=== PATIENT | female | born 1950 ===

== ENCOUNTER 2016-05-01 18:48 | Inpatient (IN) | payer MEDICARE, OTHER ==
[2016-05-01] MEDS ORDERED: SODIUM CHLORIDE 0.9% 1,000 ML IV STA ×4 (20:20→23:08)
[2016-05-01 20:42] LABS: Basophils % (A) 0 %; CH 30.1; Eosinophils # (A) 0.2 k/uL (0-0.7); Eosinophils % (A) 2 %; HCT 30.8 % (34.0-46.0); HDW 2.53; HGB 9.9 gm/dL (11.4-16.0); Luc # (Auto) 0.11; Luc % (Auto) 1; Lymphocytes # (A) 1.4 k/uL (1.0-4.8); Lymphocytes % (A) 12 %; MCH 30.4 pg (25.0-35.0); MCHC 32.1 g/dL (31.0-37.0); MCV 94.7 fL (80.0-100.0); Mean Platelet Volume 7.1; Monocytes # (A) 0.8 k/uL (0-1.0); Monocytes % (A) 7 %; Neutrophils # (A) 9.1 k/uL (1.3-7.7); Neutrophils % (A) 79 %; RBC 3.26 m/uL (3.80-5.40); RDW 12.7 % (11.5-15.5); WBC 11.6 k/uL (3.8-10.6); WBC (Perox) 12.01
[2016-05-01 20:50] LABS: Calcium 9.9 mg/dL (8.4-10.2); Magnesium 1.7 mg/dL (1.6-2.3); Phosphorous 5.6 mg/dL (2.5-4.5); Total Bilirubin 0.7 mg/dL (0.2-1.3); Total Protein 7.4 g/dL (6.3-8.2)
[2016-05-01 20:53] LABS: Potassium 7.8 mmol/L (3.5-5.1)
[2016-05-01 21:02] LABS: INR 1.1 (<1.1); Partial Thromboplastin Time 25.1 sec (22.0-30.0); Prothrombin Time 10.6 sec (9.0-12.0)
[2016-05-01 21:09] LABS: Creatine Kinase 178 U/L (30-135)
--- NOTE | 2016-05-01 21:13 | ED ---
General Adult HPI - General Chief complaint: Neuro Symptoms/Deficit Stated complaint: SENT BY DOC FOR POSS MINI STROKES Time Seen by Provider: 05/01/16 19:51 Source: family, RN notes reviewed, old records reviewed Mode of arrival: wheelchair Limitations: no limitations - History of Present Illness Initial comments: This is a 65-year-old female ER for evaluation. This patient presents for evaluation of not acting appropriate alter mental status, weakness, dizziness. Patient states she has dizziness in her head, pain in her back. She is here voluntarily without difficulty she feels nauseous with no vomiting. Patient states she's had a decreased activity level results of heart surgery 2 years ago. No fevers or cough congestion. Known diarrhea or vomiting - Related Data Home Medications Medication Instructions Recorded Confirmed Citalopram Hydrobromide [CeleXA] 20 mg PO HS 03/31/15 05/01/16 Multivitamins, Thera [Multivitamin] 1 tab PO DAILY 07/02/15 05/01/16 Atorvastatin [Lipitor] 80 mg PO HS 08/01/15 05/01/16 Carvedilol [Coreg*] 37.5 mg PO BID-W/MEALS 08/01/15 05/01/16 Esomeprazole Magnesium [NexIUM] 20 mg PO DAILY 08/01/15 05/01/16 Isosorbide Mononitrate ER [Imdur] 30 mg PO QAM 08/01/15 05/01/16 metFORMIN HCL 1,000 mg PO AC-BID 08/28/15 05/01/16 Furosemide [Lasix] 40 mg PO DAILY 05/01/16 05/01/16 Insulin Detemir [Levemir] 30 units SQ HS 05/01/16 05/01/16 Levothyroxine Sodium [Synthroid] 75 mcg PO DAILY 05/01/16 05/01/16 Spironolact/Hydrochlorothiazid 1 tab PO DAILY 05/01/16 05/01/16 [Aldactazide 25-25 MG] Spironolactone [Aldactone] 25 mg PO DAILY 05/01/16 05/01/16 Previous Rx's Medication Instructions Recorded Nitroglycerin Sl Tabs [Nitrostat] 0.4 mg SUBLINGUAL Q5M PRN #25 tab 04/03/15 Aspirin 81 mg PO DAILY #1 chewable 06/05/15 INSULIN LISPRO (humaLOG) [humaLOG 10 unit SQ AC-TID #1 vial 08/29/15 (formulary)] Losartan Potassium [Cozaar] 100 mg PO DAILY #30 tab 08/29/15 amLODIPine [Norvasc] 10 mg PO HS #30 tablet 08/29/15 Allergies Allergy/AdvReac Type Severity Reaction Status Date / Time No Known Allergies Allergy Verified 05/01/16 19:20 Review of Systems ROS Statement: Those systems with pertinent positive or pertinent negative responses have been documented in the HPI. ROS Other: All systems not noted in ROS Statement are negative. Past Medical History Past Medical History: Chest Pain / Angina, Diabetes Mellitus, Hypertension, Myocardial Infarction ([place]) Additional Past Medical History / Comment(s): OTHER PAST MEDICAL HX INCLUDES:rt cataract, coronary artery disease with Stent to Proximal LAD 03/31/2015, diabetes mellitus, hypertension, hyperlipidemia, hypoglycemic events Last Myocardial Infarction Date:: 03/31/2015 History of Any Multi-Drug Resistant Organisms: None Reported Past Surgical History: Breast Surgery, Heart Catheterization With Stent Additional Past Surgical History / Comment(s): left breast bx-neg, buttocks sx- pt stated:" they told me I had gangrene and had sx to remove", lt cataract Past Anesthesia/Blood Transfusion Reactions: No Reported Reaction Date of Last Stent Placement:: unknown Past Psychological History: Depression Smoking Status: Never smoker Past Alcohol Use History: None Reported Past Drug Use History: None Reported - Past Family History Father Family Medical History: Unable to Obtain Mother Family Medical History: Diabetes Mellitus, Hypertension General Exam Limitations: no limitations, altered mental status General appearance: alert, in no apparent distress, lethargic, obese Head exam: Present: atraumatic, normocephalic, normal inspection Eye exam: Present: normal appearance, PERRL, EOMI. Absent: scleral icterus, conjunctival injection, periorbital swelling ENT exam: Present: normal exam, mucous membranes moist Neck exam: Present: normal inspection. Absent: tenderness, meningismus, lymphadenopathy Respiratory exam: Present: normal lung sounds bilaterally. Absent: respiratory distress, wheezes, rales, rhonchi, stridor Cardiovascular Exam: Present: regular rate, normal rhythm, normal heart sounds. Absent: systolic murmur, diastolic murmur, rubs, gallop, clicks GI/Abdominal exam: Present: soft, normal bowel sounds. Absent: distended, tenderness, guarding, rebound, rigid Extremities exam: Present: normal inspection, full ROM, normal capillary refill. Absent: tenderness, pedal edema, joint swelling, calf tenderness Back exam: Present: normal inspection Neurological exam: Present: alert, oriented X3, CN II-XII intact Psychiatric exam: Present: normal affect, normal mood Skin exam: Present: warm, dry, intact, normal color. Absent: rash Course Vital Signs 05/01/16 05/01/16 19:00 22:31 Temperature 97.8 F 98.3 F Pulse Rate 84 84 Respiratory 20 18 Rate Blood Pressure 107/68 136/58 O2 Sat by Pulse 98 96 Oximetry - Reevaluation(s) Reevaluation #1: 05/01/16 21:12 Patient surgeries with mildly altered mental status, weakness Reevaluation #2: 05/01/16 23:12 Patient continues to sew improved mental status Reevaluation #3: 05/01/16 23:12 No EKG changes for hyperkalemia EKG Findings - EKG Comments: EKG Findings:: EKG shows Medical Decision Making - Medical Decision Making This 59 med ER for evaluation of weakness, patient had 2 medications, Aldactone and spironolactone, subsequently was elevated potassium, patient also noted to have severe dehydration and urinary tract infection and also mental status on exam. Patient given adequately resuscitation and feeling better, patient treated for elevated potassium, given rehydration, antibiotics for UTI, - Lab Data Result diagrams: 05/01/16 20:29 05/01/16 20:29 Lab Results 05/01/16 05/01/16 05/01/16 Range/Units 20:29 20:29 20:29 WBC 11.6 H (3.8-10.6) k/uL RBC 3.26 L (3.80-5.40) m/uL Hgb 9.9 L (11.4-16.0) gm/dL Hct 30.8 L (34.0-46.0) % MCV 94.7 (80.0-100.0) fL MCH 30.4 (25.0-35.0) pg MCHC 32.1 (31.0-37.0) g/dL RDW 12.7 (11.5-15.5) % Plt Count 254 (150-450) k/uL Neutrophils % 79 % Lymphocytes % 12 % Monocytes % 7 % Eosinophils % 2 % Basophils % 0 % Neutrophils # 9.1 H (1.3-7.7) k/uL Lymphocytes # 1.4 (1.0-4.8) k/uL Monocytes # 0.8 (0-1.0) k/uL Eosinophils # 0.2 (0-0.7) k/uL Basophils # 0.0 (0-0.2) k/uL PT (9.0-12.0) sec INR (<1.1) APTT (22.0-30.0) sec Sodium 139 (137-145) mmol/L Potassium 7.8 H* (3.5-5.1) mmol/L Chloride 114 H (98-107) mmol/L Carbon Dioxide 11 L (22-30) mmol/L Anion Gap 14 mmol/L BUN 59 H (7-17) mg/dL Creatinine 2.84 H (0.52-1.04) mg/dL Est GFR (MDRD) Af Amer 20 (>60 ml/min/1.73 sqM) Est GFR (MDRD) Non-Af 17 (>60 ml/min/1.73 sqM) Glucose 136 H (74-99) mg/dL POC Glucose (mg/dL) (75-99) mg/dL POC Glu Oil Well Perforator Operator ID Calcium 9.9 (8.4-10.2) mg/dL Phosphorus 5.6 H (2.5-4.5) mg/dL Magnesium 1.7 (1.6-2.3) mg/dL Total Bilirubin 0.7 (0.2-1.3) mg/dL AST 17 (14-36) U/L ALT 34 (9-52) U/L Alkaline Phosphatase 87 (38-126) U/L Total Creatine Kinase 178 H (30-135) U/L CK-MB (CK-2) 1.3 (0.0-2.4) ng/mL CK-MB (CK-2) Rel Index 0.7 Troponin I <0.012 (0.000-0.034) ng/mL Total Protein 7.4 (6.3-8.2) g/dL Albumin 3.8 (3.5-5.0) g/dL TSH 0.639 (0.465-4.680) mIU/L Urine Color Urine Appearance (Clear) Urine pH (5.0-8.0) Ur Specific [place] (1.001-1.035) Urine Protein (Negative) Urine Glucose (UA) (Negative) Urine Ketones (Negative) Urine Blood (Negative) Urine Nitrate (Negative) Urine Bilirubin (Negative) Urine Urobilinogen (<2.0) mg/dL Ur Leukocyte Esterase (Negative) Urine RBC (0-5) /hpf Urine WBC (0-5) /hpf Urine WBC Clumps (None) /hpf Ur Squamous Epith Cells (0-4) /hpf Urine Bacteria (None) /hpf Hyaline Casts (0-2) /lpf 05/01/16 05/01/16 05/01/16 Range/Units 20:29 21:45 23:06 WBC (3.8-10.6) k/uL RBC (3.80-5.40) m/uL Hgb (11.4-16.0) gm/dL Hct (34.0-46.0) % MCV (80.0-100.0) fL MCH (25.0-35.0) pg MCHC (31.0-37.0) g/dL RDW (11.5-15.5) % Plt Count (150-450) k/uL Neutrophils % % Lymphocytes % % Monocytes % % Eosinophils % % Basophils % % Neutrophils # (1.3-7.7) k/uL Lymphocytes # (1.0-4.8) k/uL Monocytes # (0-1.0) k/uL Eosinophils # (0-0.7) k/uL Basophils # (0-0.2) k/uL PT 10.6 (9.0-12.0) sec INR 1.1 (<1.1) APTT 25.1 (22.0-30.0) sec Sodium (137-145) mmol/L Potassium (3.5-5.1) mmol/L Chloride (98-107) mmol/L Carbon Dioxide (22-30) mmol/L Anion Gap mmol/L BUN (7-17) mg/dL Creatinine (0.52-1.04) mg/dL Est GFR (MDRD) Af Amer (>60 ml/min/1.73 sqM) Est GFR (MDRD) Non-Af (>60 ml/min/1.73 sqM) Glucose (74-99) mg/dL POC Glucose (mg/dL) 158 H (75-99) mg/dL POC Glu Oil Well Per[employer]ator Operator ID Kathi Arroyo Calcium (8.4-10.2) mg/dL Phosphorus (2.5-4.5) mg/dL Magnesium (1.6-2.3) mg/dL Total Bilirubin (0.2-1.3) mg/dL AST (14-36) U/L ALT (9-52) U/L Alkaline Phosphatase (38-126) U/L Total Creatine Kinase (30-135) U/L CK-MB (CK-2) (0.0-2.4) ng/mL CK-MB (CK-2) Rel Index Troponin I (0.000-0.034) ng/mL Total Protein (6.3-8.2) g/dL Albumin (3.5-5.0) g/dL TSH (0.465-4.680) mIU/L Urine Color Yellow Urine Appearance Cloudy H (Clear) Urine pH 5.0 (5.0-8.0) Ur Specific [place] 1.009 (1.001-1.035) Urine Protein Trace H (Negative) Urine Glucose (UA) Negative (Negative) Urine Ketones Negative (Negative) Urine Blood Negative (Negative) Urine Nitrate Negative (Negative) Urine Bilirubin Negative (Negative) Urine Urobilinogen <2.0 (<2.0) mg/dL Ur Leukocyte Esterase Large H (Negative) Urine RBC 2 (0-5) /hpf Urine WBC 103 H (0-5) /hpf Urine WBC Clumps Few H (None) /hpf Ur Squamous Epith Cells 1 (0-4) /hpf Urine Bacteria Many H (None) /hpf Hyaline Casts 49 H (0-2) /lpf - Radiology Data Radiology results: report reviewed (CT brain negative for acute disease, x-ray abdomen and pelvis the chest is negative for acute disease), image reviewed Critical Care Time Critical Care Time: Yes Total Critical Care Time: 31 Disposition Clinical Impression: ARF (acute renal failure), Hyperkalemia, Dehydration, Weakness, UTI (urinary tract infection) Disposition: ADMITTED IP TO THIS [facility] Condition: Serious Referrals: Eduin Moore MD [Primary Care Provider] - 1-2 days
[2016-05-01 21:22] LABS: Creatine Kinase MB 1.3 ng/mL (0.0-2.4); Troponin I <0.012 ng/mL (0.000-0.034)
--- NOTE | 2016-05-01 21:39 | XR ---
EXAMINATION TYPE: XR abdomen acute w cx DATE OF EXAM: 05/01/2016 9:10 PM COMPARISON: NONE HISTORY: Abdominal pain and cough TECHNIQUE: Single view of the chest and 2 views of the abdomen are submitted. FINDINGS: Single view of the chest fails demonstrate evidence for acute pulmonary disease. There is no evidence for pneumoperitoneum. The bowel gas pattern is unremarkable as there is air throughout nondilated small and large bowel. No sizeable air fluid levels. No mass effects are seen. No unusual calcifications. IMPRESSION: UNREMARKABLE STUDY.
[2016-05-01] MEDS ORDERED: SODIUM POLYSTYRENE SULFONATE 15 GM/60 ML BOTTLE PO STA (21:50)
[2016-05-01] MEDS ORDERED: DEXTROSE 50%-WATER 50 ML SYRINGE IVP STA (21:50)
[2016-05-01] MEDS ORDERED: SODIUM CHLORIDE 0.9% 500 ML IV STA (21:50)
[2016-05-01] MEDS ORDERED: INSULIN REGULAR 100 UNIT/ML VIAL IV ONE (21:50)
[2016-05-01 22:13] LABS: Appearance,Urine Cloudy (Clear); Bacteria,Urine Many /hpf; Bilirubin,Urine Negative (Negative); Glucose,Urine (UA) Negative (Negative); Ketones,Urine Negative (Negative); Leukocyte Esterase,Urine Large (Negative); Nitrite,Urine Negative (Negative); Particle Count 24055; Protein,Urine Trace (Negative); RBC,Urine 2 /hpf (0-5); Specific Gravity,Urine 1.009 (1.001-1.035); Squamous Epithelial Cell,Urine 1 /hpf (0-4); UA Billing (MACRO vs. MICRO) MICRO; Urobilinogen,Urine <2.0 mg/dL (<2.0); WBC,Urine 103 /hpf (0-5)
--- NOTE | 2016-05-01 22:22 | CT ---
EXAMINATION TYPE: CT brain wo con DATE OF EXAM: 05/01/2016 10:15 PM COMPARISON: 08/28/2015 HISTORY: weakness CT DLP: 1072.3 mGycm Automated exposure control for dose reduction was used. FINDINGS: Ventricles have normal size. There is no mass effect or midline shift. There is no sign of intracrani al hemorrhage. The calvarium is intact. There is mucosal thickening in the sphenoid and ethmoid front al and maxillary sinuses. IMPRESSION: There is pansinusitis that is significantly worse than last exam. No acute intracranial abnormality. There is a large fluid-filled sella turcica consistent with empty sella that is unchanged and usually is of no clinical significance.
[2016-05-01 23:07] LABS: Glucose,Whole Blood 158 mg/dL (75-99)
[2016-05-02 00:15] LABS: Calcium 9.1 mg/dL (8.4-10.2)
[2016-05-02 00:20] LABS: Potassium 6.2 mmol/L (3.5-5.1)
[2016-05-02 01:54] VITALS: BMI 38.0
[2016-05-02 06:51] LABS: Glucose,Whole Blood 154 mg/dL (75-99)
[2016-05-02 06:55] LABS: Basophils % (A) 0 %; CHCM 31.9; Eosinophils # (A) 0.1 k/uL (0-0.7); Eosinophils % (A) 1 %; HCT 31.6 % (34.0-46.0); HDW 2.61; HGB 9.9 gm/dL (11.4-16.0); Luc # (Auto) 0.09; Luc % (Auto) 1; Lymphocytes # (A) 1.2 k/uL (1.0-4.8); Lymphocytes % (A) 13 %; MCH 29.5 pg (25.0-35.0); MCHC 31.2 g/dL (31.0-37.0); MCV 94.6 fL (80.0-100.0); Mean Platelet Volume 7.5; Monocytes # (A) 0.7 k/uL (0-1.0); Monocytes % (A) 8 %; Neutrophils # (A) 7.1 k/uL (1.3-7.7); Neutrophils % (A) 77 %; RBC 3.34 m/uL (3.80-5.40); RDW 12.8 % (11.5-15.5); WBC 9.2 k/uL (3.8-10.6); WBC (Perox) 9.85
[2016-05-02 07:07] LABS: Calcium 9.1 mg/dL (8.4-10.2)
[2016-05-02 07:15] LABS: Potassium 6.6 mmol/L (3.5-5.1)
[2016-05-02] MEDS: INSULIN LISPRO (humaLOG) 300 UNIT/3 ML VIAL SQ SCH ×3 (07:42→19:29)
[2016-05-02] MEDS: LEVOTHYROXINE 75 MCG TAB PO SCH (07:42)
[2016-05-02] MEDS ORDERED: SODIUM CHLORIDE 0.9% 1,000 ML IV SCH (07:45)
[2016-05-02 08:05] LABS: Hemoglobin A1C 6.8 % (4.2-6.1)
[2016-05-02] MEDS ORDERED: ENOXAPARIN 40 MG/0.4 ML SYRINGE SQ SCH (09:00)
[2016-05-02] MEDS ORDERED: NITROGLYCERIN SL TABS 0.4 MG TAB SUBLINGUAL PRN (09:53)
[2016-05-02] MEDS ORDERED: SPIRONOLACTONE-HCTZ 25-25MG 1 EACH TAB PO SCH (10:00)
[2016-05-02] MEDS ORDERED: NON-FORMULARY DRUG (Losartan Potassium [Cozaar] 100 MG) PO SCH (10:00)
[2016-05-02] MEDS ORDERED: SODIUM CHLORIDE 0.45% 1,000 ML IV SCH (10:00)
[2016-05-02] MEDS ORDERED: NON-FORMULARY DRUG (Metformin Hcl [Metformin Hcl] 1,000 MG) PO SCH (10:00)
[2016-05-02] MEDS ORDERED: FUROSEMIDE 40 MG TAB PO SCH (10:00)
[2016-05-02] MEDS ORDERED: SPIRONOLACTONE 25 MG TAB PO SCH (10:00)
[2016-05-02 11:42] LABS: Glucose,Whole Blood 118 mg/dL (75-99)
[2016-05-02] MEDS: ASPIRIN 81 MG CHEW PO SCH (12:34)
[2016-05-02] MEDS: CARVEDILOL 12.5 MG TAB PO SCH ×2 (12:34→19:40)
[2016-05-02] MEDS: ISOSORBIDE MONONITRATE ER 30 MG TAB.ER.24H PO SCH (12:35)
[2016-05-02] MEDS: PANTOPRAZOLE 40 MG TABLET PO SCH (12:35)
[2016-05-02] MEDS: SODIUM POLYSTYRENE SULFONATE 15 GM/60 ML BOTTLE PO SCH ×2 (12:38→19:40)
[2016-05-02] MEDS: SODIUM CHLORIDE 0.45% 1,000 ML with SODIUM BICARB (1 MEQ/ML) 100 ML IV SCH ×4 (14:04→23:11)
--- NOTE | 2016-05-02 14:26 | HP ---
DATE OF ADMISSION: 05/01/2016 PRESENTING COMPLAINT: Weak and tired. HISTORY OF PRESENTING COMPLAINT: This is a 65-year-old patient of Dr. Moore with rather extensive medical history. Patient's chronic stable medical conditions include congestive heart failure ejection fraction ( )%, hypertensive heart disease, moderate secondary pulmonary hypertension, coronary artery disease with stent to the LAD, hyperlipidemia, diabetes mellitus type 2, morbid obesity, depression, hypertension. Patient's family is here. Patient recently had flu, decreased oral intake. Has been feeling weak, tired and rundown. When presented to the ER was found to be in acute renal failure with a BUN 59, creatinine 2.84 and potassium 7.8. Patient had been on ( ) renal offensive drugs. Admitted for the same, just tired and rundown. REVIEW OF SYSTEMS: CONSTITUTIONAL: Tired. HEENT: None. RESPIRATORY: None. CARDIOVASCULAR: None. GASTROINTESTINAL: None. GENITOURINARY: None. MUSCULOSKELETAL: Pain in the joints. DERMATOLOGICAL: None. HEMATOLOGICAL: None. LYMPHATICS: None. PSYCHIATRY: Slightly confused. NEUROLOGICAL: None. Past medical history of hypertension, depression, diabetes mellitus type 2, hyperlipidemia, coronary artery disease with stent to the LAD, moderate mitral regurgitation, moderate secondary pulmonary hypertension, hypertensive heart disease, congestive heart failure; ejection fraction 35% to 40%. PAST SURGICAL HISTORY: Cardiac cath with stent, left breast biopsy, left buttock gangrene surgically repaired. SOCIAL HISTORY: No smoking. No alcohol. . FAMILY HISTORY: Noncontributory to presentation. ALLERGIES: None. HOME MEDICATIONS: 1. Metformin 1000 mg p.o. b.i.d. 2. Norvasc 10 mg p.o. q.h.s. 3. Aldactone 25 mg p.o. daily. 4. Aldactazide 25/25 one tablet p.o. daily. 5. Nitrostat 0.4 sublingual q.5 p.r.n. 6. Multivitamin 1 tablet p.o. daily. 7. Cozaar 100 mg p.o. daily. 8. Synthroid 75 mcg p.o. daily. 9. Imdur ER 30 mg p.o. daily. 10. Levemir 30 units subcu q.h.s. 11. Humalog 10 units t.i.d. 12. Lasix 40 mg p.o. daily. 13. Nexium 20 mg p.o. daily. 14. Celexa 20 mg p.o. q.h.s. 15. Coreg 37.5 p.o. b.i.d. 16. Lipitor 80 mg p.o. q.h.s. 17. Aspirin 81 mg p.o. daily. ALLERGIES: None. ON EXAMINATION: VITAL SIGNS ON PRESENTATION: Temperature 97.8, pulse 84, respirations 20, blood pressure 107/68, pulse ox 98% on room air. GENERAL APPEARANCE: Well built, BMI 38.1, lying in bed, tired appearing. EYES: Pupils equal. Conjunctivae normal. HEENT: External appearance of nose and ears normal. Oral cavity normal. NECK: JVD not raised. Mass not palpable. RESPIRATORY: Effort normal. LUNGS: Diminished breath sounds. CARDIOVASCULAR: First and second sounds normal. No edema. ABDOMEN: Soft, nontender. Liver and spleen not palpable. PSYCHIATRY: Tired appearing, able to answer simple questions. NEUROLOGICAL: Pupils equal. Cranial nerves grossly intact. Power and sensation grossly intact. INVESTIGATIONS: White count11.6, hemoglobin 9.9. Potassium 7.8, initially repeat 6.2. BUN 59, creatinine 2.84. Patient's BUN and creatinine was normal on 08/29/15. Glucose 133. UA positive for leukocyte esterase, bacteria. ASSESSMENT: 1. Acute severe renal failure; could be ( ) acute tubular necrosis and also combination of prerenal in a patient with decreased oral intake. Patient is also on Aldactone, Aldactazide, Cozaar, Lasix. 2. Severe hyperkalemia from renal failure and medication induced. 3. Chronic congestive heart failure from diastolic dysfunction, ejection fraction 55% from underlying coronary artery disease. 4. Hypertensive heart disease, concentric left ventricular hypertrophy. 5. Moderate secondary pulmonary hypertension. 6. Moderate mitral regurgitation, nonrheumatic. 7. Coronary artery disease with stent to the left anterior descending artery in March 2015. 8. Hyperlipidemia. 9. Diabetes mellitus type 2, chronically on insulin. 10. Morbid obesity; body mass index more than 35. 11. Depression, not otherwise specified, controlled. PLAN: At this point patient's renal offensive drugs including metformin, Cozaar, Aldactazide, Aldactone all are discontinued. Patient will be put on half saline and given bicarb will be added. Accu-Cheks will be closely followed. Keep it in mind patient has got underlying congestive heart failure. Care was discussed with the family at the bedside. Lovenox for DVT prophylaxis. Accu-Cheks will be closely followed. Patient also given Kayexalate. Will also add some ( ) for hyperkalemia and put the patient on low potassium diet.
[2016-05-02 16:54] LABS: Glucose,Whole Blood 129 mg/dL (75-99)
[2016-05-02 20:39] LABS: Glucose,Whole Blood 202 mg/dL (75-99)
[2016-05-02] MEDS: amLODIPine 10 MG TAB PO SCH (20:46)
[2016-05-02] MEDS: ATORVASTATIN 80 MG TAB PO SCH (20:46)
[2016-05-02] MEDS: CITALOPRAM HYDROBROMIDE 20 MG TAB PO SCH (20:47)
[2016-05-02] MEDS: INSULIN DETEMIR 100 UNIT/ML 10 ML VIAL SQ SCH (21:03)
[2016-05-03 06:14] LABS: Glucose,Whole Blood 126 mg/dL (75-99)
[2016-05-03] MEDS: CARVEDILOL 12.5 MG TAB PO SCH ×2 (06:54→17:10)
[2016-05-03] MEDS: LEVOTHYROXINE 75 MCG TAB PO SCH (06:54)
[2016-05-03] MEDS: INSULIN LISPRO (humaLOG) 300 UNIT/3 ML VIAL SQ SCH ×3 (07:25→17:26)
[2016-05-03] MEDS: PANTOPRAZOLE 40 MG TABLET PO SCH (08:44)
[2016-05-03] MEDS: ASPIRIN 81 MG CHEW PO SCH (08:44)
[2016-05-03] MEDS: ISOSORBIDE MONONITRATE ER 30 MG TAB.ER.24H PO SCH (08:44)
[2016-05-03] MEDS ORDERED: ENOXAPARIN 30 MG/0.3 ML SYRINGE SQ SCH (09:00)
[2016-05-03 11:29] LABS: Glucose,Whole Blood 74 mg/dL (75-99)
[2016-05-03 12:00] LABS: Anion Gap 9 mmol/L; Blood Urea Nitrogen 26 mg/dL (7-17); Carbon Dioxide 21 mmol/L (22-30); Chloride 119 mmol/L (98-107); Glucose 70 mg/dL (74-99); Non-African American GFR(MDRD) 50 (>60 ml/min/1.73 sqM); Sodium 149 mmol/L (137-145)
[2016-05-03 12:13] LABS: Basophils % (A) 0 %; CH 30.2; CHCM 32.2; Eosinophils # (A) 0.3 k/uL (0-0.7); Eosinophils % (A) 4 %; HCT 28.8 % (34.0-46.0); HDW 2.53; HGB 9.1 gm/dL (11.4-16.0); Luc # (Auto) 0.17; Luc % (Auto) 2; Lymphocytes # (A) 1.9 k/uL (1.0-4.8); Lymphocytes % (A) 23 %; MCH 29.7 pg (25.0-35.0); MCHC 31.5 g/dL (31.0-37.0); MCV 94.3 fL (80.0-100.0); Monocytes # (A) 0.7 k/uL (0-1.0); Monocytes % (A) 9 %; Neutrophils # (A) 5.2 k/uL (1.3-7.7); Neutrophils % (A) 63 %; RBC 3.06 m/uL (3.80-5.40); RDW 12.7 % (11.5-15.5); WBC 8.2 k/uL (3.8-10.6)
[2016-05-03] MEDS: SODIUM CHLORIDE 0.45% 1,000 ML with SODIUM BICARB (1 MEQ/ML) 100 ML IV SCH ×4 (15:37→22:49)
[2016-05-03 16:20] LABS: Glucose,Whole Blood 108 mg/dL (75-99)
--- NOTE | 2016-05-03 20:36 | PN ---
DATE OF SERVICE: 05/03/2016 PRESENTING COMPLAINT: ( ) INTERVAL HISTORY: This is a patient with multiple medical problems with acute sever renal failure from decreased oral intake and strong diuretics. Patient to doing much better, up to the bathroom. Kidney functions improving. Potassium has come down. Patient is far more perky. Review of systems done for constitutional, cardiovascular, GI, pulmonary; relevant findings as above. Current medications are reviewed. On examination, temperature 97.6, pulse 83, respirations 17, blood pressure 115/69, pulse ox 98% on room air. GENERAL APPEARANCE: Lying in bed, comfortable. EYES: Pupils equal. Conjunctivae normal. NECK: JVD not raised. Mass not palpable. RESPIRATORY: Effort normal. LUNGS: Diminished breath sounds. CARDIOVASCULAR: First and second sounds normal. No edema. ABDOMEN: Soft, nontender. Liver and spleen not palpable. PSYCHIATRY: Alert and oriented x3. Mood and affect normal. INVESTIGATIONS: White count 8.2. Sodium 149. Potassium 5, BUN 26, creatinine 1.10. Urine culture gram-negative bacilli. ASSESSMENT: 1. Acute severe renal failure, probably acute tubular necrosis, and could be prerenal from decreased oral intake and dry kidneys from diuretics. 2. Severe hyperkalemia from chronic renal failure and medication induced, improving. 3. Chronic congestive heart failure from diastolic dysfunction, ejection fraction 55%, from underlying coronary artery disease. 4. Hypertensive heart disease with concentric left ventricular hypertrophy. 5. Acute urinary tract infection with gram-negative bacilli. 6. Moderate secondary pulmonary hypertension from underlying congestive heart failure. 7. Moderate mitral regurgitation, nonrheumatic. 8. Coronary artery disease with stent to the left anterior descending in March 2015. 9. Hyperlipidemia. 10. Diabetes mellitus type 2, chronically on insulin. 11. Morbid obesity, body mass index of more than 35. 12. Depression, not otherwise specified. PLAN: Patient overall is doing much better. Will keep the current drip rates running. Check labs in the morning. Follow.
[2016-05-03 20:37] LABS: Glucose,Whole Blood 153 mg/dL (75-99)
[2016-05-03] MEDS: CITALOPRAM HYDROBROMIDE 20 MG TAB PO SCH (21:00)
[2016-05-03] MEDS: amLODIPine 10 MG TAB PO SCH (21:00)
[2016-05-03] MEDS: ATORVASTATIN 80 MG TAB PO SCH (21:00)
[2016-05-03] MEDS: INSULIN DETEMIR 100 UNIT/ML 10 ML VIAL SQ SCH (21:11)
[2016-05-04 05:41] LABS: Glucose,Whole Blood 92 mg/dL (75-99)
[2016-05-04] MEDS: CARVEDILOL 12.5 MG TAB PO SCH ×2 (06:35→17:09)
[2016-05-04] MEDS: LEVOTHYROXINE 75 MCG TAB PO SCH (06:35)
[2016-05-04 07:24] LABS: Anion Gap 9 mmol/L; Blood Urea Nitrogen 19 mg/dL (7-17); Calcium 9.2 mg/dL (8.4-10.2); Carbon Dioxide 26 mmol/L (22-30); Chloride 115 mmol/L (98-107); Glucose 86 mg/dL (74-99); Non-African American GFR(MDRD) 55 (>60 ml/min/1.73 sqM); Potassium 4.8 mmol/L (3.5-5.1); Sodium 150 mmol/L (137-145)
[2016-05-04] MEDS: INSULIN LISPRO (humaLOG) 300 UNIT/3 ML VIAL SQ SCH ×3 (07:25→17:02)
[2016-05-04] MEDS: PANTOPRAZOLE 40 MG TABLET PO SCH (08:50)
[2016-05-04] MEDS: ASPIRIN 81 MG CHEW PO SCH (08:50)
[2016-05-04] MEDS: ENOXAPARIN 40 MG/0.4 ML SYRINGE SQ SCH (08:50)
[2016-05-04] MEDS: ISOSORBIDE MONONITRATE ER 30 MG TAB.ER.24H PO SCH (08:50)
[2016-05-04 11:48] LABS: Glucose,Whole Blood 62 mg/dL (75-99)
[2016-05-04] MEDS ORDERED: ACETAMINOPHEN TAB 325 MG TAB PO PRN (11:52)
[2016-05-04 11:58] LABS: Glucose,Whole Blood 62 mg/dL (75-99)
[2016-05-04 12:11] LABS: Glucose,Whole Blood 70 mg/dL (75-99)
[2016-05-04 16:40] LABS: Glucose,Whole Blood 158 mg/dL (75-99)
[2016-05-04 21:02] LABS: Glucose,Whole Blood 137 mg/dL (75-99)
[2016-05-04] MEDS: amLODIPine 10 MG TAB PO SCH (21:35)
[2016-05-04] MEDS: CITALOPRAM HYDROBROMIDE 20 MG TAB PO SCH (21:35)
[2016-05-04] MEDS: INSULIN DETEMIR 100 UNIT/ML 10 ML VIAL SQ SCH (21:35)
[2016-05-04] MEDS: FUROSEMIDE 40 MG TAB PO SCH (21:35)
[2016-05-04] MEDS: ATORVASTATIN 80 MG TAB PO SCH (21:35)
[2016-05-04] MEDS: SODIUM CHLORIDE 0.45% 1,000 ML IV SCH (21:36)
[2016-05-05 06:01] LABS: Glucose,Whole Blood 127 mg/dL (75-99)
[2016-05-05] MEDS: CARVEDILOL 12.5 MG TAB PO SCH (06:50)
[2016-05-05] MEDS: LEVOTHYROXINE 75 MCG TAB PO SCH (06:50)
[2016-05-05] MEDS: INSULIN LISPRO (humaLOG) 300 UNIT/3 ML VIAL SQ SCH ×2 (07:16→12:23)
[2016-05-05 07:27] LABS: Anion Gap 9 mmol/L; Blood Urea Nitrogen 19 mg/dL (7-17); Carbon Dioxide 26 mmol/L (22-30); Chloride 110 mmol/L (98-107); Glucose 112 mg/dL (74-99); Non-African American GFR(MDRD) 50 (>60 ml/min/1.73 sqM); Potassium 4.5 mmol/L (3.5-5.1); Sodium 145 mmol/L (137-145)
[2016-05-05] MEDS: PANTOPRAZOLE 40 MG TABLET PO SCH (09:14)
[2016-05-05] MEDS: ASPIRIN 81 MG CHEW PO SCH (09:14)
[2016-05-05] MEDS: FUROSEMIDE 40 MG TAB PO SCH (09:14)
[2016-05-05] MEDS: ISOSORBIDE MONONITRATE ER 30 MG TAB.ER.24H PO SCH (09:14)
[2016-05-05] MEDS: ENOXAPARIN 40 MG/0.4 ML SYRINGE SQ SCH (09:14)
[2016-05-05] MEDS: SODIUM CHLORIDE 0.45% 1,000 ML IV SCH (09:20)
[2016-05-05 10:21] VITALS: RESP 18
--- NOTE | 2016-05-05 11:25 | PN ---
DATE OF SERVICE: 05/04/2016 PRESENTING COMPLAINT: Renal failure. INTERVAL HISTORY: This patient presented with acute severe renal failure from diuretics and other medications, doing better. Up to the bathroom. at the bedside. Review of systems done for constitutional, cardiovascular, GI, pulmonary; relevant findings as above. Current medications are reviewed. On examination, temperature 97, pulse 80, respirations 14, blood pressure 145/68, pulse ox 95% on room air. GENERAL APPEARANCE: Lying in bed, more awake, comfortable. EYES: Pupils equal. Conjunctivae normal. NECK: JVD not raised. Mass not palpable. RESPIRATORY: Effort normal. LUNGS: Diminished breath sounds. CARDIOVASCULAR: First and second sounds normal. No edema. ABDOMEN: Soft, nontender. Liver and spleen not palpable. PSYCHIATRY: Alert and oriented x3. Mood and affect normal. INVESTIGATIONS: Potassium 4.8, chloride 115, BUN 19, creatinine is one. Urine is growing Klebsiella pneumoniae. ASSESSMENT: 1. Acute severe renal failure, probably acute tubular necrosis, could be prerenal from decreased oral intake from ( ) kidneys from diuretics with biochemical improvement. 2. Severe hypokalemia from underlying renal failure medication induced, improved. 3. Chronic congestive heart failure from diastolic dysfunction, ejection fraction 55%, underlying coronary artery disease. 4. Hypertensive heart disease with concentric left ventricular hypertrophy. 5. Acute urinary tract infection from Klebsiella pneumoniae. 6. Moderate secondary pulmonary hypertension, underlying congestive heart failure. 7. Moderate mitral regurgitation, nonrheumatic. 8. Coronary artery disease with stent to the left anterior descending March 2015. 9. Hyperlipidemia. 10. Type 2 diabetes mellitus, chronically on insulin. 11. Moderate obesity body mass index more than 35. 12. Depressive not otherwise specified. PLAN: Since Sodium is running a bit high, we will give half saline. The patient will be started back on Aldactone and Lasix shortly.
[2016-05-05 12:05] LABS: Glucose,Whole Blood 79 mg/dL (75-99)
[2016-05-05] MEDS ORDERED: LOSARTAN 50 MG TAB PO STA (13:28)
[2016-05-05 15:36] VITALS: BP 165/77; PULSE 71; TEMP 98.8
--- NOTE | 2016-05-06 10:14 | DS ---
DATE OF ADMISSION: 05/01/2016 DATE OF DISCHARGE: 05/05/2016 FINAL DIAGNOSIS(ES): 1. Acute severe renal failure, probably from acute tubular necrosis element of prerenal as possible from taking medications in the setting of being dehydration. 2. Severe hypokalemia from underlying renal failure, medication induced, improved. 3. Chronic congestive heart failure from diastolic dysfunction, ejection fraction 55%, underlying coronary artery disease. 4. Hypertensive heart disease with concentric left ventricular hypertrophy. 5. Acute urinary tract infection from Klebsiella pneumoniae. 6. Moderate secondary pulmonary hypertension underlying chronic congestive heart failure. 7. Moderate mitral regurgitation nonrheumatic. 8. Coronary artery disease with stent of the left anterior descending coronary artery in December 2014. 9. Hyperlipidemia. 10. Diabetes mellitus type 2, chronically on insulin. 11. Moderate obesity; body mass index of more than 35. 12. Depression not otherwise specified. 13. Acute urinary tract infection from Klebsiella pneumoniae, probably urethritis. HOSPITAL COURSE: This patient presented with acute renal failure. Creatinine was 2.84. Did come down finally to 1.1 at the time of discharge. The patient doing much better. Tolerating a diet. Walking up and about. Sodium also came down. Care was discussed with the patient at the bedside. On exam, lungs are clear. CARDIOVASCULAR: First and second sounds normal. DISCHARGE MEDICATIONS: 1. Celexa 20 mg p.o. q.h.s. 2. Nitrostat 0.4 sublingual q.5 p.r.n. 3. Aspirin 81 mg p.o. daily. 4. Multivitamin 1 tablet p.o. daily. 5. Lipitor 80 mg q.h.s. 6. Coreg 37.5 p.o. b.i.d. 7. Nexium 20 mg p.o. daily. 8. Imdur ER 30 mg p.o. daily. 9. Metformin 1000 mg p.o. b.i.d. 10. Humalog 10 units a.c. t.i.d. 11. Cozaar 100 milligrams p.o. daily. 12. Norvasc 10 mg p.o. q.h.s. 13. Lasix 40 mg p.o. daily. 14. Levemir 13 units subcu q.h.s. 15. Synthroid 75 mcg p.o. daily. 16. Keflex 250 mg p.o. q8 ( ) capsules. 17. Aldactone 12.5 p.o. daily. Follow up with Dr. Rizvi on 05/12/2016, BMP in 3 to 5 days. LUNGS: Are clear. CARDIOVASCULAR: First and second sounds normal.
== END 2016-05-05 16:05 | disposition home health service (06) | DRG 683 ==
LOC: EC 18:48 → 6SEL 23:09
PROVIDERS: ADMIT Hospitalist; ATTEND Hospitalist
DX: N17.0 Acute kidney failure with tubular necrosis (principal); I50.32 Chronic diastolic (congestive) heart failure; I27.2 Other secondary pulmonary hypertension; E87.5 Hyperkalemia; E66.01 Morbid (severe) obesity due to excess calories; I11.0 Hypertensive heart disease with heart failure; B96.1 Klebsiella pneumoniae [K. pneumoniae] as the cause of diseases classified elsewhere; E78.5 Hyperlipidemia, unspecified; E86.0 Dehydration; F32.9 Major depressive disorder, single episode, unspecified; I25.10 Atherosclerotic heart disease of native coronary artery without angina pectoris; I25.2 Old myocardial infarction; I34.0 Nonrheumatic mitral (valve) insufficiency; E11.9 Type 2 diabetes mellitus without complications; N34.2 Other urethritis; Z79.4 Long term (current) use of insulin; Z79.82 Long term (current) use of aspirin; Z79.899 Other long term (current) drug therapy; Z95.5 Presence of coronary angioplasty implant and graft; Z68.38 Body mass index [BMI] 38.0-38.9, adult; Z82.49 Family history of ischemic heart disease and other diseases of the circulatory system
CPT/HCPCS: 36415; 70450; 74022; 80048; 80053; 81001; 82550; 82553; 83036; 83735; 84100; 84443; 84484; 85025; 85610; 85730; 87077; 87086; 87186; 96361; 96374; 99291

== ENCOUNTER 2016-05-23 18:41 | Emergency (ER) | payer MEDICARE ==
[2016-05-23 19:44] LABS: Glucose,Whole Blood 69 mg/dL (75-99)
--- NOTE | 2016-05-23 19:54 | ED ---
General Adult HPI - General Chief complaint: Syncope Stated complaint: Low blood sugar Time Seen by Provider: 05/23/16 19:21 Source: patient, family, RN notes reviewed Mode of arrival: ambulatory Limitations: no limitations - History of Present Illness Initial comments: Patient is a pleasant 65-year-old female presenting to the emergency Department with hypoglycemia. Patient took her insulin and then did not eat dinner. Patient did have similar problems a couple of weeks ago and other times as well. Patient reportedly lose her appetite after taking the insulin. Patient had blood sugar reported at 29. EMS provided medication and patient feels normal at this time. Patient is currently eating in the emergency department. No injury. No weakness or confusion. - Related Data Home Medications Medication Instructions Recorded Confirmed Citalopram Hydrobromide [CeleXA] 20 mg PO HS 03/31/15 05/23/16 Multivitamins, Thera [Multivitamin] 1 tab PO DAILY 07/02/15 05/23/16 Atorvastatin [Lipitor] 80 mg PO HS 08/01/15 05/23/16 Carvedilol [Coreg*] 37.5 mg PO BID-W/MEALS 08/01/15 05/23/16 Esomeprazole Magnesium [NexIUM] 20 mg PO DAILY 08/01/15 05/23/16 Isosorbide Mononitrate ER [Imdur] 30 mg PO QAM 08/01/15 05/23/16 Insulin Detemir [Levemir] 25 units SQ BID 05/01/16 05/23/16 Levothyroxine Sodium [Synthroid] 75 mcg PO DAILY 05/01/16 05/23/16 Meclizine [Antivert] 12.5 mg PO BID 05/23/16 05/23/16 Spironolactone [Aldactone] 25 mg PO DAILY 05/23/16 05/23/16 amLODIPine [Norvasc] 10 mg PO HS 05/23/16 05/23/16 glyBURIDE [Diabeta] 5 mg PO AC-BRKFST 05/23/16 05/23/16 Previous Rx's Medication Instructions Recorded Nitroglycerin Sl Tabs [Nitrostat] 0.4 mg SUBLINGUAL Q5M PRN #25 tab 04/03/15 Aspirin 81 mg PO DAILY #1 chewable 06/05/15 INSULIN LISPRO (humaLOG) [humaLOG 10 unit SQ AC-TID #1 vial 08/29/15 (formulary)] Losartan Potassium [Cozaar] 100 mg PO DAILY #30 tab 08/29/15 Allergies Allergy/AdvReac Type Severity Reaction Status Date / Time No Known Allergies Allergy Verified 05/23/16 19:30 Review of Systems ROS Statement: Those systems with pertinent positive or pertinent negative responses have been documented in the HPI. ROS Other: All systems not noted in ROS Statement are negative. Constitutional: Denies: fever Eyes: Denies: eye pain ENT: Denies: ear pain Respiratory: Denies: cough Cardiovascular: Denies: chest pain Endocrine: Denies: fatigue Gastrointestinal: Denies: abdominal pain Genitourinary: Denies: urgency Musculoskeletal: Denies: back pain Skin: Denies: rash Neurological: Denies: headache Past Medical History Past Medical History: Chest Pain / Angina, Diabetes Mellitus, Hypertension, Myocardial Infarction ([place]) Additional Past Medical History / Comment(s): OTHER PAST MEDICAL HX INCLUDES:rt cataract, coronary artery disease with Stent to Proximal LAD 03/31/2015, diabetes mellitus, hypertension, hyperlipidemia, hypoglycemic events Last Myocardial Infarction Date:: 03/31/2015 History of Any Multi-Drug Resistant Organisms: None Reported Past Surgical History: Breast Surgery, Heart Catheterization With Stent Additional Past Surgical History / Comment(s): left breast bx-neg, buttocks sx- pt stated:" they told me I had gangrene and had sx to remove", lt cataract Past Anesthesia/Blood Transfusion Reactions: No Reported Reaction Date of Last Stent Placement:: unknown Past Psychological History: No Psychological Hx Reported, Depression Smoking Status: Never smoker Past Alcohol Use History: None Reported Past Drug Use History: None Reported - Past Family History Father Family Medical History: Unable to Obtain Mother Family Medical History: Diabetes Mellitus, Hypertension General Exam Limitations: no limitations General appearance: alert, in no apparent distress Head exam: Present: atraumatic, normocephalic Eye exam: Present: normal appearance, PERRL, EOMI. Absent: nystagmus ENT exam: Present: normal oropharynx Neck exam: Present: normal inspection Respiratory exam: Present: normal lung sounds bilaterally Cardiovascular Exam: Present: regular rate, normal rhythm GI/Abdominal exam: Present: soft. Absent: tenderness Extremities exam: Present: normal inspection Neurological exam: Present: alert, oriented X3, CN II-XII intact. Absent: motor sensory deficit Expanded Patient oriented to: Present: person, place, time Speech: Present: fluid speech Cranial nerves: EOM's Intact: Normal Motor strength exam: RUE: 5, LUE: 5, RLE: 5, LLE: 5 Eye Response: (4) open spontaneously Motor Response: (6) obeys commands Verbal Response: (5) oriented Psychiatric exam: Present: normal affect, normal mood Skin exam: Absent: rash Course Vital Signs 05/23/16 05/23/16 05/23/16 18:43 19:25 20:10 Temperature 96.8 F L 97.0 F L Pulse Rate 93 57 L 56 L Respiratory 14 16 18 Rate Blood Pressure 136/65 137/69 130/61 O2 Sat by Pulse 94 L 96 99 Oximetry 05/23/16 20:40 Temperature 97.6 F Pulse Rate 62 Respiratory 18 Rate Blood Pressure 130/60 O2 Sat by Pulse 98 Oximetry - Reevaluation(s) Reevaluation #1: 05/23/16 19:52 Patient and family are advised of the warnings of taking insulin and not eating. There advised at this time to take insulin at the end of the meal to avoid these problems. If symptoms persist a will need to decrease insulin dose. 05/23/16 20:33 Patient reexamined and resting comfortably in bed. Patient is symptom-free. Patient is still oriented. Patient later states she does have some neck discomfort. Family states this has been chronic for over 6 months. Patient has seen her doctor for this. Patient has mild tenderness left lateral cervical spine in the C2-C3 region. Patient is agreeable to have x-rays done. EKG Findings - EKG Comments: EKG Findings:: Sinus bradycardia at 59. PA 142. QRS 80. QT 460. QTC 455. Normal axis. Low QRS voltage. No acute ST change. Medical Decision Making - Lab Data Lab Results 05/23/16 05/23/16 05/23/16 Range/Units 19:41 20:06 20:37 POC Glucose (mg/dL) 69 L 90 132 H (75-99) mg/dL POC Glu Aquatics Specialist [place] Ma Nicole Smith, Nicole - Radiology Data Radiology results: image reviewed (X-ray of the cervical spine shows no acute process) Disposition Clinical Impression: Hypoglycemia Disposition: HOME SELF-CARE Condition: Stable Instructions: Hypoglycemia in a Person with Diabetes (ED) Additional Instructions: Do not take insulin without eating. Please follow-up with primary care physician Thursday for recheck and further discussion regarding insulin. Return for low blood sugar, weakness, worsening symptoms or other concerns. Referrals: Eduin Moore MD [Primary Care Provider] - 1-2 days Tosha Lauren DO [Doctor of Osteopathic Medicine] - 1-2 days
[2016-05-23 20:07] LABS: Glucose,Whole Blood 90 mg/dL (75-99)
[2016-05-23 20:39] LABS: Glucose,Whole Blood 132 mg/dL (75-99)
--- NOTE | 2016-05-23 21:07 | XR ---
EXAMINATION TYPE: XR cervical spine comp DATE OF EXAM: 05/23/2016 8:53 PM COMPARISON: NONE HISTORY: Neck pain TECHNIQUE: 5 views FINDINGS: The cervical vertebra normal spacing and alignment. Posterior elements are intact. Neural f oramina are widely patent. Atlantoaxial facet joint is normal. There are no cervical ribs. IMPRESSION: Negative cervical spine exam.
[2016-05-23 21:22] VITALS: PULSE 60
[2016-05-23 21:23] LABS: Glucose,Whole Blood 153 mg/dL (75-99)
[2016-05-23 21:30] VITALS: BP 147/70; RESP 18; TEMP 97
[2016-05-24 03:56] LABS: Glucose,Whole Blood 81 mg/dL (75-99)
== END 2016-05-23 21:30 | disposition home or self-care (01) ==
LOC: EC 18:41
DX: E11.649 Type 2 diabetes mellitus with hypoglycemia without coma (principal); I25.2 Old myocardial infarction; I25.10 Atherosclerotic heart disease of native coronary artery without angina pectoris; Z95.5 Presence of coronary angioplasty implant and graft; E78.5 Hyperlipidemia, unspecified; I10 Essential (primary) hypertension; Z79.82 Long term (current) use of aspirin; Z79.4 Long term (current) use of insulin; Z79.899 Other long term (current) drug therapy
CPT/HCPCS: 36415; 72050; 93005; 99284

== ENCOUNTER 2016-05-28 14:25 | Emergency (ER) | payer MEDICARE ==
--- NOTE | 2016-05-28 14:50 | ED ---
General Adult HPI - General Chief complaint: Recheck/Abnormal Lab/Rx Stated complaint: HYPOGLYCEMIA Time Seen by Provider: 05/28/16 14:38 Source: patient Mode of arrival: EMS Limitations: no limitations - History of Present Illness Initial comments: This is a 65-year-old female who presents to the department for hypoglycemia. The patient is currently on a regimen of glyburide 5 mg daily, Levemir 20 units twice a day, and Humalog 10 units 3 times a day with meals. The patient woke up this morning and had low blood sugar around 50. She ate breakfast and they increased however just before lunch she started mumbling and became more confused. The blood sugar was checked at that time was 39. EMS was called that noted that her blood sugar was low. She was given glucose and had improvement in her mental status. The patient currently has no complaints. Of note she was recently changed on May 13 from metformin to glyburide. She's had multiple ED visits for hypoglycemia as well. Patient states that she has not missed any meals except for lunch today. No other complaints. - Related Data Home Medications Medication Instructions Recorded Confirmed Citalopram Hydrobromide [CeleXA] 20 mg PO HS 03/31/15 05/28/16 Multivitamins, Thera [Multivitamin] 1 tab PO DAILY 07/02/15 05/28/16 Atorvastatin [Lipitor] 80 mg PO HS 08/01/15 05/28/16 Carvedilol [Coreg*] 37.5 mg PO BID-W/MEALS 08/01/15 05/28/16 Esomeprazole Magnesium [NexIUM] 20 mg PO DAILY 08/01/15 05/28/16 Isosorbide Mononitrate ER [Imdur] 30 mg PO QAM 08/01/15 05/28/16 Insulin Detemir [Levemir] 20 units SQ BID 05/01/16 05/28/16 Levothyroxine Sodium [Synthroid] 75 mcg PO DAILY 05/01/16 05/28/16 Meclizine [Antivert] 12.5 mg PO BID 05/23/16 05/28/16 Spironolactone [Aldactone] 25 mg PO DAILY 05/23/16 05/28/16 amLODIPine [Norvasc] 10 mg PO HS 05/23/16 05/28/16 glyBURIDE [Diabeta] 5 mg PO AC-BRKFST 05/23/16 05/28/16 Previous Rx's Medication Instructions Recorded Nitroglycerin Sl Tabs [Nitrostat] 0.4 mg SUBLINGUAL Q5M PRN #25 tab 04/03/15 Aspirin 81 mg PO DAILY #1 chewable 06/05/15 INSULIN LISPRO (humaLOG) [humaLOG 10 unit SQ AC-TID #1 vial 08/29/15 (formulary)] Losartan Potassium [Cozaar] 100 mg PO DAILY #30 tab 08/29/15 Allergies Allergy/AdvReac Type Severity Reaction Status Date / Time No Known Allergies Allergy Verified 05/28/16 15:04 Review of Systems ROS Statement: Those systems with pertinent positive or pertinent negative responses have been documented in the HPI. ROS Other: All systems not noted in ROS Statement are negative. Past Medical History Past Medical History: Chest Pain / Angina, Diabetes Mellitus, Hypertension, Myocardial Infarction ([place]) Additional Past Medical History / Comment(s): OTHER PAST MEDICAL HX INCLUDES:rt cataract, coronary artery disease with Stent to Proximal LAD 03/31/2015, diabetes mellitus, hypertension, hyperlipidemia, hypoglycemic events Last Myocardial Infarction Date:: 03/31/2015 History of Any Multi-Drug Resistant Organisms: None Reported Past Surgical History: Breast Surgery, Heart Catheterization With Stent Additional Past Surgical History / Comment(s): left breast bx-neg, buttocks sx- pt stated:" they told me I had gangrene and had sx to remove", lt cataract Past Anesthesia/Blood Transfusion Reactions: No Reported Reaction Date of Last Stent Placement:: unknown Past Psychological History: No Psychological Hx Reported, Depression Smoking Status: Never smoker Past Alcohol Use History: None Reported Past Drug Use History: None Reported - Past Family History Father Family Medical History: Unable to Obtain Mother Family Medical History: Diabetes Mellitus, Hypertension General Exam - General Exam Comments Initial Comments: Constitutional: Awake alert Appears comfortable Head: Normocephalic atraumatic Eyes: no conjunctival injection No scleral icterus EOMI Neck: No JVD Supple Heart: Regular rate rhythm normal S1-S2 no murmurs Lungs: Clear to auscultation bilaterally No wheezing No rales Abdomen: Soft nondistended nontender Extremities: Non edematous DP pulses intact Radial pulses intact Neuro: A&Ox3 No focal neurologic deficits Psych: Appropriate mood and affect Limitations: no limitations Course Vital Signs 05/28/16 14:40 Temperature 97.2 F L Pulse Rate 64 Respiratory 17 Rate Blood Pressure 118/56 O2 Sat by Pulse 96 Oximetry EKG Findings - EKG Comments: EKG Findings:: EKG showing normal sinus rhythm with a rate of 64. No ST segment changes or T-wave inversions. QTC is 441. Other intervals normal. No ectopy. Medical Decision Making - Medical Decision Making This is a 65-year-old female presents emergency department for low blood sugar. The patient was monitored for a couple of hours and had blood work checked. She does have mild achy eye and was given some fluids for this. Patient ate a sandwich and her blood sugar was monitored. Initially it was in the 60s. After a couple of hours and was in the 110s. The patient was awake and alert throughout her entire ED stay. I spoke with the cold at her primary doctor's office and we agreed that she should stop her glyburide and just beyond the insulin for now. She can keep track of her sugars. She can follow-up with the cold the next couple of days for reevaluation. All questions were answered. - Lab Data Result diagrams: 05/28/16 14:50 05/28/16 14:50 Lab Results 05/28/16 05/28/16 05/28/16 Range/Units 14:44 14:50 14:50 WBC 9.0 (3.8-10.6) k/uL RBC 2.91 L (3.80-5.40) m/uL Hgb 8.8 L (11.4-16.0) gm/dL Hct 27.2 L (34.0-46.0) % MCV 93.5 (80.0-100.0) fL MCH 30.1 (25.0-35.0) pg MCHC 32.2 (31.0-37.0) g/dL RDW 13.0 (11.5-15.5) % Plt Count 268 (150-450) k/uL Neutrophils % 80 % Lymphocytes % 10 % Monocytes % 6 % Eosinophils % 3 % Basophils % 0 % Neutrophils # 7.2 (1.3-7.7) k/uL Lymphocytes # 0.9 L (1.0-4.8) k/uL Monocytes # 0.6 (0-1.0) k/uL Eosinophils # 0.2 (0-0.7) k/uL Basophils # 0.0 (0-0.2) k/uL Sodium 140 (137-145) mmol/L Potassium 5.2 H (3.5-5.1) mmol/L Chloride 111 H (98-107) mmol/L Carbon Dioxide 19 L (22-30) mmol/L Anion Gap 10 mmol/L BUN 24 H (7-17) mg/dL Creatinine 1.49 H (0.52-1.04) mg/dL Est GFR (MDRD) Af Amer 42 (>60 ml/min/1.73 sqM) Est GFR (MDRD) Non-Af 35 (>60 ml/min/1.73 sqM) Glucose 68 L (74-99) mg/dL POC Glucose (mg/dL) 89 (75-99) mg/dL POC Glu Employment Director ID [place], Smiley Calcium 8.6 (8.4-10.2) mg/dL 05/28/16 Range/Units 15:45 WBC (3.8-10.6) k/uL RBC (3.80-5.40) m/uL Hgb (11.4-16.0) gm/dL Hct (34.0-46.0) % MCV (80.0-100.0) fL MCH (25.0-35.0) pg MCHC (31.0-37.0) g/dL RDW (11.5-15.5) % Plt Count (150-450) k/uL Neutrophils % % Lymphocytes % % Monocytes % % Eosinophils % % Basophils % % Neutrophils # (1.3-7.7) k/uL Lymphocytes # (1.0-4.8) k/uL Monocytes # (0-1.0) k/uL Eosinophils # (0-0.7) k/uL Basophils # (0-0.2) k/uL Sodium (137-145) mmol/L Potassium (3.5-5.1) mmol/L Chloride (98-107) mmol/L Carbon Dioxide (22-30) mmol/L Anion Gap mmol/L BUN (7-17) mg/dL Creatinine (0.52-1.04) mg/dL Est GFR (MDRD) Af Amer (>60 ml/min/1.73 sqM) Est GFR (MDRD) Non-Af (>60 ml/min/1.73 sqM) Glucose (74-99) mg/dL POC Glucose (mg/dL) 65 L (75-99) mg/dL POC Glu Employment Director ID Smiley [place]on Calcium (8.4-10.2) mg/dL Disposition Clinical Impression: Hypoglycemia, PEARL (acute kidney injury) Disposition: HOME SELF-CARE Condition: Stable Instructions: Hypoglycemia in a Person with Diabetes (ED) Additional Instructions: Please stop taking your Glyburide. Follow up with [place] in 2 days for re- evaluation. Referrals: Eduin Moore MD [Primary Care Provider] - 1-2 days
[2016-05-28 15:05] LABS: Glucose,Whole Blood 89 mg/dL (75-99)
[2016-05-28 15:06] LABS: Basophils % (A) 0 %; CH 29.9; CHCM 32.1; Eosinophils # (A) 0.2 k/uL (0-0.7); Eosinophils % (A) 3 %; HCT 27.2 % (34.0-46.0); HDW 2.77; HGB 8.8 gm/dL (11.4-16.0); Luc # (Auto) 0.12; Luc % (Auto) 1; Lymphocytes # (A) 0.9 k/uL (1.0-4.8); Lymphocytes % (A) 10 %; MCH 30.1 pg (25.0-35.0); MCHC 32.2 g/dL (31.0-37.0); MCV 93.5 fL (80.0-100.0); Monocytes # (A) 0.6 k/uL (0-1.0); Monocytes % (A) 6 %; Neutrophils # (A) 7.2 k/uL (1.3-7.7); Neutrophils % (A) 80 %; RBC 2.91 m/uL (3.80-5.40); WBC (Perox) 9.63
[2016-05-28 15:20] LABS: Calcium 8.6 mg/dL (8.4-10.2); Potassium 5.2 mmol/L (3.5-5.1)
[2016-05-28] MEDS ORDERED: SODIUM CHLORIDE 0.9% 500 ML IV ONE (15:28)
[2016-05-28 15:50] LABS: Glucose,Whole Blood 65 mg/dL (75-99)
[2016-05-28 17:08] LABS: Glucose,Whole Blood 111 mg/dL (75-99)
[2016-05-28 17:34] VITALS: PULSE 73; TEMP 97.3
[2016-05-28 17:35] VITALS: BP 153/67; RESP 20
[2016-05-28 17:35] LABS: Glucose,Whole Blood 115 mg/dL (75-99)
== END 2016-05-28 17:33 | disposition home or self-care (01) ==
LOC: EC 14:25
DX: E11.649 Type 2 diabetes mellitus with hypoglycemia without coma (principal); N17.9 Acute kidney failure, unspecified; I10 Essential (primary) hypertension; E78.5 Hyperlipidemia, unspecified; I25.10 Atherosclerotic heart disease of native coronary artery without angina pectoris; I25.2 Old myocardial infarction; Z95.5 Presence of coronary angioplasty implant and graft; Z79.899 Other long term (current) drug therapy; Z79.82 Long term (current) use of aspirin; Z79.84 Long term (current) use of oral hypoglycemic drugs; Z79.4 Long term (current) use of insulin
CPT/HCPCS: 36415; 80048; 85025; 93005; 96360; 96361; 99285

== ENCOUNTER → 2016-07-30 | Outpatient (CLI) | payer MEDICARE ==
[2016-07-30 16:26] LABS: Basophils % (A) 1 %; Eosinophils # (A) 0.2 k/uL (0-0.7); Eosinophils % (A) 2 %; HCT 29.1 % (34.0-46.0); HDW 2.93; HGB 8.9 gm/dL (11.4-16.0); Hypochromasia Marked; Luc # (Auto) 0.07; Luc % (Auto) 1; Lymphocytes # (A) 1.3 k/uL (1.0-4.8); Lymphocytes % (A) 20 %; MCH 29.6 pg (25.0-35.0); MCHC 30.5 g/dL (31.0-37.0); MCV 97.2 fL (80.0-100.0); Mean Platelet Volume 6.9; Monocytes # (A) 0.4 k/uL (0-1.0); Monocytes % (A) 6 %; Neutrophils # (A) 4.8 k/uL (1.3-7.7); Neutrophils % (A) 71 %; WBC 6.8 k/uL (3.8-10.6); WBC (Perox) 7.16
[2016-07-30 16:35] LABS: Potassium 4.4 mmol/L (3.5-5.1)
== END | disposition home or self-care (01) ==
LOC: LABPAT 16:08
PROVIDERS: ATTEND Internal Medicine Cardiovascular Disease
DX: R07.9 Chest pain, unspecified (principal)
CPT/HCPCS: 80051; 82565; 84520; 85025

== ENCOUNTER 2016-08-11 15:06 | Inpatient (IN) | payer MEDICARE ==
[2016-08-11] MEDS ORDERED: ASPIRIN 81 MG CHEW PO STA (16:26)
[2016-08-11 16:50] LABS: Basophils % (A) 0 %; CH 28.9; CHCM 30.9; Eosinophils # (A) 0.1 k/uL (0-0.7); Eosinophils % (A) 2 %; HCT 28.4 % (34.0-46.0); HDW 3.11; HGB 8.8 gm/dL (11.4-16.0); Hypochromasia Moderate; Luc # (Auto) 0.05; Luc % (Auto) 1; Lymphocytes % (A) 15 %; MCHC 30.9 g/dL (31.0-37.0); Mean Platelet Volume 7.3; Monocytes # (A) 0.4 k/uL (0-1.0); Monocytes % (A) 5 %; Neutrophils # (A) 5.3 k/uL (1.3-7.7); Neutrophils % (A) 77 %; RBC 3.02 m/uL (3.80-5.40); RDW 14.3 % (11.5-15.5); WBC 6.9 k/uL (3.8-10.6); WBC (Perox) 6.64
[2016-08-11 16:59] LABS: Calcium 9.3 mg/dL (8.4-10.2); Potassium 4.2 mmol/L (3.5-5.1); Total Bilirubin 0.7 mg/dL (0.2-1.3); Total Protein 7.2 g/dL (6.3-8.2)
--- NOTE | 2016-08-11 17:07 | XR ---
EXAMINATION TYPE: XR chest 2V DATE OF EXAM: 08/11/2016 4:58 PM COMPARISON: 08/28/2015 HISTORY: Short of breath TECHNIQUE: Frontal and lateral views of the chest are obtained. FINDINGS: There is some pulmonary interstitial edema. There is slight blunting of costophrenic angle s. There are no hilar masses. Heart is top normal in size. Bony thorax is intact. IMPRESSION: There is new pulmonary interstitial edema and pleural effusions compared to last exam an d could relate to acute heart failure.
[2016-08-11] MEDS ORDERED: ONDANSETRON 4 MG/2 ML VIAL IVP STA (17:26)
[2016-08-11] MEDS ORDERED: MORPHINE SULFATE 4 MG/ML SYRINGE IVP STA (17:26)
--- NOTE | 2016-08-11 17:39 | ED ---
General Adult HPI - General Chief complaint: Abdominal Pain Stated complaint: Abd Pain Time Seen by Provider: 08/11/16 16:08 Source: patient, family, RN notes reviewed, old records reviewed Mode of arrival: wheelchair Limitations: no limitations - History of Present Illness Initial comments: 65-year-old female presenting for abdominal pain. Patient also notes that she has had bilateral lower extremity edema which is worsening over the past week. She states she has had issues with cardiac problems in the past. She was told that she had kidney problems as well. She states that she was told she needs a cardiac catheterization but has been unable to get this recently due to her renal function. She denies any chest pain. She does state that she has had worsening exertional dyspnea over the past week. She denies any nausea vomiting or diarrhea. She denies any fevers or chills. MD Complaint: Abdominal pain Onset/Timin -: week(s) Radiation: non-radiation Consistency: constant Improves with: none Worsens with: none Treatments Prior to Arrival: none - Related Data Home Medications Medication Instructions Recorded Confirmed Citalopram Hydrobromide [CeleXA] 20 mg PO DAILY 03/31/15 08/11/16 Multivitamins, Thera [Multivitamin 1 tab PO DAILY 07/02/15 08/11/16 (formulary)] Atorvastatin [Lipitor] 80 mg PO HS 08/01/15 08/11/16 Carvedilol [Coreg*] 37.5 mg PO BID-W/MEALS 08/01/15 08/11/16 Isosorbide Mononitrate ER [Imdur] 30 mg PO QA 08/01/15 08/11/16 Levothyroxine Sodium [Synthroid] 75 mcg PO DAILY 05/01/16 08/11/16 Meclizine [Antivert] 12.5 mg PO BID 05/23/16 08/11/16 Spironolactone [Aldactone] 12.5 mg PO DAILY 05/23/16 08/11/16 amLODIPine [Norvasc] 10 mg PO HS 05/23/16 08/11/16 Furosemide [Lasix] 40 mg PO DAILY 08/11/16 08/11/16 INSULIN LISPRO (humaLOG) [humaLOG See Protocol SQ AC-TID 08/11/16 08/11/16 (formulary)] Insulin Glargine [Lantus] 20 unit SQ BID 08/11/16 08/11/16 Loratadine [Claritin] 10 mg PO DAILY 08/11/16 08/11/16 Pantoprazole [Protonix] 40 mg PO DAILY 08/11/16 08/11/16 Previous Rx's Medication Instructions Recorded Nitroglycerin Sl Tabs [Nitrostat] 0.4 mg SUBLINGUAL Q5M PRN #25 tab 04/03/15 Aspirin 81 mg PO DAILY #1 chewable 06/05/15 Losartan Potassium [Cozaar] 100 mg PO DAILY #30 tab 08/29/15 Allergies Allergy/AdvReac Type Severity Reaction Status Date / Time No Known Allergies Allergy Verified 08/11/16 16:35 Review of Systems ROS Statement: Those systems with pertinent positive or pertinent negative responses have been documented in the HPI. ROS Other: All systems not noted in ROS Statement are negative. Past Medical History Past Medical History: Chest Pain / Angina, Diabetes Mellitus, Hypertension, Myocardial Infarction ([place]) Additional Past Medical History / Comment(s): OTHER PAST MEDICAL HX INCLUDES:rt cataract, coronary artery disease with Stent to Proximal LAD 03/31/2015, diabetes mellitus, hypertension, hyperlipidemia, hypoglycemic events Last Myocardial Infarction Date:: 03/31/2015 History of Any Multi-Drug Resistant Organisms: None Reported Past Surgical History: Breast Surgery, Heart Catheterization With Stent Additional Past Surgical History / Comment(s): left breast bx-neg, buttocks sx- pt stated:" they told me I had gangrene and had sx to remove", lt cataract Past Anesthesia/Blood Transfusion Reactions: No Reported Reaction Date of Last Stent Placement:: unknown Past Psychological History: Depression Smoking Status: Never smoker Past Alcohol Use History: None Reported Past Drug Use History: None Reported - Past Family History Father Family Medical History: Unable to Obtain Mother Family Medical History: Diabetes Mellitus, Hypertension General Exam - General Exam Comments Initial Comments: General: Awake and Alert. No acute distress. Does not appear acutely ill. Obese. Eyes: ONEAL, EOM intact. No nystagmus. No scleral icterus. HENT: Atraumatic, normocephalic. Mucous membranes moist. Trachea midline. Neck: The neck is supple, there is no tenderness or JVD. Cardiovascular: Regular rate and rhythm. No murmur, rub, or gallop is appreciated. Distal pulses intact. Bilateral 3+ pitting edema. Respiratory: Lungs are clear to auscultation bilaterally. No wheezes, rales, rhonchi. No respiratory distress. Gastrointestinal: Soft, mild diffuse tenderness. No rebound or guarding. Mild distention. No masses or organomegaly noted. No CVA tenderness. Musculoskeletal: No tenderness. Normal ROM. No gross deformity. No strength deficits. Neurological: A&Ox3. CN II-XII grossly intact, There are no obvious motor or sensory deficits. Coordination appears grossly intact. Speech is normal. Skin: Skin is warm and dry and no rashes or lesions are noted. Psychiatric: Cooperative, appropriate mood & affect, normal judgment. Limitations: no limitations Course Vital Signs 08/11/16 08/11/16 15:29 18:21 Temperature 97.6 F 97.2 F L Pulse Rate 56 L 57 L Respiratory 18 18 Rate Blood Pressure 123/59 137/64 O2 Sat by Pulse 97 93 L Oximetry EKG Findings - EKG Comments: EKG Findings:: EKG 17:42. Normal sinus rhythm. Rate 61. Left bundle-branch block. No STEMI. Abnormal EKG. This is a new LBBB and changed from prior EKG from 05/28/2016. Medical Decision Making - Medical Decision Making 65-year-old female presenting for abdominal pain. Initial examination and further discussion with worsening lower extremity edema and exertional dyspnea. Discussed concern for CHF exacerbation. Patient respiratory distress. Chest x-ray with evidence of worsening congestive process. Lab workup with table anemia. BMP with worsening hypernatremia. Evidence of CKD which appears stable. LFTs grossly unremarkable. Lipase negative. BNP is significantly elevated. Initial troponin negative. She given a dose of Lasix for evidence fluid overload. Plan for admission for further management CHF exacerbation as well as further cardiac workup and rule out. Discussed with Dr. Capone who is agreeable to admission. - Lab Data Result diagrams: 08/11/16 16:39 08/11/16 16:39 Lab Results 08/11/16 08/11/16 08/11/16 Range/Units 16:39 16:39 16:39 WBC 6.9 (3.8-10.6) k/uL RBC 3.02 L (3.80-5.40) m/uL Hgb 8.8 L (11.4-16.0) gm/dL Hct 28.4 L (34.0-46.0) % MCV 94.0 (80.0-100.0) fL MCH 29.0 (25.0-35.0) pg MCHC 30.9 L (31.0-37.0) g/dL RDW 14.3 (11.5-15.5) % Plt Count 248 (150-450) k/uL Neutrophils % 77 % Lymphocytes % 15 % Monocytes % 5 % Eosinophils % 2 % Basophils % 0 % Neutrophils # 5.3 (1.3-7.7) k/uL Lymphocytes # 1.0 (1.0-4.8) k/uL Monocytes # 0.4 (0-1.0) k/uL Eosinophils # 0.1 (0-0.7) k/uL Basophils # 0.0 (0-0.2) k/uL Hypochromasia Moderate Sodium 149 H (137-145) mmol/L Potassium 4.2 (3.5-5.1) mmol/L Chloride 114 H (98-107) mmol/L Carbon Dioxide 24 (22-30) mmol/L Anion Gap 11 mmol/L BUN 37 H (7-17) mg/dL Creatinine 1.50 H (0.52-1.04) mg/dL Est GFR (MDRD) Af Amer 42 (>60 ml/min/1.73 sqM) Est GFR (MDRD) Non-Af 35 (>60 ml/min/1.73 sqM) Glucose 68 L (74-99) mg/dL Calcium 9.3 (8.4-10.2) mg/dL Total Bilirubin 0.7 (0.2-1.3) mg/dL AST 17 (14-36) U/L ALT 34 (9-52) U/L Alkaline Phosphatase 72 (38-126) U/L Troponin I (0.000-0.034) ng/mL NT-Pro-B Natriuret Pep 1860 pg/mL Total Protein 7.2 (6.3-8.2) g/dL Albumin 3.8 (3.5-5.0) g/dL Lipase 49 (23-300) U/L 08/11/16 Range/Units 16:39 WBC (3.8-10.6) k/uL RBC (3.80-5.40) m/uL Hgb (11.4-16.0) gm/dL Hct (34.0-46.0) % MCV (80.0-100.0) fL MCH (25.0-35.0) pg MCHC (31.0-37.0) g/dL RDW (11.5-15.5) % Plt Count (150-450) k/uL Neutrophils % % Lymphocytes % % Monocytes % % Eosinophils % % Basophils % % Neutrophils # (1.3-7.7) k/uL Lymphocytes # (1.0-4.8) k/uL Monocytes # (0-1.0) k/uL Eosinophils # (0-0.7) k/uL Basophils # (0-0.2) k/uL Hypochromasia Sodium (137-145) mmol/L Potassium (3.5-5.1) mmol/L Chloride (98-107) mmol/L Carbon Dioxide (22-30) mmol/L Anion Gap mmol/L BUN (7-17) mg/dL Creatinine (0.52-1.04) mg/dL Est GFR (MDRD) Af Amer (>60 ml/min/1.73 sqM) Est GFR (MDRD) Non-Af (>60 ml/min/1.73 sqM) Glucose (74-99) mg/dL Calcium (8.4-10.2) mg/dL Total Bilirubin (0.2-1.3) mg/dL AST (14-36) U/L ALT (9-52) U/L Alkaline Phosphatase (38-126) U/L Troponin I <0.012 (0.000-0.034) ng/mL NT-Pro-B Natriuret Pep pg/mL Total Protein (6.3-8.2) g/dL Albumin (3.5-5.0) g/dL Lipase (23-300) U/L - EKG Data -: EKG Interpreted by Me EKG shows normal: sinus rhythm Rate: normal When compared to previous EKG there are: changes noted (new LBBB) - Radiology Data Radiology results: report reviewed, image reviewed Disposition Clinical Impression: Abdominal pain, CHF exacerbation, Lower extremity edema, Anemia, CKD (chronic kidney disease), New onset left bundle branch block (LBBB), Hypernatremia Disposition: ADMITTED IP TO THIS HOSP Condition: Stable Decision to Admit Reason: Admit from [facility]
[2016-08-11] MEDS ORDERED: FUROSEMIDE 10 MG/ML 4 ML VIAL IV STA (17:54)
[2016-08-11] MEDS ORDERED: NITROGLYCERIN SL TABS 0.4 MG TAB SUBLINGUAL PRN (21:51)
[2016-08-11] MEDS: CARVEDILOL 12.5 MG TAB PO SCH (23:07)
[2016-08-11] MEDS: amLODIPine 10 MG TAB PO SCH (23:07)
[2016-08-11] MEDS: ATORVASTATIN 80 MG TAB PO SCH (23:07)
[2016-08-11] MEDS: PANTOPRAZOLE 40 MG TABLET PO SCH (23:08)
[2016-08-11 23:12] LABS: Glucose,Whole Blood 58 mg/dL (75-99)
[2016-08-11] MEDS: INSULIN GLARGINE 100 UNIT/ML 10 ML VIAL SQ SCH (23:13)
[2016-08-11 23:29] LABS: Glucose,Whole Blood 79 mg/dL (75-99)
[2016-08-12] MEDS: HEPARIN SODIUM,PORCINE 5,000 UNIT/ML 1 ML VIAL SQ SCH ×4 (03:00→23:43)
[2016-08-12 03:06] LABS: Glucose,Whole Blood 129 mg/dL (75-99)
[2016-08-12 06:00] LABS: Glucose,Whole Blood 120 mg/dL (75-99)
[2016-08-12] MEDS: CARVEDILOL 12.5 MG TAB PO SCH ×2 (06:08→17:50)
[2016-08-12] MEDS: LEVOTHYROXINE 75 MCG TAB PO SCH (06:08)
[2016-08-12] MEDS: FUROSEMIDE 10 MG/ML 10 ML VIAL IV SCH ×3 (06:08→21:32)
[2016-08-12] MEDS: PANTOPRAZOLE 40 MG TABLET PO SCH (06:08)
--- NOTE | 2016-08-12 07:12 | HP ---
DATE OF ADMISSION: 08/11/2016 PRESENTING COMPLAINT: Chest pain, shortness of breath. HISTORY OF PRESENTING COMPLAINT: This is a 65-year-old patient with rather extensive medical history. Patient was here in April of this year. Patient's chronic stable medical conditions include hypertensive heart disease, moderate secondary pulmonary hypertension, moderate mitral regurgitation, coronary artery disease with stent in December 2014, hyperlipidemia, diabetes mellitus type 2, obesity and depression. Patient presented with one day history of chest pressure, going across the chest on and off lasting for a good 12 hours, associated with shortness of breath, some dizziness, tired. Patient has got some edema. Denies any obvious orthopnea. Patient does get short of breath especially with exertion, admitted for the same. Patient has been having significant edema. Patient's and son at the bedside. REVIEW OF SYSTEMS: CONSTITUTIONAL: Tired. HEENT: None. RESPIRATORY: As above. CARDIOVASCULAR: As above. GASTROINTESTINAL: None. GENITOURINARY: None. MUSCULOSKELETAL: None. DERMATOLOGICAL: None. HEMATOLOGICAL: None. LYMPHATIC: None. PSYCHIATRY: None. NEUROLOGICAL: None. Past medical history of congestive heart failure from diastolic dysfunction, EF 55%, hypertensive heart disease with concentric left ventricular hypertrophy, moderate secondary pulmonary hypertension, moderate mitral regurgitation, coronary artery disease with stent to the LAD in December 2014, hyperlipidemia, diabetes mellitus type 2, morbid obesity, depression. PAST SURGICAL HISTORY: Breast surgery. cardiac cath with stent, left breast biopsy negative, buttocks surgery for gangrene. SOCIAL HISTORY: . No smoking. No alcohol. FAMILY HISTORY: Reviewed with the patient, noncontributory on presentation. HOME MEDICATIONS: 1. Norvasc 10 mg p.o. q.h.s. 2. Aldactone 12.5 p.o. daily. 3. Protonix 40 mg p.o. daily. 4. Nitrostat 0.4 sublingual q.5 p.r.n. 5. Multivitamin 1 tablet p.o. daily. 6. Antivert 12.5 p.o. b.i.d. 7. Cozaar 100 mg p.o. daily. 8. Claritin 10 mg p.o. daily. 9. Synthroid 75 mcg p.o. daily. 10. Imdur ER 30 mg p.o. daily. 11. Lantus 20 units subcu b.i.d. 12. Humalog per protocol. 13. Lasix 40 mg p.o. daily. 14. Celexa 20 mg p.o. daily. 15. Coreg 37.5 mg p.o. b.i.d. 16. Lipitor 80 mg q.h.s. 17. Aspirin 81 mg a day. ALLERGIES: None. On examination, temperature 98.8, pulse 71, respiration 18, blood pressure ( ), pulse ox 96% on room air GENERAL APPEARANCE: Well built, BMI of 43.1, lying in bed, tired appearing. EYES: Pupils equal. Conjunctivae normal. HEENT: Oral cavity normal. NECK: JVD unable to assess. Mass not palpable. RESPIRATORY: Effort increased. LUNGS: Diminished breath sounds. CARDIOVASCULAR: First and second sounds normal. Edema present. ABDOMEN: Large, soft. Liver and spleen not palpable. LYMPHATIC: No lymph nodes palpable in neck or axillae. PSYCHIATRY: Alert and oriented x3. Mood and affect normal. NEUROLOGICAL: Pupils equal. Cranial nerves grossly intact. Power and sensation grossly intact. INVESTIGATIONS: White count 6.9, hemoglobin 8.8, platelets 248. Potassium 4.2. BUN 37, creatinine 1.50. Patient's BUN and creatinine on 07/30/2016 was 47/1.69 and patient's creatinine on 05/05/16 was 1.10. Troponin negative. EKG shows left bundle brunch block. Chest x-ray results show pulmonary interstitial edema. ASSESSMENT: 1. Acute on chronic congestive heart failure exacerbation from diastolic dysfunction; ejection fraction 55% from underlying coronary artery disease. 2. Hypertensive heart disease with concentric left ventricular hypertrophy. 3. Moderate secondary pulmonary hypertension from underlying congestive heart failure. 4. Moderate mitral regurgitation, nonrheumatic. 5. Coronary artery disease with stent to the LAD in December 2014. 6. Hyperlipidemia. 7. Diabetes mellitus type 2, chronically on insulin. 8. Morbid obesity, body mass index more than 35. 9. Depression, not otherwise specified. 10. Chronic kidney disease, stage III, probably from diabetic nephropathy and hypertensive nephrosclerosis. PLAN: Patient's home medications will be resumed. Patient is put on IV Lasix. Cardiology is consulted. Care was discussed with the patient and patient's at the bedside. Follow electrolytes closely.
[2016-08-12 07:31] LABS: Appearance,Urine Cloudy (Clear); Bacteria,Urine Moderate /hpf; Bilirubin,Urine Negative (Negative); Glucose,Urine (UA) Negative (Negative); Ketones,Urine Negative (Negative); Leukocyte Esterase,Urine Large (Negative); Mucus,Urine Rare /hpf; Nitrite,Urine Negative (Negative); Particle Count 17722; Protein,Urine Negative (Negative); RBC,Urine 1 /hpf (0-5); Specific Gravity,Urine 1.007 (1.001-1.035); Squamous Epithelial Cell,Urine 4 /hpf (0-4); UA Billing (MACRO vs. MICRO) MICRO; Urobilinogen,Urine <2.0 mg/dL (<2.0); WBC,Urine 35 /hpf (0-5)
[2016-08-12] MEDS: ISOSORBIDE MONONITRATE ER 30 MG TAB.ER.24H PO SCH (08:33)
[2016-08-12] MEDS: ASPIRIN 81 MG CHEW PO SCH (08:33)
[2016-08-12] MEDS: CITALOPRAM HYDROBROMIDE 20 MG TAB PO SCH (08:33)
[2016-08-12] MEDS: INSULIN GLARGINE 100 UNIT/ML 10 ML VIAL SQ SCH ×2 (08:37→21:33)
[2016-08-12] MEDS ORDERED: ASPIRIN 325 MG TAB PO SCH (09:00)
[2016-08-12] MEDS ORDERED: LORATADINE 10 MG TAB PO SCH (09:00)
[2016-08-12 09:01] LABS: CHCM 30.8; HCT 26.5 % (34.0-46.0); HDW 3.21; HGB 8.3 gm/dL (11.4-16.0); Hypochromasia Marked; MCH 29.8 pg (25.0-35.0); MCHC 31.4 g/dL (31.0-37.0); MCV 94.8 fL (80.0-100.0); Mean Platelet Volume 6.9; RBC 2.79 m/uL (3.80-5.40); WBC 6.1 k/uL (3.8-10.6)
--- NOTE | 2016-08-12 09:15 | US ---
EXAMINATION TYPE: US kidneys/renal and bladder DATE OF EXAM: 08/12/2016 7:51 AM COMPARISON: CT abdomen pelvis 28 Aug 2015 CLINICAL HISTORY: renal failure. EXAM MEASUREMENTS: Right Kidney: 13.1 x 5.3 x 4.7 cm Left Kidney: 12.6 x 6.2 x 5.3 cm Right Kidney: Cortical medullary differentiation is maintained Left Kidney: Cortical medullary differentiation is maintained, lobulated contour. Bladder: appears wnl Bilateral Jets seen: yes There is no evidence for hydronephrosis at this point in time. No nephrolithiasis is seen. No juanito s are identified. The urinary bladder is anechoic. Bilateral ureteral jets are seen. IMPRESSION: Renal sizes maintained, morphology within normal limits.
[2016-08-12 09:55] LABS: Calcium 9.1 mg/dL (8.4-10.2); Potassium 4.5 mmol/L (3.5-5.1)
--- NOTE | 2016-08-12 10:42 | P.CRDCN ---
History of Present Illness Consult date: 08/12/16 Requesting physician: Johnny Capone Consult reason: shortness of breath Chief complaint: Abdominal pain, shortness of breath, leg swelling History of present illness: This is a 65-year-old female with known history of diabetes, hypertension, hyperlipidemia, prior stenting of the LAD in 2014, follows with Dr. Wayne in the office. She states that she recently seen Dr. Nagy in the office approximately one week ago, with symptoms of exertional shortness of breath significant bilateral leg swelling and chest discomfort suggestive of unstable angina. Patient was apparently told by Dr. Nagy that she require cardiac catheterization, he had outpatient labs drawn which revealed elevated creatinine. The patient was told that the cath would be deferred because of the abnormal creatinine. She presents to the hospital on this occasion with symptoms of shortness of breath, both exertional and at rest, PND and orthopnea , as well as left sided abdominal pain. Chest x-ray on admission revealed new a pulmonary interstitial edema and pleural effusions as compared with prior exam. EKG on admission revealed a sinus bradycardia with a left bundle-branch block pattern. Ultrasound of the kidneys and bladder were performed which did not reveal any significant abnormality. Blood Pressure on arrival 122/56, heart rate in the 50s, 97% on room air. Hemoglobin on admission 8.8, 8.3 this morning, platelet count 216, potassium 4.5, BUN 39, creatinine 1.7 this morning. Troponin of 0.012. BNP level 1860. Positive UTI. The patient was initiated on IV Lasix in the emergency room, time of my examination this morning , patient is quite sleepy, continues to complain of some left-sided abdominal discomfort as well as shortness of breath. Denies any chest pain at present. Past Medical History Past Medical History: Chest Pain / Angina, Diabetes Mellitus, Hypertension, Myocardial Infarction ([place]) Additional Past Medical History / Comment(s): OTHER PAST MEDICAL HX INCLUDES:rt cataract, coronary artery disease with Stent to Proximal LAD 03/31/2015, diabetes mellitus, hypertension, hyperlipidemia, hypoglycemic events Last Myocardial Infarction Date:: 03/31/2015 History of Any Multi-Drug Resistant Organisms: None Reported Past Surgical History: Breast Surgery, Heart Catheterization With Stent Additional Past Surgical History / Comment(s): left breast bx-neg, buttocks sx- pt stated:" they told me I had gangrene and had sx to remove", lt cataract Past Anesthesia/Blood Transfusion Reactions: No Reported Reaction Date of Last Stent Placement:: unknown Past Psychological History: Depression Smoking Status: Never smoker Past Alcohol Use History: None Reported Past Drug Use History: None Reported - Past Family History Father Family Medical History: Unable to Obtain Mother Family Medical History: Diabetes Mellitus, Hypertension Medications and Allergies Home Medications Medication Instructions Recorded Confirmed Type Citalopram Hydrobromide [CeleXA] 20 mg PO DAILY 03/31/15 08/11/16 History Multivitamins, Thera [Multivitamin 1 tab PO DAILY 07/02/15 08/11/16 History (formulary)] Atorvastatin [Lipitor] 80 mg PO HS 08/01/15 08/11/16 History Carvedilol [Coreg*] 37.5 mg PO BID-W/MEALS 08/01/15 08/11/16 History Isosorbide Mononitrate ER [Imdur] 30 mg PO QAM 08/01/15 08/11/16 History Levothyroxine Sodium [Synthroid] 75 mcg PO DAILY 05/01/16 08/11/16 History Meclizine [Antivert] 12.5 mg PO BID 05/23/16 08/11/16 History Spironolactone [Aldactone] 12.5 mg PO DAILY 05/23/16 08/11/16 History amLODIPine [Norvasc] 10 mg PO HS 05/23/16 08/11/16 History Furosemide [Lasix] 40 mg PO DAILY 08/11/16 08/11/16 History INSULIN LISPRO (humaLOG) [humaLOG See Protocol SQ AC-TID 08/11/16 08/11/16 History (formulary)] Insulin Glargine [Lantus] 20 unit SQ BID 08/11/16 08/11/16 History Loratadine [Claritin] 10 mg PO DAILY 08/11/16 08/11/16 History Pantoprazole [Protonix] 40 mg PO DAILY 08/11/16 08/11/16 History Allergies Allergy/AdvReac Type Severity Reaction Status Date / Time No Known Allergies Allergy Verified 08/11/16 16:35 Physical Exam Vitals: Vital Signs Temp Pulse Pulse Resp BP BP Pulse Ox 08/12/16 08:00 97.2 F L 54 L 120/68 99 05/09/17 04:00 97.4 F L 54 L 16 128/60 98 08/12/16 00:00 97.5 F L 67 17 125/61 99 08/11/16 18:21 97.2 F L 57 L 18 137/64 93 L Intake and Output 08/11/16 08/12/16 08/12/16 22:59 06:59 14:59 Intake Total 480 480 120 Output Total 300 Balance 180 480 120 Intake: Oral 480 480 120 Output: Urine 300 Other: Voiding Method Toilet # Voids 1 0 Weight 103.419 kg 103.5 kg PHYSICAL EXAMINATION: HEENT: Head is atraumatic, normocephalic. Pupils equal, round. Neck is supple. There is elevated jugular venous pressure. HEART EXAMINATION: Heart S1 and S2 systolic murmur is heard CHEST EXAMINATION: Lungs reveal diminished air entry to bilateral bases. ABDOMEN: Soft,obese, left upper quadrant tenderness noted. Bowel sounds are heard. No organomegaly noted. EXTREMITIES: 2+ peripheral pulses with trace evidence of peripheral edema and no calf tenderness noted. NEUROLOGIC patient is awake, alert and oriented -3. . Results 08/12/16 08:30 08/12/16 08:30 CBC 08/12/16 Range/Units 08:30 WBC 6.1 (3.8-10.6) k/uL RBC 2.79 L (3.80-5.40) m/uL Hgb 8.3 L (11.4-16.0) gm/dL Hct 26.5 L (34.0-46.0) % Plt Count 216 (150-450) k/uL Comprehensive Metabolic Panel 08/12/16 Range/Units 08:30 Sodium 145 (137-145) mmol/L Potassium 4.5 (3.5-5.1) mmol/L Chloride 112 H (98-107) mmol/L Carbon Dioxide 23 (22-30) mmol/L BUN 39 H (7-17) mg/dL Creatinine 1.75 H (0.52-1.04) mg/dL Glucose 109 H (74-99) mg/dL Calcium 9.1 (8.4-10.2) mg/dL Current Medications Generic Name Dose Route Start Last Admin Trade Name Freq PRN Reason Stop Dose Admin Amlodipine Besylate 10 mg 08/11/16 22:00 08/11/16 23:07 Norvasc PO 10 mg HS EVELIA Administration Aspirin 81 mg 08/12/16 09:00 08/12/16 08:33 Aspirin PO 81 mg DAILY EVELIA Administration Atorvastatin Calcium 80 mg 08/11/16 22:00 08/11/16 23:07 Lipitor PO 80 mg HS EVELIA Administration Carvedilol 37.5 mg 08/11/16 22:00 08/12/16 06:08 Coreg PO 37.5 mg BID-W/MEALS EVELIA Administration Citalopram Hydrobromide 20 mg 08/12/16 09:00 08/12/16 08:33 Celexa PO 20 mg DAILY EVELIA Administration Furosemide 60 mg 08/12/16 06:00 08/12/16 06:08 Lasix IV 60 mg Q8H [facility] Administration Heparin Sodium (Porcine) 5,000 unit 08/12/16 00:00 08/12/16 08:33 Heparin SQ 5,000 unit Q8HR EVELIA Administration Insulin Glargine 20 unit 08/11/16 22:00 08/12/16 08:37 Lantus SQ 20 unit BID EVELIA Administration Isosorbide Mononitrate 30 mg 08/12/16 09:00 08/12/16 08:33 Imdur PO 30 mg QAM [facility] Administration Levothyroxine Sodium 75 mcg 08/12/16 06:30 08/12/16 06:08 Synthroid PO 75 mcg DAILY@0630 [facility] Administration Nitroglycerin 0.4 mg 08/11/16 21:51 Nitrostat SUBLINGUAL Q5M PRN Chest Pain Pantoprazole Sodium 40 mg 08/11/16 22:00 08/12/16 06:08 Protonix PO 40 mg AC-BRKFST EVELIA Administration Intake and Output 08/11/16 08/12/16 08/12/16 22:59 06:59 14:59 Intake Total 480 480 120 Output Total 300 Balance 180 480 120 Intake: Oral 480 480 120 Output: Urine 300 Other: Voiding Method Toilet # Voids 1 0 Weight 103.419 kg 103.5 kg 08/12/16 08:30 08/12/16 08:30 EKG Interpretations (text) Assessment and plan #1 congestive heart failure, likely diastolic in nature. #2 left upper quadrant abdominal discomfort #3 acute on chronic renal failure #4 chronic anemia #5 known history of coronary artery disease with prior stenting of the LAD in 2015. Patient has had symptoms recently suggestive of unstable angina, was recommended by Dr. Nagy to undergo cardiac catheterization which was deferred because of abnormal renal function. #6 hypertension #7 hyperlipidemia #8 diabetes Plan We will obtain a repeat echocardiogram with Doppler study. Recommend to continue current dose of IV Lasix, monitor intake and output along with daily weights closely. Daily lytes BUN and creatinine. We will also request a consultation with nephrology regarding the patient's abnormal renal function. On review of prior records, patient has been noted to have abnormal renal function in the past, however her baseline appears to be 0.8. Further recommendations to follow. DNP note has been reviewed, I agree with a documented findings and plan of care. Patient was seen and examined.
[2016-08-12 12:03] LABS: Glucose,Whole Blood 156 mg/dL (75-99)
--- NOTE | 2016-08-12 13:03 | ECHOF ---
Referral Reason:chf MEASUREMENTS -------- HEIGHT: 154.9 cm WEIGHT: 103.4 kg BP: 120/68 RVIDd: 3.7 cm (< 3.3) IVSd: 1.2 cm (0.6 - 1.1) LVIDd: 5.3 cm (3.9 - 5.3) LVPWd: 1.3 cm (0.6 - 1.1) IVSs: 1.6 cm LVIDs: 3.9 cm LVPWs: 1.8 cm LAESV Index (A-L): 28.79 ml/m MV E Ashwin: 1.14 m/s MV DecT: 231 ms MV A Ashwin: 0.79 m/s MV E/A Ratio: 1.44 RAP: 15.00 mmHg RVSP: 52.93 mmHg FINDINGS -------- Atrial fibrillation. This was a technically adequate study. There is mild concentric left ventricular hypertrophy. Overall left ventricular systolic function is normal with, an EF between 55 - 60 %. The right ventricle is normal in size and function. Normal LA size by volume 22+/-6 ml/m2. The right atrium is normal in size. Aortic valve is trileaflet and is mildly thickened. Trace to mild aortic regurgitation. There is no evidence of aortic stenosis. The mitral valve leaflets are mildly thickened. [id number] mitral regurgitation is present. Mild tricuspid regurgitation present. There is mild to moderate pulmonary hypertension. The right ventricular systolic pressure, as measured by Doppler, is Overestimated. The pulmonic valve was not well visualized. The aortic root size is normal. The inferior vena cava is dilated with no significant inspiratory collapse which is consistent estimated right atrial pressure of >20 mmHg. There is no pericardial effusion. CONCLUSIONS -------- 1. Atrial fibrillation. 2. The aortic root size is normal. 3. The inferior vena cava is dilated with no significant inspiratory collapse which is consistent estimated right atrial pressure of >20 mmHg. 4. There is no pericardial effusion. 5. There is mild concentric left ventricular hypertrophy. 6. Aortic valve is trileaflet and is mildly thickened. 7. Trace to mild aortic regurgitation. 8. The mitral valve leaflets are mildly thickened. 9. [id number] mitral regurgitation is present. 10. Mild tricuspid regurgitation present. 11. There is mild to moderate pulmonary hypertension. 12. The right ventricular systolic pressure, as measured by Doppler, is 52.93mmHg. PULL THROUGH HOOKER: Dutch Bhardwaj RDCS
--- NOTE | 2016-08-12 13:10 | CONS ---
DATE OF CONSULTATION: 08/12/16 REASON FOR CONSULTATION: Renal failure. HISTORY OF PRESENT ILLNESS: Patient is a 65-year-old female who was admitted to the hospital with complaints of weakness, not doing well. She also had chest pain radiating to her left arm according to the family. The patient is also complaining of abdominal pain. No fever, chills. No cough. No diarrhea, nausea or vomiting. There is no prior history of kidney diseases. Her serum creatinine was at 1.5 mg/dL on initial admission and today it is at 1.75. Review of her previous labs show serum creatinine ranging at about 1.1 on 05/05/2016. She did have acute kidney injury at that time in April as well. Blood pressure has not been significantly low staying mainly around 120s for systolic. There is no history of use of NSAIDs prior to admission. Currently patient is not on any IV fluids. She is maintained on Lasix. Patient had been complaining of increased edema in her lower extremities which has been going on for about 2 to 3 weeks prior to admission. There was no significant shortness of breath noted. PAST MEDICAL HISTORY: Significant for hypertension, obesity, type 2 diabetes, hyperlipidemia, coronary artery disease, moderate pulmonary hypertension, diastolic dysfunction EF 55%. PAST SURGICAL HISTORY: Breast surgery, cardiac cath with stent, left breast biopsy, surgery for gangrene of the buttocks. SOCIAL HISTORY: Negative for smoking, drug abuse or alcohol abuse. Medications at home prior to admission included Norvasc, Aldactone, Protonix, Nitrostat, Antivert, DuoNeb, Antivert, Cozaar, Claritin, Synthroid, Imdur, insulin, Lasix, Celexa, Coreg, Lipitor, aspirin. ALLERGIES: None. REVIEW OF SYSTEMS: As per HPI. Other systems negative. On examination, the patient is comfortable, awake. She is not in any acute distress. Blood pressure is 128/60, heart rate 54 per minute. She is afebrile. EXAMINATION OF THE HEART: S1 and S2. EXAMINATION OF THE LUNGS: Bilateral breath sounds are heard. Decreased breath sounds at the bases. ABDOMEN: Soft, morbidly obese. Examination of the lower extremities shows edema 1+ bilaterally. PEDIATRIC LPN exam is grossly intact. Patient is moving all 4 extremities. LABS: We have an ultrasound shows right kidney. 13.1, left kidney 12.6. No ( ) or stones are noted at this time. UA showed large leukocyte esterase, WBCs of 35, RBC 1, hyaline casts 49, no blood or protein noted. Sodium 145, potassium 4.5, BUN 39, serum creatinine 1.75. Hemoglobin 8.3 g/dL. ASSESSMENT: 1. Acute kidney injury, most likely acute tubular necrosis, currently nonoliguric. Continue to hold off on angiotensin receptor blockers for now. Blood pressure is not significantly elevated. She is volume overloaded and we need to diurese her. There is history of moderate pulmonary hypertension noted on previous echocardiogram, which will definitely cause some chronic lower extremity edema. There is no evidence of obstructive uropathy noted on the ultrasound. Currently there are no nephrotoxic agents on board. 2. Pyuria, rule out urinary tract infection. 3. Increased lower extremity edema, currently maintained on Lasix 60 IV q.8, which we can continue for now. 4. Dyslipidemia. 5. Hypertension, currently fairly well controlled. PLAN: Repeat labs in the a.m. Continue current dose of Lasix. Decrease Lasix tomorrow depending on her volume status and hold off on the angiotensin receptor blockers for now. Thank you for this consultation. Will continue to follow the patient with you during her hospitalization. ZACHERY
--- NOTE | 2016-08-12 14:36 | PN ---
DATE OF SERVICE: 08/12/2016 PRESENTING COMPLAINT: Chest pain, shortness of breath. INTERVAL HISTORY: This is a 65-year-old female with an extensive medical history. Patient presented with a one-day history of chest pressure going across his chest and lasting a good 12 hours associated with shortness of breath. Some dizziness and feelings of tiredness. Patient complains of shortness of breath, especially with exertion. Today, patient's remains at the bedside. Patient is awake and able to answer questions, no distress noted. Patient states that she feels some better than she when she was admitted yesterday. Review of systems done for constitutional, cardiovascular, gastrointestinal, pulmonary, with relevant findings as above. CURRENT MEDICATIONS: Norvasc, aspirin, Lipitor, Coreg, Celexa, Lasix, heparin, Protonix, Imdur, Synthroid. PHYSICAL EXAM: VITAL SIGNS: Temperature is 97.2, pulse 54, respiratory rate 16, blood pressure 120/68, oxygen saturation 99% on 2 L nasal cannula. EYES: Pupils equal. Conjunctivae normal. NECK: JVD not raised. Mass not palpable. Lungs diminished bilaterally. Some expiratory wheezing noted. Respiratory effort normal, unlabored. Cardiovascular, S1 and S2 normal, +2 edema to bilateral lower extremities. ABDOMEN: Soft, tender to left upper quadrant. Liver and spleen not palpable. PSYCHIATRIC: Alert and oriented x3. Mood and affect are normal. INVESTIGATIONS: Hemoglobin 8.3, BUN 39, creatinine 1.75. UA positive for squamous epithelial cells, positive for leukocyte esterase, positive for bacteria. Abdominal ultrasound, no evidence of hydronephrosis at this point. No nephrolithiasis seen. No mass is identified. Urinary bladder is anechoic, bilateral ureteral jets are seen. Overall impression, renal size maintained, morphology within normal limits ASSESSMENT: 1. Acute on chronic congestive heart failure exacerbation from diastolic dysfunction. Ejection fraction 55% from underlying coronary artery disease. 2. Hypertensive heart disease with concentric left ventricular hypertrophy. 3. Moderate secondary pulmonary hypertension from underlying congestive heart failure. 4. Moderate mitral regurgitation, nonrheumatic. 5. Coronary artery disease with stent to the left anterior descending artery in December of 2014. 6. Hyperlipidemia. 7. Diabetes mellitus type 2, chronically on insulin. 8. Morbid obesity; body mass index of more than 35. 9. Depression, not otherwise specified. 10. Chronic kidney disease stage III, probably from diabetic nephropathy and hypertensive nephrosclerosis. Awaiting Cardiology consultation and their recommendations. Patient continues to have abdominal pain for which we will provide medication as warranted. Will follow electrolytes closely. Plan of care was discussed with the patient and the patient's at the bedside. Patient was seen and examined by nurse practitioner, Linda Pride and all elements of the case discussed with attending, Dr. Capone.
[2016-08-12 14:41] VITALS: BMI 43.1
[2016-08-12 17:21] LABS: Glucose,Whole Blood 224 mg/dL (75-99)
[2016-08-12] MEDS: INSULIN LISPRO (humaLOG) 300 UNIT/3 ML VIAL SQ SCH ×2 (17:56→21:33)
[2016-08-12 21:10] LABS: Glucose,Whole Blood 119 mg/dL (75-99)
[2016-08-12] MEDS: amLODIPine 10 MG TAB PO SCH (21:32)
[2016-08-12] MEDS: ATORVASTATIN 80 MG TAB PO SCH (21:32)
[2016-08-12] MEDS: CEFUROXIME 250 MG TAB PO SCH (23:43)
[2016-08-13 01:57] LABS: Glucose,Whole Blood 115 mg/dL (75-99)
[2016-08-13 06:34] LABS: Glucose,Whole Blood 120 mg/dL (75-99)
[2016-08-13] MEDS ORDERED: ACETAMINOPHEN TAB 500 MG TAB PO PRN (06:42)
[2016-08-13] MEDS: INSULIN LISPRO (humaLOG) 300 UNIT/3 ML VIAL SQ SCH ×4 (06:49→22:09)
[2016-08-13] MEDS: LEVOTHYROXINE 75 MCG TAB PO SCH (06:50)
[2016-08-13] MEDS: CARVEDILOL 12.5 MG TAB PO SCH ×2 (06:50→18:05)
[2016-08-13] MEDS: PANTOPRAZOLE 40 MG TABLET PO SCH (06:50)
[2016-08-13] MEDS: FUROSEMIDE 10 MG/ML 10 ML VIAL IV SCH (06:50)
--- NOTE | 2016-08-13 08:03 | PN ---
DATE OF SERVICE: 08/12/2016 ATTENDING NOTE: This patient was seen and examined by me earlier today. I reviewed the notes of my nurse practitioner. Shannen. I agreed with the same except as below. This is a patient who presented with chest pain, CHF exacerbation. A 2-D echo shows preserved LV function, getting IV Lasix, feels a bit better, tired. is at the bedside. Edema is still present. ON EXAMINATION: LUNGS: Decreased breath sounds. CARDIOVASCULAR: First and second sounds normal. NECK: JVD is raised. INVESTIGATIONS: Hemoglobin 8.3. BUN 39, creatinine 1.75. UA noted to have leukocyte esterase and WBC. ASSESSMENT: 1. Acute on chronic congestive heart failure exacerbation from diastolic dysfunction, ejection fraction 55% from underlying coronary artery disease. 2. Hypertensive heart disease, concentric left ventricular hypertrophy. 3. Moderate secondary pulmonary hypertension from underlying congestive heart failure. 4. Moderate mitral regurgitation, nonrheumatic. 5. Coronary artery disease with stent to the left anterior descending artery in December 2014. 6. Hyperlipidemia. 7. Diabetes mellitus type 2, chronically on insulin. 8. Morbid obesity, body mass index more than 35. 9. Depression, not otherwise specified. 10. Acute renal failure, probably acute tubular necrosis as per nephrology. I am not sure now if there is a chronic kidney disease element. 11. Possible urinary tract infection. PLAN: At this point, continue with diuresis. Keep a close eye on patient's electrolytes. Will add Ceftin for the UTI. Care was discussed with the patient and at the bedside. Will follow.
[2016-08-13] MEDS: CEFUROXIME 250 MG TAB PO SCH ×2 (09:20→22:09)
[2016-08-13] MEDS: CITALOPRAM HYDROBROMIDE 20 MG TAB PO SCH (09:21)
[2016-08-13] MEDS: HEPARIN SODIUM,PORCINE 5,000 UNIT/ML 1 ML VIAL SQ SCH ×3 (09:21→23:38)
[2016-08-13] MEDS: ISOSORBIDE MONONITRATE ER 30 MG TAB.ER.24H PO SCH (09:21)
[2016-08-13] MEDS: ASPIRIN 81 MG CHEW PO SCH (09:21)
[2016-08-13] MEDS: INSULIN GLARGINE 100 UNIT/ML 10 ML VIAL SQ SCH ×2 (09:25→22:08)
[2016-08-13 11:49] LABS: Glucose,Whole Blood 134 mg/dL (75-99)
--- NOTE | 2016-08-13 13:18 | PN ---
Patient is seen for followup for acute kidney injury. Her creatinine has gone up again it was 1.5 on initial admission and 1.7 yesterday. Today it is at 1.96. Patient is maintained on Lasix with significant lower extremity edema and fluid overload. She has been voiding; however, I will have postvoid scan done to rule out any underlying urine retention. Blood pressure has been slightly on the lower side. Patient is maintained on large dose of Coreg. We can also decrease the Norvasc, given her significant lower extremity edema and low blood pressure readings. On examination today, patient is comfortable, not in any acute distress. Blood pressure is 111/53, heart rate 59 per minute. She is afebrile. EXAMINATION OF THE HEART: S1 and S2. EXAMINATION OF LUNGS: Bilateral breath sounds are heard. Decreased breath sounds at the bases. ABDOMEN: Soft, obese, nontender. Examination of the lower extremities shows chronic edema 2+ bilaterally. RELIABILITY MANAGER exam is grossly intact. Labs show sodium 140, potassium 5.0. Serum creatinine 1.96. ASSESSMENT: 1. Acute kidney injury, most likely acute tubular necrosis, rule out urine retention. Will check postvoid bladder scan and blood pressure is also on the lower side, I will DC the Norvasc particularly as patient already has lower extremity edema and slightly ( ). The ultrasound did not reveal any underlying hydronephrosis. Patient is not on any nephrotoxic medications at this time. Prior creatinine was 1.1 on 05/05/2016. 2. Moderate pulmonary hypertension. 3. Diastolic dysfunction with ejection fraction 55%. 4. Dyslipidemia. 5. Hypertension. Blood pressure on the lower side. DC the amlodipine. PLAN: DC amlodipine. Check postvoid residual scan to rule out underlying urine retention. Repeat labs in a.m. Decrease Lasix.
--- NOTE | 2016-08-13 15:56 | P.PN ---
Subjective Principal diagnosis: CHf This is a 65-year-old female with known history of diabetes, hypertension, hyperlipidemia, prior stenting of the LAD in 2015, follows with Dr. Wayne in the office. She states that she recently seen Dr. Nagy in the office approximately one week ago, with symptoms of exertional shortness of breath significant bilateral leg swelling and chest discomfort suggestive of unstable angina. Patient was apparently told by Dr. Nagy that she require cardiac catheterization, he had outpatient labs drawn which revealed elevated creatinine. The patient was told that the cath would be deferred because of the abnormal creatinine. She presents to the hospital on this occasion with symptoms of shortness of breath, both exertional and at rest, PND and orthopnea , as well as left sided abdominal pain. Chest x-ray on admission revealed new a pulmonary interstitial edema and pleural effusions as compared with prior exam. EKG on admission revealed a sinus bradycardia with a left bundle-branch block pattern. Diuresing on IV Lasix. Overall the patient states she feels mildly better today. Abdominal pain is mildly better. Continues to have peripheral edema. Creatinine today 0.9, potassium 5.0. Objective - Vital Signs Vital signs: Vital Signs Temp 98.3 F 08/13/16 12:00 Pulse 59 L 08/13/16 12:00 Resp 18 08/13/16 12:00 BP 115/73 08/13/16 12:00 Pulse Ox 97 08/13/16 12:00 Intake & Output 08/12/16 08/13/16 08/13/16 18:59 06:59 18:59 Intake Total 240 960 222 Output Total 325 Balance 240 635 222 Weight 103.5 kg 104.4 kg Intake: Oral 240 960 222 Output: Urine 325 Other: Voiding Method Toilet Toilet # Voids 1 1 2 - Exam PHYSICAL EXAMINATION: HEENT: Head is atraumatic, normocephalic. Pupils equal, round. Neck is supple. There is elevated jugular venous pressure. HEART EXAMINATION: Heart S1 and S2 systolic murmur is heard CHEST EXAMINATION: Lungs reveal diminished air entry to bilateral bases. ABDOMEN: Soft,obese, left upper quadrant tenderness noted. Bowel sounds are heard. No organomegaly noted. EXTREMITIES: 2+ peripheral pulses with trace evidence of peripheral edema and no calf tenderness noted. NEUROLOGIC patient is awake, alert and oriented -3. . - Labs CBC & Chem 7: 08/12/16 08:30 08/13/16 10:33 Labs: Abnormal Lab Results - Last 24 Hours (Table) 08/12/16 08/12/16 08/13/16 Range/Units 17:13 20:56 01:53 Chloride (98-107) mmol/L BUN (7-17) mg/dL Creatinine (0.52-1.04) mg/dL Glucose (74-99) mg/dL POC Glucose (mg/dL) 224 H 119 H 115 H (75-99) mg/dL 08/13/16 08/13/16 08/13/16 Range/Units 06:33 10:33 11:44 Chloride 110 H (98-107) mmol/L BUN 50 H (7-17) mg/dL Creatinine 1.96 H (0.52-1.04) mg/dL Glucose 129 H (74-99) mg/dL POC Glucose (mg/dL) 120 H 134 H (75-99) mg/dL Assessment and Plan Plan: Assessment and plan #1 congestive heart failure, diastolic acute on chronic #2 left upper quadrant abdominal discomfort #3 acute on chronic renal failure #4 chronic anemia #5 known history of coronary artery disease with prior stenting of the LAD in 2014. Patient has had symptoms recently suggestive of unstable angina, was recommended by Dr. Nagy to undergo cardiac catheterization which was deferred because of abnormal renal function. #6 hypertension #7 hyperlipidemia #8 diabetes Plan Recommend to continue current dose of IV Lasix, monitor intake and output along with daily weights closely. Daily lytes BUN and creatinine. DNP note has been reviewed, I agree with a documented findings and plan of care. Patient was seen and examined.
[2016-08-13 16:58] LABS: Glucose,Whole Blood 130 mg/dL (75-99)
--- NOTE | 2016-08-13 19:15 | PN ---
DATE OF SERVICE: 08/13/2016 PRESENTING COMPLAINT: Chest pain, shortness of breath. INTERVAL HISTORY: This is a 65-year-old female with extensive medical history. Patient presented with a one-day history of chest pain, pressure going across her chest and lasting at least 12 hours, associated with shortness of breath. Today patient's , daughter and son-in-law are at the bedside. Patient is awake and able to answer questions. No distress noted. Patient states her breathing is easier and she feels better in that regard; however, she continues to have left upper quadrant abdominal pain and tenderness on palpation; complains about pain when she sits up and also complains of pain that wraps around to her left flank. Review of systems done for constitutional, cardiovascular, gastrointestinal, pulmonary, with relevant findings as above. CURRENT MEDICATIONS: 1. Norvasc. 2. Aspirin. 3. Lipitor. 4. Coreg. 5. Celexa. 6. Lasix. 7. Heparin. 8. Protonix. 9. Imdur. 10. Synthroid. PHYSICAL EXAMINATION: VITAL SIGNS: Temperature 97.8, pulse 57, respiratory rate 18, blood pressure 108/64, oxygen saturation 93% on 2 L nasal cannula EYES: Pupils equal. Conjunctivae normal. NECK: JVD not raised. Mass not palpable. LUNGS: Diminished bilaterally. Some expiratory wheezing noted. RESPIRATORY: Effort normal. Unlabored. CARDIOVASCULAR: S1, S2 normal. Plus two edema to bilateral lower extremities. ABDOMEN: Soft, tender to left upper quadrant. Liver and spleen not palpable. PSYCHIATRIC: Alert and oriented x3. Mood and affect are normal. INVESTIGATIONS: Sodium 144, potassium 5.0. BUN 50, creatinine 1.96. Cardiology remains on consult. Plan to continue current dose of IV Lasix. Monitor daily labs. ASSESSMENT: 1. Acute on chronic congestive heart failure exacerbation from diastolic dysfunction; ejection fraction 55%, from underlying coronary artery disease. 2. Hypertensive heart disease, concentric left ventricular hypertrophy. 3. Moderate secondary pulmonary hypertension from underlying congestive heart failure. 4. Moderate mitral regurgitation, non-rheumatic. 5. Coronary artery disease with stent to the left anterior descending artery in March of 2015. 6. Hyperlipidemia. 7. Diabetes mellitus, type 2, chronically on insulin. 8. Morbid obesity; body mass index more than 35. 9. Depression not otherwise specified. 10. Acute renal failure, probably acute tubular necrosis as per Nephrology. I am not sure now if there is a chronic kidney disease element. 11. Possible urinary tract infection. PLAN: Will continue with diuresis per cardiology note. Continue to monitor patient's electrolytes; specifically BUN and creatinine. Will add Ceftin for the UTI and continue that for a few more days. Plan of care was discussed with the patient, her and family at bedside. Patient was seen and examined by nurse practitioner Linda Pride and elements the case were discussed with attending, Dr. Capone.
[2016-08-13 20:53] LABS: Glucose,Whole Blood 163 mg/dL (75-99)
--- NOTE | 2016-08-13 21:15 | US ---
EXAMINATION TYPE: US kidneys/renal and bladder DATE OF EXAM: 08/13/2016 8:52 PM COMPARISON: Prior US in PACS 08/12/2016, CT-2016 CLINICAL HISTORY: INCREASING BUN CR.. EXAM MEASUREMENTS: Right Kidney: 12.4 x 5.5 x 5.5 cm Left Kidney: 13.1 x 5.8 x 5.5 cm Right Kidney: No hydronephrosis or masses seen Left Kidney: No hydronephrosis or masses seen, lobulated contour Bladder: wnl Bilateral Jets seen: Yes There is no evidence for hydronephrosis at this point in time. No nephrolithiasis is seen. No juanito s are identified. The urinary bladder is anechoic. Bilateral ureteral jets are seen. IMPRESSION: No evidence of renal stone or obstruction. No adverse change compared to yesterday.
[2016-08-13] MEDS: amLODIPine 10 MG TAB PO SCH (22:09)
[2016-08-13] MEDS: ATORVASTATIN 80 MG TAB PO SCH (22:09)
[2016-08-13] MEDS: FUROSEMIDE 10 MG/ML 4 ML VIAL IV SCH (22:11)
--- NOTE | 2016-08-13 22:55 | PN ---
DATE OF SERVICE: 08/13/2016 ATTENDING NOTE: This patient was seen and examined by me earlier today. I read the note of my nurse practitioner Ms. Pride and agree with the same except for the changes below. This is a patient who presented with chest pain; not felt to be a candidate for cardiac catheterization because of renal function. Also has congestive heart failure. Breathing is better. Swelling has gone down. Patient has been up to the bathroom. Her is at the bedside. Did tolerate a diet. Overall feeling better. On examination, lungs have decreased breath sounds. CARDIOVASCULAR: First and second sounds normal. ABDOMEN: Soft. INVESTIGATIONS: BUN 50, creatinine 1.96. ASSESSMENT: 1. Acute on chronic congestive heart failure from diastolic dysfunction; ejection fraction 55%, from underlying coronary artery disease. 2. Hypertensive heart disease, concentric left ventricular hypertrophy. 3. Moderate secondary pulmonary hypertension. 4. Acute renal failure, probably acute tubular necrosis as per Nephrology. Cannot rule out a chronic cause. 5. Urinary tract infection from Gram-negative bacilli. PLAN: Patient encouraged to walk in the hallway. Overall feeling better. Patient should be able to be switched over to oral Lasix in the morning. Will repeat a chest x-ray, too.
[2016-08-14 02:19] LABS: Glucose,Whole Blood 83 mg/dL (75-99)
[2016-08-14 06:19] LABS: CH 28.8; HCT 26.5 % (34.0-46.0); HDW 2.94; HGB 8.3 gm/dL (11.4-16.0); Hypochromasia Moderate; MCH 29.3 pg (25.0-35.0); MCHC 31.5 g/dL (31.0-37.0); MCV 93.1 fL (80.0-100.0); RBC 2.85 m/uL (3.80-5.40); RDW 14.1 % (11.5-15.5); WBC 5.7 k/uL (3.8-10.6)
[2016-08-14 06:26] LABS: Calcium 9.3 mg/dL (8.4-10.2); Potassium 4.4 mmol/L (3.5-5.1)
[2016-08-14 06:34] LABS: Glucose,Whole Blood 94 mg/dL (75-99)
[2016-08-14] MEDS: INSULIN LISPRO (humaLOG) 300 UNIT/3 ML VIAL SQ SCH ×4 (06:35→21:16)
[2016-08-14] MEDS: CARVEDILOL 12.5 MG TAB PO SCH ×2 (06:56→16:40)
[2016-08-14] MEDS: PANTOPRAZOLE 40 MG TABLET PO SCH (06:57)
[2016-08-14] MEDS: LEVOTHYROXINE 75 MCG TAB PO SCH (06:57)
--- NOTE | 2016-08-14 08:06 | XR ---
EXAMINATION TYPE: XR chest 2V DATE OF EXAM: 08/14/2016 6:17 AM COMPARISON: 08/11/2016 TECHNIQUE: PA and lateral views submitted. HISTORY: Shortness of breath FINDINGS: There is persistent right upper lobe and left lower lobe subsegmental consolidation with small effusi on. Tiny right effusion also suspected with hypertrophic change of the spine. Heart size stable. Inte rstitium mildly prominent. IMPRESSION: 1. Small bilateral effusions with left basilar infiltrate and patchy right upper lobe infiltrate stab le. Differential include pneumonia. Venous congestion not excluded.
[2016-08-14] MEDS: ASPIRIN 81 MG CHEW PO SCH (08:18)
[2016-08-14] MEDS: CEFUROXIME 250 MG TAB PO SCH (08:18)
[2016-08-14] MEDS: FUROSEMIDE 10 MG/ML 4 ML VIAL IV SCH ×2 (08:18→21:16)
[2016-08-14] MEDS: CITALOPRAM HYDROBROMIDE 20 MG TAB PO SCH (08:18)
[2016-08-14] MEDS: ISOSORBIDE MONONITRATE ER 60 MG TAB.ER.24H PO SCH (08:18)
[2016-08-14] MEDS: HEPARIN SODIUM,PORCINE 5,000 UNIT/ML 1 ML VIAL SQ SCH ×2 (08:19→16:40)
[2016-08-14] MEDS: INSULIN GLARGINE 100 UNIT/ML 10 ML VIAL SQ SCH ×2 (08:21→21:15)
--- NOTE | 2016-08-14 09:42 | P.PN ---
Subjective Patient is seen in follow-up for acute kidney injury and volume overload. Patient has diastolic CHF with moderate pulmonary hypertension. Currently resting in bed. Denies chest pain. Dyspnea is improved and so is her lower extremity edema. Renal function is also mildly improved with creatinine at 1.84 today. Currently maintained on Lasix 40 mg IV twice daily. Vital signs are stable. General: The patient appeared well nourished and normally developed. HEENT: Head exam is unremarkable. Neck is without jugular venous distension. LUNGS: Lungs are clear to auscultation and percussion. Breath sounds decreased. HEART: Rate and Rhythm are regular. First and second heart sounds normal. No murmurs, rubs or gallops. ABDOMEN: Abdominal exam reveals normal bowel sounds. Non-tender and non- distended. No evidence of peritonitis. EXTREMITITES: 1+ edema. Objective - Vital Signs Vital signs: Vital Signs Temp 98 F 08/14/16 04:00 Pulse 62 08/14/16 04:00 Resp 16 08/14/16 04:00 BP 148/68 08/14/16 04:00 Pulse Ox 96 08/14/16 04:00 Intake & Output 08/13/16 08/14/16 08/14/16 18:59 06:59 18:59 Intake Total 222 120 Output Total 1025 Balance 222 -1025 120 Weight 102.7 kg Intake: Oral 222 120 Output: Urine 1025 Other: Voiding Method Toilet Toilet # Voids 1 1 - Labs CBC & Chem 7: 08/14/16 05:40 08/14/16 05:40 Labs: Abnormal Lab Results - Last 24 Hours (Table) 08/13/16 08/13/16 08/13/16 Range/Units 10:33 11:44 16:58 RBC (3.80-5.40) m/uL Hgb (11.4-16.0) gm/dL Hct (34.0-46.0) % Chloride 110 H (98-107) mmol/L BUN 50 H (7-17) mg/dL Creatinine 1.96 H (0.52-1.04) mg/dL Glucose 129 H (74-99) mg/dL POC Glucose (mg/dL) 134 H 130 H (75-99) mg/dL 08/13/16 08/14/16 08/14/16 Range/Units 20:50 05:40 05:40 RBC 2.85 L (3.80-5.40) m/uL Hgb 8.3 L (11.4-16.0) gm/dL Hct 26.5 L (34.0-46.0) % Chloride 109 H (98-107) mmol/L BUN 55 H (7-17) mg/dL Creatinine 1.84 H (0.52-1.04) mg/dL Glucose (74-99) mg/dL POC Glucose (mg/dL) 163 H (75-99) mg/dL Microbiology - Last 24 Hours (Table) 08/12/16 06:13 Urine Culture - Preliminary Urine,Voided Gram Neg Bacilli Assessment and Plan Plan: Assessment: #1. Nonoliguric acute kidney injury secondary to cardiorenal syndrome. Creatinine slightly improved to 1.84 this morning. #2. Diastolic CHF with moderate pulmonary hypertension. #3. Volume overload. Improving. #4. Urinary tract infection with urine culture positive for gram-negative bacilli. #5. Hypertension. Controlled. #6. Anemia. Rule out iron deficiency. Plan: Continue Lasix 40 mg IV twice daily. Check iron studies. Postvoid residual not done as the patient is not letting the nurse know once she voids. I will add Rocephin 1 g every 24 hours for UTI. Follow-up urine culture. Avoid nephrotoxic agents and hypotensive episodes. Repeat electrolytes in the morning.
[2016-08-14 11:37] LABS: % Iron Saturation 9.3 % (20-50)
[2016-08-14 11:57] LABS: Glucose,Whole Blood 155 mg/dL (75-99)
--- NOTE | 2016-08-14 15:40 | P.PN ---
Subjective Principal diagnosis: CHf This is a 65-year-old female with known history of diabetes, hypertension, hyperlipidemia, prior stenting of the LAD in 2015, follows with Dr. Wayne in the office. She states that she recently seen Dr. Nagy in the office approximately one week ago, with symptoms of exertional shortness of breath significant bilateral leg swelling and chest discomfort suggestive of unstable angina. Patient was apparently told by Dr. Nagy that she require cardiac catheterization, he had outpatient labs drawn which revealed elevated creatinine. The patient was told that the cath would be deferred because of the abnormal creatinine. She presents to the hospital on this occasion with symptoms of shortness of breath, both exertional and at rest, PND and orthopnea , as well as left sided abdominal pain. Chest x-ray on admission revealed new a pulmonary interstitial edema and pleural effusions as compared with prior exam. EKG on admission revealed a sinus bradycardia with a left bundle-branch block pattern. Diuresing on IV Lasix. Overall the patient states she feels mildly better today. Abdominal pain is mildly better. Peripheral edema is also improving. Weight is down 2 kg today. Creatinine 1.8 today. Objective - Vital Signs Vital signs: Vital Signs Temp 98.3 F 08/14/16 12:00 Pulse 59 L 08/14/16 12:00 Resp 18 08/14/16 12:00 BP 112/61 08/14/16 12:00 Pulse Ox 93 L 08/14/16 12:00 Intake & Output 08/13/16 08/14/16 08/14/16 18:59 06:59 18:59 Intake Total 222 600 Output Total 1025 Balance 222 -1025 600 Weight 102.7 kg Intake: Oral 222 600 Output: Urine 1025 Other: Voiding Method Toilet Toilet Toilet # Voids 1 1 3 - Exam PHYSICAL EXAMINATION: HEENT: Head is atraumatic, normocephalic. Pupils equal, round. Neck is supple. There is elevated jugular venous pressure. HEART EXAMINATION: Heart S1 and S2 systolic murmur is heard CHEST EXAMINATION: Lungs reveal diminished air entry to bilateral bases. ABDOMEN: Soft,obese, left upper quadrant tenderness noted. Bowel sounds are heard. No organomegaly noted. EXTREMITIES: 2+ peripheral pulses with no evidence of peripheral edema and no calf tenderness noted. NEUROLOGIC patient is awake, alert and oriented -3. . - Labs CBC & Chem 7: 08/14/16 05:40 08/14/16 05:40 Labs: Abnormal Lab Results - Last 24 Hours (Table) 08/13/16 08/13/16 08/14/16 Range/Units 16:58 20:50 05:40 RBC 2.85 L (3.80-5.40) m/uL Hgb 8.3 L (11.4-16.0) gm/dL Hct 26.5 L (34.0-46.0) % Chloride (98-107) mmol/L BUN (7-17) mg/dL Creatinine (0.52-1.04) mg/dL POC Glucose (mg/dL) 130 H 163 H (75-99) mg/dL Iron (37-170) ug/dL % Saturation (20-50) % 08/14/16 08/14/16 08/14/16 Range/Units 05:40 05:40 11:41 RBC (3.80-5.40) m/uL Hgb (11.4-16.0) gm/dL Hct (34.0-46.0) % Chloride 109 H (98-107) mmol/L BUN 55 H (7-17) mg/dL Creatinine 1.84 H (0.52-1.04) mg/dL POC Glucose (mg/dL) 155 H (75-99) mg/dL Iron 26 L (37-170) ug/dL % Saturation 9.3 L (20-50) % Microbiology - Last 24 Hours (Table) 08/12/16 06:13 Urine Culture - Final Urine,Voided Klebsiella pneumoniae Assessment and Plan Plan: Assessment and plan #1 congestive heart failure, diastolic acute on chronic #2 left upper quadrant abdominal discomfort #3 acute on chronic renal failure #4 chronic anemia #5 known history of coronary artery disease with prior stenting of the LAD in 2015. Patient has had symptoms recently suggestive of unstable angina, was recommended by Dr. Nagy to undergo cardiac catheterization which was deferred because of abnormal renal function. #6 hypertension #7 hyperlipidemia #8 diabetes Plan Recommend to continue current dose of IV Lasix, monitor intake and output along with daily weights closely. Daily lytes BUN and creatinine. DNP note has been reviewed, I agree with a documented findings and plan of care. Patient was seen and examined.
[2016-08-14 16:47] LABS: Glucose,Whole Blood 123 mg/dL (75-99)
--- NOTE | 2016-08-14 19:11 | PN ---
DATE OF SERVICE: 08/14/2016 PRESENTING COMPLAINT: Shortness of breath. INTERVAL HISTORY: This is a patient admitted with acute congestive heart failure exacerbation. Breathing is getting better, though the patient's chest x-ray from this morning is looking wet. Patient has been up to the bathroom. Patient also has acute renal failure, felt to be cardiorenal syndrome per Nephrology. Tolerating a diet. Overall feels a bit better. Review of systems done for constitutional, cardiovascular, GI, pulmonary; relevant findings as above. Current medications are reviewed that include IV ceftriaxone, IV Lasix. On examination, temperature 98.5, pulse 60, respiration 16, blood pressure 110/52, pulse ox 93% on room air. GENERAL APPEARANCE: Lying in bed, not in distress. EYES: Pupils equal. Conjunctivae normal. NECK: JVD unable to assess. Mass not palpable. RESPIRATORY: Effort increased. LUNGS: Decreased breath sounds. CARDIOVASCULAR: First and second sounds normal. Decreased edema. ABDOMEN: Soft, nontender. Liver and spleen not palpable. PSYCHIATRY: Alert and oriented x3. Mood and affect normal. INVESTIGATIONS: White count 5.7, hemoglobin 8.3. Potassium 4.4. BUN 55, creatinine 1.84. Urine showing Klebsiella pneumoniae. Chest x-ray showing pulmonary edema, fluid in the horizontal fissure. ASSESSMENT: 1. Acute on chronic congestive heart failure exacerbation from diastolic dysfunction, ejection fraction 55%, from underlying coronary artery disease, slow to respond. 2. Hypertensive heart disease with concentric left ventricular hypertrophy. 3. Moderate secondary pulmonary hypertension from underlying congestive heart failure. 4. Moderate mitral regurgitation, non-rheumatic. 5. Coronary artery disease with stent to the left anterior descending coronary artery in March of 2015. 6. Hyperlipidemia. 7. Diabetes mellitus, type 2, chronically on insulin. 8. Morbid obesity; body mass index of more than 35. 9. Depression not otherwise specified. 10. Acute renal failure, possibly acute tubular necrosis from cardiorenal syndrome per Nephrology. 11. Acute urinary tract infection from Klebsiella pneumoniae. PLAN: Continue the patient on IV Lasix. Patient will be switched over to p.o. Keflex for the UTI. Care was discussed with the patient. Will follow.
[2016-08-14 21:14] LABS: Glucose,Whole Blood 154 mg/dL (75-99)
[2016-08-14] MEDS: amLODIPine 10 MG TAB PO SCH (21:17)
[2016-08-14] MEDS: ATORVASTATIN 80 MG TAB PO SCH (21:17)
[2016-08-15] MEDS: HEPARIN SODIUM,PORCINE 5,000 UNIT/ML 1 ML VIAL SQ SCH ×4 (01:20→23:10)
[2016-08-15 06:10] LABS: Glucose,Whole Blood 84 mg/dL (75-99)
[2016-08-15] MEDS: INSULIN LISPRO (humaLOG) 300 UNIT/3 ML VIAL SQ SCH ×4 (06:30→21:47)
[2016-08-15] MEDS: PANTOPRAZOLE 40 MG TABLET PO SCH (06:35)
[2016-08-15] MEDS: CARVEDILOL 12.5 MG TAB PO SCH ×2 (06:35→17:25)
[2016-08-15] MEDS: LEVOTHYROXINE 75 MCG TAB PO SCH (06:36)
[2016-08-15 06:43] LABS: Calcium 9.4 mg/dL (8.4-10.2); Potassium 4.1 mmol/L (3.5-5.1)
[2016-08-15] MEDS: CITALOPRAM HYDROBROMIDE 20 MG TAB PO SCH (09:41)
[2016-08-15] MEDS: CEPHALEXIN 250 MG CAP PO SCH ×3 (09:41→22:05)
[2016-08-15] MEDS: FUROSEMIDE 10 MG/ML 4 ML VIAL IV SCH ×2 (09:41→20:41)
[2016-08-15] MEDS: ASPIRIN 81 MG CHEW PO SCH (09:41)
[2016-08-15] MEDS: ISOSORBIDE MONONITRATE ER 60 MG TAB.ER.24H PO SCH (09:42)
[2016-08-15] MEDS: INSULIN GLARGINE 100 UNIT/ML 10 ML VIAL SQ SCH ×2 (09:47→20:41)
[2016-08-15 11:53] LABS: Glucose,Whole Blood 169 mg/dL (75-99)
--- NOTE | 2016-08-15 12:13 | PN ---
DATE OF SERVICE: 08/15/2016 PRESENTING COMPLAINT: Shortness of breath. INTERVAL HISTORY: This is a 65-year-old patient with acute congestive heart failure exacerbation. Breathing improved each day. However, previous chest x-ray appeared wet. Patient ambulatory to the bathroom. Patient also has acute renal failure believed to be cardiorenal syndrome per nephrology. Tolerating diet. Overall feels better. No complaints of left upper quadrant pain today. Review of systems done for constitutional, cardiovascular, GI, pulmonary with relevant findings as above. CURRENT MEDICATIONS: IV ceftriaxone, IV Lasix. PHYSICAL EXAM: VITAL SIGNS: Temperature 98.5, pulse 60, respiratory rate 20, blood pressure 127/64, oxygen saturation 96% on room air. GENERAL APPEARANCE: Patient is lying in bed, at the bedside. No acute distress. EYES: Pupils equal. Conjunctivae normal. NECK: JVD not raised. Mass not palpable. RESPIRATORY: Effort increased. LUNGS: Decreased breath sounds bilaterally. CARDIOVASCULAR: S1, S2 normal. Decreased edema. ABDOMEN: Soft, nontender. Liver and spleen not palpable. PSYCHIATRY: Alert and oriented x3. Mood and affect are normal. INVESTIGATIONS: Sodium 146, potassium 4.1, chloride 110, BUN 56, creatinine 1.74. ASSESSMENT: 1. Acute on chronic congestive heart failure exacerbation from diastolic dysfunction, ejection fraction 55%, from underlying coronary artery disease, slow to respond. 2. Hypertensive heart disease with concentric left ventricular hypertrophy. 3. Moderate secondary pulmonary hypertension from underlying congestive heart failure. 4. Moderate mitral regurgitation, nonrheumatic. 5. Coronary artery disease with stent to the left anterior descending coronary artery in March 2015. 6. Hyperlipidemia. 7. Diabetes mellitus type 2, chronically on insulin. 8. Morbid obesity; body mass index of more than 35. 9. Depression, not otherwise specified. 10. Acute renal failure, possibly acute tubular necrosis from cardiorenal syndrome per Nephrology. 11. Acute urinary tract infection from Klebsiella pneumoniae. PLAN: Continue IV Lasix. Patient will remain on Keflex p.o. for the UTI. Plan of care was discussed with the patient. Will continue to monitor. Patient was seen and examined by nurse practitioner, Linda Pride, and all elements of the case were discussed with attending, Dr. Capone.
--- NOTE | 2016-08-15 14:56 | P.PN ---
Subjective Principal diagnosis: CHf This is a 65-year-old female with known history of diabetes, hypertension, hyperlipidemia, prior stenting of the LAD in 2015, follows with Dr. Wayne in the office. She states that she recently seen Dr. Nagy in the office approximately one week ago, with symptoms of exertional shortness of breath significant bilateral leg swelling and chest discomfort suggestive of unstable angina. Patient was apparently told by Dr. Nagy that she require cardiac catheterization, he had outpatient labs drawn which revealed elevated creatinine. The patient was told that the cath would be deferred because of the abnormal creatinine. She presents to the hospital on this occasion with symptoms of shortness of breath, both exertional and at rest, PND and orthopnea , as well as left sided abdominal pain. Chest x-ray on admission revealed new a pulmonary interstitial edema and pleural effusions as compared with prior exam. EKG on admission revealed a sinus bradycardia with a left bundle-branch block pattern. Diuresing on IV Lasix. Overall the patient states she feels mildly better today. Peripheral edema is also improving. Weight is down 2 kg today. Creatinine 1.7 today. Objective - Vital Signs Vital signs: Vital Signs Temp 98.5 F 08/15/16 12:00 Pulse 61 08/15/16 12:00 Resp 16 08/15/16 12:00 BP 125/67 08/15/16 12:00 Pulse Ox 94 L 08/15/16 12:00 Intake & Output 08/14/16 08/15/16 08/15/16 18:59 06:59 18:59 Intake Total 840 0 Output Total 200 600 Balance 640 -600 0 Weight 100.5 kg Intake: IV 0 cefTRIAXone 1,000 mg In 0 Sodium Chloride 0.9% 50 ml @ 100 mls/hr IVPB Q24HR [facility] Rx#:[id number] Oral 840 Output: Urine 200 600 Other: Voiding Method Toilet Toilet Toilet # Voids 1 1 3 - Exam PHYSICAL EXAMINATION: HEENT: Head is atraumatic, normocephalic. Pupils equal, round. Neck is supple. There is elevated jugular venous pressure. HEART EXAMINATION: Heart S1 and S2 systolic murmur is heard CHEST EXAMINATION: Lungs reveal diminished air entry to bilateral bases. ABDOMEN: Soft,obese, left upper quadrant tenderness noted. Bowel sounds are heard. No organomegaly noted. EXTREMITIES: 2+ peripheral pulses with no evidence of peripheral edema and no calf tenderness noted. NEUROLOGIC patient is awake, alert and oriented -3. . - Labs CBC & Chem 7: 08/14/16 05:40 08/15/16 05:44 Labs: Abnormal Lab Results - Last 24 Hours (Table) 08/14/16 08/14/16 08/15/16 Range/Units 16:42 21:13 05:44 Sodium 146 H (137-145) mmol/L Chloride 110 H (98-107) mmol/L BUN 56 H (7-17) mg/dL Creatinine 1.74 H (0.52-1.04) mg/dL POC Glucose (mg/dL) 123 H 154 H (75-99) mg/dL 08/15/16 Range/Units 11:51 Sodium (137-145) mmol/L Chloride (98-107) mmol/L BUN (7-17) mg/dL Creatinine (0.52-1.04) mg/dL POC Glucose (mg/dL) 169 H (75-99) mg/dL Assessment and Plan Plan: Assessment and plan #1 congestive heart failure, diastolic acute on chronic #2 left upper quadrant abdominal discomfort #3 acute on chronic renal failure #4 chronic anemia #5 known history of coronary artery disease with prior stenting of the LAD in 2015. Patient has had symptoms recently suggestive of unstable angina, was recommended by Dr. Nagy to undergo cardiac catheterization which was deferred because of abnormal renal function. #6 hypertension #7 hyperlipidemia #8 diabetes Plan Recommend to continue current dose of IV Lasix, monitor intake and output along with daily weights closely. Daily lytes BUN and creatinine. DNP note has been reviewed, I agree with a documented findings and plan of care. Patient was seen and examined.
[2016-08-15 17:02] LABS: Glucose,Whole Blood 154 mg/dL (75-99)
--- NOTE | 2016-08-15 18:42 | PN ---
Patient is seen for followup for acute kidney injury. Her renal function has improved to some degree with creatinine decreasing to 1.7 from 1.9 mg/dL at peak on 08/13/2016. She has significant lower extremity edema and severe pulmonary hypertension and was being diuresed. Lasix was decreased and is currently 40 mg IV q.12 hours. Patient states she is feeling better. Her lower extremity edema has improved. On examination, blood pressure is 131/62, heart rate 62 per minute. She is afebrile. EXAMINATION OF THE HEART: S1 and S2. EXAMINATION OF THE LUNGS: Bilateral breath sounds are heard. ABDOMEN: Soft, obese. Examination of lower extremities shows edema 1+ bilaterally, currently decreased. [employer] EXAMINATION: Grossly intact. Labs show sodium 146, potassium 4.1, BUN 56, serum creatinine 1.74. Calcium 9.4. ASSESSMENT: 1. Acute kidney injury, possibly acute tubular necrosis, currently improving. Lasix was decreased. Renal function has improved. Will likely switch to oral Lasix tomorrow. 2. Severe pulmonary hypertension with chronic lower extremity edema. 3. Chronic kidney disease with previous creatinine about 1.1 mg/dL on 05/05/2016. Etiology is likely nephrosclerosis. 4. Pyuria with evidence of urinary tract infection. Urine culture grew Klebsiella pneumoniae. Patient is maintained on Rocephin. PLAN: Switch Lasix to p.o. tomorrow. Possible discharge in the next day or so.
[2016-08-15] MEDS: amLODIPine 10 MG TAB PO SCH (20:41)
[2016-08-15] MEDS: ATORVASTATIN 80 MG TAB PO SCH (20:41)
[2016-08-15 21:10] LABS: Glucose,Whole Blood 117 mg/dL (75-99)
[2016-08-16 05:45] LABS: Glucose,Whole Blood 78 mg/dL (75-99)
[2016-08-16] MEDS: INSULIN LISPRO (humaLOG) 300 UNIT/3 ML VIAL SQ SCH ×2 (06:29→16:02)
[2016-08-16] MEDS: LEVOTHYROXINE 75 MCG TAB PO SCH (06:31)
[2016-08-16] MEDS: CARVEDILOL 12.5 MG TAB PO SCH (06:31)
[2016-08-16] MEDS: PANTOPRAZOLE 40 MG TABLET PO SCH (06:32)
[2016-08-16] MEDS: INSULIN GLARGINE 100 UNIT/ML 10 ML VIAL SQ SCH (08:14)
[2016-08-16] MEDS: ASPIRIN 81 MG CHEW PO SCH (08:15)
[2016-08-16] MEDS: ISOSORBIDE MONONITRATE ER 60 MG TAB.ER.24H PO SCH (08:15)
[2016-08-16] MEDS: FUROSEMIDE 10 MG/ML 4 ML VIAL IV SCH (08:15)
[2016-08-16] MEDS: HEPARIN SODIUM,PORCINE 5,000 UNIT/ML 1 ML VIAL SQ SCH (08:15)
[2016-08-16] MEDS: CITALOPRAM HYDROBROMIDE 20 MG TAB PO SCH (08:15)
[2016-08-16] MEDS: CEPHALEXIN 250 MG CAP PO SCH (08:15)
[2016-08-16] MEDS ORDERED: FUROSEMIDE 40 MG TAB PO SCH (09:00)
[2016-08-16 12:00] LABS: Glucose,Whole Blood 105 mg/dL (75-99)
[2016-08-16 14:36] VITALS: RESP 18
[2016-08-16 15:53] VITALS: BP 115/64; PULSE 69; TEMP 98.1
--- NOTE | 2016-08-16 16:31 | PN ---
DATE OF SERVICE: 08/15/2016 ATTENDING NOTE: This patient was seen and examined by me on 08/15/2016. I reviewed the note of my nurse practitioner Ms. Pride and discussed and agreed with the same. Patient is here with acute congestive heart failure. Slowly getting better on IV Lasix. Been up in the hallway. at the bedside. ( ) acute renal failure. On examination, lungs improved air entry. CARDIOVASCULAR: First and second sounds normal. Decreased edema. INVESTIGATIONS: Potassium 4.1. BUN 56, creatinine 1.74. ASSESSMENT: 1. Acute on chronic congestive heart failure from diastolic dysfunction; ejection fraction 55%, improving. 2. Acute urinary tract infection from klebsiella pneumonia. PLAN: Continue current medication and treatment plan. The patient continues to improve. Looking better. discussed with the patient and .
[2016-08-16 16:53] LABS: Glucose,Whole Blood 133 mg/dL (75-99)
--- NOTE | 2016-08-16 18:43 | PN ---
DATE OF SERVICE: 08/16/2016 PRESENTING COMPLAINT: Shortness of breath. INTERVAL HISTORY: This is a 65-year-old patient with acute congestive heart failure exacerbation. Breathing is improved each day, however, previous chest x-ray appeared wet. Additional doses of Lasix have been prescribed. Today patient is ambulatory to the bathroom, tolerating diet, and states that overall she feels better. However, overnight patient did complain of left arm pain and mild chest pain. Review of systems for constitutional, cardiovascular, GI, pulmonary, with relevant findings as above. CURRENT MEDICATIONS: IV ceftriaxone, IV Lasix. PHYSICAL EXAMINATION: VITAL SIGNS: Temperature 97.0, pulse 66, respiratory rate 16, blood pressure 129/59, oxygen saturation 96% on room air. GENERAL APPEARANCE: Patient lying in bed. at the bedside. No acute distress noted or voiced. EYES: Pupils equal. Conjunctivae normal. NECK: JVD not raised. Mass not palpable. LUNGS: Diminished bases. Mild crackles noted to the left lung field. Respiratory effort normal, unlabored. CARDIOVASCULAR: First and second sounds noted. There is +1 edema to bilateral lower extremities. ABDOMEN: Soft, nontender. Liver and spleen not palpable. PSYCHIATRY: Alert and oriented x3. Mood and affect are normal. INVESTIGATIONS: Blood sugar 78. ASSESSMENT: 1. Acute on chronic congestive heart failure exacerbation from diastolic dysfunction, ejection fraction 55%, from underlying coronary artery disease, slow to respond. 2. Hypertensive heart disease with concentric left ventricular hypertrophy. 3. Moderate secondary pulmonary hypertension from underlying congestive heart failure. 4. Moderate mitral regurgitation, nonrheumatic. 5. Coronary artery disease with stent to the left anterior descending coronary artery in March 25, 2015. 6. Hyperlipidemia. 7. Diabetes mellitus type 2, chronically on insulin. 8. Morbid obesity; body mass index of 135. 9. Depression, not otherwise specified. 10. Acute renal failure, possibly acute tubular necrosis from cardiorenal syndrome per nephrology. 11. Acute urinary tract infection from Klebsiella pneumoniae. Nephrology recommended switching IV Lasix to p.o. Lasix today. Cardiology has deferred patient's cardiac catheterization due to acute kidney injury. Patient to remain on Keflex p.o. for the UTI. Plan of care was discussed with the patient and at the bedside. Will monitor. Patient was seen and examined by nurse practitioner, Linda Pride, and all elements of the case were discussed with attending, Dr. Capone.
--- NOTE | 2016-08-17 10:48 | PN ---
DATE OF SERVICE: 08/16/2016 This patient is admitted to the hospital with complaints of increasing shortness of breath and evidence of CHF. Patient also had evidence of acute kidney failure and severe pulmonary hypertension. Patient was treated with IV diuretics. She is feeling much better. The Lasix was changed to p.o. Lasix. Her blood pressure is about 130/60, pulse 87, respirations are 18. Afebrile. Neck is supple. No JVD. Lungs show some diminished breath sounds at bases. Abdomen is soft. Extremities, no significant edema. Lab values showed potassium 4.1, creatinine is 1.74. FINAL IMPRESSION: 1. Congestive heart failure. 2. Anemia. 3. Renal failure. 4. Known coronary artery disease and diabetes. PLAN: Continue current management. Patient to be discharged home on oral diuretics. Follow-up in the office in 1 to 2 weeks.
--- NOTE | 2016-08-28 11:04 | DS ---
DATE OF ADMISSION: 08/11/2016 DATE OF DISCHARGE: 08/16/2016 FINAL DIAGNOSES: 1. Acute on chronic congestive heart failure exacerbation from diastolic dysfunction; ejection fraction 55%, from underlying coronary artery disease. 2. Hypertensive heart disease with concentric left ventricular hypertrophy. 3. Moderate secondary pulmonary hypertension from underlying congestive heart failure. 4. Moderate mitral regurgitation, nonrheumatic. 5. Coronary artery disease with stent to the LAD in December 2014. 6. Hyperlipidemia. 7. Diabetes mellitus type 2, chronically on insulin. 8. Morbid obesity, body mass index of 35. 9. Depression, not otherwise specified. 10. Chronic kidney disease stage III, probably from diabetic nephropathy and hypertensive nephrosclerosis. 11. Acute kidney disease, likely from acute tubular necrosis. 12. Acute urinary tract infection from Klebsiella pneumoniae. CONSULTATIONS: 1. Dr. Maher from Cardiology. 2. Dr. Thornton from Nephrology. HOSPITAL COURSE: This patient presented with CHF exacerbation; responded well to Lasix, doing better at the time of discharge. Patient's BUN and creatinine at the time of discharge was 56/1.74. Patient has a chronic kidney disease element. Patient also had a UTI from above organism, did complete a course of antibiotics. Doing better at the time of discharge. On examination, first and second sounds are normal. Edema decreased. LUNGS: Decreased breath sounds. Care was discussed in detail with the patient and at the bedside. Questions were answered. Discharge planning more than 35 minutes. DISCHARGE MEDICATIONS: 1. Nitrostat 0.4 sublingual q.5 p.r.n. 2. Aspirin 81 mg a day. 3. Multivitamin 1 tablet p.o. daily. 4. Lipitor 80 mg q.h.s. 5. Coreg 37.5 mg p.o. b.i.d. 6. Imdur ER 30 mg p.o. daily. 7. Synthroid 75 mcg p.o. daily. 8. Norvasc 10 mg p.o. q.h.s. 9. Protonix 40 mg p.o. daily. 10. Celexa 20 mg p.o. daily. 11. Keflex 250 mg p.o. t.i.d., 9 capsules. 12. Lasix 40 mg p.o. daily. 13. Humalog 4 units a.c. t.i.d. 14. Lantus 60 units subQ q.h.s. Refer to Dr. Thornton in 10 days; Dr. Moore in 1 week, Dr. Kristina Nagy in 1 week. LABS: BMP in 3 days. DC planning more than 35 minutes.
== END 2016-08-16 18:45 | disposition home health service (06) | DRG 291 ==
LOC: EC 15:06 → 6SEL 17:52
PROVIDERS: ADMIT Hospitalist; ATTEND Hospitalist
DX: I13.0 Hypertensive heart and chronic kidney disease with heart failure and stage 1 through stage 4 chronic kidney disease, or unspecified chronic kidney disease (principal); I50.33 Acute on chronic diastolic (congestive) heart failure; N17.0 Acute kidney failure with tubular necrosis; E87.0 Hyperosmolality and hypernatremia; Z68.41 Body mass index [BMI] 40.0-44.9, adult; E11.21 Type 2 diabetes mellitus with diabetic nephropathy; I27.2 Other secondary pulmonary hypertension; N39.0 Urinary tract infection, site not specified; E66.01 Morbid (severe) obesity due to excess calories; B96.1 Klebsiella pneumoniae [K. pneumoniae] as the cause of diseases classified elsewhere; D64.9 Anemia, unspecified; E11.22 Type 2 diabetes mellitus with diabetic chronic kidney disease; E78.5 Hyperlipidemia, unspecified; F32.9 Major depressive disorder, single episode, unspecified; I25.10 Atherosclerotic heart disease of native coronary artery without angina pectoris; I25.2 Old myocardial infarction; I34.0 Nonrheumatic mitral (valve) insufficiency; I44.7 Left bundle-branch block, unspecified; N18.3 Chronic kidney disease, stage 3 (moderate); Z79.4 Long term (current) use of insulin; Z79.82 Long term (current) use of aspirin; Z79.899 Other long term (current) drug therapy; Z82.49 Family history of ischemic heart disease and other diseases of the circulatory system; Z95.5 Presence of coronary angioplasty implant and graft
CPT/HCPCS: 36415; 71020; 76770; 80048; 80053; 81001; 82728; 83036; 83540; 83550; 83690; 83880; 84484; 85025; 85027; 87077; 87086; 87186; 93005; 93306; 96374; 96375; 99285

== ENCOUNTER 2016-09-17 15:20 | Inpatient (IN) | payer MEDICARE ==
[2016-09-17] MEDS ORDERED: FUROSEMIDE 10 MG/ML 4 ML VIAL IV STA (16:29)
--- NOTE | 2016-09-17 16:32 | ED ---
General Adult HPI - General Chief complaint: Shortness of Breath Stated complaint: Feet swollen Time Seen by Provider: 09/17/16 15:50 Source: patient, family, RN notes reviewed Mode of arrival: wheelchair Limitations: no limitations - History of Present Illness Initial comments: This is a 65-year-old female with past medical history significant for congestive heart failure and kidney failure. Patient comes in today because her swelling in her legs is gotten worse and she had an episode of chest pain which radiated down her left arm today. Patient also states she is more short of breath over the last couple of days. Patient states the swelling in her legs started about a week ago. Patient states she had an adjustment made to her diuretics approximately week and a half ago. Patient denies any recent fever chills or cough. Patient denies any palpitations. Patient denies any lightheadedness dizziness or near syncopal episode. Patient denies any numbness or weakness. Patient denies abdominal pain patient denies any nausea or vomiting. - Related Data Home Medications Medication Instructions Recorded Confirmed Multivitamins, Thera [Multivitamin 1 tab PO DAILY 07/02/15 09/17/16 (formulary)] Atorvastatin [Lipitor] 80 mg PO HS 08/01/15 09/17/16 Carvedilol [Coreg*] 37.5 mg PO BID-W/MEALS 08/01/15 09/17/16 Isosorbide Mononitrate ER [Imdur] 30 mg PO QAM 08/01/15 09/17/16 Levothyroxine Sodium [Synthroid] 75 mcg PO DAILY 05/01/16 09/17/16 amLODIPine [Norvasc] 10 mg PO HS 05/23/16 09/17/16 Pantoprazole [Protonix] 40 mg PO DAILY 08/11/16 09/17/16 Insulin Glargine [Lantus] 20 unit SQ BID 09/17/16 09/17/16 Loratadine [Claritin] 10 mg PO DAILY 09/17/16 09/17/16 Losartan Potassium [Cozaar] 100 mg PO DAILY 09/17/16 09/17/16 Meclizine HCl 12.5 mg PO BID PRN 09/17/16 09/17/16 Spironolactone [Aldactone] 12.5 mg PO DAILY 09/17/16 09/17/16 Torsemide [Demadex] 20 mg PO BID 09/17/16 09/17/16 Previous Rx's Medication Instructions Recorded Nitroglycerin Sl Tabs [Nitrostat] 0.4 mg SUBLINGUAL Q5M PRN #25 tab 04/03/15 Aspirin 81 mg PO DAILY #1 chewable 06/05/15 Citalopram Hydrobromide [CeleXA] 20 mg PO DAILY tab 08/14/16 INSULIN LISPRO (HumaLOG) [HumaLOG] 4 units SQ AC-TID #1 vial 08/16/16 Allergies Allergy/AdvReac Type Severity Reaction Status Date / Time No Known Allergies Allergy Verified 09/17/16 16:45 Review of Systems ROS Statement: Those systems with pertinent positive or pertinent negative responses have been documented in the HPI. ROS Other: All systems not noted in ROS Statement are negative. Past Medical History Past Medical History: Chest Pain / Angina, Diabetes Mellitus, Hypertension, Myocardial Infarction ([place]) Additional Past Medical History / Comment(s): OTHER PAST MEDICAL HX INCLUDES:rt cataract, coronary artery disease with Stent to Proximal LAD 03/31/2015, diabetes mellitus, hypertension, hyperlipidemia, hypoglycemic events Last Myocardial Infarction Date:: 03/31/2015 History of Any Multi-Drug Resistant Organisms: None Reported Past Surgical History: Breast Surgery, Heart Catheterization With Stent Additional Past Surgical History / Comment(s): left breast bx-neg, buttocks sx- pt stated:" they told me I had gangrene and had sx to remove", lt cataract Past Anesthesia/Blood Transfusion Reactions: No Reported Reaction Date of Last Stent Placement:: unknown Past Psychological History: Depression Smoking Status: Never smoker Past Alcohol Use History: None Reported Past Drug Use History: None Reported - Past Family History Father Family Medical History: Unable to Obtain Mother Family Medical History: Diabetes Mellitus, Hypertension General Exam - General Exam Comments Initial Comments: GENERAL: Patient is well-developed and well-nourished. Patient is nontoxic and well- hydrated and is in mild distress. ENT: Neck is soft and supple. No significant lymphadenopathy is noted. Oropharynx is clear. Moist mucous membranes. Neck has full range of motion without eliciting any pain. EYES: The sclera were anicteric and conjunctiva were pink and moist. Extraocular movements were intact and pupils were equal round and reactive to light. Eyelids were unremarkable. PULMONARY: Unlabored respirations. Good breath sounds bilaterally. Diminished breath sounds in the right base CARDIOVASCULAR: There is a regular rate and rhythm without any murmurs gallops or rubs. ABDOMEN: Soft and nontender with normal bowel sounds. No palpable organomegaly was noted. There is no palpable pulsatile mass. SKIN: Skin is clear with no lesions or rashes and otherwise unremarkable. NEUROLOGIC: Patient is alert and oriented x3. Cranial nerves II through XII are grossly intact. Motor and sensory are also intact. Normal speech, volume and content. Symmetrical smile. MUSCULOSKELETAL: Normal extremities with adequate strength and full range of motion. 2+ edema bilaterally LYMPHATICS: No significant lymphadenopathy is noted PSYCHIATRIC: Normal psychiatric evaluation. Normal interpersonal interactions appears functionally intact in deals appropriately with others. No signs of depression. No signs of anxiety. Limitations: no limitations Course Vital Signs 09/17/16 09/17/16 09/17/16 15:37 15:59 16:59 Temperature 98.3 F Pulse Rate 58 L 63 Respiratory 17 18 16 Rate Blood Pressure 148/65 125/60 O2 Sat by Pulse 95 98 Oximetry 09/17/16 18:13 Temperature Pulse Rate 62 Respiratory Rate Blood Pressure 155/66 O2 Sat by Pulse Oximetry Medical Decision Making - Medical Decision Making EKG shows normal sinus rhythm at 60 bpm UT interval is 158 QRS is 164 QT interval is 508 QTC is 508. Patient has a left bundle branch block when compared to an old EKG there are no acute changes noted Patient's chest x-ray shows congestive heart failure. I gave the patient 40 Lasix in the emergency department. I spoke with the depression agreed to admit the patient admitted the patient consult cardiology. I continued Lasix on the floor as well as Nitropaste. - Lab Data Result diagrams: 09/17/16 17:30 09/17/16 17:30 Lab Results 09/17/16 09/17/16 09/17/16 Range/Units 17:30 17:30 17:30 WBC 7.8 (3.8-10.6) k/uL RBC 3.46 L (3.80-5.40) m/uL Hgb 9.8 L D (11.4-16.0) gm/dL Hct 31.2 L (34.0-46.0) % MCV 90.0 (80.0-100.0) fL MCH 28.3 (25.0-35.0) pg MCHC 31.4 (31.0-37.0) g/dL RDW 14.7 (11.5-15.5) % Plt Count 252 (150-450) k/uL Neutrophils % 75 % Lymphocytes % 16 % Monocytes % 6 % Eosinophils % 3 % Basophils % 0 % Neutrophils # 5.8 (1.3-7.7) k/uL Lymphocytes # 1.2 (1.0-4.8) k/uL Monocytes # 0.4 (0-1.0) k/uL Eosinophils # 0.2 (0-0.7) k/uL Basophils # 0.0 (0-0.2) k/uL Hypochromasia Moderate PT (9.0-12.0) sec INR (<1.1) APTT (22.0-30.0) sec Sodium 146 H (137-145) mmol/L Potassium 3.5 (3.5-5.1) mmol/L Chloride 111 H (98-107) mmol/L Carbon Dioxide 25 (22-30) mmol/L Anion Gap 10 mmol/L BUN 43 H (7-17) mg/dL Creatinine 1.50 H (0.52-1.04) mg/dL Est GFR (MDRD) Af Amer 42 (>60 ml/min/1.73 sqM) Est GFR (MDRD) Non-Af 35 (>60 ml/min/1.73 sqM) Glucose 106 H (74-99) mg/dL Calcium 9.1 (8.4-10.2) mg/dL Total Bilirubin 0.7 (0.2-1.3) mg/dL AST 21 (14-36) U/L ALT 26 (9-52) U/L Alkaline Phosphatase 84 (38-126) U/L Total Creatine Kinase 222 H (30-135) U/L CK-MB (CK-2) 0.6 (0.0-2.4) ng/mL CK-MB (CK-2) Rel Index 0.3 Troponin I <0.012 (0.000-0.034) ng/mL NT-Pro-B Natriuret Pep pg/mL Total Protein 7.0 (6.3-8.2) g/dL Albumin 3.9 (3.5-5.0) g/dL 09/17/16 09/17/16 Range/Units 17:30 17:30 WBC (3.8-10.6) k/uL RBC (3.80-5.40) m/uL Hgb (11.4-16.0) gm/dL Hct (34.0-46.0) % MCV (80.0-100.0) fL MCH (25.0-35.0) pg MCHC (31.0-37.0) g/dL RDW (11.5-15.5) % Plt Count (150-450) k/uL Neutrophils % % Lymphocytes % % Monocytes % % Eosinophils % % Basophils % % Neutrophils # (1.3-7.7) k/uL Lymphocytes # (1.0-4.8) k/uL Monocytes # (0-1.0) k/uL Eosinophils # (0-0.7) k/uL Basophils # (0-0.2) k/uL Hypochromasia PT 12.0 (9.0-12.0) sec INR 1.2 (<1.1) APTT 24.8 (22.0-30.0) sec Sodium (137-145) mmol/L Potassium (3.5-5.1) mmol/L Chloride (98-107) mmol/L Carbon Dioxide (22-30) mmol/L Anion Gap mmol/L BUN (7-17) mg/dL Creatinine (0.52-1.04) mg/dL Est GFR (MDRD) Af Amer (>60 ml/min/1.73 sqM) Est GFR (MDRD) Non-Af (>60 ml/min/1.73 sqM) Glucose (74-99) mg/dL Calcium (8.4-10.2) mg/dL Total Bilirubin (0.2-1.3) mg/dL AST (14-36) U/L ALT (9-52) U/L Alkaline Phosphatase (38-126) U/L Total Creatine Kinase (30-135) U/L CK-MB (CK-2) (0.0-2.4) ng/mL CK-MB (CK-2) Rel Index Troponin I (0.000-0.034) ng/mL NT-Pro-B Natriuret Pep 1820 pg/mL Total Protein (6.3-8.2) g/dL Albumin (3.5-5.0) g/dL Disposition Clinical Impression: Acute pulmonary edema Disposition: ADMITTED IP TO THIS HOSP Referrals: Eduin Moore MD [Primary Care Provider] - 1-2 days Time of Disposition: 19:07
[2016-09-17 17:52] LABS: Basophils % (A) 0 %; CH 27.8; Eosinophils # (A) 0.2 k/uL (0-0.7); Eosinophils % (A) 3 %; HCT 31.2 % (34.0-46.0); Hypochromasia Moderate; Luc # (Auto) 0.06; Luc % (Auto) 1; Lymphocytes # (A) 1.2 k/uL (1.0-4.8); Lymphocytes % (A) 16 %; MCH 28.3 pg (25.0-35.0); MCHC 31.4 g/dL (31.0-37.0); Mean Platelet Volume 6.9; Monocytes # (A) 0.4 k/uL (0-1.0); Monocytes % (A) 6 %; Neutrophils # (A) 5.8 k/uL (1.3-7.7); Neutrophils % (A) 75 %; RBC 3.46 m/uL (3.80-5.40); RDW 14.7 % (11.5-15.5); WBC 7.8 k/uL (3.8-10.6); WBC (Perox) 8.14
[2016-09-17 17:56] LABS: INR 1.2 (<1.1); Partial Thromboplastin Time 24.8 sec (22.0-30.0)
[2016-09-17 17:59] LABS: HGB 9.8 gm/dL (11.4-16.0)
[2016-09-17 18:04] LABS: Calcium 9.1 mg/dL (8.4-10.2); Potassium 3.5 mmol/L (3.5-5.1); Total Bilirubin 0.7 mg/dL (0.2-1.3)
[2016-09-17 18:11] LABS: Creatine Kinase 222 U/L (30-135)
[2016-09-17 18:22] LABS: Creatine Kinase MB 0.6 ng/mL (0.0-2.4); Troponin I <0.012 ng/mL (0.000-0.034)
--- NOTE | 2016-09-17 18:53 | XR ---
EXAMINATION TYPE: XR chest 2V DATE OF EXAM: 09/17/2016 COMPARISON: 08/14/2016 HISTORY: Hypertension. Difficulty breathing. TECHNIQUE: Frontal and lateral views of the chest are obtained. FINDINGS: Heart is enlarged. There is blunting of costophrenic angles. There is mild pulmonary conge stion. There is no pulmonary consolidation. There are chest leads. Bony thorax is intact. IMPRESSION: Mild heart failure and small pleural effusions. No significant change compared to old ex am.
[2016-09-17] MEDS: NITROGLYCERIN OINT 1 INCH/GM PACKET TOPICAL SCH (22:23)
[2016-09-18] MEDS: FUROSEMIDE 10 MG/ML 4 ML VIAL IV SCH ×3 (01:13→15:47)
[2016-09-18 05:52] LABS: Glucose,Whole Blood 94 mg/dL (75-99)
[2016-09-18] MEDS ORDERED: MECLIZINE 12.5 MG TAB PO PRN (07:59)
[2016-09-18] MEDS ORDERED: ISOSORBIDE MONONITRATE ER 30 MG TAB.ER.24H PO SCH (09:00)
[2016-09-18] MEDS ORDERED: LORATADINE 10 MG TAB PO SCH (09:00)
[2016-09-18] MEDS: PANTOPRAZOLE 40 MG TABLET PO SCH (10:07)
[2016-09-18] MEDS: LEVOTHYROXINE 75 MCG TAB PO SCH (10:07)
[2016-09-18] MEDS: ASPIRIN 81 MG CHEW PO SCH (10:08)
[2016-09-18] MEDS: CITALOPRAM HYDROBROMIDE 20 MG TAB PO SCH (10:08)
[2016-09-18] MEDS: NITROGLYCERIN OINT 1 INCH/GM PACKET TOPICAL SCH ×2 (10:14→19:37)
[2016-09-18] MEDS: LOSARTAN 50 MG TAB PO SCH (10:21)
[2016-09-18] MEDS: INSULIN GLARGINE 100 UNIT/ML 10 ML VIAL SQ SCH ×2 (10:21→22:03)
[2016-09-18] MEDS: SPIRONOLACTONE 25 MG TAB PO SCH (10:21)
[2016-09-18 11:51] LABS: Glucose,Whole Blood 126 mg/dL (75-99)
[2016-09-18 11:52] VITALS: BMI 46.2
[2016-09-18] MEDS: INSULIN LISPRO (humaLOG) 300 UNIT/3 ML VIAL SQ SCH ×2 (12:22→18:17)
--- NOTE | 2016-09-18 12:52 | P.CRDCN ---
History of Present Illness Consult date: 09/18/16 Requesting physician: Johnny Capone Reason for Consult (text): Chest pain and shortness of breath Chief complaint: Chest pain and shortness of breath History of present illness: This is a pleasant 65-year-old female with history of hypertension, hyperlipidemia, diabetes, prior LAD stent, chronic renal insufficiency, who follows regularly with Dr. Wayne in the office. According to the patient she was advised to undergo cardiac catheterization by Dr. Nagy, this was deferred because of her kidneys. She presents to the hospital on this occasion with symptoms of intermittent chest discomfort with radiation down both arms with associated shortness of breath. She also states that she is put on significant amount of swelling over the past few weeks. Most recent echocardiogram with Doppler study was performed in August of this year which revealed an ejection fraction of 55-60% with mild to moderate MR and mild to moderate pulmonary hypertension. The pressure on arrival 148/65 with heart rate in the 50s. Temperature 98.3. Hemoglobin 9.8, potassium 3.5, BUN 43, creatinine 1.5. Troponin 0.012. BNP level 1820. EKG on arrival showed a normal sinus rhythm with a left bundle-branch block pattern. Chest x-ray revealed mild congestive heart failure and small pleural effusions. Patient was initiated on IV Lasix in the emergency room, weight is down 2 kg. Patient continues to complain of some mild shortness of breath this morning, positive PND and orthopnea. Past Medical History Past Medical History: Chest Pain / Angina, Diabetes Mellitus, Hypertension, Myocardial Infarction ([place]) Additional Past Medical History / Comment(s): right cataract, coronary artery disease with Stent to Proximal LAD 03/31/2015, diabetes mellitus, hypertension, hyperlipidemia, hypoglycemic events Last Myocardial Infarction Date:: 03/31/2015 History of Any Multi-Drug Resistant Organisms: None Reported Past Surgical History: Breast Surgery, Heart Catheterization With Stent Additional Past Surgical History / Comment(s): left breast bx-neg, buttocks sx- pt stated:" they told me I had gangrene and had sx to remove", lt cataract Past Anesthesia/Blood Transfusion Reactions: No Reported Reaction Date of Last Stent Placement:: unknown Past Psychological History: Depression Smoking Status: Never smoker Past Alcohol Use History: None Reported Past Drug Use History: None Reported - Past Family History Father Family Medical History: Unable to Obtain Mother Family Medical History: Diabetes Mellitus, Hypertension Medications and Allergies Home Medications Medication Instructions Recorded Confirmed Type Multivitamins, Thera [Multivitamin 1 tab PO DAILY 07/02/15 09/17/16 History (formulary)] Atorvastatin [Lipitor] 80 mg PO HS 08/01/15 09/17/16 History Carvedilol [Coreg*] 37.5 mg PO BID-W/MEALS 08/01/15 09/17/16 History Isosorbide Mononitrate ER [Imdur] 30 mg PO QAM 08/01/15 09/17/16 History Levothyroxine Sodium [Synthroid] 75 mcg PO DAILY 05/01/16 09/17/16 History amLODIPine [Norvasc] 10 mg PO HS 05/23/16 09/17/16 History Pantoprazole [Protonix] 40 mg PO DAILY 08/11/16 09/17/16 History Insulin Glargine [Lantus] 20 unit SQ BID 09/17/16 09/17/16 History Loratadine [Claritin] 10 mg PO DAILY 09/17/16 09/17/16 History Losartan Potassium [Cozaar] 100 mg PO DAILY 09/17/16 09/17/16 History Meclizine HCl 12.5 mg PO BID PRN 09/17/16 09/17/16 History Spironolactone [Aldactone] 12.5 mg PO DAILY 09/17/16 09/17/16 History Torsemide [Demadex] 20 mg PO BID 09/17/16 09/17/16 History Allergies Allergy/AdvReac Type Severity Reaction Status Date / Time No Known Allergies Allergy Verified 09/18/16 00:58 Physical Exam Vitals: Vital Signs Temp Pulse Pulse Resp BP BP Pulse Ox 09/18/16 04:00 97.8 F 59 L 17 141/64 95 09/18/16 00:00 98.3 F 61 18 141/64 95 09/17/16 22:14 97.9 F 62 16 150/68 97 09/17/16 21:08 98.6 F 61 16 177/76 93 L 09/17/16 19:21 97.6 F 62 18 165/70 95 09/17/16 18:13 62 155/66 09/17/16 16:59 63 16 125/60 98 09/17/16 15:59 18 09/17/16 15:37 98.3 F 58 L 17 148/65 95 Intake and Output 09/17/16 09/18/16 09/18/16 22:59 06:59 14:59 Intake Total 100 220 Output Total 450 Balance -350 220 Intake: Oral 100 220 Output: Urine 450 Other: Voiding Method Toilet # Voids 1 1 Weight 113.852 kg 111 kg 111 kg Patient Weight 09/19/16 06:59 Weight 111 kg PHYSICAL EXAMINATION: HEENT: Head is atraumatic, normocephalic. Pupils equal, round. Neck is supple. There is elevated jugular venous pressure. HEART EXAMINATION: Heart S1 and S2 systolic murmur is heard. CHEST EXAMINATION: Lungs reveal diminished air entry to bilateral bases ABDOMEN: Soft,obese, nontender. Bowel sounds are heard. No organomegaly noted. EXTREMITIES: 2+ peripheral pulses with 1+ evidence of peripheral edema and no calf tenderness noted. NEUROLOGIC patient is awake, alert and oriented -3. . Results 09/17/16 17:30 09/17/16 17:30 Cardiac Enzymes 09/17/16 09/17/16 Range/Units 17:30 17:30 AST 21 (14-36) U/L CK-MB (CK-2) 0.6 (0.0-2.4) ng/mL Troponin I <0.012 (0.000-0.034) ng/mL Coagulation 09/17/16 Range/Units 17:30 PT 12.0 (9.0-12.0) sec APTT 24.8 (22.0-30.0) sec CBC 09/17/16 Range/Units 17:30 WBC 7.8 (3.8-10.6) k/uL RBC 3.46 L (3.80-5.40) m/uL Hgb 9.8 L D (11.4-16.0) gm/dL Hct 31.2 L (34.0-46.0) % Plt Count 252 (150-450) k/uL Comprehensive Metabolic Panel 09/17/16 Range/Units 17:30 Sodium 146 H (137-145) mmol/L Potassium 3.5 (3.5-5.1) mmol/L Chloride 111 H (98-107) mmol/L Carbon Dioxide 25 (22-30) mmol/L BUN 43 H (7-17) mg/dL Creatinine 1.50 H (0.52-1.04) mg/dL Glucose 106 H (74-99) mg/dL Calcium 9.1 (8.4-10.2) mg/dL AST 21 (14-36) U/L ALT 26 (9-52) U/L Alkaline Phosphatase 84 (38-126) U/L Total Protein 7.0 (6.3-8.2) g/dL Albumin 3.9 (3.5-5.0) g/dL Current Medications Generic Name Dose Route Start Last Admin Trade Name Freq PRN Reason Stop Dose Admin Amlodipine Besylate 10 mg 09/18/16 21:00 Norvasc PO HS [facility] Aspirin 81 mg 09/18/16 09:00 09/18/16 10:08 Aspirin PO 81 mg DAILY [facility] Administration Atorvastatin Calcium 80 mg 09/18/16 21:00 Lipitor PO HS [facility] Carvedilol 37.5 mg 09/18/16 17:30 Coreg PO BID-W/MEALS [facility] Citalopram Hydrobromide 20 mg 09/18/16 09:00 09/18/16 10:08 Celexa PO 20 mg DAILY [facility] Administration Furosemide 40 mg 09/18/16 00:00 09/18/16 10:05 Lasix IV 40 mg Q8HR [facility] Administration Insulin Glargine 20 unit 09/18/16 09:00 09/18/16 10:21 Lantus SQ 20 unit BID [facility] Administration Insulin Human Lispro 4 unit 09/18/16 12:30 09/18/16 12:22 Humalog SQ 4 unit AC-TID [facility] Administration Isosorbide Mononitrate 30 mg 09/18/16 09:00 09/18/16 10:08 Imdur PO 30 mg QAM [facility] Administration Levothyroxine Sodium 75 mcg 09/18/16 09:00 09/18/16 10:07 Synthroid PO 75 mcg DAILY@0630 [facility] Administration Loratadine 10 mg 09/18/16 09:00 09/18/16 10:08 Claritin PO 10 mg DAILY [facility] Administration Losartan Potassium 100 mg 09/18/16 09:00 09/18/16 10:21 Cozaar PO 100 mg DAILY [facility] Administration Meclizine HCl 12.5 mg 09/18/16 07:59 Antivert PO BID PRN DIZZINESS Nitroglycerin 1 inch 09/17/16 22:00 09/18/16 10:14 Nitro-Bid Oint TOPICAL Not Given QID [facility] Pantoprazole Sodium 40 mg 09/18/16 09:00 09/18/16 10:07 Protonix PO 40 mg AC-BRKFST [facility] Administration Spironolactone 12.5 mg 09/18/16 09:00 09/18/16 10:21 Aldactone PO 12.5 mg DAILY [facility] Administration Intake and Output 09/17/16 09/18/16 09/18/16 22:59 06:59 14:59 Intake Total 100 220 Output Total 450 Balance -350 220 Intake: Oral 100 220 Output: Urine 450 Other: Voiding Method Toilet # Voids 1 1 Weight 113.852 kg 111 kg 111 kg Patient Weight 09/19/16 06:59 Weight 111 kg 09/17/16 17:30 09/17/16 17:30 EKG Interpretations (text) EKG shows a normal sinus rhythm with a left bundle-branch block pattern Assessment and Plan Plan: Assessment and plan #1 diastolic congestive heart failure acute on chronic #2 symptoms suggestive of unstable angina, troponin 0.012. #3 known history of coronary artery disease with prior LAD stenting in 2014 #4 chronic anemia #5 acute on chronic renal failure, creatinine 1.5 #6 hyperlipidemia #7 hypertension #8 diabetes #9 hypokalemia Plan Patient had a recent echocardiogram with Doppler study performed in August which revealed an ejection fraction of 55-60% with mild to moderate MR and mild to moderate pulmonary hypertension, we will not repeat an echo this admission. We will continue current dose of IV Lasix. Replace potassium. Further recommendations to follow. DNP note has been reviewed, I agree with a documented findings and plan of care. Patient was seen and examined.
[2016-09-18] MEDS ORDERED: POTASSIUM CHLORIDE ER 20 MEQ TAB.ER PO SCH (14:00)
--- NOTE | 2016-09-18 14:05 | P.PN ---
Progress Note - Text This is an addendum to the dictated cardiology consultation. The patient has a known history of CAD, status post stenting of the LAD by Dr. EDWARD Hubbard and has been followed by Dr. Nagy. She has symptoms of chest discomfort but she presents with significant worsening dyspnea and peripheral edema. The discomfort at home is on and off and at times radiates to both arms. She is in sinus mechanism but has an underlying left bundle branch block which is chronic. The patient is started on intravenous diuretics, we will continue the risk for medical regimen and follow her renal functions closely. If her failure resolves and her renal functions are stable then I would recommend to proceed with coronary angiography to assess her status and guide her treatment. Thank you for this consult we will follow with you.
[2016-09-18] MEDS: ISOSORBIDE MONONITRATE ER 30 MG TAB.ER.24H PO SCH (15:12)
[2016-09-18] MEDS: POTASSIUM CHLORIDE ER 20 MEQ TAB.ER PO SCH ×3 (15:47→20:09)
[2016-09-18 17:04] LABS: Glucose,Whole Blood 123 mg/dL (75-99)
[2016-09-18] MEDS: CARVEDILOL 12.5 MG TAB PO SCH (18:16)
[2016-09-18] MEDS: ATORVASTATIN 80 MG TAB PO SCH (20:08)
[2016-09-18] MEDS: FUROSEMIDE 250 MG in SODIUM CHLORIDE 0.9% 225 ML IVP SCH (20:08)
[2016-09-18] MEDS: amLODIPine 10 MG TAB PO SCH (20:08)
[2016-09-18 21:20] LABS: Glucose,Whole Blood 131 mg/dL (75-99)
--- NOTE | 2016-09-18 22:23 | HP ---
DATE OF ADMISSION: 09/17/2016 PRESENTING COMPLAINT: Short of breath. HISTORY OF PRESENTING COMPLAINT: This is a pleasant 65-year-old patient well known to me from prior admissions whose chronic stable medical conditions include hypertensive heart disease, moderate secondary pulmonary hypertension, moderate mitral regurgitation, coronary artery disease with stent in 2014, hyperlipidemia, diabetes mellitus type 2, obesity and depression. Patient has had some chest pressure off and on, worsening short of breath, abdominal distention, lower extremity edema. Patient does use 3 pillows at night. Patient gets very easily short-winded in taking a couple of steps. Multiple family is at the bedside. Started on IV Lasix in the ER. REVIEW OF SYSTEMS: CONSTITUTIONAL: Tired. HEENT: None. RESPIRATORY: As above. CARDIOVASCULAR: As above. GASTROINTESTINAL: None. GENITOURINARY: None. MUSCULOSKELETAL: None. DERMATOLOGIC: None. HEMATOLOGIC: None. LYMPHATIC: None. PSYCHIATRY: None. NEUROLOGICAL: None. PAST MEDICAL HISTORY: Congestive heart failure from diastolic dysfunction, EF 55%; hypertensive heart disease, moderate secondary pulmonary hypertension, moderate mitral regurgitation, coronary artery disease with stent to the LAD, hyperlipidemia, diabetes mellitus type 2, morbid obesity and depression. PAST SURGICAL HISTORY: Breast surgery, cardiac cath with stent, left breast biopsy negative, buttock surgery for gangrene. SOCIAL HISTORY: . No smoking. No alcohol. FAMILY HISTORY: Reviewed, noncontributory to presentation. HOME MEDICATIONS: 1. Demadex 20 mg b.i.d. 2. Norvasc 10 mg q.h.s. 3. Aldactone 12.5 p.o. daily. 4. Meclizine 12.5 p.o. b.i.d. p.r.n. 5. Cozaar 100 mg p.o. daily. 6. Lantus 5 units subcu b.i.d. 7. Humalog 4 units subcu before meals t.i.d. 8. Claritin 10 mg p.o. daily. 9. Nitrostat 0.4 sublingual q.5 p.r.n. 10. Protonix 40 mg p.o. daily. 11. Multivitamin 1 tablet p.o. daily. 12. Synthroid 75 mcg p.o. daily. 13. Imdur ER 30 mg p.o. daily. 14. Celexa 20 mg p.o. daily. 15. Coreg 37.5 p.o. b.i.d. with meals. 16. Lipitor 80 mg q.h.s. 17. Aspirin 81 mg p.o. daily. ALLERGIES: None. On examination, vital signs on presentation: Temperature 97.6, pulse 82, respirations are 22, blood pressure 165/70, pulse ox 95% on room air. GENERAL APPEARANCE: Well built, BMI of 46. Lying in bed, short of breath. EYES: Pupils equal. Conjunctivae normal. HEENT: Oral cavity normal. NECK: JVD raised. Mass not palpable. RESPIRATORY: Effort increased. LUNGS: Diminished breath sounds with some crackles at the bases. CARDIOVASCULAR: First and second sounds normal. Gross edema present. ABDOMEN: Distended, soft. Liver and spleen not palpable. LYMPHATIC: No lymph node palpable in the neck and axilla. PSYCHIATRY: Alert and oriented x3. Mood and affect normal. NEUROLOGICAL: Pupils equal. Cranial nerves grossly intact. Power and sensation grossly intact. INVESTIGATIONS: White count 7.8, hemoglobin 9.8. Potassium 3.5, BUN 43 creatinine 1.5. Chest x-ray shows pulmonary edema with fluid in the fissures. Accu-Cheks are noted. ASSESSMENT: 1. Acute on chronic congestive heart failure exacerbation from diastolic dysfunction, ejection fraction 55%, underlying coronary artery disease. 2. Hypertensive heart disease. 3. Moderate secondary pulmonary hypertension from underlying congestive heart failure. 4. Moderate mitral regurgitation, nonrheumatic. 5. Coronary artery disease with stent to the left anterior descending artery in December 2014. 6. Hyperlipidemia. 7. Diabetes mellitus type 2, chronically on insulin. 8. Morbid obesity, body mass index more than 35. 9. Depression, not otherwise specified. 10. Chronic kidney disease stage 3 from diabetic nephropathy and hypertensive nephrosclerosis. 11. Unstable angina in a patient with known coronary artery disease. PLAN: Patient's home medications are resumed. Cardiology was consulted. Given his renal function, will put the patient on a Lasix drip, monitor I's and O's strictly, keep a close eye on her electrolytes. Care was discussed with the patient and at the bedside.
[2016-09-19 06:12] LABS: Glucose,Whole Blood 100 mg/dL (75-99)
[2016-09-19 07:06] LABS: Calcium 9.2 mg/dL (8.4-10.2); Potassium 3.8 mmol/L (3.5-5.1)
[2016-09-19] MEDS: INSULIN LISPRO (humaLOG) 300 UNIT/3 ML VIAL SQ SCH ×3 (07:29→17:34)
[2016-09-19] MEDS: CARVEDILOL 12.5 MG TAB PO SCH ×2 (07:29→16:33)
[2016-09-19] MEDS: PANTOPRAZOLE 40 MG TABLET PO SCH (07:29)
[2016-09-19] MEDS: LEVOTHYROXINE 75 MCG TAB PO SCH (07:29)
[2016-09-19] MEDS: ISOSORBIDE MONONITRATE ER 30 MG TAB.ER.24H PO SCH (09:23)
[2016-09-19] MEDS: LOSARTAN 50 MG TAB PO SCH (09:24)
[2016-09-19] MEDS: SPIRONOLACTONE 25 MG TAB PO SCH (09:24)
[2016-09-19] MEDS: ASPIRIN 81 MG CHEW PO SCH (09:24)
[2016-09-19] MEDS: CITALOPRAM HYDROBROMIDE 20 MG TAB PO SCH (09:25)
[2016-09-19] MEDS: INSULIN GLARGINE 100 UNIT/ML 10 ML VIAL SQ SCH ×2 (09:32→21:36)
[2016-09-19 11:47] LABS: Glucose,Whole Blood 140 mg/dL (75-99)
--- NOTE | 2016-09-19 12:23 | P.PN ---
Subjective Principal diagnosis: Acute Pulmonary Edema This is a pleasant 65-year-old female with a history of hypertension, hyperlipidemia, diabetes, prior LAD stent, chronic renal insufficiency, who follows really with Dr. Hunt in the office. He did previously been advised to undergo cardiac catheterization by Dr. Wayne however this was deferred because of poor renal function. Due to the hospital on this occasion with symptoms of intermittent chest discomfort with radiation down both arms as well as shortness of breath. She also has noticed significant amount of swelling over the past few weeks in her lower extremities. Laboratory values today show BUN of 35 creatinine 1.45. Patient had been started on a Lasix drip at 10 mg an hour. Upon examination, she is breathing somewhat better, short of breath with activity but denies orthopnea or PND. She continues to have significant edema. Her weight today is down 1 kg from yesterday. Objective - Vital Signs Vital signs: Vital Signs Temp 97.2 F L 09/19/16 08:00 Pulse 59 L 09/19/16 08:00 Resp 20 09/19/16 08:00 BP 148/77 09/19/16 08:00 Pulse Ox 92 L 09/19/16 08:00 Intake & Output 09/18/16 09/19/16 09/19/16 18:59 06:59 18:59 Intake Total 920 60 180 Output Total 450 450 Balance 920 -390 -270 Weight 111 kg 110.2 kg Intake: IV 60 Furosemide 250 mg In 60 Sodium Chloride 0.9% 225 ml @ 10 MG/HR 10 mls/hr IVP .Q24H [facility] Rx#: [id number] Oral 920 180 Output: Urine 450 450 Other: Voiding Method Toilet # Voids 1 1 - Exam PHYSICAL EXAMINATION: HEENT: Head is atraumatic, normocephalic. Pupils equal, round. Neck is supple. There is no elevated jugular venous pressure. HEART EXAMINATION: Heart sounds regular, S1 and S2 with a systolic murmur. CHEST EXAMINATION: Lungs reveal diminished air entry bilaterally. No chest wall tenderness is noted on palpation or with deep breathing. ABDOMEN: Soft, obese, nontender. Bowel sounds are heard. No organomegaly noted. EXTREMITIES: 2+ peripheral pulses with evidence of 1-2+ peripheral edema and no calf tenderness noted. NEUROLOGIC patient is awake, alert and oriented x3. . - Labs CBC & Chem 7: 09/17/16 17:30 09/19/16 06:16 Labs: Abnormal Lab Results - Last 24 Hours (Table) 09/18/16 09/18/16 09/19/16 Range/Units 16:54 21:07 06:10 Sodium (137-145) mmol/L Chloride (98-107) mmol/L BUN (7-17) mg/dL Creatinine (0.52-1.04) mg/dL POC Glucose (mg/dL) 123 H 131 H 100 H (75-99) mg/dL 09/19/16 09/19/16 Range/Units 06:16 11:45 Sodium 147 H (137-145) mmol/L Chloride 110 H (98-107) mmol/L BUN 35 H (7-17) mg/dL Creatinine 1.45 H (0.52-1.04) mg/dL POC Glucose (mg/dL) 140 H (75-99) mg/dL Assessment and Plan Plan: Assessment and plan #1 diastolic congestive heart failure, acute on chronic #2 symptoms suggestive of unstable angina, troponin less than 0.012 #3 known history of coronary artery disease with prior LAD stenting in 2014, recommended cardiac catheterization which has been deferred due to elevated BUN and creatinine #4 chronic anemia #5 acute on chronic renal failure, creatinine today 1.45 #6 hyperlipidemia #7 hypertension #8 diabetes #9 hypokalemia From business consult perspective, continue IV Lasix drip for now. We will follow her renal functions closely. Once her failure resolves and if her renal function are stable likely recommend proceeding with coronary angiography. Further recommendations to follow. STAFFING ADMINISTRATOR note has been reviewed, I agree with a documented findings and plan of care. Patient was seen and examined.
[2016-09-19 16:43] LABS: Glucose,Whole Blood 140 mg/dL (75-99)
[2016-09-19] MEDS: ATORVASTATIN 80 MG TAB PO SCH (19:55)
[2016-09-19] MEDS: FUROSEMIDE 250 MG in SODIUM CHLORIDE 0.9% 225 ML IVP SCH (19:55)
[2016-09-19] MEDS: amLODIPine 10 MG TAB PO SCH (19:55)
--- NOTE | 2016-09-19 20:01 | P.PN ---
Progress Note - Text DATE OF SERVICE: 09/19/2016 PRESENTING COMPLAINT: Short of breath INTERVAL HISTORY: This is 65-year-old female who presented with congestive heart failure exacerbation. Lasix drip continues, breathing is better. Patient is able to ambulate with assistance to and from the bathroom, tolerating her diet, has not yet had a bowel movement. REVIEW OF SYSTEMS: Done for constitutional ,cardiovascular, GI, pulmonary with relevant findings as above. CURRENT MEDICATIONS Norvasc, Lipitor, Coreg, Imdur, Synthroid, Cozaar, Aldactone. PHYSICAL EXAM: VITAL SIGNS: Temperature 97.2, pulse 59 respiratory rate 20 pressure 148/77, oxygen saturation 92% on room air GENERAL APPEARANCE. Lying in bed, appears comfortable. EYES: Pupils equal. Conjunctiva normal. NECK: JVD raised. Mass not palpable. RESPIRATORY: Respiratory effort increased. Lungs diminished with some crackles noted to the bases. CARDIOVASCULAR: First and second sounds normal. Gross edema present.. ABDOMEN: Soft. Liver and spleen not palpable. No tenderness. No mass palpable. PSYCHIATRY: Alert and oriented x3. Mood and affect normal. INVESTIGATIONS: Sodium 147, potassium 3.8, BUN 35, creatinine 1.45, Accu-Cheks noted. ASSESSMENT: Acute on chronic congestive heart failure exacerbation from diastolic dysfunction, ejection fraction 55%, underlying coronary artery disease. Hypertensive heart disease. Moderate secondary pulmonary hypertension from underlying congestive heart failure. Moderate mitral regurgitation, nonrheumatic. Coronary artery disease with stent to the left anterior descending artery in December 2014. Hyperlipidemia. Diabetes mellitus type 2, chronically on insulin. Morbid obesity, body mass index of more than 35. Depression, not otherwise specified. Chronic kidney disease stage III from diabetic nephropathy and hypertensive nephrosclerosis. Unstable angina in a patient with known coronary artery disease. PLAN: Continue patient on Lasix drip, monitor daily labs closely, encourage mobility. We'll monitor closely. GAS STATION ATTENDANT statement: Patient was seen and examined by nurse practitioner Linda Pride in all elements of the case discussed with attending is Dr. Capone
[2016-09-19 20:56] LABS: Glucose,Whole Blood 136 mg/dL (75-99)
[2016-09-20 06:03] LABS: Glucose,Whole Blood 76 mg/dL (75-99)
[2016-09-20 06:18] LABS: Basophils % (A) 0 %; CH 27.6; CHCM 31.7; Eosinophils # (A) 0.1 k/uL (0-0.7); Eosinophils % (A) 2 %; HCT 30.2 % (34.0-46.0); HDW 3.13; HGB 9.5 gm/dL (11.4-16.0); Hypochromasia Slight; Luc # (Auto) 0.07; Luc % (Auto) 1; Lymphocytes # (A) 1.3 k/uL (1.0-4.8); Lymphocytes % (A) 19 %; MCH 27.7 pg (25.0-35.0); MCHC 31.6 g/dL (31.0-37.0); MCV 87.6 fL (80.0-100.0); Mean Platelet Volume 6.5; Monocytes # (A) 0.4 k/uL (0-1.0); Monocytes % (A) 6 %; Neutrophils # (A) 4.7 k/uL (1.3-7.7); Neutrophils % (A) 72 %; RBC 3.45 m/uL (3.80-5.40); RDW 14.6 % (11.5-15.5); WBC 6.6 k/uL (3.8-10.6); WBC (Perox) 7.12
[2016-09-20 06:52] LABS: Calcium 9.4 mg/dL (8.4-10.2); Potassium 3.6 mmol/L (3.5-5.1)
[2016-09-20] MEDS: LEVOTHYROXINE 75 MCG TAB PO SCH (07:27)
[2016-09-20] MEDS: PANTOPRAZOLE 40 MG TABLET PO SCH (07:27)
[2016-09-20] MEDS: INSULIN LISPRO (humaLOG) 300 UNIT/3 ML VIAL SQ SCH ×3 (07:27→17:15)
[2016-09-20] MEDS: CARVEDILOL 12.5 MG TAB PO SCH ×2 (07:27→17:19)
--- NOTE | 2016-09-20 07:51 | PN ---
DATE OF SERVICE: 09/19/2016 ATTENDING NOTE: The patient was seen and examined by me earlier today. Reviewed the note of my nurse practitioner, Ms. Pride. Reviewed, discussed and additional findings below. This patient presented with CHF exacerbation. Started on Lasix drip. Patient seems to be drinking quite a bit of fluid. at the bedside. Still short of breath. On examination, blood pressure 108/77, pulse ox 92% on room air. LUNGS: Diminished breath sounds. Increased JVD. Edema is present. INVESTIGATIONS: BUN 35, creatinine 1.45. ASSESSMENT: Chronic congestive heart failure from diastolic dysfunction; ejection fraction 55%, from underlying coronary artery disease, slow to respond. PLAN: Continue the patient on Lasix drip. Follow electrolytes closely. Care was discussed the patient and at the bedside. Will follow.
[2016-09-20] MEDS: CITALOPRAM HYDROBROMIDE 20 MG TAB PO SCH (08:41)
[2016-09-20] MEDS: INSULIN GLARGINE 100 UNIT/ML 10 ML VIAL SQ SCH (08:41)
[2016-09-20] MEDS: ASPIRIN 81 MG CHEW PO SCH (08:41)
[2016-09-20] MEDS: ISOSORBIDE MONONITRATE ER 30 MG TAB.ER.24H PO SCH (08:41)
[2016-09-20] MEDS: LOSARTAN 50 MG TAB PO SCH (08:42)
[2016-09-20] MEDS: SPIRONOLACTONE 25 MG TAB PO SCH (08:42)
[2016-09-20 11:22] LABS: Glucose,Whole Blood 85 mg/dL (75-99)
[2016-09-20] MEDS ORDERED: Potassium Replacement Protocol 1 EACH MISC MISCELLANE PRN ×2 (11:28→11:37)
[2016-09-20] MEDS ORDERED: POTASSIUM CHLORIDE ER 20 MEQ TAB.ER PO SCH (12:00)
[2016-09-20] MEDS ORDERED: POTASSIUM CHLORIDE ER 20 MEQ TAB.ER PO ONE (12:00)
[2016-09-20] MEDS: FUROSEMIDE 250 MG in SODIUM CHLORIDE 0.9% 225 ML IVP SCH (14:17)
--- NOTE | 2016-09-20 14:44 | P.PN ---
Progress Note - Text DATE OF SERVICE: 09/20/2016 PRESENTING COMPLAINT: Short of breath INTERVAL HISTORY: This is 65-year-old female who presented with congestive heart failure exacerbation. Lasix drip continues, breathing is better. Patient is able to ambulate with assistance to and from the bathroom, tolerating her diet, has not yet had a bowel movement. Discussion had and Questions answered with patient and at the bedside. REVIEW OF SYSTEMS: Done for constitutional ,cardiovascular, GI, pulmonary with relevant findings as above. CURRENT MEDICATIONS Norvasc, Lipitor, Coreg, Imdur, Synthroid, Cozaar, Aldactone. PHYSICAL EXAM: VITAL SIGNS: Temperature 96.8, pulse 54, respiratory rate 18, blood pressure 145/70, oxygen saturation 94% on room air. GENERAL APPEARANCE. Lying in bed, appears comfortable. EYES: Pupils equal. Conjunctiva normal. NECK: JVD raised. Mass not palpable. RESPIRATORY: Respiratory effort increased. Lungs diminished with some crackles noted to the bases. CARDIOVASCULAR: First and second sounds normal. Gross edema present.. ABDOMEN: Soft. Liver and spleen not palpable. No tenderness. No mass palpable. PSYCHIATRY: Alert and oriented x3. Mood and affect normal. INVESTIGATIONS: Hemoglobin 9.5, platelet count 2:30, sodium 148, potassium 3.6, BUN 34, creatinine 1.30, Accu-Cheks noted. ASSESSMENT: Acute on chronic congestive heart failure exacerbation from diastolic dysfunction, ejection fraction 55%, underlying coronary artery disease, slow to respond Hypertensive heart disease. Moderate secondary pulmonary hypertension from underlying congestive heart failure. Moderate mitral regurgitation, nonrheumatic. Coronary artery disease with stent to the left anterior descending artery in December 2014. Hyperlipidemia. Diabetes mellitus type 2, chronically on insulin. Morbid obesity, body mass index of more than 35. Depression, not otherwise specified. Chronic kidney disease stage III from diabetic nephropathy and hypertensive nephrosclerosis. Unstable angina in a patient with known coronary artery disease. PLAN: Continue patient on Lasix drip, monitor daily labs closely, encourage mobility. Discussed plan of care with family and patient they are agreeable. We'll monitor closely. SKEIN DRIER statement: Patient was seen and examined by nurse practitioner Linda Pride in all elements of the case discussed with attending is Dr. Capone
--- NOTE | 2016-09-20 15:07 | P.PN ---
Progress Note - Text DATE OF SERVICE: 09/20/2016 PRESENTING COMPLAINT: Shortness of breath, cardiac arrest INTERVAL HISTORY: This patient presented after developing an acute exacerbation of CHF and subsequent cardiac arrest. Sedation lifted for about 24 hours, only opens eyes to name no other responsiveness. ICU sieve maker returned patient to propofol for sedation due to asynchrony with the vent. Responding well to nitroprusside IV, is also on many medications in addition to that for blood pressure control detailed below. CT of the brain did not show any acute process however belief is that hypertension is central in nature. Breathing comfortably on the vent FiO2 50%, PEEP of 5, rate of 24. Ventilator settings: Assist control/volume control, rate 24, FiO2 50%, PEEP 5. MEDICATIONS: Propofol, insulin drip, Protonix, tube feeding at 34 ml/hr. Catapres 0.2 mg, nitroprusside drip, Norvasc, Coreg, Lasix, labetalol, Imdur, Solu-Medrol. Heart rhythm: sinus bradycardia rate 40's-50's REVIEW OF SYSTEMS: Patient intubated. CURRENT MEDICATIONS As detailed above PHYSICAL EXAM: VITAL SIGNS: 98.4, pulse 89, respiratory rate 24, blood pressure 143/47, oxygen saturation 93% on 50% FiO2 mechanical ventilation. GENERAL APPEARANCE:Lying in bed, breathing comfortably on the vent. EYES: Pupils equal. Conjunctiva normal. NECK: JVD unable to assess. Mass not palpable. RESPIRATORY: Respiratory effort increased, on mechanical ventilation Lungs decreased breath sounds secretions noted , CARDIOVASCULAR: First and second sounds noted. Moderate edema. ABDOMEN: Soft. Distended, Liver and spleen not palpable. No tenderness. No mass palpable. PSYCHIATRY: Unable to assess NEUROLOGICAL: Pupils sluggish secondary to sedation, opens eyes to noxious stimuli. INVESTIGATIONS: Hemoglobin 10.6, platelet count 154, sodium 144, potassium 4.6, BUN 116, creatinine 2.80. Chest x-ray evidence of bilateral pleural effusions and atelectasis infiltrates at the bases. Computed tomography scan: No evidence of sulcal effacement tiny remote lacunar infarct right basal ganglia. ASSESSMENT: 1. Acute on chronic congestive heart failure exacerbation from diastolic dysfunction, secondary to coronary artery disease, ejection fraction 55% with a recent cardiac catheterization,stabilized 2. Cardiac arrest in a patient with underlying coronary artery disease. 3. Chronic obstructive pulmonary disease and an ex-smoker. 4. Chronic kidney disease stage III from diabetic nephropathy and hypertensive nephrosclerosis. 5. Chronic menorrhagia pending outpatient surgery. 6. Chronic diverticulosis. 7. 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 8. Malignant hypertension, on IV nipride. 9. Right arm weakness from old stroke. 10. Diabetes mellitus type 2 chronically on insulin. 11. Obesity, body mass index greater than 40, morbid type. 12. Coronary artery disease with stent to the left anterior descending artery and right coronary artery. 13. Hyperlipidemia. 14. Fibromyalgia. 15. Primary osteoarthritis of multiple joints bilateral 16. Urinary stress incontinence 17. Depression not otherwise specified 18. Acute hypoxic respiratory failure secondary to acute pulmonary edema from underlying coronary artery disease and congestive heart failure, on ventilator support, slow to wean. 19. Recurrent chronic blood loss anemia secondary to menorrhagia. 20. Acute cardiogenic shock from underlying coronary artery disease, slowly improving. 21. Urinary tract infection, secondary to outflow obstruction, organism Klebsiella pneumoniae, present on admission. 22. Acute blood loss anemia, 10.4 hemoglobin , secondary to chronic menorrhagia 1 unit packed red cells given improving 23. Acute renal failure likely secondary to ATN/prerenal, sepsis and shock, slowly improving. 24. Multiple medical problems. 25. Acute respiratory failure secondary to congestive heart failure, coronary artery disease, with ventilator support. 26. Metabolic acidosis, likely due to renal failure, acute tubular necrosis, sodium bicarbonate given by nephrology. PLAN: Continue current medications, and monitor closely renal status, neurologic status, possibility of trach placement or terminal wean based on ongoing discussion with family. We will continue to follow closely. LIFTER DRIVER statement: Patient was seen and examined by nurse practitioner Linda Pride and all elements of the case discussed with attending is Dr. Capone
[2016-09-20 16:34] LABS: Glucose,Whole Blood 74 mg/dL (75-99)
--- NOTE | 2016-09-20 18:06 | PN ---
Mrs. Mcmillan is a 65-year-old female with a history of coronary artery disease, who presented with symptoms of progressive dyspnea. She is feeling better today. She continues to be dyspneic going to the bathroom. She has no further symptoms of chest pain. She has no dizziness. No palpitation. She has no nausea. She is diuresing well and continues to be on the IV Lasix drip, aspirin once a day, amlodipine 10 mg daily, Lipitor 80 mg daily, Coreg 37.5 mg twice a day, insulin, isosorbide mononitrate 30 mg daily and spironolactone 12.5 mg daily. PHYSICAL EXAMINATION: Blood pressure 124/60 with the heart rate in 60s. LUNGS: With mild decrease breath sounds at the bases. HEART: Regular rate and rhythm. S1, S2, no S3, no rub. ABDOMEN: Soft, obese, nontender. EXTREMITIES: With 1 to 2+ edema. Lab data revealed BUN and creatinine 34 and 1.3. Potassium 3.6. IMPRESSION: 1. Congestive heart failure with significant fluid overload improving. 2. Symptoms of chest discomfort, stabilizing. 3. History of coronary artery disease. 4. History of chronic kidney disease, stable. 5. Hypertension. 6. Hyperlipidemia. 7. Diabetes mellitus. RECOMMENDATION: We will continue present medical therapy. Follow her renal function. I will continue on the IV Lasix for another 24 hours. If she is stable, will switch her to oral diuretics and when she stabilized then she may require repeat coronary angiography that can be done as outpatient.
[2016-09-20] MEDS: ATORVASTATIN 80 MG TAB PO SCH (20:12)
[2016-09-20] MEDS: amLODIPine 10 MG TAB PO SCH (20:12)
[2016-09-20 21:05] LABS: Glucose,Whole Blood 102 mg/dL (75-99)
[2016-09-21 06:05] LABS: Glucose,Whole Blood 84 mg/dL (75-99)
[2016-09-21] MEDS: CARVEDILOL 12.5 MG TAB PO SCH ×2 (06:34→17:21)
[2016-09-21] MEDS: PANTOPRAZOLE 40 MG TABLET PO SCH (06:34)
[2016-09-21] MEDS: LEVOTHYROXINE 75 MCG TAB PO SCH (06:34)
[2016-09-21 07:15] LABS: Calcium 9.7 mg/dL (8.4-10.2); Potassium 3.9 mmol/L (3.5-5.1)
[2016-09-21] MEDS: INSULIN LISPRO (humaLOG) 300 UNIT/3 ML VIAL SQ SCH ×3 (07:26→17:11)
[2016-09-21] MEDS: ASPIRIN 81 MG CHEW PO SCH (08:59)
[2016-09-21] MEDS: CITALOPRAM HYDROBROMIDE 20 MG TAB PO SCH (08:59)
[2016-09-21] MEDS: SPIRONOLACTONE 25 MG TAB PO SCH (09:00)
[2016-09-21] MEDS ORDERED: INSULIN GLARGINE 100 UNIT/ML 10 ML VIAL SQ SCH (09:00)
[2016-09-21] MEDS: LOSARTAN 50 MG TAB PO SCH (09:00)
[2016-09-21] MEDS: ISOSORBIDE MONONITRATE ER 30 MG TAB.ER.24H PO SCH (09:00)
[2016-09-21] MEDS: FUROSEMIDE 250 MG in SODIUM CHLORIDE 0.9% 225 ML IVP SCH (11:00)
--- NOTE | 2016-09-21 11:46 | PN ---
DATE OF SERVICE: 09/20/2016 ATTENDING NOTE: This patient was seen and examined by me earlier today. I reviewed the notes of my nurse practitioner, Ms. Pride. Discussed and reviewed. Additional findings below. This admitted with congestive heart failure exacerbation. Remains on Lasix drip. Continues to diurese well. Breathing is some improved. Tolerating a diet well. at the bedside. On examination, blood pressure 140/70, pulse ox 94% on room air. LUNGS: Decreased breath sounds. CARDIOVASCULAR: First and second sounds normal. No edema is present. PSYCH: Alert and oriented x3. MEDICATIONS: BUN 34, creatinine 1.30. Accu-Cheks 68, 76, 85. ASSESSMENT: 1. Acute on chronic congestive heart failure exacerbation from diastolic dysfunction; ejection fraction 55% from underling coronary artery disease, slow to respond. Currently on IV Lasix drip. 2. Hypoglycemia. PLAN: Continue the patient's Lasix drip. Will cut back on patient's Lantus to 30 units in the morning. Care was discussed with the patient and at bedside. Follow closely.
[2016-09-21 11:48] LABS: Glucose,Whole Blood 139 mg/dL (75-99)
[2016-09-21] MEDS: FUROSEMIDE 10 MG/ML 4 ML VIAL IV SCH (16:21)
--- NOTE | 2016-09-21 17:03 | P.PN ---
Progress Note - Text DATE OF SERVICE: 09/21/2016 PRESENTING COMPLAINT: Short of breath INTERVAL HISTORY: This is 65-year-old female who presented with congestive heart failure exacerbation. Lasix drip continues, breathing is better. Patient is able to ambulate with assistance to and from the bathroom, tolerating her diet, has not yet had a bowel movement. Patient states her appetite has not been that good today, encouraged family to bring things from home for her to eat as long as it is not too salty or to fatty. Discussion had and Questions answered with patient and at the bedside. REVIEW OF SYSTEMS: Done for constitutional ,cardiovascular, GI, pulmonary with relevant findings as above. CURRENT MEDICATIONS Norvasc, Lipitor, Coreg, Imdur, Synthroid, Cozaar, Aldactone, Lasix drip PHYSICAL EXAM: VITAL SIGNS: Temperature 97.7, pulse 59, respirations 18. Blood pressure 145/66, oxygen saturation 98% on 2 L GENERAL APPEARANCE. Lying in bed, appears comfortable. EYES: Pupils equal. Conjunctiva normal. NECK: JVD raised. Mass not palpable. RESPIRATORY: Respiratory effort increased. Lungs diminished with some crackles noted to the bases. CARDIOVASCULAR: First and second sounds normal. Moderate edema present.. ABDOMEN: Soft. Liver and spleen not palpable. No tenderness. No mass palpable. PSYCHIATRY: Alert and oriented x3. Mood and affect normal. INVESTIGATIONS: Sodium 147, potassium 3.9, BUN 34, creatinine 1.20. Accu-Cheks noted. ASSESSMENT: Acute on chronic congestive heart failure exacerbation from diastolic dysfunction, ejection fraction 55%, underlying coronary artery disease, slow to respond currently on IV Lasix drip Hypoglycemia secondary to Lantus dosing, adjustments made Hypertensive heart disease. Moderate secondary pulmonary hypertension from underlying congestive heart failure. Moderate mitral regurgitation, nonrheumatic. Coronary artery disease with stent to the left anterior descending artery in December 2014. Hyperlipidemia. Diabetes mellitus type 2, chronically on insulin. Morbid obesity, body mass index of more than 35. Depression, not otherwise specified. Chronic kidney disease stage III from diabetic nephropathy and hypertensive nephrosclerosis. Unstable angina in a patient with known coronary artery disease. PLAN: Continue patient on Lasix drip, monitor daily labs closely, encourage mobility. Patient's Lantus was adjusted to 30 units in the morning. Discussed plan of care with family and patient they are agreeable. We'll monitor closely. HOSPICE MASSAGE THERAPIST statement: Patient was seen and examined by nurse practitioner Linda Pride in all elements of the case discussed with attending is Dr. Capone
[2016-09-21 17:10] LABS: Glucose,Whole Blood 73 mg/dL (75-99)
--- NOTE | 2016-09-21 17:37 | PN ---
Ms. Mcmillan is a 65-year-old female who presented with symptoms of worsening dyspnea with symptoms of chest pain and peripheral edema. She is feeling better. Her breathing is getting better. She has lost weight. She denies any symptoms of chest pain. She denies any dizziness, palpitation. She denies any nausea. She is able to lay supine. She continues to be on amlodipine 10 mg daily, aspirin 81 mg daily, Lipitor 80 mg daily, Coreg 37.5 mg twice a day, Lasix IV drip at 10 mg an hour, isosorbide mononitrate 30 mg daily, losartan 100 mg daily. Potassium, spironolactone 12.5 mg daily. PHYSICAL EXAMINATION: Blood pressure 145/60 with a heart rate in 60s. Lungs clear. HEART: Regular rate and rhythm. S1, S2, no S3, with systolic murmur. ABDOMEN: Soft, nontender. EXTREMITIES: 2+ edema. Lab data revealed BUN and creatinine 34 and 1.2. Potassium 3.9. IMPRESSION: 1. Fluid overload with congestive heart failure and diastolic dysfunction. 2. Coronary artery disease. 3. Hypertension. 4. Obesity. 5. Hyperlipidemia. RECOMMENDATIONS: I will switch her to IV pulse Lasix. Continue the rest of medical regimen. Increase her level of activity. We will follow her renal function closely and depending on her progress, further recommendations will be made.
[2016-09-21 20:55] LABS: Glucose,Whole Blood 180 mg/dL (75-99)
[2016-09-21] MEDS: ATORVASTATIN 80 MG TAB PO SCH (21:42)
[2016-09-21] MEDS: amLODIPine 10 MG TAB PO SCH (21:42)
[2016-09-22] MEDS: FUROSEMIDE 10 MG/ML 4 ML VIAL IV SCH ×4 (00:29→23:06)
[2016-09-22 06:04] LABS: Glucose,Whole Blood 110 mg/dL (75-99)
[2016-09-22] MEDS: LEVOTHYROXINE 75 MCG TAB PO SCH (06:38)
[2016-09-22] MEDS: PANTOPRAZOLE 40 MG TABLET PO SCH (06:38)
[2016-09-22] MEDS: CARVEDILOL 12.5 MG TAB PO SCH ×2 (06:38→17:44)
[2016-09-22 07:02] LABS: Calcium 9.4 mg/dL (8.4-10.2); Potassium 3.5 mmol/L (3.5-5.1)
[2016-09-22] MEDS: INSULIN LISPRO (humaLOG) 300 UNIT/3 ML VIAL SQ SCH ×3 (07:02→17:44)
--- NOTE | 2016-09-22 07:24 | PN ---
DATE OF SERVICE: 09/21/2016 ATTENDING NOTE: This patient was seen and examined by me earlier today. I reviewed the note of my nurse practitioner MsShannen, discussed additional findings below. This is a patient with CHF exacerbation, has been on Lasix drip. Continues to make urine. Breathing is somewhat better. Been up to the bathroom. On examination, blood pressure 140/66, pulse ox 98% on 2 liters. LUNGS: Decreased breath sounds but now clearing up. NECK: JVD not raised. INVESTIGATIONS: BUN 34, creatinine 1.20. ASSESSMENT: Acute on chronic congestive heart exacerbation from diastolic dysfunction. Ejection fraction 55%, from underlying coronary artery disease, slow to respond, continue on IV Lasix drip. PLAN: Continue with IV Lasix drip. The patient's sugars are doing somewhat better. Will drop down the Lantus to 22 units in the morning, since he is still dipping sugars in the morning.
[2016-09-22] MEDS: CITALOPRAM HYDROBROMIDE 20 MG TAB PO SCH (08:13)
[2016-09-22] MEDS: SPIRONOLACTONE 25 MG TAB PO SCH (08:14)
[2016-09-22] MEDS: ISOSORBIDE MONONITRATE ER 30 MG TAB.ER.24H PO SCH (08:14)
[2016-09-22] MEDS: LOSARTAN 50 MG TAB PO SCH (08:14)
[2016-09-22] MEDS: ASPIRIN 81 MG CHEW PO SCH (08:14)
[2016-09-22] MEDS: INSULIN GLARGINE 100 UNIT/ML 10 ML VIAL SQ SCH (08:19)
[2016-09-22 11:55] LABS: Glucose,Whole Blood 150 mg/dL (75-99)
--- NOTE | 2016-09-22 12:55 | PN ---
Ms. Mcmillan is a 65-year-old female who presented with symptoms of progressive dyspnea. She is feeling much better today. Her breathing is better. She is not ambulating yet. She denies any chest pain. No dizziness. No palpitation. She denies any nausea. No cough. She continues to be on IV Lasix 40 mg q.8 hours, aspirin, Lipitor 80 mg daily, Coreg 37.5 mg twice a day, isosorbide mononitrate 30 mg daily, losartan 100 mg daily, spironolactone 12.5 mg daily. PHYSICAL EXAMINATION: Blood pressure 132/60 with the heart rate in the 60s. LUNGS: Clear. HEART: Regular rate and rhythm. S1, S2, no S3 with systolic murmur. ABDOMEN: Soft, obese, nontender. EXTREMITIES: +1 edema. Lab data revealed BUN and creatinine 33 and 1.15. Potassium 3.5. IMPRESSION: 1. Symptoms of congestive heart failure with diastolic dysfunction, improving. 2. History of coronary artery disease, stable. 3. Renal failure, improving. RECOMMENDATION: I will continue present therapy. I will switch her to oral diuretics tomorrow. If she is stable, she should be able to be discharged home and follow up with Dr. Nagy as an outpatient.
[2016-09-22 12:58] LABS: Hemoglobin A1C 6.7 % (4.2-6.1)
[2016-09-22 17:05] LABS: Glucose,Whole Blood 132 mg/dL (75-99)
--- NOTE | 2016-09-22 20:41 | P.PN ---
Progress Note - Text DATE OF SERVICE: 09/22/2016 PRESENTING COMPLAINT: Short of breath INTERVAL HISTORY: This is 65-year-old female who presented with congestive heart failure exacerbation. Lasix drip discontinued today, breathing is better. Patient is able to ambulate with assistive device to and from the bathroom, and for about 2 lengths of the hallway tolerating her diet, has had a bowel movement today. REVIEW OF SYSTEMS: Done for constitutional ,cardiovascular, GI, pulmonary with relevant findings as above. CURRENT MEDICATIONS Norvasc, Lipitor, Coreg, Imdur, Synthroid, Cozaar, Aldactone, Lasix 40 mg IV push daily. PHYSICAL EXAM: VITAL SIGNS: Temperature 98.4, pulse 64, respiratory rate 16, blood pressure 140/77, oxygen saturation 98% on 2 L. GENERAL APPEARANCE. Sitting up on the edge of the bed appears comfortable. EYES: Pupils equal. Conjunctiva normal. NECK: JVD not raised. Mass not palpable. RESPIRATORY: Respiratory effort normal. Lungs diminished bilaterally. CARDIOVASCULAR: First and second sounds normal. Mild edema present.. ABDOMEN: Soft. Liver and spleen not palpable. No tenderness. No mass palpable. PSYCHIATRY: Alert and oriented x3. Mood and affect normal. INVESTIGATIONS: Sodium 147, potassium 3.5, BUN 33, creatinine 1.15, hemoglobin A1c 6.7. ASSESSMENT: Acute on chronic congestive heart failure exacerbation from diastolic dysfunction, ejection fraction 55%, underlying coronary artery disease, on IV Lasix, improving Hypoglycemia secondary to Lantus dosing, adjustments made, improving Hypertensive heart disease. Moderate secondary pulmonary hypertension from underlying congestive heart failure. Moderate mitral regurgitation, nonrheumatic. Coronary artery disease with stent to the left anterior descending artery in December 2014. Hyperlipidemia. Diabetes mellitus type 2, chronically on insulin. Morbid obesity, body mass index of more than 35. Depression, not otherwise specified. Chronic kidney disease stage III from diabetic nephropathy and hypertensive nephrosclerosis. Unstable angina in a patient with known coronary artery disease. Acute renal failure ,component of nephrosclerosis, creatinine 1.45 on admission down to 1.15, improving PLAN: Lasix drip DC'd today. Remains on IV Lasix. Blood glucose improved. Patient encouraged to ambulate in the hallways. Discharge home in the next 1-2 days. DATA SCIENTIST statement: Patient was seen and examined by nurse practitioner Linda Pride in all elements of the case discussed with attending is Dr. Capone
[2016-09-22 20:42] LABS: Glucose,Whole Blood 133 mg/dL (75-99)
[2016-09-22] MEDS: amLODIPine 10 MG TAB PO SCH (20:47)
[2016-09-22] MEDS: ATORVASTATIN 80 MG TAB PO SCH (20:47)
[2016-09-23 05:59] LABS: Glucose,Whole Blood 99 mg/dL (75-99)
[2016-09-23 06:30] LABS: Calcium 9.3 mg/dL (8.4-10.2); Potassium 3.6 mmol/L (3.5-5.1)
[2016-09-23] MEDS: CARVEDILOL 12.5 MG TAB PO SCH (07:00)
[2016-09-23] MEDS: PANTOPRAZOLE 40 MG TABLET PO SCH (07:00)
[2016-09-23] MEDS: LEVOTHYROXINE 75 MCG TAB PO SCH (07:00)
[2016-09-23] MEDS: INSULIN LISPRO (humaLOG) 300 UNIT/3 ML VIAL SQ SCH ×2 (07:00→12:23)
[2016-09-23] MEDS ORDERED: SPIRONOLACTONE 25 MG TAB PO SCH (09:00)
[2016-09-23] MEDS ORDERED: POTASSIUM CHLORIDE ER 20 MEQ TAB.ER PO SCH (09:00)
[2016-09-23] MEDS: FUROSEMIDE 10 MG/ML 4 ML VIAL IV SCH (09:08)
[2016-09-23] MEDS: INSULIN GLARGINE 100 UNIT/ML 10 ML VIAL SQ SCH (09:27)
[2016-09-23] MEDS: ISOSORBIDE MONONITRATE ER 30 MG TAB.ER.24H PO SCH (09:29)
[2016-09-23] MEDS: ASPIRIN 81 MG CHEW PO SCH (09:31)
[2016-09-23] MEDS: CITALOPRAM HYDROBROMIDE 20 MG TAB PO SCH (09:31)
[2016-09-23] MEDS: LOSARTAN 50 MG TAB PO SCH (09:32)
--- NOTE | 2016-09-23 10:31 | PN ---
DATE OF SERVICE: 09/22/2016 ATTENDING NOTE: This patient was seen and examined by me on 09/22/2016. I reviewed the note of my nurse practitioner, Ms. Pride. Reviewed, discussed additional findings below. Patient admitted with CHF exacerbation. At bedtime been on Lasix, diuresing rather well. Breathing is getting better. The patient actually got up to the bathroom and did walk in the hallway. ( ). She looks much more perky, cheerful as with . On examination, lungs are clear. Edema is present. Blood pressure 140/77. ASSESSMENT: 1. Acute on chronic congestive heart failure exacerbation from diastolic dysfunction; ejection fraction 55% with clinical improvement. 2. Hypoglycemia, improved. 3. Acute renal failure component with creatinine of 1.5 on admission down to 1.15. PLAN: Lasix drip will be discontinued. Patient doing much better. Care was discussed with the patient and at the bedside. Jorge wraps are to be used. Will follow.
[2016-09-23 11:04] VITALS: RESP 16
[2016-09-23 11:43] LABS: Glucose,Whole Blood 163 mg/dL (75-99)
[2016-09-23 13:47] VITALS: BP 130/60; PULSE 60; TEMP 98.1
[2016-09-23] MEDS ORDERED: FUROSEMIDE 40 MG TAB PO SCH (14:00)
--- NOTE | 2016-09-23 16:19 | P.DS ---
Providers Date of admission: 09/17/16 19:07 Expected date of discharge: 09/23/16 Attending physician: Johnny Capone Consults: 09/17/16 19:07 Consult Physician Routine Consulting Provider: [facility] Consult Reason/Comments: Acute pulmonary edema Do you want consulting provider notified?: Yes Primary care physician: Eduin Aultman Hospital Course: FINAL DIAGNOSES: Acute on chronic congestive heart failure exacerbation from diastolic dysfunction, ejection fraction 55% underlying coronary artery disease, with clinical improvement. Hypoglycemia secondary to Lantus dosing, adjustments made improved. Hypertensive heart disease. Moderate secondary pulmonary hypertension from underlying congestive heart failure. Moderate mitral regurgitation, nonrheumatic. Coronary artery disease with stent to the left anterior descending artery in December 2014. Hyperlipidemia. Diabetes mellitus type 2 chronically on insulin. Morbid obesity body mass index of more than 35. Depression not otherwise specified. Chronic kidney disease stage III from diabetic nephropathy and hypertensive nephrosclerosis. Unstable angina patient with known coronary artery disease. Acute renal failure, component of nephrosclerosis, creatinine 1.45 on admission down to 1.40 Hypoglycemia improved. HOSPTIAL COURSE: This is a 65-year-old female who was admitted with an acute on chronic congestive heart failure exacerbation, Received Lasix drip on admission, cardiology consulted strict I and O, labs monitored closely. Breathing improved , patient was able to tolerate more activity, was sleeping better, with less pillows. Noted to have low blood glucose in the clinical engineering director, insulin adjusted. Patient was walking in the hallway, oxygen saturation measured it was in the low 80"s, performed walking pulse ox exam patient's oxygen saturation was 83% on room air, therefore qualifying her for home oxygen therapy. Patient is patient service technician pst today, laughing and smiling, at the bedside , states she is ready to go home. Breathing easier, tolerating her diet, moved her bowels and is ambulating in the hallway with oxygen and a walker. All consulted services agree that patient is ready for discharge. Discharge care discussed at length with the patient, weighing herself daily or every other day , monitoring oral intake particularly water, monitoring salt intake, increasing activity as she can tolerate. PHYSICAL EXAM: CARDIOVASCULAR: first and second sound noted, mild edema to lower extremities. RESPIRATORY: effort normal, diminished breath sounds bilaterally PSYCHIATRY: Alert and oriented 3 mood and affect are normal. BRIDGE CONSTRUCTION INSPECTOR statement: Patient was seen and examined by nurse practitioner Linda Pride in all elements of the case discussed with attending Dr. Capone DISOPSITION: home to the care of her family Patient Condition at Discharge: Stable Plan - Discharge Summary New Discharge Prescriptions: New Spironolactone [Aldactone] 25 mg PO DAILY #30 tab Continue Nitroglycerin Sl Tabs [Nitrostat] 0.4 mg SUBLINGUAL Q5M PRN #25 tab PRN Reason: Chest Pain Aspirin 81 mg PO DAILY #1 chewable Multivitamins, Thera [Multivitamin (formulary)] 1 tab PO DAILY Atorvastatin [Lipitor] 80 mg PO HS Carvedilol [Coreg*] 37.5 mg PO BID-W/MEALS Isosorbide Mononitrate ER [Imdur] 30 mg PO QAM Levothyroxine Sodium [Synthroid] 75 mcg PO DAILY amLODIPine [Norvasc] 10 mg PO HS Pantoprazole [Protonix] 40 mg PO DAILY Citalopram Hydrobromide [CeleXA] 20 mg PO DAILY tab INSULIN LISPRO (HumaLOG) [humaLOG] 4 units SQ AC-TID #1 vial Losartan Potassium [Cozaar] 100 mg PO DAILY Torsemide [Demadex] 20 mg PO BID Changed Spironolactone [Aldactone] 25 mg PO DAILY #0 Insulin Glargine [Lantus] 20 unit SQ DAILY #0 Discontinued Meclizine HCl 12.5 mg PO BID PRN PRN Reason: DIZZINESS Loratadine [Claritin] 10 mg PO DAILY Discharge Medication List Nitroglycerin Sl Tabs [Nitrostat] 0.4 mg SUBLINGUAL Q5M PRN #25 tab 04/03/15 [Rx ] Aspirin 81 mg PO DAILY #1 chewable 06/05/15 [Rx] Multivitamins, Thera [Multivitamin (formulary)] 1 tab PO DAILY 07/02/15 [History ] Atorvastatin [Lipitor] 80 mg PO HS 08/01/15 [History] Carvedilol [Coreg*] 37.5 mg PO BID-W/MEALS 08/01/15 [History] Isosorbide Mononitrate ER [Imdur] 30 mg PO QAM 08/01/15 [History] Levothyroxine Sodium [Synthroid] 75 mcg PO DAILY 05/01/16 [History] amLODIPine [Norvasc] 10 mg PO HS 05/23/16 [History] Pantoprazole [Protonix] 40 mg PO DAILY 08/11/16 [History] Citalopram Hydrobromide [CeleXA] 20 mg PO DAILY tab 08/14/16 [Rx] INSULIN LISPRO (HumaLOG) [humaLOG] 4 units SQ AC-TID #1 vial 08/16/16 [Rx] Losartan Potassium [Cozaar] 100 mg PO DAILY 09/17/16 [History] Torsemide [Demadex] 20 mg PO BID 09/17/16 [History] Insulin Glargine [Lantus] 20 unit SQ DAILY #0 09/23/16 [Rx] Spironolactone [Aldactone] 25 mg PO DAILY #0 09/23/16 [Rx] Spironolactone [Aldactone] 25 mg PO DAILY #30 tab 09/23/16 [Rx] Follow up Appointment(s)/Referral(s): [facility], [NON-STAFF] - Eduin Moore MD [Primary Care Provider] - 3 Days Fausto Nagy MD [STAFF PHYSICIAN] - 1 Week Ambulatory/Diagnostic Orders: Basic Metabolic Panel [LAB.AMB] Time Frame: 1 Week, Location: Determined By Patient Patient Instructions/Handouts: Heart Failure (DC), Using Oxygen at Home (DC) Activity/Diet/Wound Care/Special Instructions: fluid trestrict 2000 cc/day daily weights Discharge Disposition: HOME SELF-CARE
--- NOTE | 2016-09-26 11:41 | DS ---
DATE OF ADMISSION: 09/17/2016 DATE OF DISCHARGE: 09/23/2016 ATTENDING NOTE: This patient was seen and examined by me on 09/23/2016. Refer to the discharge summary of my EQUIPMENT VALIDATION ENGINEER, Ms. Pride. Discussed with her and the findings below. This patient admitted with CHF exacerbation, doing much better at the time of discharge, has been treated with IV Lasix. On exam, lungs are clear. Decreased breath sounds. Mild edema. Care was discussed at length with the patient and the , including daily weights, water intake. Sugars are running low. Insulin dose was adjusted accordingly. Patient's BUN and creatinine are 31 1.40 at the time of discharge. Discharge planning more than 35 minutes. More details as in notes.
== END 2016-09-23 15:37 | disposition home health service (06) | DRG 291 ==
LOC: EC 15:20 → 6SEL 19:07
PROVIDERS: ADMIT Hospitalist; ATTEND Hospitalist
DX: I13.0 Hypertensive heart and chronic kidney disease with heart failure and stage 1 through stage 4 chronic kidney disease, or unspecified chronic kidney disease (principal); I50.33 Acute on chronic diastolic (congestive) heart failure; N17.9 Acute kidney failure, unspecified; E11.21 Type 2 diabetes mellitus with diabetic nephropathy; E11.649 Type 2 diabetes mellitus with hypoglycemia without coma; I27.2 Other secondary pulmonary hypertension; Z68.42 Body mass index [BMI] 45.0-49.9, adult; E66.01 Morbid (severe) obesity due to excess calories; I25.110 Atherosclerotic heart disease of native coronary artery with unstable angina pectoris; E11.22 Type 2 diabetes mellitus with diabetic chronic kidney disease; I34.0 Nonrheumatic mitral (valve) insufficiency; T38.3X5A Adverse effect of insulin and oral hypoglycemic [antidiabetic] drugs, initial encounter; E87.6 Hypokalemia; E78.5 Hyperlipidemia, unspecified; N18.3 Chronic kidney disease, stage 3 (moderate); I25.2 Old myocardial infarction; I44.7 Left bundle-branch block, unspecified; R63.4 Abnormal weight loss; D64.9 Anemia, unspecified; F32.9 Major depressive disorder, single episode, unspecified; H26.9 Unspecified cataract; R14.0 Abdominal distension (gaseous); Z79.82 Long term (current) use of aspirin; Z79.4 Long term (current) use of insulin; Z79.899 Other long term (current) drug therapy; Z83.3 Family history of diabetes mellitus; Z82.49 Family history of ischemic heart disease and other diseases of the circulatory system; Z95.5 Presence of coronary angioplasty implant and graft; Z98.41 Cataract extraction status, right eye; Z86.19 Personal history of other infectious and parasitic diseases; Z71.3 Dietary counseling and surveillance
CPT/HCPCS: 36415; 71020; 80048; 80053; 82550; 82553; 83036; 83880; 84132; 84484; 85025; 85610; 85730; 93005; 96374; 99285

== ENCOUNTER 2016-11-18 06:34 | Day surgery (SDC) | payer MEDICARE ==
[2016-11-14 08:40] VITALS: BMI 37.4
[~2016-11-18 06:34] MED LIST: ALPRAZolam 0.25 MG TAB PO PRN; ALPRAZolam 0.5 MG TAB PO PRN; ASPIRIN 325 MG TAB PO STA; ATORVASTATIN 80 MG TAB PO STA; NITROGLYCERIN SL TABS 0.4 MG TAB SUBLINGUAL PRN; SODIUM CHLORIDE 0.9% 1,000 ML in EMPTY BAG 1 BAG IV ONE
[2016-11-18] MEDS ORDERED: INSULIN LISPRO (humaLOG) 300 UNIT/3 ML VIAL SQ ONE (07:10)
[2016-11-18 07:12] LABS: Glucose,Whole Blood 275 mg/dL (75-99)
[2016-11-18 07:15] VITALS: TEMP 98.1
[2016-11-18 07:29] LABS: Calcium 9.3 mg/dL (8.4-10.2); Potassium 4.4 mmol/L (3.5-5.1); Total Bilirubin 0.7 mg/dL (0.2-1.3); Total Protein 7.5 g/dL (6.3-8.2)
[2016-11-18 07:35] LABS: Basophils % (A) 0 %; CH 27.2; CHCM 32.6; Eosinophils # (A) 0.4 k/uL (0-0.7); Eosinophils % (A) 4 %; HCT 38.3 % (34.0-46.0); HDW 2.87; Luc # (Auto) 0.17; Luc % (Auto) 2; Lymphocytes # (A) 2.8 k/uL (1.0-4.8); Lymphocytes % (A) 25 %; MCH 27.9 pg (25.0-35.0); MCHC 33.4 g/dL (31.0-37.0); MCV 83.7 fL (80.0-100.0); Mean Platelet Volume 6.9; Monocytes # (A) 0.6 k/uL (0-1.0); Monocytes % (A) 6 %; Neutrophils % (A) 64 %; RBC 4.58 m/uL (3.80-5.40); RDW 15.3 % (11.5-15.5); WBC (Perox) 11.46
[2016-11-18 07:36] LABS: HGB 12.8 gm/dL (11.4-16.0)
[2016-11-18] MEDS ORDERED: fentaNYL (PF) 50 MCG/ML 2 ML AMP IV ONE (07:39)
[2016-11-18] MEDS ORDERED: LIDOCAINE 2% INJ 20 MG/ML SQ ONE (07:41)
[2016-11-18] MEDS ORDERED: MIDAZOLAM 2 MG/2 ML VIAL IV ONE (07:41)
[2016-11-18] MEDS ORDERED: NITROGLYCERIN OINT 1 INCH/GM PACKET TOPICAL ONE (07:51)
[2016-11-18] MEDS ORDERED: RX INFO: IV CONTRAST WAS GIVEN 1 EACH MISC MISCELLANE PRN (08:02)
[2016-11-18] MEDS ORDERED: SODIUM CHLORIDE 0.9% 1,000 ML IV SCH ×2 (08:15→08:20)
[2016-11-18] MEDS ORDERED: IODIXANOL 320 MG/ML 100 ML INTRAARTER ONE (08:17)
[2016-11-18 12:12] LABS: Glucose,Whole Blood 227 mg/dL (75-99)
[2016-11-18 12:51] VITALS: BP 123/59; PULSE 71; RESP 16
[2016-11-18] MEDS: INSULIN LISPRO (humaLOG) 300 UNIT/3 ML VIAL SQ SCH ×2 (12:56→17:00)
--- NOTE | 2016-11-18 13:19 | CC ---
CARDIAC CATHETERIZATION NOTE INDICATION: Unstable angina. INDICATION: Unstable angina in a patient with known CAD, status post ( ) angioplasty of LAD. PROCEDURE: After obtaining informed consent, left heart catheterization and coronary angiogram were performed via the right femoral artery using standard Fany catheters. The patient tolerated the procedure well without any obvious immediate complications. Femoral angiogram was performed and Angio- Seal will be deployed for hemostasis. The patient has chronic renal insufficiency and has been seen by weight loss sales consultant who felt that patient can safely proceed with heart catheterization at this time. I am going to hydrate her perioperatively. The patient and the family had been explained of risks, benefits including the risk of contrast-induced nephropathy, end-stage renal disease and the need to be on hemodialysis. FINDINGS: 1. HEMODYNAMICS: Left ventricular end-diastolic pressure is 18 to 24. There is no significant gradient across the aortic valve. 2. LEFT VENTRICULOGRAM: Left ventriculogram is not performed. 3. ANGIOGRAPHIC DATA: LEFT MAIN CORONARY ARTERY: Left main coronary artery is a normal size vessel and is free of stenosis. It divides into left anterior descending coronary artery and circumflex coronary artery. Circumflex coronary artery is a nondominant vessel and is free of significant stenosis. LAD was previously stented in the mid and distal part proximal to the proximal stent. In the proximal LAD, there is a 50% to 60% narrowing. Right coronary artery is a large dominant vessel and is free of significant stenosis. CONCLUSIONS: 1. Elevated left ventricular end-diastolic pressures. 2. A 50% to 60% stenosis involving the proximal left anterior descending artery just proximal to the proximal left anterior descending artery stent. Patient received moderate conscious sedation. Total sedation time is 25 minutes. Total contrast used is 60 mL. Her threshold is 80 mL. PLAN: I am going to review the angiographic data with Dr. Josie Hubbard. I will hydrate her, control her blood pressures optimally. If the patient is to have angioplasty, we will bring her back at a later day and attempt angioplasty of the LAD. [facility]ACHERY
[2016-11-18] MEDS ORDERED: hydrALAZINE HCL 50 MG TAB PO SCH (16:00)
[2016-11-18] MEDS ORDERED: CLOPIDOGREL 75 MG TAB PO SCH (16:00)
== END 2016-11-18 17:40 | disposition home or self-care (01) ==
LOC: CATHCVL 06:34
PROVIDERS: ATTEND Internal Medicine Cardiovascular Disease
DX: I25.110 Atherosclerotic heart disease of native coronary artery with unstable angina pectoris (principal); I12.0 Hypertensive chronic kidney disease with stage 5 chronic kidney disease or end stage renal disease; N18.6 End stage renal disease; Z99.2 Dependence on renal dialysis; E78.2 Mixed hyperlipidemia; E11.9 Type 2 diabetes mellitus without complications; Z79.4 Long term (current) use of insulin; Z79.84 Long term (current) use of oral hypoglycemic drugs; Z79.02 Long term (current) use of antithrombotics/antiplatelets; Z79.82 Long term (current) use of aspirin; Z79.899 Other long term (current) drug therapy
CPT/HCPCS: 99152; 99153; 93458; 80053; 85025; C1760; C1894; C1769; J2001; J2250; Q9967; J3010

== ENCOUNTER 2016-11-25 07:55 | Day surgery (SDC) | payer MEDICARE ==
[2016-11-25 08:24] LABS: Glucose,Whole Blood 200 mg/dL (75-99)
[2016-11-25 08:36] LABS: Anisocytosis Slight; Basophils % (A) 0 %; CH 28.3; CHCM 32.4; Eosinophils # (A) 0.4 k/uL (0-0.7); Eosinophils % (A) 5 %; HDW 2.74; HGB 11.4 gm/dL (11.4-16.0); Luc # (Auto) 0.09; Luc % (Auto) 1; Lymphocytes % (A) 23 %; MCH 27.6 pg (25.0-35.0); MCHC 31.6 g/dL (31.0-37.0); MCV 87.3 fL (80.0-100.0); Mean Platelet Volume 7.4; Monocytes # (A) 0.5 k/uL (0-1.0); Monocytes % (A) 6 %; Neutrophils # (A) 5.6 k/uL (1.3-7.7); Neutrophils % (A) 66 %; RBC 4.13 m/uL (3.80-5.40); RDW 16.7 % (11.5-15.5); WBC 8.6 k/uL (3.8-10.6)
[2016-11-25 08:45] LABS: Calcium 9.5 mg/dL (8.4-10.2)
[2016-11-25 08:52] LABS: Potassium 5.1 mmol/L (3.5-5.1)
[2016-11-25] MEDS ORDERED: MIDAZOLAM 2 MG/2 ML VIAL ONE (14:01)
[2016-11-25] MEDS ORDERED: diphenhydrAMINE 50 MG/ML 1 ML VIAL ONE (14:01)
[2016-11-25] MEDS ORDERED: LIDOCAINE 2% INJ 20 MG/ML (20 ML MDV) ONE (14:01)
[2016-11-25] MEDS ORDERED: diphenhydrAMINE 50 MG/ML 1 ML VIAL IVP ONE (14:04)
[2016-11-25] MEDS ORDERED: MIDAZOLAM 2 MG/2 ML VIAL IVP ONE (14:04)
[2016-11-25] MEDS ORDERED: LIDOCAINE 2% INJ 20 MG/ML SQ ONE (14:06)
[2016-11-25] MEDS ORDERED: BIVALIRUDIN BOLUS 250 MG/50 ML IV ONE (14:11)
[2016-11-25] MEDS ORDERED: BIVALIRUDIN 250 MG in SODIUM CHLORIDE 0.9% 40 ML IV ONE (14:13)
[2016-11-25] MEDS ORDERED: NITROGLYCERIN 1000MCG/10ML SYRINGE INTRACORON ONE (14:26)
[2016-11-25] MEDS ORDERED: CLOPIDOGREL 75 MG TAB ONE (14:29)
[2016-11-25] MEDS ORDERED: CLOPIDOGREL 75 MG TAB PO ONE (14:30)
[2016-11-25] MEDS ORDERED: IODIXANOL 320 MG/ML 100 ML INTRAARTER ONE (14:38)
[2016-11-25] MEDS ORDERED: RX INFO: IV CONTRAST WAS GIVEN 1 EACH MISC MISCELLANE PRN (14:40)
[2016-11-25] MEDS ORDERED: MAG HYDROX/AL HYDROX/SIMETH 30 ML CUP PO PRN (14:40)
[2016-11-25] MEDS ORDERED: ZOLPIDEM 5 MG TAB PO PRN (14:40)
[2016-11-25] MEDS ORDERED: ATROPINE SULFATE 0.1 MG/ML 10ML SYRINGE IV PRN (14:40)
[2016-11-25] MEDS ORDERED: NITROGLYCERIN SL TABS 0.4 MG TAB SUBLINGUAL PRN (14:46)
[2016-11-25] MEDS ORDERED: MECLIZINE 12.5 MG TAB PO PRN (14:46)
[2016-11-25] MEDS ORDERED: HYDROmorphone 1 MG/ML 1 ML SYRINGE IVP STA (18:41)
[2016-11-25] MEDS: SODIUM CHLORIDE 0.9% 1,000 ML IV SCH (18:43)
[2016-11-25] MEDS: INSULIN LISPRO (humaLOG) 300 UNIT/3 ML VIAL SQ SCH (18:43)
[2016-11-25] MEDS: CARVEDILOL 12.5 MG TAB PO SCH (18:43)
[2016-11-25 19:12] VITALS: BMI 41.0
[2016-11-25] MEDS: TORSEMIDE 20 MG TAB PO SCH (20:45)
[2016-11-25 20:46] LABS: Glucose,Whole Blood 98 mg/dL (75-99)
[2016-11-26 06:09] LABS: Glucose,Whole Blood 102 mg/dL (75-99)
[2016-11-26 06:14] LABS: Basophils % (A) 0 %; CH 27.3; CHCM 32.2; Eosinophils # (A) 0.3 k/uL (0-0.7); Eosinophils % (A) 4 %; HCT 34.1 % (34.0-46.0); HDW 2.79; Luc % (Auto) 1; Lymphocytes # (A) 1.3 k/uL (1.0-4.8); Lymphocytes % (A) 17 %; MCH 27.5 pg (25.0-35.0); MCHC 32.4 g/dL (31.0-37.0); MCV 84.7 fL (80.0-100.0); Mean Platelet Volume 6.9; Monocytes # (A) 0.5 k/uL (0-1.0); Monocytes % (A) 6 %; Neutrophils # (A) 5.4 k/uL (1.3-7.7); Neutrophils % (A) 71 %; RBC 4.02 m/uL (3.80-5.40); RDW 15.8 % (11.5-15.5); WBC 7.6 k/uL (3.8-10.6); WBC (Perox) 8.08
[2016-11-26] MEDS: SODIUM CHLORIDE 0.9% 1,000 ML IV SCH (06:29)
[2016-11-26] MEDS ORDERED: PANTOPRAZOLE 40 MG TABLET PO SCH (06:30)
[2016-11-26 07:17] LABS: Calcium 9.4 mg/dL (8.4-10.2); Potassium 4.6 mmol/L (3.5-5.1)
[2016-11-26] MEDS ORDERED: LEVOTHYROXINE 75 MCG TAB PO SCH (07:30)
[2016-11-26] MEDS: INSULIN LISPRO (humaLOG) 300 UNIT/3 ML VIAL SQ SCH (07:36)
[2016-11-26] MEDS: CARVEDILOL 12.5 MG TAB PO SCH (07:37)
[2016-11-26] MEDS: TORSEMIDE 20 MG TAB PO SCH (07:59)
[2016-11-26 08:51] VITALS: BP 122/58; PULSE 70; RESP 18; TEMP 98.1
[2016-11-26] MEDS ORDERED: SPIRONOLACTONE 25 MG TAB PO SCH (09:00)
[2016-11-26] MEDS ORDERED: ISOSORBIDE MONONITRATE ER 30 MG TAB.ER.24H PO SCH (09:00)
[2016-11-26] MEDS ORDERED: INSULIN GLARGINE 100 UNIT/ML 10 ML VIAL SQ SCH (09:00)
[2016-11-26] MEDS ORDERED: LOSARTAN 50 MG TAB PO SCH (09:00)
[2016-11-26] MEDS ORDERED: ASPIRIN 81 MG CHEW PO SCH (09:00)
[2016-11-26] MEDS ORDERED: amLODIPine 10 MG TAB PO SCH (09:00)
[2016-11-26] MEDS ORDERED: CITALOPRAM HYDROBROMIDE 20 MG TAB PO SCH (09:00)
[2016-11-26] MEDS ORDERED: ATORVASTATIN 80 MG TAB PO SCH (09:00)
--- NOTE | 2016-11-26 11:11 | P.DS ---
Providers Date of admission: November 25 2016 Discharge Note: Diagnosis: Unstable angina Procedure performed: PTCA and stenting of proximal/mid LAD with a drug-eluting stent This is a lady with history of type 2 diabetes, hypertension hypercholesterolemia and CAD with previous stenting of mid LAD performed by me in 2014 She was evaluated by will see sudden the office and had a cardiac cath about a week ago which revealed that there was a restenotic lesion in the LAD stent as well as a lesion proximal to it she was advised intervention and brought in for the procedure electively. PTCA and stenting of this restenotic lesion in the LAD was performed uneventfully yesterday. Postprocedure course was unremarkable. This morning she is doing well. Ambulating without symptoms. Her EKG and labs are unremarkable. She has an underlying left bundle branch block pattern. Renal function has actually improved. Vital signs are stable physical exam reveals a JVD of 1 cm regimen. S1-S2 with a short systolic murmur lungs are clear abdomen and lower extremity exam is unremarkable. The right groin is clean and dry with a good pulse. Discharge instructions regarding activity diet medications were given. Patient will be discharged today and will see Dr. Nagy in the office in one week. PRESCRIPTIONS were reviewed and I given a new prescription for Plavix and she has all other medications already. Expected date of discharge: 11/26/16 Attending physician: Ramone Hubbard Consults: 11/25/16 14:40 Consult Physician Routine Consulting Provider: [facility] Consult Reason/Comments: Post Interventional patient Do you want consulting provider notified?: Already Contacted Primary care physician: Eduin Moore Plan - Discharge Summary New Discharge Prescriptions: New Clopidogrel [Plavix] 75 mg PO DAILY #90 tab Continue Nitroglycerin Sl Tabs [Nitrostat] 0.4 mg SUBLINGUAL Q5M PRN #25 tab PRN Reason: Chest Pain Aspirin 81 mg PO DAILY #1 chewable Multivitamins, Thera [Multivitamin (formulary)] 1 tab PO DAILY Atorvastatin [Lipitor] 80 mg PO DAILY Isosorbide Mononitrate ER [Imdur] 30 mg PO QAM Levothyroxine Sodium [Synthroid] 75 mcg PO DAILY amLODIPine [Norvasc] 10 mg PO DAILY Pantoprazole [Protonix] 40 mg PO DAILY Citalopram Hydrobromide [CeleXA] 20 mg PO DAILY tab INSULIN LISPRO (HumaLOG) [humaLOG] 4 units SQ AC-TID #1 vial Losartan Potassium [Cozaar] 100 mg PO DAILY Torsemide [Demadex] 20 mg PO BID Insulin Glargine [Lantus] 20 unit SQ DAILY #0 Spironolactone [Aldactone] 25 mg PO DAILY #30 tab Meclizine [Antivert] 12.5 mg PO BID PRN PRN Reason: Vertigo Changed Carvedilol [Coreg*] 25 mg PO BID-W/MEALS #0 Discharge Medication List Nitroglycerin Sl Tabs [Nitrostat] 0.4 mg SUBLINGUAL Q5M PRN #25 tab 04/03/15 [Rx ] Aspirin 81 mg PO DAILY #1 chewable 06/05/15 [Rx] Multivitamins, Thera [Multivitamin (formulary)] 1 tab PO DAILY 07/02/15 [History ] Atorvastatin [Lipitor] 80 mg PO DAILY 08/01/15 [History] Isosorbide Mononitrate ER [Imdur] 30 mg PO QAM 08/01/15 [History] Levothyroxine Sodium [Synthroid] 75 mcg PO DAILY 05/01/16 [History] amLODIPine [Norvasc] 10 mg PO DAILY 05/23/16 [History] Pantoprazole [Protonix] 40 mg PO DAILY 08/11/16 [History] Citalopram Hydrobromide [CeleXA] 20 mg PO DAILY tab 08/14/16 [Rx] INSULIN LISPRO (HumaLOG) [humaLOG] 4 units SQ AC-TID #1 vial 08/16/16 [Rx] Losartan Potassium [Cozaar] 100 mg PO DAILY 09/17/16 [History] Torsemide [Demadex] 20 mg PO BID 09/17/16 [History] Insulin Glargine [Lantus] 20 unit SQ DAILY #0 09/23/16 [Rx] Spironolactone [Aldactone] 25 mg PO DAILY #30 tab 09/23/16 [Rx] Meclizine [Antivert] 12.5 mg PO BID PRN 11/18/16 [History] Carvedilol [Coreg*] 25 mg PO BID-W/MEALS #0 11/26/16 [Rx] Clopidogrel [Plavix] 75 mg PO DAILY #90 tab 11/26/16 [Rx] Follow up Appointment(s)/Referral(s): Fausto Nagy MD [STAFF PHYSICIAN] - 1 Week
[2016-11-26 11:47] LABS: Glucose,Whole Blood 179 mg/dL (75-99)
[2016-11-26] MEDS ORDERED: MULTIVITAMINS, THERA 1 EACH TAB PO SCH (12:00)
[2016-11-26] MEDS ORDERED: CLOPIDOGREL 75 MG TAB PO SCH (14:00)
--- NOTE | 2016-11-26 21:43 | PTCA ---
DATE OF PROCEDURE: 11/25/16 PROCEDURE: PTCA and stenting of proximal left anterior descending coronary artery with in stent restenosis and also proximal to the stent. PERFORMED BY: Dr. Josie Hubbard. CLINICAL INFORMATION: Cony Mcmillan is a 65 -year-old lady with Type 2 diabetes, chronic kidney disease, hypertension, hyperlipidemia, previous LAD stenting in 2014. Dr. Nagy performed a cardiac catheterization about a week ago and noted that the LAD was widely patent within the distal two thirds of the stent but the proximal one third of the stent and also proximal to the stent there was 70 to 80% eccentric lesion. She was advised intervention, brought into the procedure electively, after adequate hydration. PROCEDURE NOTE: Under local anesthesia and strict aseptic precautions, a 6 Bhutanese introducer was placed in the right femoral artery. I used a JL3.5 guide catheter to cannulate the left coronary artery. A BMW wire was used to cross the lesion. Predilatation was performed using a 2.25 caliber 12 mm long NC Trek balloon at 12 atmospheres. I then deployed a 3.0 caliber Promus stent at 12 atmospheres. The patient had no significant chest pain or EKG changes. Excellent angiographic result without complication was achieved. The sheath was sutured in and will be taken out in two hours and this will be a manual pull. The patient received 600 mg of Plavix. She also received Angiomax bolus and infusion as per protocol. Excellent angiographic result without complication was achieved. The patient will be hydrated very closely and BUN and creatinine will be checked tomorrow. The results were discussed with the patient and family members. Moderate conscious sedation was provided for a total duration of 30 minutes. The patient received a combination of Versed and Benadryl. [facility]
== END 2016-11-26 13:35 | disposition home or self-care (01) ==
LOC: CATHCVL 07:55 → 6SEL 14:30 → CATHCVL 11-26 13:35
PROVIDERS: ATTEND Internal Medicine Interventional Cardiology
DX: T82.855A Stenosis of coronary artery stent, initial encounter (principal); I25.110 Atherosclerotic heart disease of native coronary artery with unstable angina pectoris; I12.9 Hypertensive chronic kidney disease with stage 1 through stage 4 chronic kidney disease, or unspecified chronic kidney disease; N18.3 Chronic kidney disease, stage 3 (moderate); E78.2 Mixed hyperlipidemia; E11.9 Type 2 diabetes mellitus without complications; Z79.84 Long term (current) use of oral hypoglycemic drugs; Z79.4 Long term (current) use of insulin; Z79.02 Long term (current) use of antithrombotics/antiplatelets; Z79.82 Long term (current) use of aspirin; Z79.899 Other long term (current) drug therapy
CPT/HCPCS: 80048; 85025

== ENCOUNTER 2017-07-25 00:43 | Inpatient (IN) | payer MEDICARE ==
[2017-07-25 02:06] LABS: Calcium 9.4 mg/dL (8.4-10.2); Magnesium 1.9 mg/dL (1.6-2.3); Potassium 4.6 mmol/L (3.5-5.1); Total Bilirubin 0.4 mg/dL (0.2-1.3); Total Protein 6.7 g/dL (6.3-8.2)
[2017-07-25 02:08] LABS: Basophils % (A) 0 %; Eosinophils # (A) 0.3 k/uL (0-0.7); Eosinophils % (A) 2 %; HCT 32.4 % (34.0-46.0); HGB 10.6 gm/dL (11.4-16.0); Lymphocytes # (A) 1.4 k/uL (1.0-4.8); Lymphocytes % (A) 11 %; MCH 30.3 pg (25.0-35.0); MCHC 32.9 g/dL (31.0-37.0); MCV 91.9 fL (80.0-100.0); Mean Platelet Volume 6.9; Monocytes # (A) 0.9 k/uL (0-1.0); Monocytes % (A) 6 %; Neutrophils # (A) 10.9 k/uL (1.3-7.7); Neutrophils % (A) 80 %; Platelet Count 256 k/uL (150-450); RBC 3.52 m/uL (3.80-5.40); WBC 13.6 k/uL (3.8-10.6)
[2017-07-25 02:11] LABS: Partial Thromboplastin Time 23.1 sec (22.0-30.0); Prothrombin Time 9.8 sec (9.0-12.0)
[2017-07-25 02:14] LABS: Creatine Kinase 74 U/L (30-135)
--- NOTE | 2017-07-25 02:22 | XR ---
EXAMINATION TYPE: XR chest 2V DATE OF EXAM: 07/25/2017 COMPARISON: 09/17/2016 HISTORY: Chest pain TECHNIQUE: Frontal and lateral views of the chest are obtained. FINDINGS: There is no heart failure nor confluent pneumonic infiltrate. There is some coarsening of interstitial markings. Heart is probably enlarged. There is slight blunting of the posterior costophr enic angles. Bony thorax is intact. IMPRESSION: Minute pleural effusions which are decreased compared to last exam. Cardiomegaly. No carson ss heart failure.
[2017-07-25 02:27] LABS: Creatine Kinase MB 1.1 ng/mL (0.0-2.4); Troponin I <0.012 ng/mL (0.000-0.034)
[2017-07-25 02:50] LABS: Amorphous Sediment,Urine Rare /hpf; Appearance,Urine Cloudy (Clear); Bacteria,Urine Many /hpf; Bilirubin,Urine Negative (Negative); Blood,Urine Small (Negative); Color,Urine Light Yellow; Glucose,Urine (UA) Negative (Negative); Hyaline Casts,Urine 3 /lpf (0-2); Ketones,Urine Negative (Negative); Leukocyte Esterase,Urine Large (Negative); Mucus,Urine Rare /hpf; Nitrite,Urine Negative (Negative); Protein,Urine 1+ (Negative); RBC,Urine 2 /hpf (0-5); Specific Gravity,Urine 1.011 (1.001-1.035); Squamous Epithelial Cell,Urine 3 /hpf (0-4); Urobilinogen,Urine <2.0 mg/dL (<2.0); WBC,Urine 49 /hpf (0-5)
--- NOTE | 2017-07-25 03:33 | CT ---
EXAMINATION TYPE: CT abdomen pelvis wo con DATE OF EXAM: 07/25/2017 COMPARISON: 08/28/2015 HISTORY: fever, pain CT DLP: 1161.70 mGycm Automated exposure control for dose reduction was used. TECHNIQUE: Helical acquisition of images was performed from the lung bases through the pelvis. FINDINGS: There are small pleural effusions. There is no pericardial effusion. There is interstitial infiltrate and atelectasis at the lung bases. Liver shows no focal defect. Bile ducts are not dilated. There are clips from cholecystectomy. The sp molly appears normal. There is no evidence of a pancreatic mass. There is no adrenal mass. Kidneys have normal size and contour. There are multiple calcifications in both kidneys that measure up to 4 mm. There is no hydronephrosis. Ureters are not dilated. Some renal calcification is vascular. There is no retroperitoneal adenopathy. There is no ascites. Bladder distends smoothly. There is air in the urinary bladder. Uterus is anteverted. There is uterine calcification consistent with small fi broids. There is atherosclerotic vascular calcification. I see no intestinal wall thickening. There are no dilated loops. There is degenerative disc space geronimo rowing at L5-S1. I see no bony destructive process. There is no compression fracture. IMPRESSION: RENAL CALCIFICATION IS APPEARS MOSTLY VASCULAR. NO HYDRONEPHROSIS. NORMAL APPENDIX. AIR IN THE URINARY BLADDER APPARENTLY FROM CATHETERIZATION. THERE IS SIGNIFICANT DECREASED PLEURAL EFFUSIONS COMPARED TO OLD EXAM. THERE IS SOME INTERSTITIAL INFILTRATE AND ATELECTASIS AT THE LUNG BASES WHICH CAN BE A CAUSE FOR FEVE R.
[2017-07-25] MEDS ORDERED: LEVOFLOXACIN 750MG-D5W PMX 750 MG in DEXTROSE/WATER 1 150ML.BAG IVPB STA (03:45)
[2017-07-25] MEDS ORDERED: PNEUMONIA PROTOCOL UTILIZED 1 EACH MISC PO PRN (03:50)
[2017-07-25] MEDS ORDERED: MECLIZINE 12.5 MG TAB PO PRN (03:52)
[2017-07-25] MEDS ORDERED: NITROGLYCERIN SL TABS 0.4 MG TAB SUBLINGUAL PRN (03:52)
--- NOTE | 2017-07-25 03:54 | ED ---
General Adult HPI - General Chief complaint: Chest Pain Stated complaint: Chest Pain Time Seen by Provider: 07/25/17 00:57 Source: patient Mode of arrival: EMS Limitations: no limitations - History of Present Illness Initial comments: This patient is a 66-year-old woman who presents to be evaluated for pain to the torso along the costal margin. The patient indicates the area basically from the epigastrium along the left costal margin and to the midaxillary line. The patient states it is somewhat achy. It is been going on for about 3 hours. Moderate intensity. She has not noted relieving factors, and has noted that the pain is worsened if she presses on that area. -: hour(s) Location: chest Radiation: non-radiation Quality: dull Consistency: constant Improves with: none Worsens with: none Associated Symptoms: fever/chills Treatments Prior to Arrival: none - Related Data Home Medications Medication Instructions Recorded Confirmed Multivitamins, Thera [Multivitamin 1 tab PO DAILY 07/02/15 07/25/17 (formulary)] Atorvastatin [Lipitor] 80 mg PO DAILY 08/01/15 07/25/17 Isosorbide Mononitrate ER [Imdur] 30 mg PO QAM 08/01/15 07/25/17 Levothyroxine Sodium [Synthroid] 75 mcg PO DAILY 05/01/16 07/25/17 Meclizine [Antivert] 12.5 mg PO BID PRN 11/18/16 07/25/17 Carvedilol [Coreg] 37.5 mg PO BID 07/25/17 07/25/17 INSULIN LISPRO (humaLOG) [humaLOG] See Protocol SQ AC-TID 07/25/17 07/25/17 Insulin Glargine,Hum.rec.anlog 25 unit SQ BID 07/25/17 07/25/17 [Lantus Solostar] Pantoprazole [Protonix] 40 mg PO DAILY 07/25/17 07/25/17 Previous Rx's Medication Instructions Recorded Nitroglycerin Sl Tabs [Nitrostat] 0.4 mg SUBLINGUAL Q5M PRN #25 tab 04/03/15 Aspirin 81 mg PO DAILY #1 chewable 06/05/15 Citalopram Hydrobromide [CeleXA] 20 mg PO DAILY tab 08/14/16 Spironolactone [Aldactone] 25 mg PO DAILY #30 tab 09/23/16 Clopidogrel [Plavix] 75 mg PO DAILY #90 tab 11/26/16 Allergies Allergy/AdvReac Type Severity Reaction Status Date / Time No Known Allergies Allergy Verified 11/21/16 11:16 Review of Systems ROS Statement: Those systems with pertinent positive or pertinent negative responses have been documented in the HPI. ROS Other: All systems not noted in ROS Statement are negative. Constitutional: Reports: fever. Denies: chills Respiratory: Denies: cough, dyspnea, hemoptysis Cardiovascular: Denies: chest pain, palpitations Gastrointestinal: Denies: abdominal pain, vomiting, diarrhea Genitourinary: Denies: dysuria, hematuria Musculoskeletal: Denies: back pain Skin: Denies: rash Neurological: Denies: headache, weakness, numbness Past Medical History Past Medical History: Chest Pain / Angina, Diabetes Mellitus, Hyperlipidemia, Hypertension, Myocardial Infarction (CA), Renal Disease, Sleep Apnea/CPAP/BIPAP Additional Past Medical History / Comment(s): right cataract, coronary artery disease with Stent to Proximal LAD 03/31/2015, Last Myocardial Infarction Date:: 03/31/2015 History of Any Multi-Drug Resistant Organisms: None Reported Past Surgical History: Breast Surgery, Heart Catheterization, Heart Catheterization With Stent Additional Past Surgical History / Comment(s): left breast bx-neg, buttocks sx- pt stated:" they told me I had gangrene and had sx to remove", lt cataract, HEART CATH 11/18/16 Past Anesthesia/Blood Transfusion Reactions: No Reported Reaction Date of Last Stent Placement:: 2014 Past Psychological History: Depression Smoking Status: Never smoker Past Alcohol Use History: None Reported Past Drug Use History: None Reported - Past Family History Father Family Medical History: Unable to Obtain Mother Family Medical History: Diabetes Mellitus, Hypertension General Exam Limitations: no limitations General appearance: alert, in no apparent distress, obese Head exam: Present: atraumatic, normocephalic Eye exam: Present: normal appearance. Absent: scleral icterus, conjunctival injection ENT exam: Present: normal exam, normal oropharynx. Absent: mucous membranes dry , mucous membranes moist Neck exam: Present: normal inspection Respiratory exam: Present: normal lung sounds bilaterally. Absent: respiratory distress, wheezes, rales, rhonchi, stridor Cardiovascular Exam: Present: regular rate, normal rhythm, normal heart sounds. Absent: systolic murmur, diastolic murmur, rubs, gallop GI/Abdominal exam: Present: soft, tenderness. Absent: distended, guarding, rebound Extremities exam: Present: normal inspection, normal capillary refill. Absent: pedal edema, calf tenderness Back exam: Present: normal inspection. Absent: CVA tenderness (R), CVA tenderness (L) Neurological exam: Present: alert Skin exam: Present: warm, dry, intact, normal color. Absent: rash Course Vital Signs 07/25/17 07/25/17 07/25/17 00:44 01:45 03:27 Temperature 101.2 F H Pulse Rate 85 88 86 Pulse Rate [ Supine Pulse Oximetery] Respiratory 32 H 24 24 Rate Blood Pressure 168/74 169/71 154/67 Blood Pressure [Right Arm Supine] O2 Sat by Pulse 97 96 96 Oximetry 07/25/17 07/25/17 03:30 04:01 Temperature 99.7 F H 100.6 F H Pulse Rate Pulse Rate [ 88 Supine Pulse Oximetery] Respiratory 18 Rate Blood Pressure Blood Pressure 150/67 [Right Arm Supine] O2 Sat by Pulse 98 Oximetry Medical Decision Making - Lab Data Result diagrams: 07/25/17 00:55 07/25/17 00:55 Lab Results 07/25/17 07/25/17 07/25/17 Range/Units 00:55 00:55 00:55 WBC 13.6 H (3.8-10.6) k/uL RBC 3.52 L (3.80-5.40) m/uL Hgb 10.6 L (11.4-16.0) gm/dL Hct 32.4 L (34.0-46.0) % MCV 91.9 (80.0-100.0) fL MCH 30.3 (25.0-35.0) pg MCHC 32.9 (31.0-37.0) g/dL RDW 13.0 (11.5-15.5) % Plt Count 256 (150-450) k/uL Neutrophils % 80 % Lymphocytes % 11 % Monocytes % 6 % Eosinophils % 2 % Basophils % 0 % Neutrophils # 10.9 H (1.3-7.7) k/uL Lymphocytes # 1.4 (1.0-4.8) k/uL Monocytes # 0.9 (0-1.0) k/uL Eosinophils # 0.3 (0-0.7) k/uL Basophils # 0.0 (0-0.2) k/uL PT (9.0-12.0) sec INR (<1.2) APTT (22.0-30.0) sec Sodium 145 (137-145) mmol/L Potassium 4.6 (3.5-5.1) mmol/L Chloride 110 H (98-107) mmol/L Carbon Dioxide 22 (22-30) mmol/L Anion Gap 13 mmol/L BUN 23 H (7-17) mg/dL Creatinine 1.20 H (0.52-1.04) mg/dL Est GFR (CKD-EPI)AfAm 54 (>60 ml/min/1.73 sqM) Est GFR (CKD-EPI)NonAf 47 (>60 ml/min/1.73 sqM) Glucose 134 H (74-99) mg/dL Plasma Lactic Acid Tye (0.7-2.0) mmol/L Calcium 9.4 (8.4-10.2) mg/dL Magnesium 1.9 (1.6-2.3) mg/dL Total Bilirubin 0.4 (0.2-1.3) mg/dL AST 15 (14-36) U/L ALT 17 (9-52) U/L Alkaline Phosphatase 78 (38-126) U/L Total Creatine Kinase 74 (30-135) U/L CK-MB (CK-2) 1.1 (0.0-2.4) ng/mL CK-MB (CK-2) Rel Index 1.5 Troponin I <0.012 (0.000-0.034) ng/mL Total Protein 6.7 (6.3-8.2) g/dL Albumin 4.0 (3.5-5.0) g/dL Urine Color Urine Appearance (Clear) Urine pH (5.0-8.0) Ur Specific Cammal (1.001-1.035) Urine Protein (Negative) Urine Glucose (UA) (Negative) Urine Ketones (Negative) Urine Blood (Negative) Urine Nitrite (Negative) Urine Bilirubin (Negative) Urine Urobilinogen (<2.0) mg/dL Ur Leukocyte Esterase (Negative) Urine RBC (0-5) /hpf Urine WBC (0-5) /hpf Ur Squamous Epith Cells (0-4) /hpf Amorphous Sediment (None) /hpf Urine Bacteria (None) /hpf Hyaline Casts (0-2) /lpf Urine Mucus (None) /hpf Influenza Type A RNA (Not Detectd) Influenza Type B (PCR) (Not Detectd) 07/25/17 07/25/17 07/25/17 Range/Units 00:55 00:55 02:04 WBC (3.8-10.6) k/uL RBC (3.80-5.40) m/uL Hgb (11.4-16.0) gm/dL Hct (34.0-46.0) % MCV (80.0-100.0) fL MCH (25.0-35.0) pg MCHC (31.0-37.0) g/dL RDW (11.5-15.5) % Plt Count (150-450) k/uL Neutrophils % % Lymphocytes % % Monocytes % % Eosinophils % % Basophils % % Neutrophils # (1.3-7.7) k/uL Lymphocytes # (1.0-4.8) k/uL Monocytes # (0-1.0) k/uL Eosinophils # (0-0.7) k/uL Basophils # (0-0.2) k/uL PT 9.8 (9.0-12.0) sec INR 1.0 (<1.2) APTT 23.1 (22.0-30.0) sec Sodium (137-145) mmol/L Potassium (3.5-5.1) mmol/L Chloride (98-107) mmol/L Carbon Dioxide (22-30) mmol/L Anion Gap mmol/L BUN (7-17) mg/dL Creatinine (0.52-1.04) mg/dL Est GFR (CKD-EPI)AfAm (>60 ml/min/1.73 sqM) Est GFR (CKD-EPI)NonAf (>60 ml/min/1.73 sqM) Glucose (74-99) mg/dL Plasma Lactic Acid Tye 0.8 (0.7-2.0) mmol/L Calcium (8.4-10.2) mg/dL Magnesium (1.6-2.3) mg/dL Total Bilirubin (0.2-1.3) mg/dL AST (14-36) U/L ALT (9-52) U/L Alkaline Phosphatase (38-126) U/L Total Creatine Kinase (30-135) U/L CK-MB (CK-2) (0.0-2.4) ng/mL CK-MB (CK-2) Rel Index Troponin I (0.000-0.034) ng/mL Total Protein (6.3-8.2) g/dL Albumin (3.5-5.0) g/dL Urine Color Urine Appearance (Clear) Urine pH (5.0-8.0) Ur Specific Cammal (1.001-1.035) Urine Protein (Negative) Urine Glucose (UA) (Negative) Urine Ketones (Negative) Urine Blood (Negative) Urine Nitrite (Negative) Urine Bilirubin (Negative) Urine Urobilinogen (<2.0) mg/dL Ur Leukocyte Esterase (Negative) Urine RBC (0-5) /hpf Urine WBC (0-5) /hpf Ur Squamous Epith Cells (0-4) /hpf Amorphous Sediment (None) /hpf Urine Bacteria (None) /hpf Hyaline Casts (0-2) /lpf Urine Mucus (None) /hpf Influenza Type A RNA Not Detected (Not Detectd) Influenza Type B (PCR) Not Detected (Not Detectd) 07/25/17 Range/Units 02:32 WBC (3.8-10.6) k/uL RBC (3.80-5.40) m/uL Hgb (11.4-16.0) gm/dL Hct (34.0-46.0) % MCV (80.0-100.0) fL MCH (25.0-35.0) pg MCHC (31.0-37.0) g/dL RDW (11.5-15.5) % Plt Count (150-450) k/uL Neutrophils % % Lymphocytes % % Monocytes % % Eosinophils % % Basophils % % Neutrophils # (1.3-7.7) k/uL Lymphocytes # (1.0-4.8) k/uL Monocytes # (0-1.0) k/uL Eosinophils # (0-0.7) k/uL Basophils # (0-0.2) k/uL PT (9.0-12.0) sec INR (<1.2) APTT (22.0-30.0) sec Sodium (137-145) mmol/L Potassium (3.5-5.1) mmol/L Chloride (98-107) mmol/L Carbon Dioxide (22-30) mmol/L Anion Gap mmol/L BUN (7-17) mg/dL Creatinine (0.52-1.04) mg/dL Est GFR (CKD-EPI)AfAm (>60 ml/min/1.73 sqM) Est GFR (CKD-EPI)NonAf (>60 ml/min/1.73 sqM) Glucose (74-99) mg/dL Plasma Lactic Acid Tye (0.7-2.0) mmol/L Calcium (8.4-10.2) mg/dL Magnesium (1.6-2.3) mg/dL Total Bilirubin (0.2-1.3) mg/dL AST (14-36) U/L ALT (9-52) U/L Alkaline Phosphatase (38-126) U/L Total Creatine Kinase (30-135) U/L CK-MB (CK-2) (0.0-2.4) ng/mL CK-MB (CK-2) Rel Index Troponin I (0.000-0.034) ng/mL Total Protein (6.3-8.2) g/dL Albumin (3.5-5.0) g/dL Urine Color Light Yellow Urine Appearance Cloudy H (Clear) Urine pH 5.0 (5.0-8.0) Ur Specific Cammal 1.011 (1.001-1.035) Urine Protein 1+ H (Negative) Urine Glucose (UA) Negative (Negative) Urine Ketones Negative (Negative) Urine Blood Small H (Negative) Urine Nitrite Negative (Negative) Urine Bilirubin Negative (Negative) Urine Urobilinogen <2.0 (<2.0) mg/dL Ur Leukocyte Esterase Large H (Negative) Urine RBC 2 (0-5) /hpf Urine WBC 49 H (0-5) /hpf Ur Squamous Epith Cells 3 (0-4) /hpf Amorphous Sediment Rare H (None) /hpf Urine Bacteria Many H (None) /hpf Hyaline Casts 3 H (0-2) /lpf Urine Mucus Rare H (None) /hpf Influenza Type A RNA (Not Detectd) Influenza Type B (PCR) (Not Detectd) Disposition Clinical Impression: Urinary tract infection, Pneumonia Disposition: ADMITTED IP TO THIS HOSP Condition: Fair Is patient prescribed a controlled substance at d/c from ED?: No
[2017-07-25] MEDS: SODIUM CHLORIDE 0.9% 1,000 ML IV SCH (05:29)
[2017-07-25] MEDS: LEVOTHYROXINE 75 MCG TAB PO SCH (06:36)
[2017-07-25] MEDS ORDERED: CARVEDILOL 12.5 MG TAB PO SCH (07:30)
[2017-07-25 08:07] LABS: Glucose,Whole Blood 178 mg/dL (75-99)
[2017-07-25] MEDS ORDERED: INSULIN DETEMIR 100 UNIT/ML 10 ML VIAL SQ SCH (09:00)
[2017-07-25] MEDS: INSULIN ASPART 100 UNIT/ML 1 ML 10 ML VIAL SQ SCH ×3 (09:08→17:18)
[2017-07-25] MEDS: LEVOFLOXACIN 750MG-D5W PMX 750 MG in DEXTROSE/WATER 1 150ML.BAG IVPB SCH (09:09)
[2017-07-25] MEDS: CITALOPRAM HYDROBROMIDE 20 MG TAB PO SCH (09:09)
[2017-07-25] MEDS: ASPIRIN 81 MG PO SCH (09:09)
[2017-07-25] MEDS: ATORVASTATIN 80 MG TAB PO SCH (09:09)
[2017-07-25] MEDS: CLOPIDOGREL 75 MG TAB PO SCH (09:09)
[2017-07-25] MEDS: ISOSORBIDE MONONITRATE ER 30 MG TAB.ER.24H PO SCH (09:10)
[2017-07-25] MEDS: SPIRONOLACTONE 25 MG TAB PO SCH (09:10)
[2017-07-25 12:31] LABS: Glucose,Whole Blood 99 mg/dL (75-99)
[2017-07-25] MEDS ORDERED: MAGNESIUM HYDROXIDE 2,400 MG/10 ML CUP PO PRN (16:42)
[2017-07-25] MEDS ORDERED: ACETAMINOPHEN TAB 325 MG TAB PO PRN (16:42)
[2017-07-25] MEDS ORDERED: CALCIUM CARBONATE 500 MG CHEWABLE PO PRN (16:42)
[2017-07-25] MEDS ORDERED: LACTULOSE 20 GM/30 ML CUP PO PRN (16:42)
[2017-07-25] MEDS ORDERED: ONDANSETRON 4 MG/2 ML VIAL IVP PRN (16:42)
[2017-07-25] MEDS ORDERED: ALPRAZolam 0.25 MG TAB PO PRN (16:42)
[2017-07-25] MEDS ORDERED: NALOXONE 0.4 MG/ML 1 ML VIAL IV PRN (16:42)
[2017-07-25] MEDS ORDERED: MELATONIN 3 MG TABLET PO PRN (16:42)
[2017-07-25 17:17] LABS: Glucose,Whole Blood 77 mg/dL (75-99)
[2017-07-25] MEDS: CARVEDILOL 12.5 MG TAB PO SCH (17:17)
[2017-07-25] MEDS: PANTOPRAZOLE 40 MG TABLET PO SCH (17:17)
--- NOTE | 2017-07-25 18:09 | HP ---
HISTORY AND PHYSICAL DATE OF SERVICE: 07/25/2017 PRESENTING COMPLAINT: Fever, chills. HISTORY OF PRESENTING COMPLAINT: This is a very pleasant 66-year-old patient of Dr. Moore. Chronic stable medical conditions include congestive heart failure, hypertensive heart disease, secondary pulmonary hypertension, moderate mitral regurgitation, coronary artery disease with stent in December of 2014, hyperlipidemia, diabetes, depression, chronic kidney disease, stage III. Yesterday patient was at home; always wears a blanket and goes around and decided to go outside when she came back, she started feeling hot and having chills. The patient had some pain in the throat area and some in the epigastric area; very slight cough. Denied any major shortness of breath. Some discomfort in the left arm. The patient here was noted to have a fever of 101 and patient was started on antibiotic for pneumonia. There was not much shortness of breath. No perspiration. No nausea. REVIEW OF SYSTEMS: CONSTITUTIONAL: Fever, chills. Tired. HEENT: None. RESPIRATORY: As above. CARDIOVASCULAR: As above. GASTROINTESTINAL: None. GENITOURINARY: None. MUSCULOSKELETAL: None. DERMATOLOGICAL: None. HEMATOLOGICAL: None. LYMPHATICS: None. PSYCHIATRY: None. NEUROLOGICAL: None. PAST MEDICAL HISTORY: 1. CHF. 2. Hypertensive heart disease. 3. Secondary pulmonary hypertension. 4. Moderate mitral regurgitation. 5. Coronary artery disease with stent in December of 2014. 6. Hyperlipidemia. 7. Diabetes. 8. Depression. 9. Chronic kidney disease, stage III. PAST SURGICAL HISTORY: 1. Breast surgery. 2. Cardiac cath with stent. 3. Left breast biopsy (negative). 4. Buttock surgery for gangrene removal. SOCIAL HISTORY: . Does not smoke or drink alcohol. FAMILY HISTORY: Reviewed; noncontributory to presentation. HOME MEDICATIONS: 1. Aldactone 25 mg a day. 2. Protonix 40 mg a day. 3. Nitrostat 0.4 sublingually q.5 p.r.n. 4. Multivitamin 1 tablet p.o. daily. 5. Antivert 12.5 p.o. b.i.d. p.r.n. 6. Synthroid 75 mcg a day. 7. Imdur ER 30 mg a day. 8. Insulin Lantus 25 units subcutaneously b.i.d. 9. Humalog before meals t.i.d. 10.Plavix 75 mg p.o. daily. 11.Celexa 20 mg p.o. daily. 12.Coreg 37.5 p.o. b.i.d. 13.Lipitor 80 mg p.o. daily. 14.Aspirin 81 mg p.o. daily. ALLERGIES: NONE. PHYSICAL EXAMINATION: VITAL SIGNS ON PRESENTATION: Temperature 101.2, pulse 85, respiration 32, blood pressure 160/74, pulse ox 97% on 2 L. GENERAL APPEARANCE: Well built; BMI 39.2. Lying in bed, tired-appearing. EYES: Pupils equal. Conjunctivae normal. HEENT: External appearance of nose and ears normal. Oral cavity normal. NECK: JVD not raised. Mass not palpable. RESPIRATORY: Effort normal. LUNGS: Slightly decreased breath sounds. CARDIOVASCULAR: First and second sounds normal. No edema. ABDOMEN: Soft, nontender. Liver and spleen not palpable. LYMPHATIC: No lymph node palpable in neck or axillae. PSYCHIATRY: Alert and oriented x3. Mood and affect normal. NEUROLOGICAL: Pupils equal. Cranial nerves grossly intact. Power and sensation grossly intact. INVESTIGATIONS: White count 13.6, hemoglobin 10.6, potassium 4.6, BUN 23, creatinine 1.20. UA positive for leukocyte esterase, WBC. Influenza A and B negative. Chest x-ray nonspecific. CT scan of the abdomen nonspecific. Some left lung infiltrate. ASSESSMENT: 1. Fever, likely from urinary tract infection, though patient's symptoms are present more in the chest and neck. Either way, patient will be covered with antibiotics. 2. Secondary pulmonary hypertension. 3. Moderate mitral regurgitation, non-rheumatic. 4. Coronary artery disease with prior history of stent in December 2014. 5. Hyperlipidemia. 6. Depression not otherwise specified. 7. Chronic kidney disease, stage III. 8. Diabetes mellitus, type 2, chronically on insulin. 9. Obesity; body mass index 39.2. PLAN: Patient is on IV insulin. Will do a couple more troponins just to make sure because patient had some neck and arm pain, and given history of coronary artery disease. Care was discussed with the patient and her at the bedside. Questions were answered. MMODL / IJN: [id number] /
[2017-07-25 21:57] LABS: Glucose,Whole Blood 90 mg/dL (75-99)
[2017-07-25] MEDS: INSULIN DETEMIR 100 UNIT/ML 10 ML VIAL SQ SCH (23:31)
[2017-07-26] MEDS: SODIUM CHLORIDE 0.9% 1,000 ML IV SCH (05:40)
[2017-07-26] MEDS: LEVOTHYROXINE 75 MCG TAB PO SCH (06:30)
[2017-07-26 07:48] LABS: Glucose,Whole Blood 78 mg/dL (75-99)
[2017-07-26] MEDS: INSULIN ASPART 100 UNIT/ML 1 ML 10 ML VIAL SQ SCH ×2 (10:32→13:58)
[2017-07-26] MEDS: ISOSORBIDE MONONITRATE ER 30 MG TAB.ER.24H PO SCH (10:43)
[2017-07-26] MEDS: CITALOPRAM HYDROBROMIDE 20 MG TAB PO SCH (10:44)
[2017-07-26] MEDS: ATORVASTATIN 80 MG TAB PO SCH (10:45)
[2017-07-26] MEDS: SPIRONOLACTONE 25 MG TAB PO SCH (10:45)
[2017-07-26] MEDS: CARVEDILOL 12.5 MG TAB PO SCH (10:45)
[2017-07-26] MEDS: LEVOFLOXACIN 750MG-D5W PMX 750 MG in DEXTROSE/WATER 1 150ML.BAG IVPB SCH (10:45)
[2017-07-26] MEDS: CLOPIDOGREL 75 MG TAB PO SCH (10:45)
[2017-07-26] MEDS: PANTOPRAZOLE 40 MG TABLET PO SCH (10:45)
[2017-07-26] MEDS: ASPIRIN 81 MG PO SCH (10:45)
[2017-07-26] MEDS: INSULIN DETEMIR 100 UNIT/ML 10 ML VIAL SQ SCH (10:46)
[2017-07-26 12:29] LABS: Glucose,Whole Blood 90 mg/dL (75-99)
[2017-07-26 13:15] LABS: HCT 29.9 % (34.0-46.0); HGB 9.4 gm/dL (11.4-16.0); Hypochromasia Slight; MCH 29.7 pg (25.0-35.0); MCHC 31.4 g/dL (31.0-37.0); MCV 94.5 fL (80.0-100.0); Mean Platelet Volume 7.6; Platelet Count 202 k/uL (150-450); RBC 3.16 m/uL (3.80-5.40); RDW 13.1 % (11.5-15.5); WBC 8.9 k/uL (3.8-10.6)
[2017-07-26 13:32] LABS: Calcium 8.9 mg/dL (8.4-10.2); Potassium 4.9 mmol/L (3.5-5.1)
[2017-07-26 15:51] VITALS: BP 119/62; PULSE 60; RESP 20; TEMP 99.1
--- NOTE | 2017-07-26 22:25 | DS ---
DISCHARGE SUMMARY DATE OF ADMISSION: 07/25/2017. DATE OF DISCHARGE: 07/26/2017. FINAL DIAGNOSES: 1. Acute urinary tract infection. 2. Secondary pulmonary hypertension. 3. Moderate mitral regurgitation, nonrheumatic. 4. Coronary artery with stent in December 2014. 5. Hyperlipidemia. 6. Depression, not otherwise specified. 7. Chronic kidney disease stage 3, probably nephrosclerosis. 8. Diabetes mellitus type 2, chronically on insulin. 9. Obesity; BMI 39.2. HOSPITAL COURSE: This patient presented, found to have fever. Given antibiotics, oral Levaquin. Doing really well. Became afebrile, found to have UTI. Today, tolerating a diet, doing much better, very keen to go. EXAM: Lungs are clear. Cardiovascular, 1st and 2nd sounds normal. Normal white count. The patient's creatinine at baseline is 26/1.40 DC. DISCHARGE MEDICATIONS: 1. Nitrostat 0.4 sublingual every 5h p.r.n. 2. Aspirin 81 mg p.o. daily. 3. Multivitamin 1 tab p.o. daily. 4. Lipitor 80 mg p.o. daily. 5. Imdur ER 30 mg p.o. daily. 6. Synthroid 75 mcg p.o. daily. 7. Celexa 20 mg p.o. daily. 8. Aldactone 25 mg p.o. daily. 9. Antivert 12.5 p.o. b.i.d. p.r.n. 10.Plavix 75 mg p.o. daily. 11.Coreg 37.5 p.o. b.i.d. 12.Humalog per protocol with meals t.i.d. 13.Lantus Solostar 25 units subcu b.i.d. 14.Protonix 40 mg p.o. daily. 15.Levaquin 500 mg p.o. daily for 3 days. FOLLOWUP: Follow up with Dr. Moore in the next 2 days. Home oxygen to continue. MMODL / IJN: [id number] /
== END 2017-07-26 17:22 | disposition home or self-care (01) | DRG 690 ==
LOC: EC 00:43 → 4MS4W 03:54
PROVIDERS: ADMIT Hospitalist; ATTEND Hospitalist
DX: N39.0 Urinary tract infection, site not specified (principal); I13.0 Hypertensive heart and chronic kidney disease with heart failure and stage 1 through stage 4 chronic kidney disease, or unspecified chronic kidney disease; E11.22 Type 2 diabetes mellitus with diabetic chronic kidney disease; E66.9 Obesity, unspecified; E78.5 Hyperlipidemia, unspecified; F32.9 Major depressive disorder, single episode, unspecified; G47.30 Sleep apnea, unspecified; I25.10 Atherosclerotic heart disease of native coronary artery without angina pectoris; I25.2 Old myocardial infarction; I27.29 Other secondary pulmonary hypertension; I34.0 Nonrheumatic mitral (valve) insufficiency; I50.9 Heart failure, unspecified; N18.3 Chronic kidney disease, stage 3 (moderate); Z68.39 Body mass index [BMI] 39.0-39.9, adult; Z79.02 Long term (current) use of antithrombotics/antiplatelets; Z79.4 Long term (current) use of insulin; Z79.82 Long term (current) use of aspirin; Z79.899 Other long term (current) drug therapy; Z82.49 Family history of ischemic heart disease and other diseases of the circulatory system; Z83.3 Family history of diabetes mellitus; Z95.5 Presence of coronary angioplasty implant and graft; Z98.42 Cataract extraction status, left eye; Z79.890 Hormone replacement therapy
CPT/HCPCS: 36415; 71046; 74176; 80048; 80053; 81001; 82550; 82553; 83605; 83735; 84484; 85025; 85027; 85610; 85730; 87040; 87502; 93005; 94760; 96365; 99285

== ENCOUNTER → 2017-10-19 | Outpatient (CLI) | payer MEDICARE ==
[2017-10-19 16:06] LABS: Calcium 9.9 mg/dL (8.4-10.2); Magnesium 1.7 mg/dL (1.6-2.3); Potassium 4.8 mmol/L (3.5-5.1); Uric Acid 10.9 mg/dL (3.7-7.4)
[2017-10-19 16:20] LABS: Basophils % (A) 0 %; Eosinophils # (A) 0.2 k/uL (0-0.7); Eosinophils % (A) 2 %; HCT 36.3 % (34.0-46.0); HGB 11.6 gm/dL (11.4-16.0); Lymphocytes # (A) 1.9 k/uL (1.0-4.8); Lymphocytes % (A) 19 %; MCH 29.3 pg (25.0-35.0); MCHC 32.1 g/dL (31.0-37.0); MCV 91.4 fL (80.0-100.0); Mean Platelet Volume 7.2; Monocytes # (A) 0.4 k/uL (0-1.0); Monocytes % (A) 4 %; Neutrophils # (A) 7.4 k/uL (1.3-7.7); Neutrophils % (A) 74 %; Platelet Count 280 k/uL (150-450); RBC 3.97 m/uL (3.80-5.40); RDW 13.2 % (11.5-15.5)
[2017-10-19 16:55] LABS: Appearance,Urine Turbid (Clear); Bacteria,Urine Many /hpf; Bilirubin,Urine Negative (Negative); Blood,Urine Small (Negative); Budding Yeast,Urine Few /hpf; Color,Urine Light Yellow; Glucose,Urine (UA) Negative (Negative); Ketones,Urine Negative (Negative); Leukocyte Esterase,Urine Large (Negative); Nitrite,Urine Negative (Negative); PH, Urine 5.5 (5.0-8.0); Protein,Urine Trace (Negative); RBC,Urine 16 /hpf (0-5); Squamous Epithelial Cell,Urine 86 /hpf (0-4); Urobilinogen,Urine <2.0 mg/dL (<2.0); WBC,Urine 19 /hpf (0-5)
[2017-10-20 01:38] LABS: Parathyroid Hormone Intact 71.5 pg/mL (14.0-72.0)
[2017-10-20 03:36] LABS: Iron Saturation 23.71 (12.00-45.00)
[2017-10-20 03:43] LABS: Vitamin D 25 Hydroxy 26.8 ng/mL (30.0-100.0)
== END | disposition home or self-care (01) ==
LOC: LABWHC1 15:24
PROVIDERS: ATTEND Nurse Practitioner Family
DX: N18.3 Chronic kidney disease, stage 3 (moderate) (principal); D63.1 Anemia in chronic kidney disease; E55.9 Vitamin D deficiency, unspecified; E21.3 Hyperparathyroidism, unspecified; M10.9 Gout, unspecified; R80.9 Proteinuria, unspecified
CPT/HCPCS: 36415; 80048; 81001; 82306; 82728; 83540; 83550; 83735; 83970; 84100; 84550; 85025

== ENCOUNTER → 2018-02-16 | Outpatient (CLI) | payer MEDICARE ==
--- NOTE | 2018-02-17 15:54 | BD ---
EXAMINATION TYPE: Axial Bone Density DATE OF EXAM: 02/16/2018 COMPARISON: 07/30/2015 CLINICAL HISTORY: Height: 60 IN Weight: 216 LBS FRAX RISK QUESTIONS: Family History (Parent hip fracture): YES MOTHER History of Fracture in Adulthood: Secondary Osteoporosis: RISK FACTORS HISTORY OF: Active: MODERATE Diet low in dairy products/other sources of calcium: YES Postmenopausal woman: AGE 49 MEDICATIONS: Thyroid Medications: YES Which medication: Levothyroxine How Lon YEARS Additional Medications: LOW DOSE ASPIRIN, CARVEDILOL,ALLOPURINOL, DEMADEX, PROTONIX, SYNTHROID, CLOPI DOGREL, CELEXA, MECLIZINE, CALCITROL, MULTI VIT, HUMALOG, LANTIS INJ EXAM MEASUREMENTS: Bone mineral densitometry was performed using the [employer] System. Bone mineral density as measured about the Lumbar spine is: ----- L1-L4(G/cm2): 1.148 T Score Values are as follows: ----- L2: -1.1 ----- L3: 0.5 ----- L4: -0.6 ----- L1-L4: -0.3 Bone mineral density has: Decreased -5.6% since study of: 07/30/2015 Bone mineral density about the R hip (g/cm2): 0.809 Bone mineral density about the L hip (g/cm2): 0.725 T Score values are as follows: -----R Neck: -1.6 -----L Neck: -2.2 -----R Total: -0.7 -----L Total: -1.0 Bone mineral density has: Decreased -10.9% since study of: 07/30/2015 IMPRESSION: Osteopenia (T Score between -2.5 and -1). There is slightly increased risk of fracture and the patient may be considered for treatment. Re-Screen 2-5 years. NOTE: T-SCORE=SD OF THE YOUNG ADULT MEAN.
--- NOTE | 2018-02-18 10:11 | MM ---
Reason for exam: screening (asymptomatic). Last mammogram was performed 2 years and 7 months ago. History: Patient is postmenopausal. Benign left mammotome panel of the left breast, February 16, 2006. MG Screening Mammo w CAD Bilateral CC and MLO view(s) were taken. Prior study comparison: July 30, 2015, bilateral MG 3d screening mammo w/cad. May 30, 2008, mammogram, performed at [facility]. The breast tissue is heterogeneously dense. This may lower the sensitivity of mammography. New found 5cm asymetry in the right breast. ASSESSMENT: Incomplete: need additional imaging evaluation, BI-RAD 0 RECOMMENDATION: Special view mammogram of the right breast.
== END | disposition home or self-care (01) ==
LOC: RADMAMWWP 15:21
PROVIDERS: ATTEND Pediatrics
DX: Z12.31 Encounter for screening mammogram for malignant neoplasm of breast (principal); M85.80 Other specified disorders of bone density and structure, unspecified site
CPT/HCPCS: 77067; 77080

== ENCOUNTER → 2018-03-10 | Outpatient (CLI) | payer MEDICARE ==
--- NOTE | 2018-03-11 12:09 | MM ---
Reason for exam: additional evaluation requested from abnormal screening. Last mammogram was performed 1 month ago. History: Patient is postmenopausal. Benign left mammotome panel of the left breast, February 16, 2006. Physical Findings: Nurse did not find any significant physical abnormalities on exam. MG 3D Work Up W/Cad RT Spot compression CC, spot compression MLO, and LM view(s) were taken of the right breast. Prior study comparison: February 16, 2018, bilateral MG screening mammo w CAD. July 30, 2015, bilateral MG 3d screening mammo w/cad. Nodular density persists. Ultrasound is recommended. These results were verbally communicated with the patient and result sheet given to the patient on 03/10/18. ASSESSMENT: Incomplete: need additional imaging evaluation, BI-RAD 0 RECOMMENDATION: Ultrasound of the right breast.
--- NOTE | 2018-03-11 12:12 | USB ---
Reason for exam: additional evaluation requested from abnormal screening. History: Patient is postmenopausal. Benign left mammotome panel of the left breast, February 16, 2006. US Breast Workup Limited RT Right limited breast ultrasound including focal area of concern, retroareolar and axilla demonstrates a 0.6 x 0.6 x 0.4cm cystic cluster at 10 o'clock, a 0.7 x 0.6 x 0.3cm solid lymph node at 10 o'clock, a 1.1 x 0.8 x 0.3cm cystic cluster at 12 o'clock and a 0.4 x 0.5 x 0.2cm cystic lesion at the poseterior nipple. These results were verbally communicated with the patient and result sheet given to the patient on 03/10/18. ASSESSMENT: Probably benign, BI-RAD 3 RECOMMENDATION: Follow-up diagnostic mammogram and ultrasound of the right breast in 6 months.
== END | disposition home or self-care (01) ==
LOC: RADMAMWWP 14:35
PROVIDERS: ATTEND Pediatrics
DX: R92.8 Other abnormal and inconclusive findings on diagnostic imaging of breast (principal)
CPT/HCPCS: 77065; 76642; G0279; 77061

== ENCOUNTER → 2018-06-11 | Outpatient (CLI) | payer MEDICARE ==
[2018-06-11 13:59] LABS: Anisocytosis Slight; Basophils % (A) 0 %; Eosinophils # (A) 0.3 k/uL (0-0.7); Eosinophils % (A) 5 %; HCT 34.6 % (34.0-46.0); HGB 10.6 gm/dL (11.4-16.0); Hypochromasia Marked; Lymphocytes # (A) 1.2 k/uL (1.0-4.8); Lymphocytes % (A) 19 %; MCH 27.4 pg (25.0-35.0); MCHC 30.5 g/dL (31.0-37.0); MCV 89.7 fL (80.0-100.0); Mean Platelet Volume 6.4; Monocytes # (A) 0.4 k/uL (0-1.0); Monocytes % (A) 6 %; Neutrophils # (A) 4.5 k/uL (1.3-7.7); Neutrophils % (A) 70 %; Platelet Count 291 k/uL (150-450); RBC 3.86 m/uL (3.80-5.40); RDW 16.2 % (11.5-15.5); WBC 6.5 k/uL (3.8-10.6)
[2018-06-11 14:02] LABS: ALT 19 U/L (9-52); AST 14 U/L (14-36); Albumin 3.6 g/dL (3.5-5.0); Albumin/Globulin Ratio 1.2; Alkaline Phosphatase 77 U/L (38-126); Anion Gap 7 mmol/L; Blood Urea Nitrogen 19 mg/dL (7-17); Calcium 9.6 mg/dL (8.4-10.2); Carbon Dioxide 32 mmol/L (22-30); Chloride 102 mmol/L (98-107); Globulin 3.1 g/dL; Glucose 202 mg/dL (74-99); Magnesium 1.5 mg/dL (1.6-2.3); Potassium 3.3 mmol/L (3.5-5.1); Sodium 141 mmol/L (137-145); Total Bilirubin 0.9 mg/dL (0.2-1.3); Total Protein 6.7 g/dL (6.3-8.2)
== END | disposition home or self-care (01) ==
LOC: LABWHC1 13:03
PROVIDERS: ATTEND Pediatrics
DX: R60.9 Edema, unspecified (principal)
CPT/HCPCS: 36415; 80053; 83735; 83880; 85025

== ENCOUNTER 2018-11-26 15:48 | Inpatient (IN) | payer MEDICARE ==
--- NOTE | 2018-11-26 16:22 | ED ---
Chest Pain HPI - General Chief Complaint: Chest Pain Stated Complaint: chest pain Time Seen by Provider: 11/26/18 16:15 Source: patient, EMS Mode of arrival: EMS Limitations: no limitations - History of Present Illness Initial Comments: Patient presents with chest pain. Pain is in the middle of the chest. The pain radiates to the left arm. She did not take any medicine for this, however she was given aspirin and nitro, which largely relieved her pain. She had no diaphoresis, nausea or vomiting. She has no back or belly pain. She has no lightheadedness or dizziness. She denies palpitations. She has no shortness of breath. She has no history of blood clots. She was not doing anything when the pain began. She states it woke her from sleep. - Related Data Home Medications Medication Instructions Recorded Confirmed Multivitamins, Thera [Multivitamin 1 tab PO DAILY 07/02/15 11/26/18 (formulary)] Atorvastatin [Lipitor] 80 mg PO DAILY 08/01/15 11/26/18 Isosorbide Mononitrate ER [Imdur] 30 mg PO DAILY 08/01/15 11/26/18 Levothyroxine Sodium [Synthroid] 75 mcg PO DAILY 05/01/16 11/26/18 Meclizine [Antivert] 12.5 mg PO BID PRN 11/18/16 11/26/18 Pantoprazole [Protonix] 40 mg PO DAILY 07/25/17 11/26/18 Albuterol Inhaler [Ventolin Hfa 2 puff INHALATION RT-Q6H PRN 11/26/18 11/26/18 Inhaler] Allopurinol [Zyloprim] 300 mg PO DAILY 11/26/18 11/26/18 Carvedilol [Coreg] 6.25 mg PO BID 11/26/18 11/26/18 INSULIN ASPART (NovoLOG) [NovoLOG See Protocol SQ AC-TID 11/26/18 11/26/18 (formulary)] Insulin Detemir (Levemir) [Levemir] 30 unit SQ BID 11/26/18 11/26/18 Losartan Potassium 100 mg PO DAILY 11/26/18 11/26/18 Magnesium Oxide [Razo] 500 mg PO DAILY 11/26/18 11/26/18 Nitroglycerin Sl Tabs [Nitrostat] 0.4 mg SUBLINGUAL Q5M PRN 11/26/18 11/26/18 Potassium Chloride ER [K-Dur 20] 20 meq PO DAILY 11/26/18 11/26/18 Torsemide [Demadex] 20 mg PO BID 11/26/18 11/26/18 amLODIPine [Norvasc] 10 mg PO DAILY 11/26/18 11/26/18 Previous Rx's Medication Instructions Recorded Aspirin 81 mg PO DAILY #1 chewable 06/05/15 Citalopram Hydrobromide [CeleXA] 20 mg PO DAILY tab 08/14/16 Spironolactone [Aldactone] 25 mg PO DAILY #30 tab 09/23/16 Allergies Allergy/AdvReac Type Severity Reaction Status Date / Time No Known Allergies Allergy Verified 11/26/18 16:02 Review of Systems ROS Statement: Those systems with pertinent positive or pertinent negative responses have been documented in the HPI. ROS Other: All systems not noted in ROS Statement are negative. EKG Findings - EKG Comments: EKG Findings:: Twelve-lead EKG shows ventricular rate 74 bpm, normal [place] interval, the QRS, axis are wide, there is no ST elevation or depression, interpreted by me as sinus rhythm with a left bundle-branch block. This does not meet Scarbossa's criteria for ST elevation [place]. Past Medical History Past Medical History: Chest Pain / Angina, Diabetes Mellitus, Hyperlipidemia, Hypertension, Myocardial Infarction ([place]), Renal Disease, Sleep Apnea/CPAP/BIPAP Additional Past Medical History / Comment(s): right cataract, coronary artery disease with Stent to Proximal LAD 03/31/2015, Last Myocardial Infarction Date:: 03/31/2015 History of Any Multi-Drug Resistant Organisms: None Reported Past Surgical History: Breast Surgery, Heart Catheterization, Heart Catheterization With Stent Additional Past Surgical History / Comment(s): left breast bx-neg, buttocks sx- pt stated:" they told me I had gangrene and had sx to remove", lt cataract, HEART CATH 11/18/16 Past Anesthesia/Blood Transfusion Reactions: No Reported Reaction Date of Last Stent Placement:: 2014 Past Psychological History: Depression Smoking Status: Never smoker Past Alcohol Use History: None Reported Past Drug Use History: None Reported - Past Family History Father Family Medical History: Unable to Obtain Mother Family Medical History: Diabetes Mellitus, Hypertension General Exam Limitations: no limitations General appearance: alert, in no apparent distress Head exam: Present: atraumatic, normocephalic, normal inspection Eye exam: Present: normal appearance, PERRL, EOMI. Absent: scleral icterus, conjunctival injection, periorbital swelling ENT exam: Present: normal exam, mucous membranes moist Neck exam: Present: normal inspection. Absent: tenderness, meningismus, lymphadenopathy Respiratory exam: Present: normal lung sounds bilaterally. Absent: respiratory distress, wheezes, rales, rhonchi, stridor Cardiovascular Exam: Present: regular rate, normal rhythm, normal heart sounds. Absent: systolic murmur, diastolic murmur, rubs, gallop, clicks GI/Abdominal exam: Present: soft, normal bowel sounds. Absent: distended, tenderness, guarding, rebound, rigid Extremities exam: Present: normal inspection, full ROM, normal capillary refill. Absent: tenderness, pedal edema, joint swelling, calf tenderness Back exam: Present: normal inspection Neurological exam: Present: alert, oriented X3, CN II-XII intact Psychiatric exam: Present: normal affect, normal mood Skin exam: Present: warm, dry, intact, normal color. Absent: rash Course Vital Signs 11/26/18 11/26/18 11/26/18 15:59 16:05 17:32 Temperature 97.8 F Pulse Rate 74 73 Pulse Rate [ 73 [employer] ] Respiratory 18 18 Rate Blood Pressure 168/81 167/87 O2 Sat by Pulse 98 97 Oximetry Chest Pain [facility]DM - [facility] Patient presents with chest pain. I'm concerned for acute coronary syndrome. The patient will be admitted to the hospital. Disposition Clinical Impression: Chest pain Disposition: ADMITTED IP TO THIS HOSP Condition: Fair Referrals: Eduin Moore MD [Primary Care Provider] - 1-2 days
[2018-11-26 16:31] LABS: Basophils % (A) 1 %; Eosinophils # (A) 0.7 k/uL (0-0.7); Eosinophils % (A) 9 %; HCT 33.5 % (34.0-46.0); HGB 10.7 gm/dL (11.4-16.0); Lymphocytes # (A) 1.5 k/uL (1.0-4.8); Lymphocytes % (A) 19 %; MCH 29.3 pg (25.0-35.0); MCHC 31.8 g/dL (31.0-37.0); MCV 92.1 fL (80.0-100.0); Mean Platelet Volume 7.1; Monocytes # (A) 0.4 k/uL (0-1.0); Monocytes % (A) 5 %; Neutrophils # (A) 5.4 k/uL (1.3-7.7); Neutrophils % (A) 66 %; Platelet Count 226 k/uL (150-450); RBC 3.63 m/uL (3.80-5.40); RDW 14.1 % (11.5-15.5); WBC 8.2 k/uL (3.8-10.6)
[2018-11-26 16:40] LABS: Albumin 3.5 g/dL (3.5-5.0); Calcium 9.1 mg/dL (8.4-10.2); INR 0.9 (<1.2); Magnesium 1.7 mg/dL (1.6-2.3); Partial Thromboplastin Time 25.8 sec (22.0-30.0); Potassium 4.5 mmol/L (3.5-5.1); Prothrombin Time 9.9 sec (9.0-12.0); Total Bilirubin 0.5 mg/dL (0.2-1.3); Total Protein 6.6 g/dL (6.3-8.2)
--- NOTE | 2018-11-26 17:03 | XR ---
EXAMINATION TYPE: XR chest 2V DATE OF EXAM: 11/26/2018 COMPARISON: 07/25/2017 HISTORY: Chest pain TECHNIQUE: Frontal and lateral views of the chest are obtained. FINDINGS: Heart is normal. Lungs are clear of infiltrate. There are chest leads. Costophrenic angles are clear. IMPRESSION: No active cardiopulmonary disease. No change.
[2018-11-26] MEDS ORDERED: NALOXONE 0.4 MG/ML 1 ML VIAL IV PRN (18:43)
[2018-11-26] MEDS ORDERED: NITROGLYCERIN SL TABS 0.4 MG TAB SUBLINGUAL PRN (18:45)
[2018-11-26] MEDS ORDERED: ALBUTEROL NEBULIZED 2.5 MG/3 ML INHALATION PRN (18:45)
[2018-11-26 20:24] LABS: Glucose,Whole Blood 127 mg/dL (75-99)
[2018-11-26] MEDS: TORSEMIDE 20 MG TAB PO SCH (21:10)
[2018-11-26] MEDS: CARVEDILOL 6.25 MG TAB PO SCH (21:10)
[2018-11-26] MEDS: INSULIN DETEMIR (LEVEMIR) 100 UNIT/ML SYR SQ SCH (21:11)
[2018-11-27] MEDS: LEVOTHYROXINE 75 MCG TAB PO SCH (06:12)
[2018-11-27 06:39] LABS: Glucose,Whole Blood 196 mg/dL (75-99)
[2018-11-27] MEDS ORDERED: ACETAMINOPHEN TAB 325 MG TAB PO PRN (07:47)
[2018-11-27] MEDS: POTASSIUM CHLORIDE ER 20 MEQ TAB.ER PO SCH (09:04)
[2018-11-27] MEDS: ATORVASTATIN 80 MG TAB PO SCH (09:04)
[2018-11-27] MEDS: CITALOPRAM HYDROBROMIDE 20 MG TAB PO SCH (09:04)
[2018-11-27] MEDS: ASPIRIN 81 MG PO SCH (09:04)
[2018-11-27] MEDS: amLODIPine 10 MG TAB PO SCH (09:04)
[2018-11-27] MEDS: MAGNESIUM OXIDE 400 MG TAB PO SCH (09:05)
[2018-11-27] MEDS: CARVEDILOL 6.25 MG TAB PO SCH ×2 (09:05→17:28)
[2018-11-27] MEDS: TORSEMIDE 20 MG TAB PO SCH (09:05)
[2018-11-27] MEDS: SPIRONOLACTONE 25 MG TAB PO SCH (09:05)
[2018-11-27] MEDS: PANTOPRAZOLE 40 MG TABLET PO SCH (09:05)
[2018-11-27] MEDS: LOSARTAN 50 MG TAB PO SCH (09:05)
[2018-11-27] MEDS: INSULIN ASPART (NovoLOG) 100 UNIT/ML VIAL SQ SCH ×3 (10:47→17:29)
[2018-11-27] MEDS: ALLOPURINOL 300 MG TAB PO SCH (11:02)
[2018-11-27] MEDS: INSULIN DETEMIR (LEVEMIR) 100 UNIT/ML SYR SQ SCH ×2 (11:02→21:36)
--- NOTE | 2018-11-27 11:39 | P.CRDCN ---
History of Present Illness History of present illness: This is a pleasant 67-year-old female past medical history significant for coronary artery disease status post stent placement, diabetes mellitus, hypertension, dyslipidemia and chronic kidney disease. She follows in the office with Dr. Nagy. We've been asked to see her in consultation secondary to chest discomfort. She woke up at 1:00 in the morning on evening with a sharp pressure-like pain in the left precordial region that radiated into the left axilla, down the left arm into the base of the left neck. This was not associated with shortness of breath, nausea, vomiting, diaphoresis or palpitations. The pain was rather constant through the rest of the evening and into the morning. Around 4 in the afternoon the pain became unbearable and she came to the hospital for further evaluation. When EMS arrived they gave her 3 sublingual nitroglycerin which did relieve her discomfort. She has had no further symptoms of chest discomfort since arriving at the hospital. He Examined resting comfortably in bed in no acute distress. EKG reveals sinus mechanism heart rate of 74 with left bundle branch block. Consistent with previous EKGs. Chest x-ray is negative for acute cardiopulmonary process. Laboratory data reviewed, WBC 8.2, hemoglobin 10.7, platelets 226, sodium 139, potassium 4.5, creatinine 1.78 with a GFR of 29, magnesium 1.7, cardiac enzymes negative 3, proBNP 1620. Current cardiac medications include amlodipine 10 mg daily, Demadex 20 mg twice a day, Aldactone 25 mg daily, losartan 100 mg daily, Imdur 30 mg daily, carvedilol 6.25 mg twice a day, atorvastatin 80 mg daily and aspirin 81 mg daily. Most recent stress test performed in April 2017 with a Lexiscan stress test was negative for reversible ischemia with a fixed mid anterior wall defect secondary to soft tissue attenuation. Most recent cardiac catheterization 2017 reveals left main coronary artery free of stenosis, circumflex free of stenosis, LAD previously stented in the mid and distal portion. In the proximal LAD 50-60% narrowing, RCA free of significant disease. She underwent successful stent placement to the proximal LAD. Most recent echocardiogram obtained 2017 reveals preserved LV systolic function with ejection fraction 55-60%, trace to mild aortic regurgitation, mild to moderate mitral regurgitation, mild tricuspid regurgitation and moderate pulmonary hypertension. At the time of my exam: CONSTITUTIONAL: Denies fever. Denies chills. EYES: Denies blurred vision. Denies vision changes. Denies eye pain. EARS, NOSE, MOUTH & THROAT: Denies headache. Denies sore throat. Denies ear pain. CARDIOVASCULAR: Denies chest pain. Denies shortness of breath. Denies orthopnea. Denies PND. Denies palpitations. RESPIRATORY: Denies cough. GASTROINTESTINAL: Denies abdominal pain. Denies diarrhea. Denies constipation. Denies nausea. Denies vomiting. MUSCULOSKELETAL: Denies myalgias. INTEGUMENTARY: Denies pruitis. Denies rash. NEUROLOGIC: Denies numbness. Denies tingling. Denies weakness. PSYCHIATRIC: Denies anxiety. Denies depression. ENDOCRINE: Denies fatigue. Denies weight change. Denies polydipsia. Denies polyurina. GENITOURINARY: Denies burning, hematuria or urgency with micturation. HEMATOLOGIC: Denies history of anemia. Denies bleeding. GENERAL: This is a 67-year-old female in no apparent distress at the time of my examination. HEENT: Head is atraumatic, normocephalic. Pupils are equal, round. Sclerae anicteric. Conjunctivae are clear. Mucous membranes of the mouth are moist. Neck is supple. There is no jugular venous distention. No carotid bruit is heard. LUNGS: Clear to auscultation no wheezes, rales or rhonchi. No chest wall tenderness is noted on palpation or with deep breathing. HEART: Regular rate and rhythm with systolic ejection murmur at the left sternal border, no rubs or gallops. S1 and S2 heard. ABDOMEN: Soft, nontender. Bowel sounds are heard. No organomegaly noted. EXTREMITIES: No evidence of peripheral edema and no calf tenderness noted. VASCULAR: Radial and dorsalis pedis pulses palpated, no evidence of clubbing. NEUROLOGIC: Patient is awake, alert and oriented x3. ASSESSMENT Precordial chest pain suggestive of angina. History of coronary artery disease status post stent placement to the LAD in the setting of an acute myocardial infarction initially. Dyslipidemia Hypertension Diabetes mellitus Chronic kidney disease, GFR 29 Pulmonary hypertension Valvular heart disease PLAN An acute coronary event has been ruled out. Obtain 2-D echocardiogram and Doppler study to assess cardiac structure and function. Hold Demadex. Repeat BMP in the morning. Increase activity and ambulation and assess for exertional chest discomfort. Further recommendations will be made regarding proceeding with stress testing versus coronary angiography. Thank you kindly for this consultation. Nurse Practitioner note has been reviewed, I agree with a documented findings and plan of care. Patient was seen and examined. Past Medical History Past Medical History: Chest Pain / Angina, Diabetes Mellitus, Hyperlipidemia, Hypertension, Myocardial Infarction ([place]), Renal Disease Additional Past Medical History / Comment(s): right cataract, coronary artery d isease with Stent to Proximal LAD 03/31/2015, Last Myocardial Infarction Date:: 03/31/2015 History of Any Multi-Drug Resistant Organisms: None Reported Past Surgical History: Breast Surgery, Heart Catheterization, Heart Silvia terization With Stent Additional Past Surgical History / Comment(s): left breast bx-neg, buttocks sx- pt stated:" they told me I had gangrene and had sx to remove", lt cataract, HEART CATH 11/18/16 Past Anesthesia/Blood Transfusion Reactions: No Reported Reaction Date of Last Stent Placement:: 2014 Past Psychological History: Depression Smoking Status: Never smoker Past Alcohol Use History: None Reported Past Drug Use History: None Reported - Past Family History Father Family Medical History: Unable to Obtain Mother Family Medical History: Diabetes Mellitus, Hypertension Medications and Allergies Home Medications Medication Instructions Recorded Confirmed Type Aspirin 81 mg PO DAILY #1 chewable 06/05/15 11/26/18 Rx Multivitamins, Thera [Multivitamin 1 tab PO DAILY 07/02/15 11/26/18 History (formulary)] Atorvastatin [Lipitor] 80 mg PO DAILY 08/01/15 11/26/18 History Isosorbide Mononitrate ER [Imdur] 30 mg PO DAILY 08/01/15 11/26/18 History Levothyroxine Sodium [Synthroid] 75 mcg PO DAILY 05/01/16 11/26/18 History Citalopram Hydrobromide [CeleXA] 20 mg PO DAILY tab 08/14/16 11/26/18 Rx Spironolactone [Aldactone] 25 mg PO DAILY #30 tab 09/23/16 11/26/18 Rx Meclizine [Antivert] 12.5 mg PO BID PRN 11/18/16 11/26/18 History Pantoprazole [Protonix] 40 mg PO DAILY 07/25/17 11/26/18 History Albuterol Inhaler [Ventolin Hfa 2 puff INHALATION RT-Q6H PRN 11/26/18 11/26/18 History Inhaler] Allopurinol [Zyloprim] 300 mg PO DAILY 11/26/18 11/26/18 History Carvedilol [Coreg] 6.25 mg PO BID 11/26/18 11/26/18 History INSULIN ASPART (NovoLOG) [NovoLOG See Protocol SQ AC-TID 11/26/18 11/26/18 History (formulary)] Insulin Detemir (Levemir) [Levemir] 30 unit SQ BID 11/26/18 11/26/18 History Losartan Potassium 100 mg PO DAILY 11/26/18 11/26/18 History Magnesium Oxide [Razo] 500 mg PO DAILY 11/26/18 11/26/18 History Nitroglycerin Sl Tabs [Nitrostat] 0.4 mg SUBLINGUAL Q5M PRN 11/26/18 11/26/18 History Potassium Chloride ER [K-Dur 20] 20 meq PO DAILY 11/26/18 11/26/18 History Torsemide [Demadex] 20 mg PO BID 11/26/18 11/26/18 History amLODIPine [Norvasc] 10 mg PO DAILY 11/26/18 11/26/18 History Allergies Allergy/AdvReac Type Severity Reaction Status Date / Time No Known Allergies Allergy Verified 11/26/18 19:49 Physical Exam Vitals: Vital Signs Temp Pulse Pulse Pulse Resp BP BP 11/27/18 08:00 98.2 F 64 18 143/83 11/27/18 04:00 68 18 11/27/18 03:38 98.1 F 68 18 116/73 11/27/18 00:00 98 F 73 18 118/71 11/26/18 20:00 1 L 11/26/18 19:24 98.2 F 95 18 153/84 11/26/18 19:17 98.3 F 77 18 180/87 11/26/18 17:32 73 18 167/87 11/26/18 16:05 73 11/26/18 15:59 97.8 F 74 18 168/81 Pulse Ox 11/27/18 08:00 95 11/27/18 04:00 11/27/18 03:38 97 11/27/18 00:00 96 11/26/18 20:00 11/26/18 19:24 95 11/26/18 19:17 96 11/26/18 17:32 97 11/26/18 16:05 11/26/18 15:59 98 Intake and Output 11/26/18 11/27/18 11/27/18 22:59 06:59 14:59 Intake Total 0 Balance 0 Intake: Oral 0 Other: Voiding Method Toilet Toilet Weight 90.718 kg Results 11/26/18 16:00 11/26/18 16:00 Cardiac Enzymes 11/26/18 11/26/18 11/26/18 Range/Units 16:00 16:00 21:44 AST 15 (14-36) U/L Troponin I <0.012 <0.012 (0.000-0.034) ng/mL 11/27/18 Range/Units 03:39 AST (14-36) U/L Troponin I <0.012 (0.000-0.034) ng/mL Coagulation 11/26/18 Range/Units 16:00 PT 9.9 (9.0-12.0) sec APTT 25.8 (22.0-30.0) sec CBC 11/26/18 Range/Units 16:00 WBC 8.2 (3.8-10.6) k/uL RBC 3.63 L (3.80-5.40) m/uL Hgb 10.7 L (11.4-16.0) gm/dL Hct 33.5 L (34.0-46.0) % Plt Count 226 (150-450) k/uL Comprehensive Metabolic Panel 11/26/18 Range/Units 16:00 Sodium 139 (137-145) mmol/L Potassium 4.5 (3.5-5.1) mmol/L Chloride 108 H (98-107) mmol/L Carbon Dioxide 23 (22-30) mmol/L BUN 45 H (7-17) mg/dL Creatinine 1.78 H (0.52-1.04) mg/dL Glucose 226 H (74-99) mg/dL Calcium 9.1 (8.4-10.2) mg/dL AST 15 (14-36) U/L ALT 12 (9-52) U/L Alkaline Phosphatase 79 (38-126) U/L Total Protein 6.6 (6.3-8.2) g/dL Albumin 3.5 (3.5-5.0) g/dL Current Medications Generic Name Dose Route Start Last Admin Trade Name Freq PRN Reason Stop Dose Admin Acetaminophen 650 mg 11/27/18 07:47 Tylenol Tab PO Q6HR PRN Fever and/ or Pain Albuterol Sulfate 2.5 mg 11/26/18 18:45 Ventolin Nebulized INHALATION RT-Q6H PRN Shortness Of Breath Allopurinol 300 mg 11/27/18 09:00 Zyloprim PO DAILY [facility] Amlodipine Besylate 10 mg 11/27/18 09:00 Norvasc PO DAILY [facility] Aspirin 81 mg 11/27/18 09:00 Aspirin PO DAILY [facility] Atorvastatin Calcium 80 mg 11/27/18 09:00 Lipitor PO DAILY [facility] Carvedilol 6.25 mg 11/26/18 21:00 11/26/18 21:10 Coreg PO 6.25 mg AC-BID [facility] Administration Citalopram Hydrobromide 20 mg 11/27/18 09:00 Celexa PO DAILY [facility] Insulin Aspart 0 unit 11/27/18 07:30 Novolog SQ AC-TID [facility] Protocol Insulin Detemir 30 unit 11/26/18 21:00 11/26/18 21:11 Levemir SQ 30 unit BID [facility] Administration Levothyroxine Sodium 75 mcg 11/27/18 06:30 11/27/18 06:12 Synthroid PO 75 mcg DAILY@0630 [facility] Administration Losartan Potassium 100 mg 11/27/18 09:00 Cozaar PO DAILY [facility] Magnesium Oxide 400 mg 11/27/18 09:00 Mag-Ox PO DAILY [facility] Naloxone HCl 0.2 mg 11/26/18 18:43 Narcan IV Q2M PRN Opioid Reversal Nitroglycerin 0.4 mg 11/26/18 18:45 Nitrostat SUBLINGUAL Q5M PRN Chest Pain Pantoprazole Sodium 40 mg 11/27/18 07:30 Protonix PO AC-BRKFST [facility] Potassium Chloride 20 meq 11/27/18 09:00 K-Dur 20 PO DAILY [facility] Spironolactone 25 mg 11/27/18 09:00 Aldactone PO DAILY [facility] Torsemide 20 mg 11/26/18 21:00 11/26/18 21:10 Demadex PO 20 mg 0900,1800 EVELIA Administration Intake and Output 11/26/18 11/27/18 11/27/18 22:59 06:59 14:59 Intake Total 0 Balance 0 Intake: Oral 0 Other: Voiding Method Toilet Toilet Weight 90.718 kg 11/26/18 16:00 11/26/18 16:00
[2018-11-27 11:44] LABS: Glucose,Whole Blood 313 mg/dL (75-99)
--- NOTE | 2018-11-27 13:00 | ECHOF ---
Referral Reason:cp MEASUREMENTS -------- HEIGHT: 152.4 cm WEIGHT: 90.7 kg BP: 143/83 RVIDd: 3.5 cm (< 3.3) IVSd: 1.3 cm (0.6 - 1.1) LVIDd: 5.6 cm (3.9 - 5.3) LVPWd: 1.4 cm (0.6 - 1.1) IVSs: 1.5 cm LVIDs: 4.8 cm LVPWs: 1.7 cm LA Diam: 4.4 cm (2.7 - 3.8) LAESV Index (A-L): 42.95 ml/m Ao Diam: 2.8 cm (2.0 - 3.7) AV Cusp: 1.9 cm (1.5 - 2.6) MV EXCURSION: 12.495 mm (> 18.000) MV EF SLOPE: 67 mm/s (70 - 150) EPSS: 1.9 cm MV E Ashwin: 1.31 m/s MV DecT: 229 ms MV A Ashwin: 1.12 m/s MV E/A Ratio: 1.16 AR PHT: 1035 ms RAP: 5.00 mmHg RVSP: 79.34 mmHg FINDINGS -------- Sinus rhythm. This was a technically adequate study. The left ventricular size is normal. There is moderate concentric left ventricular hypertrophy. O verall left ventricular systolic function is moderately impaired with, an EF between 35 - 40 %. The right ventricle is mildly enlarged. LA is severely dilated >40 ml/m2 The right atrial size is normal. Interatrial and interventricular septum intact. There is mild aortic valve sclerosis. There is mild aortic regurgitation. The mitral valve leaflets are mildly thickened. Mild mitral annular calcification present. Modera ax-hb-ispsdt mitral regurgitation is present. Moderate tricuspid regurgitation present. There is severe pulmonary hypertension. The right ventr icular systolic pressure, as measured by Doppler, is 79.34mmHg. Trace/mild (physiologic) pulmonic regurgitation. The aortic root size is normal. Normal inferior vena cava with normal inspiratory collapse consistent with estimated right atrial pre ssure of 5 mmHg. The inferior vena cava is mildly dilated. There is no pericardial effusion. CONCLUSIONS -------- 1. Sinus rhythm. 2. This was a technically adequate study. 3. The left ventricular size is normal. 4. There is moderate concentric left ventricular hypertrophy. 5. Overall left ventricular systolic function is moderately impaired with, an EF between 35 - 40 %. 6. The right ventricle is mildly enlarged. 7. LA is severely dilated >40 ml/m2 8. There is mild aortic valve sclerosis. 9. There is mild aortic regurgitation. 10. The mitral valve leaflets are mildly thickened. 11. Mild mitral annular calcification present. 12. Tgqzkaih-dj-afyvzk mitral regurgitation is present. 13. Moderate tricuspid regurgitation present. 14. There is severe pulmonary hypertension. 15. Trace/mild (physiologic) pulmonic regurgitation. 16. The aortic root size is normal. 17. Normal inferior vena cava with normal inspiratory collapse consistent with estimated right atrial pressure of 5 mmHg. 18. The inferior vena cava is mildly dilated. 19. There is no pericardial effusion. METAL FINISH INSPECTOR: Noni Cagle RDCS
[2018-11-27] MEDS ORDERED: MECLIZINE 12.5 MG TAB PO PRN (16:07)
[2018-11-27 16:31] LABS: Glucose,Whole Blood 164 mg/dL (75-99)
--- NOTE | 2018-11-27 19:37 | HP ---
HISTORY AND PHYSICAL DATE OF SERVICE: 11/27/2018 CHIEF COMPLAINT: Chest pain. HISTORY OF PRESENT ILLNESS: This 67-year-old woman with a past medical history of multiple medical problems including diabetes, history of hypertension, history of hyperlipidemia, history of myocardial infarction, history of CAD/stent being followed by Dr. Moore and Dr. Nagy in the outpatient setting, was complaining of chest pain. The pain was felt in the anterior part of the chest which radiated to the left arm. The patient was given aspirin, nitroglycerin. relief of the pain. There was no diaphoresis, nausea, vomiting. No history of any back and stomach pain. The patient came to [facility] and admitted to the hospital for further evaluation and treatment. Cardiology evaluating the patient at this time. The initial troponins are negative. Glucose elevated up to 313. Initial EKG done in the ER showed left bundle branch block. There is no history of fever, rigors, chills at this time. PAST MEDICAL HISTORY: History of diabetes, hypertension, hyperlipidemia, myocardial infarction, CAD, stent, history of breast surgery. MEDICATIONS: Home medications are: 1. Norvasc 10 mg p.o. daily. 2. Demadex 20 mg p.o. b.i.d. 3. Aldactone 25 mg p.o. 4. K-Dur 20 mEq p.o. daily. 5. Protonix 40 mg daily. 6. Nitrostat 0.4 mg sublingual p.r.n. 7. Multivitamins 1 p.o. daily. 8. Antivert 12.5 mg b.i.d. p.r.n. 9. Razo 500 mg p.o. daily. 10.Losartan 100 mg p.o. daily. 11.Synthroid 75 mcg p.o. daily. 12.Imdur 30 mg daily. 13.Levemir 30 units subcu b.i.d. 14.NovoLog a.c. t.i.d. 15.Celexa 20 mg p.o. daily. 16.Coreg 6.25 mg p.o. b.i.d. 17.Lipitor 80 mg p.o. daily. 18.Aspirin 81 mg. 19.Zyloprim 300 mg p.o. daily. 20.Ventolin HFA 2 puffs q.6h p.r.n. ALLERGIES: None. FAMILY HISTORY: No history of heart disease or strokes in the family. SOCIAL HISTORY: No history of smoking. No history of alcohol intake. REVIEW OF SYSTEMS: ENT: No diminished vision. No diminished hearing. CARDIOVASCULAR system: As mentioned earlier. RESPIRATORY: As mentioned earlier. GI no nausea or vomiting. : No dysuria. NERVOUS SYSTEM: No numbness or weakness. ALLERGY/IMMUNOLOGY: No asthma or hayfever. MUSCULOSKELETAL as mentioned earlier. HEMATOLOGY/ONCOLOGY: No history of anemia. ENDOCRINE: History of diabetes and hypothyroidism. CONSTITUTIONAL: As mentioned earlier. DERMATOLOGY: Negative. RHEUMATOLOGY negative. PSYCHIATRY as mentioned earlier. PHYSICAL EXAMINATION: Alert and oriented times three. Pulse 70. Blood pressure 140/79, respiration 16, temp 98.4, pulse ox 98% on room air. HEENT is conjunctivae normal. Oral mucosa moist. NECK is no jugular venous distention. No carotid bruit. No lymph node enlargement. CARDIOVASCULAR: S1, S2 muffled. No S3, no S4. RESPIRATORY: Breath sounds diminished in the bases. No rhonchi. No crackles. ABDOMEN: Soft, obese, nontender. No mass palpable. LEGS: No edema. No swelling. NERVOUS SYSTEM: Higher functions as mentioned earlier. Moves all 4 limbs. No focal motor or sensory deficits. Lymphatics: No lymph nodes palpable in the neck, axillae or groin. SKIN: No ulcers, rashes or bleeding. JOINTS: No active deforming arthropathy. LABS: WBC 8.8, hemoglobin 10.7, sodium 139, potassium 4.5, creatinine 1.78. ASSESSMENT: 1. Chest pain, possible unstable angina. 2. Increased creatinine with possible chronic kidney disease stage III. 3. Diabetes mellitus type 2. 4. Anemia, normocytic anemia of chronic disease. 5. History of chest pain. 6. Hypertension. 7. Hyperlipidemia. 8. History of myocardial infarction. 9. History of renal disease. 10.History of right cataract. 11.History of coronary artery disease with stent to proximal LAD in 2015. 12.Depression. 13.Obesity with body mass index 13.1. 14.FULL CODE. RECOMMENDATION: This 67-year-old woman who presented with multiple complex medical issues, we will monitor the patient closely. Unstable angina protocol. Otherwise, follow closely with Cardiology. See the stress test or cardiac catheterization. Guarded prognosis because of multiple complex medical issues. Further recommendations to follow. A copy of dictation being forwarded to Dr. Moore who is the primary physician. Resume the home medications. MMODL / IJN: [id number] / [id number]
[2018-11-27 20:02] LABS: Glucose,Whole Blood 210 mg/dL (75-99)
[2018-11-28 04:13] LABS: Appearance,Urine Cloudy (Clear); Bacteria,Urine Many /hpf; Bilirubin,Urine Negative (Negative); Blood,Urine Large (Negative); Color,Urine Yellow; Glucose,Urine (UA) Negative (Negative); Hyaline Casts,Urine 8 /lpf (0-2); Ketones,Urine Negative (Negative); Leukocyte Esterase,Urine Large (Negative); Mucus,Urine Rare /hpf; Nitrite,Urine Negative (Negative); PH, Urine 5.5 (5.0-8.0); Protein,Urine 1+ (Negative); RBC,Urine 39 /hpf (0-5); Specific Gravity,Urine 1.009 (1.001-1.035); Squamous Epithelial Cell,Urine 2 /hpf (0-4); Urobilinogen,Urine <2.0 mg/dL (<2.0); WBC,Urine 88 /hpf (0-5)
[2018-11-28] MEDS: LEVOTHYROXINE 75 MCG TAB PO SCH (06:14)
[2018-11-28 06:44] LABS: Glucose,Whole Blood 78 mg/dL (75-99)
[2018-11-28 07:28] LABS: Basophils % (A) 0 %; Eosinophils # (A) 0.6 k/uL (0-0.7); Eosinophils % (A) 9 %; HCT 34.7 % (34.0-46.0); HGB 11.4 gm/dL (11.4-16.0); Lymphocytes # (A) 1.8 k/uL (1.0-4.8); Lymphocytes % (A) 24 %; MCHC 32.8 g/dL (31.0-37.0); MCV 91.5 fL (80.0-100.0); Mean Platelet Volume 7.5; Monocytes # (A) 0.3 k/uL (0-1.0); Monocytes % (A) 5 %; Neutrophils # (A) 4.4 k/uL (1.3-7.7); Neutrophils % (A) 61 %; Platelet Count 246 k/uL (150-450); RDW 14.5 % (11.5-15.5); WBC 7.3 k/uL (3.8-10.6)
[2018-11-28 07:41] LABS: Calcium 9.5 mg/dL (8.4-10.2)
[2018-11-28] MEDS: INSULIN ASPART (NovoLOG) 100 UNIT/ML VIAL SQ SCH ×3 (07:43→17:37)
[2018-11-28] MEDS: POTASSIUM CHLORIDE ER 20 MEQ TAB.ER PO SCH (08:53)
[2018-11-28] MEDS: CARVEDILOL 6.25 MG TAB PO SCH ×2 (08:53→17:41)
[2018-11-28] MEDS: ALLOPURINOL 300 MG TAB PO SCH (08:53)
[2018-11-28] MEDS: PANTOPRAZOLE 40 MG TABLET PO SCH (08:53)
[2018-11-28] MEDS: ATORVASTATIN 80 MG TAB PO SCH (08:53)
[2018-11-28] MEDS: MULTIVITAMINS, THERA 1 EACH TAB PO SCH (08:53)
[2018-11-28] MEDS: LOSARTAN 50 MG TAB PO SCH (08:53)
[2018-11-28] MEDS: SPIRONOLACTONE 25 MG TAB PO SCH (08:53)
[2018-11-28] MEDS: CITALOPRAM HYDROBROMIDE 20 MG TAB PO SCH (08:53)
[2018-11-28] MEDS: MAGNESIUM OXIDE 400 MG TAB PO SCH (08:53)
[2018-11-28] MEDS: ASPIRIN 81 MG PO SCH (08:53)
[2018-11-28] MEDS: INSULIN DETEMIR (LEVEMIR) 100 UNIT/ML SYR SQ SCH ×2 (08:53→21:57)
[2018-11-28] MEDS: amLODIPine 10 MG TAB PO SCH (08:53)
--- NOTE | 2018-11-28 10:23 | P.PN ---
Subjective This is a pleasant 67-year-old female past medical history significant for coronary artery disease status post stent placement, diabetes mellitus, h ypertension, dyslipidemia and chronic kidney disease. She follows in the office with Dr. Nagy. Patient was seen and examined sitting up eating breakfast in no acute distress. She denies any further symptoms of chest discomfort. Echocardiogram obtained revealed impaired LV systolic function with ejection fraction 35-40%, moderate to severe mitral regurgitation, moderate tricuspid regurgitation. Blood pressure 144/88 heart rate 65 afebrile maintaining oxygen saturation. Laboratory data reviewed, CBC unremarkable, sodium 143, potassium 4.0, creatinine 1.87. GENERAL: This is a 67-year-old female in no apparent distress at the time of my examination. HEENT: Head is atraumatic, normocephalic. Pupils are equal, round. Sclerae anicteric. Conjunctivae are clear. Mucous membranes of the mouth are moist. Neck is supple. There is no jugular venous distention. No carotid bruit is heard. LUNGS: Clear to auscultation no wheezes, rales or rhonchi. No chest wall tenderness is noted on palpation or with deep breathing. HEART: Regular rate and rhythm with systolic ejection murmur at the left sternal border, no rubs or gallops. S1 and S2 heard. EXTREMITIES: No evidence of peripheral edema and no calf tenderness noted. ASSESSMENT Precordial chest pain suggestive of angina. New-onset cardiomyopathy History of coronary artery disease status post stent placement to the LAD in the setting of an acute myocardial infarction initially. Dyslipidemia Hypertension Diabetes mellitus Chronic kidney disease, GFR 29 Pulmonary hypertension Valvular heart disease PLAN Patient has had no further symptoms of chest discomfort. Repeat renal function in the morning. Further evaluation depending on renal function. Will require coronary angiography however decision will be made whether this can be done as an outpatient secondary to renal function. Nothing by mouth after midnight. Further recommendations to follow. Nurse Practitioner note has been reviewed, I agree with a documented findings and plan of care. Patient was seen and examined. Objective - Vital Signs Vital signs: Vital Signs Temp 97.4 F L 11/28/18 04:49 Pulse 65 11/28/18 08:00 Resp 16 11/28/18 08:00 BP 144/88 11/28/18 08:00 Pulse Ox 97 11/28/18 08:00 Intake & Output 11/27/18 11/28/1819 18:59 06:59 18:59 Intake Total 0 Balance 0 Intake: Oral 0 Other: Voiding Method Toilet Toilet - Labs CBC & Chem 7: 11/28/18 06:29 11/28/18 06:29 Labs: Abnormal Lab Results - Last 24 Hours (Table) 11/27/18 11/27/18 11/27/18 Range/Units 11:43 16:30 20:01 Chloride (98-107) mmol/L BUN (7-17) mg/dL Creatinine (0.52-1.04) mg/dL POC Glucose (mg/dL) 313 H 164 H 210 H (75-99) mg/dL Urine Appearance (Clear) Urine Protein (Negative) Urine Blood (Negative) Ur Leukocyte Esterase (Negative) Urine RBC (0-5) /hpf Urine WBC (0-5) /hpf Urine WBC Clumps (None) /hpf Urine Bacteria (None) /hpf Hyaline Casts (0-2) /lpf Urine Mucus (None) /hpf 11/28/18 11/28/18 Range/Units 02:54 06:29 Chloride 109 H (98-107) mmol/L BUN 53 H (7-17) mg/dL Creatinine 1.87 H (0.52-1.04) mg/dL POC Glucose (mg/dL) (75-99) mg/dL Urine Appearance Cloudy H (Clear) Urine Protein 1+ H (Negative) Urine Blood Large H (Negative) Ur Leukocyte Esterase Large H (Negative) Urine RBC 39 H (0-5) /hpf Urine WBC 88 H (0-5) /hpf Urine WBC Clumps Few H (None) /hpf Urine Bacteria Many H (None) /hpf Hyaline Casts 8 H (0-2) /lpf Urine Mucus Rare H (None) /hpf
[2018-11-28 11:30] LABS: Glucose,Whole Blood 138 mg/dL (75-99)
[2018-11-28 16:41] LABS: Glucose,Whole Blood 109 mg/dL (75-99)
--- NOTE | 2018-11-28 19:54 | PN ---
PROGRESS NOTE DATE OF SERVICE: 11/28/2018 This 67-year-old woman is admitted chest pain is being closely monitored. Cardiology is following the patient closely with tentative plans for cardiac cath. Creatinine is elevated up to 1.87. UA showed possible UTI also. The patient being closely monitored. The most recent EKG showed left bundle branch block. PAST MEDICAL HISTORY: Reviewed. REVIEW OF SYSTEM: Cardiovascular system: As mentioned earlier. RESPIRATORY: As mentioned earlier. GI no nausea or vomiting. no dysuria. Nervous systems: No numbness or weakness. CURRENT MEDICATIONS: Reviewed and include: 1. Tylenol 650 q.6h p.r.n. 2. Ventolin 2.5 q.6h p.r.n. 3. Zyloprim 300 mg p.o. t.i.d. 4. Norvasc 10 mg daily. 5. Aspirin 81 mg daily. 6. Lipitor 80 mg daily. 7. Coreg 6.25 mg b.i.d. 8. Celexa 20 mg b.i.d. 9. NovoLog a.c. t.i.d. 10.Levemir 30 units subcu b.i.d. 11.Synthroid 75 mcg p.o. daily. 12.Cozaar 100 mg p.o. daily. 13.Magnesium oxide 400 mg p.o. daily. 14.Antivert 12.5 mg b.i.d. 15.Multivitamins one p.o. daily. 16.Narcan 0.2 q.2h p.r.n. 17.Nitrostat 0.4 mg p.r.n. 18.Protonix 40 mg daily. 19.K-Dur 20 mEq p.o. daily. 20.Aldactone 25 mg p.o. daily. PHYSICAL EXAM: Patient is alert, oriented x3. Pulse is 71, blood pressure 147/72, respiration 18, temperature 98.4, pulse ox 97% on room air. HEENT: Conjunctivae normal. NECK: No jugular venous distention. CARDIOVASCULAR: S1, S2 muffled. RESPIRATORY: Breath sounds diminished in the bases. A few scattered rhonchi and crackles. ABDOMEN: Soft, nontender. NERVOUS SYSTEM: No focal deficits. LABS: WBC normal. Creatinine is 1.87. UA noted. Glucose 138. ASSESSMENT: 1. Chest pain, possible unstable angina. 2. Increased creatinine with possible chronic kidney disease stage III. 3. Diabetes mellitus type 2. 4. Possible acute urinary tract infection present on admission. 5. Anemia, normocytic anemia of chronic disease. 6. History of chest pain. 7. Hypertension. 8. Hyperlipidemia. 9. History of myocardial infarction. 10.History of renal disease. 11.History of right cataract. 12.History of coronary artery disease/ stent placement proximal LAD 2014. 13.Depression. 14.Obesity. Body mass index of 39.1. RECOMMENDATIONS AND DISCUSSION: In this 67-year-old woman who presented with multiple medical issues, we will monitor the patient closely. Continue the current medications, management and symptomatic treatment. Optimize renal functions. I would recommend empiric antibiotics. I would also get a nephrology evaluation. Guarded prognosis because of multiple complex medical issues. Further recommendations to follow. See orders for details. Avoid nephrotoxic medications at this time. MMODL / IJN: [id number] /
[2018-11-28 20:31] LABS: Glucose,Whole Blood 184 mg/dL (75-99)
[2018-11-29] MEDS: LEVOTHYROXINE 75 MCG TAB PO SCH ×2 (06:09→06:18)
[2018-11-29 06:53] LABS: Glucose,Whole Blood 111 mg/dL (75-99)
[2018-11-29] MEDS ORDERED: LOSARTAN 50 MG TAB PO SCH (09:00)
[2018-11-29 09:14] LABS: Basophils % (A) 0 %; Eosinophils # (A) 0.8 k/uL (0-0.7); Eosinophils % (A) 9 %; HCT 32.7 % (34.0-46.0); HGB 10.8 gm/dL (11.4-16.0); Lymphocytes # (A) 1.9 k/uL (1.0-4.8); Lymphocytes % (A) 23 %; MCH 30.1 pg (25.0-35.0); MCHC 33.1 g/dL (31.0-37.0); MCV 90.8 fL (80.0-100.0); Mean Platelet Volume 7.4; Monocytes # (A) 0.4 k/uL (0-1.0); Monocytes % (A) 5 %; Neutrophils % (A) 61 %; Platelet Count 236 k/uL (150-450); RBC 3.61 m/uL (3.80-5.40); RDW 14.8 % (11.5-15.5); WBC 8.3 k/uL (3.8-10.6)
[2018-11-29 09:35] LABS: Calcium 9.2 mg/dL (8.4-10.2); Potassium 4.2 mmol/L (3.5-5.1)
[2018-11-29] MEDS: INSULIN ASPART (NovoLOG) 100 UNIT/ML VIAL SQ SCH (09:45)
[2018-11-29] MEDS: CITALOPRAM HYDROBROMIDE 20 MG TAB PO SCH (09:55)
[2018-11-29] MEDS: ASPIRIN 81 MG PO SCH (09:55)
[2018-11-29] MEDS: amLODIPine 10 MG TAB PO SCH (09:55)
[2018-11-29] MEDS: POTASSIUM CHLORIDE ER 20 MEQ TAB.ER PO SCH (09:56)
[2018-11-29] MEDS: ATORVASTATIN 80 MG TAB PO SCH (09:56)
[2018-11-29] MEDS: CARVEDILOL 6.25 MG TAB PO SCH (09:56)
[2018-11-29] MEDS: INSULIN DETEMIR (LEVEMIR) 100 UNIT/ML SYR SQ SCH (09:56)
[2018-11-29] MEDS: PANTOPRAZOLE 40 MG TABLET PO SCH (09:56)
[2018-11-29] MEDS: MAGNESIUM OXIDE 400 MG TAB PO SCH (09:56)
[2018-11-29] MEDS: MULTIVITAMINS, THERA 1 EACH TAB PO SCH (09:56)
[2018-11-29] MEDS: ALLOPURINOL 300 MG TAB PO SCH (11:09)
[2018-11-29] MEDS ORDERED: SODIUM CHLORIDE 0.9% 1,000 ML IV SCH (11:15)
[2018-11-29 11:45] LABS: Glucose,Whole Blood 130 mg/dL (75-99)
[2018-11-29 12:11] VITALS: BP 151/80; PULSE 74; RESP 18; TEMP 97.9
--- NOTE | 2018-11-29 12:27 | P.PN ---
Subjective This is a pleasant 67-year-old female past medical history significant for coronary artery disease status post stent placement, diabetes mellitus, h ypertension, dyslipidemia and chronic kidney disease. She follows in the office with Dr. Nagy. Patient is seen and examined laying flat in bed with family at the bedside. She has had no further symptoms of chest discomfort since admission. She has been up and ambulating without difficulty or symptoms. Laboratory data reviewed, hgb 10.8, plt 236, sodium 143, potassium 4.2, creatinine 1.53. Blood pressure 151/80 heart rate 74 afebrile and maintaining oxygen saturation on room air. Currently maintained on amlodipine 10 mg daily, aspirin 81 mg daily, atorvastatin 80 mg daily, coreg 6.25 mg daily and losartan 50 mg daily. GENERAL: This is a 67-year-old female in no apparent distress at the time of my examination. HEENT: Head is atraumatic, normocephalic. Pupils are equal, round. Sclerae anicteric. Conjunctivae are clear. Mucous membranes of the mouth are moist. Neck is supple. There is no jugular venous distention. No carotid bruit is heard. LUNGS: Clear to auscultation no wheezes, rales or rhonchi. No chest wall tenderness is noted on palpation or with deep breathing. HEART: Regular rate and rhythm with systolic ejection murmur at the left sternal border, no rubs or gallops. S1 and S2 heard. EXTREMITIES: No evidence of peripheral edema and no calf tenderness noted. ASSESSMENT Precordial chest pain suggestive of angina. New-onset cardiomyopathy History of coronary artery disease status post stent placement to the LAD in the setting of an acute myocardial infarction initially. Dyslipidemia Hypertension Diabetes mellitus Chronic kidney disease, GFR 29 Pulmonary hypertension Valvular heart disease PLAN Discussed in detail with her primary locksmith Dr. Nagy and due to her renal function and no further symptoms he will bring her back on for outpati ent heart catheterization and [place]. This was discussed in great detail with the patient and her . Stable for discharge on current medical regimen. Nurse Practitioner note has been reviewed, I agree with a documented findings and plan of care. Patient was seen and examined. Objective - Vital Signs Vital signs: Vital Signs Temp 97.9 F 11/29/18 12:00 Pulse 74 11/29/18 12:00 Resp 18 08/26/19 12:00 BP 151/80 11/29/18 12:00 Pulse Ox 95 11/29/18 12:00 Intake & Output 11/28/18 11/29/18 11/29/18 18:59 06:59 18:59 Intake Total 200 Balance 200 Intake: Other 200 Other: Voiding Method Toilet Toilet # Voids 2 1 - Labs CBC & Chem 7: 11/29/18 08:50 11/29/18 08:50 Labs: Abnormal Lab Results - Last 24 Hours (Table) 11/28/18 11/28/18 11/29/18 Range/Units 16:39 20:23 06:49 RBC (3.80-5.40) m/uL Hgb (11.4-16.0) gm/dL Hct (34.0-46.0) % Eosinophils # (0-0.7) k/uL Chloride (98-107) mmol/L BUN (7-17) mg/dL Creatinine (0.52-1.04) mg/dL Glucose (74-99) mg/dL POC Glucose (mg/dL) 109 H 184 H 111 H (75-99) mg/dL 11/29/18 11/29/18 11/29/18 Range/Units 08:50 08:50 11:43 RBC 3.61 L (3.80-5.40) m/uL Hgb 10.8 L (11.4-16.0) gm/dL Hct 32.7 L (34.0-46.0) % Eosinophils # 0.8 H (0-0.7) k/uL Chloride 112 H (98-107) mmol/L BUN 49 H (7-17) mg/dL Creatinine 1.53 H (0.52-1.04) mg/dL Glucose 107 H (74-99) mg/dL POC Glucose (mg/dL) 130 H (75-99) mg/dL Microbiology - Last 24 Hours (Table) 11/28/18 19:30 Urine Culture - Preliminary Urine,Voided
--- NOTE | 2018-11-29 13:22 | CONS ---
CONSULTATION REASON FOR CONSULT: Renal failure. HISTORY OF PRESENT ILLNESS: Patient is a 67-year-old female who was admitted to the hospital with complaints of chest pain which started while she was sleeping last night. Currently, patient is chest pain free. She does have an underlying history of chronic kidney disease NKF stage 3, secondary to nephrosclerosis and diabetic kidney disease. Baseline creatinine about 1.2 to 1.5 mg/dL. There are plans for possible cardiac catheterization. Patient denies any fever, chills, nausea, vomiting, abdominal pain or diarrhea. PAST MEDICAL HISTORY: Significant for chronic kidney disease stage 3, diabetes, hypertension, hyperlipidemia, hypothyroidism, gastroesophageal reflux disease. PAST SURGICAL HISTORY: Cardiac catheterization in April of 2017, coronary stent placement, left breast biopsy which was negative, cataract surgery, previous cardiac cath in 2016 and 2014. SOCIAL HISTORY: Negative for smoking, drug abuse or alcohol abuse. MEDICATIONS: Medications include multivitamins, Lipitor, Imdur, Synthroid, Antivert, Protonix, Zyloprim, Coreg, losartan, Nitrostat, Demadex, Norvasc, potassium, Celexa, Aldactone, aspirin. ALLERGIES: None. REVIEW OF SYSTEMS: As per HPI, other systems negative. PHYSICAL EXAMINATION: On examination, patient is comfortable, awake, not in any acute distress. Alert and oriented x3. Blood pressure was 116/70, heart rate of 62 per minute. Patient is afebrile. EXAMINATION OF THE HEART: S1, S2. EXAMINATION OF THE LUNGS: Bilateral breath sounds are heard. Abdomen is soft, nontender. Examination of lower extremities shows no significant edema. RUBBER CUTTER exam is grossly intact. LABS: Labs show sodium of 143, potassium 4.2, chloride 112, BUN 49, serum creatinine 1.53, hemoglobin 10.8 g/dL. ASSESSMENT: 1. Chronic kidney disease nephrosclerosis and diabetic kidney disease. Baseline creatinine 1.2 to 1.5 mg/dL. 2. Acute kidney injury, possibly prerenal, currently improved. Serum creatinine is down from around 1.8 to 1.5 now. I will decrease the dose of Cozaar to 50 mg daily as blood pressure is slightly on the lower side. We can add IV fluids plan for cardiac catheterization. UA does show pyuria, we need to rule out urinary tract infection. 3. Pyuria, rule out urinary tract infection. Check urine cultures. Currently asymptomatic. 4. Hypertension. Controlled blood pressure slightly on the lower side. Decrease Cozaar. PLAN: Check urine culture. Decrease Cozaar. Start IV fluids. Okay to proceed with cardiac cath. Watch serum potassium levels. Thank you for this consultation. We will continue to follow the patient with you during her hospitalization. MMODL / IJN: [id number] /
--- NOTE | 2018-11-30 00:38 | DS ---
DISCHARGE SUMMARY DATE OF SERVICE: 11/29/2018. FINAL DIAGNOSES: 1. Chest pain, myocardial infarction ruled out, possibly musculoskeletal. 2. Increased creatinine with possible chronic kidney stage III. 3. Diabetes mellitus type 2. 4. Acute urinary tract infection present on admission. 5. Anemia, normocytic anemia of chronic disease. 6. History of chest pain. 7. Hypertension. 8. Hyperlipidemia. 9. History of myocardial infarction. 10.History of renal disease. 11.History of right cataract. 12.History of coronary artery disease/ stent placement proximal left anterior descending coronary artery in 2014. 13.History of depression. 14.Obesity, body mass index of 39.1. DISCHARGE DISPOSITION: The patient being discharged in a stable condition with guarded prognosis. Cardiology cleared the patient for discharge. HISTORY OF PRESENT ILLNESS: This 67-year-old woman with past medical history of multiple medical problems, was admitted with chest pain, multiple medical medical problems as mentioned earlier. Treated symptomatically. Myocardial infarction ruled out. Cardiology saw the patient. Recommend outpatient followup. The patient was also seen by Nephrology. Creatinine is 1.53. Outpatient evaluation has been recommended. On exam, vitals are stable. Cardiovascular S1, S2. Abdomen soft. Nervous system: No focal deficits. DISCHARGE ADVICE AND MEDICATIONS: 1. Diet is cardiac diet. 2. Activity limited until followup. 3. Follow up with Dr. Eduin oMore in 1 to 2 days. 4. Follow up with Cardiology and Nephrology as recommended. MEDICATIONS: 1. Antivert 12.5 mg b.i.d. p.r.n. 2. Coreg 6.25 mg p.o. b.i.d. 3. Demadex 20 mg p.o. b.i.d. 4. Imdur 30 mg p.o. daily. 5. K-Dur 20 mEq p.o. daily. 6. Levemir 30 units subcu b.i.d. 7. Lipitor 80 mg p.o. daily. 8. Losartan 100 mg p.o. daily. 9. Multivitamins 1 p.o. daily. 10.Nitrostat 0.4 mg sublingual p.r.n. 11.Norvasc 10 mg p.o. daily. 12.NovoLog a.c. t.i.d. 13.Magnesium oxide 500 mg p.o. daily. 14.Protonix 40 mg p.o. daily. 15.Synthroid 75 mcg p.o. daily. 16.Ventolin HFA 1-2 puffs q.6h p.r.n. 17.Zyloprim 300 mg p.o. daily. 18.Aspirin 81 mg p.o. daily. 19.Ceftin 500 mg p.o. b.i.d. for 3 days. 20.Celexa 20 mg p.o. daily. 21.Tylenol 650 q.6h p.r.n. Once again, the patient being discharged in stable condition with guarded prognosis. MMODL / IJN: [id number] /
== END 2018-11-29 12:30 | disposition home or self-care (01) | DRG 313 ==
LOC: EC 15:48 → 1SOBS 18:43 → OBSVTOIN 11-28 12:00
PROVIDERS: ADMIT Hospitalist; ATTEND Hospitalist
DX: R07.89 Other chest pain (principal); N39.0 Urinary tract infection, site not specified; N17.9 Acute kidney failure, unspecified; I42.9 Cardiomyopathy, unspecified; E11.22 Type 2 diabetes mellitus with diabetic chronic kidney disease; I25.10 Atherosclerotic heart disease of native coronary artery without angina pectoris; I27.20 Pulmonary hypertension, unspecified; E11.36 Type 2 diabetes mellitus with diabetic cataract; N18.3 Chronic kidney disease, stage 3 (moderate); I08.3 Combined rheumatic disorders of mitral, aortic and tricuspid valves; I12.9 Hypertensive chronic kidney disease with stage 1 through stage 4 chronic kidney disease, or unspecified chronic kidney disease; D63.8 Anemia in other chronic diseases classified elsewhere; E03.9 Hypothyroidism, unspecified; K21.9 Gastro-esophageal reflux disease without esophagitis; E78.5 Hyperlipidemia, unspecified; G47.30 Sleep apnea, unspecified; I44.7 Left bundle-branch block, unspecified; F32.9 Major depressive disorder, single episode, unspecified; I25.2 Old myocardial infarction; E66.9 Obesity, unspecified; Z68.39 Body mass index [BMI] 39.0-39.9, adult; Z79.82 Long term (current) use of aspirin; Z79.4 Long term (current) use of insulin; Z79.890 Hormone replacement therapy; Z79.899 Other long term (current) drug therapy; Z95.5 Presence of coronary angioplasty implant and graft; Z98.42 Cataract extraction status, left eye; Z98.890 Other specified postprocedural states; Z83.3 Family history of diabetes mellitus; Z82.49 Family history of ischemic heart disease and other diseases of the circulatory system
CPT/HCPCS: 36415; 71046; 80048; 80053; 81001; 83690; 83735; 83880; 84484; 85025; 85610; 85730; 87077; 87086; 87186; 93005; 93306; 99285

== ENCOUNTER 2018-12-02 06:48 | Inpatient (IN) | payer MEDICARE ==
[2018-12-02] MEDS ORDERED: ASPIRIN 81 MG PO ONE (07:35)
[2018-12-02 07:36] LABS: Glucose,Whole Blood 87 mg/dL (75-99)
[2018-12-02] MEDS ORDERED: fentaNYL (PF) 50 MCG/ML 2 ML AMP ONE (10:50)
[2018-12-02] MEDS ORDERED: IV FLUID CONTINUATION 1,000 ML IV ONE ×2 (11:02→11:11)
[2018-12-02] MEDS ORDERED: BENZOCAINE SPRAY 1 CAN MUCOUS MEM ONE (11:11)
[2018-12-02] MEDS ORDERED: MIDAZOLAM (PF) 2 MG/2 ML VIAL IV ONE (11:21)
[2018-12-02] MEDS ORDERED: fentaNYL (PF) 50 MCG/ML 2 ML AMP IV ONE (11:21)
[2018-12-02] MEDS ORDERED: LIDOCAINE 1% INJ 10MG/ML (20 ML MDV) ONE (12:22)
[2018-12-02] MEDS ORDERED: LIDOCAINE 1% INJ 10MG/ML (20 ML MDV) SQ ONE (12:26)
[2018-12-02] MEDS ORDERED: IOPAMIDOL-370 100ML BTL INJ ONE (12:42)
--- NOTE | 2018-12-02 12:47 | ECHOT ---
TRANSESOPHAGEAL ECHOCARDIOGRAM INDICATION: Mitral regurgitation. PROCEDURE NOTE: After obtaining informed consent, transesophageal echocardiogram was performed in left lateral position using an Omni plane probe. Local and IV sedation were obtained with 2 mg of Versed and 25 mcg of fentanyl. The patient tolerated the procedure well without any obvious immediate complications. FINDINGS: 1. Mitral valve appears anatomically normal. There is severe mitral regurgitation noted. The mitral anulus is dilated and there is poor coaptation of the mitral valve leaflets. 2. Left atrium appears severely enlarged. Right atrium and right ventricle seen within normal limits. 3. Interatrial septum there is no evidence of [id number] shunt by color-flow Doppler or tfwgm-[id number] shunt by agitated saline contrast study. 4. Aortic valve is a 3-leaflet valve. There is no evidence of aortic stenosis or regurgitation. 5. Tricuspid valve shows moderate to severe tricuspid regurgitation. 6. Left ventricle appears mildly enlarged with diffuse global hypokinesis with moderate to severe LV dysfunction with an ejection fraction of 35% to 40%. 7. Aorta shows [id number] atherosclerotic changes. CONCLUSIONS: 1. Severe mitral regurgitation secondary to dilated mitral anulus. 2. Cardiomyopathy with moderate to severe left ventricular dysfunction. 3. Moderate to severe tricuspid regurgitation. MMODL / IJN: [id number] /
[2018-12-02] MEDS ORDERED: RX INFO: IV CONTRAST WAS GIVEN 1 EACH MISC MISCELLANE PRN (12:48)
[2018-12-02 13:34] LABS: Glucose,Whole Blood 79 mg/dL (75-99)
--- NOTE | 2018-12-02 15:22 | P.GSCN ---
History of Present Illness Consult date: 12/02/18 Reason for Consult: Severe mitral valve regurgitation, coronary artery disease, recommendations for surgery Requesting physician: Fausto Nagy History of present illness: This is a 67-year-old female patient who follows on an outpatient basis with Dr. Moore for primary care and Dr. Nagy for cardiology. She has a previous medical history of coronary artery disease with heart catheterization, most recent stent placement to the proximal LAD in 2017, hypertension, hyperlipidemia, insulin dependent diabetes mellitus, morbid obesity, stage III chronic kidney disease with baseline creatinine 1.2-1.5, pulmonary hypertension, and family history of hypertension and diabetes. She presented to [facility] 11/26/2018 with complaints of severe, constant, sharp chest pain with radiation to her left arm, relieved with sublingual nitro. She was admitted and worked up, myocardial infarction was ruled out, and she was discharged to home 3 days later to follow-up with cardiology. A transthoracic echocardiogram was completed during her admission which demonstrated moderately impaired left ventricular systolic function with ejection fraction 35-40%, mild aortic regurgitation, mild mitral annular calcification with moderate to severe mitral regurgitation, and moderate tricuspid regurgitation with severe pulmonary hypertension. Upon follow-up with Dr. Nagy the patient was recommended to undergo outpatient heart catheterization and transesophageal echocardiogram, both of which were completed today. Her heart catheterization did demonstrate proximal LAD stenosis of 70%. The transesophageal echocardiogram confirmed left ventricular systolic dysfunction with ejection fraction 35-40%, left atrial enlargement, severe mitral regurgitation with a dilated annulus and poor coaptation of the mitral leaflets, and moderate to severe tricuspid regurgitation. Due to these findings Dr. Sawant from cardiothoracic surgery was consulted for surgical recommendations. Review of Systems Review of systems was completed and was negative except as noted - Cardiovascular Reports as per HPI, Reports chest pain Past Medical History Past Medical History: Coronary Artery Disease (CAD), Chest Pain / Angina, Heart Failure, Diabetes Mellitus, Eye Disorder, Hyperlipidemia, Hypertension, Myocardial Infarction ([place]), Renal Disease, Sleep Apnea/CPAP/BIPAP, Thyroid Disorder Additional Past Medical History / Comment(s): Right cataract. CAD with Stent to Proximal LAD 03/31/2015. Not using CPAP, Recent admit w/ CP, UTI. Cardiac stent to proximal LAD 2016 Last Myocardial Infarction Date:: 03/31/2015 History of Any Multi-Drug Resistant Organisms: None Reported Past Surgical History: Breast Surgery, Heart Catheterization, Heart Catheterization With Stent Additional Past Surgical History / Comment(s): Left breast bx-neg, buttocks sx- pt stated:" they told me I had gangrene and had sx to remove", lt cataract, Heart Cath 11/18/16. Past Anesthesia/Blood Transfusion Reactions: No Reported Reaction Date of Last Stent Placement:: 2014 Past Psychological History: No Psychological Hx Reported Smoking Status: Never smoker Past Alcohol Use History: None Reported Past Drug Use History: None Reported - Past Family History Father Family Medical History: Unable to Obtain Additional Family Medical History / Comment(s): Father from motor vehicle accident Mother Family Medical History: Diabetes Mellitus, Hypertension Medications and Allergies Home Medications Medication Instructions Recorded Confirmed Type Aspirin 81 mg PO DAILY #1 chewable 06/05/15 12/02/18 Rx Multivitamins, Thera [Multivitamin 1 tab PO DAILY 07/02/15 11/30/18 History (formulary)] Atorvastatin [Lipitor] 80 mg PO DAILY 08/01/15 11/30/18 History Isosorbide Mononitrate ER [Imdur] 30 mg PO DAILY 08/01/15 11/30/18 History Levothyroxine Sodium [Synthroid] 75 mcg PO DAILY 05/01/16 11/30/18 History Citalopram Hydrobromide [CeleXA] 20 mg PO DAILY tab 08/14/16 11/30/18 Rx Meclizine [Antivert] 12.5 mg PO BID PRN 11/18/16 11/30/18 History Pantoprazole [Protonix] 40 mg PO DAILY 07/25/17 11/30/18 History Albuterol Inhaler [Ventolin Hfa 2 puff INHALATION RT-Q6H PRN 11/26/18 11/30/18 History Inhaler] Allopurinol [Zyloprim] 300 mg PO DAILY 11/26/18 11/30/18 History Carvedilol [Coreg] 6.25 mg PO BID 11/26/18 11/30/18 History INSULIN ASPART (NovoLOG) [NovoLOG See Protocol SQ AC-TID 11/26/18 11/30/18 History (formulary)] Insulin Detemir (Levemir) [Levemir] 30 unit SQ BID 11/26/18 11/30/18 History Losartan Potassium 100 mg PO DAILY 11/26/18 11/30/18 History Magnesium Oxide [Razo] 500 mg PO DAILY 11/26/18 11/30/18 History Nitroglycerin Sl Tabs [Nitrostat] 0.4 mg SUBLINGUAL Q5M PRN 11/26/18 11/30/18 History Potassium Chloride ER [K-Dur 20] 20 meq PO DAILY 11/26/18 11/30/18 History Torsemide [Demadex] 20 mg PO BID 11/26/18 11/30/18 History amLODIPine [Norvasc] 10 mg PO DAILY 11/26/18 11/30/18 History Acetaminophen Tab [Tylenol] 650 mg PO Q6HR PRN tab 11/29/18 11/30/18 Rx Cefuroxime Axetil [Ceftin] 500 mg PO BID 3 Days #6 tab 11/29/18 11/30/18 Rx Allergies Allergy/AdvReac Type Severity Reaction Status Date / Time No Known Allergies Allergy Verified 12/02/18 07:19 Surgical - Exam Vital Signs Temp Pulse Resp BP Pulse Ox 98.1 F 63 20 154/70 96 12/02/18 07:39 12/02/18 07:39 12/02/18 07:39 12/02/18 07:39 12/02/18 07:39 - General well developed, well nourished, no distress, no pain, obese - Eyes PERRL, normal ocular movement - ENT no hearing loss, poor shelter - Neck no masses, no bruits, trachea midline - Respiratory lungs sounds clear bilaterally. Respirations even, nonlabored. Currently on room air with oxygen saturation 98%. No chest wall deformities. No clubbing or cyanosis - Cardiovascular S1, S2 present. Regular rate and rhythm, sinus rhythm on telemetry. Palpable peripheral pulses bilaterally. No edema present. No calf pain or tenderness noted. No varicosities noted. Right femoral artery heart catheterization site soft, without redness or drainage - Abdomen Abdomen: soft, non tender, bowel sounds - Genitourinary Deferred - Rectum Deferred - Integumentary no rash, no growths - Neurologic normal coordination, normal sensation - Musculoskeletal normal posture - Psychiatric oriented to time, oriented to person, oriented to place, speech is normal, memory intact Results - Imaging Additional studies: Cardiac catheterization results reviewed, transesophageal echocardiogram results reviewed Assessment and Plan Assessment: 1. Coronary artery disease with previous history of stenting to the proximal LAD, most recent stent in 2017 2. Cardiomyopathy with EF 35-40% 3. Severe mitral regurgitation with dilated mitral annulus and poor coaptation of the mitral leaflets 4. Moderate to severe tricuspid regurgitation 5. Hypertension 6. Hyperlipidemia 7. Insulin-dependent diabetes mellitus 8. Morbid obesity 9. Stage III chronic kidney disease, baseline creatinine 1.2-1.5 10. Pulmonary hypertension 11. Family history of hypertension and diabetes Plan: The patient was seen and examined at the bedside in the extended stay unit. Chart/diagnostics were reviewed. The patient's family was present as well. The case will be discussed with Dr. Sawant. The usual perioperative course of open heart surgery was discussed in detail with the patient and family, risks and benefits were reviewed, all questions were answered. Preoperative testing was initiated. Patient will need dental clearance prior to scheduling surgery, this was discussed with the patient and her family, and they verbalized understanding. We would recommend continuing to maximize medical therapy with aspirin, statin, beta anaid, Aldactone, losartan. Once all preoperative testing has been completed we will calculate an STS risk score and discuss with the patient. Dr. Sawant will see the patient and further recommendations will be made. Thank you Dr. Nagy for this consult. We look forward to working with you in the care of your patient. Time with Patient: Greater than 30
[2018-12-02] MEDS: SODIUM CHLORIDE 0.9% 1,000 ML IV SCH (17:03)
[2018-12-02 17:07] LABS: Glucose,Whole Blood 144 mg/dL (75-99)
[2018-12-02 17:12] LABS: Basophils % (A) 0 %; Eosinophils # (A) 0.3 k/uL (0-0.7); Eosinophils % (A) 4 %; HCT 37.2 % (34.0-46.0); HGB 11.8 gm/dL (11.4-16.0); Lymphocytes # (A) 1.7 k/uL (1.0-4.8); Lymphocytes % (A) 18 %; MCH 29.8 pg (25.0-35.0); MCHC 31.8 g/dL (31.0-37.0); MCV 93.9 fL (80.0-100.0); Mean Platelet Volume 6.9; Monocytes # (A) 0.5 k/uL (0-1.0); Monocytes % (A) 5 %; Neutrophils # (A) 6.6 k/uL (1.3-7.7); Neutrophils % (A) 72 %; Platelet Count 256 k/uL (150-450); RBC 3.96 m/uL (3.80-5.40); WBC 9.2 k/uL (3.8-10.6)
[2018-12-02 17:20] LABS: INR 0.9 (<1.2); Partial Thromboplastin Time 27.1 sec (22.0-30.0)
[2018-12-02 17:24] LABS: Albumin 4.1 g/dL (3.5-5.0); Calcium 9.2 mg/dL (8.4-10.2); Magnesium 2.2 mg/dL (1.6-2.3); Potassium 4.5 mmol/L (3.5-5.1); Total Bilirubin 0.6 mg/dL (0.2-1.3); Total Protein 7.6 g/dL (6.3-8.2)
[2018-12-02] MEDS ORDERED: ALBUTEROL NEBULIZED 2.5 MG/3 ML INHALATION PRN (17:37)
[2018-12-02] MEDS ORDERED: MECLIZINE 12.5 MG TAB PO PRN (17:37)
[2018-12-02] MEDS ORDERED: ACETAMINOPHEN TAB 325 MG TAB PO PRN (17:37)
[2018-12-02] MEDS ORDERED: NITROGLYCERIN SL TABS 0.4 MG TAB SUBLINGUAL PRN (17:37)
[2018-12-02] MEDS: CARVEDILOL 6.25 MG TAB PO SCH (18:32)
--- NOTE | 2018-12-02 18:59 | CC ---
CARDIAC CATHETERIZATION REPORT INDICATION: Mitral regurgitation in a patient with known CAD. PROCEDURE NOTE: After obtaining informed consent, left heart catheterization, coronary angiogram are performed via the right femoral artery using standard Fany catheters. The patient tolerated the procedure well without any obvious immediate complications. A femoral angiogram was performed and addition was made for manual hemostasis. Patient has renal insufficiency. Her creatinine was 1.5. She will be hydrated after the catheterization. FINDINGS: HEMODYNAMICS: Left ventricular end-diastolic pressure is 12-14 mm. There is no significant gradient across the aortic valve. LEFT VENTRICULOGRAM: Left ventriculogram was not performed. ANGIOGRAPHIC DATA: Left main coronary artery: Left main coronary artery appears calcified but is free of stenosis. Divides into left anterior descending coronary artery and circumflex coronary artery. Circumflex coronary artery and its branches are free of significant stenosis. LAD: The previously stented segment appears patent. Proximal to the stent there is a 70% to 80% stenosis. Right coronary artery is a codominant vessel and is free of significant disease. CONCLUSIONS: 1. 70-80 percent stenosis involving proximal LAD. 2. Severe mitral regurgitation by transesophageal echo. PLAN: I am going to consult cardiothoracic surgeon to evaluate the patient for mitral valve repair and bypass surgery with REYES to LAD and venous graft to diagonal. If they think that she is not a candidate for mitral valve repair, then we are going to bring her back and attempt angioplasty of the LAD. I reviewed this information with the patient. She understands and is in agreement with the plans. MMODL / IJN: [id number] /
[2018-12-02 20:32] LABS: Glucose,Whole Blood 194 mg/dL (75-99)
[2018-12-02] MEDS: INSULIN DETEMIR (LEVEMIR) 100 UNIT/ML SYR SQ SCH (21:09)
[2018-12-02] MEDS: INSULIN ASPART (NovoLOG) 100 UNIT/ML VIAL SQ SCH (21:09)
[2018-12-02] MEDS: TORSEMIDE 20 MG TAB PO SCH (21:58)
[2018-12-03 02:04] LABS: Hemoglobin A1C 9.2 % (4.0-6.0)
[2018-12-03] MEDS ORDERED: ALBUMIN HUMAN 25% 50 ML in EMPTY BAG 1 BAG IVPB ONE (05:00)
[2018-12-03] MEDS: SODIUM CHLORIDE 0.9% 1,000 ML IV SCH ×2 (05:30→17:01)
[2018-12-03 06:24] LABS: Glucose,Whole Blood 105 mg/dL (75-99)
[2018-12-03] MEDS: CARVEDILOL 6.25 MG TAB PO SCH ×2 (06:57→17:01)
[2018-12-03] MEDS: PANTOPRAZOLE 40 MG TABLET PO SCH (06:57)
[2018-12-03] MEDS: INSULIN DETEMIR (LEVEMIR) 100 UNIT/ML SYR SQ SCH ×2 (06:58→21:00)
[2018-12-03] MEDS: LEVOTHYROXINE 75 MCG TAB PO SCH (07:11)
[2018-12-03 08:10] LABS: Calcium 9.7 mg/dL (8.4-10.2); Potassium 4.9 mmol/L (3.5-5.1)
[2018-12-03] MEDS ORDERED: ALLOPURINOL 300 MG TAB PO SCH (09:00)
--- NOTE | 2018-12-03 09:10 | US ---
EXAMINATION TYPE: US carotid duplex BILAT DATE OF EXAM: 12/02/2018 COMPARISON: US CLINICAL HISTORY: Pre-Op Cardiac Surgery. Pre-op cardiac surgery. HTN. Hyperlipidemia. EXAM MEASUREMENTS: RIGHT: Peak Systolic Velocity (PSV) cm/sec ----- Right CCA: 67.7 ----- Right ICA: 91.9 ----- Right ECA: 101.7 ICA/CCA ratio: 1.4 RIGHT: End Diastole cm/sec ----- Right CCA: 11.0 ----- Right ICA: 22.6 ----- Right ECA: 7.2 LEFT: Peak Systolic Velocity (PSV) cm/sec ----- Left CCA: 85.3 ----- Left ICA: 100.4 ----- Left ECA: 82.0 ICA/CCA ratio: 1.2 LEFT: End Diastole cm/sec ----- Left CCA: 12.8 ----- Left ICA: 21.5 ----- Left ECA: 0.0 VERTEBRALS (direction of flow): Right Vertebral: Antegrade Left Vertebral: Antegrade Rhythm: Normal Intimal thickening seen bilaterally. No elevated velocities obtained. Plaque seen bilateral carotid b ifurcations. Hypoechoic area with hyperechoic center seen lateral to left CCA measurin.0 x 0.7 x 0.2 cm. This likely represents a small lymph node. IMPRESSION: 1. Atherosclerotic plaque with no significant hemodynamic stenosis as visualized. Criteria for Assigning % of Stenosis / Diameter reduction (Estimation based on the indirect measurements of the internal carotid artery velocities (ICA PSV). 1. Normal (no stenosis)=ICA PSV < 125 cm/s: ratio < 2.0: ICA EDV<40 cm/s. 2. Less than 50% stenosis=ICA PSV < 125 cm/s: ratio < 2.0: ICA EDV<40 cm/s. 3. 50 to 69% stenosis=ICA PSV of 125 to 230 cm/s: ration 2.0 ? 4.0: ICA EDV 40-100 cm/s. 4. Greater than 70% stenosis to near occlusion= ICA PSV > 230 cm/s: ratio > 4.0: ICA EDV > 100 cm/s. 5. Near occlusion= ICA PSV velocities may be low or undetectable: variable ratio and ICA EDV. 6. Total occlusion=unable to detect flow.
[2018-12-03] MEDS: ATORVASTATIN 80 MG TAB PO SCH (09:15)
[2018-12-03] MEDS: ISOSORBIDE MONONITRATE ER 30 MG TAB.ER.24H PO SCH (09:15)
[2018-12-03] MEDS: ASPIRIN 81 MG PO SCH (09:15)
[2018-12-03] MEDS: MAGNESIUM OXIDE 400 MG TAB PO SCH (09:15)
[2018-12-03] MEDS: CITALOPRAM HYDROBROMIDE 20 MG TAB PO SCH (09:15)
[2018-12-03] MEDS: amLODIPine 10 MG TAB PO SCH (09:15)
[2018-12-03] MEDS: MULTIVITAMINS, THERA 1 EACH TAB PO SCH (09:15)
[2018-12-03] MEDS: LOSARTAN 50 MG TAB PO SCH (09:15)
[2018-12-03] MEDS: POTASSIUM CHLORIDE ER 20 MEQ TAB.ER PO SCH (09:15)
[2018-12-03] MEDS: TORSEMIDE 20 MG TAB PO SCH (09:16)
[2018-12-03] MEDS: INSULIN ASPART (NovoLOG) 100 UNIT/ML VIAL SQ SCH ×4 (09:16→21:00)
--- NOTE | 2018-12-03 09:52 | P.PN ---
Subjective Progress Note Date: 12/03/18 Principal diagnosis: Severe mitral valve regurgitation, coronary artery disease. Previous medical history of coronary artery disease with heart catheterization, most recent stent placement to the proximal LAD in 2017, hypertension, hyperlipidemia, insulin dependent diabetes mellitus, morbid obesity, stage III chronic kidney disease with baseline creatinine 1.2-1.5, pulmonary hypertension, and family history of hypertension and diabetes The patient is currently laying in bed in no acute distress. Denies chest pain or shortness of breath. She was eating breakfast this morning upon assessment without difficulty. Dr. Sawant did see her yesterday in the extended stay unit and again this morning on the floor. No new questions at this time. Objective - Vital Signs Vital signs: Vital Signs Temp 98.3 F 12/03/18 04:00 Pulse 60 12/03/18 04:00 Resp 18 12/03/18 04:00 BP 138/74 12/03/18 04:00 Pulse Ox 95 12/03/18 04:00 Intake & Output 12/02/18 12/03/18 12/03/18 18:59 06:59 18:59 Intake Total 1000 360 Output Total 575 300 Balance 425 -300 360 Weight 90.265 kg 89.8 kg Intake: IV 300 Sodium Chloride 0.9% 1, 100 000 ml @ 75 mls/hr IV . [id number] [facility] Rx#:[id number] Oral 700 360 Output: Urine 575 300 Other: Voiding Method Bedpan Toilet # Voids 2 - Constitutional General appearance: Present: cooperative, no acute distress, obese - Respiratory Details: Lungs sounds clear bilaterally. Respirations even, nonlabored. Currently on room air with oxygen saturation 96%. Able to achieve 1750 mL on her incentive spirometry. Strong cough. - Cardiovascular Details: S1, S2 present. Positive systolic murmur. Regular rate and rhythm, sinus rhythm on telemetry. Palpable peripheral pulses bilaterally. No edema present. No calf pain or tenderness noted. Right femoral artery heart catheterization site soft, without redness or drainage - Gastrointestinal Gastrointestinal Comment(s): Abdomen soft, nontender, nondistended. Active bowel sounds present 4 quadrants. Tolerating diet. Positive diarrhea this morning per patient. - Genitourinary Genitourinary Comment(s): Continues to void clear, yellow urine. - Integumentary Integumentary Comment(s): Skin is warm and dry with evidence of good perfusion. - Neurologic Neurologic: Present: CNII-XII intact - Musculoskeletal Musculoskeletal: Present: gait normal, strength equal bilaterally - Psychiatric Psychiatric: Present: A&O x's 3, appropriate affect, intact judgment & insight - Allied health notes Allied health notes reviewed: nursing - Labs CBC & Chem 7: 12/02/18 17:00 12/03/18 07:26 Labs: Abnormal Lab Results - Last 24 Hours (Table) 12/02/18 12/02/18 12/02/18 Range/Units 16:55 17:00 17:00 Chloride 109 H (98-107) mmol/L Carbon Dioxide 19 L (22-30) mmol/L BUN 64 H (7-17) mg/dL Creatinine 2.03 H (0.52-1.04) mg/dL Glucose 151 H (74-99) mg/dL POC Glucose (mg/dL) 144 H (75-99) mg/dL Hemoglobin A1c 9.2 H (4.0-6.0) % Triglycerides 225 H (<150) mg/dL Cholesterol 203 H (<200) mg/dL LDL Cholesterol, Calc 120 H (0-99) mg/dL HDL Cholesterol 38 L (40-60) mg/dL 12/02/18 12/03/18 12/03/18 Range/Units 20:31 06:23 07:26 Chloride 111 H (98-107) mmol/L Carbon Dioxide 18 L (22-30) mmol/L BUN 69 H (7-17) mg/dL Creatinine 2.35 H (0.52-1.04) mg/dL Glucose 123 H (74-99) mg/dL POC Glucose (mg/dL) 194 H 105 H (75-99) mg/dL Hemoglobin A1c (4.0-6.0) % Triglycerides (<150) mg/dL Cholesterol (<200) mg/dL LDL Cholesterol, Calc (0-99) mg/dL HDL Cholesterol (40-60) mg/dL - Imaging and Cardiology Carotid Dopplers, pulmonary function test results reviewed Assessment and Plan Assessment: 1. Coronary artery disease with previous history of stenting to the proximal LAD, most recent stent in 2017 2. Cardiomyopathy with EF 35-40% 3. Severe mitral regurgitation with dilated mitral annulus and poor coaptation of the mitral leaflets 4. Moderate to severe tricuspid regurgitation 5. Hypertension 6. Hyperlipidemia, uncontrolled on current statin medication 7. Insulin-dependent diabetes mellitus with hemoglobin A1c 9.2% 8. Morbid obesity 9. Stage III chronic kidney disease, baseline creatinine 1.2-1.5 10. Pulmonary hypertension 11. Family history of hypertension and diabetes Plan: 1. Continue to maximize medical therapy with aspirin, statin, beta anaid, ARB. 2. Dr. Sawant did discuss with the patient and her the need for maximization of therapy, dental clearance, and tighter blood sugar control prior to any decision made about surgery. Once she has received dental clearance and has had her therapy maximized she may follow-up in the office with Dr. Sawant to further discuss plans for surgery. This was discussed with the patient and and they are in agreement. 3. STS risk score was calculated and patient is moderate to high risk for surgery given her comorbid status of uncontrolled diabetes, chronic kidney disease, cardiomyopathy. 4. Encourage increased activity, incentive spirometry use 5. Medical management per primary care service 6. Patient may be discharged home from cardiothoracic surgery standpoint to follow up with Dr. Sawant as mentioned Time with Patient: Greater than 30
[2018-12-03 11:35] LABS: Glucose,Whole Blood 165 mg/dL (75-99)
--- NOTE | 2018-12-03 13:45 | P.PN ---
Subjective Pt is seen and examined laying flat in bed in no acute distress. She denies chest pain, shortness of breath, dizziness or palpitations. She underwent cardiac catheterization yesterday revealing left main calcified but free of stenosis, LAD patent at the previously stented segment with evidence of 70-80% stenosis proximal to the stent, circumflex free of significant stenosis and RCA free of significant disease. YULIANA revealed severe mitral regurgitation, cardiomyopathy with moderate to severe LV dysfunction and moderate to severe tricuspid regurgitation. She has been seen in consultation by cardiothoracic surgery never recommending further risk factor modification prior to undergoing surgery. From their perspective she is stable for discharge. Laboratory data reviewed, sodium 142, potassium 4.9, creatinine 2.35 with a GFR of 21. Blood pressure 121/54 heart rate 60 afebrile maintaining oxygen saturation on room air. Currently maintained on torsemide 20 mg twice a day, losartan 100 mg daily, Imdur 30 mg daily carvedilol 6.25 mg twice a day, atorvastatin 80 mg daily, aspirin 81 mg daily and amlodipine 10 mg daily. GENERAL: Well-appearing, well-nourished and in no acute distress. NECK: Supple without JVD or thyromegaly. LUNGS: Breath sounds clear to auscultation bilaterally. Respiration equal and unlabored. No wheezes, rales or rhonchi. HEART: Regular rate and rhythm with systolic ejection murmur at the left sternal border, no rubs or gallops. S1 and S2 heard. EXTREMITIES: Normal range of motion, no edema. No clubbing or cyanosis. Peripheral pulses intact. Right groin soft, nontender with no evidence of bleeding or ecchymosis. Distal pulses strong. ASSESSMENT Ischemic cardiomyopathy, ejection fraction 35-40% Severe mitral regurgitation Moderate to severe tricuspid regurgitation Coronary artery disease Acute on chronic kidney disease Hypertension Dyslipidemia Diabetes mellitus Pulmonary hypertension, RVSP 79 mmHg PLAN Continue IV hydration with 0.9% normal saline at 75 cc/hr. Hold demadex. Recommend nephrology consultation and recommendations. Full admission to the hospital with internal medicine for medical management. Repeat BMP in the morning. We will continue to follow and make recommendations accordingly. Nurse Practitioner note has been reviewed, I agree with a documented findings and plan of care. Patient was seen and examined. Objective - Vital Signs Vital signs: Vital Signs Temp 97.0 F L 12/03/18 08:00 Pulse 60 12/03/18 08:00 Resp 18 12/03/18 04:00 BP 121/54 12/03/18 08:00 Pulse Ox 95 12/03/18 08:00 Intake & Output 12/02/18 12/03/18 12/03/18 18:59 06:59 18:59 Intake Total 1000 700 Output Total 575 300 Balance 425 -300 700 Weight 90.265 kg 89.8 kg Intake: IV 300 Sodium Chloride 0.9% 1, 100 000 ml @ 75 mls/hr IV . [id number] [facility] Rx#:[id number] Oral 700 700 Output: Urine 575 300 Other: Voiding Method Bedpan Toilet # Voids 2 - Labs CBC & Chem 7: 12/02/18 17:00 12/03/18 07:26 Labs: Abnormal Lab Results - Last 24 Hours (Table) 12/02/18 12/02/18 12/02/18 Range/Units 16:55 17:00 17:00 Chloride 109 H (98-107) mmol/L Carbon Dioxide 19 L (22-30) mmol/L BUN 64 H (7-17) mg/dL Creatinine 2.03 H (0.52-1.04) mg/dL Glucose 151 H (74-99) mg/dL POC Glucose (mg/dL) 144 H (75-99) mg/dL Hemoglobin A1c 9.2 H (4.0-6.0) % Triglycerides 225 H (<150) mg/dL Cholesterol 203 H (<200) mg/dL LDL Cholesterol, Calc 120 H (0-99) mg/dL HDL Cholesterol 38 L (40-60) mg/dL 12/02/18 12/03/18 12/03/18 Range/Units 20:31 06:23 07:26 Chloride 111 H (98-107) mmol/L Carbon Dioxide 18 L (22-30) mmol/L BUN 69 H (7-17) mg/dL Creatinine 2.35 H (0.52-1.04) mg/dL Glucose 123 H (74-99) mg/dL POC Glucose (mg/dL) 194 H 105 H (75-99) mg/dL Hemoglobin A1c (4.0-6.0) % Triglycerides (<150) mg/dL Cholesterol (<200) mg/dL LDL Cholesterol, Calc (0-99) mg/dL HDL Cholesterol (40-60) mg/dL 12/03/18 Range/Units 11:31 Chloride (98-107) mmol/L Carbon Dioxide (22-30) mmol/L BUN (7-17) mg/dL Creatinine (0.52-1.04) mg/dL Glucose (74-99) mg/dL POC Glucose (mg/dL) 165 H (75-99) mg/dL Hemoglobin A1c (4.0-6.0) % Triglycerides (<150) mg/dL Cholesterol (<200) mg/dL LDL Cholesterol, Calc (0-99) mg/dL HDL Cholesterol (40-60) mg/dL
[2018-12-03 14:37] VITALS: BMI 38.6
[2018-12-03 16:57] LABS: Glucose,Whole Blood 116 mg/dL (75-99)
[2018-12-03 20:32] LABS: Glucose,Whole Blood 194 mg/dL (75-99)
[2018-12-04 05:46] LABS: Calcium 8.9 mg/dL (8.4-10.2); Potassium 5.1 mmol/L (3.5-5.1)
[2018-12-04 06:30] LABS: Glucose,Whole Blood 137 mg/dL (75-99)
[2018-12-04] MEDS: PANTOPRAZOLE 40 MG TABLET PO SCH (06:49)
[2018-12-04] MEDS: LEVOTHYROXINE 75 MCG TAB PO SCH (06:49)
[2018-12-04] MEDS: INSULIN ASPART (NovoLOG) 100 UNIT/ML VIAL SQ SCH ×4 (06:49→21:31)
[2018-12-04] MEDS: CARVEDILOL 6.25 MG TAB PO SCH ×2 (06:49→18:06)
[2018-12-04] MEDS: SODIUM CHLORIDE 0.9% 1,000 ML IV SCH (06:49)
[2018-12-04] MEDS: INSULIN DETEMIR (LEVEMIR) 100 UNIT/ML SYR SQ SCH ×2 (06:49→21:31)
[2018-12-04] MEDS: POTASSIUM CHLORIDE ER 20 MEQ TAB.ER PO SCH (07:56)
[2018-12-04] MEDS: LOSARTAN 50 MG TAB PO SCH (07:56)
[2018-12-04] MEDS: ALLOPURINOL 100 MG TAB PO SCH (09:11)
[2018-12-04] MEDS: CITALOPRAM HYDROBROMIDE 20 MG TAB PO SCH (09:11)
[2018-12-04] MEDS: amLODIPine 10 MG TAB PO SCH (09:11)
[2018-12-04] MEDS: MULTIVITAMINS, THERA 1 EACH TAB PO SCH (09:11)
[2018-12-04] MEDS: ASPIRIN 81 MG PO SCH (09:11)
[2018-12-04] MEDS: ATORVASTATIN 80 MG TAB PO SCH (09:11)
[2018-12-04] MEDS: ISOSORBIDE MONONITRATE ER 30 MG TAB.ER.24H PO SCH (09:11)
[2018-12-04] MEDS: MAGNESIUM OXIDE 400 MG TAB PO SCH (09:11)
[2018-12-04 12:02] LABS: Glucose,Whole Blood 103 mg/dL (75-99)
--- NOTE | 2018-12-04 12:24 | PN ---
PROGRESS NOTE Cony is a 67-year-old lady who was brought in electively to perform cardiac catheterization and YULIANA. She was found to have a stenosis in the left anterior descending coronary artery and severe mitral regurgitation with cardiomyopathy with moderate to severe LV systolic dysfunction. Patient was seen by Cardiothoracic Surgery, who wanted her to be optimized medically before considering mitral valve repair and revascularization of the LAD. Patient has renal insufficiency and following cardiac catheterization, her renal functions have worsened. Creatinine prior to cardiac cath was 1.5 and on the evening following cardiac cath, it did jump up to 2 and gradually gone to 2.3 and this morning 3.6. Her urine output is diminished. BUN has also increased. Her potassium this morning is around 5.1, suggestive of acute tubular necrosis, probably related to the contrast. We have consulted Nephrology yesterday, does not look like they have seen her yet, but patient was following with Dr. Thornton in the outpatient setting prior to this. Patient this morning is doing well. Her heart rate is 60 beats per minute, blood pressure is 96/40, respiratory rate is 18. Chest exam reveals good air entry bilaterally. Heart exam reveals first and second heart sounds and a 3/6 systolic murmur at the apex. Abdomen is soft. Exam of extremities did not reveal any edema. Groin is free of bleeding, bruit, hematoma. Foot pulses are intact. ASSESSMENT: 1. Acute worsening of chronic renal failure, probably related to contrast-induced nephropathy. 2. Severe mitral regurgitation. 3. Single-vessel coronary artery disease. PLAN: I am going to stop the Cozaar at this time and I am going to await Nephrology input. If the patient continues to have worsening renal functions, she may need dialysis. I explained these issues to the patient. She understands and is in agreement with the plans. MMODL / IJN: [id number] /
[2018-12-04] MEDS: DEXTROSE 5% IN WATER 1,000 ML with SODIUM BICARB (1 MEQ/ML) 150 ML IV SCH (13:15)
--- NOTE | 2018-12-04 14:53 | P.HPIM ---
History of Present Illness This is a pleasant 67 years old female with past medical history of severe mitral valve regurgitation, coronary artery disease, status post stent placement in the proximal LAD in 2017, hypertension, hyperlipidemia, diabetes mellitus, morbid obesity, chronic kidney disease stage III, pulmonary hypertension. He was recently discharged from the hospital on 11/29/2018 for chest pain and increased creatinine. Patient has been evaluated by telesales consultant and machine stonecutter and then discharged. This time patient underwent cardiac cath on 12/02/2018 showing patent coronary arteries and stent with evidence of 70-80% stenosis proximal to the stent. YULIANA revealed severe mitral regurgitation and cardiomyopathy with moderate to severe LV dysfunction. Patient has been evaluated by cardiothoracic surgery team recommended maximizing medical therapy with dental clearance prior to surgery, during which patient can be discharged and follow-up with cardiothoracic team as an outpatient. Review of Systems CONSTITUTIONAL: No fever, no malaise, no fatigue. HEENT: No recent visual problems or hearing problems. Denied any sore throat. CARDIOVASCULAR: No orthopnea, PND, no palpitations, no syncope. PULMONARY: No shortness of breath, no cough, no hemoptysis. GASTROINTESTINAL: No diarrhea, no nausea, no vomiting, no abdominal pain. Normoactive bowel sounds. NEUROLOGICAL: No headaches, no weakness, no numbness. HEMATOLOGICAL: Denies any bleeding or petechiae. GENITOURINARY: Denies any burning micturition, frequency, or urgency. MUSCULOSKELETAL/RHEUMATOLOGICAL: Denies any joint pain, swelling, or any muscle pain. ENDOCRINE: Denies any polyuria or polydipsia. Past Medical History Past Medical History: Coronary Artery Disease (CAD), Chest Pain / Angina, Heart Failure, Diabetes Mellitus, Eye Disorder, Hyperlipidemia, Hypertension, Myocardial Infarction (LA), Renal Disease, Sleep Apnea/CPAP/BIPAP, Thyroid Disorder Additional Past Medical History / Comment(s): Right cataract. CAD with Stent to Proximal LAD 03/31/2015. Not using CPAP, Recent admit w/ CP, UTI. Cardiac stent to proximal LAD 2016 Last Myocardial Infarction Date:: 03/31/2015 History of Any Multi-Drug Resistant Organisms: None Reported Past Surgical History: Breast Surgery, Heart Catheterization, Heart Catheterization With Stent Additional Past Surgical History / Comment(s): Left breast bx-neg, buttocks sx- pt stated:" they told me I had gangrene and had sx to remove", lt cataract, Heart Cath 11/18/16. Past Anesthesia/Blood Transfusion Reactions: No Reported Reaction Date of Last Stent Placement:: 2014 Past Psychological History: No Psychological Hx Reported Smoking Status: Never smoker Past Alcohol Use History: None Reported Past Drug Use History: None Reported - Past Family History Father Family Medical History: Unable to Obtain Additional Family Medical History / Comment(s): Father from motor vehicle accident Mother Family Medical History: Diabetes Mellitus, Hypertension Medications and Allergies Home Medications Medication Instructions Recorded Confirmed Type Aspirin 81 mg PO DAILY #1 chewable 06/05/15 12/03/18 Rx Multivitamins, Thera [Multivitamin 1 tab PO DAILY 07/02/15 12/03/18 History (formulary)] Atorvastatin [Lipitor] 80 mg PO DAILY 08/01/15 12/03/18 History Isosorbide Mononitrate ER [Imdur] 30 mg PO DAILY 08/01/15 12/03/18 History Levothyroxine Sodium [Synthroid] 75 mcg PO DAILY 05/01/16 12/03/18 History Citalopram Hydrobromide [CeleXA] 20 mg PO DAILY tab 08/14/16 12/03/18 Rx Meclizine [Antivert] 12.5 mg PO BID PRN 11/18/16 12/03/18 History Pantoprazole [Protonix] 40 mg PO DAILY 07/25/17 12/03/18 History Albuterol Inhaler [Ventolin Hfa 2 puff INHALATION RT-Q6H PRN 11/26/18 12/03/18 History Inhaler] Allopurinol [Zyloprim] 300 mg PO DAILY 11/26/18 12/03/18 History Carvedilol [Coreg] 6.25 mg PO BID 11/26/18 12/03/18 History INSULIN ASPART (NovoLOG) [NovoLOG See Protocol SQ AC-TID 11/26/18 12/03/18 History (formulary)] Insulin Detemir (Levemir) [Levemir] 30 unit SQ BID 11/26/18 12/03/18 History Losartan Potassium 100 mg PO DAILY 11/26/18 12/03/18 History Magnesium Oxide [Razo] 500 mg PO DAILY 11/26/18 12/03/18 History Nitroglycerin Sl Tabs [Nitrostat] 0.4 mg SUBLINGUAL Q5M PRN 11/26/18 12/03/18 History Potassium Chloride ER [K-Dur 20] 20 meq PO DAILY 11/26/18 12/03/18 History Torsemide [Demadex] 20 mg PO BID 11/26/18 12/03/18 History amLODIPine [Norvasc] 10 mg PO DAILY 11/26/18 12/03/18 History Acetaminophen Tab [Tylenol] 650 mg PO Q6HR PRN tab 11/29/18 12/03/18 Rx Cefuroxime Axetil [Ceftin] 500 mg PO BID 3 Days #6 tab 11/29/18 12/03/18 Rx Allergies Allergy/AdvReac Type Severity Reaction Status Date / Time No Known Allergies Allergy Verified 12/03/18 14:29 Physical Exam Vitals: Vital Signs Temp Pulse Resp BP BP Pulse Ox 12/04/18 12:00 97.8 F 74 18 102/51 95 12/04/18 11:13 64 12/04/18 08:00 97.9 F 64 18 115/50 97 12/04/18 03:07 97.6 F 66 18 96/40 93 L 12/04/18 03:03 63 18 12/03/18 23:52 98.1 F 63 17 90/38 95 12/03/18 20:00 98.3 F 60 17 96/48 96 12/03/18 16:00 65 121/54 96 Intake and Output 12/03/18 12/04/18 12/04/18 22:59 06:59 14:59 Intake Total 290 240 Output Total 300 Balance 290 -300 240 Intake: Intake, IV Titration 50 Amount Albumin Human 25% 50 ml 50 In Empty Bag 1 bag @ 100 mls/hr IVPB ONCE ONE Rx#: [id number] Oral 240 240 Output: Urine 300 Other: Voiding Method Toilet Toilet # Voids 1 Weight 88.7 kg GENERAL: The patient is alert and oriented x3, not in any acute distress. Well developed, well nourished. HEENT: Pupils are round and equally reacting to light. EOMI. No scleral icterus. No conjunctival pallor. Normocephalic, atraumatic. No pharyngeal erythema. No thyromegaly. CARDIOVASCULAR: S1 and S2 present. No murmurs, rubs, or gallops. PULMONARY: Chest is clear to auscultation, no wheezing or crackles. ABDOMEN: Soft, nontender, nondistended, normoactive bowel sounds. No palpable organomegaly. MUSCULOSKELETAL: No joint swelling or deformity. EXTREMITIES: No cyanosis, clubbing, or pedal edema. NEUROLOGICAL: Gross neurological examination did not reveal any focal deficits. SKIN: No rashes. Results CBC & Chem 7: 12/02/18 17:00 12/04/18 05:21 Labs: Abnormal Lab Results - Last 24 Hours (Table) 12/03/18 12/03/18 12/04/18 Range/Units 16:45 20:25 05:21 Chloride 113 H (98-107) mmol/L Carbon Dioxide 12 L (22-30) mmol/L BUN 86 H (7-17) mg/dL Creatinine 3.62 H (0.52-1.04) mg/dL Glucose 138 H (74-99) mg/dL POC Glucose (mg/dL) 116 H 194 H (75-99) mg/dL 12/04/18 12/04/18 Range/Units 06:28 11:58 Chloride (98-107) mmol/L Carbon Dioxide (22-30) mmol/L BUN (7-17) mg/dL Creatinine (0.52-1.04) mg/dL Glucose (74-99) mg/dL POC Glucose (mg/dL) 137 H 103 H (75-99) mg/dL Thrombosis Risk Factor Assmnt - Choose All That Apply Any of the Below Risk Factors Present?: Yes Each Factor Represents 1 point: Obesity (BMI >25) Other Risk Factors: Yes Each Risk Factor Represents 2 Points: Age 61-74 years Thrombosis Risk Factor Assessment Total Risk Factor Score: 3 Thrombosis Risk Factor Assessment Level: Moderate Risk Assessment and Plan Assessment: Severe mitral valve regurgitation , severe tricuspid regurgitation cardiomyopathy with moderate to severe LV dysfunction with ejection fraction 35- 40% Acute kidney injuryPossible element of contrast-induced nephropathy, could be related to Cardiac cath Chronic kidney disease stage III History of coronary artery disease, status post stent placement in the proxima LAD , 2017 Hypertension Diabetes mellitus Hyperlipidemia Obesity Plan: This is a pleasant 67 years old female who presents with acute kidney injury and severe valvular heart disease. Zmt Operator been consulted. Cardiology and cardiothoracic team evaluated the patient and recommended to continue with medical management and to optimize patient medically, cardiothoracic team recommended patient can be discharged and follow-up with her dentist and later on with thoracic surgeons as an outpatient.Labs and medication were reviewed.. Continue same treatment. Continue with symptomatic treatment. Resume home medication. Monitor lytes and vitals. DVT and GI prophylaxis. Further recommendations of the clinical course of the patient DVT prophylaxis: Subcutaneous heparin GI Prophylaxis: Pepcid Prognosis is guarded
[2018-12-04 16:56] LABS: Glucose,Whole Blood 135 mg/dL (75-99)
[2018-12-04] MEDS ORDERED: DEXTROSE 5% IN WATER 250 ML IV ONE (17:00)
[2018-12-04] MEDS: FAMOTIDINE 20 MG/2 ML VIAL IV SCH (18:05)
[2018-12-04 18:40] LABS: Appearance,Urine Cloudy (Clear); Bacteria,Urine Occasional /hpf; Bilirubin,Urine Negative (Negative); Blood,Urine Negative (Negative); Color,Urine Yellow; Glucose,Urine (UA) Negative (Negative); Hyaline Casts,Urine 29 /lpf (0-2); Ketones,Urine Negative (Negative); Leukocyte Esterase,Urine Large (Negative); Mucus,Urine Rare /hpf; Nitrite,Urine Negative (Negative); Protein,Urine Trace (Negative); RBC,Urine 9 /hpf (0-5); Specific Gravity,Urine 1.015 (1.001-1.035); Squamous Epithelial Cell,Urine 9 /hpf (0-4); Urobilinogen,Urine <2.0 mg/dL (<2.0); WBC,Urine 15 /hpf (0-5)
[2018-12-04 21:25] LABS: Glucose,Whole Blood 179 mg/dL (75-99)
[2018-12-04] MEDS: HEPARIN SODIUM,PORCINE 5,000 UNIT/ML 1 ML VIAL SQ SCH (21:31)
--- NOTE | 2018-12-04 22:06 | CONS ---
CONSULTATION REASON FOR CONSULT: Renal failure. HISTORY OF PRESENT ILLNESS: The patient is a 67-year-old female with history of chronic kidney disease, NKF stage 3, secondary to diabetic nephropathy and nephrosclerosis. Baseline creatinine 1.5-1.3 mg/dL. The patient was admitted to the hospital as her labs had progressively worsened as outpatient. The patient was admitted to the hospital about a week ago for chest pains. She had a cardiac catheterization on 12/02/2018 as an outpatient for further evaluation of the mitral valve regurgitation. She was found to have coronary artery disease as well with LAD stenosis. Serum creatinine was 2.03 on December 02, which was the day of the cardiac cath and yesterday it was up to 2.3 and this morning it is up to 3.6 mg/dL. Prior to that we have a creatinine of 1.5 on 11/29/2018. The patient's blood pressure has been on the low side with systolic in the 96 mmHg range this morning. The patient has been maintained on Cozaar which was decreased to 50 mg daily. On her last visit, I am not sure the patient was taking whole tablet or half the dose prior to her cardiac catheterization. I do not see any significantly low blood pressures yesterday. The patient has not voided since this morning. Bladder scan showed only about 130 mL. She is not on any other nephrotoxic medications. PAST MEDICAL HISTORY: CKD stage 3 secondary to nephrosclerosis and diabetic nephropathy, baseline creatinine about 1.3-1.5 mg/dL; hypertension, hyperlipidemia, hypothyroidism, gastroesophageal reflux disease. PAST SURGICAL HISTORY: Previous cardiac catheterization, coronary stent placement, left breast biopsy which was negative, cataract surgery, recent cardiac cath on December 02 and previous cardiac cath in 2016 and 2014. SOCIAL HISTORY: Negative for smoking, drug abuse or alcohol abuse. MEDICATIONS: Include Lipitor, Imdur, Synthroid, Antivert, Protonix, Zyloprim, Coreg, losartan, Demadex, Norvasc, potassium, Celexa, Aldactone, aspirin. ALLERGIES: None. REVIEW OF SYSTEMS: As per HPI. Other systems negative. EXAMINATION: Patient is currently comfortable, awake, alert, oriented x3, not in any acute distress. Blood pressure 115/50, heart rate 64 per minute. She is afebrile. Examination of the heart S1, S2. Examination of the lungs, bilateral breath sounds are heard. Abdomen is soft, nontender, obese. Examination lower extremities shows no evidence of edema. SPRING UPHOLSTERER exam grossly intact. LAB: Show sodium 137, potassium 5.1, chloride 113, CO2 ( ), BUN 86, serum creatinine 3.62. ASSESSMENT: 1. Acute kidney injury, acute tubular necrosis currently only oliguric secondary to hypotension hypoperfusion as well as most likely component of contrast nephropathy as well. Her creatinine has significantly jumped up over the last day. I will continue with the IV fluids for now and if the patient is not able to void and there is no significant urine output on the bladder scan, we will give her a dose of Lasix. 2. Metabolic acidosis, non gap secondary to renal failure. Start IV bicarb. 3. Coronary artery disease, status post cardiac catheterization 12/02/2018. 4. Ischemic cardiomyopathy, EF 35% to 40%. 5. Severe mitral regurgitation. 6. Hypertension. Blood pressure is currently low. I will discontinue the amlodipine and the Cozaar for now and we will add parameters to Coreg. 7. Chronic kidney disease, stage 3 secondary to diabetic nephropathy, nephrosclerosis. Baseline creatinine 13-1.5 mg/dL. PLAN: Change IV fluids to IV bicarb. Continue IV fluids. Hold diuretics. Hold antihypertensive medications. Repeat labs in a.m. Monitor urine output. Avoid any other nephrotoxic medications. Check urinalysis as well. Thank you for this consultation. We will continue to follow the patient with you during her hospitalization. MMODL / IJN: [id number] /
[2018-12-05 06:15] LABS: Basophils % (A) 0 %; Eosinophils # (A) 0.5 k/uL (0-0.7); Eosinophils % (A) 6 %; HGB 10.4 gm/dL (11.4-16.0); Lymphocytes # (A) 2.1 k/uL (1.0-4.8); Lymphocytes % (A) 26 %; MCH 29.7 pg (25.0-35.0); MCHC 32.4 g/dL (31.0-37.0); MCV 91.7 fL (80.0-100.0); Mean Platelet Volume 7.1; Monocytes # (A) 0.5 k/uL (0-1.0); Monocytes % (A) 6 %; Neutrophils # (A) 4.9 k/uL (1.3-7.7); Neutrophils % (A) 61 %; Platelet Count 224 k/uL (150-450); RBC 3.49 m/uL (3.80-5.40); WBC 8.1 k/uL (3.8-10.6)
[2018-12-05 06:24] LABS: Calcium 9.1 mg/dL (8.4-10.2); Potassium 4.5 mmol/L (3.5-5.1)
[2018-12-05] MEDS: INSULIN ASPART (NovoLOG) 100 UNIT/ML VIAL SQ SCH ×4 (06:48→20:59)
[2018-12-05] MEDS: PANTOPRAZOLE 40 MG TABLET PO SCH (06:52)
[2018-12-05] MEDS: INSULIN DETEMIR (LEVEMIR) 100 UNIT/ML SYR SQ SCH ×2 (06:52→20:59)
[2018-12-05] MEDS: CARVEDILOL 6.25 MG TAB PO SCH ×2 (06:52→17:53)
[2018-12-05] MEDS: LEVOTHYROXINE 75 MCG TAB PO SCH (06:52)
[2018-12-05] MEDS: DEXTROSE 5% IN WATER 1,000 ML with SODIUM BICARB (1 MEQ/ML) 150 ML IV SCH ×2 (06:53→17:40)
[2018-12-05 06:55] LABS: Glucose,Whole Blood 91 mg/dL (75-99)
[2018-12-05] MEDS: CITALOPRAM HYDROBROMIDE 20 MG TAB PO SCH (08:38)
[2018-12-05] MEDS: MULTIVITAMINS, THERA 1 EACH TAB PO SCH (08:38)
[2018-12-05] MEDS: ASPIRIN 81 MG PO SCH (08:38)
[2018-12-05] MEDS: ISOSORBIDE MONONITRATE ER 30 MG TAB.ER.24H PO SCH (08:38)
[2018-12-05] MEDS: HEPARIN SODIUM,PORCINE 5,000 UNIT/ML 1 ML VIAL SQ SCH ×2 (08:38→21:00)
[2018-12-05] MEDS: FAMOTIDINE 20 MG/2 ML VIAL IV SCH (08:38)
[2018-12-05] MEDS: ALLOPURINOL 100 MG TAB PO SCH (08:38)
[2018-12-05] MEDS: ATORVASTATIN 80 MG TAB PO SCH (08:38)
[2018-12-05] MEDS: MAGNESIUM OXIDE 400 MG TAB PO SCH (08:38)
[2018-12-05] MEDS: POTASSIUM CHLORIDE ER 20 MEQ TAB.ER PO SCH (08:39)
[2018-12-05 11:50] LABS: Glucose,Whole Blood 127 mg/dL (75-99)
--- NOTE | 2018-12-05 13:10 | P.PN ---
Subjective This is a pleasant 67 years old female with past medical history of severe mitral valve regurgitation, coronary artery disease, status post stent placement in the proximal LAD in 2017, hypertension, hyperlipidemia, diabetes mellitus, morbid obesity, chronic kidney disease stage III, pulmonary hypertension. He was recently discharged from the hospital on 11/29/2018 for chest pain and increased creatinine. Patient has been evaluated by tar heel and smoking tobacco packer hand and then discharged. This time patient underwent cardiac cath on 12/02/2018 showing patent coronary arteries and stent with evidence of 70-80% stenosis proximal to the stent. YULIANA revealed severe mitral regurgitation and cardiomyopathy with moderate to severe LV dysfunction. Patient has been evaluated by cardiothoracic surgery team recommended maximizing medical therapy with dental clearance prior to surgery, during which patient can be discharged and follow-up with cardiothoracic team as an outpatient. 12/05/2018 Patient lying in bed comfortable. No chest pain or dyspnea. Patient was able to walk in the hallway today with no exertional dyspnea. She still have diarrhea but only once a day. However she denies abdominal pain or nausea vomiting. No signs symptoms of urinary problems. No suprapubic tenderness. Vitas looks stable. Creatinine is 3.5 today. Sugar is controlled. Senior Living Sales Counselor saw the patient and recommended to continue with IV fluids and to hold diuretics and antihypertensive for now. And to monitor urine output and check urinalysis. Urinalysis is suspicious for infection. We will order of urine culture and start patient on ceftriaxone. Objective - Vital Signs Vital signs: Vital Signs Temp 98.2 F 12/05/18 12:00 Pulse 63 12/05/18 12:00 Resp 18 12/05/18 12:00 BP 128/64 12/05/18 12:00 Pulse Ox 96 12/05/18 12:00 Intake & Output 12/04/18 12/05/18 12/05/18 18:59 06:59 18:59 Intake Total 480 560 Output Total 250 200 Balance 230 360 Weight 88.6 kg Intake: Intake, IV Titration 560 Amount Dextrose 5% in Water 1, 560 000 ml @ 80 mls/hr IV . [id number] EVELIA with Sodium Bicarb (1 Meq/ml) 150 ml Rx#:[id number] Oral 480 Output: Urine 250 200 Other: Voiding Method Toilet # Voids 1 - Exam GENERAL: The patient is alert and oriented x3, not in any acute distress. Well developed, well nourished. HEENT: Pupils are round and equally reacting to light. EOMI. No scleral icterus. No conjunctival pallor. Normocephalic, atraumatic. No pharyngeal erythema. No thyromegaly. CARDIOVASCULAR: S1 and S2 present. No murmurs, rubs, or gallops. PULMONARY: Chest is clear to auscultation, no wheezing or crackles. ABDOMEN: Soft, nontender, nondistended, normoactive bowel sounds. No palpable organomegaly. MUSCULOSKELETAL: No joint swelling or deformity. EXTREMITIES: No cyanosis, clubbing, or pedal edema. NEUROLOGICAL: Gross neurological examination did not reveal any focal deficits. SKIN: No rashes. - Labs CBC & Chem 7: 12/05/18 05:35 12/05/18 05:35 Labs: Abnormal Lab Results - Last 24 Hours (Table) 12/04/18 12/04/18 12/04/18 Range/Units 16:51 18:00 21:18 RBC (3.80-5.40) m/uL Hgb (11.4-16.0) gm/dL Hct (34.0-46.0) % Chloride (98-107) mmol/L Carbon Dioxide (22-30) mmol/L BUN (7-17) mg/dL Creatinine (0.52-1.04) mg/dL POC Glucose (mg/dL) 135 H 179 H (75-99) mg/dL Urine Appearance Cloudy H (Clear) Urine Protein Trace H (Negative) Ur Leukocyte Esterase Large H (Negative) Urine RBC 9 H (0-5) /hpf Urine WBC 15 H (0-5) /hpf Ur Squamous Epith Cells 9 H (0-4) /hpf Urine Bacteria Occasional H (None) /hpf Hyaline Casts 29 H (0-2) /lpf Urine Mucus Rare H (None) /hpf 12/05/18 12/05/18 12/05/18 Range/Units 05:35 05:35 11:48 RBC 3.49 L (3.80-5.40) m/uL Hgb 10.4 L (11.4-16.0) gm/dL Hct 32.0 L (34.0-46.0) % Chloride 111 H (98-107) mmol/L Carbon Dioxide 20 L (22-30) mmol/L BUN 92 H (7-17) mg/dL Creatinine 3.55 H (0.52-1.04) mg/dL POC Glucose (mg/dL) 127 H (75-99) mg/dL Urine Appearance (Clear) Urine Protein (Negative) Ur Leukocyte Esterase (Negative) Urine RBC (0-5) /hpf Urine WBC (0-5) /hpf Ur Squamous Epith Cells (0-4) /hpf Urine Bacteria (None) /hpf Hyaline Casts (0-2) /lpf Urine Mucus (None) /hpf Assessment and Plan Assessment: Severe mitral valve regurgitation , severe tricuspid regurgitation cardiomyopathy with moderate to severe LV dysfunction with ejection fraction 35- 40% Acute kidney injuryPossible element of contrast-induced nephropathy, could be related to Cardiac cath Acute urinary tract infection, possible Chronic kidney disease stage III History of coronary artery disease, status post stent placement in the proxima LAD , 2017 Hypertension Diabetes mellitus Hyperlipidemia Obesity Plan: This is a pleasant 67 years old female who presents with acute kidney injury and severe valvular heart disease. Senior Living Sales Counselor been consulted and recommended to continue with IV fluids and hold diuretics. Start ceftriaxone. Cardiology and cardiothoracic team evaluated the patient and recommended to continue with medical management and to optimize patient medically, cardiothoracic team recommended patient can be discharged and follow-up with her dentist and later on with thoracic surgeons as an outpatient.Labs and medication were reviewed.. Continue same treatment. Continue with symptomatic treatment. Resume home medication. Monitor lytes and vitals. DVT and GI prophylaxis. Further recommendations of the clinical course of the patient DVT prophylaxis: Subcutaneous heparin GI Prophylaxis: Pepcid Prognosis is guarded
--- NOTE | 2018-12-05 13:53 | PN ---
PROGRESS NOTE Patient is seen for followup for acute kidney injury. She was hypotensive yesterday and oliguric. The patient finally had some urine output last night and her creatinine is also slightly better from 3.6 down to 3.5 mg/dL. She is currently maintained on IV bicarb. Overall, patient states she feels fairly well. Denies any complaints of nausea, vomiting, chest pain, or shortness of breath. PHYSICAL EXAMINATION: On examination, blood pressure is 128/64, heart rate 63 per minute. She is afebrile. Examination of the heart S1, S2. Examination of the lungs, bilateral breath sounds are heard. Decreased breath sounds at bases. Abdomen is soft, nontender. Examination lower extremities shows no significant edema. ENGLISH FACULTY MEMBER exam grossly intact. LABS: Show sodium 140, potassium 4.5, chloride 111, CO2 is 20, BUN 92, serum creatinine 3.5. ASSESSMENT: 1. Acute kidney injury, acute tubular necrosis, secondary to hypotension hypoperfusion initially oliguric, currently nonoliguric and improving. 2. Hypertension. Blood pressure is currently low. Patient is off of antihypertensive medications. 3. Coronary artery disease status post cardiac catheterization. 4. Severe mitral regurgitation. 5. Metabolic acidosis secondary to renal failure, maintained on IV bicarb. 6. Hypotension, currently off of blood pressure medications. PLAN: Continue with the bicarb drip for now. Monitor for volume overload. Repeat labs in a.m. MMODL / IJN: [id number] /
[2018-12-05 17:14] LABS: Glucose,Whole Blood 127 mg/dL (75-99)
[2018-12-05 20:28] LABS: Glucose,Whole Blood 154 mg/dL (75-99)
--- NOTE | 2018-12-05 22:05 | PN ---
PROGRESS NOTE Cony is a 67-year-old lady who underwent cardiac catheterization for mitral regurgitation, developed acute tubular necrosis. She is putting out urine now and the creatinine has come down a little today. She is otherwise doing well and denies chest pain or difficulty in breathing. On exam, comfortable at rest. Vital signs are stable. Chest exam reveals good air entry bilaterally. Heart exam reveals first and second heart sounds and a systolic murmur at the apex. Abdomen is soft. Exam of the extremities did not reveal edema. The patient is on aspirin, Lipitor, Coreg, insulin, Imdur, Synthroid. ASSESSMENT: 1. Acute exacerbation of chronic renal failure. 2. Coronary artery disease. 3. Mitral regurgitation. PLAN: Will continue with supportive care and hopefully home over the next 48 hours. MMODL / IJN: [id number] /
[2018-12-06 06:25] LABS: Basophils % (A) 0 %; Eosinophils # (A) 0.4 k/uL (0-0.7); Eosinophils % (A) 6 %; HCT 29.4 % (34.0-46.0); HGB 9.8 gm/dL (11.4-16.0); Lymphocytes # (A) 1.9 k/uL (1.0-4.8); Lymphocytes % (A) 26 %; MCH 30.2 pg (25.0-35.0); MCHC 33.5 g/dL (31.0-37.0); Mean Platelet Volume 7.3; Monocytes # (A) 0.4 k/uL (0-1.0); Monocytes % (A) 6 %; Neutrophils # (A) 4.4 k/uL (1.3-7.7); Neutrophils % (A) 61 %; Platelet Count 211 k/uL (150-450); RBC 3.26 m/uL (3.80-5.40); RDW 14.6 % (11.5-15.5); WBC 7.3 k/uL (3.8-10.6)
[2018-12-06 06:42] LABS: Calcium 8.9 mg/dL (8.4-10.2); Potassium 3.6 mmol/L (3.5-5.1)
[2018-12-06 06:46] LABS: Glucose,Whole Blood 97 mg/dL (75-99)
[2018-12-06] MEDS: CARVEDILOL 6.25 MG TAB PO SCH ×2 (06:46→16:52)
[2018-12-06] MEDS: LEVOTHYROXINE 75 MCG TAB PO SCH (06:46)
[2018-12-06] MEDS: PANTOPRAZOLE 40 MG TABLET PO SCH (06:46)
[2018-12-06] MEDS: INSULIN ASPART (NovoLOG) 100 UNIT/ML VIAL SQ SCH ×4 (06:47→20:39)
[2018-12-06] MEDS: INSULIN DETEMIR (LEVEMIR) 100 UNIT/ML SYR SQ SCH ×2 (06:54→20:39)
[2018-12-06] MEDS: DEXTROSE 5% IN WATER 1,000 ML with SODIUM BICARB (1 MEQ/ML) 150 ML IV SCH (09:11)
[2018-12-06] MEDS: ISOSORBIDE MONONITRATE ER 30 MG TAB.ER.24H PO SCH (09:17)
[2018-12-06] MEDS: MULTIVITAMINS, THERA 1 EACH TAB PO SCH (09:17)
[2018-12-06] MEDS: MAGNESIUM OXIDE 400 MG TAB PO SCH (09:17)
[2018-12-06] MEDS: ATORVASTATIN 80 MG TAB PO SCH (09:17)
[2018-12-06] MEDS: ALLOPURINOL 100 MG TAB PO SCH (09:17)
[2018-12-06] MEDS: ASPIRIN 81 MG PO SCH (09:18)
[2018-12-06] MEDS: HEPARIN SODIUM,PORCINE 5,000 UNIT/ML 1 ML VIAL SQ SCH ×2 (09:18→20:39)
[2018-12-06] MEDS: FAMOTIDINE 20 MG/2 ML VIAL IV SCH (09:18)
[2018-12-06] MEDS: CITALOPRAM HYDROBROMIDE 20 MG TAB PO SCH (09:18)
--- NOTE | 2018-12-06 11:00 | P.PN ---
Subjective This is a pleasant 67 years old female with past medical history of severe mitral valve regurgitation, coronary artery disease, status post stent placement in the proximal LAD in 2017, hypertension, hyperlipidemia, diabetes mellitus, morbid obesity, chronic kidney disease stage III, pulmonary hypertension. He was recently discharged from the hospital on 11/29/2018 for chest pain and increased creatinine. Patient has been evaluated by cell feed department supervisor and hadoop engineer and then discharged. This time patient underwent cardiac cath on 12/02/2018 showing patent coronary arteries and stent with evidence of 70-80% stenosis proximal to the stent. YULIANA revealed severe mitral regurgitation and cardiomyopathy with moderate to severe LV dysfunction. Patient has been evaluated by cardiothoracic surgery team recommended maximizing medical therapy with dental clearance prior to surgery, during which patient can be discharged and follow-up with cardiothoracic team as an outpatient. 12/05/2018 Patient lying in bed comfortable. No chest pain or dyspnea. Patient was able to walk in the hallway today with no exertional dyspnea. She still have diarrhea but only once a day. However she denies abdominal pain or nausea vomiting. No signs symptoms of urinary problems. No suprapubic tenderness. Vitas looks stable. Creatinine is 3.5 today. Sugar is controlled. Weed Controller saw the patient and recommended to continue with IV fluids and to hold diuretics and antihypertensive for now. And to monitor urine output and check urinalysis. Urinalysis is suspicious for infection. We will order of urine culture and start patient on ceftriaxone. 12/06/2018 Patient is awake. No chest pain or dyspnea. She has a formed bowel movement today. No dysuria or urgency. No leg edema and lung examination with no crepitation. She is hemodynamically stable. Creatinine improving to 1.9. Possible discharge in 24-48 hours. Objective - Vital Signs Vital signs: Vital Signs Temp 98.2 F 12/06/18 08:00 Pulse 67 12/06/18 08:00 Resp 18 12/06/18 08:00 BP 132/57 12/06/18 08:00 Pulse Ox 98 12/06/18 08:00 Intake & Output 12/05/18 12/06/18 12/06/18 18:59 06:59 18:59 Intake Total 240 Output Total 300 Balance 240 -300 Weight 90.7 kg Intake: Oral 240 Output: Urine 300 Other: Voiding Method Toilet # Voids 1 - Exam GENERAL: The patient is alert and oriented x3, not in any acute distress. Well developed, well nourished. HEENT: Pupils are round and equally reacting to light. EOMI. No scleral icterus. No conjunctival pallor. Normocephalic, atraumatic. No pharyngeal erythema. No thyromegaly. CARDIOVASCULAR: S1 and S2 present. No murmurs, rubs, or gallops. PULMONARY: Chest is clear to auscultation, no wheezing or crackles. ABDOMEN: Soft, nontender, nondistended, normoactive bowel sounds. No palpable organomegaly. MUSCULOSKELETAL: No joint swelling or deformity. EXTREMITIES: No cyanosis, clubbing, or pedal edema. NEUROLOGICAL: Gross neurological examination did not reveal any focal deficits. SKIN: No rashes. - Labs CBC & Chem 7: 12/06/18 06:08 12/06/18 06:08 Labs: Abnormal Lab Results - Last 24 Hours (Table) 12/05/18 12/05/18 12/05/18 Range/Units 11:48 17:09 20:27 RBC (3.80-5.40) m/uL Hgb (11.4-16.0) gm/dL Hct (34.0-46.0) % Chloride (98-107) mmol/L BUN (7-17) mg/dL Creatinine (0.52-1.04) mg/dL Glucose (74-99) mg/dL POC Glucose (mg/dL) 127 H 127 H 154 H (75-99) mg/dL 12/06/18 12/06/18 Range/Units 06:08 06:08 RBC 3.26 L (3.80-5.40) m/uL Hgb 9.8 L (11.4-16.0) gm/dL Hct 29.4 L (34.0-46.0) % Chloride 111 H (98-107) mmol/L BUN 72 H (7-17) mg/dL Creatinine 1.94 H (0.52-1.04) mg/dL Glucose 101 H (74-99) mg/dL POC Glucose (mg/dL) (75-99) mg/dL Assessment and Plan Assessment: Severe mitral valve regurgitation , severe tricuspid regurgitation cardiomyopathy with moderate to severe LV dysfunction with ejection fraction 35- 40% Acute kidney injuryPossible element of contrast-induced nephropathy, could be related to Cardiac cath Acute urinary tract infection, possible Chronic kidney disease stage III History of coronary artery disease, status post stent placement in the proxima LAD , 2017 Hypertension Diabetes mellitus Hyperlipidemia Obesity Plan: This is a pleasant 67 years old female who presents with acute kidney injury and severe valvular heart disease. Weed Controller been consulted and recommended to continue with IV fluids and hold diuretics. Start ceftriaxone. Cardiology and cardiothoracic surgery team evaluated the patient and recommended to continue with medical management and to optimize patient medically, cardiothoracic team recommended patient can be discharged and follow-up with her dentist and later on with thoracic surgeons as an outpatient.Labs and medication were reviewed.. Continue same treatment. Continue with symptomatic treatment. Resume home medication. Monitor lytes and vitals. DVT and GI prophylaxis. Further recommendations of the clinical course of the patient DVT prophylaxis: Subcutaneous heparin GI Prophylaxis: Pepcid PT OT: Home Prognosis is guarded Possible discharge in 24-48 hours
--- NOTE | 2018-12-06 11:38 | PN ---
PROGRESS NOTE A 67-year-old lady who is admitted to hospital with acute renal failure secondary to contrast induced nephropathy. She is doing much better, putting out urine. Renal functions have improved. Her creatinine has dropped to 1.94 from 3.55 yesterday. She is free of symptoms. On exam, she is comfortable at rest. Vital signs are stable. Chest exam reveals good air entry bilaterally. Heart exam reveals first and second heart sounds and a systolic murmur at the apex. Abdomen is soft. Exam of extremities did not reveal any edema. Peripheral pulses are felt, O2 sat is 97% on room air. ASSESSMENT: 1. Acute exacerbation of chronic renal failure secondary to contrast induced nephropathy. 2. Severe mitral regurgitation. 3. Coronary artery disease. PLAN: Patient will continue with current medical therapy. She is stable for discharge as her renal functions are improving, so whenever the environmental engineering manager thinks she is good, we can let her go home. She will follow up with me in the office and once she is medically optimized, we will have Dr. Sawant reassess her. MMODL / IJN: [id number] /
[2018-12-06 12:01] LABS: Glucose,Whole Blood 167 mg/dL (75-99)
[2018-12-06] MEDS: SODIUM CHLORIDE 0.9% 1,000 ML IV SCH (16:46)
[2018-12-06 16:49] LABS: Glucose,Whole Blood 215 mg/dL (75-99)
--- NOTE | 2018-12-06 19:32 | PN ---
PROGRESS NOTE Patient is seen for followup for acute kidney injury on top of chronic kidney disease. Renal function has improved significantly. Patient is off COTY inhibitors and other antihypertensive medications as her blood pressure was low. She is status post cardiac catheterization with oliguric ATN initially, currently nonoliguric with improving renal function. PHYSICAL EXAMINATION: On examination today, blood pressure was 132/57, heart rate 67 per minute. She is afebrile. Examination of the heart S1, S2. Examination of the lungs, bilateral breath sounds are heard. Abdomen is soft, nontender. Examination lower extremities shows no evidence of edema. ICT QUALITY ASSURANCE ENGINEER exam grossly intact. LABS: Shows sodium 142, potassium 3.6, chloride 111, BUN 72, serum creatinine 1.94, hemoglobin 9.8. ASSESSMENT: 1. Acute kidney injury, acute tubular necrosis, nonoliguric, currently initially oliguric, now improved. The patient can be discharged from nephrology standpoint. 2. Chronic kidney disease, NKF stage 3, with previous creatinine around 1.3-1.5 mg/dL secondary to nephrosclerosis and diabetic nephropathy. 3. Ischemic cardiomyopathy, EF 35-40%. 4. Severe mitral regurgitation and coronary artery disease status post cardiac catheterization on 12/02/2018. 5. Metabolic acidosis secondary to renal failure, currently improved. The patient is maintained on IV bicarb. PLAN: DC IV bicarb. The patient can be discharged from nephrology standpoint. Repeat labs and follow up as outpatient in about one week's time. MMODL / IJN: [id number] /
[2018-12-06 20:21] LABS: Glucose,Whole Blood 154 mg/dL (75-99)
[2018-12-07] MEDS: PANTOPRAZOLE 40 MG TABLET PO SCH (06:39)
[2018-12-07] MEDS: LEVOTHYROXINE 75 MCG TAB PO SCH (06:39)
[2018-12-07] MEDS: CARVEDILOL 6.25 MG TAB PO SCH (06:40)
[2018-12-07 06:52] LABS: Glucose,Whole Blood 84 mg/dL (75-99)
[2018-12-07] MEDS: INSULIN ASPART (NovoLOG) 100 UNIT/ML VIAL SQ SCH ×2 (06:52→12:05)
[2018-12-07] MEDS: INSULIN DETEMIR (LEVEMIR) 100 UNIT/ML SYR SQ SCH (06:53)
[2018-12-07] MEDS: MULTIVITAMINS, THERA 1 EACH TAB PO SCH (08:54)
[2018-12-07] MEDS: MAGNESIUM OXIDE 400 MG TAB PO SCH (08:54)
[2018-12-07] MEDS: ALLOPURINOL 100 MG TAB PO SCH (08:54)
[2018-12-07] MEDS: CITALOPRAM HYDROBROMIDE 20 MG TAB PO SCH (08:54)
[2018-12-07] MEDS: ATORVASTATIN 80 MG TAB PO SCH (08:54)
[2018-12-07] MEDS: ISOSORBIDE MONONITRATE ER 30 MG TAB.ER.24H PO SCH (08:54)
[2018-12-07] MEDS: HEPARIN SODIUM,PORCINE 5,000 UNIT/ML 1 ML VIAL SQ SCH (08:54)
[2018-12-07] MEDS: ASPIRIN 81 MG PO SCH (08:54)
[2018-12-07] MEDS: SODIUM CHLORIDE 0.9% 1,000 ML IV SCH (09:44)
--- NOTE | 2018-12-07 10:12 | P.PN ---
Subjective Patient is seen in follow-up for acute kidney injury. Renal function is improving. Creatinine down to 1.41 today. Blood pressure is controlled. Oral intake is good. No vomiting or diarrhea. Admits to good urine output. Vital signs are stable. General: The patient appeared well nourished and normally developed. HEENT: Head exam is unremarkable. Neck is without jugular venous distension. LUNGS: Lungs are clear to auscultation and percussion. Breath sounds decreased. HEART: Rate and Rhythm are regular. First and second heart sounds normal. No murmurs, rubs or gallops. ABDOMEN: Abdominal exam reveals normal bowel sounds. Non-tender and non- distended. No evidence of peritonitis. EXTREMITITES: No clubbing, cyanosis, or edema. Objective - Vital Signs Vital signs: Vital Signs Temp 97.6 F 12/07/18 08:06 Pulse 75 12/07/18 08:06 Resp 16 12/07/18 08:06 BP 132/69 12/07/18 08:06 Pulse Ox 94 L 12/07/18 08:06 Intake & Output 12/06/18 12/07/18 12/07/18 18:59 06:59 18:59 Intake Total 222 400 Output Total 901 Balance 222 -501 Weight 91.7 kg Intake: Intake, IV Titration 400 Amount Sodium Chloride 0.9% 1, 400 000 ml @ 50 mls/hr IV . Q20H [facility] Rx#:[id number] Oral 222 Output: Urine 900 Stool 1 Other: Voiding Method Toilet # Voids 1 - Labs CBC & Chem 7: 12/06/18 06:08 12/07/18 05:37 Labs: Abnormal Lab Results - Last 24 Hours (Table) 12/06/18 12/06/18 12/06/18 Range/Units 11:47 16:44 20:19 Chloride (98-107) mmol/L BUN (7-17) mg/dL Creatinine (0.52-1.04) mg/dL Glucose (74-99) mg/dL POC Glucose (mg/dL) 167 H 215 H 154 H (75-99) mg/dL 12/07/18 Range/Units 05:37 Chloride 111 H (98-107) mmol/L BUN 51 H (7-17) mg/dL Creatinine 1.41 H (0.52-1.04) mg/dL Glucose 71 L (74-99) mg/dL POC Glucose (mg/dL) (75-99) mg/dL Assessment and Plan Plan: Assessment: 1. Acute kidney injury secondary to ATN secondary to hypotension. Improving. Creatinine peaked at 3.62 this admission and is down to 1.41 today. 2. Chronic kidney disease stage III with baseline creatinine in the range of 1.3-1.5 secondary to nephrosclerosis and diabetic kidney disease. 3. Chronic systolic CHF with ejection fraction of 35-40% with severe mitral regurgitation. Status post cardiac catheterization on 12/02/2018. 4. Insulin-dependent diabetes mellitus. 5. Metabolic acidosis secondary to acute kidney injury. Resolved. Plan: Maintain normal saline at 50 mL an hour. Avoid nephrotoxins. Continue to monitor renal function and urine output. Stable to be discharged home from nephrology standpoint. Follow up outpatient in the next 1-2 weeks.
--- NOTE | 2018-12-07 11:41 | P.DS ---
Providers Date of admission: 12/03/18 13:20 Attending physician: Inna Neumann Consults: 12/02/18 12:40 Consult Physician Routine Consulting Provider: Madai Sawant Consult Reason/Comments: MITRAL VALVE REPLACEMENT, POSSIBLE BYPASS Do you want consulting provider notified?: Already Contacted 12/03/18 11:43 Consult Physician Routine Consulting Provider: Briseida Thornton Consult Reason/Comments: acute on chroinc kidney injury after heart cath Do you want consulting provider notified?: Yes 12/03/18 11:46 Consult Physician Routine Consulting Provider: Fausto Nagy Consult Reason/Comments: post cath Do you want consulting provider notified?: Already Contacted 12/03/18 13:42 Consult Physician Routine Consulting Provider: Inna Neumann Consult Reason/Comments: medical management, admission Do you want consulting provider notified?: Yes Primary care physician: Eduin Moore Hospital Course: Diagnoses: Severe mitral valve regurgitation , severe tricuspid regurgitation cardiomyopathy with moderate to severe LV dysfunction with ejection fraction 35- 40% Acute kidney injury Possible element of contrast-induced nephropathy, related to Cardiac cath . Improved Acute urinary tract infection Chronic kidney disease stage III History of coronary artery disease, status post stent placement in the proxima LAD , 2017 Hypertension Diabetes mellitus Hyperlipidemia Obesity Hospital course: This is a pleasant 67 years old female with past medical history of severe mitral valve regurgitation, coronary artery disease, status post stent placement in the proximal LAD in 2017, hypertension, hyperlipidemia, diabetes mellitus, morbid obesity, chronic kidney disease stage III, pulmonary hypertension. He was recently discharged from the hospital on 11/29/2018 for chest pain and increased creatinine. Patient has been evaluated by window framer and prisoner classification interviewer and then discharged. This time patient underwent cardiac cath on 12/02/2018 showing patent coronary arteries and previous stent with evidence of 70-80% stenosis proximal to the stent. YULIANA revealed severe mitral regurgitation and cardiomyopathy with moderate to severe LV dysfunction. Patient has been evaluated by cardiothoracic surgery team recommended maximizing medical therapy with dental clearance prior to surgery, during which patient can be discharged and follow-up with cardiothoracic team as an outpatient. Her baseline creatinine is 1.2-1.4, went up to 3.6 during this admission, and came down today to 1.4 while she was treated with IV fluids. Urine analysis was suspicious for infection and she was started and ceftriaxone. On the day of discharge patient shows significant interval improvement and she is back to her baseline. She denies chest pain or dyspnea no exertional dyspnea. No abdominal pain or nausea vomiting. No change in urine or bowel habits. No fever. Patient was cleared by cardiology, cardiothoracic surgery and nephrology team for discharge Problems and management plan were discussed with the patient and he verbalized understanding and acceptance Patient was found stable and can be discharged home however he needs follow-up as an outpatient. Patient was instructed to follow up with her PCP within one week as well as with dentist in one week and she verbalized understanding and agreement. Patient agrees with the appointments made for her with cardiology, PCP and cardiothoracic surgery. Gen: patient is a AAOx3, no distress CVS: S1-S2, RRR, no murmur Lungs: B/L CTA, no wheezing Abdomen: soft, no distention, no tenderness, positive bowel sounds Extremity: no leg edema or induration Time spent more than 35 minutes Plan - Discharge Summary Discharge Rx Participant: Yes New Discharge Prescriptions: Continue Aspirin 81 mg PO DAILY #1 chewable Multivitamins, Thera [Multivitamin (formulary)] 1 tab PO DAILY Atorvastatin [Lipitor] 80 mg PO DAILY Isosorbide Mononitrate ER [Imdur] 30 mg PO DAILY Levothyroxine Sodium [Synthroid] 75 mcg PO DAILY Citalopram Hydrobromide [CeleXA] 20 mg PO DAILY tab Meclizine [Antivert] 12.5 mg PO BID PRN PRN Reason: Vertigo Pantoprazole [Protonix] 40 mg PO DAILY Albuterol Inhaler [Ventolin Hfa Inhaler] 2 puff INHALATION RT-Q6H PRN PRN Reason: Shortness Of Breath Allopurinol [Zyloprim] 300 mg PO DAILY amLODIPine [Norvasc] 10 mg PO DAILY Carvedilol [Coreg] 6.25 mg PO BID INSULIN ASPART (NovoLOG) [NovoLOG (formulary)] See Protocol SQ AC-TID Insulin Detemir (Levemir) [Levemir] 30 unit SQ BID Magnesium Oxide [Razo] 500 mg PO DAILY Nitroglycerin Sl Tabs [Nitrostat] 0.4 mg SUBLINGUAL Q5M PRN PRN Reason: Chest Pain Acetaminophen Tab [Tylenol] 650 mg PO Q6HR PRN tab PRN Reason: Fever And/ Or Pain Cefuroxime Axetil [Ceftin] 500 mg PO BID 3 Days #6 tab Discontinued Losartan Potassium 100 mg PO DAILY Potassium Chloride ER [K-Dur 20] 20 meq PO DAILY Torsemide [Demadex] 20 mg PO BID Discharge Medication List Aspirin 81 mg PO DAILY #1 chewable 06/05/15 [Rx] Multivitamins, Thera [Multivitamin (formulary)] 1 tab PO DAILY 07/02/15 [Histor y] Atorvastatin [Lipitor] 80 mg PO DAILY 08/01/15 [History] Isosorbide Mononitrate ER [Imdur] 30 mg PO DAILY 08/01/15 [History] Levothyroxine Sodium [Synthroid] 75 mcg PO DAILY 05/01/16 [History] Citalopram Hydrobromide [CeleXA] 20 mg PO DAILY tab 08/14/16 [Rx] Meclizine [Antivert] 12.5 mg PO BID PRN 11/18/16 [History] Pantoprazole [Protonix] 40 mg PO DAILY 07/25/17 [History] Albuterol Inhaler [Ventolin Hfa Inhaler] 2 puff INHALATION RT-Q6H PRN 11/26/18 [History] Allopurinol [Zyloprim] 300 mg PO DAILY 11/26/18 [History] Carvedilol [Coreg] 6.25 mg PO BID 11/26/18 [History] INSULIN ASPART (NovoLOG) [NovoLOG (formulary)] See Protocol SQ AC-TID 11/26/18 [History] Insulin Detemir (Levemir) [Levemir] 30 unit SQ BID 11/26/18 [History] Magnesium Oxide [Razo] 500 mg PO DAILY 11/26/18 [History] Nitroglycerin Sl Tabs [Nitrostat] 0.4 mg SUBLINGUAL Q5M PRN 11/26/18 [History] amLODIPine [Norvasc] 10 mg PO DAILY 11/26/18 [History] Acetaminophen Tab [Tylenol] 650 mg PO Q6HR PRN tab 11/29/18 [Rx] Cefuroxime Axetil [Ceftin] 500 mg PO BID 3 Days #6 tab 12/07/18 [Rx] Follow up Appointment(s)/Referral(s): Briseida Thornton MD [STAFF PHYSICIAN] - As Needed (Kidney specialist - they will follow your care after your surgery in the hospital.) Madai Sawant MD [STAFF PHYSICIAN] - 12/17/18 (Office will call with an appointment time after checking with the surgeon.) Eduin Moore MD [Primary Care Provider] - 12/10/18 10:30 am (With Jeanne.) Fausto Nagy MD [STAFF PHYSICIAN] - 12/14/18 1:15 pm Patient Instructions/Handouts: Mitral Regurgitation (ED), CABG (Coronary Artery Bypass Graft) (GEN), Mitral Valve Replacement (GEN) Activity/Diet/Wound Care/Special Instructions: pt will be sent home with a cane and a glucometer - s/t weakness and pt broke her glucometer and needs a new one. Needs cane for unsteady gait and glucometer for insulin dependent diabetes mellitus Discharge Disposition: HOME SELF-CARE Care Plan Goals (MU): Please call for dental appointment as soon as you are discharged.
[2018-12-07 11:51] LABS: Glucose,Whole Blood 82 mg/dL (75-99)
[2018-12-07 12:26] VITALS: BP 139/66; PULSE 70; RESP 18; TEMP 98.2
--- NOTE | 2018-12-07 14:38 | P.PN ---
Subjective Progress Note Date: 12/07/18 This is a 67-year-old female admitted to the hospital with acute renal failure secondary to contrast-induced nephropathy. She was seen and examined this morning overall doing much better. Her creatinine today was 1.4. Hemodynamically she was stable. Objective - Vital Signs Vital signs: Vital Signs Temp 98.2 F 12/07/18 12:24 Pulse 70 12/07/18 12:24 Resp 18 12/07/18 12:24 BP 139/66 12/07/18 12:24 Pulse Ox 97 12/07/18 12:24 Intake & Output 12/06/18 12/07/18 12/07/18 18:59 06:59 18:59 Intake Total 222 400 230 Output Total 901 Balance 222 -501 230 Weight 91.7 kg Intake: Intake, IV Titration 400 Amount Sodium Chloride 0.9% 1, 400 000 ml @ 50 mls/hr IV . Q20H EVELIA Rx#:[id number] Oral 222 230 Output: Urine 900 Stool 1 Other: Voiding Method Toilet # Voids 1 - Exam PHYSICAL EXAMINATION: GENERAL: [id number] female in no acute distress at the time of my examination HEENT: Head is atraumatic, normocephalic. Pupils equal, round. Sclera anicteric. Conjunctiva are clear. Mucous membranes of the mouth are moist. Neck is supple. There is no elevated jugular venous pressure. No carotid bruit is heard. HEART EXAMINATION: Heart S1 S2 1 systolic murmur is heard. CHEST EXAMINATION: Lungs are clear to auscultation and precussion. No chest wall tenderness is noted on palpation or with deep breathing. ABDOMEN: Soft, nontender. Bowel sounds are heard. No organomegaly noted. EXTREMITIES: 2+ peripheral pulses with no evidence of peripheral edema and no calf tenderness noted. NEUROLOGIC patient is awake, alert and oriented 3 . . - Labs CBC & Chem 7: 12/06/18 06:08 12/07/18 05:37 Labs: Abnormal Lab Results - Last 24 Hours (Table) 12/06/18 12/06/18 12/07/18 Range/Units 16:44 20:19 05:37 Chloride 111 H (98-107) mmol/L BUN 51 H (7-17) mg/dL Creatinine 1.41 H (0.52-1.04) mg/dL Glucose 71 L (74-99) mg/dL POC Glucose (mg/dL) 215 H 154 H (75-99) mg/dL Assessment and Plan Plan: Assessment and plan #1 acute renal failure secondary to contrast-induced nephropathy #2 severe mitral regurgitation with coronary artery disease #3 hypertension #4 hyperlipidemia Plan Patient will be discharged home today, follow-up appointment with Dr. Wayne in the office. She will also follow-up with Dr. Sawant prior to scheduling her surgery. DNP note has been reviewed, I agree with a documented findings and plan of care. Patient was seen and examined.
--- NOTE | 2018-12-08 11:50 | P.VSCSTY ---
Greater Saphenous Vein Mapping This is bilateral lower extremity greater saphenous vein mapping. Date of service: 12/02/2018 Vein quality and ultrasound appearance: No endoluminal thrombus or wall changes are seen. Vein size groin right : 9 x 8.5 groin left: 7.4 x 6.7 High thigh right: 5.6 x 5.8 high thigh left: 5.3 x 4.7 Mid thigh right: 5.2 x 4.4 mid thigh left: 4.2 x 3.8 Above-knee right: 4.5 x 3.5 above- knee left: 4.6 x 4.2 Below knee right: 3.8 x 3.7 below-knee left: 3.9 x 3.4 Mid calf right: 2.3 x 2.3 mid calf left: 3.1 x 2.1 Ankle right: 2.3 x 2.4 ankle left: 3.1 x 3.0 Impression: Usable bilateral greater saphenous vein.
== END 2018-12-07 13:14 | disposition home or self-care (01) | DRG 683 ==
LOC: CATHCVL 06:48 → 3SCARD 12:42 → CATHCVL 12-03 11:48 → 3SCARD 12-03 13:20
PROVIDERS: ADMIT Hospitalist; ATTEND Hospitalist
PROC: B2111ZZ Fluoroscopy of Multiple Coronary Arteries using Low Osmolar Contrast (ICD-10-PCS; 2018-12-02)
PROC: B24BZZ4 Ultrasonography of Heart with Aorta, Transesophageal (ICD-10-PCS; 2018-12-02)
PROC: B54DZZZ Ultrasonography of Bilateral Lower Extremity Veins (ICD-10-PCS; 2018-12-02)
PROC: 4A023N7 Measurement of Cardiac Sampling and Pressure, Left Heart, Percutaneous Approach (ICD-10-PCS; principal; 2018-12-02 11:00)
DX: N17.0 Acute kidney failure with tubular necrosis (principal); E87.2 Acidosis; I13.0 Hypertensive heart and chronic kidney disease with heart failure and stage 1 through stage 4 chronic kidney disease, or unspecified chronic kidney disease; I50.22 Chronic systolic (congestive) heart failure; N39.0 Urinary tract infection, site not specified; N18.3 Chronic kidney disease, stage 3 (moderate); I95.9 Hypotension, unspecified; E11.22 Type 2 diabetes mellitus with diabetic chronic kidney disease; I27.20 Pulmonary hypertension, unspecified; E66.01 Morbid (severe) obesity due to excess calories; I08.1 Rheumatic disorders of both mitral and tricuspid valves; N14.1 Nephropathy induced by other drugs, medicaments and biological substances; E03.9 Hypothyroidism, unspecified; T50.8X5A Adverse effect of diagnostic agents, initial encounter; G47.30 Sleep apnea, unspecified; I25.10 Atherosclerotic heart disease of native coronary artery without angina pectoris; I25.2 Old myocardial infarction; I25.5 Ischemic cardiomyopathy; K21.9 Gastro-esophageal reflux disease without esophagitis; R19.7 Diarrhea, unspecified; E78.2 Mixed hyperlipidemia; H26.9 Unspecified cataract; Z79.4 Long term (current) use of insulin; Z79.82 Long term (current) use of aspirin; Z79.890 Hormone replacement therapy; Z79.899 Other long term (current) drug therapy; Z95.5 Presence of coronary angioplasty implant and graft; Z68.39 Body mass index [BMI] 39.0-39.9, adult; Z98.42 Cataract extraction status, left eye; Z96.1 Presence of intraocular lens; Z82.49 Family history of ischemic heart disease and other diseases of the circulatory system; Z83.3 Family history of diabetes mellitus
CPT/HCPCS: 80048; 80053; 80061; 80074; 81001; 83036; 83735; 84443; 85025; 85610; 85730; 87070; 87086; 93312; 93320; 93325; 93458; 93880; 93970; 94150

== ENCOUNTER 2019-05-16 22:03 | Observation (INO) | payer MEDICARE ==
[2019-05-16] MEDS ORDERED: IPRATROPIUM-ALBUTEROL 3 ML NEB INHALATION STA (22:23)
--- NOTE | 2019-05-16 22:23 | ED ---
SOB HPI - General Chief Complaint: Shortness of Breath Stated Complaint: MELISA,chest pain,abd pain Time Seen by Provider: 05/16/19 22:11 Source: EMS Mode of arrival: EMS Limitations: no limitations - History of Present Illness Initial Comments: This is a 68-year-old female DF for evaluation patient presents today for evaluation regards to shortness of breath left-sided chest pain history of heart disease and CHF no fever no cough or congestion shortness of breath especially with a deep breath right now. She does have significant history of heart dise ase with no recent inpatient admissions nonsmoker no fever cough or congestion which is shortness of breath MD Complaint: shortness of breath, chest pain (LUQ) -: hour(s) Radiation: left arm Severity: moderate Severity scale (1-10): 6 Quality: aching, throbbing Consistency: constant Improves With: nothing Worsens With: nothing Known History Of: congestive heart failure Context: recent URI Associated Symptoms: chest pain, pain with inspiration, cough - Related Data Home Medications Medication Instructions Recorded Confirmed Multivitamins, Thera [Multivitamin 1 tab PO DAILY 07/02/15 12/03/18 (formulary)] Atorvastatin [Lipitor] 80 mg PO DAILY 08/01/15 12/03/18 Isosorbide Mononitrate ER [Imdur] 30 mg PO DAILY 08/01/15 12/03/18 Levothyroxine Sodium [Synthroid] 75 mcg PO DAILY 05/01/16 12/03/18 Meclizine [Antivert] 12.5 mg PO BID PRN 11/18/16 12/03/18 Pantoprazole [Protonix] 40 mg PO DAILY 07/25/17 12/03/18 Albuterol Inhaler [Ventolin Hfa 2 puff INHALATION RT-Q6H PRN 11/26/18 12/03/18 Inhaler] Allopurinol [Zyloprim] 300 mg PO DAILY 11/26/18 12/03/18 Carvedilol [Coreg] 6.25 mg PO BID 11/26/18 12/03/18 INSULIN ASPART (NovoLOG) [NovoLOG See Protocol SQ AC-TID 11/26/18 12/03/18 (formulary)] Insulin Detemir (Levemir) [Levemir] 30 unit SQ BID 11/26/18 12/03/18 Magnesium Oxide [Razo] 500 mg PO DAILY 11/26/18 12/03/18 Nitroglycerin Sl Tabs [Nitrostat] 0.4 mg SUBLINGUAL Q5M PRN 11/26/18 12/03/18 amLODIPine [Norvasc] 10 mg PO DAILY 11/26/18 12/03/18 Previous Rx's Medication Instructions Recorded Aspirin 81 mg PO DAILY #1 chewable 06/05/15 Citalopram Hydrobromide [CeleXA] 20 mg PO DAILY tab 08/14/16 Acetaminophen Tab [Tylenol] 650 mg PO Q6HR PRN tab 11/29/18 Cefuroxime Axetil [Ceftin] 500 mg PO BID 3 Days #6 tab 12/07/18 Allergies Allergy/AdvReac Type Severity Reaction Status Date / Time No Known Allergies Allergy Verified 05/16/19 22:12 Review of Systems ROS Statement: Those systems with pertinent positive or pertinent negative responses have been documented in the HPI. ROS Other: All systems not noted in ROS Statement are negative. Past Medical History Past Medical History: Coronary Artery Disease (CAD), Chest Pain / Angina, Heart Failure, Diabetes Mellitus, Eye Disorder, Hyperlipidemia, Hypertension, Myocar dial Infarction (NM), Renal Disease, Sleep Apnea/CPAP/BIPAP, Thyroid Disorder Additional Past Medical History / Comment(s): Right cataract. CAD with Stent to Proximal LAD 03/31/2015. Not using CPAP, Recent admit w/ CP, UTI. Cardiac stent to proximal LAD 2016 Last Myocardial Infarction Date:: 03/31/2015 History of Any Multi-Drug Resistant Organisms: None Reported Past Surgical History: Breast Surgery, Heart Catheterization, Heart Catheterization With Stent Additional Past Surgical History / Comment(s): Left breast bx-neg, buttocks sx- pt stated:" they told me I had gangrene and had sx to remove", lt cataract, Heart Cath 11/18/16. Past Anesthesia/Blood Transfusion Reactions: No Reported Reaction Date of Last Stent Placement:: 2014 Past Psychological History: No Psychological Hx Reported Smoking Status: Never smoker Past Alcohol Use History: None Reported Past Drug Use History: None Reported - Past Family History Father Family Medical History: Unable to Obtain Additional Family Medical History / Comment(s): Father from motor vehicle accident Mother Family Medical History: Diabetes Mellitus, Hypertension General Exam Limitations: no limitations General appearance: alert, in no apparent distress Head exam: Present: atraumatic, normocephalic, normal inspection Eye exam: Present: normal appearance, PERRL, EOMI. Absent: scleral icterus, conjunctival injection, periorbital swelling ENT exam: Present: normal exam, mucous membranes moist Neck exam: Present: normal inspection. Absent: tenderness, meningismus, lymphadenopathy Respiratory exam: Present: normal lung sounds bilaterally. Absent: respiratory distress, wheezes, rales, rhonchi, stridor Cardiovascular Exam: Present: regular rate, normal rhythm, normal heart sounds. Absent: systolic murmur, diastolic murmur, rubs, gallop, clicks GI/Abdominal exam: Present: soft, normal bowel sounds. Absent: distended, tenderness, guarding, rebound, rigid Extremities exam: Present: normal inspection, full ROM, normal capillary refill. Absent: tenderness, pedal edema, joint swelling, calf tenderness Back exam: Present: normal inspection Neurological exam: Present: alert, oriented X3, CN II-XII intact Psychiatric exam: Present: normal affect, normal mood Skin exam: Present: warm, dry, intact, normal color. Absent: rash Course Vital Signs 05/16/19 05/16/19 22:09 22:56 Temperature 98.8 F Pulse Rate 87 76 Respiratory 24 Rate Blood Pressure 178/90 O2 Sat by Pulse 93 L Oximetry - Reevaluation(s) Reevaluation #1: 05/16/19 23:38 Medical records reviewed Reevaluation #2: 05/16/19 23:38 No clinical improvement here in the ER - Consultations Consultation #1: Spoke with , she was okay for admission Medical Decision Making - Medical Decision Making 68 female to the ER for evaluation of chest pain shortness of breath, we will a dmit this patient for CHF exacerbation continued monitoring of cardiac enzymes - Lab Data Result diagrams: 05/16/19 22:10 05/16/19 22:10 Lab Results 05/16/19 05/16/19 05/16/19 Range/Units 22:10 22:10 22:10 WBC 9.8 (3.8-10.6) k/uL RBC 3.33 L (3.80-5.40) m/uL Hgb 9.9 L (11.4-16.0) gm/dL Hct 31.8 L (34.0-46.0) % MCV 95.5 (80.0-100.0) fL MCH 29.7 (25.0-35.0) pg MCHC 31.1 (31.0-37.0) g/dL RDW 15.6 H (11.5-15.5) % Plt Count 260 (150-450) k/uL Neutrophils % 80 % Lymphocytes % 14 % Monocytes % 5 % Eosinophils % 2 % Basophils % 0 % Neutrophils # 7.8 H (1.3-7.7) k/uL Lymphocytes # 1.3 (1.0-4.8) k/uL Monocytes # 0.5 (0-1.0) k/uL Eosinophils # 0.2 (0-0.7) k/uL Basophils # 0.0 (0-0.2) k/uL Hypochromasia Slight PT (9.0-12.0) sec INR (<1.2) APTT (22.0-30.0) sec Sodium 141 (137-145) mmol/L Potassium 4.3 (3.5-5.1) mmol/L Chloride 109 H (98-107) mmol/L Carbon Dioxide 24 (22-30) mmol/L Anion Gap 8 mmol/L BUN 24 H (7-17) mg/dL Creatinine 1.48 H (0.52-1.04) mg/dL Est GFR (CKD-EPI)AfAm 41 (>60 ml/min/1.73 sqM) Est GFR (CKD-EPI)NonAf 36 (>60 ml/min/1.73 sqM) Glucose 192 H (74-99) mg/dL Plasma Lactic Acid Tye 1.3 (0.7-2.0) mmol/L Calcium 8.8 (8.4-10.2) mg/dL Magnesium 2.1 (1.6-2.3) mg/dL Total Bilirubin 0.9 (0.2-1.3) mg/dL AST 17 (14-36) U/L ALT 11 (4-34) U/L Alkaline Phosphatase 88 (38-126) U/L Troponin I (0.000-0.034) ng/mL NT-Pro-B Natriuret Pep pg/mL Total Protein 6.7 (6.3-8.2) g/dL Albumin 3.7 (3.5-5.0) g/dL 05/16/19 05/16/19 05/16/19 Range/Units 22:10 22:10 22:10 WBC (3.8-10.6) k/uL RBC (3.80-5.40) m/uL Hgb (11.4-16.0) gm/dL Hct (34.0-46.0) % MCV (80.0-100.0) fL MCH (25.0-35.0) pg MCHC (31.0-37.0) g/dL RDW (11.5-15.5) % Plt Count (150-450) k/uL Neutrophils % % Lymphocytes % % Monocytes % % Eosinophils % % Basophils % % Neutrophils # (1.3-7.7) k/uL Lymphocytes # (1.0-4.8) k/uL Monocytes # (0-1.0) k/uL Eosinophils # (0-0.7) k/uL Basophils # (0-0.2) k/uL Hypochromasia PT 10.7 (9.0-12.0) sec INR 1.0 (<1.2) APTT 24.4 (22.0-30.0) sec Sodium (137-145) mmol/L Potassium (3.5-5.1) mmol/L Chloride (98-107) mmol/L Carbon Dioxide (22-30) mmol/L Anion Gap mmol/L BUN (7-17) mg/dL Creatinine (0.52-1.04) mg/dL Est GFR (CKD-EPI)AfAm (>60 ml/min/1.73 sqM) Est GFR (CKD-EPI)NonAf (>60 ml/min/1.73 sqM) Glucose (74-99) mg/dL Plasma Lactic Acid Tye (0.7-2.0) mmol/L Calcium (8.4-10.2) mg/dL Magnesium (1.6-2.3) mg/dL Total Bilirubin (0.2-1.3) mg/dL AST (14-36) U/L ALT (4-34) U/L Alkaline Phosphatase (38-126) U/L Troponin I <0.012 (0.000-0.034) ng/mL NT-Pro-B Natriuret Pep 3670 pg/mL Total Protein (6.3-8.2) g/dL Albumin (3.5-5.0) g/dL - EKG Data -: EKG Interpreted by Me (EKG shows sinus a rate of 82, SC 134, QRS 174, QTc 523) - Radiology Data Radiology results: report reviewed (Chest x-rays positive for CHF), image rev iewed Disposition Clinical Impression: Congestive heart failure, Weakness, Presence of stent in LAD coronary artery, Chest pain Disposition: ADMITTED IP TO THIS HOSP Condition: Fair Is patient prescribed a controlled substance at d/c from ED?: No Referrals: Eduin Moore MD [Primary Care Provider] - 1-2 days
--- NOTE | 2019-05-16 22:37 | XR ---
EXAMINATION TYPE: XR chest 2V DATE OF EXAM: 05/16/2019 COMPARISON: 11/26/2018 HISTORY: Difficulty breathing TECHNIQUE: 2 views FINDINGS: Heart is enlarged. There is mild pulmonary vascular congestion. There are chest leads. Ther e is some blunting of the costophrenic angles. Bony thorax is intact. IMPRESSION: Small pleural effusions. Cardiomegaly. There is probably mild heart failure that is new c ompared to last exam.
[2019-05-16 22:47] LABS: Partial Thromboplastin Time 24.4 sec (22.0-30.0); Prothrombin Time 10.7 sec (9.0-12.0)
[2019-05-16 22:49] LABS: Potassium 4.3 mmol/L (3.5-5.1)
[2019-05-16 22:50] LABS: Albumin 3.7 g/dL (3.5-5.0); Calcium 8.8 mg/dL (8.4-10.2); Magnesium 2.1 mg/dL (1.6-2.3); Total Bilirubin 0.9 mg/dL (0.2-1.3); Total Protein 6.7 g/dL (6.3-8.2)
[2019-05-16 22:58] LABS: Basophils % (A) 0 %; Eosinophils # (A) 0.2 k/uL (0-0.7); Eosinophils % (A) 2 %; HCT 31.8 % (34.0-46.0); HGB 9.9 gm/dL (11.4-16.0); Hypochromasia Slight; Lymphocytes # (A) 1.3 k/uL (1.0-4.8); Lymphocytes % (A) 14 %; MCH 29.7 pg (25.0-35.0); MCHC 31.1 g/dL (31.0-37.0); MCV 95.5 fL (80.0-100.0); Mean Platelet Volume 7.5; Monocytes # (A) 0.5 k/uL (0-1.0); Monocytes % (A) 5 %; Neutrophils # (A) 7.8 k/uL (1.3-7.7); Neutrophils % (A) 80 %; Platelet Count 260 k/uL (150-450); RBC 3.33 m/uL (3.80-5.40); RDW 15.6 % (11.5-15.5); WBC 9.8 k/uL (3.8-10.6)
[2019-05-16] MEDS ORDERED: IPRATROPIUM-ALBUTEROL 3 ML NEB INHALATION PRN (23:35)
[2019-05-17] MEDS: FUROSEMIDE 10 MG/ML 4 ML VIAL IV SCH ×3 (00:08→23:17)
[2019-05-17] MEDS ORDERED: MORPHINE SULFATE 4 MG/ML SYRINGE IVP PRN (00:32)
[2019-05-17] MEDS ORDERED: MORPHINE SULFATE 4 MG/ML SYRINGE IVP STA (00:32)
[2019-05-17] MEDS: ASPIRIN 81 MG PO SCH (09:36)
[2019-05-17] MEDS: CARVEDILOL 6.25 MG TAB PO SCH ×2 (09:37→18:15)
[2019-05-17] MEDS: ISOSORBIDE MONONITRATE ER 30 MG TAB.ER.24H PO SCH (09:37)
[2019-05-17] MEDS: amLODIPine 10 MG TAB PO SCH (09:37)
[2019-05-17] MEDS ORDERED: ACETAMINOPHEN TAB 325 MG TAB PO PRN (10:19)
[2019-05-17] MEDS ORDERED: NITROGLYCERIN SL TABS 0.4 MG TAB SUBLINGUAL PRN (10:19)
[2019-05-17] MEDS ORDERED: MECLIZINE 12.5 MG TAB PO PRN (10:19)
[2019-05-17 10:48] LABS: Glucose,Whole Blood 170 mg/dL (75-99)
[2019-05-17] MEDS: MAGNESIUM OXIDE 400 MG TAB PO SCH (10:57)
[2019-05-17] MEDS: PANTOPRAZOLE 40 MG TABLET PO SCH (10:57)
[2019-05-17] MEDS: MULTIVITAMINS, THERA 1 EACH TAB PO SCH (10:57)
[2019-05-17] MEDS: ATORVASTATIN 80 MG TAB PO SCH (10:57)
[2019-05-17] MEDS: ENOXAPARIN 40 MG/0.4 ML SYRINGE SQ SCH (10:57)
[2019-05-17] MEDS: INSULIN ASPART (NovoLOG) 100 UNIT/ML VIAL SQ SCH ×3 (10:58→21:30)
[2019-05-17] MEDS: INSULIN DETEMIR (LEVEMIR) 100 UNIT/ML SYR SQ SCH ×2 (11:12→21:51)
[2019-05-17] MEDS: CITALOPRAM HYDROBROMIDE 20 MG TAB PO SCH (11:14)
[2019-05-17] MEDS: ALLOPURINOL 300 MG TAB PO SCH (11:14)
[2019-05-17 12:46] LABS: Glucose,Whole Blood 150 mg/dL (75-99)
[2019-05-17] MEDS: LEVOTHYROXINE 75 MCG TAB PO SCH (13:36)
[2019-05-17 13:42] VITALS: BMI 35.2
--- NOTE | 2019-05-17 13:53 | P.CRDCN ---
History of Present Illness History of present illness: HISTORY OF PRESENTING ILLNESS This is a pleasant 68-year-old female past medical history significant for coronary artery disease with a previous stent placement to the LAD in 2014 and 70-80% proximal disease noted on recent catheterization from November 2018, valvular heart disease with severe mitral and tricuspid regurgitation, hypertension, dyslipidemia, ischemic cardiomyopathy, chronic systolic heart failure, chronic kidney disease and diabetes mellitus. She follows in the office with Dr. Nagy. We have been asked to see in consultation for congestive heart failure. She states for the previous 5 days she has been experiencing a discomfort in the left abdominal region associated with shortness of breath. She states the pain as well as the breathing or exacerbated by activity or exertion. Not associated with oral intake. She does have some associated dizziness described as the room spinning. She does take Antivert regularly. Denies palpitations, nausea, vomiting or diaphoresis. She has been initiated on IV Lasix in the emergency department since admission and does state that her breathing has improved. In November she underwent cardiac catheterization and YULIANA revealing moderate to severe mitral regurgitation and 70-80% proximal disease of the LAD. At that time she was recommended for cardio thoracic evaluation for mitral valve repair and the REYES to LAD bypass. She was seen in consultation by of surgery according to the family and was told she needs to have some dental work done prior to surgery. Per the patient she is unable to afford some dental work and therefore has not had surgery as of yet. DIAGNOSTICS EKG reveals left bundle branch block, chronic. Chest xray blunting of the costophrenic angles, mild pulmonary vascular congestion. Laboratory reviewed, WBC 9.8, hemoglobin 9.9, platelets 260, sodium 141, potassium 4.3, creatinine 1.48 with a GFR of 36, magnesium 2.1, cardiac enzymes negative 3 and NT proBNP 3670. Current cardiac medications include aspirin 81 mg daily, atorvastatin 80 mg daily, carvedilol 6.25 mg twice a day, Imdur 30 mg daily and amlodipine 10 mg daily. Most recent cardiac catheterization performed November 2018 revealed a 70-80% lesion of the proximal LAD, patent and the previously stented segment, RCA free of significant disease, circumflex free of significant disease and left main free of significant disease. At the same time in November she underwent a YULIANA revealing severe mitral regurgitation secondary to dilated mitral annulus, cardiomyopathy with EF 35-40% and moderate to severe tricuspid regurgitation. REVIEW OF SYSTEMS At the time of my exam: CONSTITUTIONAL: Denies fever or chills. CARDIOVASCULAR: Denies chest pain, shortness of breath, orthopnea, PND or palpitations. RESPIRATORY: Denies cough. GASTROINTESTINAL: Denies abdominal pain, diarrhea, constipation, nausea or vomiting. MUSCULOSKELETAL: Denies myalgias. NEUROLOGIC: Denies numbness, tingling or weakness. ENDOCRINE: Denies fatigue, weight change, polydipsia or polyurina. GENITOURINARY: Denies burning, hematuria or urgency with micturation. HEMATOLOGIC: Denies history of anemia or bleeding. PHYSICAL EXAMINATION Blood pressure 151/71 heart rate 78 afebrile and maintaining oxygen saturation on room air. CONSTITUTIONAL: No apparent distress. HEENT: Head is normocephalic. Pupils are equal, round. Sclerae anicteric. Mucous membranes of the mouth are moist. No JVD. No carotid bruit. CHEST EXAMINATION: Lungs are clear to auscultation. No chest wall tenderness is noted on palpation or with deep breathing. HEART EXAMINATION: Regular rate and rhythm. S1, S2 heard. Systolic ejection murmur at the left sternal border and apex, no gallops or rub. ABDOMEN: Soft, nontender. Positive bowel sounds. EXTREMITIES: 2+ peripheral pulses, no lower extremity edema and no calf tenderness. NEUROLOGIC EXAMINATION: Patient is awake, alert and oriented x3. ASSESSMENT Acute on chronic systolic heart failure, ejection fraction 35-40% Valvular heart disease with moderate to severe mitral regurgitation awaiting surgical repair Coronary artery disease status post PCI with a known 70-80% proximal LAD lesion Hypertension Dyslipidemia Diabetes mellitus Ischemic cardiomyopathy Chronic kidney disease PLAN Continue to diurese with lasix at current dose. Document accurate intake and output along with daily weights. Follow renal function and electrolytes in the morning. We will also ask the social work specialist to meet with her and possibly assist with resources for getting her teeth repaired so she can have heart surgery as recommended by Dr. Sawant. Further recommendations to follow based on clinical course. Thank you kindly for this consultation. Nurse Practitioner note has been reviewed, I agree with a documented findings and plan of care. Patient was seen and examined. Past Medical History Past Medical History: Coronary Artery Disease (CAD), Chest Pain / Angina, Heart Failure, Diabetes Mellitus, Eye Disorder, Hyperlipidemia, Hypertension, Myocardial Infarction ([place]), Renal Disease, Sleep Apnea/CPAP/BIPAP, Thyroid Disorder Additional Past Medical History / Comment(s): Right cataract. CAD with Stent to Proximal LAD 03/31/2015. Not using CPAP, Recent admit w/ CP, UTI. Cardiac stent to proximal LAD 2016 Last Myocardial Infarction Date:: 03/31/2015 History of Any Multi-Drug Resistant Organisms: None Reported Past Surgical History: Breast Surgery, Heart Catheterization, Heart Catheterization With Stent Additional Past Surgical History / Comment(s): Left breast bx-neg, buttocks sx- pt stated:" they told me I had gangrene and had sx to remove", lt cataract, Heart Cath 11/18/16. Past Anesthesia/Blood Transfusion Reactions: No Reported Reaction Date of Last Stent Placement:: 2014 Past Psychological History: No Psychological Hx Reported Smoking Status: Never smoker Past Alcohol Use History: None Reported Past Drug Use History: None Reported - Past Family History Father Family Medical History: Unable to Obtain Additional Family Medical History / Comment(s): Father from motor vehicle accident Mother Family Medical History: Diabetes Mellitus, Hypertension Medications and Allergies Home Medications Medication Instructions Recorded Confirmed Type Aspirin 81 mg PO DAILY #1 chewable 06/05/15 05/17/19 Rx Multivitamins, Thera [Multivitamin 1 tab PO DAILY 07/02/15 05/17/19 History (formulary)] Atorvastatin [Lipitor] 80 mg PO DAILY 08/01/15 05/17/19 History Isosorbide Mononitrate ER [Imdur] 30 mg PO DAILY 08/01/15 05/17/19 History Levothyroxine Sodium [Synthroid] 75 mcg PO DAILY 05/01/16 05/17/19 History Citalopram Hydrobromide [CeleXA] 20 mg PO DAILY tab 08/14/16 05/17/19 Rx Meclizine [Antivert] 12.5 mg PO BID PRN 11/18/16 05/17/19 History Pantoprazole [Protonix] 40 mg PO DAILY 07/25/17 05/17/19 History Allopurinol [Zyloprim] 300 mg PO DAILY 11/26/18 05/17/19 History Carvedilol [Coreg] 6.25 mg PO BID 11/26/18 05/17/19 History INSULIN ASPART (NovoLOG) [NovoLOG See Protocol SQ AC-TID 11/26/18 05/17/19 History (formulary)] Insulin Detemir (Levemir) [Levemir] 30 unit SQ BID 11/26/18 05/17/19 History Magnesium Oxide [Razo] 500 mg PO DAILY 11/26/18 05/17/19 History Nitroglycerin Sl Tabs [Nitrostat] 0.4 mg SUBLINGUAL Q5M PRN 11/26/18 05/17/19 History amLODIPine [Norvasc] 10 mg PO DAILY 11/26/18 05/17/19 History Acetaminophen Tab [Tylenol] 650 mg PO Q6HR PRN tab 11/29/18 05/17/19 Rx Allergies Allergy/AdvReac Type Severity Reaction Status Date / Time No Known Allergies Allergy Verified 05/17/19 08:00 Physical Exam Vitals: Vital Signs Temp Pulse Resp BP Pulse Ox 05/17/19 07:31 78 05/17/19 07:20 65 16 151/71 98 05/17/19 07:15 75 05/17/19 06:28 61 18 160/75 99 05/17/19 00:10 83 20 161/83 95 05/16/19 22:56 76 05/16/19 22:09 98.8 F 87 24 178/90 93 L Intake and Output 05/16/19 05/17/19 05/17/19 22:59 06:59 14:59 Other: Weight 96.162 kg Results 05/16/19 22:10 05/16/19 22:10 Cardiac Enzymes 05/16/19 05/16/19 05/17/19 Range/Units 22:10 22:10 05:30 AST 17 (14-36) U/L Troponin I <0.012 <0.012 (0.000-0.034) ng/mL Coagulation 05/16/19 Range/Units 22:10 PT 10.7 (9.0-12.0) sec APTT 24.4 (22.0-30.0) sec CBC 05/16/19 Range/Units 22:10 WBC 9.8 (3.8-10.6) k/uL RBC 3.33 L (3.80-5.40) m/uL Hgb 9.9 L (11.4-16.0) gm/dL Hct 31.8 L (34.0-46.0) % Plt Count 260 (150-450) k/uL Comprehensive Metabolic Panel 05/16/19 Range/Units 22:10 Sodium 141 (137-145) mmol/L Potassium 4.3 (3.5-5.1) mmol/L Chloride 109 H (98-107) mmol/L Carbon Dioxide 24 (22-30) mmol/L BUN 24 H (7-17) mg/dL Creatinine 1.48 H (0.52-1.04) mg/dL Glucose 192 H (74-99) mg/dL Calcium 8.8 (8.4-10.2) mg/dL AST 17 (14-36) U/L ALT 11 (4-34) U/L Alkaline Phosphatase 88 (38-126) U/L Total Protein 6.7 (6.3-8.2) g/dL Albumin 3.7 (3.5-5.0) g/dL Current Medications Generic Name Dose Route Start Last Admin Trade Name Freq PRN Reason Stop Dose Admin Albuterol/Ipratropium 3 ml 05/16/19 23:35 05/17/19 07:09 Duoneb 0.5 Mg-3 Mg/3 Ml Soln INHALATION 3 ml RT-QID PRN Administration Shortness Of Breath Or Wheezing Amlodipine Besylate 10 mg 05/17/19 09:15 Norvasc PO DAILY [facility] Aspirin 81 mg 05/17/19 09:00 Aspirin PO DAILY [facility] Carvedilol 6.25 mg 05/17/19 09:15 Coreg PO AC-BID EVELIA Furosemide 40 mg 05/16/19 23:45 05/17/19 00:08 Lasix IV 40 mg Q12H EVELIA Administration Isosorbide Mononitrate 30 mg 05/17/19 09:15 Imdur PO DAILY [facility] Morphine Sulfate 4 mg 05/17/19 00:32 Morphine Sulfate (Inj) IVP Q4HR PRN Pain Intake and Output 05/16/19 05/17/19 05/17/19 22:59 06:59 14:59 Other: Weight 96.162 kg 05/16/19 22:10 05/16/19 22:10
[2019-05-17 16:44] LABS: Glucose,Whole Blood 120 mg/dL (75-99)
--- NOTE | 2019-05-17 17:18 | P.HPIM ---
History of Present Illness H&P Date: 05/17/19 Chief Complaint: Short of breath History of presenting complaint: This is a pleasant 68-year-old patient of Dr. Moore. Chronic stable medical conditions include coronary artery disease with stent, diabetes, hypertension, hyperlipidemia, hypothyroid, obstructive sleep apnea does not use CPAP. Last intervention was stent to LAD in 2016. Patient now presents 1 week of in creasing shortness of breath swelling of the leg. Also's chest pain across the upper chest. No radiation and neck around. Does feel tired rundown. X-ray had shown CHF in the ER. Given IV Lasix to which she feels a bit better. Some orthopnea. at the bedside. No fever no chills. No cough. Review of systems: GEN.: Tired EYES: None HEENT: None NECK: None RESPIRATORY: As above] CARDIOVASCULAR: As above GASTROINTESTINAL: None GENITOURINARY: None MUSCULOSKELETAL: None LYMPHATICS: None HEMATOLOGICAL: None PSYCHIATRY: None NEUROLOGICAL: None Past medical history to include: Coronary artery disease with stent, CHF, diabetes, hyperlipidemia, hypertension, obstructive sleep apnea does not use CPAP, hypothyroid, Social history: . No smoking or alcohol Physical examination: VITAL SIGNS: 98.8, 87, 24, 178/90, 93% on room air GENERAL: [BMI 35.3, sitting up, short of breath-nasal cannula. EYES: Pupils equal. Conjunctiva normal. HEENT: External appearance of nose and ears normal, oral cavity grossly normal. NECK: JVD possibly raise; masses not palpable. HEART: First and second heart sounds are normal; no edema. LUNGS: Respiratory rate increased; decreased breath sounds. ABDOMEN: Soft, nontender, liver spleen not palpable, no masses palpable. PSYCH: [Alert and oriented x3; mood and affect tired l. NEUROLOGICAL: Cranial nerves grossly intact; no facial asymmetry, power and sensation grossly intact. LYMPHATICS: No lymph nodes palpable in the axilla and neck INVESTIGATIONS, reviewed in the clinical context: White count 9.8 hemoglobin 9.9 potassium 4.3 bun 44 creatinine 1.48 Labs from November 2018-bun 51 creatinine 1.41 EKG tracing personally reviewed by me-normal sinus rhythm with intraventricular block Chest x-ray film personally reviewed by me-cardiomegaly, venous prominence YULIANA-November 2018-moderate to severe tricuspid regurgitation, EF 35-40%, severe mitral regurgitation Assessment: --Acute on chronic congestive heart failure exacerbation from systolic dysfunction EF 35-40% -Moderate to severe tricuspid regurgitation, severe mitral regurgitation, nontraumatic -Coronary artery with stent -Diabetes mellitus type 2 -Essential hypertension with urgency -Hyperlipidemia -Hypothyroid -Obstructive status sleep apnea does not use CPAP -Obesity BMI 35.3 Plan: Home medications resumed. Given IV Lasix. I's and O's be closely managed. A ccu-Cheks will be followed. Care was discussed the patient and . Questions were answered. Lovenox for DVT prophylaxis. Past Medical History Past Medical History: Coronary Artery Disease (CAD), Chest Pain / Angina, Heart Failure, Diabetes Mellitus, Eye Disorder, Hyperlipidemia, Hypertension, Myocardial Infarction ([place]), Renal Disease, Sleep Apnea/CPAP/BIPAP, Thyroid Disorder Additional Past Medical History / Comment(s): Right cataract. CAD with Stent to Proximal LAD 03/31/2015. Not using CPAP, Recent admit w/ CP, UTI. Cardiac stent to proximal LAD 2016 Last Myocardial Infarction Date:: 03/31/2015 History of Any Multi-Drug Resistant Organisms: None Reported Past Surgical History: Breast Surgery, Heart Catheterization, Heart Catheterization With Stent Additional Past Surgical History / Comment(s): Left breast bx-neg, buttocks sx- pt stated:" they told me I had gangrene and had sx to remove", lt cataract, Heart Cath 11/18/16. Past Anesthesia/Blood Transfusion Reactions: No Reported Reaction Date of Last Stent Placement:: 2014 Past Psychological History: No Psychological Hx Reported Smoking Status: Never smoker Past Alcohol Use History: None Reported Past Drug Use History: None Reported - Past Family History Father Family Medical History: Unable to Obtain Additional Family Medical History / Comment(s): Father from motor vehicle accident Mother Family Medical History: Diabetes Mellitus, Hypertension Medications and Allergies Home Medications Medication Instructions Recorded Confirmed Type Aspirin 81 mg PO DAILY #1 chewable 06/05/15 05/17/19 Rx Multivitamins, Thera [Multivitamin 1 tab PO DAILY 07/02/15 05/17/19 History (formulary)] Atorvastatin [Lipitor] 80 mg PO DAILY 08/01/15 05/17/19 History Isosorbide Mononitrate ER [Imdur] 30 mg PO DAILY 08/01/15 05/17/19 History Levothyroxine Sodium [Synthroid] 75 mcg PO DAILY 05/01/16 05/17/19 History Citalopram Hydrobromide [CeleXA] 20 mg PO DAILY tab 08/14/16 05/17/19 Rx Meclizine [Antivert] 12.5 mg PO BID PRN 11/18/16 05/17/19 History Pantoprazole [Protonix] 40 mg PO DAILY 07/25/17 05/17/19 History Allopurinol [Zyloprim] 300 mg PO DAILY 11/26/18 05/17/19 History Carvedilol [Coreg] 6.25 mg PO BID 11/26/18 05/17/19 History INSULIN ASPART (NovoLOG) [NovoLOG See Protocol SQ AC-TID 11/26/18 05/17/19 History (formulary)] Insulin Detemir (Levemir) [Levemir] 30 unit SQ BID 11/26/18 05/17/19 History Magnesium Oxide [Razo] 500 mg PO DAILY 11/26/18 05/17/19 History Nitroglycerin Sl Tabs [Nitrostat] 0.4 mg SUBLINGUAL Q5M PRN 11/26/18 05/17/19 History amLODIPine [Norvasc] 10 mg PO DAILY 11/26/18 05/17/19 History Acetaminophen Tab [Tylenol] 650 mg PO Q6HR PRN tab 11/29/18 05/17/19 Rx Allergies Allergy/AdvReac Type Severity Reaction Status Date / Time No Known Allergies Allergy Verified 05/17/19 08:00 Physical Exam Vitals: Vital Signs Temp Pulse Resp BP Pulse Ox 05/17/19 07:31 78 05/17/19 07:20 65 16 151/71 98 05/17/19 07:15 75 05/17/19 06:28 61 18 160/75 99 05/17/19 00:10 83 20 161/83 95 05/16/19 22:56 76 05/16/19 22:09 98.8 F 87 24 178/90 93 L Intake and Output 05/16/19 05/17/19 05/17/19 22:59 06:59 14:59 Other: Weight 96.162 kg Results CBC & Chem 7: 05/16/19 22:10 05/16/19 22:10 Labs: Abnormal Lab Results - Last 24 Hours (Table) 05/16/19 05/16/19 Range/Units 22:10 22:10 RBC 3.33 L (3.80-5.40) m/uL Hgb 9.9 L (11.4-16.0) gm/dL Hct 31.8 L (34.0-46.0) % RDW 15.6 H (11.5-15.5) % Neutrophils # 7.8 H (1.3-7.7) k/uL Chloride 109 H (98-107) mmol/L BUN 24 H (7-17) mg/dL Creatinine 1.48 H (0.52-1.04) mg/dL Glucose 192 H (74-99) mg/dL
[2019-05-17 20:39] LABS: Glucose,Whole Blood 101 mg/dL (75-99)
[2019-05-18] MEDS: LEVOTHYROXINE 75 MCG TAB PO SCH (04:48)
[2019-05-18 06:53] LABS: Glucose,Whole Blood 53 mg/dL (75-99)
[2019-05-18 07:08] LABS: Glucose,Whole Blood 54 mg/dL (75-99)
[2019-05-18] MEDS: INSULIN DETEMIR (LEVEMIR) 100 UNIT/ML SYR SQ SCH (07:23)
[2019-05-18] MEDS: INSULIN ASPART (NovoLOG) 100 UNIT/ML VIAL SQ SCH ×2 (07:23→13:03)
[2019-05-18 07:24] LABS: Glucose,Whole Blood 60 mg/dL (75-99)
[2019-05-18 07:42] LABS: Calcium 8.5 mg/dL (8.4-10.2); Potassium 4.6 mmol/L (3.5-5.1)
[2019-05-18 07:43] LABS: Glucose,Whole Blood 82 mg/dL (75-99)
[2019-05-18] MEDS ORDERED: FUROSEMIDE 40 MG TAB PO SCH (09:00)
[2019-05-18] MEDS: ENOXAPARIN 40 MG/0.4 ML SYRINGE SQ SCH (09:42)
[2019-05-18] MEDS: CARVEDILOL 6.25 MG TAB PO SCH (09:43)
[2019-05-18] MEDS: PANTOPRAZOLE 40 MG TABLET PO SCH (09:43)
[2019-05-18] MEDS: ISOSORBIDE MONONITRATE ER 30 MG TAB.ER.24H PO SCH (09:43)
[2019-05-18] MEDS: ASPIRIN 81 MG PO SCH (09:43)
[2019-05-18] MEDS: amLODIPine 10 MG TAB PO SCH (09:43)
[2019-05-18] MEDS: ATORVASTATIN 80 MG TAB PO SCH (09:43)
[2019-05-18] MEDS: CITALOPRAM HYDROBROMIDE 20 MG TAB PO SCH (09:43)
[2019-05-18] MEDS: MAGNESIUM OXIDE 400 MG TAB PO SCH (09:43)
[2019-05-18] MEDS: MULTIVITAMINS, THERA 1 EACH TAB PO SCH (09:43)
[2019-05-18] MEDS: ALLOPURINOL 300 MG TAB PO SCH (09:44)
--- NOTE | 2019-05-18 10:46 | PN ---
PROGRESS NOTE Mrs. Mcmillan has history of mitral regurgitation and LAD disease. She has ischemic cardiomyopathy, is being considered for mitral valve repair and single-vessel graft. Since receiving some diuretics yesterday, she feels well. Denies chest pain. Vitals are stable. JVD is 1 cm. No carotid bruit. S1, S2 heard normally. Holosystolic murmur at the apex is audible, soft. Lungs are clear. Abdomen is soft. Lower extremities reveal diminished pulses. No edema. Central nervous system is normal. Plan is to switch her from IV to oral Lasix 40 mg b.i.d., increase activity and discharge her and follow up with Dr. Nagy in about 2 weeks. She is also trying to get some dental work done prior to elective valve surgery. MMODL / IJN: [id number] /
[2019-05-18 11:51] VITALS: RESP 19
[2019-05-18 11:55] LABS: Glucose,Whole Blood 162 mg/dL (75-99)
[2019-05-18 16:05] VITALS: BP 118/69; PULSE 62; TEMP 98.2
[2019-05-18 16:45] LABS: Glucose,Whole Blood 93 mg/dL (75-99)
--- NOTE | 2019-05-19 14:39 | P.DS ---
Providers Date of admission: 05/16/19 23:35 Expected date of discharge: 05/18/19 Attending physician: Johnny Capone Consults: 05/16/19 23:35 Consult Physician Routine Consulting Provider: Camille Dennis Consult Reason/Comments: chf Do you want consulting provider notified?: Yes Primary care physician: Eduin Moore [facility] Course: Chief Complaint: Short of breath History of presenting complaint: This is a pleasant 68-year-old patient of Dr. Moore. Chronic stable medical conditions include coronary artery disease with stent, diabetes, hypertension, hyperlipidemia, hypothyroid, obstructive sleep apnea does not use CPAP. Last intervention was stent to LAD in 2017. Patient now presents 1 week of increasing shortness of breath swelling of the leg. Also's chest pain across the upper chest. No radiation and neck around. Does feel tired rundown. X-ray had shown CHF in the ER. Given IV Lasix to which she feels a bit better. Some orthopnea. at the bedside. No fever no chills. No cough. Admitted with-acute CHF exacerbation. Responded well to Lasix. Doing better by discharge. Patient also's scheduled to have cardiothoracic surgery for her severe mitral regurgitation and single-vessel disease. There is some financial issues with dental clearance.. Social work is involved for the same. Dose of Levemir cut back. Today-doing better. Breathing much improved. Discussed with the patient and family. Cleared by cardiology Consultation: Dr. EDWARD Hubbard from cardiology Physical examination: VITAL SIGNS: 98.5, 77, 19, 136/68, 94% on 2 L GENERAL: [BMI 35.3, sitting up, short of breath-nasal cannula. EYES: Pupils equal. Conjunctiva normal. HEENT: External appearance of nose and ears normal, oral cavity grossly normal. NECK: JVD possibly raise; masses not palpable. HEART: First and second heart sounds are normal; no edema. LUNGS: Respiratory rate normal; decreased breath sounds. ABDOMEN: Soft, nontender, liver spleen not palpable, no masses palpable. PSYCH: [Alert and oriented x3; mood and affect tired l. INVESTIGATIONS, reviewed in the clinical context: Potassium 4.6 creatinine 1.58 Accu-Cheks 53-60 Previous testing White count 9.8 hemoglobin 9.9 potassium 4.3 bun 44 creatinine 1.48 Labs from November 2018-bun 51 creatinine 1.41 EKG tracing personally reviewed by me-normal sinus rhythm with intraventricular block Chest x-ray film personally reviewed by me-cardiomegaly, venous prominence YULIANA-November 2018-moderate to severe tricuspid regurgitation, EF 35-40%, severe mitral regurgitation Assessment: --Acute on chronic congestive heart failure exacerbation from systolic dysfunction EF 35-40%, improved -Moderate to severe tricuspid regurgitation, severe mitral regurgitation, nontraumatic -Coronary artery with stent -Diabetes mellitus type 2, uncontrolled with hypoglycemia -Essential hypertension with urgency -Hyperlipidemia -Hypothyroid -Obstructive status sleep apnea does not use CPAP -Obesity BMI 35.3 Disposition: Home Patient Condition at Discharge: Fair Plan - Discharge Summary New Discharge Prescriptions: New Spironolactone [Aldactone] 12.5 mg PO DAILY #30 tablet Furosemide [Lasix] 40 mg PO DAILY #30 tab Continue Aspirin 81 mg PO DAILY #1 chewable Multivitamins, Thera [Multivitamin (formulary)] 1 tab PO DAILY Atorvastatin [Lipitor] 80 mg PO DAILY Isosorbide Mononitrate ER [Imdur] 30 mg PO DAILY Levothyroxine Sodium [Synthroid] 75 mcg PO DAILY Citalopram Hydrobromide [CeleXA] 20 mg PO DAILY tab Meclizine [Antivert] 12.5 mg PO BID PRN PRN Reason: Vertigo Pantoprazole [Protonix] 40 mg PO DAILY Allopurinol [Zyloprim] 300 mg PO DAILY amLODIPine [Norvasc] 10 mg PO DAILY Carvedilol [Coreg] 6.25 mg PO BID INSULIN ASPART (NovoLOG) [NovoLOG (formulary)] See Protocol SQ AC-TID Magnesium Oxide [Razo] 500 mg PO DAILY Nitroglycerin Sl Tabs [Nitrostat] 0.4 mg SUBLINGUAL Q5M PRN PRN Reason: Chest Pain Acetaminophen Tab [Tylenol] 650 mg PO Q6HR PRN tab PRN Reason: Fever And/ Or Pain Changed Insulin Detemir (Levemir) [Levemir] 30 unit SQ HS #0 Discharge Medication List Aspirin 81 mg PO DAILY #1 chewable 06/05/15 [Rx] Multivitamins, Thera [Multivitamin (formulary)] 1 tab PO DAILY 07/02/15 [History] Atorvastatin [Lipitor] 80 mg PO DAILY 08/01/15 [History] Isosorbide Mononitrate ER [Imdur] 30 mg PO DAILY 08/01/15 [History] Levothyroxine Sodium [Synthroid] 75 mcg PO DAILY 05/01/16 [History] Citalopram Hydrobromide [CeleXA] 20 mg PO DAILY tab 08/14/16 [Rx] Meclizine [Antivert] 12.5 mg PO BID PRN 11/18/16 [History] Pantoprazole [Protonix] 40 mg PO DAILY 07/25/17 [History] Allopurinol [Zyloprim] 300 mg PO DAILY 11/26/18 [History] Carvedilol [Coreg] 6.25 mg PO BID 11/26/18 [History] INSULIN ASPART (NovoLOG) [NovoLOG (formulary)] See Protocol SQ AC-TID 11/26/18 [History] Magnesium Oxide [Razo] 500 mg PO DAILY 11/26/18 [History] Nitroglycerin Sl Tabs [Nitrostat] 0.4 mg SUBLINGUAL Q5M PRN 11/26/18 [History] amLODIPine [Norvasc] 10 mg PO DAILY 11/26/18 [History] Acetaminophen Tab [Tylenol] 650 mg PO Q6HR PRN tab 11/29/18 [Rx] Furosemide [Lasix] 40 mg PO DAILY #30 tab 05/18/19 [Rx] Insulin Detemir (Levemir) [Levemir] 30 unit SQ HS #0 05/18/19 [Rx] Spironolactone [Aldactone] 12.5 mg PO DAILY #30 tablet 05/18/19 [Rx] Follow up Appointment(s)/Referral(s): Eduin Moore MD [Primary Care Provider] - 1-2 days Fausto Nagy MD [STAFF PHYSICIAN] - 05/27/19 11:30 am Patient Instructions/Handouts: Heart Failure (DC), Chest Pain (DC) Activity/Diet/Wound Care/Special Instructions: Dental appointment was set up with [facility] at 12:10PM on [address] [place] [phone] [employer] Goldie Castillo have been notified of appointment. BMP-3 days
== END 2019-05-18 17:55 | disposition home or self-care (01) ==
LOC: EC 22:03 → 1SOBS 23:35 → UNDOADMOB 05-17 → 1SOBS 05-17
PROVIDERS: ADMIT Hospitalist; ATTEND Hospitalist
DX: I13.0 Hypertensive heart and chronic kidney disease with heart failure and stage 1 through stage 4 chronic kidney disease, or unspecified chronic kidney disease (principal); I50.33 Acute on chronic diastolic (congestive) heart failure; E11.22 Type 2 diabetes mellitus with diabetic chronic kidney disease; E11.649 Type 2 diabetes mellitus with hypoglycemia without coma; N18.9 Chronic kidney disease, unspecified; I08.1 Rheumatic disorders of both mitral and tricuspid valves; Z79.4 Long term (current) use of insulin; E78.5 Hyperlipidemia, unspecified; E03.9 Hypothyroidism, unspecified; G47.33 Obstructive sleep apnea (adult) (pediatric); E66.9 Obesity, unspecified; Z68.35 Body mass index [BMI] 35.0-35.9, adult; I25.10 Atherosclerotic heart disease of native coronary artery without angina pectoris; Z95.5 Presence of coronary angioplasty implant and graft; I25.2 Old myocardial infarction; I25.5 Ischemic cardiomyopathy; I44.7 Left bundle-branch block, unspecified; Z79.899 Other long term (current) drug therapy; Z79.82 Long term (current) use of aspirin; Z98.42 Cataract extraction status, left eye; Z83.3 Family history of diabetes mellitus; Z82.49 Family history of ischemic heart disease and other diseases of the circulatory system; Z79.890 Hormone replacement therapy; Z59.9 Problem related to housing and economic circumstances, unspecified
CPT/HCPCS: 96376 ×2; 96372 ×2; 96374; 96375; 99285; 36415; 94640 ×2; 93005; 83880; 80053; 80048; 83605; 83735; 84484 ×2; 85025; 85610; 85730; 71046; G0378 ×2; J2270; J1940; J1650 ×2

== ENCOUNTER 2019-06-29 12:23 | Observation (INO) | payer MEDICARE ==
[2019-06-29] MEDS ORDERED: IPRATROPIUM-ALBUTEROL 3 ML NEB INHALATION STA (12:29)
--- NOTE | 2019-06-29 13:19 | ED ---
SOB HPI - General Source: patient, EMS, RN notes reviewed Mode of arrival: EMS Limitations: no limitations <Vinicio Saucedo - Last Filed: 06/29/19 14:10> <Sergio Juarez - Last Filed: 06/29/19 14:40> - General Chief Complaint: Shortness of Breath Stated Complaint: Weakness Time Seen by Provider: 06/29/19 12:23 - History of Present Illness Initial Comments: This a 68-year-old female presents emergency department via EMS chief complaint of shortness breath, bilateral leg swelling and weakness. Patient states that she's felt increasingly weak over the last few days she's noticed that she's had increased weight gain, leg swelling. She does have a history of CHF. Patient states that she has no known lung disease. Patient has a nonproductive cough. Denies any fevers or chills no headache or dizziness. Patient has had some chest tightness. Patient does admit that she's had multiple hospitalizations for similar complaints. (Vinicio Saucedo) - Related Data Home Medications Medication Instructions Recorded Confirmed Multivitamins, Thera [Multivitamin 1 tab PO DAILY 07/02/15 06/29/19 (formulary)] Atorvastatin [Lipitor] 80 mg PO HS 08/01/15 06/29/19 Isosorbide Mononitrate ER [Imdur] 30 mg PO DAILY 08/01/15 06/29/19 Levothyroxine Sodium [Synthroid] 75 mcg PO DAILY 05/01/16 06/29/19 Meclizine [Antivert] 12.5 mg PO BID PRN 11/18/16 06/29/19 Pantoprazole [Protonix] 40 mg PO DAILY 07/25/17 06/29/19 Allopurinol [Zyloprim] 300 mg PO DAILY 11/26/18 06/29/19 Carvedilol [Coreg] 6.25 mg PO BID 11/26/18 06/29/19 Nitroglycerin Sl Tabs [Nitrostat] 0.4 mg SUBLINGUAL Q5M PRN 11/26/18 06/29/19 amLODIPine [Norvasc] 10 mg PO DAILY 11/26/18 06/29/19 Ferrous Sulfate [Feosol] 325 mg PO DAILY 06/29/19 06/29/19 INSULIN LISPRO (HumaLOG) [humaLOG] 6 units SQ BID 06/29/19 06/29/19 Magnesium Oxide [Mag-Ox] 400 mg PO DAILY 06/29/19 06/29/19 Previous Rx's Medication Instructions Recorded Aspirin 81 mg PO DAILY #1 chewable 06/05/15 Citalopram Hydrobromide [CeleXA] 20 mg PO DAILY tab 08/14/16 Acetaminophen Tab [Tylenol] 650 mg PO Q6HR PRN tab 11/29/18 Insulin Detemir (Levemir) [Levemir] 30 unit SQ HS #0 05/18/19 Spironolactone [Aldactone] 12.5 mg PO DAILY #30 tablet 05/18/19 Allergies Allergy/AdvReac Type Severity Reaction Status Date / Time No Known Allergies Allergy Verified 06/29/19 13:56 Review of Systems ROS Other: All systems not noted in ROS Statement are negative. <Vinicio Saucedo - Last Filed: 06/29/19 14:10> ROS Other: All systems not noted in ROS Statement are negative. <Sergio Juarez - Last Filed: 06/29/19 14:40> ROS Statement: Those systems with pertinent positive or pertinent negative responses have been documented in the HPI. Past Medical History Past Medical History: Coronary Artery Disease (CAD), Chest Pain / Angina, Heart Failure, Diabetes Mellitus, Eye Disorder, Hyperlipidemia, Hypertension, Myocardial Infarction ([place]), Renal Disease, Sleep Apnea/CPAP/BIPAP, Thyroid Disorder Additional Past Medical History / Comment(s): Right cataract. CAD with Stent to Proximal LAD 03/31/2015. Not using CPAP, Recent admit w/ CP, UTI. Cardiac pamela nt to proximal LAD 2016 Last Myocardial Infarction Date:: 03/31/2015 History of Any Multi-Drug Resistant Organisms: None Reported Past Surgical History: Breast Surgery, Heart Catheterization, Heart Catheterization With Stent Additional Past Surgical History / Comment(s): Left breast bx-neg, buttocks sx- pt stated:" they told me I had gangrene and had sx to remove", lt cataract, Heart Cath 11/18/16. Past Anesthesia/Blood Transfusion Reactions: No Reported Reaction Date of Last Stent Placement:: 2014 Past Psychological History: No Psychological Hx Reported Smoking Status: Never smoker Past Alcohol Use History: None Reported Past Drug Use History: None Reported - Past Family History Father Family Medical History: Unable to Obtain Additional Family Medical History / Comment(s): Father from motor vehicle accident Mother Family Medical History: Diabetes Mellitus, Hypertension <Vinicio Saucedo - Last Filed: 06/29/19 14:10> General Exam Limitations: no limitations General appearance: alert, in no apparent distress Head exam: Present: atraumatic, normocephalic, normal inspection Eye exam: Present: normal appearance, PERRL, EOMI. Absent: scleral icterus, conjunctival injection, periorbital swelling ENT exam: Present: normal exam, normal oropharynx, mucous membranes moist Neck exam: Present: normal inspection, full ROM. Absent: tenderness, meningismus, lymphadenopathy Respiratory exam: Present: wheezes, rales. Absent: normal lung sounds bilaterally, respiratory distress, rhonchi, stridor Cardiovascular Exam: Present: normal rhythm, bradycardia, normal heart sounds, systolic murmur. Absent: diastolic murmur, rubs, gallop, clicks GI/Abdominal exam: Present: soft, normal bowel sounds. Absent: distended, tenderness, guarding, rebound, rigid Extremities exam: Present: pedal edema (Bilateral 2+ pitting) Neurological exam: Present: alert, oriented X3, CN II-XII intact Skin exam: Present: warm, dry, intact, normal color. Absent: rash <Vinicio Saucedo - Last Filed: 06/29/19 14:10> Course Vital Signs 06/29/19 06/29/19 06/29/19 12:24 12:48 12:50 Temperature 96.8 F L Pulse Rate 60 Pulse Rate [ 60 Pulse Oximetery ] Respiratory 20 22 Rate Blood Pressure 137/79 O2 Sat by Pulse 95 Oximetry 06/29/19 06/29/19 06/29/19 13:05 13:17 14:34 Temperature 98.3 F Pulse Rate 60 62 63 Pulse Rate [ Pulse Oximetery ] Respiratory 16 Rate Blood Pressure 143/65 O2 Sat by Pulse 98 Oximetry Medical Decision Making - Lab Data Result diagrams: 06/29/19 13:03 06/29/19 13:03 <Vinicio Saucedo - Last Filed: 06/29/19 14:10> - Lab Data Result diagrams: 06/29/19 13:03 06/29/19 13:03 <Sergio Juarez - Last Filed: 06/29/19 14:40> - Medical Decision Making 68-year-old female presented for dyspnea. Patient found to have x-ray consistent with CHF, mildly elevated BMP. Patient's had a weight gain around 10 pounds and exertional dyspnea. Patient will be admitted for CHF exacerbation. Patient also found to be hypoglycemic. Patient placed on hyperglycemia protocol. Patient does take insulin will be closely monitored. (Vinicio Saucedo) Patient reevaluated and reexamined by myself, Dr. Juarez. Patient resting comfortably in bed. Patient has had dyspnea with increased leg edema and 10 pound weight gain. Symptoms similar to previous CHF. Legs do have edema. Lung sounds with mild rales. Chest x-ray concerning for CHF. Patient and family updated. Case discussed in detail with Dr. Capone, who will admit covering for Dr. Moore. I do agree with PA findings. This includes diagnostic interpretation and treatment plan. (Sergio Juarez) - Lab Data Lab Results 06/29/19 06/29/19 06/29/19 Range/Units 13:03 13:03 13:03 WBC 10.2 (3.8-10.6) k/uL RBC 3.40 L (3.80-5.40) m/uL Hgb 9.8 L (11.4-16.0) gm/dL Hct 31.5 L (34.0-46.0) % MCV 92.8 (80.0-100.0) fL MCH 28.7 (25.0-35.0) pg MCHC 31.0 (31.0-37.0) g/dL RDW 15.8 H (11.5-15.5) % Plt Count 226 (150-450) k/uL Neutrophils % 84 % Lymphocytes % 8 % Monocytes % 6 % Eosinophils % 2 % Basophils % 0 % Neutrophils # 8.6 H (1.3-7.7) k/uL Lymphocytes # 0.8 L (1.0-4.8) k/uL Monocytes # 0.6 (0-1.0) k/uL Eosinophils # 0.2 (0-0.7) k/uL Basophils # 0.0 (0-0.2) k/uL Hypochromasia Moderate PT 11.3 (9.0-12.0) sec INR 1.1 (<1.2) APTT 31.3 H (22.0-30.0) sec Sodium 142 (137-145) mmol/L Potassium 5.2 H (3.5-5.1) mmol/L Chloride 110 H (98-107) mmol/L Carbon Dioxide 24 (22-30) mmol/L Anion Gap 8 mmol/L BUN 38 H (7-17) mg/dL Creatinine 1.50 H (0.52-1.04) mg/dL Est GFR (CKD-EPI)AfAm 41 (>60 ml/min/1.73 sqM) Est GFR (CKD-EPI)NonAf 35 (>60 ml/min/1.73 sqM) Glucose 46 L* (74-99) mg/dL POC Glucose (mg/dL) (75-99) mg/dL POC Glu Medical Staff Assistant ID Plasma Lactic Acid Tye (0.7-2.0) mmol/L Calcium 9.2 (8.4-10.2) mg/dL Magnesium 3.0 H (1.6-2.3) mg/dL Total Bilirubin 1.0 (0.2-1.3) mg/dL AST 28 (14-36) U/L ALT 15 (4-34) U/L Alkaline Phosphatase 68 (38-126) U/L Troponin I (0.000-0.034) ng/mL NT-Pro-B Natriuret Pep pg/mL Total Protein 7.3 (6.3-8.2) g/dL Albumin 4.2 (3.5-5.0) g/dL 06/29/19 06/29/19 06/29/19 Range/Units 13:03 13:03 13:03 WBC (3.8-10.6) k/uL RBC (3.80-5.40) m/uL Hgb (11.4-16.0) gm/dL Hct (34.0-46.0) % MCV (80.0-100.0) fL MCH (25.0-35.0) pg MCHC (31.0-37.0) g/dL RDW (11.5-15.5) % Plt Count (150-450) k/uL Neutrophils % % Lymphocytes % % Monocytes % % Eosinophils % % Basophils % % Neutrophils # (1.3-7.7) k/uL Lymphocytes # (1.0-4.8) k/uL Monocytes # (0-1.0) k/uL Eosinophils # (0-0.7) k/uL Basophils # (0-0.2) k/uL Hypochromasia PT (9.0-12.0) sec INR (<1.2) APTT (22.0-30.0) sec Sodium (137-145) mmol/L Potassium (3.5-5.1) mmol/L Chloride (98-107) mmol/L Carbon Dioxide (22-30) mmol/L Anion Gap mmol/L BUN (7-17) mg/dL Creatinine (0.52-1.04) mg/dL Est GFR (CKD-EPI)AfAm (>60 ml/min/1.73 sqM) Est GFR (CKD-EPI)NonAf (>60 ml/min/1.73 sqM) Glucose (74-99) mg/dL POC Glucose (mg/dL) (75-99) mg/dL POC Glu Medical Staff Assistant ID Plasma Lactic Acid Tye <0.5 L (0.7-2.0) mmol/L Calcium (8.4-10.2) mg/dL Magnesium (1.6-2.3) mg/dL Total Bilirubin (0.2-1.3) mg/dL AST (14-36) U/L ALT (4-34) U/L Alkaline Phosphatase (38-126) U/L Troponin I <0.012 (0.000-0.034) ng/mL NT-Pro-B Natriuret Pep 2770 pg/mL Total Protein (6.3-8.2) g/dL Albumin (3.5-5.0) g/dL 06/29/19 06/29/19 Range/Units 13:51 14:19 WBC (3.8-10.6) k/uL RBC (3.80-5.40) m/uL Hgb (11.4-16.0) gm/dL Hct (34.0-46.0) % MCV (80.0-100.0) fL MCH (25.0-35.0) pg MCHC (31.0-37.0) g/dL RDW (11.5-15.5) % Plt Count (150-450) k/uL Neutrophils % % Lymphocytes % % Monocytes % % Eosinophils % % Basophils % % Neutrophils # (1.3-7.7) k/uL Lymphocytes # (1.0-4.8) k/uL Monocytes # (0-1.0) k/uL Eosinophils # (0-0.7) k/uL Basophils # (0-0.2) k/uL Hypochromasia PT (9.0-12.0) sec INR (<1.2) APTT (22.0-30.0) sec Sodium (137-145) mmol/L Potassium (3.5-5.1) mmol/L Chloride (98-107) mmol/L Carbon Dioxide (22-30) mmol/L Anion Gap mmol/L BUN (7-17) mg/dL Creatinine (0.52-1.04) mg/dL Est GFR (CKD-EPI)AfAm (>60 ml/min/1.73 sqM) Est GFR (CKD-EPI)NonAf (>60 ml/min/1.73 sqM) Glucose (74-99) mg/dL POC Glucose (mg/dL) 55 L 65 L (75-99) mg/dL POC Glu Medical Staff Assistant ID NicholasDelmis wang Nicole Plasma Lactic Acid Tye (0.7-2.0) mmol/L Calcium (8.4-10.2) mg/dL Magnesium (1.6-2.3) mg/dL Total Bilirubin (0.2-1.3) mg/dL AST (14-36) U/L ALT (4-34) U/L Alkaline Phosphatase (38-126) U/L Troponin I (0.000-0.034) ng/mL NT-Pro-B Natriuret Pep pg/mL Total Protein (6.3-8.2) g/dL Albumin (3.5-5.0) g/dL Disposition <Vinicio Saucedo - Last Filed: 06/29/19 14:10> <Sergio Juarez - Last Filed: 06/29/19 14:40> Clinical Impression: CHF exacerbation, Hypoglycemia, Generalized weakness, Exertional dyspnea Disposition: ADMITTED IP TO THIS [facility] Condition: Serious Referrals: Eduin Moore MD [Primary Care Provider] - 1-2 days
[2019-06-29 13:20] LABS: Basophils % (A) 0 %; Eosinophils # (A) 0.2 k/uL (0-0.7); Eosinophils % (A) 2 %; HCT 31.5 % (34.0-46.0); HGB 9.8 gm/dL (11.4-16.0); Hypochromasia Moderate; Lymphocytes # (A) 0.8 k/uL (1.0-4.8); Lymphocytes % (A) 8 %; MCH 28.7 pg (25.0-35.0); MCV 92.8 fL (80.0-100.0); Mean Platelet Volume 7.3; Monocytes # (A) 0.6 k/uL (0-1.0); Monocytes % (A) 6 %; Neutrophils # (A) 8.6 k/uL (1.3-7.7); Neutrophils % (A) 84 %; Platelet Count 226 k/uL (150-450); RDW 15.8 % (11.5-15.5); WBC 10.2 k/uL (3.8-10.6)
[2019-06-29 13:28] LABS: INR 1.1 (<1.2); Partial Thromboplastin Time 31.3 sec (22.0-30.0); Prothrombin Time 11.3 sec (9.0-12.0)
--- NOTE | 2019-06-29 13:31 | XR ---
EXAMINATION TYPE: XR chest 2V DATE OF EXAM: 06/29/2019 COMPARISON: 05/16/2019 HISTORY: Difficulty breathing TECHNIQUE: Frontal and lateral views of the chest are obtained. FINDINGS: Cardiomediastinal silhouette is enlarged with trace right pleural effusion. Very mild cent ral pulmonary vascular congestion is seen. No acute osseous process. No focal consolidation or pneumo thorax. IMPRESSION: Findings suggest congestive heart failure with minimal pulmonary vascular congestion and trace right pleural effusion.
[2019-06-29 13:32] LABS: Albumin 4.2 g/dL (3.5-5.0); Calcium 9.2 mg/dL (8.4-10.2); Potassium 5.2 mmol/L (3.5-5.1); Total Protein 7.3 g/dL (6.3-8.2)
[2019-06-29 13:52] LABS: Glucose,Whole Blood 55 mg/dL (75-99)
[2019-06-29] MEDS ORDERED: FUROSEMIDE 10 MG/ML 4 ML VIAL IV STA (14:10)
[2019-06-29] MEDS ORDERED: ACETAMINOPHEN TAB 325 MG TAB PO PRN (14:20)
[2019-06-29] MEDS ORDERED: MECLIZINE 12.5 MG TAB PO PRN (14:20)
[2019-06-29 14:21] LABS: Glucose,Whole Blood 65 mg/dL (75-99)
[2019-06-29] MEDS ORDERED: DEXTROSE 50% SYRINGE 50 ML IVP STA (14:21)
[2019-06-29] MEDS ORDERED: FUROSEMIDE 10 MG/ML 4 ML VIAL IV SCH (14:30)
[2019-06-29 15:00] LABS: Glucose,Whole Blood 135 mg/dL (75-99)
[2019-06-29 15:00] LABS: Glucose,Whole Blood 129 mg/dL (75-99)
[2019-06-29 15:26] LABS: Glucose,Whole Blood 136 mg/dL (75-99)
[2019-06-29 16:44] LABS: Glucose,Whole Blood 125 mg/dL (75-99)
[2019-06-29] MEDS: ATORVASTATIN 80 MG TAB PO SCH (20:11)
[2019-06-29] MEDS: CARVEDILOL 6.25 MG TAB PO SCH (20:11)
[2019-06-29 20:32] LABS: Glucose,Whole Blood 197 mg/dL (75-99)
--- NOTE | 2019-06-29 21:26 | P.HPIM ---
History of Present Illness H&P Date: 06/29/19 Chief Complaint: Short of breath History of presenting complaint: This is a pleasant 68-year-old patient of Dr. Moore. Chronic stable medical conditions include coronary artery disease with stent, diabetes, hypertension, hyperlipidemia, hypothyroid, obstructive sleep apnea does not use CPAP. Last intervention was stent to LAD in 2016. Patient has severe mitral regurgitation and single-vessel disease.-Due for bypass surgery. Patient presents with increasing shortness of breath edema some chills. No cough. No sore throat. No headache. Edema is significant. Always uses 3 pillows. Review of systems: GEN.: Tired EYES: None HEENT: None NECK: None RESPIRATORY: As above] CARDIOVASCULAR: As above GASTROINTESTINAL: None GENITOURINARY: None MUSCULOSKELETAL: None LYMPHATICS: None HEMATOLOGICAL: None PSYCHIATRY: None NEUROLOGICAL: None Past medical history to include: Coronary artery disease with stent, CHF, diabetes, hyperlipidemia, hypertension, obstructive sleep apnea does not use CPAP, hypothyroid, Social history: . No smoking or alcohol Physical examination: VITAL SIGNS: 96.8, 60, 20, 137/79, 95% on room air GENERAL: BMI 41.4, sitting eventually bed, short of breath. EYES: Pupils equal. Conjunctiva normal. HEENT: External appearance of nose and ears normal, oral cavity grossly normal. NECK: JVD possibly raise; masses not palpable. HEART: First and second heart sounds are normal; significant edema LUNGS: Respiratory rate increased; decreased breath sounds. ABDOMEN: Soft, nontender, liver spleen not palpable, no masses palpable. PSYCH: [Alert and oriented x3; mood and affect tired l. NEUROLOGICAL: Cranial nerves grossly intact; no facial asymmetry, power and sensation grossly intact. LYMPHATICS: No lymph nodes palpable in the axilla and neck INVESTIGATIONS, reviewed in the clinical context: White count 10.2 hemoglobin 9.8 platelets 226 potassium 5.2 bun 38 creatinine 1.50 glucose 46 Troponin I less than 0.012, proBNP 2770 EKG tracing personally reviewed by me-shows sinus bradycardia with intraventricular block Chest x-ray film personally reviewed by me-pulmonary edema with small pleural effusion Previous testing [facility]-November 2018-moderate to severe tricuspid regurgitation, EF 35-40%, severe mitral regurgitation Assessment: --Acute on chronic congestive heart failure exacerbation from systolic dysfunction EF 35-40%, from underlying coronary artery disease -Moderate to severe tricuspid regurgitation, severe mitral regurgitation, nontraumatic -Coronary artery with stent -Diabetes mellitus type 2, uncontrolled with hypoglycemia -Essential hypertension -Hyperlipidemia -Hypothyroid -Obstructive status sleep apnea does not use CPAP -Obesity BMI 41.4 Plan: Start the patient on Lasix drip. Strict I's and O's. Home medications resumed. Accu-Cheks will be followed. Care was discussed with the patient question were answered. Coronary consultation. Past Medical History Past Medical History: Coronary Artery Disease (CAD), Chest Pain / Angina, Heart Failure, Diabetes Mellitus, Eye Disorder, Hyperlipidemia, Hypertension, Myocardial Infarction ([place]), Renal Disease, Sleep Apnea/CPAP/BIPAP, Thyroid Disorder Additional Past Medical History / Comment(s): Right cataract. CAD with Stent to Proximal LAD 03/31/2015. Not using CPAP, Recent admit w/ CP, UTI. Cardiac stent to proximal LAD 2016 Last Myocardial Infarction Date:: 03/31/2015 History of Any Multi-Drug Resistant Organisms: None Reported Past Surgical History: Breast Surgery, Heart Catheterization, Heart Catheterization With Stent Additional Past Surgical History / Comment(s): Left breast bx-neg, buttocks sx- pt stated:" they told me I had gangrene and had sx to remove", lt cataract, Heart Cath 11/18/16. Past Anesthesia/Blood Transfusion Reactions: No Reported Reaction Date of Last Stent Placement:: 2014 Past Psychological History: No Psychological Hx Reported Additional Psychological History / Comment(s): Pt resides with her spouse and 2 adult children. Pt is independent. Smoking Status: Never smoker Past Alcohol Use History: None Reported Past Drug Use History: None Reported - Past Family History Father Family Medical History: Unable to Obtain Additional Family Medical History / Comment(s): Father from motor vehicle accident Mother Family Medical History: Diabetes Mellitus, Hypertension Medications and Allergies Home Medications Medication Instructions Recorded Confirmed Type Aspirin 81 mg PO DAILY #1 chewable 06/05/15 06/29/19 Rx Multivitamins, Thera [Multivitamin 1 tab PO DAILY 07/02/15 06/29/19 History (formulary)] Atorvastatin [Lipitor] 80 mg PO HS 08/01/15 06/29/19 History Isosorbide Mononitrate ER [Imdur] 30 mg PO DAILY 08/01/15 06/29/19 History Levothyroxine Sodium [Synthroid] 75 mcg PO DAILY 05/01/16 06/29/19 History Citalopram Hydrobromide [CeleXA] 20 mg PO DAILY tab 08/14/16 06/29/19 Rx Meclizine [Antivert] 12.5 mg PO BID PRN 11/18/16 06/29/19 History Pantoprazole [Protonix] 40 mg PO DAILY 07/25/17 06/29/19 History Allopurinol [Zyloprim] 300 mg PO DAILY 11/26/18 06/29/19 History Carvedilol [Coreg] 6.25 mg PO BID 11/26/18 06/29/19 History Nitroglycerin Sl Tabs [Nitrostat] 0.4 mg SUBLINGUAL Q5M PRN 11/26/18 06/29/19 History amLODIPine [Norvasc] 10 mg PO DAILY 11/26/18 06/29/19 History Acetaminophen Tab [Tylenol] 650 mg PO Q6HR PRN tab 11/29/18 06/29/19 Rx Insulin Detemir (Levemir) [Levemir] 30 unit SQ HS #0 05/18/19 06/29/19 Rx Spironolactone [Aldactone] 12.5 mg PO DAILY #30 tablet 05/18/19 06/29/19 Rx Ferrous Sulfate [Feosol] 325 mg PO DAILY 06/29/19 06/29/19 History INSULIN LISPRO (HumaLOG) [humaLOG] 6 units SQ BID 06/29/19 06/29/19 History Magnesium Oxide [Mag-Ox] 400 mg PO DAILY 06/29/19 06/29/19 History Allergies Allergy/AdvReac Type Severity Reaction Status Date / Time No Known Allergies Allergy Verified 06/29/19 13:56 Physical Exam Vitals: Vital Signs Temp Pulse Pulse Resp BP BP Pulse Ox 06/29/19 18:54 98.5 F 69 18 139/68 99 06/29/19 15:40 97.7 F 67 18 121/68 99 06/29/19 14:34 98.3 F 63 16 143/65 98 06/29/19 13:17 62 06/29/19 13:05 60 06/29/19 12:50 60 06/29/19 12:48 22 06/29/19 12:24 96.8 F L 60 20 137/79 95 Intake and Output 06/29/19 06/29/19 06/29/19 06:59 14:59 22:59 Intake Total 296 Balance 296 Intake: Oral 296 Other: Weight 96.162 kg 96.162 kg Results CBC & Chem 7: 06/29/19 13:03 06/29/19 13:03 Labs: Abnormal Lab Results - Last 24 Hours (Table) 06/29/19 06/29/19 06/29/19 Range/Units 13:03 13:03 13:03 RBC 3.40 L (3.80-5.40) m/uL Hgb 9.8 L (11.4-16.0) gm/dL Hct 31.5 L (34.0-46.0) % RDW 15.8 H (11.5-15.5) % Neutrophils # 8.6 H (1.3-7.7) k/uL Lymphocytes # 0.8 L (1.0-4.8) k/uL APTT 31.3 H (22.0-30.0) sec Potassium 5.2 H (3.5-5.1) mmol/L Chloride 110 H (98-107) mmol/L BUN 38 H (7-17) mg/dL Creatinine 1.50 H (0.52-1.04) mg/dL Glucose 46 L* (74-99) mg/dL POC Glucose (mg/dL) (75-99) mg/dL Plasma Lactic Acid Tye (0.7-2.0) mmol/L Magnesium 3.0 H (1.6-2.3) mg/dL 06/29/19 06/29/19 06/29/19 Range/Units 13:03 13:51 14:19 RBC (3.80-5.40) m/uL Hgb (11.4-16.0) gm/dL Hct (34.0-46.0) % RDW (11.5-15.5) % Neutrophils # (1.3-7.7) k/uL Lymphocytes # (1.0-4.8) k/uL APTT (22.0-30.0) sec Potassium (3.5-5.1) mmol/L Chloride (98-107) mmol/L BUN (7-17) mg/dL Creatinine (0.52-1.04) mg/dL Glucose (74-99) mg/dL POC Glucose (mg/dL) 55 L 65 L (75-99) mg/dL Plasma Lactic Acid Tye <0.5 L (0.7-2.0) mmol/L Magnesium (1.6-2.3) mg/dL 06/29/19 06/29/19 06/29/19 Range/Units 14:42 14:59 15:24 RBC (3.80-5.40) m/uL Hgb (11.4-16.0) gm/dL Hct (34.0-46.0) % RDW (11.5-15.5) % Neutrophils # (1.3-7.7) k/uL Lymphocytes # (1.0-4.8) k/uL APTT (22.0-30.0) sec Potassium (3.5-5.1) mmol/L Chloride (98-107) mmol/L BUN (7-17) mg/dL Creatinine (0.52-1.04) mg/dL Glucose (74-99) mg/dL POC Glucose (mg/dL) 135 H 129 H 136 H (75-99) mg/dL Plasma Lactic Acid Tye (0.7-2.0) mmol/L Magnesium (1.6-2.3) mg/dL 06/29/19 06/29/19 Range/Units 16:42 20:30 RBC (3.80-5.40) m/uL Hgb (11.4-16.0) gm/dL Hct (34.0-46.0) % RDW (11.5-15.5) % Neutrophils # (1.3-7.7) k/uL Lymphocytes # (1.0-4.8) k/uL APTT (22.0-30.0) sec Potassium (3.5-5.1) mmol/L Chloride (98-107) mmol/L BUN (7-17) mg/dL Creatinine (0.52-1.04) mg/dL Glucose (74-99) mg/dL POC Glucose (mg/dL) 125 H 197 H (75-99) mg/dL Plasma Lactic Acid Tye (0.7-2.0) mmol/L Magnesium (1.6-2.3) mg/dL Thrombosis Risk Factor Assmnt - Choose All That Apply Any of the Below Risk Factors Present?: Yes Each Factor Represents 1 point: Obesity (BMI >25) Other Risk Factors: Yes Each Risk Factor Represents 2 Points: Age 61-74 years Thrombosis Risk Factor Assessment Total Risk Factor Score: 3 Thrombosis Risk Factor Assessment Level: Moderate Risk
[2019-06-29] MEDS: FUROSEMIDE 100 MG in SODIUM CHLORIDE 0.9% 90 ML IV SCH (22:32)
[2019-06-30] MEDS: LEVOTHYROXINE 75 MCG TAB PO SCH (05:27)
[2019-06-30 07:07] LABS: Glucose,Whole Blood 134 mg/dL (75-99)
[2019-06-30] MEDS: ALLOPURINOL 300 MG TAB PO SCH (08:50)
[2019-06-30] MEDS: FERROUS SULFATE 325 MG TAB PO SCH (08:50)
[2019-06-30] MEDS: MAGNESIUM OXIDE 400 MG TAB PO SCH (08:50)
[2019-06-30] MEDS: ISOSORBIDE MONONITRATE ER 30 MG TAB.ER.24H PO SCH (08:50)
[2019-06-30] MEDS: MULTIVITAMINS, THERA 1 EACH TAB PO SCH (08:50)
[2019-06-30] MEDS: CARVEDILOL 6.25 MG TAB PO SCH ×2 (08:50→17:23)
[2019-06-30] MEDS: CITALOPRAM HYDROBROMIDE 20 MG TAB PO SCH (08:50)
[2019-06-30] MEDS: PANTOPRAZOLE 40 MG TABLET PO SCH (08:50)
[2019-06-30] MEDS ORDERED: amLODIPine 10 MG TAB PO SCH (09:00)
[2019-06-30] MEDS ORDERED: ASPIRIN 325 MG TAB PO SCH (09:00)
[2019-06-30] MEDS: FUROSEMIDE 100 MG in SODIUM CHLORIDE 0.9% 90 ML IV SCH ×2 (09:45→21:01)
[2019-06-30 10:53] VITALS: BMI 41.3
[2019-06-30 11:42] LABS: Glucose,Whole Blood 193 mg/dL (75-99)
--- NOTE | 2019-06-30 12:58 | P.CRDCN ---
History of Present Illness History of present illness: HISTORY OF PRESENTING ILLNESS This is a pleasant 68-year-old female past medical history significant for coronary artery disease s/p PCI with ongoing distal LAD disease 70-80%, valvular heart disease awaiting REYES-LAD and mitral valve repair, hypertension, dyslipidemia, ischemic cardiomyopathy, chronic systolic heart failure, chronic kidney disease and diabetes mellitus. She follows in the office with Dr. Nagy. We have been asked to see in consultation for shortness of breath and heart failure. She states yesterday morning she was sitting down and she started feeling acutely weak and short of breath. Throughout the day her shortness of breath worsened. Associated with a dry cough and pleuritic chest pain at times. She also has noticed a slow increase in her lower extremity swelling over the last 1-week. She states she has been compliant with her medications. IV lasix infusion has been initiated. She is seen and examined sitting up in bed eating breakfast. She states her breathing has improved since admission. She has started following with a free dental clinic in [place] however she has not had her teeth fixed yet in preparation for bypass and valve surgery. DIAGNOSTICS EKG reveals left bundle branch block, chronic. Chest xray pulmonary vascular congestion and trace right pleural effusion. Laboratory reviewed, WBC 10.2, hgb 9.8, plt 226, sodium 142, potassium 5.2 on admit repeat today 5.0, creatinine 1.56, glucose on arrival 46 s/p treatment repeat today 121, troponin negative x1 and NTproBNP 2770. Current cardiac medications include aspirin 81 mg daily, atorvastatin 80 mg daily, coreg 6.25 mg BID, imdur 30 mg daily, aldactone 12.5 mg daily and amlodipine 10 mg daily. In November 2018 she underwent heart catheterization and YULIANA revealing severe mitral regurgitation and global hypokinesia with ejection fraction 35-40%, patent stent in the LAD with evidence of distal disease of 70-80%. REVIEW OF SYSTEMS At the time of my exam: CONSTITUTIONAL: Denies fever or chills. CARDIOVASCULAR: Complains of shortness of breath. Denies chest pain, orthopnea, PND or palpitations. RESPIRATORY: Denies cough. GASTROINTESTINAL: Denies abdominal pain, diarrhea, constipation, nausea or vomiting. MUSCULOSKELETAL: Denies myalgias. NEUROLOGIC: Denies numbness, tingling or weakness. ENDOCRINE: Denies fatigue, weight change, polydipsia or polyurina. GENITOURINARY: Denies burning, hematuria or urgency with micturation. HEMATOLOGIC: Denies history of anemia or bleeding. PHYSICAL EXAMINATION Blood pressure 139/67 heart rate 66 afebrile and maintaining oxygen saturation on nasal cannula. CONSTITUTIONAL: No apparent distress. HEENT: Head is normocephalic. Pupils are equal, round. Sclerae anicteric. Mucous membranes of the mouth are moist. No JVD. No carotid bruit. CHEST EXAMINATION: Lungs are clear to auscultation. No chest wall tenderness is noted on palpation or with deep breathing. HEART EXAMINATION: Regular rate and rhythm. S1, S2 heard. Systolic ejection murmur at the left sternal border and apex, no gallops or rub. ABDOMEN: Soft, nontender. Positive bowel sounds. EXTREMITIES: 2+ peripheral pulses, 1+ bilateral lower extremity pitting edema and no calf tenderness. NEUROLOGIC EXAMINATION: Patient is awake, alert and oriented x3. ASSESSMENT Acute on chronic systolic heart failure Hyperkalemia Hypokalemia Valvular heart disease awaiting mitral valve repair Coronary artery disease with disease in the distal LAD Hypertension Dyslipidemia Diabetes mellitus Chronic kidney disease Ischemic cardiomyopathy PLAN Continue IV diuresis as previously ordered. Accurate documentation of intake and output along with daily weights. Given her cardiomyopathy should be on an COTY or ARB, we will discontinue amlodipine and initiate losartan 25 mg daily. Decrease aspirin to 81 mg daily. Follow renal function and electrolytes in the morning. Thank you kindly for this consultation. Nurse Practitioner note has been reviewed, I agree with a documented findings and plan of care. Patient was seen and examined. Past Medical History Past Medical History: Coronary Artery Disease (CAD), Chest Pain / Angina, Heart Failure, Diabetes Mellitus, Eye Disorder, Hyperlipidemia, Hypertension, Myocardial Infarction ([place]), Renal Disease, Sleep Apnea/CPAP/BIPAP, Thyroid Disorder Additional Past Medical History / Comment(s): Right cataract. CAD with Stent to Proximal LAD 03/31/2015. Not using CPAP, Recent admit w/ CP, UTI. Cardiac stent to proximal LAD 2016 Last Myocardial Infarction Date:: 03/31/2015 History of Any Multi-Drug Resistant Organisms: None Reported Past Surgical History: Breast Surgery, Heart Catheterization, Heart Catheterization With Stent Additional Past Surgical History / Comment(s): Left breast bx-neg, buttocks sx- pt stated:" they told me I had gangrene and had sx to remove", lt cataract, Heart Cath 11/18/16. Past Anesthesia/Blood Transfusion Reactions: No Reported Reaction Date of Last Stent Placement:: 2014 Past Psychological History: No Psychological Hx Reported Additional Psychological History / Comment(s): Pt resides with her spouse and 2 adult children. Pt is independent. Smoking Status: Never smoker Past Alcohol Use History: None Reported Past Drug Use History: None Reported - Past Family History Father Family Medical History: Unable to Obtain Additional Family Medical History / Comment(s): Father from motor vehicle accident Mother Family Medical History: Diabetes Mellitus, Hypertension Medications and Allergies Home Medications Medication Instructions Recorded Confirmed Type Aspirin 81 mg PO DAILY #1 chewable 06/05/15 06/29/19 Rx Multivitamins, Thera [Multivitamin 1 tab PO DAILY 07/02/15 06/29/19 History (formulary)] Atorvastatin [Lipitor] 80 mg PO HS 08/01/15 06/29/19 History Isosorbide Mononitrate ER [Imdur] 30 mg PO DAILY 08/01/15 06/29/19 History Levothyroxine Sodium [Synthroid] 75 mcg PO DAILY 05/01/16 06/29/19 History Citalopram Hydrobromide [CeleXA] 20 mg PO DAILY tab 08/14/16 06/29/19 Rx Meclizine [Antivert] 12.5 mg PO BID PRN 11/18/16 06/29/19 History Pantoprazole [Protonix] 40 mg PO DAILY 07/25/17 06/29/19 History Allopurinol [Zyloprim] 300 mg PO DAILY 11/26/18 06/29/19 History Carvedilol [Coreg] 6.25 mg PO BID 11/26/18 06/29/19 History Nitroglycerin Sl Tabs [Nitrostat] 0.4 mg SUBLINGUAL Q5M PRN 11/26/18 06/29/19 History amLODIPine [Norvasc] 10 mg PO DAILY 11/26/18 06/29/19 History Acetaminophen Tab [Tylenol] 650 mg PO Q6HR PRN tab 11/29/18 06/29/19 Rx Insulin Detemir (Levemir) [Levemir] 30 unit SQ HS #0 05/18/19 06/29/19 Rx Spironolactone [Aldactone] 12.5 mg PO DAILY #30 tablet 05/18/19 06/29/19 Rx Ferrous Sulfate [Feosol] 325 mg PO DAILY 06/29/19 06/29/19 History INSULIN LISPRO (HumaLOG) [humaLOG] 6 units SQ BID 06/29/19 06/29/19 History Magnesium Oxide [Mag-Ox] 400 mg PO DAILY 06/29/19 06/29/19 History Allergies Allergy/AdvReac Type Severity Reaction Status Date / Time No Known Allergies Allergy Verified 06/29/19 13:56 Physical Exam Vitals: Vital Signs Temp Pulse Pulse Resp BP BP Pulse Ox 06/30/19 08:00 66 15 06/30/19 07:40 99.9 F H 66 15 139/67 98 06/30/19 02:18 99.2 F 61 18 128/69 99 06/29/19 18:54 98.5 F 69 18 139/68 99 06/29/19 15:40 97.7 F 67 18 121/68 99 06/29/19 14:34 98.3 F 63 16 143/65 98 06/29/19 13:17 62 06/29/19 13:05 60 06/29/19 12:50 60 06/29/19 12:48 22 06/29/19 12:24 96.8 F L 60 20 137/79 95 Intake and Output 06/29/19 06/30/19 06/30/19 22:59 06:59 14:59 Intake Total 296 300 396 Balance 296 300 396 Intake: Intake, IV Titration 100 Amount Furosemide 100 mg In 100 Sodium Chloride 0.9% 90 ml @ 10 MG/HR 10 mls/hr IV .Q10H [facility] Rx#: [id number] Oral 296 300 296 Other: # Voids 2 1 # Bowel Movements 1 Weight 96.162 kg 96.162 kg Results 06/29/19 13:03 06/30/19 07:20 Cardiac Enzymes 06/29/19 06/29/19 Range/Units 13:03 13:03 AST 28 (14-36) U/L Troponin I <0.012 (0.000-0.034) ng/mL Coagulation 06/29/19 Range/Units 13:03 PT 11.3 (9.0-12.0) sec APTT 31.3 H (22.0-30.0) sec CBC 06/29/19 Range/Units 13:03 WBC 10.2 (3.8-10.6) k/uL RBC 3.40 L (3.80-5.40) m/uL Hgb 9.8 L (11.4-16.0) gm/dL Hct 31.5 L (34.0-46.0) % Plt Count 226 (150-450) k/uL Comprehensive Metabolic Panel 06/29/19 06/30/19 Range/Units 13:03 07:20 Sodium 142 140 (137-145) mmol/L Potassium 5.2 H 5.0 (3.5-5.1) mmol/L Chloride 110 H 109 H (98-107) mmol/L Carbon Dioxide 24 23 (22-30) mmol/L BUN 38 H 37 H (7-17) mg/dL Creatinine 1.50 H 1.56 H (0.52-1.04) mg/dL Glucose 46 L* 121 H (74-99) mg/dL Calcium 9.2 9.0 (8.4-10.2) mg/dL AST 28 (14-36) U/L ALT 15 (4-34) U/L Alkaline Phosphatase 68 (38-126) U/L Total Protein 7.3 (6.3-8.2) g/dL Albumin 4.2 (3.5-5.0) g/dL Current Medications Generic Name Dose Route Start Last Admin Trade Name Freq PRN Reason Stop Dose Admin Acetaminophen 650 mg 06/29/19 14:20 Tylenol Tab PO Q6HR PRN Fever and/ or mild Pain Allopurinol 300 mg 06/30/19 09:00 06/30/19 08:50 Zyloprim PO 300 mg DAILY [facility] Administration Amlodipine Besylate 10 mg 06/30/19 09:00 06/30/19 08:50 Norvasc PO 10 mg DAILY [facility] Administration Aspirin 325 mg 06/30/19 09:00 06/30/19 08:50 Aspirin PO 325 mg DAILY [facility]IA Administration Atorvastatin Calcium 80 mg 06/29/19 21:00 06/29/19 20:11 Lipitor PO 80 mg HS [facility]ELIA Administration Carvedilol 6.25 mg 06/29/19 17:30 06/30/19 08:50 Coreg PO 6.25 mg BID-W/MEALS [facility]ELIA Administration Citalopram Hydrobromide 20 mg 06/30/19 09:00 06/30/19 08:50 Celexa PO 20 mg DAILY [facility]ELIA Administration Ferrous Sulfate 325 mg 06/30/19 09:00 06/30/19 08:50 Feosol PO 325 mg DAILY [facility]IA Administration Furosemide 100 mg/ Sodium 100 mls @ 10 mls/hr 06/29/19 21:30 06/30/19 09:45 Chloride IV 10 mg/hr .Q10H [facility]IA 10 mls/hr Administration 10 MG/HR Isosorbide Mononitrate 30 mg 06/30/19 09:00 06/30/19 08:50 Imdur PO 30 mg DAILY [facility] Administration Levothyroxine Sodium 75 mcg 06/30/19 06:30 06/30/19 05:27 Synthroid PO 75 mcg DAILY@0630 [facility] Administration Magnesium Oxide 400 mg 06/30/19 09:00 06/30/19 08:50 Mag-Ox PO 400 mg DAILY [facility] Administration Meclizine HCl 12.5 mg 06/29/19 14:20 Antivert PO BID PRN Vertigo Multivitamins 1 each 06/30/19 09:00 06/30/19 08:50 Theragran PO 1 each DAILY [facility]ELIA Administration Pantoprazole Sodium 40 mg 06/30/19 07:30 06/30/19 08:50 Protonix PO 40 mg AC-BRKFST EVELIA Administration Intake and Output 06/29/19 06/30/19 06/30/19 22:59 06:59 14:59 Intake Total 296 300 396 Balance 296 300 396 Intake: Intake, IV Titration 100 Amount Furosemide 100 mg In 100 Sodium Chloride 0.9% 90 ml @ 10 MG/HR 10 mls/hr IV .Q10H [facility] Rx#: [id number] Oral 296 300 296 Other: # Voids 2 1 # Bowel Movements 1 Weight 96.162 kg 96.162 kg Patient Weight 07/01/19 06:59 Weight 96.162 kg 06/29/19 13:03 06/30/19 07:20
[2019-06-30 17:13] LABS: Glucose,Whole Blood 230 mg/dL (75-99)
--- NOTE | 2019-06-30 17:48 | P.PN ---
Progress Note - Text Progress Note Date: 06/30/19 Chief Complaint: Short of breath History of presenting complaint: This is a pleasant 68-year-old patient of Dr. Moore. Chronic stable medical conditions include coronary artery disease with stent, diabetes, hypertension, hyperlipidemia, hypothyroid, obstructive sleep apnea does not use CPAP. Last intervention was stent to LAD in 2017. Patient has severe mitral regurgitation and single-vessel disease.-Due for bypass surgery. Patient presents with increasing shortness of breath edema some chills. No cough. No sore throat. No headache. Edema is significant. Always uses 3 pillows. Admitted with CHF exacerbation. Started on IV Lasix drip. Today-remain short of breath at rest. I's and O's not documented accurately. Did tolerate some diet. Review of systems: Was done for constitutional, cardiovascular, GI, pulmonary. relevant finding as above Active Medications Acetaminophen (Tylenol Tab) 650 mg PO Q6HR PRN PRN Reason: Fever and/ or mild Pain Allopurinol (Zyloprim) 300 mg PO DAILY [facility] Last Admin: 06/30/19 08:50 Dose: 300 mg Documented by: Aspirin (Aspirin) 81 mg PO DAILY [facility] Atorvastatin Calcium (Lipitor) 80 mg PO HS [facility] [place] Last Admin: 06/29/19 20:11 Dose: 80 mg Documented by: Carvedilol (Coreg) 6.25 mg PO BID-W/MEALS [facility] [place] Last Admin: 06/30/19 17:23 Dose: 6.25 mg Documented by: Citalopram Hydrobromide (Celexa) 20 mg PO DAILY [facility] [place] Last Admin: 06/30/19 08:50 Dose: 20 mg Documented by: Ferrous Sulfate (Feosol) 325 mg PO DAILY [facility] [place] Last Admin: 06/30/19 08:50 Dose: 325 mg Documented by: Furosemide 100 mg/ Sodium (Chloride) 100 mls @ 10 mls/hr IV .Q10H [facility] [place] Last Admin: 06/30/19 09:45 Dose: 10 mg/hr, 10 mls/hr Documented by: Isosorbide Mononitrate (Imdur) 30 mg PO DAILY [facility] [place] Last Admin: 06/30/19 08:50 Dose: 30 mg Documented by: Levothyroxine Sodium (Synthroid) 75 mcg PO DAILY@0630 [facility] [place] Last Admin: 06/30/19 05:27 Dose: 75 mcg Documented by: Losartan Potassium (Cozaar) 25 mg PO DAILY [facility] [place] Magnesium Oxide (Mag-Ox) 400 mg PO DAILY [facility] [place] Last Admin: 06/30/19 08:50 Dose: 400 mg Documented by: Meclizine HCl (Antivert) 12.5 mg PO BID PRN PRN Reason: Vertigo Multivitamins (Theragran) 1 each PO DAILY [facility] [place] Last Admin: 06/30/19 08:50 Dose: 1 each Documented by: Pantoprazole Sodium (Protonix) 40 mg PO AC-BRKFST [facility] [place] Last Admin: 06/30/19 08:50 Dose: 40 mg Documented by: Physical examination: VITAL SIGNS: 99.9, 66, 15, 139/67, 98% on 2.5 L GENERAL: Laying in bed, short of breath at rest EYES: Pupils equal. Conjunctiva normal. HEENT: External appearance of nose and ears normal, oral cavity grossly normal. NECK: JVD possibly raise; masses not palpable. HEART: First and second heart sounds are normal; significant edema LUNGS: Respiratory rate increased; decreased breath sounds. ABDOMEN: Soft, nontender, liver spleen not palpable, no masses palpable. PSYCH: [Alert and oriented x3; mood and affect tired l. INVESTIGATIONS, reviewed in the clinical context: Potassium 5 bun 37 creatinine 1.56 Previous testing White count 10.2 hemoglobin 9.8 platelets 226 potassium 5.2 bun 38 creatinine 1.50 glucose 46 Troponin I less than 0.012, proBNP 2770 EKG tracing personally reviewed by me-shows sinus bradycardia with intraventricular block Chest x-ray film personally reviewed by me-pulmonary edema with small pleural effusion Previous testing YULIANA-November 2018-moderate to severe tricuspid regurgitation, EF 35-40%, severe mitral regurgitation Assessment: --Acute on chronic congestive heart failure exacerbation from systolic dysfunction EF 35-40%, from underlying coronary artery disease, POA-on IV Lasix drip, slow to respond -Moderate to severe tricuspid regurgitation, severe mitral regurgitation, nontraumatic -Coronary artery with stent -Diabetes mellitus type 2, uncontrolled with hypoglycemia -Essential hypertension -Hyperlipidemia -Hypothyroid -Obstructive status sleep apnea does not use CPAP -Obesity BMI 41.4 Plan: Continue Lasix drip. Reinforce I's and O's. Discussed with the patient. Follow with cardiology. Follow labs.
[2019-06-30 20:20] LABS: Glucose,Whole Blood 296 mg/dL (75-99)
[2019-06-30] MEDS ORDERED: INSULIN DETEMIR (LEVEMIR) 100 UNIT/ML SYR SQ SCH (21:00)
[2019-06-30] MEDS: ATORVASTATIN 80 MG TAB PO SCH (21:03)
[2019-06-30] MEDS: INSULIN ASPART (NovoLOG) 100 UNIT/ML VIAL SQ SCH (22:40)
[2019-07-01] MEDS: FUROSEMIDE 100 MG in SODIUM CHLORIDE 0.9% 90 ML IV SCH (01:38)
[2019-07-01] MEDS: LEVOTHYROXINE 75 MCG TAB PO SCH (06:05)
[2019-07-01 06:54] LABS: Glucose,Whole Blood 80 mg/dL (75-99)
[2019-07-01 07:40] VITALS: BP 145/80; PULSE 63; RESP 20; TEMP 97.3
[2019-07-01 08:02] LABS: Calcium 9.5 mg/dL (8.4-10.2); Potassium 4.7 mmol/L (3.5-5.1)
[2019-07-01] MEDS: PANTOPRAZOLE 40 MG TABLET PO SCH (08:08)
[2019-07-01] MEDS: MAGNESIUM OXIDE 400 MG TAB PO SCH (08:08)
[2019-07-01] MEDS: ALLOPURINOL 300 MG TAB PO SCH (08:08)
[2019-07-01] MEDS: CITALOPRAM HYDROBROMIDE 20 MG TAB PO SCH (08:08)
[2019-07-01] MEDS: FERROUS SULFATE 325 MG TAB PO SCH (08:08)
[2019-07-01] MEDS: CARVEDILOL 6.25 MG TAB PO SCH (08:08)
[2019-07-01] MEDS: ISOSORBIDE MONONITRATE ER 30 MG TAB.ER.24H PO SCH (08:08)
[2019-07-01] MEDS: MULTIVITAMINS, THERA 1 EACH TAB PO SCH (08:08)
[2019-07-01] MEDS: INSULIN ASPART (NovoLOG) 100 UNIT/ML VIAL SQ SCH ×2 (08:09→13:09)
--- NOTE | 2019-07-01 08:26 | XR ---
EXAMINATION TYPE: XR chest 2V DATE OF EXAM: 07/01/2019 COMPARISON: 06/29/2019 HISTORY: Congestive heart failure and shortness of breath TECHNIQUE: Frontal and lateral views of the chest are obtained. FINDINGS: There remains a trace right pleural effusion blunting the costophrenic angle. Cardiomedias tinal silhouette is enlarged. Improved peripheral pulmonary vascular congestion. Moderate degenerativ e change of the spine. No focal consolidation or pneumothorax. Cholecystectomy clips are seen. Right hemidiaphragm remains slightly elevated. IMPRESSION: Persistent trace right pleural effusion however improved pulmonary vascular congestion.
[2019-07-01] MEDS ORDERED: FUROSEMIDE 40 MG TAB PO SCH (09:00)
[2019-07-01] MEDS ORDERED: LOSARTAN 25 MG TAB PO SCH (09:00)
[2019-07-01] MEDS ORDERED: ASPIRIN 81 MG PO SCH (09:00)
[2019-07-01] MEDS ORDERED: FUROSEMIDE 10 MG/ML 4 ML VIAL IV SCH (09:00)
--- NOTE | 2019-07-01 09:24 | P.PN ---
Subjective HISTORY OF PRESENTING ILLNESS This is a pleasant 68-year-old female past medical history significant for coronary artery disease s/p PCI with ongoing distal LAD disease 70-80%, valvular heart disease awaiting REYES-LAD and mitral valve repair, hypertension, dyslipidemia, ischemic cardiomyopathy, chronic systolic heart failure, chronic kidney disease and diabetes mellitus. She follows in the office with Dr. Nagy. She is seen and examined laying flat in bed in no acute distress. She states her breathing is improving but not entirely back to baseline. She has been up ambulating to the bathroom but that is the extent of her activity. She denies chest pain, dizziness or palpitations. Blood pressure 145/80 heart rate 63 afebrile and maintaining oxygen saturation on nasal cannula. She is maintaining a negative fluid balance of over 800cc. Laboratory data reviewed, sodium 143, potassium 4.7, creatinine 1.79. Currently maintained on lasix infusion per PCP. Repeat chest xray this morning reveals improved pulmonary congestion with ongoing small right pleural effusion. PHYSICAL EXAMINATION CONSTITUTIONAL: No apparent distress. HEENT: Head is normocephalic. Pupils are equal, round. Sclerae anicteric. Mucous membranes of the mouth are moist. No JVD. No carotid bruit. CHEST EXAMINATION: Lungs are clear to auscultation. No chest wall tenderness is noted on palpation or with deep breathing. HEART EXAMINATION: Regular rate and rhythm. S1, S2 heard. Systolic ejection murmur at the left sternal border and apex, no gallops or rub. EXTREMITIES: 2+ peripheral pulses, 1+ bilateral lower extremity pitting edema and no calf tenderness. ASSESSMENT Acute on chronic systolic heart failure Hyperkalemia Hypokalemia Valvular heart disease awaiting mitral valve repair Coronary artery disease with disease in the distal LAD Hypertension Dyslipidemia Diabetes mellitus Chronic kidney disease Ischemic cardiomyopathy PLAN Transition to IV lasix 40 mg BID with plans to start oral tomorrow and possibly be stable to go home. Follow renal function and electrolytes in the morning. Continue to accurately document intake and output along with daily weights. Nurse Practitioner note has been reviewed, I agree with a documented findings and plan of care. Patient was seen and examined. Objective - Vital Signs Vital signs: Vital Signs Temp 97.3 F L 07/01/19 07:10 Pulse 63 07/01/19 07:10 Resp 20 07/01/19 07:10 BP 145/80 07/01/19 07:10 Pulse Ox 98 07/01/19 07:10 Intake & Output 06/30/19 07/01/19 07/01/19 18:59 06:59 18:59 Intake Total 618 146.167 Output Total 1600 Balance 618 -1453.833 Weight 106.6 kg Intake: Intake, IV Titration 100 146.167 Amount Furosemide 100 mg In 100 146.167 Sodium Chloride 0.9% 90 ml @ 10 MG/HR 10 mls/hr IV .Q10H [facility] Rx#: [id number] Oral 518 Output: Urine 1600 Other: # Voids 1 # Bowel Movements 1 - Labs CBC & Chem 7: 06/29/19 13:03 07/01/19 07:14 Labs: Abnormal Lab Results - Last 24 Hours (Table) 06/30/19 06/30/19 06/30/19 Range/Units 11:40 17:11 20:18 BUN (7-17) mg/dL Creatinine (0.52-1.04) mg/dL Glucose (74-99) mg/dL POC Glucose (mg/dL) 193 H 230 H 296 H (75-99) mg/dL 07/01/19 Range/Units 07:14 BUN 40 H (7-17) mg/dL Creatinine 1.79 H (0.52-1.04) mg/dL Glucose 73 L (74-99) mg/dL POC Glucose (mg/dL) (75-99) mg/dL
--- NOTE | 2019-07-01 10:33 | CDI ---
Documentation Clarification Form Date: 07/01/2019 10:23:23 AM From: Azucena Landrum CCS, CCDS Admit Date: 06/29/2019 02:26:00 PM Patient Name: Cony Mcmillan Visit Number: [id number] Discharge Date: ATTENTION: The Clinical Documentation Specialists (CDI) and [facility] Coding Staff appreciate your assistance in clarifying documentation. Please respond to the clarification below the line at the bottom and electronically sign. The CDI & [facility] Coding staff will review the response and follow-up if needed. Please note: Queries are made part of the Legal Health Record. If you have any questions, please contact the author of this message via ITS. Dr. Lincoln Maher: CKD is documented in the 06/29 Cardiology Consult and also the subsequent 06/30 Cardiology Progress note without further specificity. History/Risk Factors: CAD with stent, DM II, Hypertension, Hyperlipidemia, Hypothyroid, SEBASTIEN, non smoker. Clinical Indicators: Patient presented to the ED on 06/28 with SOB, diagnosed with Hypertensive heart disease, acute on chronic systolic heart failure & CKD nos. Patient's baseline Creatinine is not documented or unknown. Lab Values: 06/28: BUN 38^, Cr 1.50^, GFR 35. 06/29: BUN 37^, Cr 1.56^, GFR 34. Current lab values (06/30): BUN 40^, Cr 1.79^, GFR 29 Lab Values 11/26/16: BUN 40, Cr 1.79, GFR 45-54. Treatment: INH Albuterol duoneb, IV Lasix, IV Dextrose/Water 25 ml In order to capture the severity of condition, please clarify the stage of the CKD, if known: CKD Stage 3 (GFR 30-59) CKD Stage 4 (GFR 15-29) Other, please specify Unable to determine (Last Revision: May 2019) MTDD
[2019-07-01 12:10] LABS: Glucose,Whole Blood 126 mg/dL (75-99)
[2019-07-01 16:59] LABS: Hemoglobin A1C 7.1 % (4.0-6.0)
--- NOTE | 2019-07-01 22:38 | P.DS ---
Providers Date of admission: 06/29/19 14:26 Expected date of discharge: 07/01/19 Attending physician: Johnny Capone Consults: 06/29/19 14:12 Consult Physician Routine Consulting Provider: Lincoln Maher Consult Reason/Comments: CHF Do you want consulting provider notified?: Yes Primary care physician: Eduin Moore [facility] Course: Chief Complaint: Short of breath History of presenting complaint: This is a pleasant 68-year-old patient of Dr. Moore. Chronic stable medical conditions include coronary artery disease with stent, diabetes, hypertension, hyperlipidemia, hypothyroid, obstructive sleep apnea does not use CPAP. Last intervention was stent to LAD in 2017. Patient has severe mitral regurgitation and single-vessel disease.-Due for bypass surgery. Patient presents with increasing shortness of breath edema some chills. No cough. No sore throat. No headache. Edema is significant. Always uses 3 pillows. Admitted with CHF exacerbation. Started on IV Lasix drip.responded well. Today-much improvement today. Has been out of bed. Symptoms much improved. Cleared by cardiology Discussed with the patient. Questions were answered.. Discussion and discharge planning more than 35 minutes Consultation: Dr. Prabhjot Nagy from cardiology Physical examination: VITAL SIGNS: 97.3, 63, 20, 145/80, 98% on 2 L GENERAL: sitting up, comfortable EYES: Pupils equal. Conjunctiva normal. HEENT: External appearance of nose and ears normal, oral cavity grossly normal. NECK: JVD possibly raise; masses not palpable. HEART: First and second heart sounds are normal; minimal edema LUNGS: Respiratory rate increased; decreased breath sounds. ABDOMEN: Soft, nontender, liver spleen not palpable, no masses palpable. PSYCH: [Alert and oriented x3; mood and affect tired l. INVESTIGATIONS, reviewed in the clinical context: potassium 4.7 bun 40 creatinine 1.79 Previous testing White count 10.2 hemoglobin 9.8 platelets 226 potassium 5.2 bun 38 creatinine 1.50 glucose 46 Troponin I less than 0.012, proBNP 2770 EKG tracing personally reviewed by me-shows sinus bradycardia with intraventricular block Chest x-ray film personally reviewed by me-pulmonary edema with small pleural effusion Previous testing YULIANA-November 2018-moderate to severe tricuspid regurgitation, EF 35-40%, severe mitral regurgitation Assessment: --Acute on chronic congestive heart failure exacerbation from systolic dysfunction EF 35-40%, from underlying coronary artery disease, POA-improved -Moderate to severe tricuspid regurgitation, severe mitral regurgitation, nontraumatic -Coronary artery with stent -Diabetes mellitus type 2, uncontrolled with hypoglycemia -Essential hypertension -Hyperlipidemia -Hypothyroid -Obstructive status sleep apnea does not use CPAP -Obesity BMI 41.4 disposition: Home. Patient Condition at Discharge: Stable Plan - Discharge Summary Discharge Rx Participant: No New Discharge Prescriptions: New Furosemide [Lasix] 60 mg PO DAILY #60 tablet Continue Aspirin 81 mg PO DAILY #1 chewable Multivitamins, Thera [Multivitamin (formulary)] 1 tab PO DAILY Atorvastatin [Lipitor] 80 mg PO HS Isosorbide Mononitrate ER [Imdur] 30 mg PO DAILY Levothyroxine Sodium [Synthroid] 75 mcg PO DAILY Citalopram Hydrobromide [CeleXA] 20 mg PO DAILY tab Meclizine [Antivert] 12.5 mg PO BID PRN PRN Reason: Vertigo Pantoprazole [Protonix] 40 mg PO DAILY Allopurinol [Zyloprim] 300 mg PO DAILY Carvedilol [Coreg] 6.25 mg PO BID Nitroglycerin Sl Tabs [Nitrostat] 0.4 mg SUBLINGUAL Q5M PRN PRN Reason: Chest Pain Acetaminophen Tab [Tylenol] 650 mg PO Q6HR PRN tab PRN Reason: Fever And/ Or Pain INSULIN LISPRO (HumaLOG) [humaLOG] 6 units SQ BID Magnesium Oxide [Mag-Ox] 400 mg PO DAILY Ferrous Sulfate [Iron (65 MG Elemental)] 325 mg PO DAILY Changed Spironolactone [Aldactone] 25 mg PO DAILY #30 tablet Insulin Detemir (Levemir) [Levemir] 22 unit SQ HS #0 Discontinued amLODIPine [Norvasc] 10 mg PO DAILY Discharge Medication List Aspirin 81 mg PO DAILY #1 chewable 06/05/15 [Rx] Multivitamins, Thera [Multivitamin (formulary)] 1 tab PO DAILY 07/02/15 [History] Atorvastatin [Lipitor] 80 mg PO HS 08/01/15 [History] Isosorbide Mononitrate ER [Imdur] 30 mg PO DAILY 08/01/15 [History] Levothyroxine Sodium [Synthroid] 75 mcg PO DAILY 05/01/16 [History] Citalopram Hydrobromide [CeleXA] 20 mg PO DAILY tab 08/14/16 [Rx] Meclizine [Antivert] 12.5 mg PO BID PRN 11/18/16 [History] Pantoprazole [Protonix] 40 mg PO DAILY 07/25/17 [History] Allopurinol [Zyloprim] 300 mg PO DAILY 11/26/18 [History] Carvedilol [Coreg] 6.25 mg PO BID 11/26/18 [History] Nitroglycerin Sl Tabs [Nitrostat] 0.4 mg SUBLINGUAL Q5M PRN 11/26/18 [History] Acetaminophen Tab [Tylenol] 650 mg PO Q6HR PRN tab 11/29/18 [Rx] Ferrous Sulfate [Iron (65 MG Elemental)] 325 mg PO DAILY 06/29/19 [History] INSULIN LISPRO (HumaLOG) [humaLOG] 6 units SQ BID 06/29/19 [History] Magnesium Oxide [Mag-Ox] 400 mg PO DAILY 06/29/19 [History] Furosemide [Lasix] 60 mg PO DAILY #60 tablet 07/01/19 [Rx] Insulin Detemir (Levemir) [Levemir] 22 unit SQ HS #0 07/01/19 [Rx] Spironolactone [Aldactone] 25 mg PO DAILY #30 tablet 07/01/19 [Rx] Follow up Appointment(s)/Referral(s): Eduin Moore MD [Primary Care Provider] - 07/08/19 2:00 pm Fausto Nagy MD [STAFF PHYSICIAN] - 07/18/19 4:00 pm Patient Instructions/Handouts: Heart Failure (DC) Activity/Diet/Wound Care/Special Instructions: bmp - 5 days Discharge Disposition: HOME SELF-CARE
== END 2019-07-01 15:46 | disposition home or self-care (01) ==
LOC: EC 12:23 → INTOOBSV 14:26 → 4SSUR 14:26 → UNDODISIN 07-01 15:46
PROVIDERS: ADMIT Hospitalist; ATTEND Hospitalist
DX: I13.0 Hypertensive heart and chronic kidney disease with heart failure and stage 1 through stage 4 chronic kidney disease, or unspecified chronic kidney disease (principal); I50.23 Acute on chronic systolic (congestive) heart failure; N18.3 Chronic kidney disease, stage 3 (moderate); E66.9 Obesity, unspecified; Z68.41 Body mass index [BMI] 40.0-44.9, adult; I25.10 Atherosclerotic heart disease of native coronary artery without angina pectoris; E78.5 Hyperlipidemia, unspecified; E03.9 Hypothyroidism, unspecified; G47.33 Obstructive sleep apnea (adult) (pediatric); E11.649 Type 2 diabetes mellitus with hypoglycemia without coma; I08.1 Rheumatic disorders of both mitral and tricuspid valves; I25.5 Ischemic cardiomyopathy; E87.5 Hyperkalemia; E87.6 Hypokalemia; I25.2 Old myocardial infarction; Z98.890 Other specified postprocedural states; I44.7 Left bundle-branch block, unspecified; E11.22 Type 2 diabetes mellitus with diabetic chronic kidney disease; Z95.5 Presence of coronary angioplasty implant and graft; Z79.82 Long term (current) use of aspirin; Z79.899 Other long term (current) drug therapy; Z79.890 Hormone replacement therapy; Z79.4 Long term (current) use of insulin; Z87.440 Personal history of urinary (tract) infections; Z82.49 Family history of ischemic heart disease and other diseases of the circulatory system; Z83.3 Family history of diabetes mellitus
CPT/HCPCS: 96376 ×2; 96365; 96366 ×2; 96375; 99285; 36415; 94640; 93005; 83880; 80053; 80048 ×2; 83605; 83735; 84484; 85025; 85610; 85730; 83036; 71046 ×2; G0378 ×3; J1940 ×5; 96374

== ENCOUNTER → 2019-09-29 | Outpatient (CLI) | payer MEDICARE ==
[2019-09-29 10:22] LABS: Appearance,Urine Cloudy (Clear); Bacteria,Urine Many /hpf; Bilirubin,Urine Negative (Negative); Blood,Urine Moderate (Negative); Color,Urine Light Yellow; Glucose,Urine (UA) Negative (Negative); Hyaline Casts,Urine 5 /lpf (0-2); Ketones,Urine Negative (Negative); Leukocyte Esterase,Urine Large (Negative); Mucus,Urine Rare /hpf; Nitrite,Urine Negative (Negative); PH, Urine 5.5 (5.0-8.0); Protein,Urine Trace (Negative); RBC,Urine 87 /hpf (0-5); Specific Gravity,Urine 1.011 (1.001-1.035); Squamous Epithelial Cell,Urine 4 /hpf (0-4); Urobilinogen,Urine <2.0 mg/dL (<2.0); WBC,Urine >182 /hpf (0-5)
[2019-09-29 10:42] LABS: Anisocytosis Slight; HCT 39.4 % (34.0-46.0); HGB 12.5 gm/dL (11.4-16.0); Hypochromasia Slight; MCH 28.3 pg (25.0-35.0); MCHC 31.6 g/dL (31.0-37.0); MCV 89.5 fL (80.0-100.0); Mean Platelet Volume 7.7; Platelet Count 278 k/uL (150-450); RBC 4.41 m/uL (3.80-5.40); RDW 17.1 % (11.5-15.5); WBC 10.8 k/uL (3.8-10.6)
[2019-09-29 10:47] LABS: INR 0.9 (<1.2); Partial Thromboplastin Time 26.4 sec (22.0-30.0); Prothrombin Time 9.7 sec (9.0-12.0)
--- NOTE | 2019-09-29 11:38 | XR ---
EXAMINATION TYPE: XR chest 2V DATE OF EXAM: 09/29/2019 COMPARISON: 07/01/2019 TECHNIQUE: PA and lateral views submitted. HISTORY: Presurgical FINDINGS: The lungs are clear and there is no pneumothorax, pleural effusion, or focal pneumonia. Hypertrophi c and degenerative change of the spine. Heart size stable. No overt failure. Biapical pleural thicken ing. IMPRESSION: 1. No acute process.
[2019-09-29 12:17] LABS: Albumin 4.3 g/dL (3.5-5.0); Magnesium 1.6 mg/dL (1.6-2.3); Potassium 4.5 mmol/L (3.5-5.1); Total Bilirubin 0.7 mg/dL (0.2-1.3); Total Protein 7.7 g/dL (6.3-8.2)
[2019-09-29 18:10] LABS: Hepatitis A Antibody IgM Non-Reactive (Non-Reactive); Hepatitis B Core IgM Non-Reactive (Non-Reactive); Hepatitis B Surface Antigen Non-Reactive (Non-Reactive); Hepatitis C IgG Antibody Non-Reactive (Non-Reactive)
[2019-09-29 19:13] LABS: Hemoglobin A1C 10.7 % (4.0-6.0)
--- NOTE | 2019-10-02 10:30 | P.PN ---
Progress Note - Text Progress Note Date: 10/02/19 5 meter walk test completed 09/29/19: 1. 5.17 sec 2. 5.14 sec 3. 4.56 sec Completed without difficulty, no chest pain, shortness of breath
--- NOTE | 2019-10-05 12:04 | P.VSCSTY ---
Greater Saphenous Vein Mapping This is bilateral lower extremity greater saphenous vein mapping. Date of service: 09/29/2019 Vein quality and ultrasound appearance: We see no endoluminal thrombus or wall changes. Vein size groin right : 7.7 x 6.5 groin left: 6.9 x 7.1 High thigh right: 6.1 x 5.3 high thigh left: 7.5 x 6.9 Mid thigh right: 5.1 x 4.0 mid thigh left: 4.1 x 4.0 Above-knee right: 5.0 x 4.1 above-knee left: 4.6 x 4.2 Below knee right: 4.5 x 4.4 below-knee left: 4.4 x 4.2 Mid calf right: 3.1 x 3.3 mid calf left: 2.9 x 2.8 Ankle right: 2.6 x 2.6 ankle left: 3.3 x 3.0 Impression: Usable bilateral greater saphenous vein. Upper thigh a bit large bilaterally..
== END | disposition home or self-care (01) ==
LOC: LABPAT 08:01
PROVIDERS: ATTEND Surgery
DX: E11.9 Type 2 diabetes mellitus without complications (principal); Z79.899 Other long term (current) drug therapy; Z11.59 Encounter for screening for other viral diseases
CPT/HCPCS: 94150; 80061; 80053; 80074; 84443; 83735; 85027; 85610; 85730; 81001; 87070; 87086; 83036; 71046; 93970; 93005; 36415; U0003; 87077; 87186

== ENCOUNTER 2019-10-03 05:49 | Inpatient (IN) | payer MEDICARE ==
[~2019-10-03 05:49] MED LIST changes: +ALBUMIN HUMAN 25% 50 ML IV ONE; +ALBUMIN HUMAN 5% 500 ML IVPB ONE; -ALPRAZolam 0.25 MG TAB PO PRN; -ALPRAZolam 0.5 MG TAB PO PRN; +ASPIRIN 325 MG TAB PO ONE; -ASPIRIN 325 MG TAB PO STA; +ATORVASTATIN 10 MG TAB PO ONE; -ATORVASTATIN 80 MG TAB PO STA; +CALCIUM CHLORIDE 100 MG/ML 10 ML SYRINGE IV ONE; +CHLORHEXIDINE GLUCONATE 15 ML CUP MUCOUS MEM ONE; +CLEVIDIPINE BUTYRATE 25 MG in EMPTY BAG 1 BAG IV ONE; +DEXTROSE 5% IN WATER 1,000 ML with POTASSIUM CHLORIDE 110 MEQ, MAGNESIUM SULFATE 16 MEQ... IV ONE; +DEXTROSE 5% IN WATER 1,000 ML with POTASSIUM CHLORIDE 25 MEQ, SODIUM CHLORIDE 2.5MEQ/ML... IRRIGATION ONE; +HEPARIN SODIUM 1,000 UN/ML (10ML VL) IV ONE; +HEPARIN SODIUM,PORCINE 5,000 UNIT in SODIUM CHLORIDE 0.9% 500 ML 500 ML IV ONE; +INSULIN REGULAR 100 UNIT in SODIUM CHLORIDE 0.9% 100 ML IV ONE; +LACTATED RINGERS 1,000 ML IV ONE; +MAGNESIUM SULFATE MG 500 MG/ML IV ONE; +MANNITOL 25% 12.5 GM/50 ML VIAL IV ONE; +METOPROLOL TARTRATE 12.5 MG TAB PO ONE; -NITROGLYCERIN SL TABS 0.4 MG TAB SUBLINGUAL PRN; +NITROGLYCERIN-D5W PMX 25 MG/250 ML BTL IV ONE; +NITROGLYCERIN-D5W PMX 50 MG in DEXTROSE/WATER 1 250ML.BAG IV ONE; +NOREPINEPHRINE 4 MG in SODIUM CHLORIDE 0.9% 250 ML IV ONE; +PAPAVERINE 360 MG in SODIUM CHLORIDE 0.9% 90 ML IV ONE; +PHENYLEPHRINE 10 MG/ML VIAL IV ONE; +PHENYLEPHRINE 40 MG in SODIUM CHLORIDE 0.9% 250 ML IV ONE; +PROTAMINE SULFATE 10 MG/ML 25 ML VIAL IV ONE; +PROTAMINE SULFATE 250 MG in EMPTY BAG 1 BAG IV ONE; +SODIUM BICARB 8.4% 50 ML SYR (1 MEQ/ML) IV ONE; +SODIUM CHLORIDE 0.9% 1,000 ML IV ONE; -SODIUM CHLORIDE 0.9% 1,000 ML in EMPTY BAG 1 BAG IV ONE; +TRANEXAMIC ACID 2,000 MG in SODIUM CHLORIDE 0.9% 80 ML IV ONE; +VANCOMYCIN 1,000 MG VIAL MISCELLANE ONE; +ceFAZolin 1,000 MG in SODIUM CHLORIDE 0.9% IRRIGATIO 1,000 ML IRRIGATION ONE; +ceFAZolin 2,000 MG in SODIUM CHLORIDE 0.9% 30 ML IVPB ONE; +propofoL 1,000 MG/100 ML VIAL IV ONE
[2019-10-03 06:29] LABS: Glucose,Whole Blood 338 mg/dL (75-99)
[2019-10-03] MEDS ORDERED: LACTATED RINGERS 1,000 ML IV SCH (06:31)
[2019-10-03] MEDS ORDERED: MIDAZOLAM 2 MG/2 ML VIAL IV PRN (06:31)
[2019-10-03] MEDS ORDERED: INSULIN ASPART (NovoLOG) 100 UNIT/ML VIAL SQ ONE (06:53)
[2019-10-03] MEDS ORDERED: LIDOCAINE 2% SYG (PF) 100 MG/5 ML ONE (07:56)
[2019-10-03] MEDS ORDERED: VECURONIUM 10 MG VIAL IV ONE (07:56)
[2019-10-03] MEDS ORDERED: PROPOFOL 10 MG/ML 20 ML VIAL IV ONE (07:56)
[2019-10-03] MEDS ORDERED: SODIUM CHLORIDE 0.9% 250 ML BAG ONE (07:56)
[2019-10-03] MEDS ORDERED: HEPARIN SODIUM,PORCINE 10,000 UNIT/ML 1 ML VIAL ONE (07:56)
[2019-10-03] MEDS ORDERED: MILRINONE-D5W PMX 20 MG/100 ML BAG IV ONE (07:56)
[2019-10-03] MEDS ORDERED: fentaNYL (PF) 50 MCG/ML 50 ML VIAL ONE (07:56)
[2019-10-03] MEDS ORDERED: SODIUM CHLORIDE 0.9% IRRIG 1,000 ML BTL IRRIGATION ONE (07:56)
[2019-10-03] MEDS ORDERED: PROTAMINE SULFATE 10 MG/ML 25 ML VIAL IV ONE (07:56)
[2019-10-03] MEDS ORDERED: MAGNESIUM SULFATE 4 MEQ/ML 10ML VIAL ONE (07:56)
[2019-10-03] MEDS ORDERED: MIDAZOLAM 2 MG/2 ML VIAL ONE (07:56)
[2019-10-03] MEDS ORDERED: ELECTROLYTE-R (PH 7.4) 1,000 ML IV.SOLN IV ONE (07:56)
[2019-10-03] MEDS ORDERED: TRANEXAMIC ACID 1,000 MG/10 ML VIAL ONE (07:56)
[2019-10-03] MEDS ORDERED: fentaNYL (PF) 50 MCG/ML 2 ML AMP ONE (07:56)
[2019-10-03] MEDS ORDERED: INSULIN REGULAR 100 UNIT/ML VIAL ONE (07:56)
[2019-10-03 08:50] LABS: ABG Hematocrit 36 % (34.0-46.0); ABG Oxygen Saturation 99.9 % (94-97)
[2019-10-03 10:18] LABS: ABG Hematocrit 36 % (34.0-46.0); ABG Oxygen Saturation 98.7 % (94-97)
[2019-10-03 11:10] LABS: ABG Hematocrit 25 % (34.0-46.0)
[2019-10-03 11:53] LABS: ABG Oxygen Saturation 99.7 % (94-97)
[2019-10-03 13:00] LABS: ABG Oxygen Saturation 99.8 % (94-97)
[2019-10-03 14:22] LABS: ABG Hematocrit 25 % (34.0-46.0); ABG Oxygen Saturation 99.6 % (94-97)
[2019-10-03 14:44] LABS: ABG PCO2 39 mmHg (35-45); ABG PH 7.33 (7.35-7.45); ABG PO2 >420 mmHg (83-108)
[2019-10-03 14:45] LABS: ABG Glucose Whole Blood 267 mg/dL (75-99); ABG HCO3 21 mmol/L (21-25); ABG Ionized Calcium 5.2 mg/dL (4.5-5.3); ABG Lactic Acid Whole Blood 1.8 mmol/L (0.5-1.6); ABG Potassium Whole Blood 3.7 mmol/L (3.4-4.5); ABG Sodium Whole Blood 135 mmol/L (135-146); ABG TCO2 22 mmol/L (19-24)
[2019-10-03 14:47] LABS: ABG Base Excess 5.1 mmol/L; ABG Glucose Whole Blood 208 mg/dL (75-99); ABG HCO3 22 mmol/L (21-25); ABG Ionized Calcium 5.1 mg/dL (4.5-5.3); ABG Lactic Acid Whole Blood 1.5 mmol/L (0.5-1.6); ABG PCO2 45 mmHg (35-45); ABG PH 7.28 (7.35-7.45); ABG PO2 152 mmHg (83-108); ABG Potassium Whole Blood 3.5 mmol/L (3.4-4.5); ABG Sodium Whole Blood 137 mmol/L (135-146); ABG TCO2 23 mmol/L (19-24)
[2019-10-03 14:48] LABS: ABG PCO2 36 mmHg (35-45); ABG PH 7.42 (7.35-7.45)
[2019-10-03 14:49] LABS: ABG Base Excess 0.8 mmol/L; ABG Glucose Whole Blood 165 mg/dL (75-99); ABG HCO3 23 mmol/L (21-25); ABG Ionized Calcium 4.2 mg/dL (4.5-5.3); ABG Lactic Acid Whole Blood 1.8 mmol/L (0.5-1.6); ABG PO2 >420 mmHg (83-108); ABG Potassium Whole Blood 3.3 mmol/L (3.4-4.5); ABG Sodium Whole Blood 134 mmol/L (135-146); ABG TCO2 25 mmol/L (19-24)
[2019-10-03 14:50] LABS: ABG Base Excess 1.8 mmol/L; ABG HCO3 23 mmol/L (21-25); ABG PCO2 39 mmHg (35-45); ABG PH 7.38 (7.35-7.45); ABG PO2 315 mmHg (83-108); ABG Potassium Whole Blood 4.4 mmol/L (3.4-4.5); ABG Sodium Whole Blood 132 mmol/L (135-146); ABG TCO2 24 mmol/L (19-24)
[2019-10-03 14:51] LABS: ABG Glucose Whole Blood 259 mg/dL (75-99); ABG Hematocrit 24 % (34.0-46.0); ABG Ionized Calcium 4.4 mg/dL (4.5-5.3)
[2019-10-03 14:52] LABS: ABG Base Excess 2.3 mmol/L; ABG Glucose Whole Blood 222 mg/dL (75-99); ABG HCO3 23 mmol/L (21-25); ABG PCO2 42 mmHg (35-45); ABG PH 7.34 (7.35-7.45); ABG PO2 315 mmHg (83-108); ABG Potassium Whole Blood 4.1 mmol/L (3.4-4.5); ABG Sodium Whole Blood 135 mmol/L (135-146); ABG TCO2 24 mmol/L (19-24)
[2019-10-03 14:53] LABS: ABG Hematocrit 22 % (34.0-46.0); ABG Ionized Calcium 4.5 mg/dL (4.5-5.3); ABG Lactic Acid Whole Blood 2.8 mmol/L (0.5-1.6)
[2019-10-03 14:54] LABS: ABG Base Excess 2.6 mmol/L; ABG Glucose Whole Blood 184 mg/dL (75-99); ABG HCO3 23 mmol/L (21-25); ABG Lactic Acid Whole Blood 1.8 mmol/L (0.5-1.6); ABG PCO2 43 mmHg (35-45); ABG PH 7.34 (7.35-7.45); ABG PO2 366 mmHg (83-108); ABG Potassium Whole Blood 3.3 mmol/L (3.4-4.5); ABG Sodium Whole Blood 139 mmol/L (135-146); ABG TCO2 24 mmol/L (19-24)
[2019-10-03 14:55] LABS: ABG Ionized Calcium 4.6 mg/dL (4.5-5.3)
[2019-10-03] MEDS ORDERED: IPRATROPIUM-ALBUTEROL 3 ML NEB INHALATION PRN (15:05)
[2019-10-03] MEDS ORDERED: NITROGLYCERIN-D5W PMX 50 MG in DEXTROSE/WATER 1 250ML.BAG IV SCH (15:05)
[2019-10-03] MEDS ORDERED: Magnesium Replacement Protocol 1 EACH MISC MISCELLANE PRN (15:05)
[2019-10-03] MEDS ORDERED: BENZOCAINE/MENTHOL LOZENG 1 EACH LOZENGE MUCOUS MEM PRN (15:05)
[2019-10-03] MEDS ORDERED: AMIODARONE 360 MG in DEXTROSE 5% IN WATER 200 ML IV PRN ×2 (15:05)
[2019-10-03] MEDS ORDERED: Potassium Replacement Protocol 1 EACH MISC MISCELLANE PRN (15:05)
[2019-10-03] MEDS ORDERED: METOCLOPRAMIDE 5 MG/ML 2 ML VIAL IVP PRN (15:05)
[2019-10-03] MEDS ORDERED: DEXTROSE 5% IN WATER 100 ML with AMIODARONE 150 MG IV PRN (15:05)
[2019-10-03] MEDS ORDERED: CALCIUM GLUCONATE 2 GM in SODIUM CHLORIDE 0.9% 100 ML IVPB PRN (15:05)
[2019-10-03] MEDS ORDERED: Phosphorus Replacement Protoco 1 EACH MISC MISCELLANE PRN (15:05)
[2019-10-03] MEDS ORDERED: AMIODARONE 300 MG in DEXTROSE 5% IN WATER 250 ML IV PRN ×2 (15:05)
[2019-10-03] MEDS ORDERED: MORPHINE SULFATE 2 MG/ML SYRINGE IVP PRN (15:05)
[2019-10-03] MEDS ORDERED: hydrALAZINE HCL 20 MG/ML 1 ML VIAL IVP PRN (15:05)
[2019-10-03 15:11] LABS: Glucose,Whole Blood 161 mg/dL (75-99)
--- NOTE | 2019-10-03 15:40 | XR ---
EXAMINATION TYPE: XR chest 1V portable DATE OF EXAM: 10/03/2019 COMPARISON: 09/29/2019 HISTORY: Postop CABG TECHNIQUE: Single frontal view of the chest is obtained. FINDINGS: ET tube is low in position approximately 1 cm above the yobany. NG tube noted there is pos toperative change. There is Marblemount-Josr catheter with the tip overlying the proximal pulmonary outflow tract. Bilateral chest tubes are seen. No sizable pneumothorax. Bilateral consolidation and small lef t effusion. IMPRESSION: 1. Postoperative change. ET tube is only 1 cm above the yobany correlate clinically. 2. Bilateral consolidation and small left effusion. 3. No sizable pneumothorax.
[2019-10-03 15:48] LABS: ABG Base Excess -1.7 mmol/L; ABG HCO3 25 mmol/L (21-25); ABG Oxygen Saturation 99.7 % (94-97); ABG PCO2 51 mmHg (35-45); ABG PO2 329 mmHg (83-108); ABG TCO2 26 mmol/L (19-24); Allen Test Performed? Yes
[2019-10-03] MEDS ORDERED: IPRATROPIUM-ALBUTEROL 3 ML NEB INHALATION SCH (16:00)
[2019-10-03 16:01] LABS: Anisocytosis Slight; Basophils % (A) 0 %; Eosinophils # (A) 0.1 k/uL (0-0.7); Eosinophils % (A) 1 %; HCT 26.4 % (34.0-46.0); Lymphocytes # (A) 1.7 k/uL (1.0-4.8); Lymphocytes % (A) 14 %; MCH 29.1 pg (25.0-35.0); Mean Platelet Volume 7.9; Monocytes # (A) 0.8 k/uL (0-1.0); Monocytes % (A) 6 %; Neutrophils # (A) 9.6 k/uL (1.3-7.7); Neutrophils % (A) 78 %; Platelet Count 146 k/uL (150-450); RDW 16.9 % (11.5-15.5); WBC 12.3 k/uL (3.8-10.6)
[2019-10-03 16:02] LABS: Glucose,Whole Blood 140 mg/dL (75-99)
[2019-10-03] MEDS: SODIUM CHLORIDE 0.9% 1,000 ML IV SCH (16:02)
[2019-10-03] MEDS: MILRINONE-D5W PMX 20 MG in DEXTROSE/WATER 1 100ML.BAG IV SCH (16:03)
[2019-10-03 16:11] LABS: INR 1.2 (<1.2); Partial Thromboplastin Time 28.8 sec (22.0-30.0); Prothrombin Time 11.9 sec (9.0-12.0)
[2019-10-03 16:16] LABS: Albumin 3.1 g/dL (3.5-5.0); Calcium 8.2 mg/dL (8.4-10.2); Magnesium 2.6 mg/dL (1.6-2.3); Potassium 3.8 mmol/L (3.5-5.1); Total Bilirubin 0.5 mg/dL (0.2-1.3); Total Protein 5.3 g/dL (6.3-8.2)
[2019-10-03 16:27] LABS: HGB 8.7 gm/dL (11.4-16.0)
[2019-10-03] MEDS: NOREPINEPHRINE 4 MG in SODIUM CHLORIDE 0.9% 250 ML IV SCH (16:39)
[2019-10-03] MEDS: INSULIN REGULAR 100 UNIT in SODIUM CHLORIDE 0.9% 100 ML IV SCH (16:41)
[2019-10-03 17:22] LABS: Glucose,Whole Blood 143 mg/dL (75-99)
--- NOTE | 2019-10-03 17:31 | P.CNPUL ---
History of Present Illness Consult date: 10/03/19 Requesting physician: Madai Sawant Reason for consult: other Chief complaint: Coronary artery disease, mitral valve regurgitation, s/p CABG, MVR History of present illness: 68-year-old of Dr. Moore, with past medical history of coronary artery disease with previous stenting of the LAD in 2017, hypertension, hyperlipidemia, insulin-dependent diabetes mellitus, morbid obesity, stage III chronic kidney disease, pulmonary hypertension, family history of hypertension and diabetes. Patient was hospitalized last November 2018 when she presented with complaints of severe, constant, sharp chest pain with left arm radiation. Patient had echocardiogram that showed a moderately impaired LV function with EF of 35-40%, mild aortic regurgitation, mild mitral annular calcification and moderate to severe mitral regurgitation. There was evidence of severe pulmonary hypertension and moderate tricuspid regurg. Patient went on to have cardiac catheterization that showed LAD stenosis of 70% in the proximal portion. YULIANA showed EF of 35-40%, severe mitral regurgitation, with a dilated annulus and poor coaptation of the mitral leaflets and moderate to severe tricuspid regurgitation. She was referred to CT surgery for surgical evaluation, and it took her several months to obtain dental clearance, and optimize her diabetes. Today on 10/03/2019 patient had a one-vessel bypass with REYES to LAD, and mitral valve repair, his occlusion of the left atrial appendage. She is seen in the postoperative period in the intensive care unit, she is intubated, sedated on mechanical ventilator, current vent settings assist control mode with a rate of 16, tidal vital 350, FiO2 50% and PEEP of 8. Current drips include 0.9 normal saline at a rate of 50, Primacor at 0.3 mics per kilo per minute, levo fed at 0.04 mics per kilo per minute, insulin drip, and Diprivan at 20 mics per kilo per minute. PA pressure is 48/27, CVP 13, cardiac output and index are 4.6 and 2.6 respectively, AV wires in place, patient is on VVI Mode and is currently pacing at 100%. 2 mediastinal chest tubes with 130 mL of sanguinous output, left pleural and right pleural with 120 and 50 ML of sanguinous output respectively. Postop blood work shows a white blood cell count of 12.3, hemoglobin of 8.7, sodium is 136, the rest of electrolytes are within normal limits, BUN 62 and creatinine is 1.74. Review of Systems All systems: negative Constitutional: Denies chills, Denies fever Eyes: denies blurred vision, denies pain Ears, nose, mouth and throat: Denies headache, Denies sore throat Cardiovascular: Reports chest pain, Denies shortness of breath Respiratory: Denies cough Gastrointestinal: Denies abdominal pain, Denies diarrhea, Denies nausea, Denies vomiting Genitourinary: Denies dysuria, Denies hematuria Musculoskeletal: Denies myalgias Integumentary: Denies pruritus, Denies rash Neurological: Denies numbness, Denies weakness Psychiatric: Denies anxiety, Denies depression Endocrine: Denies fatigue, Denies weight change Past Medical History Past Medical History: Coronary Artery Disease (CAD), Chest Pain / Angina, Heart Failure, Diabetes Mellitus, Eye Disorder, GERD/Reflux, Hyperlipidemia, Hypertension, Myocardial Infarction (OR), Renal Disease, Sleep Apnea/CPAP/BIPAP, Thyroid Disorder Additional Past Medical History / Comment(s): Right cataract, Not using CPAP, admission in June for CHF exacerbation Last Myocardial Infarction Date:: 03/31/2015 History of Any Multi-Drug Resistant Organisms: None Reported Past Surgical History: Breast Surgery, Heart Catheterization, Heart Catheterization With Stent Additional Past Surgical History / Comment(s): Left breast bx-neg, buttocks sx- pt stated:" they told me I had gangrene and had sx to remove", lt cataract, several cardiac cath's.-most recent 2018 Past Anesthesia/Blood Transfusion Reactions: No Reported Reaction Date of Last Stent Placement:: 2016 Smoking Status: Never smoker - Past Family History Father Family Medical History: Unable to Obtain Additional Family Medical History / Comment(s): Father from motor vehicle accident Mother Family Medical History: Diabetes Mellitus, Hypertension Medications and Allergies Home Medications Medication Instructions Recorded Confirmed Type Aspirin 81 mg PO DAILY #1 chewable 06/05/15 09/29/19 Rx Multivitamins, Thera [Multivitamin 1 tab PO DAILY 07/02/15 09/29/19 History (formulary)] Atorvastatin [Lipitor] 80 mg PO HS 08/01/15 09/29/19 History Isosorbide Mononitrate ER [Imdur] 30 mg PO DAILY 08/01/15 09/29/19 History Levothyroxine Sodium [Synthroid] 75 mcg PO DAILY 05/01/16 09/29/19 History Citalopram Hydrobromide [CeleXA] 20 mg PO DAILY tab 08/14/16 09/29/19 Rx Meclizine [Antivert] 12.5 mg PO BID PRN 11/18/16 09/29/19 History Pantoprazole [Protonix] 40 mg PO DAILY 07/25/17 09/29/19 History Allopurinol [Zyloprim] 300 mg PO DAILY 11/26/18 09/29/19 History Carvedilol [Coreg] 6.25 mg PO BID 11/26/18 09/29/19 History Nitroglycerin Sl Tabs [Nitrostat] 0.4 mg SUBLINGUAL Q5M PRN 11/26/18 09/29/19 History Ferrous Sulfate [Iron (65 MG 325 mg PO BID 06/29/19 09/29/19 History Elemental)] INSULIN LISPRO (HumaLOG) [humaLOG] 6 units SQ BID 06/29/19 09/29/19 History Magnesium Oxide [Mag-Ox] 400 mg PO DAILY 06/29/19 09/29/19 History Furosemide [Lasix] 60 mg PO DAILY #60 tablet 07/01/19 09/29/19 Rx Spironolactone [Aldactone] 25 mg PO DAILY #30 tablet 07/01/19 09/29/19 Rx Insulin Detemir (Levemir) [Levemir] 22 unit SQ BID 09/29/19 10/03/19 History Metolazone [Zaroxolyn] 2.5 mg PO DAILY 09/29/19 09/29/19 History amLODIPine [Norvasc] 10 mg PO DAILY 09/29/19 09/29/19 History Allergies Allergy/AdvReac Type Severity Reaction Status Date / Time No Known Allergies Allergy Verified 10/03/19 06:31 Physical Exam Vitals: Vital Signs Temp Pulse Pulse Resp BP BP Pulse Ox 10/03/19 17:00 80 15 97 10/03/19 16:50 80 16 96 10/03/19 16:40 80 16 96 10/03/19 16:30 80 16 97 10/03/19 16:20 80 16 97 10/03/19 16:10 80 16 98 10/03/19 16:00 79 14 99 10/03/19 15:50 79 18 99 10/03/19 15:44 79 10/03/19 15:40 80 16 99 10/03/19 15:30 16 100 10/03/19 15:20 80 16 100 10/03/19 15:10 80 16 100 10/03/19 15:00 94.8 F L 78 16 100 10/03/19 14:54 19 10/03/19 06:11 97 F L 79 16 145/83 147/78 97 Intake and Output 10/03/19 10/03/19 10/03/19 06:59 14:59 22:59 Intake Total 33 Output Total 2300 Balance -2267 Intake: IV 33 Output: Urine 800 Estimated Blood Loss 1500 Other: Weight 82.4 kg ABP, PAP, CO, CI - Last 8 Hours Arterial Blood Pressure 108/48 Arterial Blood Pressure 105/47 Arterial Blood Pressure 104/46 Arterial Blood Pressure 111/47 Arterial Blood Pressure 115/50 Arterial Blood Pressure 116/49 Arterial Blood Pressure 126/51 Arterial Blood Pressure 116/48 Arterial Blood Pressure 100/46 Arterial Blood Pressure 97/39 Arterial Blood Pressure 128/50 Arterial Blood Pressure 98/42 Arterial Blood Pressure 101/42 Pulmonary Artery Pressure 46/25 Pulmonary Artery Pressure 48/25 Pulmonary Artery Pressure 48/26 Pulmonary Artery Pressure 49/26 Pulmonary Artery Pressure 47/25 Pulmonary Artery Pressure 49/26 Pulmonary Artery Pressure 51/27 Pulmonary Artery Pressure 50/26 Pulmonary Artery Pressure 50/27 Pulmonary Artery Pressure 43/20 Pulmonary Artery Pressure 53/23 Pulmonary Artery Pressure 49/23 Pulmonary Artery Pressure 48/23 Cardiac Output 4.6 Cardiac Output 4.6 Cardiac Output 4.6 Cardiac Output 6 Cardiac Output 6 Cardiac Output 6 Cardiac Output 6 Cardiac Output 6 Cardiac Output 15.6 Cardiac Output 15.6 Cardiac Index 2.6 Cardiac Index 2.6 Cardiac Index 2.6 Cardiac Index 3.3 Cardiac Index 3.3 Cardiac Index 3.3 Cardiac Index 3.3 Cardiac Index 3.3 Cardiac Index 8.7 Cardiac Index 8.7 GENERAL EXAM: Sedated, intubated, 68-year-old female on assist-control mode of ventilation comfortable in no apparent distress. HEAD: Normocephalic/atraumatic. EYES: Normal reaction of pupils, equal size. Conjunctiva pink, sclera white. NOSE: Clear with pink turbinates. THROAT: No erythema or exudates. NECK: No masses, no JVD, no thyroid enlargement, no adenopathy. CHEST: No chest wall deformity. Symmetrical expansion. Midsternal incision is clean dry and intact, 2 mediastinal right and left pleural chest tubes connected to Pleur-evac's with no evidence of air leak, there is 130 out of the mediastinal's, 120 on the left pleural and 50 ML of sanguinous output in the right pleural chest tube. AV wires connected to an external pacemaker with the backup rate, VVI 80, currently pacing at 100% LUNGS: Equal air entry with no crackles, wheeze, rhonchi or dullness. CVS: Regular rate and rhythm, normal S1 and S2, no gallops, no murmurs, no rubs ABDOMEN: Soft, nontender. No hepatosplenomegaly, normal bowel sounds, no guarding or rigidity. EXTREMITIES: No clubbing, no edema, no cyanosis, 2+ pulses and upper and lower extremities. MUSCULOSKELETAL: Muscle strength and tone normal. SPINE: No scoliosis or deformity SKIN: No rashes CENTRAL NERVOUS SYSTEM: Sedated. No focal deficits, tone is normal in all 4 extremities. Results - Laboratory Findings CBC and BMP: 10/03/19 15:08 10/03/19 15:08 ABG ABG pH 7.30 (7.35-7.45) L 10/03/19 15:46 ABG pCO2 51 mmHg (35-45) H 10/03/19 15:46 ABG pO2 329 mmHg (83-108) H 10/03/19 15:46 ABG O2 Saturation 99.7 % (94-97) H 10/03/19 15:46 PT/INR, D-dimer PT 11.9 sec (9.0-12.0) 10/03/19 15:08 INR 1.2 (<1.2) H 10/03/19 15:08 Abnormal lab findings: Abnormal Labs 09/29/19 10/03/19 10/03/19 09:00 : 08:53 WBC RBC Hgb Hct RDW Plt Count Neutrophils # INR ABG pH 7.33 L ABG pCO2 ABG pO2 >420 H ABG Total CO2 ABG O2 Saturation 99.9 H ABG Hematocrit ABG Sodium ABG Potassium ABG Ionized Calcium ABG Glucose 267 H ABG Lactic Acid 1.8 H Hemoglobin Sodium BUN Creatinine Glucose POC Glucose (mg/dL) 338 H Calcium Magnesium AST Total Protein Albumin Arterial Blood Potassium Arterial Blood Glucose 267 H Crossmatch See Detail 10/03/19 10/03/19 10/03/19 10:21 11:13 11:56 WBC RBC Hgb Hct RDW Plt Count Neutrophils # INR ABG pH 7.28 L ABG pCO2 ABG pO2 152 H >420 H 315 H ABG Total CO2 25 H ABG O2 Saturation 98.7 H 100.0 H 99.7 H ABG Hematocrit 25 L 24 L ABG Sodium 134 L 132 L ABG Potassium 3.3 L ABG Ionized Calcium 4.2 L 4.4 L ABG Glucose 208 H 165 H 259 H ABG Lactic Acid 1.8 H 2.0 H Hemoglobin 8.0 L 7.8 L Sodium BUN Creatinine Glucose POC Glucose (mg/dL) Calcium Magnesium AST Total Protein Albumin Arterial Blood Potassium 3.3 L Arterial Blood Glucose 208 H 165 H 259 H Crossmatch 10/03/19 10/03/19 10/03/19 13:03 14:25 15:08 WBC 12.3 H RBC 3.00 L Hgb 8.7 L D Hct 26.4 L RDW 16.9 H Plt Count 146 L Neutrophils # 9.6 H INR ABG pH 7.34 L 7.34 L ABG pCO2 ABG pO2 315 H 366 H ABG Total CO2 ABG O2 Saturation 99.8 H 99.6 H ABG Hematocrit 22 L 25 L ABG Sodium ABG Potassium 3.3 L ABG Ionized Calcium ABG Glucose 222 H 184 H ABG Lactic Acid 2.8 H* 1.8 H Hemoglobin 7.3 L 8.3 L Sodium BUN Creatinine Glucose POC Glucose (mg/dL) Calcium Magnesium AST Total Protein Albumin Arterial Blood Potassium 3.3 L Arterial Blood Glucose 222 H 184 H Crossmatch 10/03/19 10/03/19 10/03/19 15:08 15:08 15:09 WBC RBC Hgb Hct RDW Plt Count Neutrophils # INR 1.2 H ABG pH ABG pCO2 ABG pO2 ABG Total CO2 ABG O2 Saturation ABG Hematocrit ABG Sodium ABG Potassium ABG Ionized Calcium ABG Glucose ABG Lactic Acid Hemoglobin Sodium 136 L BUN 62 H Creatinine 1.74 H Glucose 146 H POC Glucose (mg/dL) 161 H Calcium 8.2 L Magnesium 2.6 H AST 56 H Total Protein 5.3 L Albumin 3.1 L Arterial Blood Potassium Arterial Blood Glucose Crossmatch 10/03/19 10/03/19 15:46 16:00 WBC RBC Hgb Hct RDW Plt Count Neutrophils # INR ABG pH 7.30 L ABG pCO2 51 H ABG pO2 329 H ABG Total CO2 26 H ABG O2 Saturation 99.7 H ABG Hematocrit ABG Sodium ABG Potassium ABG Ionized Calcium ABG Glucose ABG Lactic Acid Hemoglobin Sodium BUN Creatinine Glucose POC Glucose (mg/dL) 140 H Calcium Magnesium AST Total Protein Albumin Arterial Blood Potassium Arterial Blood Glucose Crossmatch - Diagnostic Findings Chest x-ray: report reviewed, image reviewed Assessment and Plan Plan: Assessment: #1. Coronary artery disease, severe mitral regurgitation, status post 1 vessel bypass REYES to LAD, and mitral valve repair, left atrial appendage exclusion, postoperative day 0 #2. Routine mechanical ventilator management #3. Acute blood loss anemia, expected outcome of bypass and mitral valve repair surgery #4. Chronic kidney disease #5. Recent history of urinary tract infection, with urine culture positive for Klebsiella pneumonia treated with ciprofloxacin, currently on cefazolin #6. Normal preop spirometry with FEV1 of 92% of predicted #7. History of diabetes mellitus, poorly controlled #8. Hypertension #9. Hyperlipidemia #10. Previous stenting of the LAD 2017 #11. Ischemic cardiomyopathy with LV function of 35-40% #12. Pulmonary hypertension likely related to valvular heart disease #13. Family history of hypertension and diabetes Plan: We'll stop blood gases have been reviewed, FiO2 was cut back to 50%, no significant bleeding out of the chest tubes. Postop lab work has been noted, postoperative chest x-ray reviewed and showing bilateral consolidation and a small left pleural effusion, no pneumothorax. Continue weaning sedation, and once the patient is awake we'll proceed with spontaneous breathing trials and extubation. Continue close hemodynamic monitoring, continue breathing treatme nts, incentive spirometry the bedside, daily chest x-rays and labs. We'll closely follow with the CT surgery I performed a history & physical examination of the patient and discussed their management with my nurse practitioner, Ashlee Elaine. I reviewed the nurse practitioner's note and agree with the documented findings and plan of care. Lung sounds are positive for diminished breath sounds. The findings and the impression was discussed with the patient. I attest to the documentation by the nurse practitioner. Time with Patient: Greater than 30
[2019-10-03] MEDS: ACETAMINOPHEN IV (For NPO) 1,000 MG in EMPTY BAG 1 BAG IVPB SCH (17:35)
[2019-10-03] MEDS: FERROUS SULFATE 325 MG TAB PO SCH (17:36)
--- NOTE | 2019-10-03 17:51 | OP ---
OPERATIVE REPORT DATE OF SURGERY: 10/03/2019. SURGEON: Dr. Madai Sawant. ASSISTANTS: 1. KAYDEN Plummer. 2. KAYDEN Gonzales. PREOPERATIVE DIAGNOSES: 1. Single-vessel coronary artery disease. 2. Severe functional mitral valve regurgitation with moderate tricuspid valve regurgitation and heart failure. 3. Insulin-dependent diabetes. 4. Chronic kidney disease. 5. Hypertension. 6. Obstructive sleep apnea. POSTOPERATIVE DIAGNOSES: 1. Single-vessel coronary artery disease. 2. Severe functional mitral valve regurgitation with mild tricuspid valve regurgitation and heart failure and no dilated anulus. 3. Insulin-dependent diabetes. 4. Chronic kidney disease. 5. Hypertension. 6. Obstructive sleep apnea. PROCEDURE: 1. Single coronary artery bypass grafting using the left internal mammary artery to the left anterior descending artery. 2. Mitral valve repair using a reduction annuloplasty with a 28 mm Physio II ring. 3. Exclusion of the left atrial appendage using a 45 mm AtriClip. 4. Intraoperative graft flow measurements using the [place] system. 5. Intraoperative transesophageal echocardiogram and epiaortic scanning. INDICATION FOR SURGERY: The patient is a 68-year-old lady with an old anterior myocardial infarction and a stent to her LAD who has been, despite maximal medical therapy, with several hospitalizations for heart failure and severe functional mitral valve regurgitation. The patient took several months to achieve dental clearance and she was seen again and she had 2 further admissions for heart failure. Her risks were reasonable and for that reason, we offered a single-vessel bypass to her LAD in view of an in-stent restenosis as well as mitral valve repair, hoping for functional improvement. The STS risk was discussed with her and her . They understood it and agreed to proceed, understanding in particular risk of pacemaker in view of her left bundle branch block, dialysis in view of chronic kidney disease baseline, infection in view of moderately controlled diabetes, etc. PROCEDURE DESCRIPTION: With the patient in supine position, a right internal jugular [place]-Josr catheter and a left radial arterial line were placed. PA pressure was 50/25. Cardiac index was 2.1. Subsequently general endotracheal anesthesia was induced uneventfully. With that, PA pressure went even further down. Hinkle catheter was inserted. The chest, abdomen and both lower extremities were prepped and draped using ChloraPrep. Ioban was used to cover the skin. Transesophageal echocardiogram confirmed the preoperative finding of moderate to severe eccentric mitral valve regurgitation and central with anterior hypokinesia and dilated left ventricle. The right ventricle was not dilated and the tricuspid anulus was measured several times and was not above 3 cm. There was mild tricuspid valve regurgitation and no overt pulmonary hypertension and decision was made not to proceed with tricuspid valve repair in addition to the plan. Again, the chest, abdomen and lower extremities were prepped and draped using ChloraPrep. Ioban was used to cover the skin. The patient received 2 grams of cefazolin intravenously. Median sternotomy was performed and the bone was mildly osteoporotic. Bone seal was used. The left hemisternum was elevated and the left internal mammary artery was harvested in a somewhat skeletonized fashion. The left pleura was intentionally opened in this process and was drained with a 19-Ken[place] Kenn drain. The right pleura was inadvertently opened and also was drained with another 19-Kenyan Kenn drain. The patient was given 5000 units of heparin and the mammary artery was clipped distally and transected. It had an excellent pulsatile flow in it and was around 2 mm in diameter. Subsequently, mediastinal fat was transected between 2 ties and epiaortic scanning revealed some small plaque in the posterior aorta below the crossing of the right pulmonary artery, but nothing protruding and nothing beyond the crossing of the pulmonary artery. Pericardial cradle was created after opening the pericardium in an inverted T-fashion. Findings included a normal soft aorta and an enlarged heart. After systemic heparinization and after placement of respective pledgeted pursestrings, aortic cannulation in the proximal arch with a 21-Kenyan cannula, SVC direct cannulation with a right-angle 28-Kenyan cannula and IVC cannulation at the junction of the right atrium with a 30-Kenyan straight cannula were performed. Antegrade as well as retrograde cardioplegia catheters were placed. Cardiopulmonary bypass was initiated. The heart was enlarged and leftward rotated. We looked at the LAD and identified a soft spot in its mid aspect. Subsequently the aorta was clamped and myocardial protection was achieved with initial dose of 1 L of antegrade cold blood cardioplegia followed by 400 mL of retrograde cold blood cardioplegia. All subsequent doses were given retrograde at 15-minute intervals. We started the case by excluding the left atrial appendage using a 45 mm AtriClip deployed at its base. The second step was to perform the distal anastomosis between the left internal mammary artery and the mid to distal aspect of the left anterior descending artery which was opened. It was around 1.5 mm in diameter with a posterior plaque. We used Prolene 7-0 in continuous fashion. I used a 1 mm shunt that was removed before completing the anastomosis. The mammary veins were affixed to the epicardium on either side of the mammary artery using Prolene 6-0. We used the Mercedes mitral retractor. We had some adhesions between the right atrium and the pericardium that were sharply taken down. The interatrial groove was further developed with a Bovie. A standard transverse left atriotomy was performed and findings included a deeply situated mitral valve. We were able to pass 7 sutures of tie from 2-0 nonpledgeted, and most of them except for 2 sutures at the level of 7 p.m. and 8 p.m. all around the mitral anulus. The valve was measured at around 32 mm intertrigonal and anterior leaflet surface area, so I decided to reduce by 2 sizes and selected a 28 mm Physio II ring. All the sutures were passed symmetrically into the ring, which seated nicely. The needles were cut and the sutures tied using the Cor Knot device. Testing revealed a very satisfactory seal with a very trivial leak at the level of the posterior commissure. CO2 was flowing over the field as long as the left atrium was opened. The left atrium was closed using Prolene 4-0 pledgeted on each corner and meeting in the midline. Before completing the closure, de-airing maneuvers were done. The patient had been re- warmed and given 1 L of warm blood retrograde as we were closing the atriotomy. Several de-airing maneuvers were further performed, and with the head down and patient in Trendelenburg position and the aortic root vent on maximum, we unclamped the aorta. She regained a very slow idioventricular rhythm. There was evidence of third-degree AV block. De-airing took a while to achieve. After around 15 to 20 minutes of reperfusion, we had to stick the apex with an 18-gauge needle and the hole was oversewn with a pledgeted horizontal 6-0 Prolene. One bipolar ventricular pacing wire was driven via the inferior aspect of the right ventricle, and in view of persistent third- degree AV block we passed another ventricular bipolar wire over the anterior surface of the RV. The exit site was okay, but the entry site had some bleeding and again a pledgeted 6-0 Prolene was placed at that level. We were able eventually to wean off cardiopulmonary bypass with an initial half load of Primacor and 0.3 mcg/kg per minute and low-dose Levophed. YULIANA showed improved left ventricular function and a known anteroapical hypokinesia. There was no mitral valve regurgitation seen except for a very trivial jet. The tricuspid was also with trivial TR. With that, test-dose and full-dose protamine was given. Decannulation followed. The retrograde cardioplegia site required reinforcement with a running 4-0 Prolene and a pledgeted 4-0 Prolene. Two monopolar atrial pacing wires had been affixed to the free wall of the right atrium that we used for AV pacing. Hemodynamics showed a cardiac index of 2.4, PA pressure of 45/25. Two 19-Kenyan Kenn drains were placed substernally. Pericardial fat was approximated over the heart and the aorta. A groove was made in the left pleuropericardial fat to accommodate the mammary artery medial to the lung and away from the posterior sternal table. Medistim measurements showed excellent parameters for the left internal mammary artery graft with a flow of around 70 mL/minute, pulsatility index of 3 and diastolic filling of 70%, showing an excellent functioning graft. The sternum was closed using 5 [id number] pineal cables after interposing Fibrillar between the sternal edges. Thorough irrigation with cefazolin followed. The rest of the closure proceeded in layers. Skin glue was applied. Patient did not receive any blood bank products but received 500 mL of Cell Saver blood. She made around 800 mL of urine during bypass. She was transferred to the ICU AV paced at 80 with a PA pressure of 49/24, cardiac index of 2.5, mean arterial pressure of 65 on 0.3 mcg/minute of Primacor and low-dose Levophed. MMODL / IJN: [id number] /
[2019-10-03] MEDS: POTASSIUM CHLORIDE 10 MEQ in WATER FOR INJECTION 1 100ML.BAG IVPB SCH ×2 (17:59→19:07)
[2019-10-03 18:06] LABS: Anisocytosis Slight; HCT 27.1 % (34.0-46.0); HGB 8.6 gm/dL (11.4-16.0); MCH 27.6 pg (25.0-35.0); MCHC 31.9 g/dL (31.0-37.0); MCV 86.4 fL (80.0-100.0); Mean Platelet Volume 7.7; Platelet Count 156 k/uL (150-450); RBC 3.13 m/uL (3.80-5.40); RDW 17.3 % (11.5-15.5)
[2019-10-03 18:27] LABS: Glucose,Whole Blood 147 mg/dL (75-99)
[2019-10-03 18:33] LABS: Band Neutrophils % 6 %; Lymphocytes # (M) 1.95 k/uL (1.0-4.8); Metamyelocytes # (M) 0.13 k/uL (0); Metamyelocytes % 1 %; Monocytes # (M) 0.91 k/uL (0-1.0); Neutrophils % (M) 71 %; Nucleated Red Blood Cells 0 /100 WBC (0-0); Total Cells Counted 100
[2019-10-03] MEDS: ALBUMIN HUMAN 5% 250 ML in EMPTY BAG 1 BAG IVPB PRN ×2 (19:05→19:36)
[2019-10-03 19:11] LABS: Glucose,Whole Blood 161 mg/dL (75-99)
[2019-10-03] MEDS: IPRATROPIUM-ALBUTEROL 3 ML NEB INHALATION SCH ×2 (20:02)
[2019-10-03 20:06] LABS: Glucose,Whole Blood 168 mg/dL (75-99)
[2019-10-03 20:59] LABS: Glucose,Whole Blood 180 mg/dL (75-99)
[2019-10-03 22:04] LABS: Glucose,Whole Blood 190 mg/dL (75-99)
[2019-10-03 22:19] LABS: Calcium 8.2 mg/dL (8.4-10.2); Potassium 4.7 mmol/L (3.5-5.1)
[2019-10-03 22:22] LABS: Anisocytosis Slight; Basophils % (A) 0 %; Eosinophils # (A) 0.1 k/uL (0-0.7); Eosinophils % (A) 1 %; HCT 24.8 % (34.0-46.0); HGB 8.1 gm/dL (11.4-16.0); Lymphocytes # (A) 0.9 k/uL (1.0-4.8); Lymphocytes % (A) 8 %; MCH 28.7 pg (25.0-35.0); MCHC 32.6 g/dL (31.0-37.0); MCV 88.1 fL (80.0-100.0); Mean Platelet Volume 8.4; Monocytes # (A) 0.6 k/uL (0-1.0); Monocytes % (A) 5 %; Neutrophils # (A) 9.7 k/uL (1.3-7.7); Neutrophils % (A) 85 %; Platelet Count 164 k/uL (150-450); RBC 2.81 m/uL (3.80-5.40); WBC 11.3 k/uL (3.8-10.6)
[2019-10-03] MEDS: CLEVIDIPINE BUTYRATE 25 MG in EMPTY BAG 1 BAG IV SCH (22:26)
[2019-10-03] MEDS: HEPARIN SODIUM,PORCINE 5,000 UNIT/ML 1 ML VIAL SQ SCH (22:36)
[2019-10-03 23:07] LABS: Glucose,Whole Blood 205 mg/dL (75-99)
[2019-10-03 23:47] LABS: ABG Base Excess -2.3 mmol/L; ABG HCO3 24 mmol/L (21-25); ABG Oxygen Saturation 97.5 % (94-97); ABG PCO2 49 mmHg (35-45); ABG PO2 98 mmHg (83-108); ABG TCO2 26 mmol/L (19-24); Allen Test Performed? Yes
[2019-10-04] MEDS: ACETAMINOPHEN IV (For NPO) 1,000 MG in EMPTY BAG 1 BAG IVPB SCH (00:30)
[2019-10-04 00:31] LABS: Glucose,Whole Blood 196 mg/dL (75-99)
[2019-10-04] MEDS: MILRINONE-D5W PMX 20 MG in DEXTROSE/WATER 1 100ML.BAG IV SCH ×2 (00:43→17:00)
[2019-10-04 01:01] LABS: Glucose,Whole Blood 195 mg/dL (75-99)
[2019-10-04] MEDS: INSULIN REGULAR 100 UNIT in SODIUM CHLORIDE 0.9% 100 ML IV SCH ×2 (01:26→22:10)
[2019-10-04] MEDS ORDERED: HYDROcodone/APAP 5-325MG 1 EACH TAB PO PRN ×2 (01:49)
[2019-10-04 01:54] LABS: Glucose,Whole Blood 184 mg/dL (75-99)
[2019-10-04 02:55] LABS: Glucose,Whole Blood 192 mg/dL (75-99)
[2019-10-04 04:07] LABS: Glucose,Whole Blood 163 mg/dL (75-99)
[2019-10-04 04:26] LABS: ABG Base Excess -2.5 mmol/L; ABG HCO3 23 mmol/L (21-25); ABG Oxygen Saturation 98.6 % (94-97); ABG PCO2 44 mmHg (35-45); ABG PH 7.33 (7.35-7.45); ABG PO2 126 mmHg (83-108); ABG TCO2 25 mmol/L (19-24); Allen Test Performed? Yes
[2019-10-04 04:57] LABS: Anisocytosis Slight; Basophils % (A) 0 %; Eosinophils # (A) 0.1 k/uL (0-0.7); Eosinophils % (A) 1 %; HGB 8.2 gm/dL (11.4-16.0); Lymphocytes # (A) 1.1 k/uL (1.0-4.8); Lymphocytes % (A) 9 %; MCH 28.9 pg (25.0-35.0); MCHC 32.8 g/dL (31.0-37.0); MCV 88.1 fL (80.0-100.0); Mean Platelet Volume 8.9; Monocytes # (A) 0.6 k/uL (0-1.0); Monocytes % (A) 5 %; Neutrophils # (A) 10.2 k/uL (1.3-7.7); Neutrophils % (A) 85 %; Platelet Count 160 k/uL (150-450); RBC 2.83 m/uL (3.80-5.40); RDW 17.4 % (11.5-15.5)
[2019-10-04 05:06] LABS: Glucose,Whole Blood 145 mg/dL (75-99)
[2019-10-04 05:18] LABS: Ionized Calcium 5.1 mg/dL (4.5-5.3)
[2019-10-04 05:26] LABS: Albumin 3.6 g/dL (3.5-5.0); Calcium 8.6 mg/dL (8.4-10.2); Magnesium 2.3 mg/dL (1.6-2.3); Total Bilirubin 0.4 mg/dL (0.2-1.3); Total Protein 5.7 g/dL (6.3-8.2)
[2019-10-04] MEDS: ONDANSETRON 4 MG/2 ML VIAL IVP PRN ×2 (06:03→10:38)
[2019-10-04 06:08] LABS: Glucose,Whole Blood 143 mg/dL (75-99)
[2019-10-04 06:56] LABS: Glucose,Whole Blood 135 mg/dL (75-99)
[2019-10-04] MEDS ORDERED: ACETAMINOPHEN IV (For NPO) 1,000 MG in EMPTY BAG 1 BAG IVPB STA ×2 (07:45→14:46)
[2019-10-04 08:04] LABS: Glucose,Whole Blood 133 mg/dL (75-99)
[2019-10-04] MEDS: IPRATROPIUM-ALBUTEROL 3 ML NEB INHALATION SCH ×4 (08:20→20:05)
[2019-10-04] MEDS: NOREPINEPHRINE 4 MG in SODIUM CHLORIDE 0.9% 250 ML IV SCH (08:45)
[2019-10-04] MEDS ORDERED: MAGNESIUM HYDROXIDE 2,400 MG/10 ML CUP PO PRN (09:00)
[2019-10-04] MEDS ORDERED: bisacodyL 10 MG SUPP RECTAL PRN (09:00)
[2019-10-04] MEDS ORDERED: PANTOPRAZOLE 40 MG/10 ML VIAL IVP SCH (09:00)
[2019-10-04 09:17] LABS: Glucose,Whole Blood 126 mg/dL (75-99)
[2019-10-04] MEDS: HEPARIN SODIUM,PORCINE 5,000 UNIT/ML 1 ML VIAL SQ SCH ×3 (09:46→23:45)
--- NOTE | 2019-10-04 10:15 | P.PN ---
Subjective Progress Note Date: 10/04/19 Principal diagnosis: Single vessel coronary artery disease, severe functional mitral valve regurgitation with mild tricuspid valve regurgitation and heart failure. Past medical history significant for hypertension, coronary artery disease with previous stent placement to her proximal left anterior descending coronary artery in 2017, hyperlipidemia, insulin-dependent diabetes mellitus poorly controlled with a preoperative hemoglobin A1c of 10.7%, morbid obesity, stage III chronic kidney disease with a baseline creatinine of 1.5, obstructive sleep apnea, pulmonary hypertension and preoperative urinary tract infection of Klebsiella pneumoniae which was treated. POD #1 single coronary artery bypass grafting using the left internal mammary artery to left anterior descending coronary artery, mitral valve repair using a reduction annuloplasty with a 28 mm physio-II ring, exclusion of the left atrial appendage using a 45 mm Atriclip, intraoperative graft flow measurements using the Preact sytem, intraoperative epi-aortic scanning and transesophageal echocardiogram. Postoperative acute blood loss anemia, an expected outcome secondary to cardiopulmonary bypass and hemodilution. The patient was seen today 10/04/2019 at her bedside in the intensive care unit. She is awake, alert and oriented [address]. The patient is hemodynamically stable and is currently on Primacor drip at 0.3 mcg/kg/m, right IJ Brawley-Josr catheter remains in place with current hemodynamics showing a cardiac output of 5.5, cardiac index 3.1, PA pressures 41/15 and CVP of 8 mmHg. She was successfully extubated this morning at 4:35 AM and is currently on 6 L high flow oxygen with oxygen saturation is 98%. She is achieving around 500 mL on her incentive spirometry with much encouragement. Currently she is complaining of some surgical type pain to her chest tube insertion sites and with taking a deep breath, although denies any complaints of shortness of breath at this time. Atrial and ventricular epicardial pacemaker wires are in place and connected to a bedside pacemaker generator with a DDD of 80 bpm. Underlying pacemaker rhythm is normal sinus rhythm with a first-degree block and bundle branch block with a heart rate of 77 BPM. Mediastinal, right and left pleural chest tubes remain in place to low continuous wall suction -20 cm H2O. No air leak is present. Draining thin serosanguineous drainage with 130 mL output in the last 8 hours and 300 mL output since surgery from her mediastinal chest tubes, 195 mL output in the last 8 hours and 380 mL output since surgery from her left pleural chest tube and 40 mL output in the last 8 hours and 110 mL output since surgery from her right pleural chest tube. Objective - Vital Signs Vital signs: Vital Signs Temp 97.9 F 10/04/19 08:00 Pulse 73 10/04/19 09:00 Resp 24 10/04/19 09:00 BP 107/53 10/04/19 09:00 Pulse Ox 98 10/04/19 09:00 Intake & Output 10/03/19 10/04/19 10/04/19 18:59 06:59 18:59 Intake Total 838.166 4857.819 79 Output Total 3360 1340 215 Balance -2785.202 -31.181 -136 Weight 90.8 kg Intake: IV 130 148 79 cardiac index 70 40 70 pressure bags 27 108 9 Intake, IV Titration 643.143 8125.819 Amount ACETAMINOPHEN IV (For NPO 100 ) 1,000 mg In Empty Bag 1 bag @ 400 mls/hr IVPB Q6HR [facility] Rx#:[id number] Albumin Human 5% 250 ml 250 In Empty Bag 1 bag @ 250 mls/hr IVPB Q1HR PRN Rx#: [id number] Insulin Regular 100 unit 54.037 In Sodium Chloride 0.9% 100 ml @ Per Protocol IV .Q0M [facility] Rx#:[id number] Milrinone-D5w Pmx 20 mg 64.272 In Dextrose/Water 1 100ml .bag @ 0.3 MCG/KG/MIN 7. 416 mls/hr IV .[id number] [facility] Rx#:[id number] Norepinephrine 4 mg In 27 92.510 Sodium Chloride 0.9% 250 ml @ 0.05 MCG/KG/MIN 15. 697 mls/hr IV .[id number] [facility] Rx#:[id number] Potassium Chloride 10 meq 100 100 In Water For Injection 1 100ml.bag @ 100 mls/hr IVPB Q1H [facility] Rx#: [id number] Propofol 1,000 mg In 17.798 Empty Bag 1 bag @ Titrate IV .Q0M [facility] Rx#: [id number] Sodium Chloride 0.9% 1, 150 600 000 ml @ 20 mls/hr IV . Q24H [facility] Rx#:[id number] ceFAZolin 2 gm In Sodium 50 Chloride 0.9% 50 ml @ 100 mls/hr IVPB Q8HR [facility] Rx# :[id number] Output: Chest Tube Drainage 330 450 90 left pleural 135 245 30 mediastinal x2 140 160 20 right pleural 55 45 40 Urine 1530 890 125 Estimated Blood Loss 1500 Other: Voiding Method Indwelling Catheter Indwelling Catheter Indwelling Catheter ABP, PAP, CO, CI - Last Documented Arterial Blood Pressure 98/36 Pulmonary Artery Pressure 39/12 Cardiac Output 5 Cardiac Index 2.8 - Exam This is a pleasant 68-year-old female patient who is resting in bed in the intensive care unit. She is in no apparent acute distress, she is awake, alert and oriented [address] She is moving all 4 extremities appropriately with verbal stimuli. Oxygen saturation are 98% on 6 L high flow nasal cannula. - Constitutional General appearance: Present: cooperative, morbidly obese, no acute distress - EENT Eyes: Absent: scleral icterus ENT: Present: hearing grossly normal - Neck Details: Neck is supple, no lymphadenopathy. Right IJ Cordis and Brawley-Josr catheter in place and functioning. - Respiratory Details: Lung sounds essentially clear throughout, diminished her bilateral bases. No wheezes, rhonchi or crackles. Respirations are symmetrical and nonlabored. Oxygen saturation are 98% on 6 L nasal cannula. Achieving 500 mL on her incentive spirometry with much encouragement. Mediastinal, right and left pleural chest tubes remain in place to low continuous wall suction -20 cm H2O. No air leak is present. Draining thin serosanguineous drainage with 130 mL output in the last 8 hours and 300 mL output since surgery from her mediastinal chest tubes, 195 mL output in the last 8 hours and 380 mL output since surgery from her left pleural chest tube and 40 mL output in the last 8 hours and 110 mL output since surgery from her right pleural chest tube. - Cardiovascular Details: Regular rhythm and rate. S1 and S2 present, negative for S3 or gallop. Soft systolic murmur 2/6 heard best to her left sternal border. Sternum is stable. Bedside telemetry showing DDD paced rhythm at 80 bpm, underlying rhythm is normal sinus rhythm with bundle branch block and first-degree heart block with heart rate of 77. Atrial and ventricular epicardial pacemaker wires in place and connected to a backup bedside pacemaker generator with a DDD of 80 bpm. Heart hugger is in place and she is demonstrating appropriate use with encouragement. Knee-high KARTHIKEYAN hose and sequential compression devices in place to her bilateral lower extremities. Right IJ Brawley-Josr catheter in place with current hemodynamic showing a cardiac output of 5.5, cardiac index 3.1, PA pressures 41/15, and CVP 8 mmHg. - Gastrointestinal Gastrointestinal Comment(s): Abdomen is soft, nontender and nondistended. Hypoactive bowel sounds present to all 4 abdominal quadrants. No guarding or rigidity. Tolerating oral intake. - Genitourinary Genitourinary Comment(s): Hinkle catheter for accurate I&O. Draining clear christine urine. 470 mL output in the last 8 hours. - Integumentary Integumentary Comment(s): Skin is warm and dry. No clubbing or cyanosis is present. Midline sternal incision is clean, dry and approximated. Dressing is clean, dry and intact. - Neurologic Neurologic: Present: CNII-XII intact - Musculoskeletal Musculoskeletal Comment(s): Moving all 4 extremities appropriately. Musculoskeletal: Present: generalized weakness, strength equal bilaterally - Psychiatric Psychiatric Comment(s): Patient is pleasantly confused, she is alert and oriented [address]. Psychiatric: Present: appropriate affect - Allied health notes Allied health notes reviewed: nursing - Labs CBC & Chem 7: 10/04/19 04:20 10/04/19 04:20 Labs: Abnormal Lab Results - Last 24 Hours (Table) 09/29/19 10/03/19 10/03/19 Range/Units 09:00 08:53 10:21 WBC (3.8-10.6) k/uL RBC (3.80-5.40) m/uL Hgb (11.4-16.0) gm/dL Hct (34.0-46.0) % RDW (11.5-15.5) % Plt Count (150-450) k/uL Neutrophils # (1.3-7.7) k/uL Neutrophils # (Manual) (1.3-7.7) k/uL Lymphocytes # (1.0-4.8) k/uL Metamyelocytes # (Man) (0) k/uL INR (<1.2) ABG pH 7.33 L 7.28 L (7.35-7.45) ABG pCO2 (35-45) mmHg ABG pO2 >420 H 152 H (83-108) mmHg ABG Total CO2 (19-24) mmol/L ABG O2 Saturation 99.9 H 98.7 H (94-97) % ABG Hematocrit (34.0-46.0) % ABG Sodium (135-146) mmol/L ABG Potassium (3.4-4.5) mmol/L ABG Ionized Calcium (4.5-5.3) mg/dL ABG Glucose 267 H 208 H (75-99) mg/dL ABG Lactic Acid 1.8 H (0.5-1.6) mmol/L Hemoglobin (11.4-16.0) gm/dL Sodium (137-145) mmol/L BUN (7-17) mg/dL Creatinine (0.52-1.04) mg/dL Glucose (74-99) mg/dL POC Glucose (mg/dL) (75-99) mg/dL Calcium (8.4-10.2) mg/dL Magnesium (1.6-2.3) mg/dL AST (14-36) U/L Total Protein (6.3-8.2) g/dL Albumin (3.5-5.0) g/dL Arterial Blood Potassium (3.4-4.5) mmol/L Arterial Blood Glucose 267 H 208 H (75-99) mg/dL Crossmatch See Detail 10/03/19 10/03/19 10/03/19 Range/Units 11:13 11:56 13:03 WBC (3.8-10.6) k/uL RBC (3.80-5.40) m/uL Hgb (11.4-16.0) gm/dL Hct (34.0-46.0) % RDW (11.5-15.5) % Plt Count (150-450) k/uL Neutrophils # (1.3-7.7) k/uL Neutrophils # (Manual) (1.3-7.7) k/uL Lymphocytes # (1.0-4.8) k/uL Metamyelocytes # (Man) (0) k/uL INR (<1.2) ABG pH 7.34 L (7.35-7.45) ABG pCO2 (35-45) mmHg ABG pO2 >420 H 315 H 315 H (83-108) mmHg ABG Total CO2 25 H (19-24) mmol/L ABG O2 Saturation 100.0 H 99.7 H 99.8 H (94-97) % ABG Hematocrit 25 L 24 L 22 L (34.0-46.0) % ABG Sodium 134 L 132 L (135-146) mmol/L ABG Potassium 3.3 L (3.4-4.5) mmol/L ABG Ionized Calcium 4.2 L 4.4 L (4.5-5.3) mg/dL ABG Glucose 165 H 259 H 222 H (75-99) mg/dL ABG Lactic Acid 1.8 H 2.0 H 2.8 H* (0.5-1.6) mmol/L Hemoglobin 8.0 L 7.8 L 7.3 L (11.4-16.0) gm/dL Sodium (137-145) mmol/L BUN (7-17) mg/dL Creatinine (0.52-1.04) mg/dL Glucose (74-99) mg/dL POC Glucose (mg/dL) (75-99) mg/dL Calcium (8.4-10.2) mg/dL Magnesium (1.6-2.3) mg/dL AST (14-36) U/L Total Protein (6.3-8.2) g/dL Albumin (3.5-5.0) g/dL Arterial Blood Potassium 3.3 L (3.4-4.5) mmol/L Arterial Blood Glucose 165 H 259 H 222 H (75-99) mg/dL Crossmatch 10/03/19 10/03/19 10/03/19 Range/Units 14:25 15:08 15:08 WBC 12.3 H (3.8-10.6) k/uL RBC 3.00 L (3.80-5.40) m/uL Hgb 8.7 L D (11.4-16.0) gm/dL Hct 26.4 L (34.0-46.0) % RDW 16.9 H (11.5-15.5) % Plt Count 146 L (150-450) k/uL Neutrophils # 9.6 H (1.3-7.7) k/uL Neutrophils # (Manual) (1.3-7.7) k/uL Lymphocytes # (1.0-4.8) k/uL Metamyelocytes # (Man) (0) k/uL INR 1.2 H (<1.2) ABG pH 7.34 L (7.35-7.45) ABG pCO2 (35-45) mmHg ABG pO2 366 H (83-108) mmHg ABG Total CO2 (19-24) mmol/L ABG O2 Saturation 99.6 H (94-97) % ABG Hematocrit 25 L (34.0-46.0) % ABG Sodium (135-146) mmol/L ABG Potassium 3.3 L (3.4-4.5) mmol/L ABG Ionized Calcium (4.5-5.3) mg/dL ABG Glucose 184 H (75-99) mg/dL ABG Lactic Acid 1.8 H (0.5-1.6) mmol/L Hemoglobin 8.3 L (11.4-16.0) gm/dL Sodium (137-145) mmol/L BUN (7-17) mg/dL Creatinine (0.52-1.04) mg/dL Glucose (74-99) mg/dL POC Glucose (mg/dL) (75-99) mg/dL Calcium (8.4-10.2) mg/dL Magnesium (1.6-2.3) mg/dL AST (14-36) U/L Total Protein (6.3-8.2) g/dL Albumin (3.5-5.0) g/dL Arterial Blood Potassium 3.3 L (3.4-4.5) mmol/L Arterial Blood Glucose 184 H (75-99) mg/dL Crossmatch 10/03/19 10/03/19 10/03/19 Range/Units 15:08 15:09 15:46 WBC (3.8-10.6) k/uL RBC (3.80-5.40) m/uL Hgb (11.4-16.0) gm/dL Hct (34.0-46.0) % RDW (11.5-15.5) % Plt Count (150-450) k/uL Neutrophils # (1.3-7.7) k/uL Neutrophils # (Manual) (1.3-7.7) k/uL Lymphocytes # (1.0-4.8) k/uL Metamyelocytes # (Man) (0) k/uL INR (<1.2) ABG pH 7.30 L (7.35-7.45) ABG pCO2 51 H (35-45) mmHg ABG pO2 329 H (83-108) mmHg ABG Total CO2 26 H (19-24) mmol/L ABG O2 Saturation 99.7 H (94-97) % ABG Hematocrit (34.0-46.0) % ABG Sodium (135-146) mmol/L ABG Potassium (3.4-4.5) mmol/L ABG Ionized Calcium (4.5-5.3) mg/dL ABG Glucose (75-99) mg/dL ABG Lactic Acid (0.5-1.6) mmol/L Hemoglobin (11.4-16.0) gm/dL Sodium 136 L (137-145) mmol/L BUN 62 H (7-17) mg/dL Creatinine 1.74 H (0.52-1.04) mg/dL Glucose 146 H (74-99) mg/dL POC Glucose (mg/dL) 161 H (75-99) mg/dL Calcium 8.2 L (8.4-10.2) mg/dL Magnesium 2.6 H (1.6-2.3) mg/dL AST 56 H (14-36) U/L Total Protein 5.3 L (6.3-8.2) g/dL Albumin 3.1 L (3.5-5.0) g/dL Arterial Blood Potassium (3.4-4.5) mmol/L Arterial Blood Glucose (75-99) mg/dL Crossmatch 10/03/19 10/03/19 10/03/19 Range/Units 16:00 17:13 17:15 WBC 13.0 H (3.8-10.6) k/uL RBC 3.13 L (3.80-5.40) m/uL Hgb 8.6 L (11.4-16.0) gm/dL Hct 27.1 L (34.0-46.0) % RDW 17.3 H (11.5-15.5) % Plt Count (150-450) k/uL Neutrophils # (1.3-7.7) k/uL Neutrophils # (Manual) 10.00 H (1.3-7.7) k/uL Lymphocytes # (1.0-4.8) k/uL Metamyelocytes # (Man) 0.13 H (0) k/uL INR (<1.2) ABG pH (7.35-7.45) ABG pCO2 (35-45) mmHg ABG pO2 (83-108) mmHg ABG Total CO2 (19-24) mmol/L ABG O2 Saturation (94-97) % ABG Hematocrit (34.0-46.0) % ABG Sodium (135-146) mmol/L ABG Potassium (3.4-4.5) mmol/L ABG Ionized Calcium (4.5-5.3) mg/dL ABG Glucose (75-99) mg/dL ABG Lactic Acid (0.5-1.6) mmol/L Hemoglobin (11.4-16.0) gm/dL Sodium (137-145) mmol/L BUN (7-17) mg/dL Creatinine (0.52-1.04) mg/dL Glucose (74-99) mg/dL POC Glucose (mg/dL) 140 H 143 H (75-99) mg/dL Calcium (8.4-10.2) mg/dL Magnesium (1.6-2.3) mg/dL AST (14-36) U/L Total Protein (6.3-8.2) g/dL Albumin (3.5-5.0) g/dL Arterial Blood Potassium (3.4-4.5) mmol/L Arterial Blood Glucose (75-99) mg/dL Crossmatch 10/03/19 10/03/19 10/03/19 Range/Units 18:08 19:06 20:05 WBC (3.8-10.6) k/uL RBC (3.80-5.40) m/uL Hgb (11.4-16.0) gm/dL Hct (34.0-46.0) % RDW (11.5-15.5) % Plt Count (150-450) k/uL Neutrophils # (1.3-7.7) k/uL Neutrophils # (Manual) (1.3-7.7) k/uL Lymphocytes # (1.0-4.8) k/uL Metamyelocytes # (Man) (0) k/uL INR (<1.2) ABG pH (7.35-7.45) ABG pCO2 (35-45) mmHg ABG pO2 (83-108) mmHg ABG Total CO2 (19-24) mmol/L ABG O2 Saturation (94-97) % ABG Hematocrit (34.0-46.0) % ABG Sodium (135-146) mmol/L ABG Potassium (3.4-4.5) mmol/L ABG Ionized Calcium (4.5-5.3) mg/dL ABG Glucose (75-99) mg/dL ABG Lactic Acid (0.5-1.6) mmol/L Hemoglobin (11.4-16.0) gm/dL Sodium (137-145) mmol/L BUN (7-17) mg/dL Creatinine (0.52-1.04) mg/dL Glucose (74-99) mg/dL POC Glucose (mg/dL) 147 H 161 H 168 H (75-99) mg/dL Calcium (8.4-10.2) mg/dL Magnesium (1.6-2.3) mg/dL AST (14-36) U/L Total Protein (6.3-8.2) g/dL Albumin (3.5-5.0) g/dL Arterial Blood Potassium (3.4-4.5) mmol/L Arterial Blood Glucose (75-99) mg/dL Crossmatch 10/03/19 10/03/19 10/03/19 Range/Units 20:50 20:50 20:56 WBC 11.3 H (3.8-10.6) k/uL RBC 2.81 L (3.80-5.40) m/uL Hgb 8.1 L (11.4-16.0) gm/dL Hct 24.8 L (34.0-46.0) % RDW 17.0 H (11.5-15.5) % Plt Count (150-450) k/uL Neutrophils # 9.7 H (1.3-7.7) k/uL Neutrophils # (Manual) (1.3-7.7) k/uL Lymphocytes # 0.9 L (1.0-4.8) k/uL Metamyelocytes # (Man) (0) k/uL INR (<1.2) ABG pH (7.35-7.45) ABG pCO2 (35-45) mmHg ABG pO2 (83-108) mmHg ABG Total CO2 (19-24) mmol/L ABG O2 Saturation (94-97) % ABG Hematocrit (34.0-46.0) % ABG Sodium (135-146) mmol/L ABG Potassium (3.4-4.5) mmol/L ABG Ionized Calcium (4.5-5.3) mg/dL ABG Glucose (75-99) mg/dL ABG Lactic Acid (0.5-1.6) mmol/L Hemoglobin (11.4-16.0) gm/dL Sodium 135 L (137-145) mmol/L BUN 57 H (7-17) mg/dL Creatinine 1.76 H (0.52-1.04) mg/dL Glucose 156 H (74-99) mg/dL POC Glucose (mg/dL) 180 H (75-99) mg/dL Calcium 8.2 L (8.4-10.2) mg/dL Magnesium (1.6-2.3) mg/dL AST (14-36) U/L Total Protein (6.3-8.2) g/dL Albumin (3.5-5.0) g/dL Arterial Blood Potassium (3.4-4.5) mmol/L Arterial Blood Glucose (75-99) mg/dL Crossmatch 10/03/19 10/03/19 10/03/19 Range/Units 22:00 23:05 23:43 WBC (3.8-10.6) k/uL RBC (3.80-5.40) m/uL Hgb (11.4-16.0) gm/dL Hct (34.0-46.0) % RDW (11.5-15.5) % Plt Count (150-450) k/uL Neutrophils # (1.3-7.7) k/uL Neutrophils # (Manual) (1.3-7.7) k/uL Lymphocytes # (1.0-4.8) k/uL Metamyelocytes # (Man) (0) k/uL INR (<1.2) ABG pH 7.30 L (7.35-7.45) ABG pCO2 49 H (35-45) mmHg ABG pO2 (83-108) mmHg ABG Total CO2 26 H (19-24) mmol/L ABG O2 Saturation 97.5 H (94-97) % ABG Hematocrit (34.0-46.0) % ABG Sodium (135-146) mmol/L ABG Potassium (3.4-4.5) mmol/L ABG Ionized Calcium (4.5-5.3) mg/dL ABG Glucose (75-99) mg/dL ABG Lactic Acid (0.5-1.6) mmol/L Hemoglobin (11.4-16.0) gm/dL Sodium (137-145) mmol/L BUN (7-17) mg/dL Creatinine (0.52-1.04) mg/dL Glucose (74-99) mg/dL POC Glucose (mg/dL) 190 H 205 H (75-99) mg/dL Calcium (8.4-10.2) mg/dL Magnesium (1.6-2.3) mg/dL AST (14-36) U/L Total Protein (6.3-8.2) g/dL Albumin (3.5-5.0) g/dL Arterial Blood Potassium (3.4-4.5) mmol/L Arterial Blood Glucose (75-99) mg/dL Crossmatch 10/04/19 10/04/19 10/04/19 Range/Units 00:11 00:59 01:52 WBC (3.8-10.6) k/uL RBC (3.80-5.40) m/uL Hgb (11.4-16.0) gm/dL Hct (34.0-46.0) % RDW (11.5-15.5) % Plt Count (150-450) k/uL Neutrophils # (1.3-7.7) k/uL Neutrophils # (Manual) (1.3-7.7) k/uL Lymphocytes # (1.0-4.8) k/uL Metamyelocytes # (Man) (0) k/uL INR (<1.2) ABG pH (7.35-7.45) ABG pCO2 (35-45) mmHg ABG pO2 (83-108) mmHg ABG Total CO2 (19-24) mmol/L ABG O2 Saturation (94-97) % ABG Hematocrit (34.0-46.0) % ABG Sodium (135-146) mmol/L ABG Potassium (3.4-4.5) mmol/L ABG Ionized Calcium (4.5-5.3) mg/dL ABG Glucose (75-99) mg/dL ABG Lactic Acid (0.5-1.6) mmol/L Hemoglobin (11.4-16.0) gm/dL Sodium (137-145) mmol/L BUN (7-17) mg/dL Creatinine (0.52-1.04) mg/dL Glucose (74-99) mg/dL POC Glucose (mg/dL) 196 H 195 H 184 H (75-99) mg/dL Calcium (8.4-10.2) mg/dL Magnesium (1.6-2.3) mg/dL AST (14-36) U/L Total Protein (6.3-8.2) g/dL Albumin (3.5-5.0) g/dL Arterial Blood Potassium (3.4-4.5) mmol/L Arterial Blood Glucose (75-99) mg/dL Crossmatch 10/04/19 10/04/19 10/04/19 Range/Units 02:54 03:58 04:20 WBC 12.0 H (3.8-10.6) k/uL RBC 2.83 L (3.80-5.40) m/uL Hgb 8.2 L (11.4-16.0) gm/dL Hct 25.0 L (34.0-46.0) % RDW 17.4 H (11.5-15.5) % Plt Count (150-450) k/uL Neutrophils # 10.2 H (1.3-7.7) k/uL Neutrophils # (Manual) (1.3-7.7) k/uL Lymphocytes # (1.0-4.8) k/uL Metamyelocytes # (Man) (0) k/uL INR (<1.2) ABG pH (7.35-7.45) ABG pCO2 (35-45) mmHg ABG pO2 (83-108) mmHg ABG Total CO2 (19-24) mmol/L ABG O2 Saturation (94-97) % ABG Hematocrit (34.0-46.0) % ABG Sodium (135-146) mmol/L ABG Potassium (3.4-4.5) mmol/L ABG Ionized Calcium (4.5-5.3) mg/dL ABG Glucose (75-99) mg/dL ABG Lactic Acid (0.5-1.6) mmol/L Hemoglobin (11.4-16.0) gm/dL Sodium (137-145) mmol/L BUN (7-17) mg/dL Creatinine (0.52-1.04) mg/dL Glucose (74-99) mg/dL POC Glucose (mg/dL) 192 H 163 H (75-99) mg/dL Calcium (8.4-10.2) mg/dL Magnesium (1.6-2.3) mg/dL AST (14-36) U/L Total Protein (6.3-8.2) g/dL Albumin (3.5-5.0) g/dL Arterial Blood Potassium (3.4-4.5) mmol/L Arterial Blood Glucose (75-99) mg/dL Crossmatch 10/04/19 10/04/19 10/04/19 Range/Units 04:20 04:22 04:59 WBC (3.8-10.6) k/uL RBC (3.80-5.40) m/uL Hgb (11.4-16.0) gm/dL Hct (34.0-46.0) % RDW (11.5-15.5) % Plt Count (150-450) k/uL Neutrophils # (1.3-7.7) k/uL Neutrophils # (Manual) (1.3-7.7) k/uL Lymphocytes # (1.0-4.8) k/uL Metamyelocytes # (Man) (0) k/uL INR (<1.2) ABG pH 7.33 L (7.35-7.45) ABG pCO2 (35-45) mmHg ABG pO2 126 H (83-108) mmHg ABG Total CO2 25 H (19-24) mmol/L ABG O2 Saturation 98.6 H (94-97) % ABG Hematocrit (34.0-46.0) % ABG Sodium (135-146) mmol/L ABG Potassium (3.4-4.5) mmol/L ABG Ionized Calcium (4.5-5.3) mg/dL ABG Glucose (75-99) mg/dL ABG Lactic Acid (0.5-1.6) mmol/L Hemoglobin (11.4-16.0) gm/dL Sodium (137-145) mmol/L BUN 56 H (7-17) mg/dL Creatinine 1.91 H (0.52-1.04) mg/dL Glucose 137 H (74-99) mg/dL POC Glucose (mg/dL) 145 H (75-99) mg/dL Calcium (8.4-10.2) mg/dL Magnesium (1.6-2.3) mg/dL AST 68 H (14-36) U/L Total Protein 5.7 L (6.3-8.2) g/dL Albumin (3.5-5.0) g/dL Arterial Blood Potassium (3.4-4.5) mmol/L Arterial Blood Glucose (75-99) mg/dL Crossmatch 10/04/19 10/04/19 10/04/19 Range/Units 06:06 06:54 08:02 WBC (3.8-10.6) k/uL RBC (3.80-5.40) m/uL Hgb (11.4-16.0) gm/dL Hct (34.0-46.0) % RDW (11.5-15.5) % Plt Count (150-450) k/uL Neutrophils # (1.3-7.7) k/uL Neutrophils # (Manual) (1.3-7.7) k/uL Lymphocytes # (1.0-4.8) k/uL Metamyelocytes # (Man) (0) k/uL INR (<1.2) ABG pH (7.35-7.45) ABG pCO2 (35-45) mmHg ABG pO2 (83-108) mmHg ABG Total CO2 (19-24) mmol/L ABG O2 Saturation (94-97) % ABG Hematocrit (34.0-46.0) % ABG Sodium (135-146) mmol/L ABG Potassium (3.4-4.5) mmol/L ABG Ionized Calcium (4.5-5.3) mg/dL ABG Glucose (75-99) mg/dL ABG Lactic Acid (0.5-1.6) mmol/L Hemoglobin (11.4-16.0) gm/dL Sodium (137-145) mmol/L BUN (7-17) mg/dL Creatinine (0.52-1.04) mg/dL Glucose (74-99) mg/dL POC Glucose (mg/dL) 143 H 135 H 133 H (75-99) mg/dL Calcium (8.4-10.2) mg/dL Magnesium (1.6-2.3) mg/dL AST (14-36) U/L Total Protein (6.3-8.2) g/dL Albumin (3.5-5.0) g/dL Arterial Blood Potassium (3.4-4.5) mmol/L Arterial Blood Glucose (75-99) mg/dL Crossmatch 10/04/19 Range/Units 09:16 WBC (3.8-10.6) k/uL RBC (3.80-5.40) m/uL Hgb (11.4-16.0) gm/dL Hct (34.0-46.0) % RDW (11.5-15.5) % Plt Count (150-450) k/uL Neutrophils # (1.3-7.7) k/uL Neutrophils # (Manual) (1.3-7.7) k/uL Lymphocytes # (1.0-4.8) k/uL Metamyelocytes # (Man) (0) k/uL INR (<1.2) ABG pH (7.35-7.45) ABG pCO2 (35-45) mmHg ABG pO2 (83-108) mmHg ABG Total CO2 (19-24) mmol/L ABG O2 Saturation (94-97) % ABG Hematocrit (34.0-46.0) % ABG Sodium (135-146) mmol/L ABG Potassium (3.4-4.5) mmol/L ABG Ionized Calcium (4.5-5.3) mg/dL ABG Glucose (75-99) mg/dL ABG Lactic Acid (0.5-1.6) mmol/L Hemoglobin (11.4-16.0) gm/dL Sodium (137-145) mmol/L BUN (7-17) mg/dL Creatinine (0.52-1.04) mg/dL Glucose (74-99) mg/dL POC Glucose (mg/dL) 126 H (75-99) mg/dL Calcium (8.4-10.2) mg/dL Magnesium (1.6-2.3) mg/dL AST (14-36) U/L Total Protein (6.3-8.2) g/dL Albumin (3.5-5.0) g/dL Arterial Blood Potassium (3.4-4.5) mmol/L Arterial Blood Glucose (75-99) mg/dL Crossmatch Microbiology - Last 24 Hours (Table) 10/03/19 08:22 Urine Culture - Preliminary Urine,Voided - Imaging and Cardiology Chest x-ray: image reviewed Assessment and Plan Assessment: 1. Single-vessel coronary artery disease, status post single vessel coronary artery bypass grafting REYES to the left anterior descending coronary artery 2. Severe functional mitral valve regurgitation, status post mitral valve repair using a reduction annuloplasty with a 28 mm physio-II ring 3. Mild tricuspid valve regurgitation 4. Acute on chronic systolic heart failure, with a preoperative ejection fraction of 35-40% 5. History of coronary artery disease with previous stent placement to her left anterior descending coronary artery in 2017 6. Hypertension 7. Dyslipidemia 8. Poorly controlled insulin-dependent diabetes mellitus with a preoperative hemoglobin A1c of 10.7% 8. Ischemic cardiomyopathy 9. Pulmonary hypertension, likely related to valvular disease 10. Stage III chronic kidney disease with a baseline creatinine of 1.5 11. Obstructive sleep apnea 12. Preoperative urinary tract infection of Klebsiella pneumoniae, treated 13. Morbid obesity 14. Postoperative acute blood loss anemia Plan: 1. Continue aspirin, statin, Plavix, and beta anaid. We will increase beta anaid as tolerated. 2. Wean O2 as tolerated. Encourage incentive spirometry 10 times every hour while awake. 3. Bronchodilators per pulmonology management. 4. Increase activity, out of bed for all meals. PT/OT/cardiac rehab consulted. 5. Will monitor daily labs and chest x-rays. Electrolyte replacement per protocol. 6. Pain controlled current medication regimen. Due to the patient's confusion hold avoid opioids. Acetaminophen 1000 mg by mouth every 6 hours when necessary pain has been added. 7. Insulin management per primary care service. 8. Continue right IJ Brawley-Josr catheter. Decrease Primacor to 0.15 mcg/kg/m. 9. Keep mediastinal, left and right pleural chest tubes in place to low continuous wall suction -20 cm H2O. Continue to record accurate I's and O's. 10. Keep Hinkle catheter for another 24 hours for strict accurate I's and O's. 11. Keep atrial and ventricular epicardial pacemaker wires in place and conne cted to a backup pacemaker generator on a VVI 50. 12. The patient's home meds of Synthroid, Celexa ferrous sulfate and allopurinol have been restarted per her home doses. 13. Discontinue nitroglycerin drip. 14. More recommendations to follow based on patient's clinical course. Time with Patient: Greater than 30
--- NOTE | 2019-10-04 10:23 | XR ---
EXAMINATION TYPE: XR chest 1V portable DATE OF EXAM: 10/04/2019 COMPARISON: Prior chest x-ray 10/03/2019 HISTORY: Postop cardiac surgery, extubated TECHNIQUE: Single frontal view of the chest is obtained. FINDINGS: Endotracheal tube and NG tube have been removed. Right jugular central venous catheter is again seen, distal tip is over the pulmonary artery. Heart remains enlarged. Patient is post median s ternotomy, atrial appendage clipping placement, cardiac valve replacement. No evident pneumothorax. R ight-sided chest tube remains in place. Left-sided chest tube is also present as on prior. Coronary a rtery stent is present. Patient is rotated. Lung lines are low. Perihilar density is improved. IMPRESSION: Improved aeration. Interval extubation.
[2019-10-04 12:19] LABS: Glucose,Whole Blood 114 mg/dL (75-99)
--- NOTE | 2019-10-04 12:59 | P.PN ---
Subjective Progress Note Date: 10/04/19 Principal diagnosis: Status post CABG, MVR. Postoperative day #1 68-year-old of Dr. Moore, with past medical history of coronary artery disease with previous stenting of the LAD in 2017, hypertension, hyperlipidemia, insulin-dependent diabetes mellitus, morbid obesity, stage III chronic kidney disease, pulmonary hypertension, family history of hypertension and diabetes. Patient was hospitalized last November 2018 when she presented with complaints of severe, constant, sharp chest pain with left arm radiation. Patient had echocardiogram that showed a moderately impaired LV function with EF of 35-40%, mild aortic regurgitation, mild mitral annular calcification and moderate to severe mitral regurgitation. There was evidence of severe pulmonary hypertension and moderate tricuspid regurg. Patient went on to have cardiac catheterization that showed LAD stenosis of 70% in the proximal portion. YULIANA showed EF of 35-40%, severe mitral regurgitation, with a dilated annulus and poor coaptation of the mitral leaflets and moderate to severe tricuspid regurgitation. She was referred to CT surgery for surgical evaluation, and it took her several months to obtain dental clearance, and optimize her diabetes. Today on 10/03/2019 patient had a one-vessel bypass with REYES to LAD, and mitral valve repair, his occlusion of the left atrial appendage. She is seen in the po stoperative period in the intensive care unit, she is intubated, sedated on mechanical ventilator, current vent settings assist control mode with a rate of 16, tidal vital 350, FiO2 50% and PEEP of 8. Current drips include 0.9 normal saline at a rate of 50, Primacor at 0.3 mics per kilo per minute, levo fed at 0.04 mics per kilo per minute, insulin drip, and Diprivan at 20 mics per kilo per minute. PA pressure is 48/27, CVP 13, cardiac output and index are 4.6 and 2.6 respectively, AV wires in place, patient is on VVI Mode and is currently pacing at 100%. 2 mediastinal chest tubes with 130 mL of sanguinous output, left pleural and right pleural with 120 and 50 ML of sanguinous output resp ectively. Postop blood work shows a white blood cell count of 12.3, hemoglobin of 8.7, sodium is 136, the rest of electrolytes are within normal limits, BUN 62 and creatinine is 1.74. Patient was reevaluated today on 10/04/19, patient was extubated around 4 AM this morning. He tolerated the extubation quite well. Presently on IV fluid at 50 mL per hour. Patient has intermittent episodes of confusion. Remains on Primacor at 0. one 5 mcg/kg/m. Patient is paced with VVI pacemaker at 50 bpm. Her cardiac index is 2.8, cardiac output is 5 CVP is 10. Chest x-ray showed minimal atelectasis at the bases. Patient had REYES to LAD, mitral valve repair and she again she is postoperative day #1. Patient is on 6 L high flow nasal cannula. O2 saturations 98%. Achieving 500 mL on her incentive spirometer. She has noted some surgical type of pain at the side of her chest tube insertion, and mostly when taking a deep breath. Denies shortness of breath. Mediastinal right and left pleural chest tubes remain in place. On continuous wall suction. No air leak. Draining thin serosanguineous drainage with the 130 mL output in the last 8 hours and 300 mL output since surgery from the media stinal chest tubes. Objective - Vital Signs Vital signs: Vital Signs Temp 97.9 F 10/04/19 08:00 Pulse 74 10/04/19 11:33 Resp 13 10/04/19 11:00 BP 107/53 10/04/19 11:00 Pulse Ox 95 10/04/19 11:00 Intake & Output 10/03/19 10/04/19 10/04/19 18:59 06:59 18:59 Intake Total 149.664 9870.819 151 Output Total 3360 1340 295 Balance -2785.202 -31.181 -144 Weight 90.8 kg Intake: IV 130 148 151 cardiac index 70 40 130 pressure bags 27 108 21 Intake, IV Titration 592.298 0187.819 Amount ACETAMINOPHEN IV (For NPO 100 ) 1,000 mg In Empty Bag 1 bag @ 400 mls/hr IVPB Q6HR [facility] Rx#:[id number] Albumin Human 5% 250 ml 250 In Empty Bag 1 bag @ 250 mls/hr IVPB Q1HR PRN Rx#: [id number] Insulin Regular 100 unit 54.037 In Sodium Chloride 0.9% 100 ml @ Per Protocol IV .Q0M [facility] Rx#:[id number] Milrinone-D5w Pmx 20 mg 64.272 In Dextrose/Water 1 100ml .bag @ 0.3 MCG/KG/MIN 7. 416 mls/hr IV .[id number] [facility] Rx#:[id number] Norepinephrine 4 mg In 27 92.510 Sodium Chloride 0.9% 250 ml @ 0.05 MCG/KG/MIN 15. 697 mls/hr IV .[id number] [facility] Rx#:[id number] Potassium Chloride 10 meq 100 100 In Water For Injection 1 100ml.bag @ 100 mls/hr IVPB Q1H [facility] Rx#: [id number] Propofol 1,000 mg In 17.798 Empty Bag 1 bag @ Titrate IV .Q0M [facility] Rx#: [id number] Sodium Chloride 0.9% 1, 150 600 000 ml @ 20 mls/hr IV . Q24H [facility] Rx#:[id number] ceFAZolin 2 gm In Sodium 50 Chloride 0.9% 50 ml @ 100 mls/hr IVPB Q8HR [facility] Rx# :[id number] Output: Chest Tube Drainage 330 450 90 left pleural 135 245 30 mediastinal x2 140 160 20 right pleural 55 45 40 Urine 1530 890 205 Estimated Blood Loss 1500 Other: Voiding Method Indwelling Catheter Indwelling Catheter Indwelling Catheter ABP, PAP, CO, CI - Last Documented Arterial Blood Pressure 103/41 Pulmonary Artery Pressure 40/15 Cardiac Output 5 Cardiac Index 2.8 - Exam GENERAL EXAM: Revealed 68-year-old female in no distress. Head: Atraumatic, normocephalic. HEENT: PERRLA, EOMI, no icterus, no neck masses, no JVD. CHEST: No chest wall deformity. Diminished breath sounds at the bases no crackles or rhonchi and wheezes. Chest tubes and mediastinal tubes noted. CVS: Regular rate and rhythm, normal S1 and S2, no gallops, no murmurs, no rubs ABDOMEN: Soft, nontender. No hepatosplenomegaly, normal bowel sounds, no guarding or rigidity. EXTREMITIES: No clubbing, no edema, no cyanosis, 2+ pulses and upper and lower extremities. MUSCULOSKELETAL: Muscle strength and tone normal. SPINE: No scoliosis or deformity SKIN: No rashes CENTRAL NERVOUS SYSTEM: Alert and oriented 3, no gross focal neurologic deficits. - Labs CBC & Chem 7: 10/04/19 04:20 10/04/19 04:20 Labs: Abnormal Lab Results - Last 24 Hours (Table) 09/29/19 10/03/19 10/03/19 Range/Units 09:00 08:53 10:21 WBC (3.8-10.6) k/uL RBC (3.80-5.40) m/uL Hgb (11.4-16.0) gm/dL Hct (34.0-46.0) % RDW (11.5-15.5) % Plt Count (150-450) k/uL Neutrophils # (1.3-7.7) k/uL Neutrophils # (Manual) (1.3-7.7) k/uL Lymphocytes # (1.0-4.8) k/uL Metamyelocytes # (Man) (0) k/uL INR (<1.2) ABG pH 7.33 L 7.28 L (7.35-7.45) ABG pCO2 (35-45) mmHg ABG pO2 >420 H 152 H (83-108) mmHg ABG Total CO2 (19-24) mmol/L ABG O2 Saturation 99.9 H 98.7 H (94-97) % ABG Hematocrit (34.0-46.0) % ABG Sodium (135-146) mmol/L ABG Potassium (3.4-4.5) mmol/L ABG Ionized Calcium (4.5-5.3) mg/dL ABG Glucose 267 H 208 H (75-99) mg/dL ABG Lactic Acid 1.8 H (0.5-1.6) mmol/L Hemoglobin (11.4-16.0) gm/dL Sodium (137-145) mmol/L BUN (7-17) mg/dL Creatinine (0.52-1.04) mg/dL Glucose (74-99) mg/dL POC Glucose (mg/dL) (75-99) mg/dL Calcium (8.4-10.2) mg/dL Magnesium (1.6-2.3) mg/dL AST (14-36) U/L Total Protein (6.3-8.2) g/dL Albumin (3.5-5.0) g/dL Arterial Blood Potassium (3.4-4.5) mmol/L Arterial Blood Glucose 267 H 208 H (75-99) mg/dL Crossmatch See Detail 10/03/19 10/03/19 10/03/19 Range/Units 11:13 11:56 13:03 WBC (3.8-10.6) k/uL RBC (3.80-5.40) m/uL Hgb (11.4-16.0) gm/dL Hct (34.0-46.0) % RDW (11.5-15.5) % Plt Count (150-450) k/uL Neutrophils # (1.3-7.7) k/uL Neutrophils # (Manual) (1.3-7.7) k/uL Lymphocytes # (1.0-4.8) k/uL Metamyelocytes # (Man) (0) k/uL INR (<1.2) ABG pH 7.34 L (7.35-7.45) ABG pCO2 (35-45) mmHg ABG pO2 >420 H 315 H 315 H (83-108) mmHg ABG Total CO2 25 H (19-24) mmol/L ABG O2 Saturation 100.0 H 99.7 H 99.8 H (94-97) % ABG Hematocrit 25 L 24 L 22 L (34.0-46.0) % ABG Sodium 134 L 132 L (135-146) mmol/L ABG Potassium 3.3 L (3.4-4.5) mmol/L ABG Ionized Calcium 4.2 L 4.4 L (4.5-5.3) mg/dL ABG Glucose 165 H 259 H 222 H (75-99) mg/dL ABG Lactic Acid 1.8 H 2.0 H 2.8 H* (0.5-1.6) mmol/L Hemoglobin 8.0 L 7.8 L 7.3 L (11.4-16.0) gm/dL Sodium (137-145) mmol/L BUN (7-17) mg/dL Creatinine (0.52-1.04) mg/dL Glucose (74-99) mg/dL POC Glucose (mg/dL) (75-99) mg/dL Calcium (8.4-10.2) mg/dL Magnesium (1.6-2.3) mg/dL AST (14-36) U/L Total Protein (6.3-8.2) g/dL Albumin (3.5-5.0) g/dL Arterial Blood Potassium 3.3 L (3.4-4.5) mmol/L Arterial Blood Glucose 165 H 259 H 222 H (75-99) mg/dL Crossmatch 10/03/19 10/03/19 10/03/19 Range/Units 14:25 15:08 15:08 WBC 12.3 H (3.8-10.6) k/uL RBC 3.00 L (3.80-5.40) m/uL Hgb 8.7 L D (11.4-16.0) gm/dL Hct 26.4 L (34.0-46.0) % RDW 16.9 H (11.5-15.5) % Plt Count 146 L (150-450) k/uL Neutrophils # 9.6 H (1.3-7.7) k/uL Neutrophils # (Manual) (1.3-7.7) k/uL Lymphocytes # (1.0-4.8) k/uL Metamyelocytes # (Man) (0) k/uL INR 1.2 H (<1.2) ABG pH 7.34 L (7.35-7.45) ABG pCO2 (35-45) mmHg ABG pO2 366 H (83-108) mmHg ABG Total CO2 (19-24) mmol/L ABG O2 Saturation 99.6 H (94-97) % ABG Hematocrit 25 L (34.0-46.0) % ABG Sodium (135-146) mmol/L ABG Potassium 3.3 L (3.4-4.5) mmol/L ABG Ionized Calcium (4.5-5.3) mg/dL ABG Glucose 184 H (75-99) mg/dL ABG Lactic Acid 1.8 H (0.5-1.6) mmol/L Hemoglobin 8.3 L (11.4-16.0) gm/dL Sodium (137-145) mmol/L BUN (7-17) mg/dL Creatinine (0.52-1.04) mg/dL Glucose (74-99) mg/dL POC Glucose (mg/dL) (75-99) mg/dL Calcium (8.4-10.2) mg/dL Magnesium (1.6-2.3) mg/dL AST (14-36) U/L Total Protein (6.3-8.2) g/dL Albumin (3.5-5.0) g/dL Arterial Blood Potassium 3.3 L (3.4-4.5) mmol/L Arterial Blood Glucose 184 H (75-99) mg/dL Crossmatch 10/03/19 10/03/19 10/03/19 Range/Units 15:08 15:09 15:46 WBC (3.8-10.6) k/uL RBC (3.80-5.40) m/uL Hgb (11.4-16.0) gm/dL Hct (34.0-46.0) % RDW (11.5-15.5) % Plt Count (150-450) k/uL Neutrophils # (1.3-7.7) k/uL Neutrophils # (Manual) (1.3-7.7) k/uL Lymphocytes # (1.0-4.8) k/uL Metamyelocytes # (Man) (0) k/uL INR (<1.2) ABG pH 7.30 L (7.35-7.45) ABG pCO2 51 H (35-45) mmHg ABG pO2 329 H (83-108) mmHg ABG Total CO2 26 H (19-24) mmol/L ABG O2 Saturation 99.7 H (94-97) % ABG Hematocrit (34.0-46.0) % ABG Sodium (135-146) mmol/L ABG Potassium (3.4-4.5) mmol/L ABG Ionized Calcium (4.5-5.3) mg/dL ABG Glucose (75-99) mg/dL ABG Lactic Acid (0.5-1.6) mmol/L Hemoglobin (11.4-16.0) gm/dL Sodium 136 L (137-145) mmol/L BUN 62 H (7-17) mg/dL Creatinine 1.74 H (0.52-1.04) mg/dL Glucose 146 H (74-99) mg/dL POC Glucose (mg/dL) 161 H (75-99) mg/dL Calcium 8.2 L (8.4-10.2) mg/dL Magnesium 2.6 H (1.6-2.3) mg/dL AST 56 H (14-36) U/L Total Protein 5.3 L (6.3-8.2) g/dL Albumin 3.1 L (3.5-5.0) g/dL Arterial Blood Potassium (3.4-4.5) mmol/L Arterial Blood Glucose (75-99) mg/dL Crossmatch 10/03/19 10/03/19 10/03/19 Range/Units 16:00 17:13 17:15 WBC 13.0 H (3.8-10.6) k/uL RBC 3.13 L (3.80-5.40) m/uL Hgb 8.6 L (11.4-16.0) gm/dL Hct 27.1 L (34.0-46.0) % RDW 17.3 H (11.5-15.5) % Plt Count (150-450) k/uL Neutrophils # (1.3-7.7) k/uL Neutrophils # (Manual) 10.00 H (1.3-7.7) k/uL Lymphocytes # (1.0-4.8) k/uL Metamyelocytes # (Man) 0.13 H (0) k/uL INR (<1.2) ABG pH (7.35-7.45) ABG pCO2 (35-45) mmHg ABG pO2 (83-108) mmHg ABG Total CO2 (19-24) mmol/L ABG O2 Saturation (94-97) % ABG Hematocrit (34.0-46.0) % ABG Sodium (135-146) mmol/L ABG Potassium (3.4-4.5) mmol/L ABG Ionized Calcium (4.5-5.3) mg/dL ABG Glucose (75-99) mg/dL ABG Lactic Acid (0.5-1.6) mmol/L Hemoglobin (11.4-16.0) gm/dL Sodium (137-145) mmol/L BUN (7-17) mg/dL Creatinine (0.52-1.04) mg/dL Glucose (74-99) mg/dL POC Glucose (mg/dL) 140 H 143 H (75-99) mg/dL Calcium (8.4-10.2) mg/dL Magnesium (1.6-2.3) mg/dL AST (14-36) U/L Total Protein (6.3-8.2) g/dL Albumin (3.5-5.0) g/dL Arterial Blood Potassium (3.4-4.5) mmol/L Arterial Blood Glucose (75-99) mg/dL Crossmatch 10/03/19 10/03/19 10/03/19 Range/Units 18:08 19:06 20:05 WBC (3.8-10.6) k/uL RBC (3.80-5.40) m/uL Hgb (11.4-16.0) gm/dL Hct (34.0-46.0) % RDW (11.5-15.5) % Plt Count (150-450) k/uL Neutrophils # (1.3-7.7) k/uL Neutrophils # (Manual) (1.3-7.7) k/uL Lymphocytes # (1.0-4.8) k/uL Metamyelocytes # (Man) (0) k/uL INR (<1.2) ABG pH (7.35-7.45) ABG pCO2 (35-45) mmHg ABG pO2 (83-108) mmHg ABG Total CO2 (19-24) mmol/L ABG O2 Saturation (94-97) % ABG Hematocrit (34.0-46.0) % ABG Sodium (135-146) mmol/L ABG Potassium (3.4-4.5) mmol/L ABG Ionized Calcium (4.5-5.3) mg/dL ABG Glucose (75-99) mg/dL ABG Lactic Acid (0.5-1.6) mmol/L Hemoglobin (11.4-16.0) gm/dL Sodium (137-145) mmol/L BUN (7-17) mg/dL Creatinine (0.52-1.04) mg/dL Glucose (74-99) mg/dL POC Glucose (mg/dL) 147 H 161 H 168 H (75-99) mg/dL Calcium (8.4-10.2) mg/dL Magnesium (1.6-2.3) mg/dL AST (14-36) U/L Total Protein (6.3-8.2) g/dL Albumin (3.5-5.0) g/dL Arterial Blood Potassium (3.4-4.5) mmol/L Arterial Blood Glucose (75-99) mg/dL Crossmatch 10/03/19 10/03/19 10/03/19 Range/Units 20:50 20:50 20:56 WBC 11.3 H (3.8-10.6) k/uL RBC 2.81 L (3.80-5.40) m/uL Hgb 8.1 L (11.4-16.0) gm/dL Hct 24.8 L (34.0-46.0) % RDW 17.0 H (11.5-15.5) % Plt Count (150-450) k/uL Neutrophils # 9.7 H (1.3-7.7) k/uL Neutrophils # (Manual) (1.3-7.7) k/uL Lymphocytes # 0.9 L (1.0-4.8) k/uL Metamyelocytes # (Man) (0) k/uL INR (<1.2) ABG pH (7.35-7.45) ABG pCO2 (35-45) mmHg ABG pO2 (83-108) mmHg ABG Total CO2 (19-24) mmol/L ABG O2 Saturation (94-97) % ABG Hematocrit (34.0-46.0) % ABG Sodium (135-146) mmol/L ABG Potassium (3.4-4.5) mmol/L ABG Ionized Calcium (4.5-5.3) mg/dL ABG Glucose (75-99) mg/dL ABG Lactic Acid (0.5-1.6) mmol/L Hemoglobin (11.4-16.0) gm/dL Sodium 135 L (137-145) mmol/L BUN 57 H (7-17) mg/dL Creatinine 1.76 H (0.52-1.04) mg/dL Glucose 156 H (74-99) mg/dL POC Glucose (mg/dL) 180 H (75-99) mg/dL Calcium 8.2 L (8.4-10.2) mg/dL Magnesium (1.6-2.3) mg/dL AST (14-36) U/L Total Protein (6.3-8.2) g/dL Albumin (3.5-5.0) g/dL Arterial Blood Potassium (3.4-4.5) mmol/L Arterial Blood Glucose (75-99) mg/dL Crossmatch 10/03/19 10/03/19 10/03/19 Range/Units 22:00 23:05 23:43 WBC (3.8-10.6) k/uL RBC (3.80-5.40) m/uL Hgb (11.4-16.0) gm/dL Hct (34.0-46.0) % RDW (11.5-15.5) % Plt Count (150-450) k/uL Neutrophils # (1.3-7.7) k/uL Neutrophils # (Manual) (1.3-7.7) k/uL Lymphocytes # (1.0-4.8) k/uL Metamyelocytes # (Man) (0) k/uL INR (<1.2) ABG pH 7.30 L (7.35-7.45) ABG pCO2 49 H (35-45) mmHg ABG pO2 (83-108) mmHg ABG Total CO2 26 H (19-24) mmol/L ABG O2 Saturation 97.5 H (94-97) % ABG Hematocrit (34.0-46.0) % ABG Sodium (135-146) mmol/L ABG Potassium (3.4-4.5) mmol/L ABG Ionized Calcium (4.5-5.3) mg/dL ABG Glucose (75-99) mg/dL ABG Lactic Acid (0.5-1.6) mmol/L Hemoglobin (11.4-16.0) gm/dL Sodium (137-145) mmol/L BUN (7-17) mg/dL Creatinine (0.52-1.04) mg/dL Glucose (74-99) mg/dL POC Glucose (mg/dL) 190 H 205 H (75-99) mg/dL Calcium (8.4-10.2) mg/dL Magnesium (1.6-2.3) mg/dL AST (14-36) U/L Total Protein (6.3-8.2) g/dL Albumin (3.5-5.0) g/dL Arterial Blood Potassium (3.4-4.5) mmol/L Arterial Blood Glucose (75-99) mg/dL Crossmatch 10/04/19 10/04/19 10/04/19 Range/Units 00:11 00:59 01:52 WBC (3.8-10.6) k/uL RBC (3.80-5.40) m/uL Hgb (11.4-16.0) gm/dL Hct (34.0-46.0) % RDW (11.5-15.5) % Plt Count (150-450) k/uL Neutrophils # (1.3-7.7) k/uL Neutrophils # (Manual) (1.3-7.7) k/uL Lymphocytes # (1.0-4.8) k/uL Metamyelocytes # (Man) (0) k/uL INR (<1.2) ABG pH (7.35-7.45) ABG pCO2 (35-45) mmHg ABG pO2 (83-108) mmHg ABG Total CO2 (19-24) mmol/L ABG O2 Saturation (94-97) % ABG Hematocrit (34.0-46.0) % ABG Sodium (135-146) mmol/L ABG Potassium (3.4-4.5) mmol/L ABG Ionized Calcium (4.5-5.3) mg/dL ABG Glucose (75-99) mg/dL ABG Lactic Acid (0.5-1.6) mmol/L Hemoglobin (11.4-16.0) gm/dL Sodium (137-145) mmol/L BUN (7-17) mg/dL Creatinine (0.52-1.04) mg/dL Glucose (74-99) mg/dL POC Glucose (mg/dL) 196 H 195 H 184 H (75-99) mg/dL Calcium (8.4-10.2) mg/dL Magnesium (1.6-2.3) mg/dL AST (14-36) U/L Total Protein (6.3-8.2) g/dL Albumin (3.5-5.0) g/dL Arterial Blood Potassium (3.4-4.5) mmol/L Arterial Blood Glucose (75-99) mg/dL Crossmatch 10/04/19 10/04/19 10/04/19 Range/Units 02:54 03:58 04:20 WBC 12.0 H (3.8-10.6) k/uL RBC 2.83 L (3.80-5.40) m/uL Hgb 8.2 L (11.4-16.0) gm/dL Hct 25.0 L (34.0-46.0) % RDW 17.4 H (11.5-15.5) % Plt Count (150-450) k/uL Neutrophils # 10.2 H (1.3-7.7) k/uL Neutrophils # (Manual) (1.3-7.7) k/uL Lymphocytes # (1.0-4.8) k/uL Metamyelocytes # (Man) (0) k/uL INR (<1.2) ABG pH (7.35-7.45) ABG pCO2 (35-45) mmHg ABG pO2 (83-108) mmHg ABG Total CO2 (19-24) mmol/L ABG O2 Saturation (94-97) % ABG Hematocrit (34.0-46.0) % ABG Sodium (135-146) mmol/L ABG Potassium (3.4-4.5) mmol/L ABG Ionized Calcium (4.5-5.3) mg/dL ABG Glucose (75-99) mg/dL ABG Lactic Acid (0.5-1.6) mmol/L Hemoglobin (11.4-16.0) gm/dL Sodium (137-145) mmol/L BUN (7-17) mg/dL Creatinine (0.52-1.04) mg/dL Glucose (74-99) mg/dL POC Glucose (mg/dL) 192 H 163 H (75-99) mg/dL Calcium (8.4-10.2) mg/dL Magnesium (1.6-2.3) mg/dL AST (14-36) U/L Total Protein (6.3-8.2) g/dL Albumin (3.5-5.0) g/dL Arterial Blood Potassium (3.4-4.5) mmol/L Arterial Blood Glucose (75-99) mg/dL Crossmatch 10/04/19 10/04/19 10/04/19 Range/Units 04:20 04:22 04:59 WBC (3.8-10.6) k/uL RBC (3.80-5.40) m/uL Hgb (11.4-16.0) gm/dL Hct (34.0-46.0) % RDW (11.5-15.5) % Plt Count (150-450) k/uL Neutrophils # (1.3-7.7) k/uL Neutrophils # (Manual) (1.3-7.7) k/uL Lymphocytes # (1.0-4.8) k/uL Metamyelocytes # (Man) (0) k/uL INR (<1.2) ABG pH 7.33 L (7.35-7.45) ABG pCO2 (35-45) mmHg ABG pO2 126 H (83-108) mmHg ABG Total CO2 25 H (19-24) mmol/L ABG O2 Saturation 98.6 H (94-97) % ABG Hematocrit (34.0-46.0) % ABG Sodium (135-146) mmol/L ABG Potassium (3.4-4.5) mmol/L ABG Ionized Calcium (4.5-5.3) mg/dL ABG Glucose (75-99) mg/dL ABG Lactic Acid (0.5-1.6) mmol/L Hemoglobin (11.4-16.0) gm/dL Sodium (137-145) mmol/L BUN 56 H (7-17) mg/dL Creatinine 1.91 H (0.52-1.04) mg/dL Glucose 137 H (74-99) mg/dL POC Glucose (mg/dL) 145 H (75-99) mg/dL Calcium (8.4-10.2) mg/dL Magnesium (1.6-2.3) mg/dL AST 68 H (14-36) U/L Total Protein 5.7 L (6.3-8.2) g/dL Albumin (3.5-5.0) g/dL Arterial Blood Potassium (3.4-4.5) mmol/L Arterial Blood Glucose (75-99) mg/dL Crossmatch 10/04/19 10/04/19 10/04/19 Range/Units 06:06 06:54 08:02 WBC (3.8-10.6) k/uL RBC (3.80-5.40) m/uL Hgb (11.4-16.0) gm/dL Hct (34.0-46.0) % RDW (11.5-15.5) % Plt Count (150-450) k/uL Neutrophils # (1.3-7.7) k/uL Neutrophils # (Manual) (1.3-7.7) k/uL Lymphocytes # (1.0-4.8) k/uL Metamyelocytes # (Man) (0) k/uL INR (<1.2) ABG pH (7.35-7.45) ABG pCO2 (35-45) mmHg ABG pO2 (83-108) mmHg ABG Total CO2 (19-24) mmol/L ABG O2 Saturation (94-97) % ABG Hematocrit (34.0-46.0) % ABG Sodium (135-146) mmol/L ABG Potassium (3.4-4.5) mmol/L ABG Ionized Calcium (4.5-5.3) mg/dL ABG Glucose (75-99) mg/dL ABG Lactic Acid (0.5-1.6) mmol/L Hemoglobin (11.4-16.0) gm/dL Sodium (137-145) mmol/L BUN (7-17) mg/dL Creatinine (0.52-1.04) mg/dL Glucose (74-99) mg/dL POC Glucose (mg/dL) 143 H 135 H 133 H (75-99) mg/dL Calcium (8.4-10.2) mg/dL Magnesium (1.6-2.3) mg/dL AST (14-36) U/L Total Protein (6.3-8.2) g/dL Albumin (3.5-5.0) g/dL Arterial Blood Potassium (3.4-4.5) mmol/L Arterial Blood Glucose (75-99) mg/dL Crossmatch 10/04/19 10/04/19 Range/Units 09:16 12:18 WBC (3.8-10.6) k/uL RBC (3.80-5.40) m/uL Hgb (11.4-16.0) gm/dL Hct (34.0-46.0) % RDW (11.5-15.5) % Plt Count (150-450) k/uL Neutrophils # (1.3-7.7) k/uL Neutrophils # (Manual) (1.3-7.7) k/uL Lymphocytes # (1.0-4.8) k/uL Metamyelocytes # (Man) (0) k/uL INR (<1.2) ABG pH (7.35-7.45) ABG pCO2 (35-45) mmHg ABG pO2 (83-108) mmHg ABG Total CO2 (19-24) mmol/L ABG O2 Saturation (94-97) % ABG Hematocrit (34.0-46.0) % ABG Sodium (135-146) mmol/L ABG Potassium (3.4-4.5) mmol/L ABG Ionized Calcium (4.5-5.3) mg/dL ABG Glucose (75-99) mg/dL ABG Lactic Acid (0.5-1.6) mmol/L Hemoglobin (11.4-16.0) gm/dL Sodium (137-145) mmol/L BUN (7-17) mg/dL Creatinine (0.52-1.04) mg/dL Glucose (74-99) mg/dL POC Glucose (mg/dL) 126 H 114 H (75-99) mg/dL Calcium (8.4-10.2) mg/dL Magnesium (1.6-2.3) mg/dL AST (14-36) U/L Total Protein (6.3-8.2) g/dL Albumin (3.5-5.0) g/dL Arterial Blood Potassium (3.4-4.5) mmol/L Arterial Blood Glucose (75-99) mg/dL Crossmatch Microbiology - Last 24 Hours (Table) 10/03/19 08:22 Urine Culture - Final Urine,Voided Assessment and Plan Assessment: Impression: Status post 1 vessel bypass, REYES to LAD and mitral valve repair postoperative day #1. Acute blood loss anemia, outcome of bypass surgery, this is expected. History of chronic kidney disease. History of diabetes, poorly controlled, patient is on insulin drip. Benign essential hypertension. Postoperative atelectasis, expected after surgery Previous stenting of LAD. Ischemic cardiomyopathy and LV dysfunction with ejection fraction of 35%. Pulmonary hypertension related to valvular heart disease. Recommendation: Continue incentive spirometry. Continue beta blockers Plavix and statins. Wean O2 as tolerated. Continue bronchodilators. Early ambulation. Continue insulin for diabetes management. Continue pain control management. Increase activity as tolerated. Discontinue unnecessary lines and catheters. We will continue to follow. Time with Patient: Less than 30
--- NOTE | 2019-10-04 13:16 | P.CONS ---
History of Present Illness - History of Present Illness This is a pleasant 68 years old female with past medical history of coronary artery disease, heart failure status post stent placement, diabetes mellitus, GERD, hypertension, hyperlipidemia, sleep apnea on CPAP/BiPAP, hypothyroidism. She is a status post 1 vessel bypass surgery and today postop day #1. She also got extubated today and currently she is on nasal cannula at 4 L/m was saturating 95-98%, patient denies chest pain or dyspnea except as surgical site which is expected. Rest of Vit[place] looks stable. Labs reviewed showed mild leukocytosis of 12 K, INR is normal, sugar controlled, creatinine 1.9 (baseline 1.4-2.0) Chest x-ray: Improved radiation Patient is currently on aspirin, metoprolol, oral levothyroxine, Protonix Review of Systems CONSTITUTIONAL: No fever, no malaise, no fatigue. HEENT: No recent visual problems or hearing problems. Denied any sore throat. CARDIOVASCULAR: No orthopnea, PND, no palpitations, no syncope. PULMONARY: No shortness of breath, no cough, no hemoptysis. GASTROINTESTINAL: No diarrhea, no nausea, no vomiting, no abdominal pain. Normoactive bowel sounds. NEUROLOGICAL: No headaches, no weakness, no numbness. HEMATOLOGICAL: Denies any bleeding or petechiae. GENITOURINARY: Denies any burning micturition, frequency, or urgency. MUSCULOSKELETAL/RHEUMATOLOGICAL: Denies any joint pain, swelling, or any muscle pain. ENDOCRINE: Denies any polyuria or polydipsia. Past Medical History Past Medical History: Coronary Artery Disease (CAD), Chest Pain / Angina, Heart Failure, Diabetes Mellitus, Eye Disorder, GERD/Reflux, Hyperlipidemia, Hypert ension, Myocardial Infarction (MO), Renal Disease, Sleep Apnea/CPAP/BIPAP, Thyroid Disorder Additional Past Medical History / Comment(s): Right cataract, Not using CPAP, admission in June for CHF exacerbation Last Myocardial Infarction Date:: 03/31/2015 History of Any Multi-Drug Resistant Organisms: None Reported Past Surgical History: Breast Surgery, Heart Catheterization, Heart Catheterization With Stent Additional Past Surgical History / Comment(s): Left breast bx-neg, buttocks sx- pt stated:" they told me I had gangrene and had sx to remove", lt cataract, several cardiac cath's.-most recent Aug. 2019 Past Anesthesia/Blood Transfusion Reactions: No Reported Reaction Date of Last Stent Placement:: 2016 Smoking Status: Never smoker - Past Family History Father Family Medical History: Unable to Obtain Additional Family Medical History / Comment(s): Father from motor vehicle accident Mother Family Medical History: Diabetes Mellitus, Hypertension Medications and Allergies Home Medications Medication Instructions Recorded Confirmed Type Aspirin 81 mg PO DAILY #1 chewable 06/05/15 09/29/19 Rx Multivitamins, Thera [Multivitamin 1 tab PO DAILY 07/02/15 09/29/19 History (formulary)] Atorvastatin [Lipitor] 80 mg PO HS 08/01/15 09/29/19 History Isosorbide Mononitrate ER [Imdur] 30 mg PO DAILY 08/01/15 09/29/19 History Levothyroxine Sodium [Synthroid] 75 mcg PO DAILY 05/01/16 09/29/19 History Citalopram Hydrobromide [CeleXA] 20 mg PO DAILY tab 08/14/16 09/29/19 Rx Meclizine [Antivert] 12.5 mg PO BID PRN 11/18/16 09/29/19 History Pantoprazole [Protonix] 40 mg PO DAILY 07/25/17 09/29/19 History Allopurinol [Zyloprim] 300 mg PO DAILY 11/26/18 09/29/19 History Carvedilol [Coreg] 6.25 mg PO BID 11/26/18 09/29/19 History Nitroglycerin Sl Tabs [Nitrostat] 0.4 mg SUBLINGUAL Q5M PRN 11/26/18 09/29/19 History Ferrous Sulfate [Iron (65 MG 325 mg PO BID 06/29/19 09/29/19 History Elemental)] INSULIN LISPRO (HumaLOG) [humaLOG] 6 units SQ BID 06/29/19 09/29/19 History Magnesium Oxide [Mag-Ox] 400 mg PO DAILY 06/29/19 09/29/19 History Furosemide [Lasix] 60 mg PO DAILY #60 tablet 07/01/19 09/29/19 Rx Spironolactone [Aldactone] 25 mg PO DAILY #30 tablet 07/01/19 09/29/19 Rx Insulin Detemir (Levemir) [Levemir] 22 unit SQ BID 09/29/19 10/03/19 History Metolazone [Zaroxolyn] 2.5 mg PO DAILY 09/29/19 09/29/19 History amLODIPine [Norvasc] 10 mg PO DAILY 09/29/19 09/29/19 History Allergies Allergy/AdvReac Type Severity Reaction Status Date / Time No Known Allergies Allergy Verified 10/03/19 06:31 Physical Exam Vitals: Vital Signs Temp Pulse Resp BP Pulse Ox 10/04/19 11:33 74 10/04/19 11:24 74 10/04/19 11:00 75 13 107/53 95 10/04/19 10:30 74 11 L 107/53 98 10/04/19 10:00 74 23 107/53 97 10/04/19 09:30 74 16 107/53 95 10/04/19 09:00 73 24 107/53 98 10/04/19 08:30 76 36 H 107/53 92 L 10/04/19 08:22 76 10/04/19 08:00 97.9 F 75 18 107/53 96 10/04/19 07:30 80 19 107/53 98 10/04/19 07:00 80 15 97 10/04/19 06:30 80 12 97 10/04/19 06:00 80 14 98 10/04/19 05:30 80 14 98 10/04/19 05:00 80 15 97 10/04/19 04:57 80 10/04/19 04:35 98 10/04/19 04:30 80 16 99 10/04/19 04:00 80 14 107/53 99 10/04/19 03:30 80 18 98 10/04/19 03:00 80 18 107/53 98 10/04/19 02:30 80 17 99 10/04/19 02:00 80 20 98 10/04/19 01:30 80 19 98 10/04/19 01:00 80 18 105/52 98 10/04/19 00:30 80 19 98 10/04/19 00:00 98.6 F 80 17 98 10/03/19 23:30 80 13 97 10/03/19 23:00 98.2 F 80 12 97/49 98 10/03/19 22:30 80 16 99/45 99 10/03/19 22:00 98.2 F 80 16 99/45 99 10/03/19 21:30 80 16 106/51 99 10/03/19 21:00 97.8 F 80 17 98 10/03/19 20:30 80 21 97 10/03/19 20:15 80 10/03/19 20:02 80 10/03/19 20:00 97.0 F L 79 17 98 10/03/19 19:30 80 17 97 10/03/19 19:00 80 16 97 10/03/19 18:30 80 16 96 10/03/19 18:00 80 16 96 10/03/19 17:30 80 13 96 10/03/19 17:00 80 15 97 10/03/19 16:50 80 16 96 10/03/19 16:40 80 16 96 10/03/19 16:30 80 16 97 10/03/19 16:20 80 16 97 10/03/19 16:10 80 16 98 10/03/19 16:00 79 14 99 10/03/19 15:50 79 18 99 10/03/19 15:44 79 10/03/19 15:40 80 16 99 10/03/19 15:30 16 100 10/03/19 15:20 80 16 100 10/03/19 15:10 80 16 100 10/03/19 15:00 94.8 F L 78 16 100 10/03/19 14:54 19 Intake and Output 10/03/19 10/04/19 10/04/19 22:59 06:59 14:59 Intake Total 1169.777 680.840 151 Output Total 1565 835 295 Balance -395.223 -154.160 -144 Intake: IV 153 92 151 cardiac index 90 20 130 pressure bags 63 72 21 Intake, IV Titration 1016.777 588.840 Amount ACETAMINOPHEN IV (For NPO 100 ) 1,000 mg In Empty Bag 1 bag @ 400 mls/hr IVPB Q6HR [facility] Rx#:[id number] Albumin Human 5% 250 ml 250 In Empty Bag 1 bag @ 250 mls/hr IVPB Q1HR PRN Rx#: [id number] Insulin Regular 100 unit 9.107 44.930 In Sodium Chloride 0.9% 100 ml @ Per Protocol IV .Q0M [facility] Rx#:[id number] Milrinone-D5w Pmx 20 mg 64.272 In Dextrose/Water 1 100ml .bag @ 0.3 MCG/KG/MIN 7. 416 mls/hr IV .[id number] [facility] Rx#:[id number] Norepinephrine 4 mg In 39.872 79.638 Sodium Chloride 0.9% 250 ml @ 0.05 MCG/KG/MIN 15. 697 mls/hr IV .[id number] [facility] Rx#:[id number] Potassium Chloride 10 meq 200 In Water For Injection 1 100ml.bag @ 100 mls/hr IVPB Q1H [facility] Rx#: [id number] Propofol 1,000 mg In 17.798 Empty Bag 1 bag @ Titrate IV .Q0M [facility] Rx#: [id number] Sodium Chloride 0.9% 1, 350 400 000 ml @ 20 mls/hr IV . Q24H [facility] Rx#:[id number] ceFAZolin 2 gm In Sodium 50 Chloride 0.9% 50 ml @ 100 mls/hr IVPB Q8HR [facility] Rx# :[id number] Output: Chest Tube Drainage 415 365 90 left pleural 185 195 30 mediastinal x2 170 130 20 right pleural 60 40 40 Urine 1150 470 205 Other: Voiding Method Indwelling Catheter Indwelling Catheter Indwelling Catheter Weight 90.8 kg ABP, PAP, CO, CI - Last 8 Hours Arterial Blood Pressure 103/41 Arterial Blood Pressure 109/42 Arterial Blood Pressure 100/41 Arterial Blood Pressure 92/35 Arterial Blood Pressure 98/36 Arterial Blood Pressure 102/37 Arterial Blood Pressure 100/38 Arterial Blood Pressure 98/40 Arterial Blood Pressure 107/43 Arterial Blood Pressure 96/41 Arterial Blood Pressure 128/51 Arterial Blood Pressure 106/46 Pulmonary Artery Pressure 40/15 Pulmonary Artery Pressure 41/16 Pulmonary Artery Pressure 39/16 Pulmonary Artery Pressure 39/12 Pulmonary Artery Pressure 39/12 Pulmonary Artery Pressure 44/14 Pulmonary Artery Pressure 41/12 Pulmonary Artery Pressure 43/16 Pulmonary Artery Pressure 43/16 Pulmonary Artery Pressure 40/17 Pulmonary Artery Pressure 38/17 Pulmonary Artery Pressure 40/19 Cardiac Output 5 Cardiac Output 5 Cardiac Output 5 Cardiac Output 5 Cardiac Output 5 Cardiac Output 5.5 Cardiac Index 2.8 Cardiac Index 2.8 Cardiac Index 2.8 Cardiac Index 2.8 Cardiac Index 2.8 Cardiac Index 3.1 GENERAL: The patient is alert and oriented x3, not in any acute distress. Well developed, well nourished. HEENT: Pupils are round and equally reacting to light. EOMI. No scleral icterus. No conjunctival pallor. Normocephalic, atraumatic. No pharyngeal erythema. No thyromegaly. -CARDIOVASCULAR: S1 and S2 present. No murmurs, rubs, or gallops. Sternal wound is in a dressing PULMONARY: Chest is clear to auscultation, no wheezing or crackles. ABDOMEN: Soft, nontender, nondistended, normoactive bowel sounds. No palpable organomegaly. MUSCULOSKELETAL: No joint swelling or deformity. EXTREMITIES: No cyanosis, clubbing, or pedal edema. NEUROLOGICAL: Gross neurological examination did not reveal any focal deficits. SKIN: No rashes. No petechiae Results CBC & Chem 7: 10/04/19 04:20 10/04/19 04:20 Labs: Abnormal Lab Results - Last 24 Hours (Table) 09/29/19 10/03/19 10/03/19 Range/Units 09:00 08:53 10:21 WBC (3.8-10.6) k/uL RBC (3.80-5.40) m/uL Hgb (11.4-16.0) gm/dL Hct (34.0-46.0) % RDW (11.5-15.5) % Plt Count (150-450) k/uL Neutrophils # (1.3-7.7) k/uL Neutrophils # (Manual) (1.3-7.7) k/uL Lymphocytes # (1.0-4.8) k/uL Metamyelocytes # (Man) (0) k/uL INR (<1.2) ABG pH 7.33 L 7.28 L (7.35-7.45) ABG pCO2 (35-45) mmHg ABG pO2 >420 H 152 H (83-108) mmHg ABG Total CO2 (19-24) mmol/L ABG O2 Saturation 99.9 H 98.7 H (94-97) % ABG Hematocrit (34.0-46.0) % ABG Sodium (135-146) mmol/L ABG Potassium (3.4-4.5) mmol/L ABG Ionized Calcium (4.5-5.3) mg/dL ABG Glucose 267 H 208 H (75-99) mg/dL ABG Lactic Acid 1.8 H (0.5-1.6) mmol/L Hemoglobin (11.4-16.0) gm/dL Sodium (137-145) mmol/L BUN (7-17) mg/dL Creatinine (0.52-1.04) mg/dL Glucose (74-99) mg/dL POC Glucose (mg/dL) (75-99) mg/dL Calcium (8.4-10.2) mg/dL Magnesium (1.6-2.3) mg/dL AST (14-36) U/L Total Protein (6.3-8.2) g/dL Albumin (3.5-5.0) g/dL Arterial Blood Potassium (3.4-4.5) mmol/L Arterial Blood Glucose 267 H 208 H (75-99) mg/dL Crossmatch See Detail 10/03/19 10/03/19 10/03/19 Range/Units 11:13 11:56 13:03 WBC (3.8-10.6) k/uL RBC (3.80-5.40) m/uL Hgb (11.4-16.0) gm/dL Hct (34.0-46.0) % RDW (11.5-15.5) % Plt Count (150-450) k/uL Neutrophils # (1.3-7.7) k/uL Neutrophils # (Manual) (1.3-7.7) k/uL Lymphocytes # (1.0-4.8) k/uL Metamyelocytes # (Man) (0) k/uL INR (<1.2) ABG pH 7.34 L (7.35-7.45) ABG pCO2 (35-45) mmHg ABG pO2 >420 H 315 H 315 H (83-108) mmHg ABG Total CO2 25 H (19-24) mmol/L ABG O2 Saturation 100.0 H 99.7 H 99.8 H (94-97) % ABG Hematocrit 25 L 24 L 22 L (34.0-46.0) % ABG Sodium 134 L 132 L (135-146) mmol/L ABG Potassium 3.3 L (3.4-4.5) mmol/L ABG Ionized Calcium 4.2 L 4.4 L (4.5-5.3) mg/dL ABG Glucose 165 H 259 H 222 H (75-99) mg/dL ABG Lactic Acid 1.8 H 2.0 H 2.8 H* (0.5-1.6) mmol/L Hemoglobin 8.0 L 7.8 L 7.3 L (11.4-16.0) gm/dL Sodium (137-145) mmol/L BUN (7-17) mg/dL Creatinine (0.52-1.04) mg/dL Glucose (74-99) mg/dL POC Glucose (mg/dL) (75-99) mg/dL Calcium (8.4-10.2) mg/dL Magnesium (1.6-2.3) mg/dL AST (14-36) U/L Total Protein (6.3-8.2) g/dL Albumin (3.5-5.0) g/dL Arterial Blood Potassium 3.3 L (3.4-4.5) mmol/L Arterial Blood Glucose 165 H 259 H 222 H (75-99) mg/dL Crossmatch 10/03/19 10/03/19 10/03/19 Range/Units 14:25 15:08 15:08 WBC 12.3 H (3.8-10.6) k/uL RBC 3.00 L (3.80-5.40) m/uL Hgb 8.7 L D (11.4-16.0) gm/dL Hct 26.4 L (34.0-46.0) % RDW 16.9 H (11.5-15.5) % Plt Count 146 L (150-450) k/uL Neutrophils # 9.6 H (1.3-7.7) k/uL Neutrophils # (Manual) (1.3-7.7) k/uL Lymphocytes # (1.0-4.8) k/uL Metamyelocytes # (Man) (0) k/uL INR 1.2 H (<1.2) ABG pH 7.34 L (7.35-7.45) ABG pCO2 (35-45) mmHg ABG pO2 366 H (83-108) mmHg ABG Total CO2 (19-24) mmol/L ABG O2 Saturation 99.6 H (94-97) % ABG Hematocrit 25 L (34.0-46.0) % ABG Sodium (135-146) mmol/L ABG Potassium 3.3 L (3.4-4.5) mmol/L ABG Ionized Calcium (4.5-5.3) mg/dL ABG Glucose 184 H (75-99) mg/dL ABG Lactic Acid 1.8 H (0.5-1.6) mmol/L Hemoglobin 8.3 L (11.4-16.0) gm/dL Sodium (137-145) mmol/L BUN (7-17) mg/dL Creatinine (0.52-1.04) mg/dL Glucose (74-99) mg/dL POC Glucose (mg/dL) (75-99) mg/dL Calcium (8.4-10.2) mg/dL Magnesium (1.6-2.3) mg/dL AST (14-36) U/L Total Protein (6.3-8.2) g/dL Albumin (3.5-5.0) g/dL Arterial Blood Potassium 3.3 L (3.4-4.5) mmol/L Arterial Blood Glucose 184 H (75-99) mg/dL Crossmatch 10/03/19 10/03/19 10/03/19 Range/Units 15:08 15:09 15:46 WBC (3.8-10.6) k/uL RBC (3.80-5.40) m/uL Hgb (11.4-16.0) gm/dL Hct (34.0-46.0) % RDW (11.5-15.5) % Plt Count (150-450) k/uL Neutrophils # (1.3-7.7) k/uL Neutrophils # (Manual) (1.3-7.7) k/uL Lymphocytes # (1.0-4.8) k/uL Metamyelocytes # (Man) (0) k/uL INR (<1.2) ABG pH 7.30 L (7.35-7.45) ABG pCO2 51 H (35-45) mmHg ABG pO2 329 H (83-108) mmHg ABG Total CO2 26 H (19-24) mmol/L ABG O2 Saturation 99.7 H (94-97) % ABG Hematocrit (34.0-46.0) % ABG Sodium (135-146) mmol/L ABG Potassium (3.4-4.5) mmol/L ABG Ionized Calcium (4.5-5.3) mg/dL ABG Glucose (75-99) mg/dL ABG Lactic Acid (0.5-1.6) mmol/L Hemoglobin (11.4-16.0) gm/dL Sodium 136 L (137-145) mmol/L BUN 62 H (7-17) mg/dL Creatinine 1.74 H (0.52-1.04) mg/dL Glucose 146 H (74-99) mg/dL POC Glucose (mg/dL) 161 H (75-99) mg/dL Calcium 8.2 L (8.4-10.2) mg/dL Magnesium 2.6 H (1.6-2.3) mg/dL AST 56 H (14-36) U/L Total Protein 5.3 L (6.3-8.2) g/dL Albumin 3.1 L (3.5-5.0) g/dL Arterial Blood Potassium (3.4-4.5) mmol/L Arterial Blood Glucose (75-99) mg/dL Crossmatch 10/03/19 10/03/19 10/03/19 Range/Units 16:00 17:13 17:15 WBC 13.0 H (3.8-10.6) k/uL RBC 3.13 L (3.80-5.40) m/uL Hgb 8.6 L (11.4-16.0) gm/dL Hct 27.1 L (34.0-46.0) % RDW 17.3 H (11.5-15.5) % Plt Count (150-450) k/uL Neutrophils # (1.3-7.7) k/uL Neutrophils # (Manual) 10.00 H (1.3-7.7) k/uL Lymphocytes # (1.0-4.8) k/uL Metamyelocytes # (Man) 0.13 H (0) k/uL INR (<1.2) ABG pH (7.35-7.45) ABG pCO2 (35-45) mmHg ABG pO2 (83-108) mmHg ABG Total CO2 (19-24) mmol/L ABG O2 Saturation (94-97) % ABG Hematocrit (34.0-46.0) % ABG Sodium (135-146) mmol/L ABG Potassium (3.4-4.5) mmol/L ABG Ionized Calcium (4.5-5.3) mg/dL ABG Glucose (75-99) mg/dL ABG Lactic Acid (0.5-1.6) mmol/L Hemoglobin (11.4-16.0) gm/dL Sodium (137-145) mmol/L BUN (7-17) mg/dL Creatinine (0.52-1.04) mg/dL Glucose (74-99) mg/dL POC Glucose (mg/dL) 140 H 143 H (75-99) mg/dL Calcium (8.4-10.2) mg/dL Magnesium (1.6-2.3) mg/dL AST (14-36) U/L Total Protein (6.3-8.2) g/dL Albumin (3.5-5.0) g/dL Arterial Blood Potassium (3.4-4.5) mmol/L Arterial Blood Glucose (75-99) mg/dL Crossmatch 10/03/19 10/03/19 10/03/19 Range/Units 18:08 19:06 20:05 WBC (3.8-10.6) k/uL RBC (3.80-5.40) m/uL Hgb (11.4-16.0) gm/dL Hct (34.0-46.0) % RDW (11.5-15.5) % Plt Count (150-450) k/uL Neutrophils # (1.3-7.7) k/uL Neutrophils # (Manual) (1.3-7.7) k/uL Lymphocytes # (1.0-4.8) k/uL Metamyelocytes # (Man) (0) k/uL INR (<1.2) ABG pH (7.35-7.45) ABG pCO2 (35-45) mmHg ABG pO2 (83-108) mmHg ABG Total CO2 (19-24) mmol/L ABG O2 Saturation (94-97) % ABG Hematocrit (34.0-46.0) % ABG Sodium (135-146) mmol/L ABG Potassium (3.4-4.5) mmol/L ABG Ionized Calcium (4.5-5.3) mg/dL ABG Glucose (75-99) mg/dL ABG Lactic Acid (0.5-1.6) mmol/L Hemoglobin (11.4-16.0) gm/dL Sodium (137-145) mmol/L BUN (7-17) mg/dL Creatinine (0.52-1.04) mg/dL Glucose (74-99) mg/dL POC Glucose (mg/dL) 147 H 161 H 168 H (75-99) mg/dL Calcium (8.4-10.2) mg/dL Magnesium (1.6-2.3) mg/dL AST (14-36) U/L Total Protein (6.3-8.2) g/dL Albumin (3.5-5.0) g/dL Arterial Blood Potassium (3.4-4.5) mmol/L Arterial Blood Glucose (75-99) mg/dL Crossmatch 10/03/19 10/03/19 10/03/19 Range/Units 20:50 20:50 20:56 WBC 11.3 H (3.8-10.6) k/uL RBC 2.81 L (3.80-5.40) m/uL Hgb 8.1 L (11.4-16.0) gm/dL Hct 24.8 L (34.0-46.0) % RDW 17.0 H (11.5-15.5) % Plt Count (150-450) k/uL Neutrophils # 9.7 H (1.3-7.7) k/uL Neutrophils # (Manual) (1.3-7.7) k/uL Lymphocytes # 0.9 L (1.0-4.8) k/uL Metamyelocytes # (Man) (0) k/uL INR (<1.2) ABG pH (7.35-7.45) ABG pCO2 (35-45) mmHg ABG pO2 (83-108) mmHg ABG Total CO2 (19-24) mmol/L ABG O2 Saturation (94-97) % ABG Hematocrit (34.0-46.0) % ABG Sodium (135-146) mmol/L ABG Potassium (3.4-4.5) mmol/L ABG Ionized Calcium (4.5-5.3) mg/dL ABG Glucose (75-99) mg/dL ABG Lactic Acid (0.5-1.6) mmol/L Hemoglobin (11.4-16.0) gm/dL Sodium 135 L (137-145) mmol/L BUN 57 H (7-17) mg/dL Creatinine 1.76 H (0.52-1.04) mg/dL Glucose 156 H (74-99) mg/dL POC Glucose (mg/dL) 180 H (75-99) mg/dL Calcium 8.2 L (8.4-10.2) mg/dL Magnesium (1.6-2.3) mg/dL AST (14-36) U/L Total Protein (6.3-8.2) g/dL Albumin (3.5-5.0) g/dL Arterial Blood Potassium (3.4-4.5) mmol/L Arterial Blood Glucose (75-99) mg/dL Crossmatch 10/03/19 10/03/19 10/03/19 Range/Units 22:00 23:05 23:43 WBC (3.8-10.6) k/uL RBC (3.80-5.40) m/uL Hgb (11.4-16.0) gm/dL Hct (34.0-46.0) % RDW (11.5-15.5) % Plt Count (150-450) k/uL Neutrophils # (1.3-7.7) k/uL Neutrophils # (Manual) (1.3-7.7) k/uL Lymphocytes # (1.0-4.8) k/uL Metamyelocytes # (Man) (0) k/uL INR (<1.2) ABG pH 7.30 L (7.35-7.45) ABG pCO2 49 H (35-45) mmHg ABG pO2 (83-108) mmHg ABG Total CO2 26 H (19-24) mmol/L ABG O2 Saturation 97.5 H (94-97) % ABG Hematocrit (34.0-46.0) % ABG Sodium (135-146) mmol/L ABG Potassium (3.4-4.5) mmol/L ABG Ionized Calcium (4.5-5.3) mg/dL ABG Glucose (75-99) mg/dL ABG Lactic Acid (0.5-1.6) mmol/L Hemoglobin (11.4-16.0) gm/dL Sodium (137-145) mmol/L BUN (7-17) mg/dL Creatinine (0.52-1.04) mg/dL Glucose (74-99) mg/dL POC Glucose (mg/dL) 190 H 205 H (75-99) mg/dL Calcium (8.4-10.2) mg/dL Magnesium (1.6-2.3) mg/dL AST (14-36) U/L Total Protein (6.3-8.2) g/dL Albumin (3.5-5.0) g/dL Arterial Blood Potassium (3.4-4.5) mmol/L Arterial Blood Glucose (75-99) mg/dL Crossmatch 10/04/19 10/04/19 10/04/19 Range/Units 00:11 00:59 01:52 WBC (3.8-10.6) k/uL RBC (3.80-5.40) m/uL Hgb (11.4-16.0) gm/dL Hct (34.0-46.0) % RDW (11.5-15.5) % Plt Count (150-450) k/uL Neutrophils # (1.3-7.7) k/uL Neutrophils # (Manual) (1.3-7.7) k/uL Lymphocytes # (1.0-4.8) k/uL Metamyelocytes # (Man) (0) k/uL INR (<1.2) ABG pH (7.35-7.45) ABG pCO2 (35-45) mmHg ABG pO2 (83-108) mmHg ABG Total CO2 (19-24) mmol/L ABG O2 Saturation (94-97) % ABG Hematocrit (34.0-46.0) % ABG Sodium (135-146) mmol/L ABG Potassium (3.4-4.5) mmol/L ABG Ionized Calcium (4.5-5.3) mg/dL ABG Glucose (75-99) mg/dL ABG Lactic Acid (0.5-1.6) mmol/L Hemoglobin (11.4-16.0) gm/dL Sodium (137-145) mmol/L BUN (7-17) mg/dL Creatinine (0.52-1.04) mg/dL Glucose (74-99) mg/dL POC Glucose (mg/dL) 196 H 195 H 184 H (75-99) mg/dL Calcium (8.4-10.2) mg/dL Magnesium (1.6-2.3) mg/dL AST (14-36) U/L Total Protein (6.3-8.2) g/dL Albumin (3.5-5.0) g/dL Arterial Blood Potassium (3.4-4.5) mmol/L Arterial Blood Glucose (75-99) mg/dL Crossmatch 10/04/19 10/04/19 10/04/19 Range/Units 02:54 03:58 04:20 WBC 12.0 H (3.8-10.6) k/uL RBC 2.83 L (3.80-5.40) m/uL Hgb 8.2 L (11.4-16.0) gm/dL Hct 25.0 L (34.0-46.0) % RDW 17.4 H (11.5-15.5) % Plt Count (150-450) k/uL Neutrophils # 10.2 H (1.3-7.7) k/uL Neutrophils # (Manual) (1.3-7.7) k/uL Lymphocytes # (1.0-4.8) k/uL Metamyelocytes # (Man) (0) k/uL INR (<1.2) ABG pH (7.35-7.45) ABG pCO2 (35-45) mmHg ABG pO2 (83-108) mmHg ABG Total CO2 (19-24) mmol/L ABG O2 Saturation (94-97) % ABG Hematocrit (34.0-46.0) % ABG Sodium (135-146) mmol/L ABG Potassium (3.4-4.5) mmol/L ABG Ionized Calcium (4.5-5.3) mg/dL ABG Glucose (75-99) mg/dL ABG Lactic Acid (0.5-1.6) mmol/L Hemoglobin (11.4-16.0) gm/dL Sodium (137-145) mmol/L BUN (7-17) mg/dL Creatinine (0.52-1.04) mg/dL Glucose (74-99) mg/dL POC Glucose (mg/dL) 192 H 163 H (75-99) mg/dL Calcium (8.4-10.2) mg/dL Magnesium (1.6-2.3) mg/dL AST (14-36) U/L Total Protein (6.3-8.2) g/dL Albumin (3.5-5.0) g/dL Arterial Blood Potassium (3.4-4.5) mmol/L Arterial Blood Glucose (75-99) mg/dL Crossmatch 10/04/19 10/04/19 10/04/19 Range/Units 04:20 04:22 04:59 WBC (3.8-10.6) k/uL RBC (3.80-5.40) m/uL Hgb (11.4-16.0) gm/dL Hct (34.0-46.0) % RDW (11.5-15.5) % Plt Count (150-450) k/uL Neutrophils # (1.3-7.7) k/uL Neutrophils # (Manual) (1.3-7.7) k/uL Lymphocytes # (1.0-4.8) k/uL Metamyelocytes # (Man) (0) k/uL INR (<1.2) ABG pH 7.33 L (7.35-7.45) ABG pCO2 (35-45) mmHg ABG pO2 126 H (83-108) mmHg ABG Total CO2 25 H (19-24) mmol/L ABG O2 Saturation 98.6 H (94-97) % ABG Hematocrit (34.0-46.0) % ABG Sodium (135-146) mmol/L ABG Potassium (3.4-4.5) mmol/L ABG Ionized Calcium (4.5-5.3) mg/dL ABG Glucose (75-99) mg/dL ABG Lactic Acid (0.5-1.6) mmol/L Hemoglobin (11.4-16.0) gm/dL Sodium (137-145) mmol/L BUN 56 H (7-17) mg/dL Creatinine 1.91 H (0.52-1.04) mg/dL Glucose 137 H (74-99) mg/dL POC Glucose (mg/dL) 145 H (75-99) mg/dL Calcium (8.4-10.2) mg/dL Magnesium (1.6-2.3) mg/dL AST 68 H (14-36) U/L Total Protein 5.7 L (6.3-8.2) g/dL Albumin (3.5-5.0) g/dL Arterial Blood Potassium (3.4-4.5) mmol/L Arterial Blood Glucose (75-99) mg/dL Crossmatch 10/04/19 10/04/19 10/04/19 Range/Units 06:06 06:54 08:02 WBC (3.8-10.6) k/uL RBC (3.80-5.40) m/uL Hgb (11.4-16.0) gm/dL Hct (34.0-46.0) % RDW (11.5-15.5) % Plt Count (150-450) k/uL Neutrophils # (1.3-7.7) k/uL Neutrophils # (Manual) (1.3-7.7) k/uL Lymphocytes # (1.0-4.8) k/uL Metamyelocytes # (Man) (0) k/uL INR (<1.2) ABG pH (7.35-7.45) ABG pCO2 (35-45) mmHg ABG pO2 (83-108) mmHg ABG Total CO2 (19-24) mmol/L ABG O2 Saturation (94-97) % ABG Hematocrit (34.0-46.0) % ABG Sodium (135-146) mmol/L ABG Potassium (3.4-4.5) mmol/L ABG Ionized Calcium (4.5-5.3) mg/dL ABG Glucose (75-99) mg/dL ABG Lactic Acid (0.5-1.6) mmol/L Hemoglobin (11.4-16.0) gm/dL Sodium (137-145) mmol/L BUN (7-17) mg/dL Creatinine (0.52-1.04) mg/dL Glucose (74-99) mg/dL POC Glucose (mg/dL) 143 H 135 H 133 H (75-99) mg/dL Calcium (8.4-10.2) mg/dL Magnesium (1.6-2.3) mg/dL AST (14-36) U/L Total Protein (6.3-8.2) g/dL Albumin (3.5-5.0) g/dL Arterial Blood Potassium (3.4-4.5) mmol/L Arterial Blood Glucose (75-99) mg/dL Crossmatch 10/04/19 10/04/19 Range/Units 09:16 12:18 WBC (3.8-10.6) k/uL RBC (3.80-5.40) m/uL Hgb (11.4-16.0) gm/dL Hct (34.0-46.0) % RDW (11.5-15.5) % Plt Count (150-450) k/uL Neutrophils # (1.3-7.7) k/uL Neutrophils # (Manual) (1.3-7.7) k/uL Lymphocytes # (1.0-4.8) k/uL Metamyelocytes # (Man) (0) k/uL INR (<1.2) ABG pH (7.35-7.45) ABG pCO2 (35-45) mmHg ABG pO2 (83-108) mmHg ABG Total CO2 (19-24) mmol/L ABG O2 Saturation (94-97) % ABG Hematocrit (34.0-46.0) % ABG Sodium (135-146) mmol/L ABG Potassium (3.4-4.5) mmol/L ABG Ionized Calcium (4.5-5.3) mg/dL ABG Glucose (75-99) mg/dL ABG Lactic Acid (0.5-1.6) mmol/L Hemoglobin (11.4-16.0) gm/dL Sodium (137-145) mmol/L BUN (7-17) mg/dL Creatinine (0.52-1.04) mg/dL Glucose (74-99) mg/dL POC Glucose (mg/dL) 126 H 114 H (75-99) mg/dL Calcium (8.4-10.2) mg/dL Magnesium (1.6-2.3) mg/dL AST (14-36) U/L Total Protein (6.3-8.2) g/dL Albumin (3.5-5.0) g/dL Arterial Blood Potassium (3.4-4.5) mmol/L Arterial Blood Glucose (75-99) mg/dL Crossmatch Microbiology - Last 24 Hours (Table) 10/03/19 08:22 Urine Culture - Final Urine,Voided Assessment and Plan Assessment: coronary artery disease, status post 1 vessel bypass surgery Hypertension Diabetes mellitus Hyperlipidemia chronic kidney disease, stage III History of coronary artery disease, status post stent placement GERD Current systolic cardiac failure, EF 35-40% Severe mitral regurgitation, severe tricuspid regurgitation Severe pulmonary hypertension Hypothyroidism Sleep apnea on CPAP/BiPAP chronic Plan: This is a pleasant 68 years old female who was admitted for cardiac bypass surgery, continue with aspirin, metoprolol and levothyroxine. Coronary Labs and medication were reviewed.. Continue same treatment. Continue with symptomatic treatment. Resume home medication. Monitor lytes and vitals. DVT and GI prophylaxis. Further recommendations of the clinical course of the patient DVT prophylaxis: Subcutaneous heparin GI Prophylaxis: Ppi Prognosis is guarded Thank you for consulting us
[2019-10-04 13:23] LABS: Glucose,Whole Blood 141 mg/dL (75-99)
[2019-10-04] MEDS: CLOPIDOGREL 75 MG TAB PO SCH (14:18)
[2019-10-04] MEDS: PANTOPRAZOLE 40 MG TABLET PO SCH (14:18)
[2019-10-04] MEDS: allopurinoL 300 MG TAB PO SCH (14:18)
[2019-10-04] MEDS: LEVOTHYROXINE 75 MCG TAB PO SCH (14:18)
[2019-10-04] MEDS: METOPROLOL TARTRATE 12.5 MG TAB PO SCH ×2 (14:18→21:17)
[2019-10-04] MEDS: ATORVASTATIN 40 MG TAB PO SCH (14:18)
[2019-10-04] MEDS: ASPIRIN 325 MG TAB PO SCH (14:18)
[2019-10-04] MEDS: FERROUS SULFATE 325 MG TAB PO SCH ×2 (14:18→15:42)
[2019-10-04] MEDS: CITALOPRAM HYDROBROMIDE 20 MG TAB PO SCH (14:19)
[2019-10-04] MEDS: SODIUM CHLORIDE 0.9% 1,000 ML IV SCH (14:19)
[2019-10-04 14:24] LABS: Glucose,Whole Blood 144 mg/dL (75-99)
[2019-10-04] MEDS: CLEVIDIPINE BUTYRATE 25 MG in EMPTY BAG 1 BAG IV SCH (14:28)
[2019-10-04 17:03] LABS: Glucose,Whole Blood 134 mg/dL (75-99)
--- NOTE | 2019-10-04 19:00 | CONS ---
CONSULTATION Cony is a 68-year-old lady who is admitted to hospital for bypass surgery with REYES to LAD, mitral valve repair and left atrial appendage exclusion with clip surgery. This morning patient has been extubated. She is stable hemodynamically but appears pleasantly confused. She denies any symptoms. Her history is significant for insulin- requiring diabetes, chronic congestive heart failure, hypertension and dyslipidemia. At the moment she is on aspirin, Lipitor, Plavix, Synthroid and Lopressor. PAST MEDICAL HISTORY: Past medical history is significant for coronary artery disease, mitral and tricuspid regurgitation, congestive heart failure, hypertension, diabetes, dyslipidemia. MEDICATIONS: Medications at home include Levemir, Norvasc, Zaroxolyn, Aldactone, Protonix, Antivert, magnesium, Synthroid, Imdur, insulin, Lasix, Coreg, Lipitor, aspirin, Zyloprim. ALLERGIES: NO KNOWN DRUG ALLERGIES. FAMILY HISTORY: Negative for premature coronary artery disease. SOCIAL HISTORY: Negative for current smoking, EtOH abuse or drug abuse. REVIEW OF SYSTEMS: HEENT is unremarkable. CARDIAC: As described above. RESPIRATORY: As described above. GI: Negative. GENITOURINARY: Negative. ALLERGY: Negative. IMMUNOLOGY: Negative. SKIN: Negative. MUSCULOSKELETAL: Negative. ENDOCRINE: Negative. DERMATOLOGY: Negative. CONSTITUTIONAL: Negative. ONCOLOGICAL: Negative. BELL PERSON: Negative. PHYSICAL EXAMINATION: Heart rate is 74 beats per minute. Blood pressure is 107/50, respiratory rate is 18. There is no jugular venous distention. Chest exam reveals diminished air entry at the bases. Heart exam reveals first and second heart sounds. No murmur. Abdomen is soft. Examination of extremities revealed trace edema. Peripheral pulses are felt. LABS: Labs show that BUN is 56, creatinine is 1.9, potassium is 5, hemoglobin is 8.2, platelet count is 160. ASSESSMENT: 1. Coronary artery disease, status post coronary artery bypass grafting with REYES to LAD. 2. Mitral regurgitation, status post mitral valve repair. 3. Confusional state. PLAN: Patient is doing fairly well. Patient is postoperative day number 1, stable hemodynamically. MMODL / IJN: [id number] /
[2019-10-04 20:03] LABS: Glucose,Whole Blood 96 mg/dL (75-99)
[2019-10-04 21:04] LABS: Glucose,Whole Blood 114 mg/dL (75-99)
[2019-10-04] MEDS: SENNOSIDES-DOCUSATE SODIUM 1 EACH TAB PO SCH (21:17)
[2019-10-04 22:05] LABS: Glucose,Whole Blood 131 mg/dL (75-99)
[2019-10-04 22:58] LABS: Glucose,Whole Blood 140 mg/dL (75-99)
[2019-10-04 23:52] LABS: Glucose,Whole Blood 127 mg/dL (75-99)
[2019-10-05 01:50] LABS: Glucose,Whole Blood 128 mg/dL (75-99)
[2019-10-05 03:58] LABS: Glucose,Whole Blood 110 mg/dL (75-99)
[2019-10-05 04:10] LABS: Anisocytosis Slight; Basophils % (A) 0 %; Eosinophils # (A) 0.1 k/uL (0-0.7); Eosinophils % (A) 1 %; HCT 23.1 % (34.0-46.0); HGB 7.4 gm/dL (11.4-16.0); Lymphocytes # (A) 1.3 k/uL (1.0-4.8); Lymphocytes % (A) 10 %; MCH 27.9 pg (25.0-35.0); MCHC 31.8 g/dL (31.0-37.0); MCV 87.7 fL (80.0-100.0); Mean Platelet Volume 9.1; Monocytes # (A) 0.7 k/uL (0-1.0); Monocytes % (A) 6 %; Neutrophils # (A) 10.3 k/uL (1.3-7.7); Neutrophils % (A) 82 %; Platelet Count 144 k/uL (150-450); RBC 2.64 m/uL (3.80-5.40); RDW 17.9 % (11.5-15.5); WBC 12.5 k/uL (3.8-10.6)
[2019-10-05 04:13] LABS: Ionized Calcium 5.2 mg/dL (4.5-5.3)
[2019-10-05 04:20] LABS: Albumin 3.1 g/dL (3.5-5.0); Calcium 8.7 mg/dL (8.4-10.2); Potassium 4.3 mmol/L (3.5-5.1); Total Bilirubin 0.6 mg/dL (0.2-1.3); Total Protein 5.5 g/dL (6.3-8.2)
[2019-10-05 04:59] LABS: Glucose,Whole Blood 129 mg/dL (75-99)
[2019-10-05 06:03] LABS: Glucose,Whole Blood 147 mg/dL (75-99)
[2019-10-05] MEDS: LEVOTHYROXINE 75 MCG TAB PO SCH (06:18)
[2019-10-05 06:51] LABS: Glucose,Whole Blood 147 mg/dL (75-99)
[2019-10-05] MEDS: IPRATROPIUM-ALBUTEROL 3 ML NEB INHALATION SCH ×4 (07:38→20:20)
[2019-10-05 08:10] LABS: Glucose,Whole Blood 141 mg/dL (75-99)
--- NOTE | 2019-10-05 08:19 | XR ---
EXAMINATION TYPE: XR chest 1V portable DATE OF EXAM: 10/05/2019 COMPARISON: 10/04/2019 HISTORY: Postop cardiac surgery TECHNIQUE: Single frontal view of the chest is obtained. FINDINGS: There is postsurgical changes. There is [place]-Josr catheter. No sizable pneumothorax. Bilat eral consolidation and small effusion. No overt failure. IMPRESSION: Postoperative change with cardiomegaly and no sizable pneumothorax. Bilateral atelectasis or infiltra te stable.
[2019-10-05] MEDS ORDERED: FUROSEMIDE 10 MG/ML 2 ML VIAL IV ONE (08:43)
[2019-10-05 09:18] LABS: Glucose,Whole Blood 148 mg/dL (75-99)
[2019-10-05] MEDS: FERROUS SULFATE 325 MG TAB PO SCH ×2 (09:19→18:20)
[2019-10-05] MEDS: PANTOPRAZOLE 40 MG TABLET PO SCH (09:19)
[2019-10-05] MEDS: ONDANSETRON 4 MG/2 ML VIAL IVP PRN (09:19)
[2019-10-05] MEDS: ASPIRIN 325 MG TAB PO SCH (09:19)
[2019-10-05] MEDS: CITALOPRAM HYDROBROMIDE 20 MG TAB PO SCH (09:19)
[2019-10-05] MEDS: METOPROLOL TARTRATE 25 MG TAB PO SCH ×2 (09:19→20:25)
[2019-10-05] MEDS: ATORVASTATIN 40 MG TAB PO SCH (09:19)
[2019-10-05] MEDS: CLOPIDOGREL 75 MG TAB PO SCH (09:19)
[2019-10-05] MEDS: HEPARIN SODIUM,PORCINE 5,000 UNIT/ML 1 ML VIAL SQ SCH ×2 (09:20→16:25)
[2019-10-05] MEDS: ACETAMINOPHEN TAB 500 MG TAB PO PRN (09:42)
--- NOTE | 2019-10-05 10:02 | P.PN ---
Subjective Progress Note Date: 10/05/19 Principal diagnosis: Single vessel coronary artery disease, severe functional mitral valve regurgitation with mild tricuspid valve regurgitation and heart failure. Past medical history significant for hypertension, coronary artery disease with previous stent placement to her proximal left anterior descending coronary artery in 2017, hyperlipidemia, insulin-dependent diabetes mellitus poorly controlled with a preoperative hemoglobin A1c of 10.7%, morbid obesity, stage III chronic kidney disease with a baseline creatinine of 1.5, obstructive sleep apnea, pulmonary hypertension and preoperative urinary tract infection of Klebsiella pneumoniae which was treated. POD #2 single coronary artery bypass grafting using the left internal mammary artery to left anterior descending coronary artery, mitral valve repair using a reduction annuloplasty with a 28 mm physio-II ring, exclusion of the left atrial appendage using a 45 mm Atriclip, intraoperative graft flow measurements using the [employer] sytem, intraoperative epi-aortic scanning and transesophageal echocardiogram. Postoperative acute blood loss anemia, an expected outcome secondary to cardiopulmonary bypass and hemodilution. The patient was seen today 10/05/2019 at her bedside in the intensive care unit. She is currently sitting up to the bedside chair, is awake, alert and oriented [address]. The patient is disoriented to time, states the month is November in the year is 2005. Currently, she denies any complaints of shortness of breath although is complaining of some surgical type pain to her chest tube insertion sites and with taking a deep breath. She is in no acute distress, remains hemodynamically stable and is currently on no inotropic or pressor support. Her right IJ Cordis with Pickens-Josr catheter remains in place with hemodynamics showing a cardiac output of 4.6, cardiac index 2.6, PA pressures 47/23 and a CVP of 14 mmHg. The left radial arterial line was accidentally removed by the patient this morning and she currently has a small hematoma to her left wrist and a pressure dressing in place. Oxygen saturations are 96% on 4 L nasal cannula and she is achieving 500 mL on her incentive spirometry with much encouragement. Mediastinal, left and right pleural chest tubes remain in place to low continuous wall suction -20 cm H2O. No air leak is present. Draining thin serosanguineous drainage with 30 mL output in the last 8 hours and 150 mL output the last 24 hours from her mediastinal chest tubes, 40 mL output in the last 8 hours and 140 mL output in the last 24 hours from her left pleural chest tube and 10 mL output in the last 8 hours and 100 mL output in the last 24 hours from her right pleural chest tube. Her T-max temperature in the last 24 hours was 99.7F. She was moving all 4 extremities appropriately with verbal stimuli and does have some postoperative generalized weakness with ambulation. The patient had complaints of nausea with 2 episodes of emesis yesterday, currently denies any complaints of nausea and no further reports of emesis. Objective - Vital Signs Vital signs: Vital Signs Temp 99.7 F H 10/05/19 04:00 Pulse 87 10/05/19 07:53 Resp 15 10/05/19 07:00 BP 96/71 10/05/19 07:00 Pulse Ox 97 10/05/19 07:00 Intake & Output 10/04/19 10/05/19 10/05/19 18:59 06:59 18:59 Intake Total 334.619 465.156 33.983 Output Total 450 1175 40 Balance -115.381 -709.844 -6.017 Weight 90.8 kg 87.8 kg Intake: IV 210 189 9 cardiac index 180 90 pressure bags 30 99 9 Intake, IV Titration 124.619 276.156 24.983 Amount Insulin Regular 100 unit 24.619 56.156 4.983 In Sodium Chloride 0.9% 100 ml @ Per Protocol IV .Q0M [facility] Rx#:[id number] Milrinone-D5w Pmx 20 mg 100 In Dextrose/Water 1 100ml .bag @ 0.3 MCG/KG/MIN 7. 416 mls/hr IV .[id number] [facility] Rx#:[id number] Sodium Chloride 0.9% 1, 220 20 000 ml @ 20 mls/hr IV . Q24H [facility] Rx#:[id number] Output: Chest Tube Drainage 130 175 left pleural 40 80 mediastinal x2 30 80 right pleural 60 15 Urine 320 1000 40 Other: Voiding Method Indwelling Catheter Indwelling Catheter ABP, PAP, CO, CI - Last Documented Arterial Blood Pressure 130/42 Pulmonary Artery Pressure 43/24 Cardiac Output 4.6 Cardiac Index 2.6 - Exam This is a pleasant 68-year-old female patient who is sitting up to the bedside chair in the intensive care unit. She is in no apparent acute distress, she is awake, alert and oriented [address] She is moving all 4 extremities appropriately with verbal stimuli. Oxygen saturation are 96 % on 4 L nasal cannula. - Constitutional General appearance: Present: cooperative, morbidly obese, no acute distress - EENT Eyes: Absent: scleral icterus ENT: Present: hearing grossly normal - Neck Details: Neck is supple, no JVD, no lymphadenopathy. - Respiratory Details: Lung sounds are essentially clear to her bilateral upper lobes, diminished to her bilateral bases with few scattered fine crackles. No wheezes or rhonchi. Respirations are symmetrical and nonlabored. Oxygen saturation are 96% on 4 L nasal cannula. Achieving 500 mL on her incentive spirometry with much encouragement. Mediastinal, left and right pleural chest tubes remain in place to low continuous wall suction -20 cm H2O. No air leak is present. Draining thin serosanguineous drainage with 30 mL output in the last 8 hours and 150 mL output the last 24 hours from her mediastinal chest tubes, 40 mL output in the last 8 hours and 140 mL output in the last 24 hours from her left pleural chest tube and 10 mL output in the last 8 hours and 100 mL output in the last 24 hours from her right pleural chest tube. - Cardiovascular Details: Regular rhythm and rate. S1 and S2 present, negative for S3 or gallop. Systolic murmur 2/6 present heard best to her left sternal border. Sternum is stable. Bedside telemetry showing normal sinus rhythm with bundle branch block and first-degree heart block with a heart rate of 87 BPM. Atrial and ventricular epicardial pacemaker wires in place and connected to back up to bedside pacemaker generator on a VVI 50. No edema present. Right IJ Pickens-Josr catheter with in place with current hemodynamic showing a cardiac output of 4.6, cardiac index 2.6, PA pressures 47/23 and a CVP of 14 mmHg. Heart hugger is in place and she is demonstrating appropriate use with encouragement. Knee-high KARTHIKEYAN hose and sequential compression devices in place to bilateral lower extremities. - Gastrointestinal Gastrointestinal Comment(s): Abdomen soft, nontender and nondistended. Active bowel sounds present in all 4 abdominal quadrants. No guarding or rigidity. No organomegaly appreciated. Tolerating oral intake. - Genitourinary Genitourinary Comment(s): Hinkle catheter for accurate I&O. Draining clear yellow urine. 700 mL output in the last 8 hours. - Neurologic Neurologic: Present: CNII-XII intact - Musculoskeletal Musculoskeletal: Present: gait normal, generalized weakness, strength equal bilaterally - Psychiatric Psychiatric Comment(s): Patient is awake, alert and oriented [address]. Episodes of confusion to time. Psychiatric: Present: appropriate affect - Allied health notes Allied health notes reviewed: nursing - Labs CBC & Chem 7: 10/05/19 03:55 10/05/19 03:55 Labs: Abnormal Lab Results - Last 24 Hours (Table) 10/04/19 10/04/19 10/04/19 Range/Units 12:18 13:22 14:23 WBC (3.8-10.6) k/uL RBC (3.80-5.40) m/uL Hgb (11.4-16.0) gm/dL Hct (34.0-46.0) % RDW (11.5-15.5) % Plt Count (150-450) k/uL Neutrophils # (1.3-7.7) k/uL Chloride (98-107) mmol/L BUN (7-17) mg/dL Creatinine (0.52-1.04) mg/dL Glucose (74-99) mg/dL POC Glucose (mg/dL) 114 H 141 H 144 H (75-99) mg/dL AST (14-36) U/L Total Protein (6.3-8.2) g/dL Albumin (3.5-5.0) g/dL 10/04/19 10/04/19 10/04/19 Range/Units 17:02 21:02 22:03 WBC (3.8-10.6) k/uL RBC (3.80-5.40) m/uL Hgb (11.4-16.0) gm/dL Hct (34.0-46.0) % RDW (11.5-15.5) % Plt Count (150-450) k/uL Neutrophils # (1.3-7.7) k/uL Chloride (98-107) mmol/L BUN (7-17) mg/dL Creatinine (0.52-1.04) mg/dL Glucose (74-99) mg/dL POC Glucose (mg/dL) 134 H 114 H 131 H (75-99) mg/dL AST (14-36) U/L Total Protein (6.3-8.2) g/dL Albumin (3.5-5.0) g/dL 10/04/19 10/04/19 10/05/19 Range/Units 22:56 23:49 01:49 WBC (3.8-10.6) k/uL RBC (3.80-5.40) m/uL Hgb (11.4-16.0) gm/dL Hct (34.0-46.0) % RDW (11.5-15.5) % Plt Count (150-450) k/uL Neutrophils # (1.3-7.7) k/uL Chloride (98-107) mmol/L BUN (7-17) mg/dL Creatinine (0.52-1.04) mg/dL Glucose (74-99) mg/dL POC Glucose (mg/dL) 140 H 127 H 128 H (75-99) mg/dL AST (14-36) U/L Total Protein (6.3-8.2) g/dL Albumin (3.5-5.0) g/dL 10/05/19 10/05/19 10/05/19 Range/Units 03:55 03:55 03:56 WBC 12.5 H (3.8-10.6) k/uL RBC 2.64 L (3.80-5.40) m/uL Hgb 7.4 L (11.4-16.0) gm/dL Hct 23.1 L (34.0-46.0) % RDW 17.9 H (11.5-15.5) % Plt Count 144 L (150-450) k/uL Neutrophils # 10.3 H (1.3-7.7) k/uL Chloride 111 H (98-107) mmol/L BUN 50 H (7-17) mg/dL Creatinine 1.86 H (0.52-1.04) mg/dL Glucose 101 H (74-99) mg/dL POC Glucose (mg/dL) 110 H (75-99) mg/dL AST 52 H (14-36) U/L Total Protein 5.5 L (6.3-8.2) g/dL Albumin 3.1 L (3.5-5.0) g/dL 10/05/19 10/05/19 10/05/19 Range/Units 04:56 06:02 06:49 WBC (3.8-10.6) k/uL RBC (3.80-5.40) m/uL Hgb (11.4-16.0) gm/dL Hct (34.0-46.0) % RDW (11.5-15.5) % Plt Count (150-450) k/uL Neutrophils # (1.3-7.7) k/uL Chloride (98-107) mmol/L BUN (7-17) mg/dL Creatinine (0.52-1.04) mg/dL Glucose (74-99) mg/dL POC Glucose (mg/dL) 129 H 147 H 147 H (75-99) mg/dL AST (14-36) U/L Total Protein (6.3-8.2) g/dL Albumin (3.5-5.0) g/dL 10/05/19 10/05/19 Range/Units 08:09 09:17 WBC (3.8-10.6) k/uL RBC (3.80-5.40) m/uL Hgb (11.4-16.0) gm/dL Hct (34.0-46.0) % RDW (11.5-15.5) % Plt Count (150-450) k/uL Neutrophils # (1.3-7.7) k/uL Chloride (98-107) mmol/L BUN (7-17) mg/dL Creatinine (0.52-1.04) mg/dL Glucose (74-99) mg/dL POC Glucose (mg/dL) 141 H 148 H (75-99) mg/dL AST (14-36) U/L Total Protein (6.3-8.2) g/dL Albumin (3.5-5.0) g/dL Microbiology - Last 24 Hours (Table) 10/03/19 08:22 Urine Culture - Final Urine,Voided - Imaging and Cardiology Chest x-ray: report reviewed, image reviewed Assessment and Plan Assessment: 1. Single-vessel coronary artery disease, status post single vessel coronary artery bypass grafting REYES to the left anterior descending coronary artery 2. Severe functional mitral valve regurgitation, status post mitral valve repair using a reduction annuloplasty with a 28 mm physio-II ring 3. Mild tricuspid valve regurgitation 4. Acute on chronic systolic heart failure, with a preoperative ejection fraction of 35-40% 5. History of coronary artery disease with previous stent placement to her left anterior descending coronary artery in 2017 6. Hypertension 7. Dyslipidemia 8. Poorly controlled insulin-dependent diabetes mellitus with a preoperative h emoglobin A1c of 10.7% 8. Ischemic cardiomyopathy 9. Pulmonary hypertension, likely related to valvular disease 10. Stage III chronic kidney disease with a baseline creatinine of 1.5 11. Obstructive sleep apnea 12. Preoperative urinary tract infection of Klebsiella pneumoniae, treated 13. Morbid obesity 14. Postoperative acute blood loss anemia Plan: 1. Continue aspirin, statin, Plavix, and beta anaid. We will increase beta anaid as tolerated. 2. Wean O2 as tolerated. Encourage incentive spirometry 10 times every hour while awake. 3. Bronchodilators per pulmonology management. 4. Increase activity, out of bed for all meals. PT/OT/cardiac rehab following. 5. Will monitor daily labs and chest x-rays. Electrolyte replacement per protocol. 6. Pain controlled current medication regimen. Due to the patient's confusion hold opioids. 7. Insulin management per primary care service. 8. Discontinue right IJ Pickens-Josr catheter, keep right IJ Cordis in place to continue CVP monitoring. 9. Remove mediastinal, left pleural and right pleural chest tubes. 10. Remove Hinkle catheter. May bladder scan to 6 hours and when necessary, straight catheter for greater than 300 mL of urine. 11. Ground atrial and ventricular epicardial pacemaker wires. 12. Lasix 20 mg IV 1 now. 13. Mediastinal, left pleural and right pleural chest tubes removed without incident. 4 x 4 dressing to cover, Vaseline impregnated gauze to cover and secured with tape. 14. More recommendations to follow based on patient's clinical course. Time with Patient: Greater than 30
[2019-10-05 10:07] LABS: Glucose,Whole Blood 152 mg/dL (75-99)
[2019-10-05 11:03] LABS: Glucose,Whole Blood 148 mg/dL (75-99)
--- NOTE | 2019-10-05 11:59 | P.PN ---
Subjective This is a pleasant 68 years old female with past medical history of coronary artery disease, heart failure status post stent placement, diabetes mellitus, GERD, hypertension, hyperlipidemia, sleep apnea on CPAP/BiPAP, hypothyroidism. She is a status post 1 vessel bypass surgery and today postop day #1. She also got extubated today and currently she is on nasal cannula at 4 L/m was saturating 95-98%, patient denies chest pain or dyspnea except as surgical site which is expected. Rest of Vitas looks stable. Labs reviewed showed mild leukocytosis of 12 K, INR is normal, sugar controlled, creatinine 1.9 (baseline 1.4-2.0) Chest x-ray: Improved radiation Patient is currently on aspirin, metoprolol, oral levothyroxine, Protonix 10/05/2019 Patient remains in the ICU with no chest pain or dyspnea. However today her blood pressure dropped with physical therapy session went down to 80/40, patient brought back on lying position in the chair, she was fully awake and oriented however she looked pale with no chest pain or dyspnea. Recheck blood pressure show improvement, please see records. Progressive vitals are stable. Sugar controlled 141-152 today her chest tube and swelling Came out Objective - Vital Signs Vital signs: Vital Signs Temp 98.5 F 10/05/19 08:00 Pulse 75 10/05/19 11:00 Resp 18 10/05/19 11:00 BP 126/61 10/05/19 11:00 Pulse Ox 97 10/05/19 11:00 Intake & Output 10/04/19 10/05/19 10/05/19 18:59 06:59 18:59 Intake Total 334.619 465.156 131.983 Output Total 450 1175 810 Balance -115.381 -709.844 -678.017 Weight 90.8 kg 87.8 kg Intake: IV 210 189 107 0.9 80 cardiac index 180 90 pressure bags 30 99 27 Intake, IV Titration 124.619 276.156 24.983 Amount Insulin Regular 100 unit 24.619 56.156 4.983 In Sodium Chloride 0.9% 100 ml @ Per Protocol IV .Q0M [facility] Rx#:[id number] Milrinone-D5w Pmx 20 mg 100 In Dextrose/Water 1 100ml .bag @ 0.3 MCG/KG/MIN 7. 416 mls/hr IV .[id number] [facility] Rx#:[id number] Sodium Chloride 0.9% 1, 220 20 000 ml @ 20 mls/hr IV . Q24H [facility] Rx#:[id number] Output: Chest Tube Drainage 130 175 90 left pleural 40 80 60 mediastinal x2 30 80 10 right pleural 60 15 20 Urine 320 1000 720 Other: Voiding Method Indwelling Catheter Indwelling Catheter Indwelling Catheter ABP, PAP, CO, CI - Last Documented Arterial Blood Pressure 130/42 Pulmonary Artery Pressure 46/22 Cardiac Output 4.6 Cardiac Index 2.6 - Exam GENERAL: The patient is alert and oriented x3, not in any acute distress. Well developed, well nourished. HEENT: Pupils are round and equally reacting to light. EOMI. No scleral icterus. No conjunctival pallor. Normocephalic, atraumatic. No pharyngeal erythema. No thyromegaly. -CARDIOVASCULAR: S1 and S2 present. No murmurs, rubs, or gallops. Sternal wound is in a dressing PULMONARY: Chest is clear to auscultation, no wheezing or crackles. ABDOMEN: Soft, nontender, nondistended, normoactive bowel sounds. No palpable organomegaly. MUSCULOSKELETAL: No joint swelling or deformity. EXTREMITIES: No cyanosis, clubbing, or pedal edema. NEUROLOGICAL: Gross neurological examination did not reveal any focal deficits. SKIN: No rashes. No petechiae - Labs CBC & Chem 7: 10/05/19 03:55 10/05/19 03:55 Labs: Abnormal Lab Results - Last 24 Hours (Table) 10/04/19 10/04/19 10/04/19 Range/Units 12:18 13:22 14:23 WBC (3.8-10.6) k/uL RBC (3.80-5.40) m/uL Hgb (11.4-16.0) gm/dL Hct (34.0-46.0) % RDW (11.5-15.5) % Plt Count (150-450) k/uL Neutrophils # (1.3-7.7) k/uL Chloride (98-107) mmol/L BUN (7-17) mg/dL Creatinine (0.52-1.04) mg/dL Glucose (74-99) mg/dL POC Glucose (mg/dL) 114 H 141 H 144 H (75-99) mg/dL AST (14-36) U/L Total Protein (6.3-8.2) g/dL Albumin (3.5-5.0) g/dL 10/04/19 10/04/19 10/04/19 Range/Units 17:02 21:02 22:03 WBC (3.8-10.6) k/uL RBC (3.80-5.40) m/uL Hgb (11.4-16.0) gm/dL Hct (34.0-46.0) % RDW (11.5-15.5) % Plt Count (150-450) k/uL Neutrophils # (1.3-7.7) k/uL Chloride (98-107) mmol/L BUN (7-17) mg/dL Creatinine (0.52-1.04) mg/dL Glucose (74-99) mg/dL POC Glucose (mg/dL) 134 H 114 H 131 H (75-99) mg/dL AST (14-36) U/L Total Protein (6.3-8.2) g/dL Albumin (3.5-5.0) g/dL 10/04/19 10/04/19 10/05/19 Range/Units 22:56 23:49 01:49 WBC (3.8-10.6) k/uL RBC (3.80-5.40) m/uL Hgb (11.4-16.0) gm/dL Hct (34.0-46.0) % RDW (11.5-15.5) % Plt Count (150-450) k/uL Neutrophils # (1.3-7.7) k/uL Chloride (98-107) mmol/L BUN (7-17) mg/dL Creatinine (0.52-1.04) mg/dL Glucose (74-99) mg/dL POC Glucose (mg/dL) 140 H 127 H 128 H (75-99) mg/dL AST (14-36) U/L Total Protein (6.3-8.2) g/dL Albumin (3.5-5.0) g/dL 10/05/19 10/05/19 10/05/19 Range/Units 03:55 03:55 03:56 WBC 12.5 H (3.8-10.6) k/uL RBC 2.64 L (3.80-5.40) m/uL Hgb 7.4 L (11.4-16.0) gm/dL Hct 23.1 L (34.0-46.0) % RDW 17.9 H (11.5-15.5) % Plt Count 144 L (150-450) k/uL Neutrophils # 10.3 H (1.3-7.7) k/uL Chloride 111 H (98-107) mmol/L BUN 50 H (7-17) mg/dL Creatinine 1.86 H (0.52-1.04) mg/dL Glucose 101 H (74-99) mg/dL POC Glucose (mg/dL) 110 H (75-99) mg/dL AST 52 H (14-36) U/L Total Protein 5.5 L (6.3-8.2) g/dL Albumin 3.1 L (3.5-5.0) g/dL 10/05/19 10/05/19 10/05/19 Range/Units 04:56 06:02 06:49 WBC (3.8-10.6) k/uL RBC (3.80-5.40) m/uL Hgb (11.4-16.0) gm/dL Hct (34.0-46.0) % RDW (11.5-15.5) % Plt Count (150-450) k/uL Neutrophils # (1.3-7.7) k/uL Chloride (98-107) mmol/L BUN (7-17) mg/dL Creatinine (0.52-1.04) mg/dL Glucose (74-99) mg/dL POC Glucose (mg/dL) 129 H 147 H 147 H (75-99) mg/dL AST (14-36) U/L Total Protein (6.3-8.2) g/dL Albumin (3.5-5.0) g/dL 10/05/19 10/05/19 10/05/19 Range/Units 08:09 09:17 10:06 WBC (3.8-10.6) k/uL RBC (3.80-5.40) m/uL Hgb (11.4-16.0) gm/dL Hct (34.0-46.0) % RDW (11.5-15.5) % Plt Count (150-450) k/uL Neutrophils # (1.3-7.7) k/uL Chloride (98-107) mmol/L BUN (7-17) mg/dL Creatinine (0.52-1.04) mg/dL Glucose (74-99) mg/dL POC Glucose (mg/dL) 141 H 148 H 152 H (75-99) mg/dL AST (14-36) U/L Total Protein (6.3-8.2) g/dL Albumin (3.5-5.0) g/dL 10/05/19 Range/Units 11:01 WBC (3.8-10.6) k/uL RBC (3.80-5.40) m/uL Hgb (11.4-16.0) gm/dL Hct (34.0-46.0) % RDW (11.5-15.5) % Plt Count (150-450) k/uL Neutrophils # (1.3-7.7) k/uL Chloride (98-107) mmol/L BUN (7-17) mg/dL Creatinine (0.52-1.04) mg/dL Glucose (74-99) mg/dL POC Glucose (mg/dL) 148 H (75-99) mg/dL AST (14-36) U/L Total Protein (6.3-8.2) g/dL Albumin (3.5-5.0) g/dL Microbiology - Last 24 Hours (Table) 10/03/19 08:22 Urine Culture - Final Urine,Voided Assessment and Plan Assessment: coronary artery disease, status post 1 vessel bypass surgery Hypertension Diabetes mellitus Hyperlipidemia chronic kidney disease, stage III History of coronary artery disease, status post stent placement GERD Current systolic cardiac failure, EF 35-40% Severe mitral regurgitation, severe tricuspid regurgitation Severe pulmonary hypertension Hypothyroidism Sleep apnea on CPAP/BiPAP chronic Plan: This is a pleasant 68 years old female who was admitted for cardiac bypass surgery, continue with aspirin, metoprolol and levothyroxine. Coronary Labs and medication were reviewed.. Continue same treatment. Continue with symptomatic treatment. Resume home medication. Monitor lytes and vitals. DVT and GI prophylaxis. Further recommendations of the clinical course of the patient DVT prophylaxis: Subcutaneous heparin GI Prophylaxis: Ppi Prognosis is guarded Thank you for consulting us
[2019-10-05 12:04] LABS: Glucose,Whole Blood 145 mg/dL (75-99)
--- NOTE | 2019-10-05 12:12 | P.PN ---
Subjective Progress Note Date: 10/05/19 Principal diagnosis: Status post CABG, MVR. 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 Patient was hospitalized last November 2018 when she presented with complaints of severe, constant, sharp chest pain with left arm radiation. Patient had echocardiogram that showed a moderately impaired LV function with EF of 35-40%, mild aortic regurgitation, mild mitral annular calcification and moderate to severe mitral regurgitation. There was evidence of severe pulmonary hypertension and moderate tricuspid regurg. Patient went on to have cardiac catheterization that showed LAD stenosis of 70% in the proximal portion. YULIANA showed EF of 35-40%, severe mitral regurgitation, with a dilated annulus and poor coaptation of the mitral leaflets and moderate to severe tricuspid regurgitation. She was referred to CT surgery for surgical evaluation, and it took her several months to obtain dental clearance, and optimize her diabetes. Today on 10/03/2019 patient had a one-vessel bypass with REYES to LAD, and mitral valve repair, his occlusion of the left atrial appendage. She is seen in the po stoperative period in the intensive care unit, she is intubated, sedated on mechanical ventilator, current vent settings assist control mode with a rate of 16, tidal vital 350, FiO2 50% and PEEP of 8. Current drips include 0.9 normal saline at a rate of 50, Primacor at 0.3 mics per kilo per minute, levo fed at 0.04 mics per kilo per minute, insulin drip, and Diprivan at 20 mics per kilo per minute. PA pressure is 48/27, CVP 13, cardiac output and index are 4.6 and 2.6 respectively, AV wires in place, patient is on VVI Mode and is currently pacing at 100%. 2 mediastinal chest tubes with 130 mL of sanguinous output, left pleural and right pleural with 120 and 50 ML of sanguinous output resp ectively. Postop blood work shows a white blood cell count of 12.3, hemoglobin of 8.7, sodium is 136, the rest of electrolytes are within normal limits, BUN 62 and creatinine is 1.74. Patient was reevaluated today on 10/04/19, patient was extubated around 4 AM this morning. He tolerated the extubation quite well. Presently on IV fluid at 50 mL per hour. Patient has intermittent episodes of confusion. Remains on Primacor at 0. one 5 mcg/kg/m. Patient is paced with VVI pacemaker at 50 bpm. Her cardiac index is 2.8, cardiac output is 5 CVP is 10. Chest x-ray showed minimal atelectasis at the bases. Patient had REYES to LAD, mitral valve repair and she again she is postoperative day #1. Patient is on 6 L high flow nasal cannula. O2 saturations 98%. Achieving 500 mL on her incentive spirometer. She has noted some surgical type of pain at the side of her chest tube insertion, and mostly when taking a deep breath. Denies shortness of breath. Mediastinal right and left pleural chest tubes remain in place. On continuous wall suction. No air leak. Draining thin serosanguineous drainage with the 130 mL output in the last 8 hours and 300 mL output since surgery from the media stinal chest tubes. Patient was reevaluated today on 10/05/19, patient remains sitting in bed, doing well, no specific complaints. She is oriented 2 mostly to person and place. Not oriented to time. Denies any complaints, she has some vague chest pain upon taking a deep breath. She is hemodynamically stable, not requiring any pressors. Her cardiac index is 2.6, cardiac output is 4.6. CVP is 14. Chest x-ray showed minimal atelectasis at the bases especially at the left base. Patient remains on 4 L nasal cannula, and O2 saturations 96%. She is achieving about 500 MLS her incentive spirometer. Her mediastinal left and right pleural chest tubes remained in place, no air leak noted. Drainage was noted, amount is becoming less and less over the last 2 days. She had a T-max of 99.7. Otherwise the patient is doing great. She does seem to be globally weak Objective - Vital Signs Vital signs: Vital Signs Temp 98.5 F 10/05/19 08:00 Pulse 71 10/05/19 11:58 Resp 18 10/05/19 11:00 BP 126/61 10/05/19 11:00 Pulse Ox 97 10/05/19 11:00 Intake & Output 10/04/19 10/05/19 10/05/19 18:59 06:59 18:59 Intake Total 334.619 465.156 131.983 Output Total 450 1175 810 Balance -115.381 -709.844 -678.017 Weight 90.8 kg 87.8 kg Intake: IV 210 189 107 0.9 80 cardiac index 180 90 pressure bags 30 99 27 Intake, IV Titration 124.619 276.156 24.983 Amount Insulin Regular 100 unit 24.619 56.156 4.983 In Sodium Chloride 0.9% 100 ml @ Per Protocol IV .Q0M [facility] Rx#:[id number] Milrinone-D5w Pmx 20 mg 100 In Dextrose/Water 1 100ml .bag @ 0.3 MCG/KG/MIN 7. 416 mls/hr IV .[id number] [facility]EL[facility] Rx#:[id number] Sodium Chloride 0.9% 1, 220 20 000 ml @ 20 mls/hr IV . Q24H [facility]IA Rx#:[id number] Output: Chest Tube Drainage 130 175 90 left pleural 40 80 60 mediastinal x2 30 80 10 right pleural 60 15 20 Urine 320 1000 720 Other: Voiding Method Indwelling Catheter Indwelling Catheter Indwelling Catheter ABP, PAP, CO, CI - Last Documented Arterial Blood Pressure 130/42 Pulmonary Artery Pressure 46/22 Cardiac Output 4.6 Cardiac Index 2.6 - Exam GENERAL EXAM: Revealed 68-year-old female in no distress. On 4 L nasal cannula. O2 saturation is 96% Head: Atraumatic, normocephalic. HEENT: PERRLA, EOMI, no icterus, no neck masses, no JVD. CHEST: No chest wall deformity. Diminished breath sounds at the bases no crackles or rhonchi and wheezes. Chest tubes and mediastinal tubes noted. CVS: Regular rate and rhythm, normal S1 and S2, no gallops, no murmurs, no rubs ABDOMEN: Soft, nontender. No hepatosplenomegaly, normal bowel sounds, no guarding or rigidity. EXTREMITIES: No clubbing, no edema, no cyanosis, 2+ pulses and upper and lower extremities. MUSCULOSKELETAL: Muscle strength and tone normal. SPINE: No scoliosis or deformity SKIN: No rashes CENTRAL NERVOUS SYSTEM: Alert and oriented 2, not oriented to time. - Labs CBC & Chem 7: 10/05/19 03:55 10/05/19 03:55 Labs: Abnormal Lab Results - Last 24 Hours (Table) 10/04/19 10/04/19 10/04/19 Range/Units 12:18 13:22 14:23 WBC (3.8-10.6) k/uL RBC (3.80-5.40) m/uL Hgb (11.4-16.0) gm/dL Hct (34.0-46.0) % RDW (11.5-15.5) % Plt Count (150-450) k/uL Neutrophils # (1.3-7.7) k/uL Chloride (98-107) mmol/L BUN (7-17) mg/dL Creatinine (0.52-1.04) mg/dL Glucose (74-99) mg/dL POC Glucose (mg/dL) 114 H 141 H 144 H (75-99) mg/dL AST (14-36) U/L Total Protein (6.3-8.2) g/dL Albumin (3.5-5.0) g/dL 10/04/19 10/04/19 10/04/19 Range/Units 17:02 21:02 22:03 WBC (3.8-10.6) k/uL RBC (3.80-5.40) m/uL Hgb (11.4-16.0) gm/dL Hct (34.0-46.0) % RDW (11.5-15.5) % Plt Count (150-450) k/uL Neutrophils # (1.3-7.7) k/uL Chloride (98-107) mmol/L BUN (7-17) mg/dL Creatinine (0.52-1.04) mg/dL Glucose (74-99) mg/dL POC Glucose (mg/dL) 134 H 114 H 131 H (75-99) mg/dL AST (14-36) U/L Total Protein (6.3-8.2) g/dL Albumin (3.5-5.0) g/dL 10/04/19 10/04/19 10/05/19 Range/Units 22:56 23:49 01:49 WBC (3.8-10.6) k/uL RBC (3.80-5.40) m/uL Hgb (11.4-16.0) gm/dL Hct (34.0-46.0) % RDW (11.5-15.5) % Plt Count (150-450) k/uL Neutrophils # (1.3-7.7) k/uL Chloride (98-107) mmol/L BUN (7-17) mg/dL Creatinine (0.52-1.04) mg/dL Glucose (74-99) mg/dL POC Glucose (mg/dL) 140 H 127 H 128 H (75-99) mg/dL AST (14-36) U/L Total Protein (6.3-8.2) g/dL Albumin (3.5-5.0) g/dL 10/05/19 10/05/19 10/05/19 Range/Units 03:55 03:55 03:56 WBC 12.5 H (3.8-10.6) k/uL RBC 2.64 L (3.80-5.40) m/uL Hgb 7.4 L (11.4-16.0) gm/dL Hct 23.1 L (34.0-46.0) % RDW 17.9 H (11.5-15.5) % Plt Count 144 L (150-450) k/uL Neutrophils # 10.3 H (1.3-7.7) k/uL Chloride 111 H (98-107) mmol/L BUN 50 H (7-17) mg/dL Creatinine 1.86 H (0.52-1.04) mg/dL Glucose 101 H (74-99) mg/dL POC Glucose (mg/dL) 110 H (75-99) mg/dL AST 52 H (14-36) U/L Total Protein 5.5 L (6.3-8.2) g/dL Albumin 3.1 L (3.5-5.0) g/dL 10/05/19 10/05/19 10/05/19 Range/Units 04:56 06:02 06:49 WBC (3.8-10.6) k/uL RBC (3.80-5.40) m/uL Hgb (11.4-16.0) gm/dL Hct (34.0-46.0) % RDW (11.5-15.5) % Plt Count (150-450) k/uL Neutrophils # (1.3-7.7) k/uL Chloride (98-107) mmol/L BUN (7-17) mg/dL Creatinine (0.52-1.04) mg/dL Glucose (74-99) mg/dL POC Glucose (mg/dL) 129 H 147 H 147 H (75-99) mg/dL AST (14-36) U/L Total Protein (6.3-8.2) g/dL Albumin (3.5-5.0) g/dL 10/05/19 10/05/19 10/05/19 Range/Units 08:09 09:17 10:06 WBC (3.8-10.6) k/uL RBC (3.80-5.40) m/uL Hgb (11.4-16.0) gm/dL Hct (34.0-46.0) % RDW (11.5-15.5) % Plt Count (150-450) k/uL Neutrophils # (1.3-7.7) k/uL Chloride (98-107) mmol/L BUN (7-17) mg/dL Creatinine (0.52-1.04) mg/dL Glucose (74-99) mg/dL POC Glucose (mg/dL) 141 H 148 H 152 H (75-99) mg/dL AST (14-36) U/L Total Protein (6.3-8.2) g/dL Albumin (3.5-5.0) g/dL 10/05/19 10/05/19 Range/Units 11:01 12:03 WBC (3.8-10.6) k/uL RBC (3.80-5.40) m/uL Hgb (11.4-16.0) gm/dL Hct (34.0-46.0) % RDW (11.5-15.5) % Plt Count (150-450) k/uL Neutrophils # (1.3-7.7) k/uL Chloride (98-107) mmol/L BUN (7-17) mg/dL Creatinine (0.52-1.04) mg/dL Glucose (74-99) mg/dL POC Glucose (mg/dL) 148 H 145 H (75-99) mg/dL AST (14-36) U/L Total Protein (6.3-8.2) g/dL Albumin (3.5-5.0) g/dL Microbiology - Last 24 Hours (Table) 10/03/19 08:22 Urine Culture - Final Urine,Voided Assessment and Plan Assessment: Impression: Status post 1 vessel bypass, REYES to LAD and mitral valve repair postoperative day #2 Acute blood loss anemia, outcome of bypass surgery, this is expected. History of chronic kidney disease. History of diabetes, poorly controlled, patient is on insulin drip. Benign essential hypertension. Postoperative atelectasis, expected after surgery Previous stenting of LAD. Ischemic cardiomyopathy and LV dysfunction with ejection fraction of 35%. Pulmonary hypertension related to valvular heart disease. Recommendation: Continue incentive spirometry. Continue beta blockers Plavix and statins. Continue to wean oxygen as tolerated. Continue bronchodilators. Early ambulation. Chest tubes will likely be removed today. Continue insulin for diabetes management. Continue pain control management. Increase activity as tolerated We will continue to follow. Time with Patient: Less than 30
[2019-10-05 13:26] LABS: Glucose,Whole Blood 123 mg/dL (75-99)
[2019-10-05] MEDS: allopurinoL 300 MG TAB PO SCH (13:28)
--- NOTE | 2019-10-05 14:43 | PN ---
PROGRESS NOTE Cony is a 68-year-old lady with history of coronary artery disease and mitral regurgitation who underwent single-vessel bypass with REYES to LAD and mitral valve repair. She was confused yesterday. This morning she complains of pain but is less confused. She is on Lipitor, aspirin, Plavix. On exam, comfortable at rest. Vital signs are stable. Chest exam reveals good air entry bilaterally. Heart exam reveals first and second heart sounds. No gallop. No murmur. No rub. Abdomen is soft, nontender. Exam of extremities did not reveal any edema. Peripheral pulses are palpable. Labs show that hemoglobin is 7.4, potassium is 4.3. ASSESSMENT: 1. Coronary artery disease status post CABG. 2. Mitral regurgitation status post mitral valve repair. 3. Confusion. PLAN: Patient is doing much better compared to yesterday. We will continue with current medications. MMODL / IJN: [id number] /
[2019-10-05 16:24] LABS: Glucose,Whole Blood 121 mg/dL (75-99)
[2019-10-05] MEDS: SODIUM CHLORIDE 0.9% 1,000 ML IV SCH (16:25)
[2019-10-05 17:16] LABS: Glucose,Whole Blood 129 mg/dL (75-99)
[2019-10-05 18:16] LABS: Glucose,Whole Blood 127 mg/dL (75-99)
[2019-10-05 19:13] LABS: Glucose,Whole Blood 156 mg/dL (75-99)
[2019-10-05] MEDS: SENNOSIDES-DOCUSATE SODIUM 1 EACH TAB PO SCH (20:25)
[2019-10-05 21:05] LABS: Glucose,Whole Blood 208 mg/dL (75-99)
[2019-10-05] MEDS: INSULIN REGULAR 100 UNIT in SODIUM CHLORIDE 0.9% 100 ML IV SCH (21:10)
[2019-10-05 22:13] LABS: Glucose,Whole Blood 174 mg/dL (75-99)
[2019-10-05 23:51] LABS: Glucose,Whole Blood 130 mg/dL (75-99)
[2019-10-06] MEDS: HEPARIN SODIUM,PORCINE 5,000 UNIT/ML 1 ML VIAL SQ SCH ×3 (00:23→15:54)
[2019-10-06 02:18] LABS: Calcium 8.8 mg/dL (8.4-10.2); Potassium 4.2 mmol/L (3.5-5.1)
[2019-10-06 03:44] LABS: Glucose,Whole Blood 104 mg/dL (75-99)
[2019-10-06 04:20] LABS: Anisocytosis Slight; Basophils % (A) 0 %; Eosinophils # (A) 0.3 k/uL (0-0.7); Eosinophils % (A) 3 %; HCT 23.3 % (34.0-46.0); HGB 7.1 gm/dL (11.4-16.0); Hypochromasia Slight; Lymphocytes # (A) 1.5 k/uL (1.0-4.8); Lymphocytes % (A) 13 %; MCH 27.6 pg (25.0-35.0); MCHC 30.7 g/dL (31.0-37.0); Mean Platelet Volume 8.5; Monocytes # (A) 0.5 k/uL (0-1.0); Monocytes % (A) 5 %; Neutrophils # (A) 9.2 k/uL (1.3-7.7); Neutrophils % (A) 79 %; Platelet Count 129 k/uL (150-450); RBC 2.59 m/uL (3.80-5.40); RDW 18.2 % (11.5-15.5); WBC 11.6 k/uL (3.8-10.6)
[2019-10-06 04:32] LABS: Albumin 3.1 g/dL (3.5-5.0); Total Bilirubin 0.6 mg/dL (0.2-1.3); Total Protein 5.6 g/dL (6.3-8.2)
[2019-10-06 04:45] LABS: Glucose,Whole Blood 154 mg/dL (75-99)
[2019-10-06 05:06] LABS: Glucose,Whole Blood 178 mg/dL (75-99)
[2019-10-06 06:20] LABS: Glucose,Whole Blood 176 mg/dL (75-99)
[2019-10-06] MEDS: LEVOTHYROXINE 75 MCG TAB PO SCH (06:42)
[2019-10-06] MEDS: PANTOPRAZOLE 40 MG TABLET PO SCH (06:42)
[2019-10-06] MEDS: FERROUS SULFATE 325 MG TAB PO SCH ×2 (06:42→17:06)
[2019-10-06 07:05] LABS: Glucose,Whole Blood 152 mg/dL (75-99)
[2019-10-06] MEDS: CITALOPRAM HYDROBROMIDE 20 MG TAB PO SCH (07:58)
[2019-10-06] MEDS: CLOPIDOGREL 75 MG TAB PO SCH (07:58)
[2019-10-06] MEDS: ASPIRIN 325 MG TAB PO SCH (07:58)
[2019-10-06] MEDS: ATORVASTATIN 40 MG TAB PO SCH (07:58)
[2019-10-06] MEDS ORDERED: FUROSEMIDE 10 MG/ML 2 ML VIAL IV ONE (09:12)
[2019-10-06] MEDS: IPRATROPIUM-ALBUTEROL 3 ML NEB INHALATION SCH ×4 (09:39→20:57)
[2019-10-06] MEDS: allopurinoL 300 MG TAB PO SCH (10:07)
--- NOTE | 2019-10-06 10:14 | P.PN ---
Subjective Progress Note Date: 10/06/19 Principal diagnosis: Single vessel coronary artery disease, severe functional mitral valve regurgitation with mild tricuspid valve regurgitation and heart failure. Past medical history significant for hypertension, coronary artery disease with previous stent placement to her proximal left anterior descending coronary artery in 2017, hyperlipidemia, insulin-dependent diabetes mellitus poorly controlled with a preoperative hemoglobin A1c of 10.7%, morbid obesity, stage III chronic kidney disease with a baseline creatinine of 1.5, obstructive sleep apnea, pulmonary hypertension and preoperative urinary tract infection of Klebsiella pneumoniae which was treated. POD #3 single coronary artery bypass grafting using the left internal mammary artery to left anterior descending coronary artery, mitral valve repair using a reduction annuloplasty with a 28 mm Physio-II ring, exclusion of the left atrial appendage using a 45 mm Atriclip, intraoperative graft flow measurements using the [employer] sytem, intraoperative epi-aortic scanning and transesophageal echocardiogram. Postoperative acute blood loss anemia, expected outcome secondary to cardiopulmonary bypass and hemodilution. Postoperative paroxysmal controlled atrial fibrillation, unexpected but common occurrence after open heart surgery The patient is currently sitting up in a recliner in the intensive care unit in no acute distress. States pain is controlled with current medication regimen, denies shortness of breath. The patient did have a third-degree heart block at the end of her operation and she was coming out of the OR, currently sinus rhythm with second degree AV block, hemodynamically stable on no inotropes or pressors. She went into controlled atrial fibrillation this morning and was initiated on amiodarone protocol. Less confused, she is oriented to person place and time except that she thinks since November incentive October. She does know that she had open-heart surgery, and she is following commands. 1:1 sitter at the bedside for safety. Objective - Vital Signs Vital signs: Vital Signs Temp 98.1 F 10/06/19 06:00 Pulse 73 10/06/19 07:00 Resp 15 10/06/19 07:00 BP 100/47 10/06/19 07:00 Pulse Ox 96 10/06/19 07:00 Intake & Output 10/05/19 10/06/19 10/06/19 18:59 06:59 18:59 Intake Total 335.219 354.963 Output Total 1135 750 Balance -799.781 -395.037 Weight 88.1 kg Intake: IV 262 299 0.9 220 260 pressure bags 42 39 Intake, IV Titration 73.219 55.963 Amount Insulin Regular 100 unit 53.219 55.963 In Sodium Chloride 0.9% 100 ml @ Per Protocol IV .Q0M [facility] Rx#:[id number] Sodium Chloride 0.9% 1, 20 000 ml @ 20 mls/hr IV . Q24H [facility]IA Rx#:[id number] Output: Chest Tube Drainage 90 left pleural 60 mediastinal x2 10 right pleural 20 Urine 1045 750 Other: Voiding Method Indwelling Catheter Bedside Commode ABP, PAP, CO, CI - Last Documented Arterial Blood Pressure 130/42 Pulmonary Artery Pressure 46/22 Cardiac Output 4.6 Cardiac Index 2.6 - Constitutional General appearance: Present: cooperative, no acute distress, obese - Respiratory Details: Lungs sounds diminished bilaterally with coarse breath sounds in the bases. Respirations even, nonlabored. Currently on 2 L nasal cannula with oxygen saturation 96%. Only able to achieve 500 mL on incentive spirometry. Weak cough. - Cardiovascular Details: S1, S2 present. Regular rate and rhythm, sinus rhythm with second degree AV block on telemetry. Sternum stable. A/V epicardial pacemaker wires present, connected to generator, VVI mode with backup rate 60 bpm. Right internal jugular Cordis present. Palpable peripheral pulses bilaterally. No edema present. No calf pain or tenderness noted. Heart hugger in place with patient demonstrating appropriate use. Antiembolism stockings, SCDs present. - Gastrointestinal Gastrointestinal Comment(s): Abdomen soft, nontender, nondistended. Active bowel sounds present 4 quadrants. Tolerating diet. Positive flatus, negative bowel movement. - Genitourinary Genitourinary Comment(s): Hinkle discontinued yesterday. Patient continues to void. Urine output overnight 600 mL total. Negative fluid balance. - Integumentary Integumentary Comment(s): Skin is warm and dry with evidence of good perfusion. Anterior chest incision well approximated covered with dry intact dressing. - Neurologic Neurologic: Present: CNII-XII intact - Musculoskeletal Musculoskeletal: Present: generalized weakness, strength equal bilaterally - Psychiatric Psychiatric Comment(s): A & O 3 but forgetful, needs reorientation - Allied health notes Allied health notes reviewed: nursing - Labs CBC & Chem 7: 10/06/19 04:00 10/06/19 01:50 Labs: Abnormal Lab Results - Last 24 Hours (Table) 10/05/19 10/05/19 10/05/19 Range/Units 08:09 09:17 10:06 WBC (3.8-10.6) k/uL RBC (3.80-5.40) m/uL Hgb (11.4-16.0) gm/dL Hct (34.0-46.0) % MCHC (31.0-37.0) g/dL RDW (11.5-15.5) % Plt Count (150-450) k/uL Neutrophils # (1.3-7.7) k/uL Chloride (98-107) mmol/L BUN (7-17) mg/dL Creatinine (0.52-1.04) mg/dL POC Glucose (mg/dL) 141 H 148 H 152 H (75-99) mg/dL Magnesium (1.6-2.3) mg/dL Total Protein (6.3-8.2) g/dL Albumin (3.5-5.0) g/dL 10/05/19 10/05/19 10/05/19 Range/Units 11:01 12:03 13:23 WBC (3.8-10.6) k/uL RBC (3.80-5.40) m/uL Hgb (11.4-16.0) gm/dL Hct (34.0-46.0) % MCHC (31.0-37.0) g/dL RDW (11.5-15.5) % Plt Count (150-450) k/uL Neutrophils # (1.3-7.7) k/uL Chloride (98-107) mmol/L BUN (7-17) mg/dL Creatinine (0.52-1.04) mg/dL POC Glucose (mg/dL) 148 H 145 H 123 H (75-99) mg/dL Magnesium (1.6-2.3) mg/dL Total Protein (6.3-8.2) g/dL Albumin (3.5-5.0) g/dL 10/05/19 10/05/19 10/05/19 Range/Units 16:22 17:15 18:14 WBC (3.8-10.6) k/uL RBC (3.80-5.40) m/uL Hgb (11.4-16.0) gm/dL Hct (34.0-46.0) % MCHC (31.0-37.0) g/dL RDW (11.5-15.5) % Plt Count (150-450) k/uL Neutrophils # (1.3-7.7) k/uL Chloride (98-107) mmol/L BUN (7-17) mg/dL Creatinine (0.52-1.04) mg/dL POC Glucose (mg/dL) 121 H 129 H 127 H (75-99) mg/dL Magnesium (1.6-2.3) mg/dL Total Protein (6.3-8.2) g/dL Albumin (3.5-5.0) g/dL 10/05/19 10/05/19 10/05/19 Range/Units 19:11 21:03 22:01 WBC (3.8-10.6) k/uL RBC (3.80-5.40) m/uL Hgb (11.4-16.0) gm/dL Hct (34.0-46.0) % MCHC (31.0-37.0) g/dL RDW (11.5-15.5) % Plt Count (150-450) k/uL Neutrophils # (1.3-7.7) k/uL Chloride (98-107) mmol/L BUN (7-17) mg/dL Creatinine (0.52-1.04) mg/dL POC Glucose (mg/dL) 156 H 208 H 174 H (75-99) mg/dL Magnesium (1.6-2.3) mg/dL Total Protein (6.3-8.2) g/dL Albumin (3.5-5.0) g/dL 10/05/19 10/06/19 10/06/19 Range/Units 23:48 01:50 01:50 WBC (3.8-10.6) k/uL RBC (3.80-5.40) m/uL Hgb (11.4-16.0) gm/dL Hct (34.0-46.0) % MCHC (31.0-37.0) g/dL RDW (11.5-15.5) % Plt Count (150-450) k/uL Neutrophils # (1.3-7.7) k/uL Chloride 109 H (98-107) mmol/L BUN 51 H (7-17) mg/dL Creatinine 1.72 H (0.52-1.04) mg/dL POC Glucose (mg/dL) 130 H (75-99) mg/dL Magnesium 2.6 H (1.6-2.3) mg/dL Total Protein 5.6 L (6.3-8.2) g/dL Albumin 3.1 L (3.5-5.0) g/dL 10/06/19 10/06/19 10/06/19 Range/Units 03:42 04:00 04:43 WBC 11.6 H (3.8-10.6) k/uL RBC 2.59 L (3.80-5.40) m/uL Hgb 7.1 L (11.4-16.0) gm/dL Hct 23.3 L (34.0-46.0) % MCHC 30.7 L (31.0-37.0) g/dL RDW 18.2 H (11.5-15.5) % Plt Count 129 L (150-450) k/uL Neutrophils # 9.2 H (1.3-7.7) k/uL Chloride (98-107) mmol/L BUN (7-17) mg/dL Creatinine (0.52-1.04) mg/dL POC Glucose (mg/dL) 104 H 154 H (75-99) mg/dL Magnesium (1.6-2.3) mg/dL Total Protein (6.3-8.2) g/dL Albumin (3.5-5.0) g/dL 10/06/19 10/06/19 10/06/19 Range/Units 05:04 06:19 06:53 WBC (3.8-10.6) k/uL RBC (3.80-5.40) m/uL Hgb (11.4-16.0) gm/dL Hct (34.0-46.0) % MCHC (31.0-37.0) g/dL RDW (11.5-15.5) % Plt Count (150-450) k/uL Neutrophils # (1.3-7.7) k/uL Chloride (98-107) mmol/L BUN (7-17) mg/dL Creatinine (0.52-1.04) mg/dL POC Glucose (mg/dL) 178 H 176 H 152 H (75-99) mg/dL Magnesium (1.6-2.3) mg/dL Total Protein (6.3-8.2) g/dL Albumin (3.5-5.0) g/dL - Imaging and Cardiology Chest x-ray: image reviewed Assessment and Plan Assessment: 1. Single-vessel coronary artery disease, status post single vessel coronary ar tomi bypass grafting REYES to the left anterior descending coronary artery 2. Severe functional mitral valve regurgitation, status post mitral valve repair using a reduction annuloplasty with a 28 mm physio-II ring 3. Mild tricuspid valve regurgitation 4. Acute on chronic systolic heart failure, with a preoperative ejection fraction of 35-40% 5. History of coronary artery disease with previous stent placement to her left anterior descending coronary artery in 2017 6. Hypertension 7. Dyslipidemia 8. Poorly controlled insulin-dependent diabetes mellitus with a preoperative hemoglobin A1c of 10.7% 8. Ischemic cardiomyopathy 9. Pulmonary hypertension, likely related to valvular disease 10. Stage III chronic kidney disease with a baseline creatinine of 1.5 11. Obstructive sleep apnea 12. Preoperative urinary tract infection of Klebsiella pneumoniae, treated 13. Morbid obesity 14. Postoperative acute blood loss anemia 15. Postoperative third-degree heart block, paroxysmal controlled atrial fibrillation, status post exclusion of the left atrial appendage with 45 mm AtriClip Plan: 1. Continue aspirin, statin, Plavix. Will hold beta anaid until seen by Dr. Kendall 2. Continue IV amiodarone. Will transition to oral amiodarone after seen by Dr Jackelyn Kendall. No anticoagulation at this point. 3. Wean O2 as tolerated. Encourage incentive spirometry 10 times every hour while awake. 4. Bronchodilators per pulmonology management. 5. Increase activity, out of bed for all meals, ambulate as tolerated. PT/OT/cardiac rehab following. 6. Will monitor daily labs and chest x-rays. Electrolyte replacement per protocol. No transfusion. Will give 20 mg IV Lasix 1 today. 7. Pain controlled current medication regimen. Due to the patient's confusion hold opioids. No Toradol secondary to kidney function 8. Insulin management per primary care service. 9. Discontinue right IJ Cordis 10. May bladder scan to 6 hours and when necessary, straight catheter for greater than 300 mL of urine. 11. Keep atrial and ventricular epicardial pacemaker wires connected to generator with backup rate 60 bpm. 12. 1:1 sitter at the bedside around the clock for safety 13. More recommendations to follow based on patient's clinical course. Time with Patient: Greater than 30
--- NOTE | 2019-10-06 11:12 | XR ---
EXAMINATION TYPE: XR chest 1V DATE OF EXAM: 10/06/2019 COMPARISON: Prior chest x-ray 10/05/2019 HISTORY: Postop cardiac surgery TECHNIQUE: Single frontal view of the chest is obtained. FINDINGS: Patient is status post median sternotomy, atrial appendage clipping placement, mitral valv e replacement. Heart remains enlarged. Mediastinum shows widening as on prior exam. Central venous ca theter has been removed, sheath remains in place. No evident pneumothorax. Lung volumes are low and t he patient is rotated. Retrocardiac density is present, left-sided chest tube is no longer seen with certainty. Cardiac leads remain in place. IMPRESSION: Interval tube and line removal. Probable basilar atelectasis, persistent cardiomegaly an d postop changes. There may be left pleural effusion.
--- NOTE | 2019-10-06 11:43 | P.CRDCN ---
History of Present Illness History of present illness: This is Dr. 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 fib with several controlled IV amiodarone discontinued. She did receive a bolus and infusion at 1 mg/m for 6 hours Low-dose beta blockers. Currently she is on 12.5 mg twice daily Once her blood pressure improves she can go back to Coreg at a lower dose of 3.125 mg twice daily Hopefully rhythm improves and permanent pacing would not be needed at this point Reassessment of for about 3 months if her LV function does not improve, underlying left bundle branch block HPI Patient is in the postoperative state Prior to surgery she had an underlying left bundle branch block with cardio myopathy predominantly valvular heart disease Postoperatively by history she had third degree heart block as she was coming out of the OR did not have any strips Subsequently she has had mostly sinus pauses and one episode of AV node Wenckebach phenomenon but this was terminated with a PAC Paroxysmal A. fib with mostly controlled ventricular response Complains of being tired but is otherwise doing well postoperatively ROS: No fever chills or rigors, no cough, phlegm or expectoration, no nausea, vomiting or diarrhea, no hematuria, dysuria, no musculoskeletal complaints, no strokes or seizures, no skin lesions. EXAMINATION: Blood pressure 109/34 mmHg normal respirations pulse rate in the 60s and 70s sinus at this time afebrile Heart sounds are soft soft systolic murmur no S3 gallop Sounds are reduced bilaterally especially on the basis Abdomen is soft REVIEW OF LABS, ECG & MEDICAL DATA Hemoglobin 7.1 Sodium 138 potassium 4.2 BUN 51 creatinine 1.7 magnesium 2.6 Past Medical History Past Medical History: Coronary Artery Disease (CAD), Chest Pain / Angina, Heart Failure, Diabetes Mellitus, Eye Disorder, GERD/Reflux, Hyperlipidemia, Hypertension, Myocardial Infarction ([place]), Renal Disease, Sleep Apnea/CPAP/BIPAP, Thyroid Disorder Additional Past Medical History / Comment(s): Right cataract, Not using CPAP, admission in June for CHF exacerbation Last Myocardial Infarction Date:: 03/31/2015 History of Any Multi-Drug Resistant Organisms: None Reported Past Surgical History: Breast Surgery, Heart Catheterization, Heart Catheterization With Stent Additional Past Surgical History / Comment(s): Left breast bx-neg, buttocks sx- pt stated:" they told me I had gangrene and had sx to remove", lt cataract, several cardiac cath's.-most recent 2018 Past Anesthesia/Blood Transfusion Reactions: No Reported Reaction Date of Last Stent Placement:: 2016 Smoking Status: Never smoker - Past Family History Father Family Medical History: Unable to Obtain Additional Family Medical History / Comment(s): Father from motor vehicle accident Mother Family Medical History: Diabetes Mellitus, Hypertension Medications and Allergies Home Medications Medication Instructions Recorded Confirmed Type RX: Aspirin 81 mg PO DAILY #1 chewable 06/05/15 09/29/19 Rx RX: Multivitamins, Thera 1 tab PO DAILY 07/02/15 09/29/19 History [Multivitamin (formulary)] RX: Atorvastatin [Lipitor] 80 mg PO HS 08/01/15 09/29/19 History RX: Isosorbide Mononitrate ER 30 mg PO DAILY 08/01/15 09/29/19 History [Imdur] RX: Levothyroxine Sodium 75 mcg PO DAILY 05/01/16 09/29/19 History [Synthroid] RX: Citalopram Hydrobromide 20 mg PO DAILY tab 08/14/16 09/29/19 Rx [CeleXA] RX: Meclizine [Antivert] 12.5 mg PO BID PRN 11/18/16 09/29/19 History RX: Pantoprazole [Protonix] 40 mg PO DAILY 07/25/17 09/29/19 History RX: Allopurinol [Zyloprim] 300 mg PO DAILY 11/26/18 09/29/19 History RX: Carvedilol [Coreg] 6.25 mg PO BID 11/26/18 09/29/19 History RX: Nitroglycerin Sl Tabs 0.4 mg SUBLINGUAL Q5M PRN 11/26/18 09/29/19 History [Nitrostat] RX: Ferrous Sulfate [Iron (65 MG 325 mg PO BID 06/29/19 09/29/19 History Elemental)] RX: INSULIN LISPRO (HumaLOG) 6 units SQ BID 06/29/19 09/29/19 History [humaLOG] RX: Magnesium Oxide [Mag-Ox] 400 mg PO DAILY 06/29/19 09/29/19 History Furosemide [Lasix] 60 mg PO DAILY #60 tablet 07/01/19 09/29/19 Rx RX: Spironolactone [Aldactone] 25 mg PO DAILY #30 tablet 07/01/19 09/29/19 Rx Metolazone [Zaroxolyn] 2.5 mg PO DAILY 09/29/19 09/29/19 History RX: Insulin Detemir (Levemir) 22 unit SQ BID 09/29/19 10/03/19 History [Levemir] amLODIPine [Norvasc] 10 mg PO DAILY 09/29/19 09/29/19 History Allergies Allergy/AdvReac Type Severity Reaction Status Date / Time No Known Allergies Allergy Verified 10/03/19 06:31 Physical Exam Vitals: Vital Signs Temp Pulse Resp BP Pulse Ox 10/06/19 09:54 68 10/06/19 09:43 71 10/06/19 08:00 98.2 F 70 10 L 109/34 97 10/06/19 07:00 73 15 100/47 96 10/06/19 06:00 98.1 F 75 20 128/56 96 10/06/19 05:00 81 19 100/59 98 10/06/19 04:00 98.5 F 68 19 118/57 94 L 10/06/19 03:00 77 20 114/64 98 10/06/19 02:00 51 L 16 125/70 96 10/06/19 01:00 76 18 121/64 98 10/06/19 00:00 97.9 F 77 16 137/67 98 10/05/19 23:00 80 18 128/62 98 10/05/19 22:00 75 19 130/64 98 10/05/19 21:00 80 18 120/54 96 10/05/19 20:00 98.5 F 77 20 113/70 97 10/05/19 19:00 73 14 126/55 95 10/05/19 18:00 76 17 115/47 96 10/05/19 17:00 75 25 H 125/53 97 10/05/19 16:00 98.3 F 75 22 116/54 98 10/05/19 15:00 73 19 100/56 98 10/05/19 14:00 73 18 101/25 98 10/05/19 13:00 73 12 112/55 98 10/05/19 12:09 71 10/05/19 12:00 98.6 F 71 20 105/67 96 10/05/19 11:58 71 Intake and Output 10/05/19 10/06/19 10/06/19 22:59 06:59 14:59 Intake Total 246.293 242.906 Output Total 325 600 Balance -78.707 -357.094 Intake: IV 178 207 0.9 160 180 pressure bags 18 27 Intake, IV Titration 68.293 35.906 Amount Insulin Regular 100 unit 68.293 35.906 In Sodium Chloride 0.9% 100 ml @ Per Protocol IV .Q0M [facility] Rx#:[id number] Output: Urine 325 600 Other: Voiding Method Bedside Commode Bedside Commode Weight 88.1 kg ABP, PAP, CO, CI - Last 8 Hours Cardiac Output 4.6 Cardiac Output 4.6 Cardiac Output 4.6 Cardiac Output 4.6 Cardiac Index 2.6 Cardiac Index 2.6 Cardiac Index 2.6 Cardiac Index 2.6 Results 10/06/19 04:00 10/06/19 01:50 Cardiac Enzymes 10/06/19 Range/Units 01:50 AST 36 (14-36) U/L CBC 10/06/19 Range/Units 04:00 WBC 11.6 H (3.8-10.6) k/uL RBC 2.59 L (3.80-5.40) m/uL Hgb 7.1 L (11.4-16.0) gm/dL Hct 23.3 L (34.0-46.0) % Plt Count 129 L (150-450) k/uL Comprehensive Metabolic Panel 10/06/19 Range/Units 01:50 Sodium 138 (137-145) mmol/L Potassium 4.2 (3.5-5.1) mmol/L Chloride 109 H (98-107) mmol/L Carbon Dioxide 25 (22-30) mmol/L BUN 51 H (7-17) mg/dL Creatinine 1.72 H (0.52-1.04) mg/dL Glucose 98 (74-99) mg/dL Calcium 8.8 (8.4-10.2) mg/dL AST 36 (14-36) U/L ALT 11 (4-34) U/L Alkaline Phosphatase 66 (38-126) U/L Total Protein 5.6 L (6.3-8.2) g/dL Albumin 3.1 L (3.5-5.0) g/dL Current Medications Generic Name Dose Route Start Last Admin Trade Name Freq PRN Reason Stop Dose Admin Acetaminophen 1,000 mg 10/04/19 09:35 10/05/19 09:42 Tylenol Tab PO 1,000 mg Q6HR PRN Administration Fever and/ or Pain Albuterol/Ipratropium 3 ml 10/03/19 15:05 10/04/19 04:57 Duoneb 0.5 Mg-3 Mg/3 Ml Soln INHALATION 3 ml RT-Q2H PRN Administration Shortness Of Breath Or Wheezing Albuterol/Ipratropium 3 ml 10/03/19 19:50 10/06/19 09:39 Duoneb 0.5 Mg-3 Mg/3 Ml Soln INHALATION 3 ml RT-QID [facility] Administration Allopurinol 300 mg 10/04/19 09:00 10/06/19 10:07 Zyloprim PO 300 mg DAILY [facility] Administration Aspirin 325 mg 10/04/19 09:00 10/06/19 07:58 Aspirin PO 325 mg DAILY [facility] Administration Atorvastatin Calcium 40 mg 10/04/19 09:00 10/06/19 07:58 Lipitor PO 40 mg DAILY [facility] Administration Bisacodyl 10 mg 10/04/19 09:00 Dulcolax RECTAL DAILY PRN Constipation Citalopram Hydrobromide 20 mg 10/04/19 09:00 10/06/19 07:58 Celexa PO 20 mg DAILY [facility] Administration Clopidogrel Bisulfate 75 mg 10/04/19 09:00 10/06/19 07:58 Plavix PO 75 mg DAILY [facility] Administration Ferrous Sulfate 325 mg 10/03/19 17:30 10/06/19 06:42 Feosol PO 325 mg BID-W/MEALS [facility] Administration Heparin Sodium (Porcine) 5,000 unit 10/03/19 22:00 10/06/19 07:58 Heparin SQ 5,000 unit Q8HR [facility] Administration Amiodarone HCl 150 mg/ 103 mls @ 618 mls/hr 10/03/19 15:05 10/06/19 03:51 Dextrose/Water IV 618 mls/hr .Q10M PRN Administration A.FIB/FLUTTER Protocol Amiodarone HCl 360 mg/ 200 mls @ 33.333 mls/hr 10/03/19 15:05 10/06/19 04:12 Dextrose/Water IV 1 mg/min .Q6H PRN 33.333 mls/hr A.FIB/FLUTTER Administration Protocol 1 MG/MIN Amiodarone HCl 300 mg/ 250 mls @ 25 mls/hr 10/03/19 15:05 Dextrose/Water IV .Q10H PRN A.FIB/FLUTTER Protocol 0.5 MG/MIN Sodium Chloride 1,000 mls @ 20 mls/hr 10/03/19 15:05 10/05/19 16:25 Saline 0.9% IV 20 mls/hr .Q24H [facility] Administration Insulin Aspart 0 unit 10/06/19 12:30 Novolog SQ ACHS [facility] Protocol Insulin Aspart 3 unit 10/06/19 17:30 Novolog SQ AC-BID [facility] Insulin Detemir 15 unit 10/06/19 21:00 Levemir SQ BID@0700,2100 [facility] Levothyroxine Sodium 75 mcg 10/04/19 06:30 10/06/19 06:42 Synthroid PO 75 mcg DAILY@0630 [facility] Administration Magnesium Hydroxide 2,400 mg 10/04/19 09:00 Milk Of Magnesia PO BID PRN Constipation Metoclopramide HCl 10 mg 10/03/19 15:05 Reglan IVP Q4H PRN Nausea And Vomiting Metoprolol Tartrate 12.5 mg 10/06/19 21:00 Lopressor PO BID [facility] Miscellaneous Information 1 each 10/03/19 15:05 Potassium Per Protocol MISCELLANE DAILY PRN Per Protocol Protocol Miscellaneous Information 1 each 10/03/19 15:05 Magnesium Per Protocol MISCELLANE DAILY PRN Per Protocol Protocol Miscellaneous Information 1 each 10/03/19 15:05 Phosphorus Per Protocol MISCELLANE DAILY PRN Per Protocol Protocol Ondansetron HCl 4 mg 10/03/19 15:05 10/05/19 09:19 Zofran IVP 4 mg Q6HR PRN Administration Nausea And Vomiting Pantoprazole Sodium 40 mg 10/04/19 07:30 10/06/19 06:42 Protonix PO 40 mg [id number]-[id number] [facility] Administration Senna/Docusate Sodium 2 each 10/04/19 21:00 10/05/19 20:25 Senokot-S PO 2 each HS [facility] Administration Sodium Chloride 10 ml 10/03/19 21:00 10/05/19 20:25 Saline Flush IV 10 ml BID [facility] Administration Intake and Output 10/05/19 10/06/19 10/06/19 22:59 06:59 14:59 Intake Total 246.293 242.906 Output Total 325 600 Balance -78.707 -357.094 Intake: IV 178 207 0.9 160 180 pressure bags 18 27 Intake, IV Titration 68.293 35.906 Amount Insulin Regular 100 unit 68.293 35.906 In Sodium Chloride 0.9% 100 ml @ Per Protocol IV .Q0M [facility] Rx#:[id number] Output: Urine 325 600 Other: Voiding Method Bedside Commode Bedside Commode Weight 88.1 kg 10/06/19 04:00 10/06/19 01:50
[2019-10-06 12:27] LABS: Glucose,Whole Blood 164 mg/dL (75-99)
[2019-10-06] MEDS: INSULIN ASPART (NovoLOG) 100 UNIT/ML VIAL SQ SCH ×4 (12:28→20:37)
[2019-10-06] MEDS: SODIUM CHLORIDE 0.9% 1,000 ML IV SCH (12:29)
--- NOTE | 2019-10-06 12:46 | P.PN ---
Subjective This is a pleasant 68 years old female with past medical history of coronary artery disease, heart failure status post stent placement, diabetes mellitus, GERD, hypertension, hyperlipidemia, sleep apnea on CPAP/BiPAP, hypothyroidism. She is a status post 1 vessel bypass surgery and today postop day #1. She also got extubated today and currently she is on nasal cannula at 4 L/m was saturating 95-98%, patient denies chest pain or dyspnea except as surgical site which is expected. Rest of Vitas looks stable. Labs reviewed showed mild leukocytosis of 12 K, INR is normal, sugar controlled, creatinine 1.9 (baseline 1.4-2.0) Chest x-ray: Improved radiation Patient is currently on aspirin, metoprolol, oral levothyroxine, Protonix 10/05/2019 Patient remains in the ICU with no chest pain or dyspnea. However today her blood pressure dropped with physical therapy session went down to 80/40, patient brought back on lying position in the chair, she was fully awake and oriented however she looked pale with no chest pain or dyspnea. Recheck blood pressure show improvement, please see records. Progressive vitals are stable. Sugar controlled 141-152 today her chest tube and swelling Came out 10/06/2019 Patient is awake and alert, looks tired but she denies chest pain or dyspnea and vitals are stable. Sugar controlled and WBC is trending down to 11.6 K. Creatinine down to 1.7. Patient was on insulin drip which could be stopped, patient is eating. Resume her Levemir 15 units twice a day (was 22 units at home) and 3 units with meals (was 6 units at home), keep insulin sliding scale. Cardiology team also following the case today. Objective - Vital Signs Vital signs: Vital Signs Temp 98.2 F 10/06/19 08:00 Pulse 69 10/06/19 12:37 Resp 10 L 10/06/19 08:00 BP 109/34 10/06/19 08:00 Pulse Ox 97 10/06/19 08:00 Intake & Output 10/05/19 10/06/19 10/06/19 18:59 06:59 18:59 Intake Total 335.219 354.963 655 Output Total 1135 750 Balance -799.781 -395.037 655 Weight 88.1 kg Intake: IV 262 299 115 0.9 220 260 100 pressure bags 42 39 15 Intake, IV Titration 73.219 55.963 Amount Insulin Regular 100 unit 53.219 55.963 In Sodium Chloride 0.9% 100 ml @ Per Protocol IV .Q0M [facility] Rx#:[id number] Sodium Chloride 0.9% 1, 20 000 ml @ 20 mls/hr IV . Q24H [facility] Rx#:[id number] Oral 540 Output: Chest Tube Drainage 90 left pleural 60 mediastinal x2 10 right pleural 20 Urine 1045 750 Other: Voiding Method Indwelling Catheter Bedside Commode # Voids 1 ABP, PAP, CO, CI - Last Documented Arterial Blood Pressure 130/42 Pulmonary Artery Pressure 46/22 Cardiac Output 4.6 Cardiac Index 2.6 - Exam GENERAL: The patient is alert and oriented x3, not in any acute distress. Well developed, well nourished. HEENT: Pupils are round and equally reacting to light. EOMI. No scleral icterus. No conjunctival pallor. Normocephalic, atraumatic. No pharyngeal erythema. No thyromegaly. -CARDIOVASCULAR: S1 and S2 present. No murmurs, rubs, or gallops. Sternal wound is in a dressing PULMONARY: Chest is clear to auscultation, no wheezing or crackles. ABDOMEN: Soft, nontender, nondistended, normoactive bowel sounds. No palpable organomegaly. MUSCULOSKELETAL: No joint swelling or deformity. EXTREMITIES: No cyanosis, clubbing, or pedal edema. NEUROLOGICAL: Gross neurological examination did not reveal any focal deficits. SKIN: No rashes. No petechiae - Labs CBC & Chem 7: 10/06/19 04:00 10/06/19 01:50 Labs: Abnormal Lab Results - Last 24 Hours (Table) 10/05/19 10/05/19 10/05/19 Range/Units 13:23 16:22 17:15 WBC (3.8-10.6) k/uL RBC (3.80-5.40) m/uL Hgb (11.4-16.0) gm/dL Hct (34.0-46.0) % MCHC (31.0-37.0) g/dL RDW (11.5-15.5) % Plt Count (150-450) k/uL Neutrophils # (1.3-7.7) k/uL Chloride (98-107) mmol/L BUN (7-17) mg/dL Creatinine (0.52-1.04) mg/dL POC Glucose (mg/dL) 123 H 121 H 129 H (75-99) mg/dL Magnesium (1.6-2.3) mg/dL Total Protein (6.3-8.2) g/dL Albumin (3.5-5.0) g/dL 10/05/19 10/05/19 10/05/19 Range/Units 18:14 19:11 21:03 WBC (3.8-10.6) k/uL RBC (3.80-5.40) m/uL Hgb (11.4-16.0) gm/dL Hct (34.0-46.0) % MCHC (31.0-37.0) g/dL RDW (11.5-15.5) % Plt Count (150-450) k/uL Neutrophils # (1.3-7.7) k/uL Chloride (98-107) mmol/L BUN (7-17) mg/dL Creatinine (0.52-1.04) mg/dL POC Glucose (mg/dL) 127 H 156 H 208 H (75-99) mg/dL Magnesium (1.6-2.3) mg/dL Total Protein (6.3-8.2) g/dL Albumin (3.5-5.0) g/dL 10/05/19 10/05/19 10/06/19 Range/Units 22:01 23:48 01:50 WBC (3.8-10.6) k/uL RBC (3.80-5.40) m/uL Hgb (11.4-16.0) gm/dL Hct (34.0-46.0) % MCHC (31.0-37.0) g/dL RDW (11.5-15.5) % Plt Count (150-450) k/uL Neutrophils # (1.3-7.7) k/uL Chloride 109 H (98-107) mmol/L BUN 51 H (7-17) mg/dL Creatinine 1.72 H (0.52-1.04) mg/dL POC Glucose (mg/dL) 174 H 130 H (75-99) mg/dL Magnesium (1.6-2.3) mg/dL Total Protein 5.6 L (6.3-8.2) g/dL Albumin 3.1 L (3.5-5.0) g/dL 10/06/19 10/06/19 10/06/19 Range/Units 01:50 03:42 04:00 WBC 11.6 H (3.8-10.6) k/uL RBC 2.59 L (3.80-5.40) m/uL Hgb 7.1 L (11.4-16.0) gm/dL Hct 23.3 L (34.0-46.0) % MCHC 30.7 L (31.0-37.0) g/dL RDW 18.2 H (11.5-15.5) % Plt Count 129 L (150-450) k/uL Neutrophils # 9.2 H (1.3-7.7) k/uL Chloride (98-107) mmol/L BUN (7-17) mg/dL Creatinine (0.52-1.04) mg/dL POC Glucose (mg/dL) 104 H (75-99) mg/dL Magnesium 2.6 H (1.6-2.3) mg/dL Total Protein (6.3-8.2) g/dL Albumin (3.5-5.0) g/dL 10/06/19 10/06/19 10/06/19 Range/Units 04:43 05:04 06:19 WBC (3.8-10.6) k/uL RBC (3.80-5.40) m/uL Hgb (11.4-16.0) gm/dL Hct (34.0-46.0) % MCHC (31.0-37.0) g/dL RDW (11.5-15.5) % Plt Count (150-450) k/uL Neutrophils # (1.3-7.7) k/uL Chloride (98-107) mmol/L BUN (7-17) mg/dL Creatinine (0.52-1.04) mg/dL POC Glucose (mg/dL) 154 H 178 H 176 H (75-99) mg/dL Magnesium (1.6-2.3) mg/dL Total Protein (6.3-8.2) g/dL Albumin (3.5-5.0) g/dL 10/06/19 10/06/19 Range/Units 06:53 12:25 WBC (3.8-10.6) k/uL RBC (3.80-5.40) m/uL Hgb (11.4-16.0) gm/dL Hct (34.0-46.0) % MCHC (31.0-37.0) g/dL RDW (11.5-15.5) % Plt Count (150-450) k/uL Neutrophils # (1.3-7.7) k/uL Chloride (98-107) mmol/L BUN (7-17) mg/dL Creatinine (0.52-1.04) mg/dL POC Glucose (mg/dL) 152 H 164 H (75-99) mg/dL Magnesium (1.6-2.3) mg/dL Total Protein (6.3-8.2) g/dL Albumin (3.5-5.0) g/dL Assessment and Plan Assessment: coronary artery disease, status post 1 vessel bypass surgery Hypertension Diabetes mellitus Hyperlipidemia chronic kidney disease, stage III History of coronary artery disease, status post stent placement GERD Current systolic cardiac failure, EF 35-40% Severe mitral regurgitation, severe tricuspid regurgitation Severe pulmonary hypertension Hypothyroidism Sleep apnea on CPAP/BiPAP chronic Plan: This is a pleasant 68 years old female who was admitted for cardiac bypass surgery and valve repair, continue with aspirin, metoprolol and levothyroxine. Resume insulin and monitor sugar. Labs and medication were reviewed.. Continue same treatment. Continue with symptomatic treatment. Resume home medication. Monitor lytes and vitals. DVT and GI prophylaxis. Further recommendations of the clinical course of the patient DVT prophylaxis: Subcutaneous heparin GI Prophylaxis: Ppi Prognosis is guarded Thank you for consulting us
--- NOTE | 2019-10-06 12:52 | P.PN ---
Subjective Progress Note Date: 10/06/19 Principal diagnosis: Status post CABG, MVR. Postoperative day #3 68-year-old of Dr. Moore, with past medical history of coronary artery disease with previous stenting of the LAD in 2017, hypertension, hyperlipidemia, insulin-dependent diabetes mellitus, morbid obesity, stage III chronic kidney disease, pulmonary hypertension, family history of hypertension and diabetes. Patient was hospitalized last November 2018 when she presented with complaints of severe, constant, sharp chest pain with left arm radiation. Patient had echocardiogram that showed a moderately impaired LV function with EF of 35-40%, mild aortic regurgitation, mild mitral annular calcification and moderate to severe mitral regurgitation. There was evidence of severe pulmonary hypertension and moderate tricuspid regurg. Patient went on to have cardiac catheterization that showed LAD stenosis of 70% in the proximal portion. YULIANA showed EF of 35-40%, severe mitral regurgitation, with a dilated annulus and poor coaptation of the mitral leaflets and moderate to severe tricuspid regurgitation. She was referred to CT surgery for surgical evaluation, and it took her several months to obtain dental clearance, and optimize her diabetes. Today on 10/03/2019 patient had a one-vessel bypass with REYES to LAD, and mitral valve repair, his occlusion of the left atrial appendage. She is seen in the po stoperative period in the intensive care unit, she is intubated, sedated on mechanical ventilator, current vent settings assist control mode with a rate of 16, tidal vital 350, FiO2 50% and PEEP of 8. Current drips include 0.9 normal saline at a rate of 50, Primacor at 0.3 mics per kilo per minute, levo fed at 0.04 mics per kilo per minute, insulin drip, and Diprivan at 20 mics per kilo per minute. PA pressure is 48/27, CVP 13, cardiac output and index are 4.6 and 2.6 respectively, AV wires in place, patient is on VVI Mode and is currently pacing at 100%. 2 mediastinal chest tubes with 130 mL of sanguinous output, left pleural and right pleural with 120 and 50 ML of sanguinous output resp ectively. Postop blood work shows a white blood cell count of 12.3, hemoglobin of 8.7, sodium is 136, the rest of electrolytes are within normal limits, BUN 62 and creatinine is 1.74. Patient was reevaluated today on 10/04/19, patient was extubated around 4 AM this morning. He tolerated the extubation quite well. Presently on IV fluid at 50 mL per hour. Patient has intermittent episodes of confusion. Remains on Primacor at 0. one 5 mcg/kg/m. Patient is paced with VVI pacemaker at 50 bpm. Her cardiac index is 2.8, cardiac output is 5 CVP is 10. Chest x-ray showed minimal atelectasis at the bases. Patient had REYES to LAD, mitral valve repair and she again she is postoperative day #1. Patient is on 6 L high flow nasal cannula. O2 saturations 98%. Achieving 500 mL on her incentive spirometer. She has noted some surgical type of pain at the side of her chest tube insertion, and mostly when taking a deep breath. Denies shortness of breath. Mediastinal right and left pleural chest tubes remain in place. On continuous wall suction. No air leak. Draining thin serosanguineous drainage with the 130 mL output in the last 8 hours and 300 mL output since surgery from the media stinal chest tubes. Patient was reevaluated today on 10/05/19, patient remains sitting in bed, doing well, no specific complaints. She is oriented 2 mostly [address] person and place. Not oriented to time. Denies any complaints, she has some vague chest pain upon taking a deep breath. She is hemodynamically stable, not requiring any pressors. Her cardiac index is 2.6, cardiac output is 4.6. CVP is 14. Chest x-ray showed minimal atelectasis at the bases especially at the left base. Patient remains on 4 L nasal cannula, and O2 saturations 96%. She is achieving about 500 MLS her incentive spirometer. Her mediastinal left and right pleural chest tubes remained in place, no air leak noted. Drainage was noted, amount is becoming less and less over the last 2 days. She had a T-max of 99.7. Otherwise the patient is doing great. She does seem to be globally weak Patient was reevaluated today on 10/06/19, remains in the ICU, patient is sitting in a recliner. Denies any shortness of breath, no cough no wheezing, presently she has sinus rhythm and a second-degree AV block, hemodynamically stable, not requiring any pressors and at night she went into controlled atrial fibrillation. Placed on amiodarone and she remains on protocol this morning. Dr. Tavarez was consulted regarding her arrhythmia. He is recommending switching patient to oral amiodarone. Low-dose beta blockers and possibly eventually placed the patient back on her Coreg twice a day. No plans at least at this point to place a permanent pacer. He will assess the patient on outpatient basis chest x-ray today showed mostly left basilar atelectasis. Objective - Vital Signs Vital signs: Vital Signs Temp 98.2 F 10/06/19 08:00 Pulse 69 10/06/19 12:37 Resp 18 10/06/19 12:00 BP 104/53 10/06/19 12:00 Pulse Ox 95 10/06/19 12:00 Intake & Output 10/05/19 10/06/19 10/06/19 18:59 06:59 18:59 Intake Total 335.219 354.963 655 Output Total 1135 750 Balance -799.781 -395.037 655 Weight 88.1 kg Intake: IV 262 299 115 0.9 220 260 100 pressure bags 42 39 15 Intake, IV Titration 73.219 55.963 Amount Insulin Regular 100 unit 53.219 55.963 In Sodium Chloride 0.9% 100 ml @ Per Protocol IV .Q0M [facility] Rx#:[id number] Sodium Chloride 0.9% 1, 20 000 ml @ 20 mls/hr IV . Q24H [facility] Rx#:[id number] Oral 540 Output: Chest Tube Drainage 90 left pleural 60 mediastinal x2 10 right pleural 20 Urine 1045 750 Other: Voiding Method Indwelling Catheter Bedside Commode # Voids 1 ABP, PAP, CO, CI - Last Documented Arterial Blood Pressure 130/42 Pulmonary Artery Pressure 46/22 Cardiac Output 4.6 Cardiac Index 2.6 - Exam GENERAL EXAM: Revealed 68-year-old female in no distress. On 2 L nasal cannula. O2 saturation is 96% Head: Atraumatic, normocephalic. HEENT: PERRLA, EOMI, no icterus, no neck masses, no JVD. CHEST: No chest wall deformity. Diminished breath sounds at the bases no crackles or rhonchi and wheezes. CVS: Regular rate and rhythm, normal S1 and S2, no gallops, no murmurs, no rubs ABDOMEN: Soft, nontender. No hepatosplenomegaly, normal bowel sounds, no guarding or rigidity. EXTREMITIES: No clubbing, no edema, no cyanosis, 2+ pulses and upper and lower extremities. MUSCULOSKELETAL: Muscle strength and tone normal. SPINE: No scoliosis or deformity SKIN: No rashes CENTRAL NERVOUS SYSTEM: Alert and oriented 2, not oriented to time. - Labs CBC & Chem 7: 10/06/19 04:00 10/06/19 01:50 Labs: Abnormal Lab Results - Last 24 Hours (Table) 10/05/19 10/05/19 10/05/19 Range/Units 13:23 16:22 17:15 WBC (3.8-10.6) k/uL RBC (3.80-5.40) m/uL Hgb (11.4-16.0) gm/dL Hct (34.0-46.0) % MCHC (31.0-37.0) g/dL RDW (11.5-15.5) % Plt Count (150-450) k/uL Neutrophils # (1.3-7.7) k/uL Chloride (98-107) mmol/L BUN (7-17) mg/dL Creatinine (0.52-1.04) mg/dL POC Glucose (mg/dL) 123 H 121 H 129 H (75-99) mg/dL Magnesium (1.6-2.3) mg/dL Total Protein (6.3-8.2) g/dL Albumin (3.5-5.0) g/dL 10/05/19 10/05/19 10/05/19 Range/Units 18:14 19:11 21:03 WBC (3.8-10.6) k/uL RBC (3.80-5.40) m/uL Hgb (11.4-16.0) gm/dL Hct (34.0-46.0) % MCHC (31.0-37.0) g/dL RDW (11.5-15.5) % Plt Count (150-450) k/uL Neutrophils # (1.3-7.7) k/uL Chloride (98-107) mmol/L BUN (7-17) mg/dL Creatinine (0.52-1.04) mg/dL POC Glucose (mg/dL) 127 H 156 H 208 H (75-99) mg/dL Magnesium (1.6-2.3) mg/dL Total Protein (6.3-8.2) g/dL Albumin (3.5-5.0) g/dL 10/05/19 10/05/19 10/06/19 Range/Units 22:01 23:48 01:50 WBC (3.8-10.6) k/uL RBC (3.80-5.40) m/uL Hgb (11.4-16.0) gm/dL Hct (34.0-46.0) % MCHC (31.0-37.0) g/dL RDW (11.5-15.5) % Plt Count (150-450) k/uL Neutrophils # (1.3-7.7) k/uL Chloride 109 H (98-107) mmol/L BUN 51 H (7-17) mg/dL Creatinine 1.72 H (0.52-1.04) mg/dL POC Glucose (mg/dL) 174 H 130 H (75-99) mg/dL Magnesium (1.6-2.3) mg/dL Total Protein 5.6 L (6.3-8.2) g/dL Albumin 3.1 L (3.5-5.0) g/dL 10/06/19 10/06/19 10/06/19 Range/Units 01:50 03:42 04:00 WBC 11.6 H (3.8-10.6) k/uL RBC 2.59 L (3.80-5.40) m/uL Hgb 7.1 L (11.4-16.0) gm/dL Hct 23.3 L (34.0-46.0) % MCHC 30.7 L (31.0-37.0) g/dL RDW 18.2 H (11.5-15.5) % Plt Count 129 L (150-450) k/uL Neutrophils # 9.2 H (1.3-7.7) k/uL Chloride (98-107) mmol/L BUN (7-17) mg/dL Creatinine (0.52-1.04) mg/dL POC Glucose (mg/dL) 104 H (75-99) mg/dL Magnesium 2.6 H (1.6-2.3) mg/dL Total Protein (6.3-8.2) g/dL Albumin (3.5-5.0) g/dL 10/06/19 10/06/19 10/06/19 Range/Units 04:43 05:04 06:19 WBC (3.8-10.6) k/uL RBC (3.80-5.40) m/uL Hgb (11.4-16.0) gm/dL Hct (34.0-46.0) % MCHC (31.0-37.0) g/dL RDW (11.5-15.5) % Plt Count (150-450) k/uL Neutrophils # (1.3-7.7) k/uL Chloride (98-107) mmol/L BUN (7-17) mg/dL Creatinine (0.52-1.04) mg/dL POC Glucose (mg/dL) 154 H 178 H 176 H (75-99) mg/dL Magnesium (1.6-2.3) mg/dL Total Protein (6.3-8.2) g/dL Albumin (3.5-5.0) g/dL 10/06/19 10/06/19 Range/Units 06:53 12:25 WBC (3.8-10.6) k/uL RBC (3.80-5.40) m/uL Hgb (11.4-16.0) gm/dL Hct (34.0-46.0) % MCHC (31.0-37.0) g/dL RDW (11.5-15.5) % Plt Count (150-450) k/uL Neutrophils # (1.3-7.7) k/uL Chloride (98-107) mmol/L BUN (7-17) mg/dL Creatinine (0.52-1.04) mg/dL POC Glucose (mg/dL) 152 H 164 H (75-99) mg/dL Magnesium (1.6-2.3) mg/dL Total Protein (6.3-8.2) g/dL Albumin (3.5-5.0) g/dL Assessment and Plan Assessment: Impression: Status post 1 vessel bypass, REYES to LAD and mitral valve repair postoperative day #3 Acute blood loss anemia, outcome of bypass surgery, this is expected. Acute on chronic congestive heart failure, systolic in nature. History of chronic kidney disease. Obstructive sleep apnea syndrome. Morbid obesity. Postoperative cardiac arrhythmia, being addressed by cardiology. This is exp ected. History of diabetes, poorly controlled, patient is on insulin drip. Benign essential hypertension. Postoperative atelectasis, expected after surgery Previous stenting of LAD. Ischemic cardiomyopathy and LV dysfunction with ejection fraction of 35%. Pulmonary hypertension related to valvular heart disease. Recommendation: Continue incentive spirometry. Continue low-dose beta blockers Plavix and statins. Continue to wean oxygen as tolerated. Continue bronchodilators. Early ambulation. Continue insulin for diabetes management. Continue pain control management. Increase activity as tolerated We will continue to follow. Time with Patient: Less than 30
--- NOTE | 2019-10-06 13:30 | P.CONS ---
History of Present Illness - Chief Complaint Cardiac debility - History of Present Illness I had the opportunity to see patient for inpatient rehab consultation with regard to cardiac debility. She was admitted to [facility] October 02 for elective single-vessel CABG and MVR. Seen in consultation by Dr. caruso, Dr. Chaudhry or Dr. Kendall. Chest x-rays followed for atelectasis, cardiomegaly and postoperative change. PT reports minimal assistance for bed mobility and two- person assistance for gait 160 feet with 3 rests. OT reports moderate assistance for upper dressing, total assist for lower dressing, maximal assistance for bathing and toileting. 2 person moderate to maximal assistance functional mobility. Previous functional history as elicited from patient: 68-year-old right-handed female is lives in one floor home with . Both retired. generative does the cooking and laundry in both drive. Patient describes independent with standing shower and gait without device. Dr. Owens is PMD. Denies tobacco or alcohol. Family history mother with heart disease, infected hospital now. Review of Systems Review of systems: ENT: Denies sneezes or discharge. Eyes: Denies discharge or photophobia. Cardiac: Sternal discomfort. Pulmonary: At least mild shortness of breath. Breast: Denies discharge or lumps. Gastrointestinal: Denies nausea, emesis, constipation, diarrhea. Genitourinary: Denies discharge or frequency. Musculoskeletal: Denies muscle or bone aches. Neurologic: General weakness. Endocrine: Denies shakes or sweats. Oncology: Denies cancers. Dermatologic: Denies rash, itching, pruritus. ALLERGY/immunology: Denies sneezes, rashes. Past Medical History Past Medical History: Coronary Artery Disease (CAD), Chest Pain / Angina, Heart Failure, Diabetes Mellitus, Eye Disorder, GERD/Reflux, Hyperlipidemia, Hypertension, Myocardial Infarction ([place]), Renal Disease, Sleep Apnea/CPAP/BIPAP, Thyroid Disorder Additional Past Medical History / Comment(s): Right cataract, Not using CPAP, admission in June for CHF exacerbation Last Myocardial Infarction Date:: 03/31/2015 History of Any Multi-Drug Resistant Organisms: None Reported Past Surgical History: Breast Surgery, Heart Catheterization, Heart Catheterization With Stent Additional Past Surgical History / Comment(s): Left breast bx-neg, buttocks sx- pt stated:" they told me I had gangrene and had sx to remove", lt cataract, several cardiac cath's.-most recent 2018 Past Anesthesia/Blood Transfusion Reactions: No Reported Reaction Date of Last Stent Placement:: 2016 Smoking Status: Never smoker - Past Family History Father Family Medical History: Unable to Obtain Additional Family Medical History / Comment(s): Father from motor vehicle accident Mother Family Medical History: Diabetes Mellitus, Hypertension Medications and Allergies Home Medications Medication Instructions Recorded Confirmed Type Aspirin 81 mg PO DAILY #1 chewable 06/05/15 09/29/19 Rx Multivitamins, Thera [Multivitamin 1 tab PO DAILY 07/02/15 09/29/19 History (formulary)] Atorvastatin [Lipitor] 80 mg PO HS 08/01/15 09/29/19 History Isosorbide Mononitrate ER [Imdur] 30 mg PO DAILY 08/01/15 09/29/19 History Levothyroxine Sodium [Synthroid] 75 mcg PO DAILY 05/01/16 09/29/19 History Citalopram Hydrobromide [CeleXA] 20 mg PO DAILY tab 08/14/16 09/29/19 Rx Meclizine [Antivert] 12.5 mg PO BID PRN 11/18/16 09/29/19 History Pantoprazole [Protonix] 40 mg PO DAILY 07/25/17 09/29/19 History Allopurinol [Zyloprim] 300 mg PO DAILY 11/26/18 09/29/19 History Carvedilol [Coreg] 6.25 mg PO BID 11/26/18 09/29/19 History Nitroglycerin Sl Tabs [Nitrostat] 0.4 mg SUBLINGUAL Q5M PRN 11/26/18 09/29/19 History Ferrous Sulfate [Iron (65 MG 325 mg PO BID 06/29/19 09/29/19 History Elemental)] INSULIN LISPRO (HumaLOG) [humaLOG] 6 units SQ BID 06/29/19 09/29/19 History Magnesium Oxide [Mag-Ox] 400 mg PO DAILY 06/29/19 09/29/19 History Furosemide [Lasix] 60 mg PO DAILY #60 tablet 07/01/19 09/29/19 Rx Spironolactone [Aldactone] 25 mg PO DAILY #30 tablet 07/01/19 09/29/19 Rx Insulin Detemir (Levemir) [Levemir] 22 unit SQ BID 09/29/19 10/03/19 History Metolazone [Zaroxolyn] 2.5 mg PO DAILY 09/29/19 09/29/19 History amLODIPine [Norvasc] 10 mg PO DAILY 09/29/19 09/29/19 History Allergies Allergy/AdvReac Type Severity Reaction Status Date / Time No Known Allergies Allergy Verified 10/03/19 06:31 Physical Exam Vitals: Vital Signs Temp Pulse Resp BP Pulse Ox 10/06/19 12:37 69 10/06/19 12:27 70 10/06/19 12:00 97.5 F L 65 18 104/53 95 10/06/19 11:00 69 22 115/66 94 L 10/06/19 10:00 70 20 117/66 97 10/06/19 09:54 68 10/06/19 09:43 71 10/06/19 09:00 73 23 104/54 97 10/06/19 08:00 98.2 F 70 10 L 109/34 97 10/06/19 07:00 73 15 100/47 96 10/06/19 06:00 98.1 F 75 20 128/56 96 10/06/19 05:00 81 19 100/59 98 10/06/19 04:00 98.5 F 68 19 118/57 94 L 10/06/19 03:00 77 20 114/64 98 10/06/19 02:00 51 L 16 125/70 96 10/06/19 01:00 76 18 121/64 98 10/06/19 00:00 97.9 F 77 16 137/67 98 10/05/19 23:00 80 18 128/62 98 10/05/19 22:00 75 19 130/64 98 10/05/19 21:00 80 18 120/54 96 10/05/19 20:00 98.5 F 77 20 113/70 97 10/05/19 19:00 73 14 126/55 95 10/05/19 18:00 76 17 115/47 96 10/05/19 17:00 75 25 H 125/53 97 10/05/19 16:00 98.3 F 75 22 116/54 98 10/05/19 15:00 73 19 100/56 98 10/05/19 14:00 73 18 101/25 98 Intake and Output 10/05/19 10/06/19 10/06/19 22:59 06:59 14:59 Intake Total 246.293 242.906 655 Output Total 325 600 Balance -78.707 -357.094 655 Intake: IV 178 207 115 0.9 160 180 100 pressure bags 18 27 15 Intake, IV Titration 68.293 35.906 Amount Insulin Regular 100 unit 68.293 35.906 In Sodium Chloride 0.9% 100 ml @ Per Protocol IV .Q0M [facility] Rx#:[id number] Oral 540 Output: Urine 325 600 Other: Voiding Method Bedside Commode Bedside Commode # Voids 1 Weight 88.1 kg ABP, PAP, CO, CI - Last 8 Hours Cardiac Output 4.6 Cardiac Output 4.6 Cardiac Index 2.6 Cardiac Index 2.6 Skin: Mildly atrophic, intact. General: Obese build and comfortable appearance. Head: Normocephalic, atraumatic. Eyes: Symmetric. Pupils equal round. Ears: Symmetric. Hearing within normal limits. Mouth: Clear. Neck: Supple. Carotid without bruit. Cardiac: Regular rate and rhythm. Clean and dressed midline sternal incision. Wearing harness. Lungs: Clear anteriorly and posteriorly. Abdomen: Soft active nontender. Extremities: Normal tone. Neurological: Mental status: Alert, cooperative, pleasant. Cranial nerves: Symmetric facial tone and trapezius. Motor: Normal strength and isolation all 4 limbs. Sensation: Intact throughout. DTRs: Symmetric and equal throughout. Mobility: Requires assistance for bed mobility and transfer to bedside Diamond chair. Results CBC & Chem 7: 10/06/19 04:00 10/06/19 01:50 Labs: Abnormal Lab Results - Last 24 Hours (Table) 10/05/19 10/05/19 10/05/19 Range/Units 13:23 16:22 17:15 WBC (3.8-10.6) k/uL RBC (3.80-5.40) m/uL Hgb (11.4-16.0) gm/dL Hct (34.0-46.0) % MCHC (31.0-37.0) g/dL RDW (11.5-15.5) % Plt Count (150-450) k/uL Neutrophils # (1.3-7.7) k/uL Chloride (98-107) mmol/L BUN (7-17) mg/dL Creatinine (0.52-1.04) mg/dL POC Glucose (mg/dL) 123 H 121 H 129 H (75-99) mg/dL Magnesium (1.6-2.3) mg/dL Total Protein (6.3-8.2) g/dL Albumin (3.5-5.0) g/dL 10/05/19 10/05/19 10/05/19 Range/Units 18:14 19:11 21:03 WBC (3.8-10.6) k/uL RBC (3.80-5.40) m/uL Hgb (11.4-16.0) gm/dL Hct (34.0-46.0) % MCHC (31.0-37.0) g/dL RDW (11.5-15.5) % Plt Count (150-450) k/uL Neutrophils # (1.3-7.7) k/uL Chloride (98-107) mmol/L BUN (7-17) mg/dL Creatinine (0.52-1.04) mg/dL POC Glucose (mg/dL) 127 H 156 H 208 H (75-99) mg/dL Magnesium (1.6-2.3) mg/dL Total Protein (6.3-8.2) g/dL Albumin (3.5-5.0) g/dL 10/05/19 10/05/19 10/06/19 Range/Units 22:01 23:48 01:50 WBC (3.8-10.6) k/uL RBC (3.80-5.40) m/uL Hgb (11.4-16.0) gm/dL Hct (34.0-46.0) % MCHC (31.0-37.0) g/dL RDW (11.5-15.5) % Plt Count (150-450) k/uL Neutrophils # (1.3-7.7) k/uL Chloride 109 H (98-107) mmol/L BUN 51 H (7-17) mg/dL Creatinine 1.72 H (0.52-1.04) mg/dL POC Glucose (mg/dL) 174 H 130 H (75-99) mg/dL Magnesium (1.6-2.3) mg/dL Total Protein 5.6 L (6.3-8.2) g/dL Albumin 3.1 L (3.5-5.0) g/dL 10/06/19 10/06/19 10/06/19 Range/Units 01:50 03:42 04:00 WBC 11.6 H (3.8-10.6) k/uL RBC 2.59 L (3.80-5.40) m/uL Hgb 7.1 L (11.4-16.0) gm/dL Hct 23.3 L (34.0-46.0) % MCHC 30.7 L (31.0-37.0) g/dL RDW 18.2 H (11.5-15.5) % Plt Count 129 L (150-450) k/uL Neutrophils # 9.2 H (1.3-7.7) k/uL Chloride (98-107) mmol/L BUN (7-17) mg/dL Creatinine (0.52-1.04) mg/dL POC Glucose (mg/dL) 104 H (75-99) mg/dL Magnesium 2.6 H (1.6-2.3) mg/dL Total Protein (6.3-8.2) g/dL Albumin (3.5-5.0) g/dL 10/06/19 10/06/19 10/06/19 Range/Units 04:43 05:04 06:19 WBC (3.8-10.6) k/uL RBC (3.80-5.40) m/uL Hgb (11.4-16.0) gm/dL Hct (34.0-46.0) % MCHC (31.0-37.0) g/dL RDW (11.5-15.5) % Plt Count (150-450) k/uL Neutrophils # (1.3-7.7) k/uL Chloride (98-107) mmol/L BUN (7-17) mg/dL Creatinine (0.52-1.04) mg/dL POC Glucose (mg/dL) 154 H 178 H 176 H (75-99) mg/dL Magnesium (1.6-2.3) mg/dL Total Protein (6.3-8.2) g/dL Albumin (3.5-5.0) g/dL 10/06/19 10/06/19 Range/Units 06:53 12:25 WBC (3.8-10.6) k/uL RBC (3.80-5.40) m/uL Hgb (11.4-16.0) gm/dL Hct (34.0-46.0) % MCHC (31.0-37.0) g/dL RDW (11.5-15.5) % Plt Count (150-450) k/uL Neutrophils # (1.3-7.7) k/uL Chloride (98-107) mmol/L BUN (7-17) mg/dL Creatinine (0.52-1.04) mg/dL POC Glucose (mg/dL) 152 H 164 H (75-99) mg/dL Magnesium (1.6-2.3) mg/dL Total Protein (6.3-8.2) g/dL Albumin (3.5-5.0) g/dL Assessment and Plan (1) ARF (acute renal failure) Current Visit: No Status: Acute Code(s): N17.9 - ACUTE KIDNEY FAILURE, UNSPECIFIED SNOMED Code(s): 39632115 (2) CHF exacerbation Current Visit: No Status: Acute Code(s): I50.9 - HEART FAILURE, UNSPECIFIED SNOMED Code(s): 481110571 (3) CKD (chronic kidney disease) Current Visit: No Status: Acute Code(s): N18.9 - CHRONIC KIDNEY DISEASE, UNSPECIFIED SNOMED Code(s): 512315138 Plan: Impression: 1. Cardiac debility. 2. Coronary artery disease with recent single-vessel CABG and history of [place] and angina. 3. Mitral valve disease status post MVR. 4. Hypertension. 5. Diabetes. 6. Dyslipidemia. 7. Sleep apnea. Comments and plan: At this time PT and OT ongoing. Safety concerns noted. Has demonstrated ability tolerate and benefit from therapies. May benefit from inpatient rehab stay. This was discussed with patient and she is agreeable. Should note that Thursday is treated as a holiday.
--- NOTE | 2019-10-06 13:32 | PN ---
PROGRESS NOTE Cony is a 68-year-old lady patient of mine who is admitted to hospital for bypass surgery with REYES to LAD and mitral valve repair. She developed complete heart block after surgery and has been using her pacer wires. She has regained her rhythm. She has mostly been in sinus rhythm and has had episodes of atrial fibrillation. She is currently on IV amiodarone. I do not see any evidence of significant AV block at this time, but we will continue to watch her and if necessary, she may need a pacemaker. She is less confused today. She is trying to ambulate with help. On exam, heart rate is 68 beats per minute. Blood pressure is 110/35, respiratory rate 18. O2 saturation is 97% on 2 L. There is no jugular venous distention. Chest exam reveals diminished air entry at the bases. Heart exam reveals first and second heart sounds. No gallop. No murmur. Abdomen is soft. Exam of extremities did not reveal any edema. Peripheral pulses are felt. Labs showed that the hemoglobin is 7.1, platelet count is 129. ASSESSMENT: 1. Coronary artery disease status post CABG with REYES to LAD. 2. Mitral regurgitation status post mitral valve repair. 3. Postop atrial fibrillation, currently on IV amiodarone. 4. Complete heart block following surgery that has improved. We will continue to monitor her. If she develops significant AV block, or continues to use the pacemaker, then she will need a permanent pacemaker prior to discharge. [id number] / IJN: [id number] /
[2019-10-06 16:57] LABS: Glucose,Whole Blood 196 mg/dL (75-99)
[2019-10-06] MEDS: SENNOSIDES-DOCUSATE SODIUM 1 EACH TAB PO SCH (20:34)
[2019-10-06] MEDS: INSULIN DETEMIR (LEVEMIR) 100 UNIT/ML SYR SQ SCH (20:35)
[2019-10-06] MEDS: METOPROLOL TARTRATE 12.5 MG TAB PO SCH (20:35)
[2019-10-06 20:38] LABS: Glucose,Whole Blood 206 mg/dL (75-99)
[2019-10-07] MEDS: HEPARIN SODIUM,PORCINE 5,000 UNIT/ML 1 ML VIAL SQ SCH ×4 (00:48→23:37)
[2019-10-07] MEDS: ACETAMINOPHEN TAB 500 MG TAB PO PRN (02:49)
[2019-10-07 05:18] LABS: Calcium 8.7 mg/dL (8.4-10.2); Potassium 4.3 mmol/L (3.5-5.1)
[2019-10-07 05:50] LABS: Anisocytosis Slight; HCT 21.9 % (34.0-46.0); Hypochromasia Moderate; MCH 29.4 pg (25.0-35.0); MCHC 31.8 g/dL (31.0-37.0); MCV 92.4 fL (80.0-100.0); Mean Platelet Volume 8.4; Platelet Count 178 k/uL (150-450); RBC 2.37 m/uL (3.80-5.40); RDW 18.3 % (11.5-15.5); WBC 12.4 k/uL (3.8-10.6)
[2019-10-07] MEDS: LEVOTHYROXINE 75 MCG TAB PO SCH (06:53)
[2019-10-07] MEDS ORDERED: FUROSEMIDE 10 MG/ML 4 ML VIAL IV STA (06:58)
[2019-10-07] MEDS: IPRATROPIUM-ALBUTEROL 3 ML NEB INHALATION SCH ×4 (07:16→19:52)
--- NOTE | 2019-10-07 07:52 | P.PN ---
Subjective Progress Note Date: 10/07/19 Principal diagnosis: Single vessel coronary artery disease, severe functional mitral valve regurgitation with mild tricuspid valve regurgitation and heart failure. Past medical history significant for hypertension, coronary artery disease with previous stent placement to her proximal left anterior descending coronary artery in 2017, hyperlipidemia, insulin-dependent diabetes mellitus poorly controlled with a preoperative hemoglobin A1c of 10.7%, morbid obesity, stage III chronic kidney disease with a baseline creatinine of 1.5, obstructive sleep apnea, pulmonary hypertension and preoperative urinary tract infection of Klebsiella pneumoniae which was treated. POD #4 single coronary artery bypass grafting using the left internal mammary artery to left anterior descending coronary artery, mitral valve repair using a reduction annuloplasty with a 28 mm Physio-II ring, exclusion of the left atrial appendage using a 45 mm Atriclip, intraoperative graft flow measurements using the TaxJar sytem, intraoperative epi-aortic scanning and transesophageal echocardiogram. Postoperative acute blood loss anemia, expected outcome secondary to cardiopulmonary bypass and hemodilution. Postoperative paroxysmal controlled atrial fibrillation, unexpected but common occurrence after open heart surgery The patient is currently laying in bed in the intensive care unit in no acute distress. Denies pain, shortness of breath. She is sleepy but arousable this morning, oriented x 3 and following commands. Her heart rate is high 60s-low 70s, afib. Hemodynamically stable. Was evaluated yesterday for IPR secondary to need for strength training. Objective - Vital Signs Vital signs: Vital Signs Temp 98.9 F 10/07/19 04:00 Pulse 64 10/07/19 07:16 Resp 17 10/07/19 06:00 BP 115/62 10/07/19 06:00 Pulse Ox 98 10/07/19 06:00 Intake & Output 10/06/19 10/07/19 10/07/19 18:59 06:59 18:59 Intake Total 1479 220 Output Total 550 0 Balance 929 220 Weight 89.5 kg Intake: IV 264 220 0.9 240 220 pressure bags 24 Oral 1215 Output: Urine 550 0 Other: Voiding Method Bedside Commode Bedside Commode # Voids 1 1 ABP, PAP, CO, CI - Last Documented Arterial Blood Pressure 130/42 Pulmonary Artery Pressure 46/22 Cardiac Output 4.6 Cardiac Index 2.6 - Constitutional General appearance: Present: cooperative, no acute distress, obese - Respiratory Details: Lungs sounds diminished bilaterally with coarse breath sounds in the bases. Respirations even, nonlabored. Currently on 2 L nasal cannula with oxygen saturation 97%. Only able to achieve 500 mL on incentive spirometry, weak effort. Weak cough. - Cardiovascular Details: S1, S2 present. Irregular rate and rhythm, controlled atrial fibrillation on telemetry. Sternum stable. A/V epicardial pacemaker wires present, connected to generator, VVI mode with backup rate 60 bpm. Palpable peripheral pulses bi laterally. No edema present. No calf pain or tenderness noted. Heart hugger in place with patient demonstrating appropriate use. Antiembolism stockings, SCDs present. - Gastrointestinal Gastrointestinal Comment(s): Abdomen soft, nontender, nondistended. Active bowel sounds present 4 quadrants. Tolerating diet. Positive flatus, negative bowel movement. - Genitourinary Genitourinary Comment(s): Patient continues to void. - Integumentary Integumentary Comment(s): Skin is warm and dry with evidence of good perfusion. Anterior chest incision well approximated covered with dry intact dressing. - Neurologic Neurologic: Present: CNII-XII intact - Musculoskeletal Musculoskeletal: Present: generalized weakness, strength equal bilaterally - Psychiatric Psychiatric: Present: A&O x's 3 - Allied health notes Allied health notes reviewed: nursing - Labs CBC & Chem 7: 10/07/19 04:25 10/07/19 04:25 Labs: Abnormal Lab Results - Last 24 Hours (Table) 10/06/19 10/06/19 10/06/19 Range/Units 12:25 16:55 20:37 WBC (3.8-10.6) k/uL RBC (3.80-5.40) m/uL Hgb (11.4-16.0) gm/dL Hct (34.0-46.0) % RDW (11.5-15.5) % Sodium (137-145) mmol/L Carbon Dioxide (22-30) mmol/L BUN (7-17) mg/dL Creatinine (0.52-1.04) mg/dL Glucose (74-99) mg/dL POC Glucose (mg/dL) 164 H 196 H 206 H (75-99) mg/dL 10/07/19 10/07/19 Range/Units 04:25 04:25 WBC 12.4 H (3.8-10.6) k/uL RBC 2.37 L (3.80-5.40) m/uL Hgb 7.0 L (11.4-16.0) gm/dL Hct 21.9 L (34.0-46.0) % RDW 18.3 H (11.5-15.5) % Sodium 134 L (137-145) mmol/L Carbon Dioxide 20 L (22-30) mmol/L BUN 57 H (7-17) mg/dL Creatinine 1.86 H (0.52-1.04) mg/dL Glucose 134 H (74-99) mg/dL POC Glucose (mg/dL) (75-99) mg/dL - Imaging and Cardiology Chest x-ray: image reviewed Assessment and Plan Assessment: 1. Single-vessel coronary artery disease, status post single vessel coronary artery bypass grafting REYES to the left anterior descending coronary artery 2. Severe functional mitral valve regurgitation, status post mitral valve repair using a reduction annuloplasty with a 28 mm physio-II ring 3. Mild tricuspid valve regurgitation 4. Acute on chronic systolic heart failure, with a preoperative ejection fraction of 35-40% 5. History of coronary artery disease with previous stent placement to her left anterior descending coronary artery in 2017 6. Hypertension 7. Dyslipidemia 8. Poorly controlled insulin-dependent diabetes mellitus with a preoperative hemoglobin A1c of 10.7% 8. Ischemic cardiomyopathy 9. Pulmonary hypertension, likely related to valvular disease 10. Stage III chronic kidney disease with a baseline creatinine of 1.5 11. Obstructive sleep apnea 12. Preoperative urinary tract infection of Klebsiella pneumoniae, treated 13. Morbid obesity 14. Postoperative acute blood loss anemia 15. Postoperative third-degree heart block, paroxysmal controlled atrial fibrillation, status post exclusion of the left atrial appendage with 45 mm AtriClip Plan: 1. Continue aspirin, statin, Plavix, low dose beta anaid. 2. Heart rate management per Dr. Kendall. Will start anticoagulation after removal of epicardial pacemaker wires 3. Wean O2 as tolerated. Encourage incentive spirometry 10 times every hour wh ile awake. 4. Bronchodilators per pulmonology management. 5. Increase activity, out of bed for all meals, ambulate minimum 4x daily. PT/OT/cardiac rehab following. 6. Will monitor daily labs and chest x-rays. Electrolyte replacement per protocol. No transfusion. Will give 40 mg IV Lasix 1 today. 7. Pain controlled current medication regimen. Due to the patient's confusion hold opioids. No Toradol secondary to kidney function 8. Insulin management per primary care service. 9. Keep atrial and ventricular epicardial pacemaker wires connected to generator with backup rate 50 bpm. 10. Discharge planning in progress. Discharge to home with home care vs. IPR in the next few days, dependent on heart rate/rhythm control and whether or not pacemaker is necessary, and patient's need for inpatient vs. outpatient physical therapy 11. More recommendations to follow based on patient's clinical course. Time with Patient: Greater than 30
[2019-10-07 08:22] LABS: Glucose,Whole Blood 111 mg/dL (75-99)
[2019-10-07] MEDS: ATORVASTATIN 40 MG TAB PO SCH (08:41)
[2019-10-07] MEDS: ASPIRIN 325 MG TAB PO SCH (08:41)
[2019-10-07] MEDS: PANTOPRAZOLE 40 MG TABLET PO SCH (08:41)
[2019-10-07] MEDS: CLOPIDOGREL 75 MG TAB PO SCH (08:41)
[2019-10-07] MEDS: FERROUS SULFATE 325 MG TAB PO SCH ×2 (08:41→16:58)
[2019-10-07] MEDS: CITALOPRAM HYDROBROMIDE 20 MG TAB PO SCH (08:42)
[2019-10-07] MEDS: METOPROLOL TARTRATE 12.5 MG TAB PO SCH ×2 (08:42→20:25)
[2019-10-07] MEDS: INSULIN ASPART (NovoLOG) 100 UNIT/ML VIAL SQ SCH ×6 (08:43→20:24)
--- NOTE | 2019-10-07 08:56 | XR ---
EXAMINATION TYPE: XR chest 1V portable DATE OF EXAM: 10/07/2019 COMPARISON: 10/06/2019 HISTORY: Postop TECHNIQUE: Single frontal view of the chest is obtained. FINDINGS: Postsurgical changes seen with bilateral areas of subsegmental consolidation and small eff usion greater on the left. No sizable pneumothorax. Heart is enlarged. Linear density seen in the epi gastric region may be related to a lead. IMPRESSION: Bilateral consolidation and small effusion. Stable in appearance. Postoperative changes.
[2019-10-07] MEDS: INSULIN DETEMIR (LEVEMIR) 100 UNIT/ML SYR SQ SCH ×2 (09:00→20:24)
[2019-10-07] MEDS: allopurinoL 300 MG TAB PO SCH (09:01)
--- NOTE | 2019-10-07 09:07 | P.PN ---
Subjective This is a pleasant 68 years old female with past medical history of coronary artery disease, heart failure status post stent placement, diabetes mellitus, GERD, hypertension, hyperlipidemia, sleep apnea on CPAP/BiPAP, hypothyroidism. She is a status post 1 vessel bypass surgery and today postop day #1. She also got extubated today and currently she is on nasal cannula at 4 L/m was saturating 95-98%, patient denies chest pain or dyspnea except as surgical site which is expected. Rest of Vitas looks stable. Labs reviewed showed mild leukocytosis of 12 K, INR is normal, sugar controlled, creatinine 1.9 (baseline 1.4-2.0) Chest x-ray: Improved radiation Patient is currently on aspirin, metoprolol, oral levothyroxine, Protonix 10/05/2019 Patient remains in the ICU with no chest pain or dyspnea. However today her blood pressure dropped with physical therapy session went down to 80/40, patient brought back on lying position in the chair, she was fully awake and oriented however she looked pale with no chest pain or dyspnea. Recheck blood pressure show improvement, please see records. Progressive vitals are stable. Sugar controlled 141-152 today her chest tube and swelling Came out 10/06/2019 Patient is awake and alert, looks tired but she denies chest pain or dyspnea and vitals are stable. Sugar controlled and WBC is trending down to 11.6 K. Creatinine down to 1.7. Patient was on insulin drip which could be stopped, patient is eating. Resume her Levemir 15 units twice a day (was 22 units at home) and 3 units with meals (was 6 units at home), keep insulin sliding scale. Cardiology team also following the case today. 10/07/2019 Patient is up in chair, no dizziness, blood pressure is a stable at 117/66. No postural symptoms. She was sitting and eating in bed with no difficulty. She still have some pain in the surgical site which is expected. Mild Leukocytosis of 12.4 K. Creatinine 1.8 him at baseline. Sugar control, continue with same regimen Objective - Vital Signs Vital signs: Vital Signs Temp 98.9 F 10/07/19 04:00 Pulse 60 10/07/19 07:26 Resp 15 10/07/19 07:00 BP 117/66 10/07/19 07:00 Pulse Ox 97 10/07/19 07:00 Intake & Output 10/06/19 10/07/19 10/07/19 18:59 06:59 18:59 Intake Total 1479 220 20 Output Total 550 660 Balance 929 -440 20 Weight 89.5 kg Intake: IV 264 220 20 0.9 240 220 20 pressure bags 24 Oral 1215 Output: Urine 550 660 Other: Voiding Method Bedside Commode Bedside Commode # Voids 1 0 ABP, PAP, CO, CI - Last Documented Arterial Blood Pressure 130/42 Pulmonary Artery Pressure 46/22 Cardiac Output 4.6 Cardiac Index 2.6 - Exam GENERAL: The patient is alert and oriented x3, not in any acute distress. Well developed, well nourished. HEENT: Pupils are round and equally reacting to light. EOMI. No scleral icterus. No conjunctival pallor. Normocephalic, atraumatic. No pharyngeal erythema. No thyromegaly. -CARDIOVASCULAR: S1 and S2 present. No murmurs, rubs, or gallops. Sternal wound is in a dressing PULMONARY: Chest is clear to auscultation, no wheezing or crackles. ABDOMEN: Soft, nontender, nondistended, normoactive bowel sounds. No palpable organomegaly. MUSCULOSKELETAL: No joint swelling or deformity. EXTREMITIES: No cyanosis, clubbing, or pedal edema. NEUROLOGICAL: Gross neurological examination did not reveal any focal deficits. SKIN: No rashes. No petechiae - Labs CBC & Chem 7: 10/07/19 04:25 10/07/19 04:25 Labs: Abnormal Lab Results - Last 24 Hours (Table) 10/06/19 10/06/19 10/06/19 Range/Units 12:25 16:55 20:37 WBC (3.8-10.6) k/uL RBC (3.80-5.40) m/uL Hgb (11.4-16.0) gm/dL Hct (34.0-46.0) % RDW (11.5-15.5) % Sodium (137-145) mmol/L Carbon Dioxide (22-30) mmol/L BUN (7-17) mg/dL Creatinine (0.52-1.04) mg/dL Glucose (74-99) mg/dL POC Glucose (mg/dL) 164 H 196 H 206 H (75-99) mg/dL 10/07/19 10/07/19 10/07/19 Range/Units 04:25 04:25 08:21 WBC 12.4 H (3.8-10.6) k/uL RBC 2.37 L (3.80-5.40) m/uL Hgb 7.0 L (11.4-16.0) gm/dL Hct 21.9 L (34.0-46.0) % RDW 18.3 H (11.5-15.5) % Sodium 134 L (137-145) mmol/L Carbon Dioxide 20 L (22-30) mmol/L BUN 57 H (7-17) mg/dL Creatinine 1.86 H (0.52-1.04) mg/dL Glucose 134 H (74-99) mg/dL POC Glucose (mg/dL) 111 H (75-99) mg/dL Assessment and Plan Assessment: coronary artery disease, status post 1 vessel bypass surgery Hypertension Diabetes mellitus Hyperlipidemia chronic kidney disease, stage III History of coronary artery disease, status post stent placement GERD Current systolic cardiac failure, EF 35-40% Severe mitral regurgitation, severe tricuspid regurgitation Severe pulmonary hypertension Hypothyroidism Sleep apnea on CPAP/BiPAP chronic Plan: This is a pleasant 68 years old female who was admitted for cardiac bypass surgery and valve repair, continue with aspirin, metoprolol and levothyroxine. Resume insulin and monitor sugar. Labs and medication were reviewed.. Continue same treatment. Continue with symptomatic treatment. Resume home medication. Monitor lytes and vitals. DVT and GI prophylaxis. Further recommendations of the clinical course of the patient DVT prophylaxis: Subcutaneous heparin GI Prophylaxis: Ppi Prognosis is guarded Thank you for consulting us
--- NOTE | 2019-10-07 09:11 | P.PN ---
Subjective Progress Note Date: 10/07/19 This is a 68-year-old female with history of single-vessel coronary artery disease and mitral regurgitation, status post bypass surgery and mitral valve repair. Patient also has underlying atrial fibrillation with left bundle-branch block pattern. Patient developed bradycardia after she was treated with IV amiodarone. Patient is off amiodarone at this time. She is a small dose of beta anaid. Her heart rate is controlled without any significant bradyarrhythmias. Patient is sitting up in the chair and seems to be stable. Complain some mild chest pain but no shortness of breath. Lungs show some diminished breath sounds at bases and few rhonchi. Heart is irregular. Overall patient's critical status seemed to be stable. We'll continue current medical therapy. Increase activity and possible transfer to telemetry unit. Continue monitoring for any significant bradyarrhythmias Objective - Vital Signs Vital signs: Vital Signs Temp 98.9 F 10/07/19 04:00 Pulse 60 10/07/19 07:26 Resp 15 10/07/19 07:00 BP 117/66 10/07/19 07:00 Pulse Ox 97 10/07/19 07:00 Intake & Output 10/06/19 10/07/19 10/07/19 18:59 06:59 18:59 Intake Total 1479 220 20 Output Total 550 660 Balance 929 -440 20 Weight 89.5 kg Intake: IV 264 220 20 0.9 240 220 20 pressure bags 24 Oral 1215 Output: Urine 550 660 Other: Voiding Method Bedside Commode Bedside Commode # Voids 1 0 ABP, PAP, CO, CI - Last Documented Arterial Blood Pressure 130/42 Pulmonary Artery Pressure 46/22 Cardiac Output 4.6 Cardiac Index 2.6 - Exam GENERAL EXAM: Patient is alert and oriented and doesn't appear to be in any acute distress HEENT: Normocephalic. Normal reaction of pupils, equal size, normal range of extraocular motion. No erythema or exudates in the throat. NECK: No masses, no nuchal rigidity. CHEST: No chest wall deformity. LUNGS: Diminished breath sounds at bases HEART: S1 and S2 normal. Irregular rhythm.. ABDOMEN: No hepatosplenomegaly, normal bowel sounds, no guarding or rigidity. SKIN: No rashes CENTRAL NERVOUS SYSTEM: No focal deficits. EXTREMITIES: No cyanosis, clubbing or edema. - Labs CBC & Chem 7: 10/07/19 04:25 10/07/19 04:25 Labs: Abnormal Lab Results - Last 24 Hours (Table) 10/06/19 10/06/19 10/06/19 Range/Units 12:25 16:55 20:37 WBC (3.8-10.6) k/uL RBC (3.80-5.40) m/uL Hgb (11.4-16.0) gm/dL Hct (34.0-46.0) % RDW (11.5-15.5) % Sodium (137-145) mmol/L Carbon Dioxide (22-30) mmol/L BUN (7-17) mg/dL Creatinine (0.52-1.04) mg/dL Glucose (74-99) mg/dL POC Glucose (mg/dL) 164 H 196 H 206 H (75-99) mg/dL 10/07/19 10/07/19 10/07/19 Range/Units 04:25 04:25 08:21 WBC 12.4 H (3.8-10.6) k/uL RBC 2.37 L (3.80-5.40) m/uL Hgb 7.0 L (11.4-16.0) gm/dL Hct 21.9 L (34.0-46.0) % RDW 18.3 H (11.5-15.5) % Sodium 134 L (137-145) mmol/L Carbon Dioxide 20 L (22-30) mmol/L BUN 57 H (7-17) mg/dL Creatinine 1.86 H (0.52-1.04) mg/dL Glucose 134 H (74-99) mg/dL POC Glucose (mg/dL) 111 H (75-99) mg/dL Assessment and Plan (1) Status post aorto-coronary artery bypass graft Current Visit: Yes Status: Acute Code(s): Z95.1 - PRESENCE OF AORTOCORONARY BYPASS GRAFT SNOMED Code(s): 066535134 (2) Status post mitral valve repair Current Visit: Yes Status: Acute Code(s): Z98.890 - OTHER SPECIFIED POSTPROCEDURAL STATES SNOMED Code(s): 669460794 (3) Left bundle branch block Current Visit: Yes Status: Acute Code(s): I44.7 - LEFT BUNDLE-BRANCH BLOCK, UNSPECIFIED SNOMED Code(s): 49364968 (4) Atrial fibrillation Current Visit: Yes Status: Acute Code(s): I48.91 - UNSPECIFIED ATRIAL FIBRILLATION SNOMED Code(s): 89650843 (5) Bradycardia Current Visit: Yes Status: Acute Code(s): R00.1 - BRADYCARDIA, UNSPECIFIED SNOMED Code(s): 04619049 Plan: Continue current medical therapy. Continue incentive spirometry. Possible transfer to telemetry unit. Increase activity as tolerated
--- NOTE | 2019-10-07 11:10 | P.PN ---
Subjective Progress Note Date: 10/07/19 Principal diagnosis: Status post CABG, MVR. Postoperative day #4 68-year-old of Dr. Moore, with past medical history of coronary artery disease with previous stenting of the LAD in 2017, hypertension, hyperlipidemia, insulin-dependent diabetes mellitus, morbid obesity, stage III chronic kidney disease, pulmonary hypertension, family history of hypertension and diabetes. Patient was hospitalized last November 2018 when she presented with complaints of severe, constant, sharp chest pain with left arm radiation. Patient had echocardiogram that showed a moderately impaired LV function with EF of 35-40%, mild aortic regurgitation, mild mitral annular calcification and moderate to severe mitral regurgitation. There was evidence of severe pulmonary hypertension and moderate tricuspid regurg. Patient went on to have cardiac catheterization that showed LAD stenosis of 70% in the proximal portion. YULIANA showed EF of 35-40%, severe mitral regurgitation, with a dilated annulus and poor coaptation of the mitral leaflets and moderate to severe tricuspid regurgitation. She was referred to CT surgery for surgical evaluation, and it took her several months to obtain dental clearance, and optimize her diabetes. Today on 10/03/2019 patient had a one-vessel bypass with REYES to LAD, and mitral valve repair, his occlusion of the left atrial appendage. She is seen in the po stoperative period in the intensive care unit, she is intubated, sedated on mechanical ventilator, current vent settings assist control mode with a rate of 16, tidal vital 350, FiO2 50% and PEEP of 8. Current drips include 0.9 normal saline at a rate of 50, Primacor at 0.3 mics per kilo per minute, levo fed at 0.04 mics per kilo per minute, insulin drip, and Diprivan at 20 mics per kilo per minute. PA pressure is 48/27, CVP 13, cardiac output and index are 4.6 and 2.6 respectively, AV wires in place, patient is on VVI Mode and is currently pacing at 100%. 2 mediastinal chest tubes with 130 mL of sanguinous output, left pleural and right pleural with 120 and 50 ML of sanguinous output resp ectively. Postop blood work shows a white blood cell count of 12.3, hemoglobin of 8.7, sodium is 136, the rest of electrolytes are within normal limits, BUN 62 and creatinine is 1.74. Patient was reevaluated today on 10/04/19, patient was extubated around 4 AM this morning. He tolerated the extubation quite well. Presently on IV fluid at 50 mL per hour. Patient has intermittent episodes of confusion. Remains on Primacor at 0. one 5 mcg/kg/m. Patient is paced with VVI pacemaker at 50 bpm. Her cardiac index is 2.8, cardiac output is 5 CVP is 10. Chest x-ray showed minimal atelectasis at the bases. Patient had REYES to LAD, mitral valve repair and she again she is postoperative day #1. Patient is on 6 L high flow nasal cannula. O2 saturations 98%. Achieving 500 mL on her incentive spirometer. She has noted some surgical type of pain at the side of her chest tube insertion, and mostly when taking a deep breath. Denies shortness of breath. Mediastinal right and left pleural chest tubes remain in place. On continuous wall suction. No air leak. Draining thin serosanguineous drainage with the 130 mL output in the last 8 hours and 300 mL output since surgery from the media stinal chest tubes. Patient was reevaluated today on 10/05/19, patient remains sitting in bed, doing well, no specific complaints. She is oriented [address] mostly [address] and place. Not oriented to time. Denies any complaints, she has some vague chest pain upon taking a deep breath. She is hemodynamically stable, not requiring any pressors. Her cardiac index is 2.6, cardiac output is 4.6. CVP is 14. Chest x-ray showed minimal atelectasis at the bases especially at the left base. Patient remains on 4 L nasal cannula, and O2 saturations 96%. She is achieving about 500 MLS her incentive spirometer. Her mediastinal left and right pleural chest tubes remained in place, no air leak noted. Drainage was noted, amount is becoming less and less over the last 2 days. She had a T-max of 99.7. Otherwise the patient is doing great. She does seem to be globally weak Patient was reevaluated today on 10/06/19, remains in the ICU, patient is sitting in a recliner. Denies any shortness of breath, no cough no wheezing, presently she has sinus rhythm and a second-degree AV block, hemodynamically stable, not requiring any pressors and at night she went into controlled atrial fibrillation. Placed on amiodarone and she remains on protocol this morning. Dr. Tavarez was consulted regarding her arrhythmia. He is recommending switching patient to oral amiodarone. Low-dose beta blockers and possibly eventually placed the patient back on her Coreg twice a day. No plans at least at this point to place a permanent pacer. He will assess the patient on outpatient basis chest x-ray today showed mostly left basilar atelectasis. Reevaluated today on 11/03/19, patient is doing quite well. Remains in the ICU, in no distress, denies any shortness of breath or pain. Heart rate is in the low 60s and 70s, patient is in atrial fibrillation. Hemodynamically stable. And she is doing better with incentive spirometry. Chest x-ray continues to show minimal left basilar atelectasis. Objective - Vital Signs Vital signs: Vital Signs Temp 97.6 F 10/07/19 08:00 Pulse 72 10/07/19 10:15 Resp 22 10/07/19 10:15 BP 104/56 10/07/19 10:15 Pulse Ox 98 10/07/19 10:15 Intake & Output 10/06/19 10/07/19 10/07/19 18:59 06:59 18:59 Intake Total 1479 220 20 Output Total 550 660 175 Balance 929 -440 -155 Weight 89.5 kg Intake: IV 264 220 20 0.9 240 220 20 pressure bags 24 Oral 1215 Output: Urine 550 660 175 Other: Voiding Method Bedside Commode Bedside Commode # Voids 1 0 0 ABP, PAP, CO, CI - Last Documented Arterial Blood Pressure 130/42 Pulmonary Artery Pressure 46/22 Cardiac Output 4.6 Cardiac Index 2.6 - Exam GENERAL EXAM: Revealed 68-year-old female in no distress. On 2 L nasal cannula. O2 saturation is 96% Head: Atraumatic, normocephalic. HEENT: PERRLA, EOMI, no icterus, no neck masses, no JVD. CHEST: No chest wall deformity. Diminished breath sounds at the bases no crackles or rhonchi and wheezes. CVS: Regular rate and rhythm, normal S1 and S2, no gallops, no murmurs, no rubs ABDOMEN: Soft, nontender. No hepatosplenomegaly, normal bowel sounds, no guarding or rigidity. EXTREMITIES: No clubbing, no edema, no cyanosis, 2+ pulses and upper and lower extremities. MUSCULOSKELETAL: Muscle strength and tone normal. SPINE: No scoliosis or deformity SKIN: No rashes CENTRAL NERVOUS SYSTEM: Alert and oriented 2, not oriented to time. - Labs CBC & Chem 7: 10/07/19 04:25 10/07/19 04:25 Labs: Abnormal Lab Results - Last 24 Hours (Table) 10/06/19 10/06/19 10/06/19 Range/Units 12:25 16:55 20:37 WBC (3.8-10.6) k/uL RBC (3.80-5.40) m/uL Hgb (11.4-16.0) gm/dL Hct (34.0-46.0) % RDW (11.5-15.5) % Sodium (137-145) mmol/L Carbon Dioxide (22-30) mmol/L BUN (7-17) mg/dL Creatinine (0.52-1.04) mg/dL Glucose (74-99) mg/dL POC Glucose (mg/dL) 164 H 196 H 206 H (75-99) mg/dL 10/07/19 10/07/19 10/07/19 Range/Units 04:25 04:25 08:21 WBC 12.4 H (3.8-10.6) k/uL RBC 2.37 L (3.80-5.40) m/uL Hgb 7.0 L (11.4-16.0) gm/dL Hct 21.9 L (34.0-46.0) % RDW 18.3 H (11.5-15.5) % Sodium 134 L (137-145) mmol/L Carbon Dioxide 20 L (22-30) mmol/L BUN 57 H (7-17) mg/dL Creatinine 1.86 H (0.52-1.04) mg/dL Glucose 134 H (74-99) mg/dL POC Glucose (mg/dL) 111 H (75-99) mg/dL Assessment and Plan Assessment: Impression: Status post 1 vessel bypass, REYES to LAD and mitral valve repair postoperative day #4 Acute blood loss anemia, outcome of bypass surgery, this is expected. Acute on chronic congestive heart failure, systolic in nature. History of chronic kidney disease. Obstructive sleep apnea syndrome. Morbid obesity. Postoperative cardiac arrhythmia, presently in atrial fibrillation. History of diabetes, poorly controlled, patient is on insulin drip. Benign essential hypertension. Postoperative atelectasis, expected after surgery Previous stenting of LAD. Ischemic cardiomyopathy and LV dysfunction with ejection fraction of 35%. Pulmonary hypertension related to valvular heart disease. Recommendation: Continue incentive spirometry. Continue low-dose beta blockers Plavix and statins. Continue to wean oxygen as tolerated. Continue bronchodilators. Continue ambulation. Continue insulin for diabetes management. Continue pain control management. Possible discharge planning in the next 24 hours We will continue to follow. Time with Patient: Less than 30
[2019-10-07 12:05] LABS: Glucose,Whole Blood 179 mg/dL (75-99)
[2019-10-07 16:56] LABS: Glucose,Whole Blood 157 mg/dL (75-99)
[2019-10-07 20:22] LABS: Glucose,Whole Blood 203 mg/dL (75-99)
[2019-10-07] MEDS: SENNOSIDES-DOCUSATE SODIUM 1 EACH TAB PO SCH (20:25)
[2019-10-08 05:27] LABS: Anisocytosis Slight; HCT 21.6 % (34.0-46.0); Hypochromasia Slight; MCH 29.5 pg (25.0-35.0); MCHC 32.4 g/dL (31.0-37.0); MCV 91.1 fL (80.0-100.0); Mean Platelet Volume 8.3; Platelet Count 210 k/uL (150-450); RBC 2.38 m/uL (3.80-5.40); RDW 18.6 % (11.5-15.5); WBC 11.4 k/uL (3.8-10.6)
[2019-10-08 05:55] LABS: Calcium 8.9 mg/dL (8.4-10.2); Magnesium 2.5 mg/dL (1.6-2.3); Potassium 4.3 mmol/L (3.5-5.1)
[2019-10-08 07:10] LABS: Glucose,Whole Blood 144 mg/dL (75-99)
[2019-10-08] MEDS: LEVOTHYROXINE 75 MCG TAB PO SCH (07:12)
[2019-10-08] MEDS: INSULIN ASPART (NovoLOG) 100 UNIT/ML VIAL SQ SCH ×6 (07:12→20:51)
[2019-10-08] MEDS: INSULIN DETEMIR (LEVEMIR) 100 UNIT/ML SYR SQ SCH ×2 (07:12→20:48)
[2019-10-08] MEDS: METOPROLOL TARTRATE 12.5 MG TAB PO SCH ×2 (07:12→20:47)
[2019-10-08] MEDS: PANTOPRAZOLE 40 MG TABLET PO SCH (07:12)
[2019-10-08] MEDS: FERROUS SULFATE 325 MG TAB PO SCH ×2 (07:12→16:42)
[2019-10-08] MEDS: IPRATROPIUM-ALBUTEROL 3 ML NEB INHALATION SCH ×4 (08:41→20:21)
[2019-10-08] MEDS ORDERED: FUROSEMIDE 10 MG/ML 4 ML VIAL IV STA (08:54)
--- NOTE | 2019-10-08 09:12 | XR ---
EXAMINATION TYPE: XR chest 2V DATE OF EXAM: 10/08/2019 COMPARISON: 10/07/2019 INDICATION: Post cardiac surgery TECHNIQUE: Frontal and lateral views of the chest are obtained. FINDINGS: The heart size is prominent a post cardiac valve surgery is evident. CABG has been performed.. The pulmonary vasculature is normal. The lungs are clear. IMPRESSION: 1. Cardiomegaly. 2. No acute pulmonary process. Left lower lobe infiltrate appears resolved.
[2019-10-08] MEDS: CITALOPRAM HYDROBROMIDE 20 MG TAB PO SCH (09:26)
[2019-10-08] MEDS: HEPARIN SODIUM,PORCINE 5,000 UNIT/ML 1 ML VIAL SQ SCH ×2 (09:26→16:42)
[2019-10-08] MEDS: allopurinoL 300 MG TAB PO SCH (09:26)
[2019-10-08] MEDS: CLOPIDOGREL 75 MG TAB PO SCH (09:26)
[2019-10-08] MEDS ORDERED: polyethylene glycoL 3350 17 GM POWD.PACK PO PRN (09:26)
[2019-10-08] MEDS: ASPIRIN 325 MG TAB PO SCH (09:26)
[2019-10-08] MEDS: ATORVASTATIN 40 MG TAB PO SCH (09:26)
--- NOTE | 2019-10-08 09:27 | P.PN ---
Subjective This is a pleasant 68 years old female with past medical history of coronary artery disease, heart failure status post stent placement, diabetes mellitus, GERD, hypertension, hyperlipidemia, sleep apnea on CPAP/BiPAP, hypothyroidism. She is a status post 1 vessel bypass surgery and today postop day #1. She also got extubated today and currently she is on nasal cannula at 4 L/m was saturating 95-98%, patient denies chest pain or dyspnea except as surgical site which is expected. Rest of Vitas looks stable. Labs reviewed showed mild leukocytosis of 12 K, INR is normal, sugar controlled, creatinine 1.9 (baseline 1.4-2.0) Chest x-ray: Improved radiation Patient is currently on aspirin, metoprolol, oral levothyroxine, Protonix 10/05/2019 Patient remains in the ICU with no chest pain or dyspnea. However today her blood pressure dropped with physical therapy session went down to 80/40, patient brought back on lying position in the chair, she was fully awake and oriented however she looked pale with no chest pain or dyspnea. Recheck blood pressure show improvement, please see records. Progressive vitals are stable. Sugar controlled 141-152 today her chest tube and swelling Came out 10/06/2019 Patient is awake and alert, looks tired but she denies chest pain or dyspnea and vitals are stable. Sugar controlled and WBC is trending down to 11.6 K. Creatinine down to 1.7. Patient was on insulin drip which could be stopped, patient is eating. Resume her Levemir 15 units twice a day (was 22 units at home) and 3 units with meals (was 6 units at home), keep insulin sliding scale. Cardiology team also following the case today. 10/07/2019 Patient is up in chair, no dizziness, blood pressure is a stable at 117/66. No postural symptoms. She was sitting and eating in bed with no difficulty. She still have some pain in the surgical site which is expected. Mild Leukocytosis of 12.4 K. Creatinine 1.8 him at baseline. Sugar control, continue with same regimen 10/08/19 Patient is in chair, no chest pain, no dizziness. Breathing quietly. Vitas looks stable and blood pressure 109/63, heart rate is 77 beats per minute which is sinus. She is eating well and tolerating that well however she has constipation and ask for some laxative WBC is 11.4 K,, creatinine at baseline 1.7 Dr. Coppola evaluated patient for possible inpatient rehab, patient agrees Patient may be considered for transfer to general medical floor Objective - Vital Signs Vital signs: Vital Signs Temp 97.9 F 10/08/19 08:00 Pulse 77 10/08/19 08:52 Resp 17 10/08/19 08:00 BP 109/63 10/08/19 08:00 Pulse Ox 92 L 10/08/19 08:00 Intake & Output 10/07/19 10/08/19 10/08/19 18:59 06:59 18:59 Intake Total 20 0 Output Total 825 400 200 Balance -805 -400 -200 Weight 90.9 kg Intake: IV 20 0 0.9 20 0 Output: Urine 825 400 200 Other: Voiding Method Bedside Commode Bedside Commode Bedside Commode # Voids 0 0 0 ABP, PAP, CO, CI - Last Documented Arterial Blood Pressure 130/42 Pulmonary Artery Pressure 46/22 Cardiac Output 4.6 Cardiac Index 2.6 - Exam GENERAL: The patient is alert and oriented x3, not in any acute distress. Well developed, well nourished. HEENT: Pupils are round and equally reacting to light. EOMI. No scleral icterus. No conjunctival pallor. Normocephalic, atraumatic. No pharyngeal erythema. No thyromegaly. -CARDIOVASCULAR: S1 and S2 present. No murmurs, rubs, or gallops. Sternal wound is in a dressing PULMONARY: Chest is clear to auscultation, no wheezing or crackles. ABDOMEN: Soft, nontender, nondistended, normoactive bowel sounds. No palpable organomegaly. MUSCULOSKELETAL: No joint swelling or deformity. EXTREMITIES: No cyanosis, clubbing, or pedal edema. NEUROLOGICAL: Gross neurological examination did not reveal any focal deficits. SKIN: No rashes. No petechiae - Labs CBC & Chem 7: 10/08/19 05:07 10/08/19 05:07 Labs: Abnormal Lab Results - Last 24 Hours (Table) 10/07/19 10/07/19 10/07/19 Range/Units 12:03 16:54 20:20 WBC (3.8-10.6) k/uL RBC (3.80-5.40) m/uL Hgb (11.4-16.0) gm/dL Hct (34.0-46.0) % RDW (11.5-15.5) % Sodium (137-145) mmol/L BUN (7-17) mg/dL Creatinine (0.52-1.04) mg/dL Glucose (74-99) mg/dL POC Glucose (mg/dL) 179 H 157 H 203 H (75-99) mg/dL Magnesium (1.6-2.3) mg/dL 10/08/19 10/08/19 10/08/19 Range/Units 05:07 05:07 07:08 WBC 11.4 H (3.8-10.6) k/uL RBC 2.38 L (3.80-5.40) m/uL Hgb 7.0 L (11.4-16.0) gm/dL Hct 21.6 L (34.0-46.0) % RDW 18.6 H (11.5-15.5) % Sodium 134 L (137-145) mmol/L BUN 58 H (7-17) mg/dL Creatinine 1.72 H (0.52-1.04) mg/dL Glucose 129 H (74-99) mg/dL POC Glucose (mg/dL) 144 H (75-99) mg/dL Magnesium 2.5 H (1.6-2.3) mg/dL Assessment and Plan Assessment: coronary artery disease, status post 1 vessel bypass surgery Hypertension Diabetes mellitus Hyperlipidemia chronic kidney disease, stage III History of coronary artery disease, status post stent placement GERD Current systolic cardiac failure, EF 35-40% Severe mitral regurgitation, severe tricuspid regurgitation Severe pulmonary hypertension Hypothyroidism Sleep apnea on CPAP/BiPAP chronic Plan: This is a pleasant 68 years old female who was admitted for cardiac bypass surgery and valve repair, continue with aspirin, metoprolol and levothyroxine. Resume insulin and monitor sugar. Labs and medication were reviewed.. Continue same treatment. Continue with symptomatic treatment. Resume home medication. Monitor lytes and vitals. DVT and GI prophylaxis. Further recommendations of the clinical course of the patient DVT prophylaxis: Subcutaneous heparin GI Prophylaxis: Ppi Prognosis is guarded Thank you for consulting us
--- NOTE | 2019-10-08 09:46 | P.PN ---
Subjective Progress Note Date: 10/08/19 Principal diagnosis: Single vessel coronary artery disease, severe functional mitral valve regurgitation with mild tricuspid valve regurgitation and heart failure. Past medical history significant for hypertension, coronary artery disease with previous stent placement to her proximal left anterior descending coronary artery in 2017, hyperlipidemia, insulin-dependent diabetes mellitus poorly controlled with a preoperative hemoglobin A1c of 10.7%, morbid obesity, stage III chronic kidney disease with a baseline creatinine of 1.5, obstructive sleep apnea, pulmonary hypertension and preoperative urinary tract infection of Klebsiella pneumoniae which was treated. POD #5 single coronary artery bypass grafting using the left internal mammary artery to left anterior descending coronary artery, mitral valve repair using a reduction annuloplasty with a 28 mm physio-II ring, exclusion of the left atrial appendage using a 45 mm Atriclip, intraoperative graft flow measurements using the PrePay sytem, intraoperative epi-aortic scanning and transesophageal echocardiogram. Postoperative acute blood loss anemia, an expected outcome secondary to cardiopulmonary bypass and hemodilution. Postoperative third-degree heart block, an unexpected but potential outcome of surgery. Postoperative paroxysmal atrial fibrillation, an unexpected but potential outcome of surgery. The patient was seen today 10/08/2019 at her bedside in the intensive care unit. She is currently sitting up to the bedside chair, is awake, alert and oriented 3. She is in no acute distress, and is hemodynamically stable on no inotropic or pressor support. Currently denies any complaints of pain or shortness of breath. Her night club manager nurse reports that she ambulated in the hallway this morning with minimal assistance from nursing staff and converted to atrial fibrillation with controlled rate at around 6 AM this morning. The bedside monitor showing atrial fibrillation heart rate 70 bpm. Atrial and ventricular epicardial pacemaker wires remain in place to backup bedside pacemaker generator with a VVI 50. Oxygen saturations are 94% on room air, and she is achieving 750 mL on her incentive spirometry with encouragement. Objective - Vital Signs Vital signs: Vital Signs Temp 97.6 F 10/08/19 04:00 Pulse 87 10/08/19 07:00 Resp 11 L 10/08/19 07:00 BP 112/64 10/08/19 07:00 Pulse Ox 99 10/08/19 07:00 Intake & Output 10/07/19 10/08/19 10/08/19 18:59 06:59 18:59 Intake Total 20 Output Total 825 400 0 Balance -805 -400 0 Weight 90.9 kg Intake: IV 20 0.9 20 Output: Urine 825 400 0 Other: Voiding Method Bedside Commode Bedside Commode # Voids 0 0 0 ABP, PAP, CO, CI - Last Documented Arterial Blood Pressure 130/42 Pulmonary Artery Pressure 46/22 Cardiac Output 4.6 Cardiac Index 2.6 - Exam This is a pleasant 68-year-old female patient who is sitting up to the bedside chair in the intensive care unit. She is in no apparent acute distress, she is awake, alert and oriented 3. Oxygen saturation are 94 % on room air. - Constitutional General appearance: Present: cooperative, morbidly obese, no acute distress - EENT Eyes: Absent: scleral icterus - Neck Details: Neck is supple, no JVD. - Respiratory Details: Lung sounds are essentially clear to her bilateral upper lobes, diminished bilateral bases. Respirations are symmetrical and nonlabored. No wheezes, crackles or rhonchi. Oxygen saturation is 94% on room air and she is achieving 750 mL on her incentive spirometry with much encouragement. - Cardiovascular Details: Irregular rhythm with controlled rate. S1 and S2 present, negative for S3, gallop or murmur. Sternum is stable. Bedside telemetry showing atrial fibrillation with controlled rate are rate 70 ppm. Atrial and ventricular epicardial pacemaker wires are present and connected to the bedside backup pacemaker generator with a VVI of 50 BPM. No edema present. Knee-high KARTHIKEYAN hose and sequential compression devices in place to her bilateral lower extremities. Heart hugger is in place and she is demonstrating appropriate use with encouragement. - Gastrointestinal Gastrointestinal Comment(s): Abdomen is soft, nontender and nondistended. Active bowel sounds present L4 abdominal quadrants. No guarding or rigidity. Tolerating oral intake. - Genitourinary Genitourinary Comment(s): Patient voiding clear christine urine. 300 mL output in the last 8 hours. - Integumentary Integumentary Comment(s): Skin is warm and dry. No clubbing or cyanosis is present. Midline sternal incision is clean, dry and approximated. No drainage or redness is present. Gauze dressing is clean, dry and in place. - Neurologic Neurologic: Present: CNII-XII intact - Musculoskeletal Musculoskeletal: Present: gait normal, generalized weakness, strength equal daniel aterally - Psychiatric Psychiatric Comment(s): Flat affect Psychiatric: Present: A&O x's 3, intact judgment & insight - Allied health notes Allied health notes reviewed: nursing - Labs CBC & Chem 7: 10/08/19 05:07 10/08/19 05:07 Labs: Abnormal Lab Results - Last 24 Hours (Table) 10/07/19 10/07/19 10/07/19 Range/Units 08:21 12:03 16:54 WBC (3.8-10.6) k/uL RBC (3.80-5.40) m/uL Hgb (11.4-16.0) gm/dL Hct (34.0-46.0) % RDW (11.5-15.5) % Sodium (137-145) mmol/L BUN (7-17) mg/dL Creatinine (0.52-1.04) mg/dL Glucose (74-99) mg/dL POC Glucose (mg/dL) 111 H 179 H 157 H (75-99) mg/dL Magnesium (1.6-2.3) mg/dL 10/07/19 10/08/19 10/08/19 Range/Units 20:20 05:07 05:07 WBC 11.4 H (3.8-10.6) k/uL RBC 2.38 L (3.80-5.40) m/uL Hgb 7.0 L (11.4-16.0) gm/dL Hct 21.6 L (34.0-46.0) % RDW 18.6 H (11.5-15.5) % Sodium 134 L (137-145) mmol/L BUN 58 H (7-17) mg/dL Creatinine 1.72 H (0.52-1.04) mg/dL Glucose 129 H (74-99) mg/dL POC Glucose (mg/dL) 203 H (75-99) mg/dL Magnesium 2.5 H (1.6-2.3) mg/dL 10/08/19 Range/Units 07:08 WBC (3.8-10.6) k/uL RBC (3.80-5.40) m/uL Hgb (11.4-16.0) gm/dL Hct (34.0-46.0) % RDW (11.5-15.5) % Sodium (137-145) mmol/L BUN (7-17) mg/dL Creatinine (0.52-1.04) mg/dL Glucose (74-99) mg/dL POC Glucose (mg/dL) 144 H (75-99) mg/dL Magnesium (1.6-2.3) mg/dL - Imaging and Cardiology Chest x-ray: image reviewed Assessment and Plan Assessment: 1. Single-vessel coronary artery disease, status post single vessel coronary artery bypass grafting REYES to the left anterior descending coronary artery 2. Severe functional mitral valve regurgitation, status post mitral valve repair using a reduction annuloplasty with a 28 mm physio-II ring 3. Mild tricuspid valve regurgitation 4. Acute on chronic systolic heart failure, with a preoperative ejection fraction of 35-40% 5. History of coronary artery disease with previous stent placement to her left anterior descending coronary artery in 2017 6. Hypertension 7. Dyslipidemia 8. Poorly controlled insulin-dependent diabetes mellitus with a preoperative hemoglobin A1c of 10.7% 8. Ischemic cardiomyopathy 9. Pulmonary hypertension, likely related to valvular disease 10. Stage III chronic kidney disease with a baseline creatinine of 1.5 11. Obstructive sleep apnea 12. Preoperative urinary tract infection of Klebsiella pneumoniae, treated 13. Morbid obesity 14. Postoperative acute blood loss anemia 15. Postoperative third-degree heart block, an unexpected but potential outcome of surgery 16. Postoperative paroxysmal atrial fibrillation, an unexpected but potential outcome of surgery Plan: 1. Continue aspirin, statin, Plavix, and beta anaid. 2. Encourage incentive spirometry 10 times every hour while awake. 3. Bronchodilators per pulmonology management. 4. Increase activity, out of bed for all meals. PT/OT/cardiac rehab following. 5. Will monitor daily labs and chest x-rays. Electrolyte replacement per protocol. 6. Pain controlled current medication regimen. Avoid Toradol due to the patient's renal function. 7. Insulin management per primary care service. 8. Keep atrial and ventricular epicardial pacemaker wires in place and connected to backup pacemaker generator with a VVI 50. 9. Heart rate management per Dr. Kendall and cardiology. We will start the patient on anticoagulation after her epicardial pacemaker wires have been removed. The patient will be tentatively scheduled for BI-V AICD on Thursday to be performed by Dr. Kendall. No EKG patches to her left pectoralis area. Clean left pectoralis area twice a day with CHG prep. 10. Lasix 40 mg IV 1 now. 11. Discharge planning is in place. Dr. Walsh has been consulted regarding possible inpatient rehab placement versus discharge home with home health care. 12. More recommendations to follow based on patient's clinical course. Time with Patient: Greater than 30
--- NOTE | 2019-10-08 09:48 | P.PN ---
Subjective Progress Note Date: 10/08/19 This is a 68-year-old female with history of single-vessel coronary artery disease and mitral regurgitation, status post bypass surgery and mitral valve repair. Patient also has underlying atrial fibrillation with left bundle-branch block pattern. Patient developed bradycardia after she was treated with IV amiodarone. Patient is off amiodarone at this time. She is a small dose of beta anaid. Her heart rate is controlled without any significant bradyarrhythmias. Patient is sitting up in the chair and seems to be stable. Complain some mild chest pain but no shortness of breath. Lungs show some diminished breath sounds at bases and few rhonchi. Heart is irregular. Overall patient's critical status seemed to be stable. We'll continue current medical therapy. Increase activity and possible transfer to telemetry unit. Continue monitoring for any significant bradyarrhythmias. 10/08/2019: This patient seemed to be much stable. Patient is back in sinus rhythm. Denies any significant chest pain or shortness of breath. Tolerating activity. No other arrhythmias. She is only on beta anaid. Lungs sound clear. Heart is regular. Patient urine output is good with a negative balance of more than a liter. Patient could be transferred to telemetry unit. Hopefully discharge within next 24-48 hours Objective - Vital Signs Vital signs: Vital Signs Temp 97.9 F 10/08/19 08:00 Pulse 78 10/08/19 09:30 Resp 10 L 10/08/19 09:30 BP 114/58 10/08/19 09:30 Pulse Ox 94 L 10/08/19 09:30 Intake & Output 10/07/19 10/08/19 10/08/19 18:59 06:59 18:59 Intake Total 20 0 Output Total 825 400 200 Balance -805 -400 -200 Weight 90.9 kg Intake: IV 20 0 0.9 20 0 Output: Urine 825 400 200 Other: Voiding Method Bedside Commode Bedside Commode Bedside Commode # Voids 0 0 0 ABP, PAP, CO, CI - Last Documented Arterial Blood Pressure 130/42 Pulmonary Artery Pressure 46/22 Cardiac Output 4.6 Cardiac Index 2.6 - Exam GENERAL EXAM: Patient is alert and oriented and doesn't appear to be in any acute distress HEENT: Normocephalic. Normal reaction of pupils, equal size, normal range of extraocular motion. No erythema or exudates in the throat. NECK: No masses, no nuchal rigidity. CHEST: No chest wall deformity. LUNGS: Diminished breath sounds at bases HEART: S1 and S2 normal. Regular rhythm ABDOMEN: No hepatosplenomegaly, normal bowel sounds, no guarding or rigidity. SKIN: No rashes CENTRAL NERVOUS SYSTEM: No focal deficits. EXTREMITIES: No cyanosis, clubbing or edema. - Labs CBC & Chem 7: 10/08/19 05:07 10/08/19 05:07 Labs: Abnormal Lab Results - Last 24 Hours (Table) 10/07/19 10/07/19 10/07/19 Range/Units 12:03 16:54 20:20 WBC (3.8-10.6) k/uL RBC (3.80-5.40) m/uL Hgb (11.4-16.0) gm/dL Hct (34.0-46.0) % RDW (11.5-15.5) % Sodium (137-145) mmol/L BUN (7-17) mg/dL Creatinine (0.52-1.04) mg/dL Glucose (74-99) mg/dL POC Glucose (mg/dL) 179 H 157 H 203 H (75-99) mg/dL Magnesium (1.6-2.3) mg/dL 10/08/19 10/08/19 10/08/19 Range/Units 05:07 05:07 07:08 WBC 11.4 H (3.8-10.6) k/uL RBC 2.38 L (3.80-5.40) m/uL Hgb 7.0 L (11.4-16.0) gm/dL Hct 21.6 L (34.0-46.0) % RDW 18.6 H (11.5-15.5) % Sodium 134 L (137-145) mmol/L BUN 58 H (7-17) mg/dL Creatinine 1.72 H (0.52-1.04) mg/dL Glucose 129 H (74-99) mg/dL POC Glucose (mg/dL) 144 H (75-99) mg/dL Magnesium 2.5 H (1.6-2.3) mg/dL Assessment and Plan (1) Status post aorto-coronary artery bypass graft Current Visit: Yes Status: Acute Code(s): Z95.1 - PRESENCE OF AORTOCORONARY BYPASS GRAFT SNOMED Code(s): 865753532 (2) Status post mitral valve repair Current Visit: Yes Status: Acute Code(s): Z98.890 - OTHER SPECIFIED POSTPROCEDURAL STATES SNOMED Code(s): 789257732 (3) Left bundle branch block Current Visit: Yes Status: Acute Code(s): I44.7 - LEFT BUNDLE-BRANCH BLOCK, UNSPECIFIED SNOMED Code(s): 30142361 (4) Atrial fibrillation Current Visit: Yes Status: Acute Code(s): I48.91 - UNSPECIFIED ATRIAL FIBRILLATION SNOMED Code(s): 93714632 (5) Bradycardia Current Visit: Yes Status: Acute Code(s): R00.1 - BRADYCARDIA, UNSPECIFIED SNOMED Code(s): 98807996 Plan: Patient is doing much better. Patient is back in sinus rhythm. Patient could be transferred to telemetry unit and increase activity as tolerated
--- NOTE | 2019-10-08 10:44 | P.PN ---
Progress Note - Text Discussed with CT surgery Patient continues to have episodes of atrial fibrillation, paroxysmal Prolonged NM interval Continues to have episodes of bradycardia with intermittent need for pacing We will repeat 2-D echo Doppler study today to reassess LV function Will need biventricular pacing since she has an underlying left bundle-branch block, prolonged NM interval, intermittent episodes of bradycardia both sinus pauses and Mobitz 2 AV block and the anticipated RV pacing percentage will be greater than 40% Biventricular ICD if left ventricular ejection fraction is 35% or less Suggest Remove EKG patches from the left pectoral area No central line left subclavian or left IJ Avoid central lines Daily Hibiclens bath Daily ChloraPrep cleansing of the left pectoral area neck and left axilla Review 2-D echo Doppler study and rhythms tomorrow
[2019-10-08] MEDS ORDERED: SODIUM CHLORIDE 0.9% 1,000 ML IV SCH (10:45)
--- NOTE | 2019-10-08 12:43 | P.PN ---
Subjective Progress Note Date: 10/08/19 Principal diagnosis: Status post CABG, MVR. Postoperative day # 5 68-year-old of Dr. Moore, with past medical history of coronary artery disease with previous stenting of the LAD in 2017, hypertension, hyperlipidemia, insulin-dependent diabetes mellitus, morbid obesity, stage III chronic kidney disease, pulmonary hypertension, family history of hypertension and diabetes. Patient was hospitalized last November 2018 when she presented with complaints of severe, constant, sharp chest pain with left arm radiation. Patient had echocardiogram that showed a moderately impaired LV function with EF of 35-40%, mild aortic regurgitation, mild mitral annular calcification and moderate to severe mitral regurgitation. There was evidence of severe pulmonary hypertension and moderate tricuspid regurg. Patient went on to have cardiac catheterization that showed LAD stenosis of 70% in the proximal portion. YULIANA showed EF of 35-40%, severe mitral regurgitation, with a dilated annulus and poor coaptation of the mitral leaflets and moderate to severe tricuspid regurgitation. She was referred to CT surgery for surgical evaluation, and it took her several months to obtain dental clearance, and optimize her diabetes. Today on 10/03/2019 patient had a one-vessel bypass with REYES to LAD, and mitral valve repair, his occlusion of the left atrial appendage. She is seen in the p ostoperative period in the intensive care unit, she is intubated, sedated on mechanical ventilator, current vent settings assist control mode with a rate of 16, tidal vital 350, FiO2 50% and PEEP of 8. Current drips include 0.9 normal saline at a rate of 50, Primacor at 0.3 mics per kilo per minute, levo fed at 0.04 mics per kilo per minute, insulin drip, and Diprivan at 20 mics per kilo per minute. PA pressure is 48/27, CVP 13, cardiac output and index are 4.6 and 2.6 respectively, AV wires in place, patient is on VVI Mode and is currently pacing at 100%. 2 mediastinal chest tubes with 130 mL of sanguinous output, left pleural and right pleural with 120 and 50 ML of sanguinous output res pectively. Postop blood work shows a white blood cell count of 12.3, hemoglobin of 8.7, sodium is 136, the rest of electrolytes are within normal limits, BUN 62 and creatinine is 1.74. Patient was reevaluated today on 10/04/19, patient was extubated around 4 AM this morning. He tolerated the extubation quite well. Presently on IV fluid at 50 mL per hour. Patient has intermittent episodes of confusion. Remains on Primacor at 0. one 5 mcg/kg/m. Patient is paced with VVI pacemaker at 50 bpm. Her cardiac index is 2.8, cardiac output is 5 CVP is 10. Chest x-ray showed minimal atelectasis at the bases. Patient had REYES to LAD, mitral valve repair and she again she is postoperative day #1. Patient is on 6 L high flow nasal cannula. O2 saturations 98%. Achieving 500 mL on her incentive spirometer. She has noted some surgical type of pain at the side of her chest tube insertion, and mostly when taking a deep breath. Denies shortness of breath. Mediastinal right and left pleural chest tubes remain in place. On continuous wall suction. No air leak. Draining thin serosanguineous drainage with the 130 mL output in the last 8 hours and 300 mL output since surgery from the medi astinal chest tubes. Patient was reevaluated today on 10/05/19, patient remains sitting in bed, doing well, no specific complaints. She is oriented [address] mostly [address] and place. Not oriented to time. Denies any complaints, she has some vague chest pain upon taking a deep breath. She is hemodynamically stable, not requiring any pressors. Her cardiac index is 2.6, cardiac output is 4.6. CVP is 14. Chest x-ray showed minimal atelectasis at the bases especially at the left base. Patient remains on 4 L nasal cannula, and O2 saturations 96%. She is achieving about 500 MLS her incentive spirometer. Her mediastinal left and right pleural chest tubes remained in place, no air leak noted. Drainage was noted, amount is becoming less and less over the last 2 days. She had a T-max of 99.7. Otherwise the patient is doing great. She does seem to be globally weak Patient was reevaluated today on 10/06/19, remains in the ICU, patient is sitting in a recliner. Denies any shortness of breath, no cough no wheezing, presently she has sinus rhythm and a second-degree AV block, hemodynamically stable, not requiring any pressors and at night she went into controlled atrial fibrillation. Placed on amiodarone and she remains on protocol this morning. Dr. Tavarez was consulted regarding her arrhythmia. He is recommending switching patient to oral amiodarone. Low-dose beta blockers and possibly eventually placed the patient back on her Coreg twice a day. No plans at least at this point to place a permanent pacer. He will assess the patient on outpatient basis chest x-ray today showed mostly left basilar atelectasis. Reevaluated today on 11/03/19, patient is doing quite well. Remains in the ICU, in no distress, denies any shortness of breath or pain. Heart rate is in the low 60s and 70s, patient is in atrial fibrillation. Hemodynamically stable. And she is doing better with incentive spirometry. Chest x-ray continues to show minimal left basilar atelectasis. Reevaluated today on 10/08/19, patient is doing fairly well, asymptomatic, chest x-ray is showing improvement, continues to have issues related to her intermittent episodes of cardiac arrhythmia. Patient is not requiring any inotropes. She is hemodynamically stable. Patient is presently in atrial fibrillation, she is on 2 L nasal cannula. And she is being considered for AICD placement next Thursday. Objective - Vital Signs Vital signs: Vital Signs Temp 97.9 F 10/08/19 08:00 Pulse 79 10/08/19 11:50 Resp 20 10/08/19 11:00 BP 130/63 10/08/19 11:00 Pulse Ox 97 10/08/19 11:00 Intake & Output 10/07/19 10/08/19 10/08/19 18:59 06:59 18:59 Intake Total 20 0 Output Total 825 400 450 Balance -805 -400 -450 Weight 90.9 kg Intake: IV 20 0 0.9 20 0 Output: Urine 825 400 450 Other: Voiding Method Bedside Commode Bedside Commode Bedside Commode # Voids 0 0 0 ABP, PAP, CO, CI - Last Documented Arterial Blood Pressure 130/42 Pulmonary Artery Pressure 46/22 Cardiac Output 4.6 Cardiac Index 2.6 - Exam GENERAL EXAM: Revealed 68-year-old female in no distress. On 2 L nasal cannula. Head: Atraumatic, normocephalic. HEENT: PERRLA, EOMI, no icterus, no neck masses, no JVD. CHEST: No chest wall deformity. Diminished breath sounds at the bases no crackles or rhonchi and wheezes. CVS: Regular rate and rhythm, normal S1 and S2, no gallops, no murmurs, no rubs ABDOMEN: Soft, nontender. No hepatosplenomegaly, normal bowel sounds, no guarding or rigidity. EXTREMITIES: No clubbing, no edema, no cyanosis, 2+ pulses and upper and lower extremities. MUSCULOSKELETAL: Muscle strength and tone normal. SPINE: No scoliosis or deformity SKIN: No rashes CENTRAL NERVOUS SYSTEM: Alert and oriented 2, not oriented to time. - Labs CBC & Chem 7: 10/08/19 05:07 10/08/19 05:07 Labs: Abnormal Lab Results - Last 24 Hours (Table) 10/07/19 10/07/19 10/08/19 Range/Units 16:54 20:20 05:07 WBC 11.4 H (3.8-10.6) k/uL RBC 2.38 L (3.80-5.40) m/uL Hgb 7.0 L (11.4-16.0) gm/dL Hct 21.6 L (34.0-46.0) % RDW 18.6 H (11.5-15.5) % Sodium (137-145) mmol/L BUN (7-17) mg/dL Creatinine (0.52-1.04) mg/dL Glucose (74-99) mg/dL POC Glucose (mg/dL) 157 H 203 H (75-99) mg/dL Magnesium (1.6-2.3) mg/dL 10/08/19 10/08/19 Range/Units 05:07 07:08 WBC (3.8-10.6) k/uL RBC (3.80-5.40) m/uL Hgb (11.4-16.0) gm/dL Hct (34.0-46.0) % RDW (11.5-15.5) % Sodium 134 L (137-145) mmol/L BUN 58 H (7-17) mg/dL Creatinine 1.72 H (0.52-1.04) mg/dL Glucose 129 H (74-99) mg/dL POC Glucose (mg/dL) 144 H (75-99) mg/dL Magnesium 2.5 H (1.6-2.3) mg/dL Assessment and Plan Assessment: Impression: Status post 1 vessel bypass, REYES to LAD and mitral valve repair postoperative day #5 Acute blood loss anemia, outcome of bypass surgery, this is expected. Acute on chronic congestive heart failure, systolic in nature. History of chronic kidney disease. Obstructive sleep apnea syndrome. Morbid obesity. Postoperative cardiac arrhythmia, presently in atrial fibrillation. History of diabetes, poorly controlled, patient is on insulin drip. Benign essential hypertension. Postoperative atelectasis, expected after surgery Previous stenting of LAD. Ischemic cardiomyopathy and LV dysfunction with ejection fraction of 35%. Pulmonary hypertension related to valvular heart disease. Recommendation: Continue incentive spirometry. Continue low-dose beta blockers Plavix and statins. Continue to wean oxygen as tolerated. Continue bronchodilators. Continue ambulation. Continue insulin for diabetes management. Continue pain control management. Scheduled for possible AICD placement on Thursday We will continue to follow. Time with Patient: Less than 30
--- NOTE | 2019-10-08 12:51 | ECHOF ---
Referral Reason:[facility] LV function MEASUREMENTS -------- HEIGHT: 152.4 cm WEIGHT: 90.7 kg BP: RVIDd: 3.6 cm (< 3.3) IVSd: 1.0 cm (0.6 - 1.1) LVIDd: 5.1 cm (3.9 - 5.3) LVPWd: 1.5 cm (0.6 - 1.1) IVSs: 1.0 cm LVIDs: 4.6 cm LVPWs: 1.3 cm Ao Diam: 3.0 cm (2.0 - 3.7) AV Cusp: 1.6 cm (1.5 - 2.6) LA Diam: 3.4 cm (2.7 - 3.8) MV EXCURSION: 14.924 mm (> 18.000) MV EF SLOPE: 45 mm/s (70 - 150) EPSS: 1.4 cm MV E Ashwin: 1.11 m/s MV DecT: 253 ms MV A Ashwin: 1.14 m/s MV E/A Ratio: 0.98 RAP: 5.00 mmHg RVSP: 48.00 mmHg FINDINGS -------- Undetermined rhythm. This was a techncally difficult study with suboptimal views, , Lumason utilized for enhancement of im ages. The left ventricular size is normal. Left ventricular wall thickness is normal. There is severe g lobal hypokinesis of LV . Overall left ventricular systolic function is severely impaired with, an EF between 25 - 30 %. Mid anteroseptal LV wall motion is akinetic. The right ventricle is normal in size. The left atrial size is normal. The right atrial size is normal. 5.0mg OF Lumason UTLIZED: 2 OR MORE WALL SEGMENTS NOT VISUALIZED. There is mild aortic valve sclerosis. There is no evidence of aortic regurgitation. Mild mitral regurgitation is present. The peak and mean MV gradients are 9.52mmHg 3.64mmHg as tianna ured by doppler. [id number] tricuspid regurgitation present. There is moderate pulmonary hypertension. The r ight ventricular systolic pressure, as measured by Doppler, is 48.00mmHg. Trace/mild (physiologic) pulmonic regurgitation. The aortic root size is normal. There is no pericardial effusion. CONCLUSIONS -------- 1. Undetermined rhythm. 2. This was a techncally difficult study with suboptimal views, , Lumason utilized for enhancement of images. 3. The left ventricular size is normal. 4. Left ventricular wall thickness is normal. 5. There is severe global hypokinesis of LV . 6. Overall left ventricular systolic function is severely impaired with, an EF between 25 - 30 %. 7. Mid anteroseptal LV wall motion is akinetic. 8. The right ventricle is normal in size. 9. The left atrial size is normal. 10. The right atrial size is normal. 11. 5.0mg OF Lumason UTLIZED: 2 OR MORE WALL SEGMENTS NOT VISUALIZED. 12. There is mild aortic valve sclerosis. 13. Mild mitral regurgitation is present. 14. The peak and mean MV gradients are 9.52mmHg 3.64mmHg as measured by doppler. 15. [id number] tricuspid regurgitation present. 16. There is moderate pulmonary hypertension. 17. The right ventricular systolic pressure, as measured by Doppler, is 48.00mmHg. 18. Trace/mild (physiologic) pulmonic regurgitation. 19. The aortic root size is normal. 20. There is no pericardial effusion. INTERN: Rosie Brambila RDCS
--- NOTE | 2019-10-08 12:59 | CT ---
EXAMINATION TYPE: CT brain karolinaine wo con DATE OF EXAM: 10/08/2019 COMPARISON: 05/08/2017 HISTORY: Fall. Post OP CABG CT DLP: 1601.2 mGycm, Automated exposure control for dose reduction was used. CONTRAST: Patient injected with 0 mL of Isovue 300. CT of the brain is performed utilizing 3 mm thick sections through the posterior fossa and 3 mm thick sections through the remaining calvarium. Study is performed within 24 hours of arrival to the hospital. No abnormal hyperdensity is present to suggest an acute intracranial hemorrhage. No mass lesion is evident. Physiologic basal ganglion calcification is present bilaterally. No acute infarcts are evident. Ventricles and sulci are appropriate for the patient age. There is calcification along the anterior falx. Paranasal sinuses and mastoid air cells within the [id number] are clear. IMPRESSIONS: 1. No acute intracranial process. CT cervical spine. COMPARISON: None CT of the cervical spine is performed in the axial plane at 2 mm thick sections. Reconstructed image s in the coronal, and sagittal plane are reviewed on the computer. No acute fractures are evident. Vertebral body alignment is normal. Disc heights are preserved. Vertebral body heights are preserved. No spinal canal stenosis is evident. No neural foraminal stenosis is evident. Small left pleural effusion is present. Minimal right pleural effusion may be present. IMPRESSIONS: 1. No acute osseous abnormality cervical spine. 2. Small bilateral pleural effusions.
[2019-10-08 13:53] LABS: Glucose,Whole Blood 170 mg/dL (75-99)
[2019-10-08] MEDS: SODIUM CHLORIDE 0.9% 1,000 ML IV SCH (13:54)
[2019-10-08 16:22] LABS: Glucose,Whole Blood 204 mg/dL (75-99)
[2019-10-08] MEDS: ACETAMINOPHEN TAB 500 MG TAB PO PRN (17:59)
[2019-10-08] MEDS: SENNOSIDES-DOCUSATE SODIUM 1 EACH TAB PO SCH (20:47)
[2019-10-08 20:52] LABS: Glucose,Whole Blood 147 mg/dL (75-99)
[2019-10-09] MEDS: HEPARIN SODIUM,PORCINE 5,000 UNIT/ML 1 ML VIAL SQ SCH ×3 (00:48→17:11)
[2019-10-09 06:31] LABS: Anisocytosis Slight; Basophils % (A) 0 %; Eosinophils # (A) 0.5 k/uL (0-0.7); Eosinophils % (A) 4 %; HCT 22.6 % (34.0-46.0); HGB 7.3 gm/dL (11.4-16.0); Hypochromasia Slight; Lymphocytes # (A) 2.2 k/uL (1.0-4.8); Lymphocytes % (A) 17 %; MCH 29.6 pg (25.0-35.0); MCHC 32.5 g/dL (31.0-37.0); MCV 91.3 fL (80.0-100.0); Mean Platelet Volume 7.8; Monocytes # (A) 0.7 k/uL (0-1.0); Monocytes % (A) 5 %; Neutrophils # (A) 9.4 k/uL (1.3-7.7); Neutrophils % (A) 73 %; Platelet Count 281 k/uL (150-450); RBC 2.48 m/uL (3.80-5.40); RDW 18.7 % (11.5-15.5)
[2019-10-09 06:46] LABS: Calcium 8.8 mg/dL (8.4-10.2); Potassium 4.2 mmol/L (3.5-5.1)
[2019-10-09] MEDS: LEVOTHYROXINE 75 MCG TAB PO SCH (07:06)
[2019-10-09] MEDS: PANTOPRAZOLE 40 MG TABLET PO SCH (07:06)
[2019-10-09] MEDS: FERROUS SULFATE 325 MG TAB PO SCH ×2 (07:06→17:11)
[2019-10-09] MEDS: SODIUM CHLORIDE 0.9% 1,000 ML IV SCH (07:06)
[2019-10-09] MEDS: INSULIN DETEMIR (LEVEMIR) 100 UNIT/ML SYR SQ SCH ×2 (07:21→20:09)
[2019-10-09] MEDS: INSULIN ASPART (NovoLOG) 100 UNIT/ML VIAL SQ SCH ×6 (08:05→20:05)
[2019-10-09] MEDS: IPRATROPIUM-ALBUTEROL 3 ML NEB INHALATION SCH ×4 (08:07→19:54)
[2019-10-09] MEDS: CLOPIDOGREL 75 MG TAB PO SCH (08:09)
[2019-10-09] MEDS: METOPROLOL TARTRATE 12.5 MG TAB PO SCH ×2 (08:09→20:09)
[2019-10-09] MEDS: ATORVASTATIN 40 MG TAB PO SCH (08:09)
[2019-10-09] MEDS: ASPIRIN 325 MG TAB PO SCH (08:09)
[2019-10-09] MEDS: allopurinoL 300 MG TAB PO SCH (08:10)
[2019-10-09] MEDS: CITALOPRAM HYDROBROMIDE 20 MG TAB PO SCH (08:10)
[2019-10-09] MEDS ORDERED: FUROSEMIDE 10 MG/ML 4 ML VIAL IV STA (08:10)
--- NOTE | 2019-10-09 08:46 | XR ---
EXAMINATION TYPE: XR chest 2V DATE OF EXAM: 10/09/2019 COMPARISON: 10/08/2019 TECHNIQUE: PA and lateral views submitted. HISTORY: Post cardiac surgery FINDINGS: Postoperative change and cardiomegaly. No sizable pneumothorax. Minimal blunting of left costophrenic angle and perihilar areas of subsegmental consolidation. No overt failure. IMPRESSION: 1. Subsegmental areas of consolidation bilaterally are stable could be related to postoperative atele ctasis correlate clinically to exclude infiltrate.
[2019-10-09] MEDS ORDERED: LOSARTAN 25 MG TAB PO SCH ×2 (09:00→12:00)
--- NOTE | 2019-10-09 09:43 | P.PN ---
Subjective This is a 68-year-old female with history of single-vessel coronary artery disease and mitral regurgitation, status post bypass surgery and mitral valve repair. Patient also has underlying atrial fibrillation with left bundle-branch block pattern. Patient developed bradycardia after she was treated with IV amiodarone. Patient is off amiodarone at this time. She is a small dose of beta anaid. Her heart rate is controlled without any significant bradyarrhythmias. Patient is sitting up in the chair and seems to be stable. Complain some mild chest pain but no shortness of breath. Lungs show some diminished breath sounds at bases and few rhonchi. Heart is irregular. Overall patient's critical status seemed to be stable. We'll continue current medical therapy. Increase activity and possible transfer to telemetry unit. Continue m onitoring for any significant bradyarrhythmias. 10/08/2019: This patient seemed to be much stable. Patient is back in sinus rhythm. Denies any significant chest pain or shortness of breath. Tolerating activity. No other arrhythmias. She is only on beta anaid. Lungs sound clear. Heart is regular. Patient urine output is good with a negative balance of more than a liter. Patient could be transferred to telemetry unit. Hopefully discharge within next 24-48 hours 10/09/2019:his 68-year-old female is status post bypass surgery and mitral valve repair. Seemed to be feeling better. Complains of mild soreness in the chest from her incisions. Denies any significant shortness of breath. Continues to use temporary pacemaker. She is scheduled to have AICD and by ventricle pacemaker tomorrow. Patient doesn't have underlying left bundle-branch block. All LV function is impaired. Otherwise, systemic clinically stable. Continue current medical therapy Objective - Vital Signs Vital signs: Vital Signs Temp 97.5 F L 10/09/19 04:00 Pulse 67 10/09/19 07:00 Resp 18 10/09/19 07:00 BP 121/95 10/09/19 07:00 Pulse Ox 95 10/09/19 07:00 Intake & Output 10/08/19 10/09/19 10/09/19 18:59 06:59 18:59 Intake Total 500 600 50 Output Total 770 430 0 Balance -270 170 50 Intake: IV 350 600 50 0.9 350 600 50 Oral 150 Output: Urine 770 430 0 Other: Voiding Method Bedside Commode Bedside Commode # Voids 0 ABP, PAP, CO, CI - Last Documented Arterial Blood Pressure 130/42 Pulmonary Artery Pressure 46/22 Cardiac Output 4.6 Cardiac Index 2.6 - Exam GENERAL EXAM: Patient is alert and oriented and doesn't appear to be in any acute distress HEENT: Normocephalic. Normal reaction of pupils, equal size, normal range of extraocular motion. No erythema or exudates in the throat. NECK: No masses, no nuchal rigidity. CHEST: No chest wall deformity. LUNGS: Diminished breath sounds at bases HEART: S1 and S2 normal. Regular rhythm ABDOMEN: No hepatosplenomegaly, normal bowel sounds, no guarding or rigidity. SKIN: No rashes CENTRAL NERVOUS SYSTEM: No focal deficits. EXTREMITIES: No cyanosis, clubbing or edema. - Labs CBC & Chem 7: 10/09/19 06:02 10/09/19 06:02 Labs: Abnormal Lab Results - Last 24 Hours (Table) 10/08/19 10/08/19 10/08/19 Range/Units 13:52 16:19 20:51 WBC (3.8-10.6) k/uL RBC (3.80-5.40) m/uL Hgb (11.4-16.0) gm/dL Hct (34.0-46.0) % RDW (11.5-15.5) % Neutrophils # (1.3-7.7) k/uL Chloride (98-107) mmol/L BUN (7-17) mg/dL Creatinine (0.52-1.04) mg/dL POC Glucose (mg/dL) 170 H 204 H 147 H (75-99) mg/dL 10/09/19 10/09/19 Range/Units 06:02 06:02 WBC 13.0 H (3.8-10.6) k/uL RBC 2.48 L (3.80-5.40) m/uL Hgb 7.3 L (11.4-16.0) gm/dL Hct 22.6 L (34.0-46.0) % RDW 18.7 H (11.5-15.5) % Neutrophils # 9.4 H (1.3-7.7) k/uL Chloride 109 H (98-107) mmol/L BUN 54 H (7-17) mg/dL Creatinine 1.64 H (0.52-1.04) mg/dL POC Glucose (mg/dL) (75-99) mg/dL Assessment and Plan (1) Status post aorto-coronary artery bypass graft Current Visit: Yes Status: Acute Code(s): Z95.1 - PRESENCE OF AORTOCORONARY BYPASS GRAFT SNOMED Code(s): 218755496 (2) Status post mitral valve repair Current Visit: Yes Status: Acute Code(s): Z98.890 - OTHER SPECIFIED POSTPROCEDURAL STATES SNOMED Code(s): 163651019 (3) Left bundle branch block Current Visit: Yes Status: Acute Code(s): I44.7 - LEFT BUNDLE-BRANCH BLOCK, UNSPECIFIED SNOMED Code(s): 63747499 (4) Atrial fibrillation Current Visit: Yes Status: Acute Code(s): I48.91 - UNSPECIFIED ATRIAL FIBRILLATION SNOMED Code(s): 61246423 (5) Bradycardia Current Visit: Yes Status: Acute Code(s): R00.1 - BRADYCARDIA, UNSPECIFIED SNOMED Code(s): 48660430 Plan: Clinically stable. Scheduled to have biventricular ICD tomorrow.
--- NOTE | 2019-10-09 09:53 | P.PN ---
Subjective Progress Note Date: 10/09/19 Principal diagnosis: Single vessel coronary artery disease, severe functional mitral valve regurgitation with mild tricuspid valve regurgitation and heart failure. Past medical history significant for hypertension, coronary artery disease with previous stent placement to her proximal left anterior descending coronary artery in 2017, hyperlipidemia, insulin-dependent diabetes mellitus poorly controlled with a preoperative hemoglobin A1c of 10.7%, morbid obesity, stage III chronic kidney disease with a baseline creatinine of 1.5, obstructive sleep apnea, pulmonary hypertension and preoperative urinary tract infection of Klebsiella pneumoniae which was treated. POD #6 single coronary artery bypass grafting using the left internal mammary artery to left anterior descending coronary artery, mitral valve repair using a reduction annuloplasty with a 28 mm physio-II ring, exclusion of the left atrial appendage using a 45 mm Atriclip, intraoperative graft flow measurements using the [employer] sytem, intraoperative epi-aortic scanning and transesophageal echocardiogram. Postoperative acute blood loss anemia, an expected outcome secondary to cardiopulmonary bypass and hemodilution. Postoperative second-degree type 2/third-degree heart block, an unexpected but potential outcome of surgery. Postoperative paroxysmal atrial fibrillation, an unexpected but potential out come of surgery. The patient was seen today 10/09/2019 at her bedside in the intensive care unit. Currently she is sitting up to the bedside chair, is awake alert and oriented 3. She denies any complaints of pain or shortness of breath at rest. She is reporting some surgical type pain to her mediastinal incision with coughing and deep breathing. Patient remains hemodynamically stable and is currently on no inotropic or pressor support. Bedside telemetry showing atrial fibrillation with a left bundle branch block heart rate 84. Oxygen saturations are 95% on 2 L nasal cannula and she is achieving 750-1,000 mL on her incentive spirometry. While trying to ambulate on her own to the bathroom yesterday she did have a fall at her bedside. A computed tomography scan of her brain/C-spine without contrast was completed and did not demonstrate any acute intracranial process. This morning she denies any complaints of headache, nausea, vomiting, dizziness or pain. Objective - Vital Signs Vital signs: Vital Signs Temp 97.5 F L 10/09/19 04:00 Pulse 67 10/09/19 07:00 Resp 18 10/09/19 07:00 BP 121/95 10/09/19 07:00 Pulse Ox 95 10/09/19 07:00 Intake & Output 10/08/19 10/09/19 10/09/19 18:59 06:59 18:59 Intake Total 500 600 50 Output Total 770 430 0 Balance -270 170 50 Intake: IV 350 600 50 0.9 350 600 50 Oral 150 Output: Urine 770 430 0 Other: Voiding Method Bedside Commode Bedside Commode # Voids 0 ABP, PAP, CO, CI - Last Documented Arterial Blood Pressure 130/42 Pulmonary Artery Pressure 46/22 Cardiac Output 4.6 Cardiac Index 2.6 - Exam This is a pleasant 68-year-old female patient who is sitting up to the bedside chair in the intensive care unit. She is in no apparent acute distress, she is awake, alert and oriented 3. Oxygen saturation are 95 % on 2 L nasal cannula. - Constitutional General appearance: Present: cooperative, morbidly obese, no acute distress - EENT Eyes: Absent: scleral icterus ENT: Present: hearing grossly normal - Neck Details: Neck is supple, no JVD. - Respiratory Details: Lung sounds essentially clear throughout, diminished bilateral bases. No whe ezes, rhonchi or crackles present. Respirations are symmetrical and nonlabored. Oxygen saturation are 95% on 2 L nasal cannula. She is achieving 750-1000 mL on her incentive spirometry with much encouragement. - Cardiovascular Details: Irregular rhythm and controlled rate. S1 and S2 present, negative for S3, gallop or murmur. Sternum is stable. Heart hugger is in place and she is demonstrating appropriate use with encouragement. Bedside telemetry showing atrial fibrillation with left bundle branch block heart rate 84 BPM. Atrial and ventricular epicardial pacemaker wires in place to backup pacemaker generator with a VVI 50. Knee-high KARTHIKEYAN hose and sequential compression devices in place to her bilateral lower extremities. - Gastrointestinal Gastrointestinal Comment(s): Abdomen is soft, nontender and nondistended. Active bowel sounds present in all 4 abdominal quadrants. No guarding or rigidity. No organomegaly appreciated. Bowel movement this a.m. Tolerating oral intake. - Genitourinary Genitourinary Comment(s): Voiding clear christine urine. 300 mL output in the last 8 hours. - Integumentary Integumentary Comment(s): Skin is warm and dry. No clubbing or cyanosis is present. Midline sternal incision is clean, dry and approximated. No drainage or redness is present. Gauze dressing is clean, dry and in place. - Neurologic Neurologic: Present: CNII-XII intact - Musculoskeletal Musculoskeletal: Present: gait normal, generalized weakness, strength equal bilaterally - Psychiatric Psychiatric Comment(s): Flat affect. Impulsive episodes. Psychiatric: Present: A&O x's 3 - Allied health notes Allied health notes reviewed: nursing - Labs CBC & Chem 7: 10/09/19 06:02 10/09/19 06:02 Labs: Abnormal Lab Results - Last 24 Hours (Table) 10/08/19 10/08/19 10/08/19 Range/Units 13:52 16:19 20:51 WBC (3.8-10.6) k/uL RBC (3.80-5.40) m/uL Hgb (11.4-16.0) gm/dL Hct (34.0-46.0) % RDW (11.5-15.5) % Neutrophils # (1.3-7.7) k/uL Chloride (98-107) mmol/L BUN (7-17) mg/dL Creatinine (0.52-1.04) mg/dL POC Glucose (mg/dL) 170 H 204 H 147 H (75-99) mg/dL 10/09/19 10/09/19 Range/Units 06:02 06:02 WBC 13.0 H (3.8-10.6) k/uL RBC 2.48 L (3.80-5.40) m/uL Hgb 7.3 L (11.4-16.0) gm/dL Hct 22.6 L (34.0-46.0) % RDW 18.7 H (11.5-15.5) % Neutrophils # 9.4 H (1.3-7.7) k/uL Chloride 109 H (98-107) mmol/L BUN 54 H (7-17) mg/dL Creatinine 1.64 H (0.52-1.04) mg/dL POC Glucose (mg/dL) (75-99) mg/dL Assessment and Plan Assessment: 1. Single-vessel coronary artery disease, status post single vessel coronary artery bypass grafting REYES to the left anterior descending coronary artery 2. Severe functional mitral valve regurgitation, status post mitral valve repair using a reduction annuloplasty with a 28 mm physio-II ring 3. Mild tricuspid valve regurgitation 4. Acute on chronic systolic heart failure, with a preoperative ejection fraction of 35-40% 5. History of coronary artery disease with previous stent placement to her left anterior descending coronary artery in 2017 6. Hypertension 7. Dyslipidemia 8. Poorly controlled insulin-dependent diabetes mellitus with a preoperative hemoglobin A1c of 10.7% 8. Ischemic cardiomyopathy 9. Pulmonary hypertension, likely related to valvular disease 10. Stage III chronic kidney disease with a baseline creatinine of 1.5 11. Obstructive sleep apnea 12. Preoperative urinary tract infection of Klebsiella pneumoniae, treated 13. Morbid obesity 14. Postoperative acute blood loss anemia 15. Postoperative second-degree type 2/third-degree heart block, an unexpected but potential outcome of surgery 16. Postoperative paroxysmal atrial fibrillation, an unexpected but potential outcome of surgery Plan: 1. Continue aspirin, statin, Plavix, and beta anaid. 2. Encourage incentive spirometry 10 times every hour while awake. 3. Bronchodilators per pulmonology management. 4. Increase activity, out of bed for all meals. PT/OT/cardiac rehab following. 5. Will monitor daily labs and chest x-rays. Electrolyte replacement per protocol. 6. Pain controlled current medication regimen. Avoid Toradol due to the patient's renal function. 7. Insulin management per primary care service. 8. Keep atrial and ventricular epicardial pacemaker wires in place and connected to backup pacemaker generator with a VVI 50. 9. Heart rate management per Dr. Kendall and cardiology. We will start the patient on anticoagulation after her epicardial pacemaker wires have been removed. The patient will be tentatively scheduled for biventricular AICD on Thursday to be performed by Dr. Kendall. No EKG patches to her left pectoral, left neck or axilla area. Clean left pectoralis area daily with CHG prep. 10. Lasix 40 mg IV 1 now. 11. Cozaar 25 mg by mouth daily at noon and Aldactone 12.5 mg by mouth daily added for afterload reduction. 12. We will start amiodarone 400 mg by mouth twice a day for atrial fibrillation prophylaxis. 13. Discharge planning is in place. Dr. Walsh has been consulted regarding possible inpatient rehab placement. Anticipate patient will need placement for inpatient rehab upon discharge. 12. More recommendations to follow based on patient's clinical course. Time with Patient: Greater than 30
[2019-10-09 11:52] LABS: Glucose,Whole Blood 167 mg/dL (75-99)
--- NOTE | 2019-10-09 12:03 | P.PN ---
Subjective This is a pleasant 68 years old female with past medical history of coronary artery disease, heart failure status post stent placement, diabetes mellitus, GERD, hypertension, hyperlipidemia, sleep apnea on CPAP/BiPAP, hypothyroidism. She is a status post 1 vessel bypass surgery and today postop day #1. She also got extubated today and currently she is on nasal cannula at 4 L/m was saturating 95-98%, patient denies chest pain or dyspnea except as surgical site which is expected. Rest of Vitas looks stable. Labs reviewed showed mild leukocytosis of 12 K, INR is normal, sugar controlled, creatinine 1.9 (baseline 1.4-2.0) Chest x-ray: Improved radiation Patient is currently on aspirin, metoprolol, oral levothyroxine, Protonix 10/05/2019 Patient remains in the ICU with no chest pain or dyspnea. However today her blood pressure dropped with physical therapy session went down to 80/40, patient brought back on lying position in the chair, she was fully awake and oriented however she looked pale with no chest pain or dyspnea. Recheck blood pressure show improvement, please see records. Progressive vitals are stable. Sugar controlled 141-152 today her chest tube and swelling Came out 10/06/2019 Patient is awake and alert, looks tired but she denies chest pain or dyspnea and vitals are stable. Sugar controlled and WBC is trending down to 11.6 K. Creatinine down to 1.7. Patient was on insulin drip which could be stopped, patient is eating. Resume her Levemir 15 units twice a day (was 22 units at home) and 3 units with meals (was 6 units at home), keep insulin sliding scale. Cardiology team also following the case today. 10/07/2019 Patient is up in chair, no dizziness, blood pressure is a stable at 117/66. No postural symptoms. She was sitting and eating in bed with no difficulty. She still have some pain in the surgical site which is expected. Mild Leukocytosis of 12.4 K. Creatinine 1.8 him at baseline. Sugar control, continue with same regimen 10/08/19 Patient is in chair, no chest pain, no dizziness. Breathing quietly. Vitas looks stable and blood pressure 109/63, heart rate is 77 beats per minute which is sinus. She is eating well and tolerating that well however she has constipation and ask for some laxative WBC is 11.4 K,, creatinine at baseline 1.7 Dr. Coppola evaluated patient for possible inpatient rehab, patient agrees Patient may be considered for transfer to general medical floor 10/09/2019 Patient lying comfortable in bed, no chest pain or dyspnea, she is tolerating diet well. Vitals are stable. WBC is trending down to 13 K, hemoglobin 7.3, creatinine is improving to 1.6. Chest x-ray: subsegmental areas of consolidation by laboratory are stable, related to postoperative atelectasis Patient has been having periods of bradycardia with arson investigator evaluated patient and found her with bradycardia, periods of A. fib and with left bundle branch block and prolonged MN interval, with planning for placement of AICD device on Thursday Patient remains in the ICU for now Objective - Vital Signs Vital signs: Vital Signs Temp 98.1 F 10/09/19 08:00 Pulse 80 10/09/19 11:00 Resp 20 10/09/19 11:00 BP 119/62 10/09/19 11:00 Pulse Ox 95 10/09/19 11:00 Intake & Output 10/08/19 10/09/19 10/09/19 18:59 06:59 18:59 Intake Total 500 600 300 Output Total 770 430 0 Balance -270 170 300 Intake: IV 350 600 300 0.9 350 600 300 Oral 150 Output: Urine 770 430 0 Other: Voiding Method Bedside Commode Bedside Commode Bedside Commode # Voids 0 1 ABP, PAP, CO, CI - Last Documented Arterial Blood Pressure 130/42 Pulmonary Artery Pressure 46/22 Cardiac Output 4.6 Cardiac Index 2.6 - Exam GENERAL: The patient is alert and oriented x3, not in any acute distress. Well developed, well nourished. HEENT: Pupils are round and equally reacting to light. EOMI. No scleral icterus. No conjunctival pallor. Normocephalic, atraumatic. No pharyngeal erythema. No thyromegaly. -CARDIOVASCULAR: S1 and S2 present. No murmurs, rubs, or gallops. Sternal wound is in a dressing PULMONARY: Chest is clear to auscultation, no wheezing or crackles. ABDOMEN: Soft, nontender, nondistended, normoactive bowel sounds. No palpable organomegaly. MUSCULOSKELETAL: No joint swelling or deformity. EXTREMITIES: No cyanosis, clubbing, or pedal edema. NEUROLOGICAL: Gross neurological examination did not reveal any focal deficits. SKIN: No rashes. No petechiae - Labs CBC & Chem 7: 10/09/19 06:02 10/09/19 06:02 Labs: Abnormal Lab Results - Last 24 Hours (Table) 10/08/19 10/08/19 10/08/19 Range/Units 13:52 16:19 20:51 WBC (3.8-10.6) k/uL RBC (3.80-5.40) m/uL Hgb (11.4-16.0) gm/dL Hct (34.0-46.0) % RDW (11.5-15.5) % Neutrophils # (1.3-7.7) k/uL Chloride (98-107) mmol/L BUN (7-17) mg/dL Creatinine (0.52-1.04) mg/dL POC Glucose (mg/dL) 170 H 204 H 147 H (75-99) mg/dL 10/09/19 10/09/19 10/09/19 Range/Units 06:02 06:02 11:51 WBC 13.0 H (3.8-10.6) k/uL RBC 2.48 L (3.80-5.40) m/uL Hgb 7.3 L (11.4-16.0) gm/dL Hct 22.6 L (34.0-46.0) % RDW 18.7 H (11.5-15.5) % Neutrophils # 9.4 H (1.3-7.7) k/uL Chloride 109 H (98-107) mmol/L BUN 54 H (7-17) mg/dL Creatinine 1.64 H (0.52-1.04) mg/dL POC Glucose (mg/dL) 167 H (75-99) mg/dL Assessment and Plan Assessment: coronary artery disease, status post 1 vessel bypass surgery Cardiac arrhythmia with periods of A. fib, bradycardia, left bundle branch block and Hypertension Diabetes mellitus Hyperlipidemia chronic kidney disease, stage III History of coronary artery disease, status post stent placement GERD Current systolic cardiac failure, EF 35-40% Severe mitral regurgitation, severe tricuspid regurgitation Severe pulmonary hypertension Hypothyroidism Sleep apnea on CPAP/BiPAP chronic Plan: This is a pleasant 68 years old female who was admitted for cardiac bypass surgery and valve repair, continue with aspirin, metoprolol and levothyroxine. Resume insulin and monitor sugar. Patient is planned for AICD on Thursday with cartilage team Labs and medication were reviewed.. Continue same treatment. Continue with symptomatic treatment. Resume home medication. Monitor lytes and vitals. DVT and GI prophylaxis. Further recommendations of the clinical course of the patient DVT prophylaxis: Subcutaneous heparin GI Prophylaxis: Ppi Prognosis is guarded Thank you for consulting us
[2019-10-09] MEDS: AMIODARONE 200 MG TAB PO SCH ×2 (12:55→20:09)
[2019-10-09] MEDS: SPIRONOLACTONE 25 MG TAB PO SCH (12:56)
[2019-10-09] MEDS: LOSARTAN 25 MG TAB PO SCH (12:56)
--- NOTE | 2019-10-09 13:19 | P.PN ---
Subjective Progress Note Date: 10/09/19 Principal diagnosis: Status post CABG, MVR. Postoperative day # 6 68-year-old of Dr. Moore, with past medical history of coronary artery disease with previous stenting of the LAD in 2017, hypertension, hyperlipidemia, insulin-dependent diabetes mellitus, morbid obesity, stage III chronic kidney disease, pulmonary hypertension, family history of hypertension and diabetes. Patient was hospitalized last November 2018 when she presented with complaints of severe, constant, sharp chest pain with left arm radiation. Patient had echocardiogram that showed a moderately impaired LV function with EF of 35-40%, mild aortic regurgitation, mild mitral annular calcification and moderate to severe mitral regurgitation. There was evidence of severe pulmonary hypertension and moderate tricuspid regurg. Patient went on to have cardiac catheterization that showed LAD stenosis of 70% in the proximal portion. [place] showed EF of 35-40%, severe mitral regurgitation, with a dilated annulus and poor coaptation of the mitral leaflets and moderate to severe tricuspid regurgitation. She was referred to CT surgery for surgical evaluation, and it took her several months to obtain dental clearance, and optimize her diabetes. Today on 10/03/2019 patient had a one-vessel bypass with REYES to LAD, and mitral valve repair, his occlusion of the left atrial appendage. She is seen in the p ostoperative period in the intensive care unit, she is intubated, sedated on mechanical ventilator, current vent settings assist control mode with a rate of 16, tidal vital 350, FiO2 50% and PEEP of 8. Current drips include 0.9 normal saline at a rate of 50, Primacor at 0.3 mics per kilo per minute, levo fed at 0.04 mics per kilo per minute, insulin drip, and Diprivan at 20 mics per kilo per minute. PA pressure is 48/27, CVP 13, cardiac output and index are 4.6 and 2.6 respectively, AV wires in place, patient is on VVI Mode and is currently pacing at 100%. 2 mediastinal chest tubes with 130 mL of sanguinous output, left pleural and right pleural with 120 and 50 ML of sanguinous output res pectively. Postop blood work shows a white blood cell count of 12.3, hemoglobin of 8.7, sodium is 136, the rest of electrolytes are within normal limits, BUN 62 and creatinine is 1.74. Patient was reevaluated today on 10/04/19, patient was extubated around 4 AM this morning. He tolerated the extubation quite well. Presently on IV fluid at 50 mL per hour. Patient has intermittent episodes of confusion. Remains on Primacor at 0. one 5 mcg/kg/m. Patient is paced with VVI pacemaker at 50 bpm. Her cardiac index is 2.8, cardiac output is 5 CVP is 10. Chest x-ray showed minimal atelectasis at the bases. Patient had REYES to LAD, mitral valve repair and she again she is postoperative day #1. Patient is on 6 L high flow nasal cannula. O2 saturations 98%. Achieving 500 mL on her incentive spirometer. She has noted some surgical type of pain at the side of her chest tube insertion, and mostly when taking a deep breath. Denies shortness of breath. Mediastinal right and left pleural chest tubes remain in place. On continuous wall suction. No air leak. Draining thin serosanguineous drainage with the 130 mL output in the last 8 hours and 300 mL output since surgery from the medi astinal chest tubes. Patient was reevaluated today on 10/05/19, patient remains sitting in bed, doing well, no specific complaints. She is oriented 2 mostly [address] and place. Not oriented to time. Denies any complaints, she has some vague chest pain upon taking a deep breath. She is hemodynamically stable, not requiring any pressors. Her cardiac index is 2.6, cardiac output is 4.6. CVP is 14. Chest x-ray showed minimal atelectasis at the bases especially at the left base. Patient remains on 4 L nasal cannula, and O2 saturations 96%. She is achieving about 500 MLS her incentive spirometer. Her mediastinal left and right pleural chest tubes remained in place, no air leak noted. Drainage was noted, amount is becoming less and less over the last 2 days. She had a T-max of 99.7. Otherwise the patient is doing great. She does seem to be globally weak Patient was reevaluated today on 10/06/19, remains in the ICU, patient is sitting in a recliner. Denies any shortness of breath, no cough no wheezing, presently she has sinus rhythm and a second-degree AV block, hemodynamically stable, not requiring any pressors and at night she went into controlled atrial fibrillation. Placed on amiodarone and she remains on protocol this morning. Dr. Tavarez was consulted regarding her arrhythmia. He is recommending switching patient to oral amiodarone. Low-dose beta blockers and possibly eventually placed the patient back on her Coreg twice a day. No plans at least at this point to place a permanent pacer. He will assess the patient on outpatient basis chest x-ray today showed mostly left basilar atelectasis. Reevaluated today on 11/03/19, patient is doing quite well. Remains in the ICU, in no distress, denies any shortness of breath or pain. Heart rate is in the low 60s and 70s, patient is in atrial fibrillation. Hemodynamically stable. And she is doing better with incentive spirometry. Chest x-ray continues to show minimal left basilar atelectasis. Reevaluated today on 10/08/19, patient is doing fairly well, asymptomatic, chest x-ray is showing improvement, continues to have issues related to her intermittent episodes of cardiac arrhythmia. Patient is not requiring any inotropes. She is hemodynamically stable. Patient is presently in atrial fibrillation, she is on 2 L nasal cannula. And she is being considered for AICD placement next Thursday. Patient was reevaluated today on 10/09/19, remains in the ICU, but the patient is doing great. Sitting at a bedside chair, awake oriented 3, basically asymptomatic. Chest x-ray seems to be reassuring. Telemetry shows atrial fibrillation with left bundle branch block, rate is 84. O2 saturations 95% on 2 L. Doing much better with incentive spirometer. Objective - Vital Signs Vital signs: Vital Signs Temp 98.1 F 10/09/19 08:00 Pulse 88 10/09/19 12:16 Resp 18 10/09/19 12:16 BP 119/62 10/09/19 11:00 Pulse Ox 95 10/09/19 11:00 Intake & Output 10/08/19 10/09/19 10/09/19 18:59 06:59 18:59 Intake Total 500 600 300 Output Total 770 430 0 Balance -270 170 300 Intake: IV 350 600 300 0.9 350 600 300 Oral 150 Output: Urine 770 430 0 Other: Voiding Method Bedside Commode Bedside Commode Bedside Commode # Voids 0 1 ABP, PAP, CO, CI - Last Documented Arterial Blood Pressure 130/42 Pulmonary Artery Pressure 46/22 Cardiac Output 4.6 Cardiac Index 2.6 - Exam GENERAL EXAM: Revealed 68-year-old female in no distress. On 2 L nasal cannula. Head: Atraumatic, normocephalic. HEENT: PERRLA, EOMI, no icterus, no neck masses, no JVD. CHEST: No chest wall deformity. Diminished breath sounds at the bases no crackles or rhonchi and wheezes. CVS: Regular rate and rhythm, normal S1 and S2, no gallops, no murmurs, no rubs ABDOMEN: Soft, nontender. No hepatosplenomegaly, normal bowel sounds, no gua rding or rigidity. EXTREMITIES: No clubbing, no edema, no cyanosis, 2+ pulses and upper and lower extremities. MUSCULOSKELETAL: Muscle strength and tone normal. SPINE: No scoliosis or deformity SKIN: No rashes CENTRAL NERVOUS SYSTEM: Alert and oriented 3, no gross focal neurologic deficits. - Labs CBC & Chem 7: 10/09/19 06:02 10/09/19 06:02 Labs: Abnormal Lab Results - Last 24 Hours (Table) 10/08/19 10/08/19 10/08/19 Range/Units 13:52 16:19 20:51 WBC (3.8-10.6) k/uL RBC (3.80-5.40) m/uL Hgb (11.4-16.0) gm/dL Hct (34.0-46.0) % RDW (11.5-15.5) % Neutrophils # (1.3-7.7) k/uL Chloride (98-107) mmol/L BUN (7-17) mg/dL Creatinine (0.52-1.04) mg/dL POC Glucose (mg/dL) 170 H 204 H 147 H (75-99) mg/dL 10/09/19 10/09/19 10/09/19 Range/Units 06:02 06:02 11:51 WBC 13.0 H (3.8-10.6) k/uL RBC 2.48 L (3.80-5.40) m/uL Hgb 7.3 L (11.4-16.0) gm/dL Hct 22.6 L (34.0-46.0) % RDW 18.7 H (11.5-15.5) % Neutrophils # 9.4 H (1.3-7.7) k/uL Chloride 109 H (98-107) mmol/L BUN 54 H (7-17) mg/dL Creatinine 1.64 H (0.52-1.04) mg/dL POC Glucose (mg/dL) 167 H (75-99) mg/dL Assessment and Plan Assessment: Impression: Status post 1 vessel bypass, REYES to LAD and mitral valve repair postoperative day #6 Acute blood loss anemia, outcome of bypass surgery, this is expected. Acute on chronic congestive heart failure, systolic in nature. History of chronic kidney disease. Obstructive sleep apnea syndrome. Morbid obesity. Postoperative cardiac arrhythmia, presently in atrial fibrillation. History of diabetes, poorly controlled, patient is on insulin drip. Benign essential hypertension. Postoperative atelectasis, expected after surgery Previous stenting of LAD. Ischemic cardiomyopathy and LV dysfunction with ejection fraction of 35%. Pulmonary hypertension related to valvular heart disease. Recommendation: Continue incentive spirometry. Continue low-dose beta blockers Plavix and statins. Continue to wean oxygen as tolerated. Continue bronchodilators. Continue ambulation. Continue insulin for diabetes management. Continue pain control management. Possible AICD placement on Thursday We will continue to follow. Time with Patient: Less than 30
[2019-10-09 16:46] LABS: Glucose,Whole Blood 178 mg/dL (75-99)
[2019-10-09 19:46] LABS: Glucose,Whole Blood 128 mg/dL (75-99)
[2019-10-09] MEDS: SENNOSIDES-DOCUSATE SODIUM 1 EACH TAB PO SCH (20:09)
[2019-10-10] MEDS: HEPARIN SODIUM,PORCINE 5,000 UNIT/ML 1 ML VIAL SQ SCH ×3 (00:21→16:39)
[2019-10-10] MEDS: SODIUM CHLORIDE 0.9% 1,000 ML IV SCH (02:55)
[2019-10-10] MEDS: LEVOTHYROXINE 75 MCG TAB PO SCH (05:28)
[2019-10-10] MEDS: INSULIN DETEMIR (LEVEMIR) 100 UNIT/ML SYR SQ SCH ×2 (05:31→21:08)
[2019-10-10] MEDS: INSULIN ASPART (NovoLOG) 100 UNIT/ML VIAL SQ SCH ×6 (05:36→21:09)
[2019-10-10] MEDS ORDERED: ceFAZolin 1,000 MG in SODIUM CHLORIDE 0.9% IRRIGATIO 250 ML IRRIGATION ONE (06:00)
[2019-10-10] MEDS ORDERED: SODIUM CHLORIDE 0.9% 1,000 ML IV SCH ×2 (06:00)
[2019-10-10 06:15] LABS: Glucose,Whole Blood 95 mg/dL (75-99)
[2019-10-10] MEDS: PANTOPRAZOLE 40 MG TABLET PO SCH (06:24)
[2019-10-10] MEDS: FERROUS SULFATE 325 MG TAB PO SCH ×2 (06:24→18:01)
[2019-10-10 08:05] LABS: Calcium 8.9 mg/dL (8.4-10.2); Potassium 4.3 mmol/L (3.5-5.1)
--- NOTE | 2019-10-10 08:20 | P.PN ---
Subjective Progress Note Date: 10/10/19 Principal diagnosis: Single vessel coronary artery disease, severe functional mitral valve regurgitation with mild tricuspid valve regurgitation and heart failure. Past medical history significant for hypertension, coronary artery disease with previous stent placement to her proximal left anterior descending coronary artery in 2017, hyperlipidemia, insulin-dependent diabetes mellitus poorly controlled with a preoperative hemoglobin A1c of 10.7%, morbid obesity, stage III chronic kidney disease with a baseline creatinine of 1.5, obstructive sleep apnea, pulmonary hypertension and preoperative urinary tract infection of Klebsiella pneumoniae which was treated. POD #7 single coronary artery bypass grafting using the left internal mammary artery to left anterior descending coronary artery, mitral valve repair using a reduction annuloplasty with a 28 mm physio-II ring, exclusion of the left atrial appendage using a 45 mm Atriclip, intraoperative graft flow measurements using the [employer] sytem, intraoperative epi-aortic scanning and transesophageal echocardiogram. Postoperative acute blood loss anemia, an expected outcome secondary to cardiopulmonary bypass and hemodilution. Postoperative second-degree type 2/third-degree heart block, an unexpected but potential outcome of surgery. Postoperative paroxysmal atrial fibrillation, an unexpected but potential out come of surgery. The patient was seen today 10/10/2019 at her bedside in the intensive care unit. The patient sitting up to the bedside chair, is alert, oriented 3 and is in no acute apparent distress. She remained hemodynamically stable and is currently on no on trophic her pressure support. She does have 0.9% normal saline infusing at 50 mL per hour for preop biventricular AICD placement orders. Denies any complaints of pain or shortness of breath at this time. Oxygen saturations are 98% on 2 L nasal cannula and she is achieving 750-1000 mL on her incentive spirometry. Bedside telemetry shows normal sinus rhythm with occasional paced beats and a left bundle branch block heart rate 62. Currently she is nothing by mouth and is scheduled for a biventricular AICD placement today to be performed by Dr. Kendall. A 2-D echo was completed on 10/08/2019 which demonstrated an overall left ventricular systolic function severely impaired with an ejection fraction less than 20%, mild mitral valve regurgitation, mild to moderate tricuspid valve regurgitation and trace to mild pulmonic valve regurgitation. Objective - Vital Signs Vital signs: Vital Signs Temp 97.4 F L 10/10/19 04:00 Pulse 62 10/10/19 06:00 Resp 17 10/10/19 06:00 BP 104/55 10/10/19 06:00 Pulse Ox 100 10/10/19 06:00 Intake & Output 10/09/19 10/10/19 10/10/19 18:59 06:59 18:59 Intake Total 500 360 50 Output Total 450 775 Balance 50 -415 50 Weight 92.8 kg Intake: IV 400 150 50 0.9 400 100 Sodium Chloride 0.9% 1, 50 50 000 ml @ 50 mls/hr IV . Q20H [facility] Rx#:[id number] Oral 100 210 Output: Urine 450 775 Other: Voiding Method Bedside Commode Bedside Commode # Voids 1 1 # Bowel Movements 1 ABP, PAP, CO, CI - Last Documented Arterial Blood Pressure 130/42 Pulmonary Artery Pressure 46/22 Cardiac Output 4.6 Cardiac Index 2.6 - Exam This is a pleasant 68-year-old female patient who is sitting up to the bedside chair in the intensive care unit. She is in no apparent acute distress, she is awake, alert and oriented 3. Oxygen saturation are 98 % on 2 L nasal cannula. - Constitutional General appearance: Present: cooperative, morbidly obese, no acute distress - EENT Eyes: Absent: scleral icterus ENT: Present: hearing grossly normal - Neck Details: Neck is supple, no JVD. - Respiratory Details: Lung sounds are essentially clear throughout, diminished bilateral bases. No wheezes, rhonchi or crackles. Respirations are symmetrical and nonlabored. Oxygen saturation are 98% on 2 L nasal cannula. Achieving 750-1000 mL on her incentive spirometry. - Cardiovascular Details: Regular rhythm and rate. S1 and S2 present, negative for S3, gallop or murmur. Sternum is stable. Heart hugger is in place and she is demonstrating appropriate use with encouragement. Atrial and ventricular epicardial pacemaker wires in place and connected to back up to bedside pacemaker generator with a VVI 50. Bedside telemetry showing normal sinus rhythm with occasional ventricular paced beats and a left bundle branch block heart rate 62 BPM. Knee- high KARTHIKEYAN hose and sequential compression devices in place to bilateral lower extremities. - Gastrointestinal Gastrointestinal Comment(s): Abdomen is soft, nontender and nondistended. Active bowel sounds present all 4 abdominal quadrants. No guarding or rigidity. No organomegaly appreciated. Nothing by mouth at this time. Bowel movement this a.m. - Genitourinary Genitourinary Comment(s): Voiding clear christine urine. - Integumentary Integumentary Comment(s): Skin is warm and dry. No clubbing or cyanosis is present. Midline sternal incision is clean, dry and approximated. No drainage or redness is present. Gauze dressing is clean, dry and in place. - Neurologic Neurologic: Present: CNII-XII intact - Musculoskeletal Musculoskeletal: Present: gait normal, generalized weakness, strength equal bilaterally - Psychiatric Psychiatric Comment(s): Flat affect. Psychiatric: Present: A&O x's 3, intact judgment & insight - Allied health notes Allied health notes reviewed: nursing - Labs CBC & Chem 7: 10/09/19 06:02 10/09/19 06:02 Labs: Abnormal Lab Results - Last 24 Hours (Table) 10/09/19 10/09/19 10/09/19 Range/Units 11:51 16:44 19:45 POC Glucose (mg/dL) 167 H 178 H 128 H (75-99) mg/dL Assessment and Plan Assessment: 1. Single-vessel coronary artery disease, status post single vessel coronary artery bypass grafting REYES to the left anterior descending coronary artery 2. Severe functional mitral valve regurgitation, status post mitral valve repair using a reduction annuloplasty with a 28 mm physio-II ring 3. Mild tricuspid valve regurgitation 4. Acute on chronic systolic heart failure, with a preoperative ejection fraction of 35-40% 5. History of coronary artery disease with previous stent placement to her left anterior descending coronary artery in 2017 6. Hypertension 7. Dyslipidemia 8. Poorly controlled insulin-dependent diabetes mellitus with a preoperative hemoglobin A1c of 10.7% 8. Ischemic cardiomyopathy 9. Pulmonary hypertension, likely related to valvular disease 10. Stage III chronic kidney disease with a baseline creatinine of 1.5 11. Obstructive sleep apnea 12. Preoperative urinary tract infection of Klebsiella pneumoniae, treated 13. Morbid obesity 14. Postoperative acute blood loss anemia 15. Postoperative second-degree type 2/third-degree heart block, an unexpected but potential outcome of surgery 16. Postoperative paroxysmal atrial fibrillation, an unexpected but potential outcome of surgery Plan: 1. Continue aspirin, statin, Plavix, and beta anaid. 2. Encourage incentive spirometry 10 times every hour while awake. 3. Bronchodilators per pulmonology management. 4. Increase activity, out of bed for all meals. PT/OT/cardiac rehab following. 5. Will monitor daily labs and chest x-rays. Electrolyte replacement per protocol. 6. Pain controlled current medication regimen. Avoid Toradol due to the patient's renal function. 7. Insulin management per primary care service. 8. When she has her biventricular ICD placed we will remove her atrial and ventricular epicardial pacemaker wires. Keep atrial and ventricular epicardial pacemaker wires connected to back up to bedside pacemaker generator at a VVI 50 until biventricular ICD was placed. 9. Heart rate management per Dr. Kendall and cardiology. We will start the patient on anticoagulation after her epicardial pacemaker wires have been removed. The patient is scheduled for biventricular ICD today Thursday10/10/2019 to be performed by Dr. Kendall. No EKG patches to her left pectoral, left neck or axilla area. Clean left pectoralis area daily with CHG prep. 10. Continue Cozaar 25 mg by mouth daily at noon and Aldactone 12.5 mg by mouth daily for afterload reduction. 11. Continue amiodarone 400 mg by mouth twice a day for atrial fibrillation prophylaxis. 12. Discharge planning is in place, anticipate need for inpatient rehab upon discharge. 13. Continue IV fluids 0.9% normal saline at 50 mL per hour. 14. More recommendations to follow based on patient's clinical course. Time with Patient: Greater than 30
[2019-10-10] MEDS: IPRATROPIUM-ALBUTEROL 3 ML NEB INHALATION SCH ×4 (08:28→19:38)
[2019-10-10 08:29] LABS: Anisocytosis Slight; Basophils # (A) 0.1 k/uL (0-0.2); Basophils % (A) 0 %; Eosinophils # (A) 0.5 k/uL (0-0.7); Eosinophils % (A) 3 %; HGB 7.2 gm/dL (11.4-16.0); Hypochromasia Slight; Lymphocytes # (A) 2.2 k/uL (1.0-4.8); Lymphocytes % (A) 13 %; MCHC 31.6 g/dL (31.0-37.0); Mean Platelet Volume 7.6; Monocytes # (A) 0.7 k/uL (0-1.0); Monocytes % (A) 4 %; Neutrophils # (A) 13.6 k/uL (1.3-7.7); Neutrophils % (A) 79 %; Platelet Count 332 k/uL (150-450); WBC 17.1 k/uL (3.8-10.6)
--- NOTE | 2019-10-10 08:59 | P.PN ---
Subjective Progress Note Date: 10/10/19 Principal diagnosis: Status post CABG, mitral valve repair, postoperative day #7 68-year-old of Dr. Moore, with past medical history of coronary artery disease with previous stenting of the LAD in 2017, hypertension, hyperlipidemia, insulin-dependent diabetes mellitus, morbid obesity, stage III chronic kidney disease, pulmonary hypertension, family history of hypertension and diabetes. Patient was hospitalized last November 2018 when she presented with complaints of severe, constant, sharp chest pain with left arm radiation. Patient had echocardiogram that showed a moderately impaired LV function with EF of 35-40%, mild aortic regurgitation, mild mitral annular calcification and moderate to severe mitral regurgitation. There was evidence of severe pulmonary hyperten aniyah and moderate tricuspid regurg. Patient went on to have cardiac catheterization that showed LAD stenosis of 70% in the proximal portion. [place] showed EF of 35-40%, severe mitral regurgitation, with a dilated annulus and poor coaptation of the mitral leaflets and moderate to severe tricuspid regu rgitation. She was referred to CT surgery for surgical evaluation, and it took her several months to obtain dental clearance, and optimize her diabetes. Today on 10/03/2019 patient had a one-vessel bypass with REYES to LAD, and mitral valve repair, his occlusion of the left atrial appendage. She is seen in the postoperative period in the intensive care unit, she is intubated, sedated on mechanical ventilator, current vent settings assist control mode with a rate of 16, tidal vital 350, FiO2 50% and PEEP of 8. Current drips include 0.9 normal saline at a rate of 50, Primacor at 0.3 mics per kilo per minute, levo fed at 0.04 mics per kilo per minute, insulin drip, and Diprivan at 20 mics per kilo per minute. PA pressure is 48/27, CVP 13, cardiac output and index are 4.6 and 2.6 respectively, AV wires in place, patient is on VVI Mode and is currently pacing at 100%. 2 mediastinal chest tubes with 130 mL of sanguinous output, left pleural and right pleural with 120 and 50 ML of sanguinous output respectively. Postop blood work shows a white blood cell count of 12.3, hemoglobin of 8.7, sodium is 136, the rest of electrolytes are within normal limits, BUN 62 and creatinine is 1.74. Patient was reevaluated today on 10/04/19, patient was extubated around 4 AM this morning. He tolerated the extubation quite well. Presently on IV fluid at 50 mL per hour. Patient has intermittent episodes of confusion. Remains on Primacor at 0. one 5 mcg/kg/m. Patient is paced with VVI pacemaker at 50 bpm. Her cardiac index is 2.8, cardiac output is 5 CVP is 10. Chest x-ray showed minimal atelectasis at the bases. Patient had REYES to LAD, mitral valve repair and she again she is postoperative day #1. Patient is on 6 L high flow nasal cannula. O2 saturations 98%. Achieving 500 mL on her incentive spirometer. She has noted some surgical type of pain at the side of her chest tube insertion, and mostly when taking a deep breath. Denies shortness of breath. Mediastinal right and left pleural chest tubes remain in place. On continuous wall suction. No air leak. Draining thin serosanguineous drainage with the 130 mL output in the last 8 hours and 300 mL output since surgery from the mediastinal chest tubes. Patient was reevaluated today on 10/05/19, patient remains sitting in bed, doing well, no specific complaints. She is oriented [address] mostly [address] and place. Not oriented to time. Denies any complaints, she has some vague chest pain upon taking a deep breath. She is hemodynamically stable, not requiring any pressors. Her cardiac index is 2.6, cardiac output is 4.6. CVP is 14. Chest x-ray showed minimal atelectasis at the bases especially at the left base. Patient remains on 4 L nasal cannula, and O2 saturations 96%. She is achieving about 500 MLS her incentive spirometer. Her mediastinal left and right pleural chest tubes remained in place, no air leak noted. Drainage was noted, amount is becoming less and less over the last 2 days. She had a T-max of 99.7. Otherwise the patient is doing great. She does seem to be globally weak Patient was reevaluated today on 10/06/19, remains in the ICU, patient is sitting in a recliner. Denies any shortness of breath, no cough no wheezing, presently she has sinus rhythm and a second-degree AV block, hemodynamically stable, not requiring any pressors and at night she went into controlled atrial fib rillation. Placed on amiodarone and she remains on protocol this morning. Dr. Tavarez was consulted regarding her arrhythmia. He is recommending switching patient to oral amiodarone. Low-dose beta blockers and possibly eventually placed the patient back on her Coreg twice a day. No plans at least at this point to place a permanent pacer. He will assess the patient on outpatient basis chest x-ray today showed mostly left basilar atelectasis. Reevaluated today on 11/03/19, patient is doing quite well. Remains in the ICU, in no distress, denies any shortness of breath or pain. Heart rate is in the low 60s and 70s, patient is in atrial fibrillation. Hemodynamically stable. And she is doing better with incentive spirometry. Chest x-ray continues to show minimal left basilar atelectasis. Reevaluated today on 10/08/19, patient is doing fairly well, asymptomatic, chest x-ray is showing improvement, continues to have issues related to her intermittent episodes of cardiac arrhythmia. Patient is not requiring any inotropes. She is hemodynamically stable. Patient is presently in atrial fibrillation, she is on 2 L nasal cannula. And she is being considered for AICD placement next Thursday. Patient was reevaluated today on 10/09/19, remains in the ICU, but the patient is doing great. Sitting at a bedside chair, awake oriented 3, basically asymptomatic. Chest x-ray seems to be reassuring. Telemetry shows atrial fibrillation with left bundle branch block, rate is 84. O2 saturations 95% on 2 L. Doing much better with incentive spirometer. On 10/10/2019 patient is seen in follow-up in the intensive care unit, she is awake and alert, in no acute distress, she is resting comfortably in bed, she is currently on 2 L of oxygen, her pulse ox is 9200%, vital signs are stable, she is afebrile, she is in sinus mechanism on the monitor, with a rate of 62. No acute events overnight, her chest tubes have been discontinued, her AV wires are in place connected to external pacemaker with backup rate of 50, intrinsic rhythm is sinus, with a rate of 62. Patient has been nothing by mouth since midnight, she is scheduled for pacemaker/AICD placement today, she denies any pulmonary complaints, denies any shortness of breath, her pain is under good control, lung sounds are clear to auscultation, patient is working on incentive spirometer, effort to the 750 ML. Today's chest x-ray has been reviewed showing subsegmental areas of consolidation bilaterally that are stable in appearance and likely related to postoperative atelectasis. These labs have been reviewed showing white blood cell, 17.1, hemoglobin of 7.2, electrolytes are within normal limits, BUN of 55 and creatinine is 1.76. Patient has been tolerating ambulation in the hallway. Objective - Vital Signs Vital signs: Vital Signs Temp 98.7 F 10/10/19 08:00 Pulse 75 10/10/19 08:40 Resp 22 10/10/19 08:00 BP 120/64 10/10/19 08:00 Pulse Ox 97 10/10/19 08:00 Intake & Output 10/09/19 10/10/19 10/10/19 18:59 06:59 18:59 Intake Total 500 360 50 Output Total 450 775 Balance 50 -415 50 Weight 92.8 kg Intake: IV 400 150 50 0.9 400 100 Sodium Chloride 0.9% 1, 50 50 000 ml @ 50 mls/hr IV . Q20H [facility] Rx#:[id number] Oral 100 210 Output: Urine 450 775 Other: Voiding Method Bedside Commode Bedside Commode # Voids 1 1 # Bowel Movements 1 ABP, PAP, CO, CI - Last Documented Arterial Blood Pressure 130/42 Pulmonary Artery Pressure 46/22 Cardiac Output 4.6 Cardiac Index 2.6 - Exam GENERAL EXAM: Alert, very pleasant, 68-year-old female, on 2 L of oxygen with pulse ox of 9800%, comfortable in no apparent distress. HEAD: Normocephalic/atraumatic. EYES: Normal reaction of pupils, equal size. Conjunctiva pink, sclera white. NOSE: Clear with pink turbinates. THROAT: No erythema or exudates. NECK: No masses, no JVD, no thyroid enlargement, no adenopathy. CHEST: No chest wall deformity. Symmetrical expansion. Midsternal incision, clean dry and intact, chest tube sites are clean dry and intact, AV wires in place, connected to an external pacemaker with a backup rate of 50, intrinsic rhythm is sinus rhythm with a right lung base clinic with a rate of 62 BPM LUNGS: Equal air entry with no crackles, wheeze, rhonchi or dullness. CVS: Regular rate and rhythm, normal S1 and S2, no gallops, no murmurs, no rubs ABDOMEN: Soft, nontender. No hepatosplenomegaly, normal bowel sounds, no guarding or rigidity. EXTREMITIES: No clubbing, no edema, no cyanosis, 2+ pulses and upper and lower extremities. MUSCULOSKELETAL: Muscle strength and tone normal. SPINE: No scoliosis or deformity SKIN: No rashes CENTRAL NERVOUS SYSTEM: Alert and oriented -3. No focal deficits, tone is normal in all 4 extremities. PSYCHIATRIC: Alert and oriented -3. Appropriate affect. Intact judgment and insight. - Labs CBC & Chem 7: 10/10/19 07:16 10/10/19 07:16 Labs: Abnormal Lab Results - Last 24 Hours (Table) 10/09/19 10/09/19 10/09/19 Range/Units 11:51 16:44 19:45 WBC (3.8-10.6) k/uL RBC (3.80-5.40) m/uL Hgb (11.4-16.0) gm/dL Hct (34.0-46.0) % RDW (11.5-15.5) % Neutrophils # (1.3-7.7) k/uL BUN (7-17) mg/dL Creatinine (0.52-1.04) mg/dL POC Glucose (mg/dL) 167 H 178 H 128 H (75-99) mg/dL 10/10/19 10/10/19 Range/Units 07:16 07:16 WBC 17.1 H (3.8-10.6) k/uL RBC 2.50 L (3.80-5.40) m/uL Hgb 7.2 L (11.4-16.0) gm/dL Hct 23.0 L (34.0-46.0) % RDW 19.0 H (11.5-15.5) % Neutrophils # 13.6 H (1.3-7.7) k/uL BUN 55 H (7-17) mg/dL Creatinine 1.76 H (0.52-1.04) mg/dL POC Glucose (mg/dL) (75-99) mg/dL Assessment and Plan Plan: Assessment: #1. Coronary artery disease, severe mitral regurgitation, status post 1 vessel bypass REYES to LAD, and mitral valve repair, left atrial appendage exclusion, postoperative day 6 #2. Chronic congestive heart failure, systolic in nature #3. Post-op of cardiac arrhythmia, presently in sinus mechanism with right bundle branch block, and placement of pacemaker/AICD #4. Acute blood loss anemia, expected outcome of bypass and mitral valve repair surgery #5 Chronic kidney disease #6. Recent history of urinary tract infection, with urine culture positive for Klebsiella pneumonia treated with ciprofloxacin #7. Normal preop spirometry with FEV1 of 92% of predicted #8. History of diabetes mellitus, poorly controlled #9. Hypertension #10. Hyperlipidemia #11. Previous stenting of the LAD 2017 #12. Ischemic cardiomyopathy with LV function of 35-40% #13. Pulmonary hypertension likely related to valvular heart disease #14. Family history of hypertension and diabetes Plan: Hemodynamic patient remains stable, currently in sinus rhythm, she is awaiting surgery for placement of permanent pacemaker/AICD today by Dr. Tavarez. No acute events overnight, denies any shortness of breath, and tolerating ambulation, today's chest x-ray has been reviewed showing postoperative atelectasis, wean FiO2. Continue nebulized treatments, continue encouraging deep breathing and coughing, GI and DVT prophylaxis per CT surgery. We'll continue to closely follow I performed a history & physical examination of the patient and discussed their management with my nurse practitioner, Ashlee Elaine. I reviewed the nurse practitioner's note and agree with the documented findings and plan of care. Lung sounds are positive for diminished breath sounds. The findings and the imp ression was discussed with the patient. I attest to the documentation by the nurse practitioner. Time with Patient: Less than 30
[2019-10-10 09:18] LABS: Appearance,Urine Clear (Clear); Bilirubin,Urine Negative (Negative); Blood,Urine Negative (Negative); Color,Urine Yellow; Glucose,Urine (UA) Negative (Negative); Ketones,Urine Negative (Negative); Leukocyte Esterase,Urine Negative (Negative); Nitrite,Urine Negative (Negative); Protein,Urine Negative (Negative); Specific Gravity,Urine 1.009 (1.001-1.035); Urobilinogen,Urine <2.0 mg/dL (<2.0)
[2019-10-10] MEDS: CITALOPRAM HYDROBROMIDE 20 MG TAB PO SCH (09:59)
[2019-10-10] MEDS: METOPROLOL TARTRATE 12.5 MG TAB PO SCH ×2 (09:59→22:41)
[2019-10-10] MEDS: ASPIRIN 325 MG TAB PO SCH (09:59)
[2019-10-10] MEDS: SPIRONOLACTONE 25 MG TAB PO SCH (09:59)
[2019-10-10] MEDS: ATORVASTATIN 40 MG TAB PO SCH (10:00)
[2019-10-10] MEDS: CLOPIDOGREL 75 MG TAB PO SCH (10:00)
[2019-10-10] MEDS: AMIODARONE 200 MG TAB PO SCH ×2 (10:00→21:13)
[2019-10-10] MEDS: allopurinoL 300 MG TAB PO SCH (10:26)
[2019-10-10 11:49] LABS: Glucose,Whole Blood 124 mg/dL (75-99)
[2019-10-10] MEDS ORDERED: ANIDULAFUNGIN 200 MG in SODIUM CHLORIDE 0.9% 200 ML IVPB ONE (12:22)
[2019-10-10] MEDS: LOSARTAN 25 MG TAB PO SCH (13:43)
[2019-10-10] MEDS: NYSTATIN 100,000 UNIT/ML SUSP 500,000 UNIT/5 ML CUP PO SCH ×3 (13:43→21:30)
[2019-10-10] MEDS ORDERED: bisacodyL 10 MG SUPP RECTAL STA (14:18)
--- NOTE | 2019-10-10 15:25 | P.PN ---
Subjective 68 years old female with past medical history of coronary artery disease, heart failure status post stent placement, diabetes mellitus, GERD, hypertension, hyperlipidemia, sleep apnea on CPAP/BiPAP, hypothyroidism. She is a status post 1 vessel bypass surgery and today postop day #1. She also got extubated today and currently she is on nasal cannula at 4 L/m was saturating 95-98%, patient denies chest pain or dyspnea except as surgical site which is expected. Rest of Vitas looks stable. Labs reviewed showed mild leukocytosis of 12 K, INR is normal, sugar controlled, creatinine 1.9 (baseline 1.4-2.0) Chest x-ray: Improved radiation Patient is currently on aspirin, metoprolol, oral levothyroxine, Protonix 10/05/2019 Patient remains in the ICU with no chest pain or dyspnea. However today her blood pressure dropped with physical therapy session went down to 80/40, patient brought back on lying position in the chair, she was fully awake and oriented however she looked pale with no chest pain or dyspnea. Recheck blood pressure show improvement, please see records. Progressive vitals are stable. Sugar controlled 141-152 today her chest tube and swelling Came out 10/06/2019 Patient is awake and alert, looks tired but she denies chest pain or dyspnea and vitals are stable. Sugar controlled and WBC is trending down to 11.6 K. Creatinine down to 1.7. Patient was on insulin drip which could be stopped, patient is eating. Resume her Levemir 15 units twice a day (was 22 units at home) and 3 units with meals (was 6 units at home), keep insulin sliding scale. Cardiology team also following the case today. 10/07/2019 Patient is up in chair, no dizziness, blood pressure is a stable at 117/66. No postural symptoms. She was sitting and eating in bed with no difficulty. She still have some pain in the surgical site which is expected. Mild Leukocytosis of 12.4 K. Creatinine 1.8 him at baseline. Sugar control, continue with same regimen 10/08/19 Patient is in chair, no chest pain, no dizziness. Breathing quietly. Vitas looks stable and blood pressure 109/63, heart rate is 77 beats per minute which is sinus. She is eating well and tolerating that well however she has constipation and ask for some laxative WBC is 11.4 K,, creatinine at baseline 1.7 Dr. Coppola evaluated patient for possible inpatient rehab, patient agrees Patient may be considered for transfer to general medical floor 10/09/2019 Patient lying comfortable in bed, no chest pain or dyspnea, she is tolerating diet well. Vitals are stable. WBC is trending down to 13 K, hemoglobin 7.3, creatinine is improving to 1.6. Chest x-ray: subsegmental areas of consolidation by laboratory are stable, related to postoperative atelectasis Patient has been having periods of bradycardia with digital solutions architect evaluated patient and found her with bradycardia, periods of A. fib and with left bundle branch block and prolonged ID interval, with planning for placement of AICD device on Thursday Patient remains in the ICU for now 10/10/2019 Patient will be going for permanent pacemaker and AICD placement today patient had any of of around 20%. Patient does have leukocytosis. Patient was a evaluated by infectious disease no fever at this time. Patient was started on antifungal medications by infectious disease Constitutional: Denied any fatigue denied any fever. Cardio vascular: denied any chest pain, palpitations Gastrointestinal denied any nausea vomiting Pulmonary: Denied any shortness of breath cough Neurologic denied any new focal deficits All inpatient medications were reviewed and appropriate changes in these medications as dictated in the interval history and assessment and plan. Objective - Vital Signs Vital signs: Vital Signs Temp 98.7 F 10/10/19 08:00 Pulse 69 10/10/19 14:00 Resp 22 10/10/19 14:00 BP 123/97 10/10/19 14:00 Pulse Ox 96 10/10/19 14:00 Intake & Output 10/09/19 10/10/19 10/10/19 18:59 06:59 18:59 Intake Total 500 360 250 Output Total 450 775 600 Balance 50 -415 -350 Weight 92.8 kg Intake: IV 400 150 200 0.9 400 100 Sodium Chloride 0.9% 1, 50 200 000 ml @ 50 mls/hr IV . Q20H [facility] Rx#:[id number] Oral 100 210 50 Output: Urine 450 775 600 Other: Voiding Method Bedside Commode Bedside Commode Bedside Commode # Voids 1 2 # Bowel Movements 1 2 ABP, PAP, CO, CI - Last Documented Arterial Blood Pressure 130/42 Pulmonary Artery Pressure 46/22 Cardiac Output 4.6 Cardiac Index 2.6 - Exam GENERAL: The patient is alert and oriented x3, not in any acute distress. Well developed, well nourished. HEENT: Pupils are round and equally reacting to light. EOMI. No scleral icterus. No conjunctival pallor. Normocephalic, atraumatic. No pharyngeal erythema. No thyromegaly. -CARDIOVASCULAR: S1 and S2 present. No murmurs, rubs, or gallops. Sternal wound is in a dressing PULMONARY: Chest is clear to auscultation, no wheezing or crackles. ABDOMEN: Soft, nontender, nondistended, normoactive bowel sounds. No palpable organomegaly. MUSCULOSKELETAL: No joint swelling or deformity. EXTREMITIES: No cyanosis, clubbing, or pedal edema. NEUROLOGICAL: Gross neurological examination did not reveal any focal deficits. SKIN: No rashes. No petechiae - Labs CBC & Chem 7: 10/10/19 07:16 10/10/19 07:16 Labs: Abnormal Lab Results - Last 24 Hours (Table) 10/09/19 10/09/19 10/10/19 Range/Units 16:44 19:45 07:16 WBC 17.1 H (3.8-10.6) k/uL RBC 2.50 L (3.80-5.40) m/uL Hgb 7.2 L (11.4-16.0) gm/dL Hct 23.0 L (34.0-46.0) % RDW 19.0 H (11.5-15.5) % Neutrophils # 13.6 H (1.3-7.7) k/uL BUN (7-17) mg/dL Creatinine (0.52-1.04) mg/dL POC Glucose (mg/dL) 178 H 128 H (75-99) mg/dL 10/10/19 10/10/19 Range/Units 07:16 11:47 WBC (3.8-10.6) k/uL RBC (3.80-5.40) m/uL Hgb (11.4-16.0) gm/dL Hct (34.0-46.0) % RDW (11.5-15.5) % Neutrophils # (1.3-7.7) k/uL BUN 55 H (7-17) mg/dL Creatinine 1.76 H (0.52-1.04) mg/dL POC Glucose (mg/dL) 124 H (75-99) mg/dL Assessment and Plan Plan: coronary artery disease, status post 1 vessel bypass surgery Cardiac arrhythmia with periods of A. fib, bradycardia, left bundle branch block and Hypertension Diabetes mellitus Hyperlipidemia chronic kidney disease, stage III -Congestive heart failure chronic systolic dysfunction EF of around 20% with some acute exacerbation: Patient is going for pacemaker placement today History of coronary artery disease, status post stent placement GERD Severe mitral regurgitation, severe tricuspid regurgitation Severe pulmonary hypertension Hypothyroidism Sleep apnea on CPAP/BiPAP chronic
--- NOTE | 2019-10-10 15:53 | P.PN ---
Subjective Progress Note Date: 10/10/19 This is a 68-year-old female with history of single-vessel coronary artery disease and mitral regurgitation, status post bypass surgery and mitral valve repair. Patient also has underlying atrial fibrillation with left bundle-branch block pattern. Patient developed bradycardia after she was treated with IV amiodarone. Patient is off amiodarone at this time. She is a small dose of beta anaid. Her heart rate is controlled without any significant bradyarrhythmias. Patient is sitting up in the chair and seems to be stable. Complain some mild chest pain but no shortness of breath. Lungs show some diminished breath sounds at bases and few rhonchi. Heart is irregular. Overall patient's critical status seemed to be stable. We'll continue current medical therapy. Increase activity and possible transfer to telemetry unit. Continue monitoring for any significant bradyarrhythmias. 10/08/2019: This patient seemed to be much stable. Patient is back in sinus rhythm. Denies any significant chest pain or shortness of breath. Tolerating activity. No other arrhythmias. She is only on beta anaid. Lungs sound clear. Heart is regular. Patient urine output is good with a negative balance of more than a liter. Patient could be transferred to telemetry unit. Hopefully discharge within next 24-48 hours 10/09/2019:his 68-year-old female is status post bypass surgery and mitral valve repair. Seemed to be feeling better. Complains of mild soreness in the chest from her incisions. Denies any significant shortness of breath. Continues to use temporary pacemaker. She is scheduled to have AICD and by ventricle pacemaker tomorrow. Patient doesn't have underlying left bundle-branch block. All LV function is impaired. Otherwise, systemic clinically stable. Continue current medical therapy. He had 10/10/2019: This patient was scheduled to have AICD with biventricular pace maker. However, patient developed signs of sepsis with white count elevation. The procedure was canceled for today. Patient is being treated with antibiotics. Patient is still in sinus rhythm with intermittent atrial fibrillation. With the evidence of sinus pauses and Mobitz type I block. We'll continue to monitor her closely. Patient still has a pacemaker wires. If she needs to wait for a long time, patient may need external temporary pacemaker. Objective - Vital Signs Vital signs: Vital Signs Temp 98.7 F 10/10/19 08:00 Pulse 69 10/10/19 14:00 Resp 22 10/10/19 14:00 BP 123/97 10/10/19 14:00 Pulse Ox 96 10/10/19 14:00 Intake & Output 10/09/19 10/10/19 10/10/19 18:59 06:59 18:59 Intake Total 500 360 280 Output Total 450 775 600 Balance 50 -415 -320 Weight 92.8 kg Intake: IV 400 150 210 0.9 400 100 Sodium Chloride 0.9% 1, 50 210 000 ml @ 50 mls/hr IV . Q20H [facility] Rx#:[id number] Oral 100 210 70 Output: Urine 450 775 600 Other: Voiding Method Bedside Commode Bedside Commode Bedside Commode # Voids 1 2 # Bowel Movements 1 2 ABP, PAP, CO, CI - Last Documented Arterial Blood Pressure 130/42 Pulmonary Artery Pressure 46/22 Cardiac Output 4.6 Cardiac Index 2.6 - Exam GENERAL EXAM: Patient is alert and oriented and doesn't appear to be in any acute distress HEENT: Normocephalic. Normal reaction of pupils, equal size, normal range of extraocular motion. No erythema or exudates in the throat. NECK: No masses, no nuchal rigidity. CHEST: No chest wall deformity. LUNGS: Diminished breath sounds at bases HEART: S1 and S2 normal. Regular rhythm ABDOMEN: No hepatosplenomegaly, normal bowel sounds, no guarding or rigidity. SKIN: No rashes CENTRAL NERVOUS SYSTEM: No focal deficits. EXTREMITIES: No cyanosis, clubbing or edema. - Labs CBC & Chem 7: 10/10/19 07:16 10/10/19 07:16 Labs: Abnormal Lab Results - Last 24 Hours (Table) 10/09/19 10/09/19 10/10/19 Range/Units 16:44 19:45 07:16 WBC 17.1 H (3.8-10.6) k/uL RBC 2.50 L (3.80-5.40) m/uL Hgb 7.2 L (11.4-16.0) gm/dL Hct 23.0 L (34.0-46.0) % RDW 19.0 H (11.5-15.5) % Neutrophils # 13.6 H (1.3-7.7) k/uL BUN (7-17) mg/dL Creatinine (0.52-1.04) mg/dL POC Glucose (mg/dL) 178 H 128 H (75-99) mg/dL 10/10/19 10/10/19 Range/Units 07:16 11:47 WBC (3.8-10.6) k/uL RBC (3.80-5.40) m/uL Hgb (11.4-16.0) gm/dL Hct (34.0-46.0) % RDW (11.5-15.5) % Neutrophils # (1.3-7.7) k/uL BUN 55 H (7-17) mg/dL Creatinine 1.76 H (0.52-1.04) mg/dL POC Glucose (mg/dL) 124 H (75-99) mg/dL Assessment and Plan (1) Status post aorto-coronary artery bypass graft Current Visit: Yes Status: Acute Code(s): Z95.1 - PRESENCE OF AORTOCORONARY BYPASS GRAFT SNOMED Code(s): 085630424 (2) Status post mitral valve repair Current Visit: Yes Status: Acute Code(s): Z98.890 - OTHER SPECIFIED POSTPROCEDURAL STATES SNOMED Code(s): 866233664 (3) Left bundle branch block Current Visit: Yes Status: Acute Code(s): I44.7 - LEFT BUNDLE-BRANCH BLOCK, UNSPECIFIED SNOMED Code(s): 82651165 (4) Atrial fibrillation Current Visit: Yes Status: Acute Code(s): I48.91 - UNSPECIFIED ATRIAL FIBRILLATION SNOMED Code(s): 37599748 (5) Bradycardia Current Visit: Yes Status: Acute Code(s): R00.1 - BRADYCARDIA, UNSPECIFIED SNOMED Code(s): 06512164 Plan: Procedure for today is canceled. We'll continue to monitor his critical status
[2019-10-10 16:44] LABS: Glucose,Whole Blood 206 mg/dL (75-99)
[2019-10-10 20:29] LABS: Glucose,Whole Blood 221 mg/dL (75-99)
[2019-10-10] MEDS: SENNOSIDES-DOCUSATE SODIUM 1 EACH TAB PO SCH (21:08)
--- NOTE | 2019-10-10 23:11 | P.CONS ---
History of Present Illness - Reason for Consult Consult date: 10/10/19 Leukocytosis Requesting physician: Madai Sawant - Chief Complaint Weakness x few days - History of Present Illness Patient is 68-year-old female presented to the hospital on 10/03/2019 for an elective coronary bypass grafting times one and mitral valve repair, hoa palencia has been in the hospital for the last 7 days after surgery patient did have mildly elevated white count of 12,000 the day of presentation hospital and she was noticed to have progressive upward trend of the white count to 17,000 today, patient has no fever during this hospital stay, patient denies having any headache or URI symptoms; that of some shortness of breath on exertion and a single chest pain but no worsening patient denies having any cough or sputum production no nausea no vomiting no abdominal pain no diarrhea , rather he patient did have constipation and received Gifty to afterwards patient seemed to have small frequent bowel movements today infectious disease was consulted with concern for elevated white count patient did have a UA that was negative and the patient's chest x-ray did show bilateral basilar atelectasis no evidence of any consolidation or pneumonia Review of Systems Positive point has been mentioned in the HPI rest of the systems are negative Past Medical History Past Medical History: Coronary Artery Disease (CAD), Chest Pain / Angina, Heart Failure, Diabetes Mellitus, Eye Disorder, GERD/Reflux, Hyperlipidemia, Hypertension, Myocardial Infarction ([place]), Renal Disease, Sleep Apnea/CPAP/BIPAP, Thyroid Disorder Additional Past Medical History / Comment(s): Right cataract, Not using CPAP, admission in June for CHF exacerbation Last Myocardial Infarction Date:: 03/31/2015 History of Any Multi-Drug Resistant Organisms: None Reported Past Surgical History: Breast Surgery, Heart Catheterization, Heart Catheterization With Stent Additional Past Surgical History / Comment(s): Left breast bx-neg, buttocks sx- pt stated:" they told me I had gangrene and had sx to remove", lt cataract, several cardiac cath's.-most recent 2018 Past Anesthesia/Blood Transfusion Reactions: No Reported Reaction Date of Last Stent Placement:: 2016 Smoking Status: Never smoker - Past Family History Father Family Medical History: Unable to Obtain Additional Family Medical History / Comment(s): Father from motor vehicle accident Mother Family Medical History: Diabetes Mellitus, Hypertension Medications and Allergies Home Medications Medication Instructions Recorded Confirmed Type Aspirin 81 mg PO DAILY #1 chewable 06/05/15 09/29/19 Rx Multivitamins, Thera [Multivitamin 1 tab PO DAILY 07/02/15 09/29/19 History (formulary)] Atorvastatin [Lipitor] 80 mg PO HS 08/01/15 09/29/19 History Isosorbide Mononitrate ER [Imdur] 30 mg PO DAILY 08/01/15 09/29/19 History Levothyroxine Sodium [Synthroid] 75 mcg PO DAILY 05/01/16 09/29/19 History Citalopram Hydrobromide [CeleXA] 20 mg PO DAILY tab 08/14/16 09/29/19 Rx Meclizine [Antivert] 12.5 mg PO BID PRN 11/18/16 09/29/19 History Pantoprazole [Protonix] 40 mg PO DAILY 07/25/17 09/29/19 History Allopurinol [Zyloprim] 300 mg PO DAILY 11/26/18 09/29/19 History Carvedilol [Coreg] 6.25 mg PO BID 11/26/18 09/29/19 History Nitroglycerin Sl Tabs [Nitrostat] 0.4 mg SUBLINGUAL Q5M PRN 11/26/18 09/29/19 History Ferrous Sulfate [Iron (65 MG 325 mg PO BID 06/29/19 09/29/19 History Elemental)] INSULIN LISPRO (HumaLOG) [humaLOG] 6 units SQ BID 06/29/19 09/29/19 History Magnesium Oxide [Mag-Ox] 400 mg PO DAILY 06/29/19 09/29/19 History Furosemide [Lasix] 60 mg PO DAILY #60 tablet 07/01/19 09/29/19 Rx Spironolactone [Aldactone] 25 mg PO DAILY #30 tablet 07/01/19 09/29/19 Rx Insulin Detemir (Levemir) [Levemir] 22 unit SQ BID 09/29/19 10/03/19 History Metolazone [Zaroxolyn] 2.5 mg PO DAILY 09/29/19 09/29/19 History amLODIPine [Norvasc] 10 mg PO DAILY 09/29/19 09/29/19 History Allergies Allergy/AdvReac Type Severity Reaction Status Date / Time No Known Allergies Allergy Verified 10/03/19 06:31 Physical Exam Vitals: Vital Signs Temp Pulse Resp BP Pulse Ox 10/10/19 10:00 75 17 112/67 95 10/10/19 09:00 97 21 91/55 94 L 10/10/19 08:40 75 10/10/19 08:28 75 10/10/19 08:00 98.7 F 64 22 120/64 97 10/10/19 07:00 70 7 L 102/55 10/10/19 06:00 62 17 104/55 100 10/10/19 05:00 65 20 106/54 98 10/10/19 04:00 97.4 F L 66 15 105/58 98 10/10/19 03:00 61 21 101/69 99 10/10/19 02:00 63 11 L 106/58 97 10/10/19 01:00 71 21 114/62 99 10/10/19 00:00 97.8 F 75 23 96/70 98 10/09/19 23:29 20 10/09/19 23:00 91 14 113/54 98 10/09/19 22:00 77 21 125/63 98 10/09/19 21:00 82 15 128/62 98 10/09/19 20:00 98.4 F 81 19 137/76 97 10/09/19 19:00 85 20 125/56 92 L 10/09/19 18:00 79 20 121/107 98 10/09/19 17:00 83 20 149/51 99 10/09/19 16:53 98 10/09/19 16:00 97.9 F 80 18 121/58 96 10/09/19 15:00 75 20 117/56 99 10/09/19 14:00 75 19 108/78 95 10/09/19 13:00 73 16 121/64 99 10/09/19 12:16 88 18 10/09/19 12:04 84 16 10/09/19 12:00 98 F 70 21 99/59 98 Intake and Output 10/09/19 10/10/19 10/10/19 22:59 06:59 14:59 Intake Total 270 120 170 Output Total 750 475 600 Balance -480 -310 -430 Intake: IV 60 120 170 0.9 60 70 Sodium Chloride 0.9% 1, 50 170 000 ml @ 50 mls/hr IV . Q20H [facility] Rx#:[id number] Oral 210 0 Output: Urine 750 475 600 Other: Voiding Method Bedside Commode Bedside Commode # Voids 1 2 # Bowel Movements 1 1 Weight 92.8 kg GENERAL DESCRIPTION: An elderly female lying in bed, no distress. No tachypnea or accessory muscle of respiration use. HEENT: Shows Pallor , no scleral icterus. Oral thrush. No pharyngeal erythema or thrush NECK: Trachea central, no thyromegaly. LUNGS: Unlabored breathing. Decreased present at the base. No wheeze or crackle. HEART: S1, S2, regular rate and rhythm. No loud murmur ABDOMEN: Soft, no tenderness , guarding or rigidity, no organomegaly EXTREMITIES: No edema of feet. SKIN: No rash, no masses palpable. NEUROLOGICAL: The patient is awake, alert, oriented x3, mood and affect normal. Results CBC & Chem 7: 10/10/19 07:16 10/10/19 07:16 Labs: Abnormal Lab Results - Last 24 Hours (Table) 10/09/19 10/09/19 10/09/19 Range/Units 11:51 16:44 19:45 WBC (3.8-10.6) k/uL RBC (3.80-5.40) m/uL Hgb (11.4-16.0) gm/dL Hct (34.0-46.0) % RDW (11.5-15.5) % Neutrophils # (1.3-7.7) k/uL BUN (7-17) mg/dL Creatinine (0.52-1.04) mg/dL POC Glucose (mg/dL) 167 H 178 H 128 H (75-99) mg/dL 10/10/19 10/10/19 Range/Units 07:16 07:16 WBC 17.1 H (3.8-10.6) k/uL RBC 2.50 L (3.80-5.40) m/uL Hgb 7.2 L (11.4-16.0) gm/dL Hct 23.0 L (34.0-46.0) % RDW 19.0 H (11.5-15.5) % Neutrophils # 13.6 H (1.3-7.7) k/uL BUN 55 H (7-17) mg/dL Creatinine 1.76 H (0.52-1.04) mg/dL POC Glucose (mg/dL) (75-99) mg/dL Assessment and Plan Assessment: 1- patient with leukocytosis in this patient electively admitted to the hospital For coronary bypass grafting and mitral valve repair , in this patient currently with no fever and does not look toxic patient to have evidence of oral thrush that may be contributing to her elevated white count is currently with no evidence of any pneumonia. UA has been negative abdominal soft on clinical examination (1) Leukocytosis Current Visit: Yes Status: Acute Code(s): D72.829 - ELEVATED WHITE BLOOD CELL COUNT, UNSPECIFIED SNOMED Code(s): 949811987 Plan: 1- blood culture has been obtained as will be followed 2- we will add nystatin swish and swallow and Eraxis , Diflucan cannot be used because of amiodarone 3-repeat a CBC and CRP tomorrow We will follow on clinical condition and cultures to further adjust medication if needed Thank you for this consultation will follow this patient with you Time with Patient: Greater than 30
[2019-10-11] MEDS: HEPARIN SODIUM,PORCINE 5,000 UNIT/ML 1 ML VIAL SQ SCH ×3 (00:37→16:19)
[2019-10-11 05:15] LABS: Anisocytosis Slight; Basophils % (A) 0 %; Eosinophils # (A) 0.4 k/uL (0-0.7); Eosinophils % (A) 2 %; HCT 21.2 % (34.0-46.0); Hypochromasia Slight; Lymphocytes # (A) 1.9 k/uL (1.0-4.8); Lymphocytes % (A) 9 %; MCH 27.7 pg (25.0-35.0); MCHC 30.7 g/dL (31.0-37.0); MCV 90.3 fL (80.0-100.0); Mean Platelet Volume 7.7; Monocytes # (A) 0.8 k/uL (0-1.0); Monocytes % (A) 4 %; Neutrophils # (A) 17.5 k/uL (1.3-7.7); Neutrophils % (A) 84 %; Platelet Count 325 k/uL (150-450); RBC 2.35 m/uL (3.80-5.40); RDW 19.7 % (11.5-15.5); WBC 20.8 k/uL (3.8-10.6)
[2019-10-11 05:19] LABS: HGB 6.5 gm/dL (11.4-16.0)
[2019-10-11 06:45] LABS: Glucose,Whole Blood 132 mg/dL (75-99)
[2019-10-11] MEDS: LEVOTHYROXINE 75 MCG TAB PO SCH (06:46)
[2019-10-11] MEDS: FERROUS SULFATE 325 MG TAB PO SCH (06:46)
[2019-10-11] MEDS: PANTOPRAZOLE 40 MG TABLET PO SCH (06:46)
[2019-10-11] MEDS: INSULIN ASPART (NovoLOG) 100 UNIT/ML VIAL SQ SCH ×6 (06:47→22:06)
[2019-10-11] MEDS: INSULIN DETEMIR (LEVEMIR) 100 UNIT/ML SYR SQ SCH ×2 (06:57→22:12)
[2019-10-11 07:01] LABS: Albumin 2.8 g/dL (3.5-5.0); Calcium 8.5 mg/dL (8.4-10.2); Potassium 4.5 mmol/L (3.5-5.1); Total Bilirubin 0.9 mg/dL (0.2-1.3); Total Protein 5.1 g/dL (6.3-8.2)
--- NOTE | 2019-10-11 07:46 | P.PN ---
Subjective Progress Note Date: 10/11/19 Principal diagnosis: Status post CABG, mitral valve repair, postoperative day #7 68-year-old of Dr. Moore, with past medical history of coronary artery disease with previous stenting of the LAD in 2017, hypertension, hyperlipidemia, insulin-dependent diabetes mellitus, morbid obesity, stage III chronic kidney disease, pulmonary hypertension, family history of hypertension and diabetes. Patient was hospitalized last November 2018 when she presented with complaints of severe, constant, sharp chest pain with left arm radiation. Patient had echocardiogram that showed a moderately impaired LV function with EF of 35-40%, mild aortic regurgitation, mild mitral annular calcification and moderate to severe mitral regurgitation. There was evidence of severe pulmonary hyperten aniyah and moderate tricuspid regurg. Patient went on to have cardiac catheterization that showed LAD stenosis of 70% in the proximal portion. YULIANA showed EF of 35-40%, severe mitral regurgitation, with a dilated annulus and poor coaptation of the mitral leaflets and moderate to severe tricuspid regu rgitation. She was referred to CT surgery for surgical evaluation, and it took her several months to obtain dental clearance, and optimize her diabetes. Today on 10/03/2019 patient had a one-vessel bypass with REYES to LAD, and mitral valve repair, his occlusion of the left atrial appendage. She is seen in the postoperative period in the intensive care unit, she is intubated, sedated on mechanical ventilator, current vent settings assist control mode with a rate of 16, tidal vital 350, FiO2 50% and PEEP of 8. Current drips include 0.9 normal saline at a rate of 50, Primacor at 0.3 mics per kilo per minute, levo fed at 0.04 mics per kilo per minute, insulin drip, and Diprivan at 20 mics per kilo per minute. PA pressure is 48/27, CVP 13, cardiac output and index are 4.6 and 2.6 respectively, AV wires in place, patient is on VVI Mode and is currently pacing at 100%. 2 mediastinal chest tubes with 130 mL of sanguinous output, left pleural and right pleural with 120 and 50 ML of sanguinous output respectively. Postop blood work shows a white blood cell count of 12.3, hemoglobin of 8.7, sodium is 136, the rest of electrolytes are within normal limits, BUN 62 and creatinine is 1.74. Patient was reevaluated today on 10/04/19, patient was extubated around 4 AM this morning. He tolerated the extubation quite well. Presently on IV fluid at 50 mL per hour. Patient has intermittent episodes of confusion. Remains on Primacor at 0. one 5 mcg/kg/m. Patient is paced with VVI pacemaker at 50 bpm. Her cardiac index is 2.8, cardiac output is 5 CVP is 10. Chest x-ray showed minimal atelectasis at the bases. Patient had REYES to LAD, mitral valve repair and she again she is postoperative day #1. Patient is on 6 L high flow nasal cannula. O2 saturations 98%. Achieving 500 mL on her incentive spirometer. She has noted some surgical type of pain at the side of her chest tube insertion, and mostly when taking a deep breath. Denies shortness of breath. Mediastinal right and left pleural chest tubes remain in place. On continuous wall suction. No air leak. Draining thin serosanguineous drainage with the 130 mL output in the last 8 hours and 300 mL output since surgery from the mediastinal chest tubes. Patient was reevaluated today on 10/05/19, patient remains sitting in bed, doing well, no specific complaints. She is oriented [address] mostly [address] and place. Not oriented to time. Denies any complaints, she has some vague chest pain upon taking a deep breath. She is hemodynamically stable, not requiring any pressors. Her cardiac index is 2.6, cardiac output is 4.6. CVP is 14. Chest x-ray showed minimal atelectasis at the bases especially at the left base. Patient remains on 4 L nasal cannula, and O2 saturations 96%. She is achieving about 500 MLS her incentive spirometer. Her mediastinal left and right pleural chest tubes remained in place, no air leak noted. Drainage was noted, amount is becoming less and less over the last 2 days. She had a T-max of 99.7. Otherwise the patient is doing great. She does seem to be globally weak Patient was reevaluated today on 10/06/19, remains in the ICU, patient is sitting in a recliner. Denies any shortness of breath, no cough no wheezing, presently she has sinus rhythm and a second-degree AV block, hemodynamically stable, not requiring any pressors and at night she went into controlled atrial fib rillation. Placed on amiodarone and she remains on protocol this morning. Dr. Tavarez was consulted regarding her arrhythmia. He is recommending switching patient to oral amiodarone. Low-dose beta blockers and possibly eventually placed the patient back on her Coreg twice a day. No plans at least at this point to place a permanent pacer. He will assess the patient on outpatient basis chest x-ray today showed mostly left basilar atelectasis. Reevaluated today on 11/03/19, patient is doing quite well. Remains in the ICU, in no distress, denies any shortness of breath or pain. Heart rate is in the low 60s and 70s, patient is in atrial fibrillation. Hemodynamically stable. And she is doing better with incentive spirometry. Chest x-ray continues to show minimal left basilar atelectasis. Reevaluated today on 10/08/19, patient is doing fairly well, asymptomatic, chest x-ray is showing improvement, continues to have issues related to her intermittent episodes of cardiac arrhythmia. Patient is not requiring any inotropes. She is hemodynamically stable. Patient is presently in atrial fibrillation, she is on 2 L nasal cannula. And she is being considered for AICD placement next Thursday. Patient was reevaluated today on 10/09/19, remains in the ICU, but the patient is doing great. Sitting at a bedside chair, awake oriented 3, basically asymptomatic. Chest x-ray seems to be reassuring. Telemetry shows atrial fibrillation with left bundle branch block, rate is 84. O2 saturations 95% on 2 L. Doing much better with incentive spirometer. On 10/10/2019 patient is seen in follow-up in the intensive care unit, she is awake and alert, in no acute distress, she is resting comfortably in bed, she is currently on 2 L of oxygen, her pulse ox is 9200%, vital signs are stable, she is afebrile, she is in sinus mechanism on the monitor, with a rate of 62. No acute events overnight, her chest tubes have been discontinued, her AV wires are in place connected to external pacemaker with backup rate of 50, intrinsic rhythm is sinus, with a rate of 62. Patient has been nothing by mouth since midnight, she is scheduled for pacemaker/AICD placement today, she denies any pulmonary complaints, denies any shortness of breath, her pain is under good control, lung sounds are clear to auscultation, patient is working on incentive spirometer, effort to the 750 ML. Today's chest x-ray has been reviewed showing subsegmental areas of consolidation bilaterally that are stable in appearance and likely related to postoperative atelectasis. These labs have been reviewed showing white blood cell, 17.1, hemoglobin of 7.2, electrolytes are within normal limits, BUN of 55 and creatinine is 1.76. Patient has been tolerating ambulation in the hallway. On 10/11/2019 patient seen in follow-up in the intensive care unit, she is resting in bed, in no acute distress, she is on 2 L of oxygen pulse ox of 97%, she has been afebrile, hemodynamically patient is stable, sinus rhythm on mo nitor, AV wires connected to external pacemaker with backup rate of 50. Yesterday patient's pacemaker/AICD placement was delayed related to leukocytosis. Today's labs have been reviewed and with blood cell count has trended further up to 20.8, hemoglobin is 6.5, platelet count is 325, sodium is 141, potassium is 4.5, chloride is 108, CO2 is 24, B1 is 60 and creatinine is 1.71. Patient denies any shortness of breath, she is working on incentive spirometer, her effort today is about 750 ML. Lung sounds are positive for bibasilar crackles, no rhonchi no wheezing, patient will nonproductive cough. Urinalysis was sent yesterday and results show no evidence of infection. His chest x-ray shows left basilar atelectasis, no evidence of consolidation or pneumonia. Cultures have been sent and pending. Rashes disease has been consulted, and patient has been placed on Eraxis, and oral nystatin. Objective - Vital Signs Vital signs: Vital Signs Temp 98.8 F 10/11/19 04:00 Pulse 66 10/11/19 07:00 Resp 17 10/11/19 07:00 BP 123/68 10/11/19 07:00 Pulse Ox 97 10/11/19 07:00 Intake & Output 10/10/19 10/11/19 10/11/19 18:59 06:59 18:59 Intake Total 510 120 10 Output Total 680 650 0 Balance -170 -530 10 Weight 92.2 kg Intake: IV 440 120 10 Anidulafungin 200 mg In 200 Sodium Chloride 0.9% 200 ml @ 84 mls/hr IVPB ONCE ONE Rx#:[id number] Sodium Chloride 0.9% 1, 240 120 10 000 ml @ 50 mls/hr IV . Q20H [facility] Rx#:[id number] Oral 70 Output: Urine 600 650 0 Post Void Residual 80 Other: Voiding Method Bedside Commode Bedside Commode # Voids 1 # Bowel Movements 1 1 ABP, PAP, CO, CI - Last Documented Arterial Blood Pressure 130/42 Pulmonary Artery Pressure 46/22 Cardiac Output 4.6 Cardiac Index 2.6 - Exam GENERAL EXAM: Alert, very pleasant, 68-year-old female, on 2 L of oxygen with pulse ox of 97%, comfortable in no apparent distress. HEAD: Normocephalic/atraumatic. EYES: Normal reaction of pupils, equal size. Conjunctiva pink, sclera white. NOSE: Clear with pink turbinates. THROAT: No erythema or exudates. NECK: No masses, no JVD, no thyroid enlargement, no adenopathy. CHEST: No chest wall deformity. Symmetrical expansion. Midsternal incision, clean dry and intact, chest tube sites are clean dry and intact, AV wires in place, connected to an external pacemaker with a backup rate of 50, intrinsic rhythm is sinus rhythm with a right lung base clinic with a rate of 62 BPM LUNGS: Equal air entry with no crackles, wheeze, rhonchi or dullness. CVS: Regular rate and rhythm, normal S1 and S2, no gallops, no murmurs, no rubs ABDOMEN: Soft, nontender. No hepatosplenomegaly, normal bowel sounds, no guard ing or rigidity. EXTREMITIES: No clubbing, no edema, no cyanosis, 2+ pulses and upper and lower extremities. MUSCULOSKELETAL: Muscle strength and tone normal. SPINE: No scoliosis or deformity SKIN: No rashes CENTRAL NERVOUS SYSTEM: Alert and oriented -3. No focal deficits, tone is normal in all 4 extremities. PSYCHIATRIC: Alert and oriented -3. Appropriate affect. Intact judgment and insight. - Labs CBC & Chem 7: 10/11/19 04:19 10/11/19 06:35 Labs: Abnormal Lab Results - Last 24 Hours (Table) 10/10/19 10/10/19 10/10/19 Range/Units 07:16 07:16 11:47 WBC 17.1 H (3.8-10.6) k/uL RBC 2.50 L (3.80-5.40) m/uL Hgb 7.2 L (11.4-16.0) gm/dL Hct 23.0 L (34.0-46.0) % MCHC (31.0-37.0) g/dL RDW 19.0 H (11.5-15.5) % Neutrophils # 13.6 H (1.3-7.7) k/uL Chloride (98-107) mmol/L BUN 55 H (7-17) mg/dL Creatinine 1.76 H (0.52-1.04) mg/dL Glucose (74-99) mg/dL POC Glucose (mg/dL) 124 H (75-99) mg/dL ALT (4-34) U/L C-Reactive Protein (<10.0) mg/L Total Protein (6.3-8.2) g/dL Albumin (3.5-5.0) g/dL 10/10/19 10/10/19 10/11/19 Range/Units 16:42 20:27 04:19 WBC 20.8 H (3.8-10.6) k/uL RBC 2.35 L (3.80-5.40) m/uL Hgb 6.5 L* (11.4-16.0) gm/dL Hct 21.2 L (34.0-46.0) % MCHC 30.7 L (31.0-37.0) g/dL RDW 19.7 H (11.5-15.5) % Neutrophils # 17.5 H (1.3-7.7) k/uL Chloride (98-107) mmol/L BUN (7-17) mg/dL Creatinine (0.52-1.04) mg/dL Glucose (74-99) mg/dL POC Glucose (mg/dL) 206 H 221 H (75-99) mg/dL ALT (4-34) U/L C-Reactive Protein (<10.0) mg/L Total Protein (6.3-8.2) g/dL Albumin (3.5-5.0) g/dL 10/11/19 10/11/19 10/11/19 Range/Units 04:19 06:35 06:44 WBC (3.8-10.6) k/uL RBC (3.80-5.40) m/uL Hgb (11.4-16.0) gm/dL Hct (34.0-46.0) % MCHC (31.0-37.0) g/dL RDW (11.5-15.5) % Neutrophils # (1.3-7.7) k/uL Chloride 108 H (98-107) mmol/L BUN 60 H (7-17) mg/dL Creatinine 1.71 H (0.52-1.04) mg/dL Glucose 114 H (74-99) mg/dL POC Glucose (mg/dL) 132 H (75-99) mg/dL ALT 45 H (4-34) U/L C-Reactive Protein 161.9 H (<10.0) mg/L Total Protein 5.1 L (6.3-8.2) g/dL Albumin 2.8 L (3.5-5.0) g/dL Assessment and Plan Plan: Assessment: #1. Coronary artery disease, severe mitral regurgitation, status post 1 vessel bypass REYES to LAD, and mitral valve repair, left atrial appendage exclusion, postoperative day 8 #2. Leukocytosis, unspecified, rule out infectious process, but cultures are pending, patient is afebrile, urinalysis without any sign of infection, chest x- ray showing cardiomegaly, possible left basilar atelectasis, right lung is clear #3. Chronic congestive heart failure, systolic in nature #4. Post-op of cardiac arrhythmia, presently in sinus mechanism with right bundle branch block, and placement of pacemaker/AICD #5. Acute blood loss anemia, expected outcome of bypass and mitral valve repair surgery #6 Chronic kidney disease #7. Recent history of urinary tract infection, with urine culture positive for Klebsiella pneumonia treated with ciprofloxacin #8. Normal preop spirometry with FEV1 of 92% of predicted #9. History of diabetes mellitus, poorly controlled #10. Hypertension #11. Hyperlipidemia #12. Previous stenting of the LAD 2017 #13. Ischemic cardiomyopathy with LV function of 35-40% #14. Pulmonary hypertension likely related to valvular heart disease #15. Family history of hypertension and diabetes Plan: Continue current medical management, blood cultures are pending, urinalysis is without sign of infection, ID service is following, patient has been started on antifungal agent, patient has been afebrile, today's chest x-ray has been reviewed showing cardiomegaly, possible left basilar atelectasis, no focal consolidation. Hemodynamically patient is stable, encourage deep breathing and coughing, we'll continue to monitor the patient in the intensive care unit. I performed a history & physical examination of the patient and discussed their management with my nurse practitioner, Ashlee Elaine. I reviewed the nurse practitioner's note and agree with the documented findings and plan of care. Lung sounds are positive for diminished breath sounds. The findings and the impression was discussed with the patient. I attest to the documentation by the nurse practitioner. Time with Patient: Less than 30
--- NOTE | 2019-10-11 08:06 | P.PN ---
Subjective Progress Note Date: 10/11/19 Principal diagnosis: Single vessel coronary artery disease, severe functional mitral valve regurgitation with mild tricuspid valve regurgitation and heart failure. Past medical history significant for hypertension, coronary artery disease with previous stent placement to her proximal left anterior descending coronary artery in 2017, hyperlipidemia, insulin-dependent diabetes mellitus poorly controlled with a preoperative hemoglobin A1c of 10.7%, morbid obesity, stage III chronic kidney disease with a baseline creatinine of 1.5, obstructive sleep apnea, pulmonary hypertension and preoperative urinary tract infection of Klebsiella pneumoniae which was treated. POD #8 single coronary artery bypass grafting using the left internal mammary artery to left anterior descending coronary artery, mitral valve repair using a reduction annuloplasty with a 28 mm physio-II ring, exclusion of the left atrial appendage using a 45 mm Atriclip, intraoperative graft flow measurements using the [employer] sytem, intraoperative epi-aortic scanning and transesophageal echocardiogram. Postoperative acute blood loss anemia, an expected outcome secondary to cardiopulmonary bypass and hemodilution. Postoperative second-degree type 2/third-degree heart block, an unexpected but potential outcome of surgery. Postoperative paroxysmal atrial fibrillation, an unexpected but potential out come of surgery. Postoperative leukocytosis, without fever and no obvious signs of infection. The patient was seen today 10/11/2019 at her bedside in the intensive care unit. The patient is laying in bed and is in no acute apparent distress. She is awake, alert and oriented 3. She remained hemodynamically stable and is currently on no inotropic or pressor support. Currently she denies any c omplaints of shortness of breath or pain. The patient was scheduled for a biventricular ICD placement yesterday to be performed by Dr. Kendall from cardiology, although due to her WBC count of 17.1 the ICD was canceled. The patient remains afebrile. A urinalysis was collected due to her elevated white count and history of preoperative urinary tract infection and the UA was negative. Blood cultures were also drawn and results are pending. Infectious disease was consulted and is following. She was started on nystatin swish and swallow and Eraxis for thrush. The patient was also having complaints of constipation yesterday and was given a soapsuds enema with good results. Oxygen saturations are 97% on 2 L nasal cannula and she is achieving 1250 mL on her incentive spirometry. Bedside monitor is showing normal sinus rhythm with left bundle branch block and occasional ventricular paced beats heart rate 68 BPM. Laboratory results were reviewed this morning and show a WBC count trending up of 20.8, hemoglobin 6.5, hematocrit 21.2, platelets 325, CRP 161.9, BUN 60 and creatinine 1.71. The patient was also having some urinary retention yesterday with postvoid residual showing 600 mL of urine requiring straight catheterization. Atrial and ventricular epicardial pacemaker wires remain in place and connected to backup pacemaker generator with a VVI 50. Chest x-ray was completed this morning and demonstrates left basilar atelectasis without evidence of pneumonia or consolidation. Objective - Vital Signs Vital signs: Vital Signs Temp 98.8 F 10/11/19 04:00 Pulse 66 10/11/19 07:00 Resp 17 10/11/19 07:00 BP 123/68 10/11/19 07:00 Pulse Ox 97 10/11/19 07:00 Intake & Output 10/10/19 10/11/19 10/11/19 18:59 06:59 18:59 Intake Total 510 120 10 Output Total 680 650 0 Balance -170 -530 10 Weight 92.2 kg Intake: IV 440 120 10 Anidulafungin 200 mg In 200 Sodium Chloride 0.9% 200 ml @ 84 mls/hr IVPB ONCE ONE Rx#:[id number] Sodium Chloride 0.9% 1, 240 120 10 000 ml @ 50 mls/hr IV . Q20H [facility] Rx#:[id number] Oral 70 Output: Urine 600 650 0 Post Void Residual 80 Other: Voiding Method Bedside Commode Bedside Commode # Voids 1 # Bowel Movements 1 1 ABP, PAP, CO, CI - Last Documented Arterial Blood Pressure 130/42 Pulmonary Artery Pressure 46/22 Cardiac Output 4.6 Cardiac Index 2.6 - Exam This is a pleasant 68-year-old female patient who currently laying in bed in the intensive care unit. She is in no apparent acute distress, she is awake, alert and oriented 3. Oxygen saturation are 97 % on 2 L nasal cannula. - Constitutional General appearance: Present: cooperative, morbidly obese, no acute distress - EENT Eyes: Absent: scleral icterus ENT: Present: hearing grossly normal, thrush - Neck Details: Neck is supple, no JVD. Neck: Absent: lymphadenopathy - Respiratory Details: Lung sounds are essentially there throughout, diminished for bilateral bases. Respirations are symmetrical and nonlabored. No wheezes, rhonchi or crackles. Oxygen saturation 97% on 2 L nasal cannula. Achieving 1250 mL on her incentive spirometry. - Cardiovascular Details: Regular rhythm and rate. S1 and S2 present, negative for S3, gallop or murmur. Sternum is stable. Atrial and ventricular epicardial pacemaker wires in place and connected to back up bedside pacemaker generator with a VVI 50. No edema present. Heart hugger is in place and she is demonstrating appropriate use with encouragement. Knee-high KARTHIKEYAN hose and sequential compression devices in place for bilateral lower extremities. - Gastrointestinal Gastrointestinal Comment(s): Abdomen is soft, nontender and nondistended. Active bowel sounds present in all 4 abdominal quadrants. No guarding or rigidity. No organomegaly appreciated. Tolerating oral intake. Bowel movement yesterday 10/10/2019. - Genitourinary Genitourinary Comment(s): Urinary retention yesterday 10/10/2019 with postvoid residual of around 600 requiring straight catheterization. - Integumentary Integumentary Comment(s): Skin is warm and dry. No clubbing or cyanosis is present. +1 edema to her left forearm with small ecchymotic area to her left wrist and tender to palpate. Midline sternal incision is clean, dry and approximated. Exofin dressing is clean, dry and in place. No redness or drainage present. Gauze dressing is clean, dry and intact. - Neurologic Neurologic: Present: CNII-XII intact - Musculoskeletal Musculoskeletal: Present: gait normal, generalized weakness, strength equal bilaterally - Psychiatric Psychiatric Comment(s): Flat affect Psychiatric: Present: A&O x's 3, intact judgment & insight - Allied health notes Allied health notes reviewed: nursing - Labs CBC & Chem 7: 10/11/19 04:19 10/11/19 06:35 Labs: Abnormal Lab Results - Last 24 Hours (Table) 10/10/19 10/10/19 10/10/19 Range/Units 07:16 07:16 11:47 WBC 17.1 H (3.8-10.6) k/uL RBC 2.50 L (3.80-5.40) m/uL Hgb 7.2 L (11.4-16.0) gm/dL Hct 23.0 L (34.0-46.0) % MCHC (31.0-37.0) g/dL RDW 19.0 H (11.5-15.5) % Neutrophils # 13.6 H (1.3-7.7) k/uL Chloride (98-107) mmol/L BUN 55 H (7-17) mg/dL Creatinine 1.76 H (0.52-1.04) mg/dL Glucose (74-99) mg/dL POC Glucose (mg/dL) 124 H (75-99) mg/dL ALT (4-34) U/L C-Reactive Protein (<10.0) mg/L Total Protein (6.3-8.2) g/dL Albumin (3.5-5.0) g/dL 10/10/19 10/10/19 10/11/19 Range/Units 16:42 20:27 04:19 WBC 20.8 H (3.8-10.6) k/uL RBC 2.35 L (3.80-5.40) m/uL Hgb 6.5 L* (11.4-16.0) gm/dL Hct 21.2 L (34.0-46.0) % MCHC 30.7 L (31.0-37.0) g/dL RDW 19.7 H (11.5-15.5) % Neutrophils # 17.5 H (1.3-7.7) k/uL Chloride (98-107) mmol/L BUN (7-17) mg/dL Creatinine (0.52-1.04) mg/dL Glucose (74-99) mg/dL POC Glucose (mg/dL) 206 H 221 H (75-99) mg/dL ALT (4-34) U/L C-Reactive Protein (<10.0) mg/L Total Protein (6.3-8.2) g/dL Albumin (3.5-5.0) g/dL 10/11/19 10/11/19 10/11/19 Range/Units 04:19 06:35 06:44 WBC (3.8-10.6) k/uL RBC (3.80-5.40) m/uL Hgb (11.4-16.0) gm/dL Hct (34.0-46.0) % MCHC (31.0-37.0) g/dL RDW (11.5-15.5) % Neutrophils # (1.3-7.7) k/uL Chloride 108 H (98-107) mmol/L BUN 60 H (7-17) mg/dL Creatinine 1.71 H (0.52-1.04) mg/dL Glucose 114 H (74-99) mg/dL POC Glucose (mg/dL) 132 H (75-99) mg/dL ALT 45 H (4-34) U/L C-Reactive Protein 161.9 H (<10.0) mg/L Total Protein 5.1 L (6.3-8.2) g/dL Albumin 2.8 L (3.5-5.0) g/dL - Imaging and Cardiology Chest x-ray: image reviewed Assessment and Plan Assessment: 1. Single-vessel coronary artery disease, status post single vessel coronary artery bypass grafting REYES to the left anterior descending coronary artery 2. Severe functional mitral valve regurgitation, status post mitral valve repair using a reduction annuloplasty with a 28 mm physio-II ring 3. Mild tricuspid valve regurgitation 4. Acute on chronic systolic heart failure, with a preoperative ejection fraction of 35-40% 5. History of coronary artery disease with previous stent placement to her left anterior descending coronary artery in 2017 6. Hypertension 7. Dyslipidemia 8. Poorly controlled insulin-dependent diabetes mellitus with a preoperative hemoglobin A1c of 10.7% 8. Ischemic cardiomyopathy 9. Pulmonary hypertension, likely related to valvular disease 10. Stage III chronic kidney disease with a baseline creatinine of 1.5 11. Obstructive sleep apnea 12. Preoperative urinary tract infection of Klebsiella pneumoniae, treated 13. Morbid obesity 14. Postoperative acute blood loss anemia 15. Postoperative second-degree type 2/third-degree heart block, an unexpected but potential outcome of surgery 16. Postoperative paroxysmal atrial fibrillation, an unexpected but potential outcome of surgery 17. Postoperative leukocytosis, without fever and no obvious signs of infection 18. Postoperative urinary retention Plan: 1. Continue aspirin, statin, Plavix, and beta anaid. 2. Encourage incentive spirometry 10 times every hour while awake. 3. Bronchodilators per pulmonology management. 4. Increase activity, out of bed for all meals. PT/OT/cardiac rehab following. 5. Will monitor daily labs and chest x-rays. Repeat CRP in a.m. 10/12/2019. Electrolyte replacement per protocol. 6. Pain controlled current medication regimen. Avoid Toradol due to the patient's renal function. 7. Insulin management per primary care service. 8. Biventricular ICD placement on hold at this time due to her elevated white count. 9. Transfuse 1 unit of PRBCs for hemoglobin of 6.5. 10. Continue Cozaar 25 mg by mouth daily at noon for afterload reduction and Aldactone 12.5 mg by mouth daily. 11. Continue amiodarone 400 mg by mouth twice a day for atrial fibrillation prophylaxis. 12. Lasix 40 mg IV 1 post transfusion of PRBCs. 13. Infectious disease consult noted and appreciated. 14. Consult Dr. Miller from urology for urinary retention. 15. Lasix 40 mg IV 1 post transfusion of PRBCs. 16. Continue to follow the results of the cultures. 17. Keep atrial and ventricular epicardial pacemaker wires in place and connected to bedside pacemaker generator on a VVI 50. 18. More recommendations to follow based on patient's clinical course. Time with Patient: Greater than 30
[2019-10-11] MEDS: IPRATROPIUM-ALBUTEROL 3 ML NEB INHALATION SCH ×4 (08:08→20:53)
--- NOTE | 2019-10-11 08:45 | XR ---
EXAMINATION TYPE: XR chest 1V portable DATE OF EXAM: 10/11/2019 COMPARISON: 10/09/2019 HISTORY: Post CABG TECHNIQUE: Single frontal view of the chest is obtained. FINDINGS: Heart is enlarged and there is postoperative change. No pneumothorax. Minimal residual sub segmental consolidation left lung base. Epicardial lead noted. Surgical clips right upper quadrant ab domen. No overt failure. IMPRESSION: 1. Postoperative change improving subsegmental areas of consolidation likely on the basis of improvin g postoperative atelectasis.
[2019-10-11] MEDS: allopurinoL 300 MG TAB PO SCH (09:22)
[2019-10-11] MEDS: SPIRONOLACTONE 25 MG TAB PO SCH (09:23)
[2019-10-11] MEDS: ASPIRIN 325 MG TAB PO SCH (09:23)
[2019-10-11] MEDS: METOPROLOL TARTRATE 12.5 MG TAB PO SCH ×2 (09:23→22:13)
[2019-10-11] MEDS: ATORVASTATIN 40 MG TAB PO SCH (09:23)
[2019-10-11] MEDS: NYSTATIN 100,000 UNIT/ML SUSP 500,000 UNIT/5 ML CUP PO SCH ×4 (09:24→22:16)
[2019-10-11] MEDS: ANIDULAFUNGIN 100 MG in SODIUM CHLORIDE 0.9% 100 ML IVPB SCH (09:33)
[2019-10-11] MEDS: AMIODARONE 200 MG TAB PO SCH ×2 (09:33→22:13)
[2019-10-11] MEDS: CITALOPRAM HYDROBROMIDE 20 MG TAB PO SCH (09:42)
[2019-10-11] MEDS: CLOPIDOGREL 75 MG TAB PO SCH (09:42)
[2019-10-11] MEDS ORDERED: FUROSEMIDE 10 MG/ML 4 ML VIAL IV STA (09:44)
[2019-10-11 10:27] VITALS: BMI 38.4
[2019-10-11] MEDS ORDERED: LACTULOSE 20 GM/30 ML CUP PO ONE (10:46)
[2019-10-11 12:11] LABS: Anisocytosis Slight; HCT 26.1 % (34.0-46.0); Hypochromasia Slight; MCH 29.4 pg (25.0-35.0); MCHC 32.3 g/dL (31.0-37.0); Mean Platelet Volume 7.5; Platelet Count 340 k/uL (150-450); RBC 2.87 m/uL (3.80-5.40); RDW 18.9 % (11.5-15.5); WBC 21.7 k/uL (3.8-10.6)
[2019-10-11 12:12] LABS: Glucose,Whole Blood 105 mg/dL (75-99)
[2019-10-11 12:16] LABS: HGB 8.4 gm/dL (11.4-16.0)
[2019-10-11] MEDS: LOSARTAN 25 MG TAB PO SCH (13:09)
[2019-10-11] MEDS: AMPICILLIN-SULBACTAM 3 GM in SODIUM CHLORIDE 0.9% 100 ML IVPB SCH ×2 (13:10→20:10)
[2019-10-11] MEDS ORDERED: MINERAL OIL 133 ML ENEMA RECTAL STA (14:28)
[2019-10-11] MEDS ORDERED: LACTULOSE 20 GM/30 ML CUP PO PRN (14:29)
--- NOTE | 2019-10-11 14:36 | P.PN ---
Subjective Progress Note Date: 10/11/19 This is a 68-year-old female with history of single-vessel coronary artery disease and mitral regurgitation, status post bypass surgery and mitral valve repair. Patient also has underlying atrial fibrillation with left bundle-branch block pattern. Patient developed bradycardia after she was treated with IV amiodarone. Patient is off amiodarone at this time. She is a small dose of beta naaid. Her heart rate is controlled without any significant bradyarrhythmias. Patient is sitting up in the chair and seems to be stable. Complain some mild chest pain but no shortness of breath. Lungs show some diminished breath sounds at bases and few rhonchi. Heart is irregular. Overall patient's critical status seemed to be stable. We'll continue current medical therapy. Increase activity and possible transfer to telemetry unit. Continue monitoring for any significant bradyarrhythmias. 10/08/2019: This patient seemed to be much stable. Patient is back in sinus rhythm. Denies any significant chest pain or shortness of breath. Tolerating activity. No other arrhythmias. She is only on beta anaid. Lungs sound clear. Heart is regular. Patient urine output is good with a negative balance of more than a liter. Patient could be transferred to telemetry unit. Hopefully discharge within next 24-48 hours 10/09/2019:his 68-year-old female is status post bypass surgery and mitral valve repair. Seemed to be feeling better. Complains of mild soreness in the chest from her incisions. Denies any significant shortness of breath. Continues to use temporary pacemaker. She is scheduled to have AICD and by ventricle pacemaker tomorrow. Patient doesn't have underlying left bundle-branch block. All LV function is impaired. Otherwise, systemic clinically stable. Continue current medical therapy. He had 10/10/2019: This patient was scheduled to have AICD with biventricular pace maker. However, patient developed signs of sepsis with white count elevation. The procedure was canceled for today. Patient is being treated with antibiotics. Patient is still in sinus rhythm with intermittent atrial fibrillation. With the evidence of sinus pauses and Mobitz type I block. We'll continue to monitor her closely. Patient still has a pacemaker wires. If she needs to wait for a long time, patient may need external temporary pacemaker. 10/11/2019: This patient continues to have white count elevation. No fever. No definite source of infection. Chest x-ray doesn't show any evidence of pneumonia. Patient continues to have bradycardia and using pacemaker intermittently. Patient is waiting to have AICD biventricular a speckled placement by Dr. sutton. Waiting for the reports of the blood cultures. Meanwhile, continue current medical therapy. Patient is also receiving blood transfusion for anemia Objective - Vital Signs Vital signs: Vital Signs Temp 97.8 F 10/11/19 12:00 Pulse 66 10/11/19 13:00 Resp 20 10/11/19 13:00 BP 100/59 10/11/19 13:00 Pulse Ox 94 L 10/11/19 13:00 Intake & Output 10/10/19 10/11/19 10/11/19 18:59 06:59 18:59 Intake Total 510 120 700 Output Total 680 650 400 Balance -170 -530 300 Weight 92.2 kg 92.2 kg Intake: IV 440 120 340 0.9 100 Ampicillin-Sulbactam 3 gm 100 In Sodium Chloride 0.9% 100 ml @ 200 mls/hr IVPB Q6HR [facility] Rx#:[id number] Anidulafungin 200 mg In 200 130 Sodium Chloride 0.9% 200 ml @ 84 mls/hr IVPB ONCE ONE Rx#:[id number] Sodium Chloride 0.9% 1, 240 120 10 000 ml @ 50 mls/hr IV . Q20H [facility] Rx#:[id number] Oral 70 50 Blood Product 310 Rc As-3 Unit 310 [id number] Output: Urine 600 650 400 Post Void Residual 80 Other: Voiding Method Bedside Commode Bedside Commode Bedside Commode # Voids 1 1 # Bowel Movements 1 1 ABP, PAP, CO, CI - Last Documented Arterial Blood Pressure 130/42 Pulmonary Artery Pressure 46/22 Cardiac Output 4.6 Cardiac Index 2.6 - Exam GENERAL EXAM: Patient is alert and oriented and doesn't appear to be in any acute distress HEENT: Normocephalic. Normal reaction of pupils, equal size, normal range of extraocular motion. No erythema or exudates in the throat. NECK: No masses, no nuchal rigidity. CHEST: No chest wall deformity. LUNGS: Diminished breath sounds at bases HEART: S1 and S2 normal. Regular rhythm ABDOMEN: No hepatosplenomegaly, normal bowel sounds, no guarding or rigidity. SKIN: No rashes CENTRAL NERVOUS SYSTEM: No focal deficits. EXTREMITIES: No cyanosis, clubbing or edema. - Labs CBC & Chem 7: 10/11/19 11:51 10/11/19 06:35 Labs: Abnormal Lab Results - Last 24 Hours (Table) 10/10/19 10/10/19 10/11/19 Range/Units 16:42 20:27 04:19 WBC 20.8 H (3.8-10.6) k/uL RBC 2.35 L (3.80-5.40) m/uL Hgb 6.5 L* (11.4-16.0) gm/dL Hct 21.2 L (34.0-46.0) % MCHC 30.7 L (31.0-37.0) g/dL RDW 19.7 H (11.5-15.5) % Neutrophils # 17.5 H (1.3-7.7) k/uL Chloride (98-107) mmol/L BUN (7-17) mg/dL Creatinine (0.52-1.04) mg/dL Glucose (74-99) mg/dL POC Glucose (mg/dL) 206 H 221 H (75-99) mg/dL ALT (4-34) U/L C-Reactive Protein (<10.0) mg/L Total Protein (6.3-8.2) g/dL Albumin (3.5-5.0) g/dL Crossmatch 10/11/19 10/11/19 10/11/19 Range/Units 04:19 06:35 06:35 WBC (3.8-10.6) k/uL RBC (3.80-5.40) m/uL Hgb (11.4-16.0) gm/dL Hct (34.0-46.0) % MCHC (31.0-37.0) g/dL RDW (11.5-15.5) % Neutrophils # (1.3-7.7) k/uL Chloride 108 H (98-107) mmol/L BUN 60 H (7-17) mg/dL Creatinine 1.71 H (0.52-1.04) mg/dL Glucose 114 H (74-99) mg/dL POC Glucose (mg/dL) (75-99) mg/dL ALT 45 H (4-34) U/L C-Reactive Protein 161.9 H (<10.0) mg/L Total Protein 5.1 L (6.3-8.2) g/dL Albumin 2.8 L (3.5-5.0) g/dL Crossmatch See Detail 10/11/19 10/11/19 10/11/19 Range/Units 06:44 11:51 12:10 WBC 21.7 H (3.8-10.6) k/uL RBC 2.87 L (3.80-5.40) m/uL Hgb 8.4 L D (11.4-16.0) gm/dL Hct 26.1 L (34.0-46.0) % MCHC (31.0-37.0) g/dL RDW 18.9 H (11.5-15.5) % Neutrophils # (1.3-7.7) k/uL Chloride (98-107) mmol/L BUN (7-17) mg/dL Creatinine (0.52-1.04) mg/dL Glucose (74-99) mg/dL POC Glucose (mg/dL) 132 H 105 H (75-99) mg/dL ALT (4-34) U/L C-Reactive Protein (<10.0) mg/L Total Protein (6.3-8.2) g/dL Albumin (3.5-5.0) g/dL Crossmatch Microbiology - Last 24 Hours (Table) 10/10/19 09:31 Blood Culture - Preliminary Blood No Growth after 24 hours 10/10/19 09:45 Blood Culture - Preliminary Blood No Growth after 24 hours Assessment and Plan (1) Status post aorto-coronary artery bypass graft Current Visit: Yes Status: Acute Code(s): Z95.1 - PRESENCE OF AORTOCORONARY BYPASS GRAFT SNOMED Code(s): 608859384 (2) Status post mitral valve repair Current Visit: Yes Status: Acute Code(s): Z98.890 - OTHER SPECIFIED POSTPROCEDURAL STATES SNOMED Code(s): 684384872 (3) Left bundle branch block Current Visit: Yes Status: Acute Code(s): I44.7 - LEFT BUNDLE-BRANCH BLOCK, UNSPECIFIED SNOMED Code(s): 66883038 (4) Atrial fibrillation Current Visit: Yes Status: Acute Code(s): I48.91 - UNSPECIFIED ATRIAL FIBRILLATION SNOMED Code(s): 81708903 (5) Bradycardia Current Visit: Yes Status: Acute Code(s): R00.1 - BRADYCARDIA, UNSPECIFIED SNOMED Code(s): 92877343 Plan: Continue with blood transfusion. Continue workup for possible sepsis. Waiting for AICD biventricular pacemaker implantation
--- NOTE | 2019-10-11 15:27 | PN ---
PROGRESS NOTE DATE OF SERVICE: 10/11/2019 REASON FOR FOLLOW UP: Leukocytosis/question abdominal source. INTERVAL HISTORY: The patient is currently afebrile. The patient is breathing comfortably, denies having any chest pain. She did have some cough but no sputum. No nausea, vomiting, abdominal discomfort and the patient is complaining of constipation, no bowel movement. PHYSICAL EXAMINATION: Blood pressure 107/52 with a pulse of 64, temperature is 97.8. She is 91% on room air. General description is an elderly female, up in the chair in no distress. RESPIRATORY SYSTEM: Unlabored breathing, decreased breath sounds in the base, with no wheeze. HEART: S1, S2. Regular rate and rhythm. ABDOMEN: Soft, no guarding. No organomegaly. LABS: Hemoglobin of 8.1, white count 21.7, BUN of 6, creatinine 1.71. DIAGNOSTIC IMPRESSION AND PLAN: Patient with leukocytosis which is likely multifactorial, possible reactive, possible component of abdominal source. This patient did have constipation with the . Will empirically add Unasyn, continue with nystatin swish and swallow. Repeat CBC tomorrow. Plan of care discussed with the surgical team. MMODL / IJN: [id number] /
[2019-10-11] MEDS ORDERED: PEG 3350-NA SULF,BICARB,CL/KCL 4,000 ML BOTTLE PO PRN (15:48)
--- NOTE | 2019-10-11 15:48 | P.PN ---
Subjective 68 years old female with past medical history of coronary artery disease, heart failure status post stent placement, diabetes mellitus, GERD, hypertension, hyperlipidemia, sleep apnea on CPAP/BiPAP, hypothyroidism. She is a status post 1 vessel bypass surgery and today postop day #1. She also got extubated today and currently she is on nasal cannula at 4 L/m was saturating 95-98%, patient denies chest pain or dyspnea except as surgical site which is expected. Rest of Vitas looks stable. Labs reviewed showed mild leukocytosis of 12 K, INR is normal, sugar controlled, creatinine 1.9 (baseline 1.4-2.0) Chest x-ray: Improved radiation Patient is currently on aspirin, metoprolol, oral levothyroxine, Protonix 10/05/2019 Patient remains in the ICU with no chest pain or dyspnea. However today her blood pressure dropped with physical therapy session went down to 80/40, patient brought back on lying position in the chair, she was fully awake and oriented however she looked pale with no chest pain or dyspnea. Recheck blood pressure show improvement, please see records. Progressive vitals are stable. Sugar controlled 141-152 today her chest tube and swelling Came out 10/06/2019 Patient is awake and alert, looks tired but she denies chest pain or dyspnea and vitals are stable. Sugar controlled and WBC is trending down to 11.6 K. Creatinine down to 1.7. Patient was on insulin drip which could be stopped, patient is eating. Resume her Levemir 15 units twice a day (was 22 units at home) and 3 units with meals (was 6 units at home), keep insulin sliding scale. Cardiology team also following the case today. 10/07/2019 Patient is up in chair, no dizziness, blood pressure is a stable at 117/66. No postural symptoms. She was sitting and eating in bed with no difficulty. She still have some pain in the surgical site which is expected. Mild Leukocytosis of 12.4 K. Creatinine 1.8 him at baseline. Sugar control, continue with same regimen 10/08/19 Patient is in chair, no chest pain, no dizziness. Breathing quietly. Vitas looks stable and blood pressure 109/63, heart rate is 77 beats per minute which is sinus. She is eating well and tolerating that well however she has constipation and ask for some laxative WBC is 11.4 K,, creatinine at baseline 1.7 Dr. Coppola evaluated patient for possible inpatient rehab, patient agrees Patient may be considered for transfer to general medical floor 10/09/2019 Patient lying comfortable in bed, no chest pain or dyspnea, she is tolerating diet well. Vitals are stable. WBC is trending down to 13 K, hemoglobin 7.3, creatinine is improving to 1.6. Chest x-ray: subsegmental areas of consolidation by laboratory are stable, related to postoperative atelectasis Patient has been having periods of bradycardia with public service representative evaluated patient and found her with bradycardia, periods of A. fib and with left bundle branch block and prolonged KS interval, with planning for placement of AICD device on Thursday Patient remains in the ICU for now 10/10/2019 Patient will be going for permanent pacemaker and AICD placement today patient had any of of around 20%. Patient does have leukocytosis. Patient was a evaluated by infectious disease no fever at this time. Patient was started on antifungal medications by infectious disease 10/11/2019 Patient was having severe constipation and some additional risk and urine patient was started on lactulose and mineral oil enema Constitutional: Denied any fatigue denied any fever. Cardio vascular: denied any chest pain, palpitations Gastrointestinal denied any nausea vomiting Pulmonary: Denied any shortness of breath cough Neurologic denied any new focal deficits All inpatient medications were reviewed and appropriate changes in these medications as dictated in the interval history and assessment and plan. Objective - Vital Signs Vital signs: Vital Signs Temp 97.8 F 10/11/19 12:00 Pulse 68 10/11/19 15:00 Resp 12 10/11/19 15:00 BP 112/48 10/11/19 15:00 Pulse Ox 96 10/11/19 15:00 Intake & Output 10/10/19 10/11/19 10/11/19 18:59 06:59 18:59 Intake Total 510 120 720 Output Total 680 650 400 Balance -170 -530 320 Weight 92.2 kg 92.2 kg Intake: IV 440 120 360 0.9 120 Ampicillin-Sulbactam 3 gm 100 In Sodium Chloride 0.9% 100 ml @ 200 mls/hr IVPB Q6HR [facility] Rx#:[id number] Anidulafungin 200 mg In 200 130 Sodium Chloride 0.9% 200 ml @ 84 mls/hr IVPB ONCE ONE Rx#:[id number] Sodium Chloride 0.9% 1, 240 120 10 000 ml @ 50 mls/hr IV . Q20H [facility] Rx#:[id number] Oral 70 50 Blood Product 310 Rc As-3 Unit 310 [id number] Output: Urine 600 650 400 Post Void Residual 80 Other: Voiding Method Bedside Commode Bedside Commode Bedside Commode # Voids 1 1 # Bowel Movements 1 1 1 ABP, PAP, CO, CI - Last Documented Arterial Blood Pressure 130/42 Pulmonary Artery Pressure 46/22 Cardiac Output 4.6 Cardiac Index 2.6 - Exam GENERAL: The patient is alert and oriented x3, not in any acute distress. Well d eveloped, well nourished. HEENT: Pupils are round and equally reacting to light. EOMI. No scleral icterus. No conjunctival pallor. Normocephalic, atraumatic. No pharyngeal erythema. No thyromegaly. -CARDIOVASCULAR: S1 and S2 present. No murmurs, rubs, or gallops. Sternal wound is in a dressing PULMONARY: Chest is clear to auscultation, no wheezing or crackles. ABDOMEN: Soft, nontender, nondistended, normoactive bowel sounds. No palpable organomegaly. MUSCULOSKELETAL: No joint swelling or deformity. EXTREMITIES: No cyanosis, clubbing, or pedal edema. NEUROLOGICAL: Gross neurological examination did not reveal any focal deficits. SKIN: No rashes. No petechiae - Labs CBC & Chem 7: 10/11/19 11:51 10/11/19 06:35 Labs: Abnormal Lab Results - Last 24 Hours (Table) 10/10/19 10/10/19 10/11/19 Range/Units 16:42 20:27 04:19 WBC 20.8 H (3.8-10.6) k/uL RBC 2.35 L (3.80-5.40) m/uL Hgb 6.5 L* (11.4-16.0) gm/dL Hct 21.2 L (34.0-46.0) % MCHC 30.7 L (31.0-37.0) g/dL RDW 19.7 H (11.5-15.5) % Neutrophils # 17.5 H (1.3-7.7) k/uL Chloride (98-107) mmol/L BUN (7-17) mg/dL Creatinine (0.52-1.04) mg/dL Glucose (74-99) mg/dL POC Glucose (mg/dL) 206 H 221 H (75-99) mg/dL ALT (4-34) U/L C-Reactive Protein (<10.0) mg/L Total Protein (6.3-8.2) g/dL Albumin (3.5-5.0) g/dL Crossmatch 10/11/19 10/11/19 10/11/19 Range/Units 04:19 06:35 06:35 WBC (3.8-10.6) k/uL RBC (3.80-5.40) m/uL Hgb (11.4-16.0) gm/dL Hct (34.0-46.0) % MCHC (31.0-37.0) g/dL RDW (11.5-15.5) % Neutrophils # (1.3-7.7) k/uL Chloride 108 H (98-107) mmol/L BUN 60 H (7-17) mg/dL Creatinine 1.71 H (0.52-1.04) mg/dL Glucose 114 H (74-99) mg/dL POC Glucose (mg/dL) (75-99) mg/dL ALT 45 H (4-34) U/L C-Reactive Protein 161.9 H (<10.0) mg/L Total Protein 5.1 L (6.3-8.2) g/dL Albumin 2.8 L (3.5-5.0) g/dL Crossmatch See Detail 10/11/19 10/11/19 10/11/19 Range/Units 06:44 11:51 12:10 WBC 21.7 H (3.8-10.6) k/uL RBC 2.87 L (3.80-5.40) m/uL Hgb 8.4 L D (11.4-16.0) gm/dL Hct 26.1 L (34.0-46.0) % MCHC (31.0-37.0) g/dL RDW 18.9 H (11.5-15.5) % Neutrophils # (1.3-7.7) k/uL Chloride (98-107) mmol/L BUN (7-17) mg/dL Creatinine (0.52-1.04) mg/dL Glucose (74-99) mg/dL POC Glucose (mg/dL) 132 H 105 H (75-99) mg/dL ALT (4-34) U/L C-Reactive Protein (<10.0) mg/L Total Protein (6.3-8.2) g/dL Albumin (3.5-5.0) g/dL Crossmatch Microbiology - Last 24 Hours (Table) 10/10/19 09:31 Blood Culture - Preliminary Blood No Growth after 24 hours 10/10/19 09:45 Blood Culture - Preliminary Blood No Growth after 24 hours Assessment and Plan Plan: coronary artery disease, status post 1 vessel bypass surgery Cardiac arrhythmia with periods of A. fib, bradycardia, left bundle branch block and Hypertension Diabetes mellitus Hyperlipidemia chronic kidney disease, stage III -Congestive heart failure chronic systolic dysfunction EF of around 20% with some acute exacerbation: Patient is going for pacemaker placement today History of coronary artery disease, status post stent placement GERD -severe constipation: Further management as mentioned above were those measures doesn't help patient will be started on GoLYTELY Severe mitral regurgitation, severe tricuspid regurgitation Severe pulmonary hypertension Hypothyroidism Sleep apnea on CPAP/BiPAP chronic
[2019-10-11 16:59] LABS: Glucose,Whole Blood 103 mg/dL (75-99)
[2019-10-11 20:31] LABS: Glucose,Whole Blood 80 mg/dL (75-99)
[2019-10-11 22:13] LABS: Glucose,Whole Blood 106 mg/dL (75-99)
[2019-10-11] MEDS: SENNOSIDES-DOCUSATE SODIUM 1 EACH TAB PO SCH (22:13)
[2019-10-12] MEDS: AMPICILLIN-SULBACTAM 3 GM in SODIUM CHLORIDE 0.9% 100 ML IVPB SCH ×3 (00:25→12:44)
[2019-10-12] MEDS: HEPARIN SODIUM,PORCINE 5,000 UNIT/ML 1 ML VIAL SQ SCH ×3 (00:25→18:35)
[2019-10-12 05:04] LABS: Anisocytosis Slight; Basophils % (A) 0 %; Eosinophils # (A) 0.4 k/uL (0-0.7); Eosinophils % (A) 2 %; HGB 8.2 gm/dL (11.4-16.0); Hypochromasia Moderate; Lymphocytes # (A) 1.8 k/uL (1.0-4.8); Lymphocytes % (A) 9 %; MCH 28.1 pg (25.0-35.0); MCHC 30.2 g/dL (31.0-37.0); MCV 92.8 fL (80.0-100.0); Macrocytosis Slight; Mean Platelet Volume 7.6; Monocytes # (A) 0.9 k/uL (0-1.0); Monocytes % (A) 5 %; Neutrophils # (A) 16.5 k/uL (1.3-7.7); Neutrophils % (A) 84 %; Platelet Count 342 k/uL (150-450); RDW 19.5 % (11.5-15.5); WBC 19.8 k/uL (3.8-10.6)
[2019-10-12 05:40] LABS: Calcium 9.1 mg/dL (8.4-10.2); Potassium 4.4 mmol/L (3.5-5.1); Total Bilirubin 0.9 mg/dL (0.2-1.3); Total Protein 5.7 g/dL (6.3-8.2)
[2019-10-12 05:58] LABS: C Reactive Protein 165.1 mg/L (<10.0)
[2019-10-12 06:21] LABS: Glucose,Whole Blood 69 mg/dL (75-99)
[2019-10-12] MEDS: INSULIN DETEMIR (LEVEMIR) 100 UNIT/ML SYR SQ SCH (06:29)
[2019-10-12] MEDS: INSULIN ASPART (NovoLOG) 100 UNIT/ML VIAL SQ SCH ×5 (06:29→18:36)
[2019-10-12 06:37] LABS: Glucose,Whole Blood 75 mg/dL (75-99)
[2019-10-12] MEDS: PANTOPRAZOLE 40 MG TABLET PO SCH (06:37)
[2019-10-12] MEDS: LEVOTHYROXINE 75 MCG TAB PO SCH (06:38)
[2019-10-12] MEDS: ASPIRIN 325 MG TAB PO SCH (08:05)
[2019-10-12] MEDS: ATORVASTATIN 40 MG TAB PO SCH (08:05)
[2019-10-12] MEDS: CLOPIDOGREL 75 MG TAB PO SCH (08:05)
[2019-10-12] MEDS: NYSTATIN 100,000 UNIT/ML SUSP 500,000 UNIT/5 ML CUP PO SCH ×3 (08:05→18:37)
[2019-10-12] MEDS: allopurinoL 300 MG TAB PO SCH (08:05)
[2019-10-12] MEDS: AMIODARONE 200 MG TAB PO SCH (08:05)
[2019-10-12] MEDS: METOPROLOL TARTRATE 12.5 MG TAB PO SCH (08:05)
[2019-10-12] MEDS: CITALOPRAM HYDROBROMIDE 20 MG TAB PO SCH (08:05)
[2019-10-12] MEDS: ANIDULAFUNGIN 100 MG in SODIUM CHLORIDE 0.9% 100 ML IVPB SCH (08:06)
[2019-10-12] MEDS: SPIRONOLACTONE 25 MG TAB PO SCH (08:10)
--- NOTE | 2019-10-12 08:25 | P.PN ---
Subjective Progress Note Date: 10/12/19 Principal diagnosis: Single vessel coronary artery disease, severe functional mitral valve regurgitation with mild tricuspid valve regurgitation and heart failure. Past medical history significant for hypertension, coronary artery disease with previous stent placement to her proximal left anterior descending coronary artery in 2017, hyperlipidemia, insulin-dependent diabetes mellitus poorly controlled with a preoperative hemoglobin A1c of 10.7%, morbid obesity, stage III chronic kidney disease with a baseline creatinine of 1.5, obstructive sleep apnea, pulmonary hypertension and preoperative urinary tract infection of Klebsiella pneumoniae which was treated. POD #9 single coronary artery bypass grafting using the left internal mammary artery to left anterior descending coronary artery, mitral valve repair using a reduction annuloplasty with a 28 mm physio-II ring, exclusion of the left atrial appendage using a 45 mm Atriclip, intraoperative graft flow measurements using the Mimiboard sytem, intraoperative epi-aortic scanning and transesophageal echocardiogram. Postoperative acute blood loss anemia, an expected outcome secondary to cardiopulmonary bypass and hemodilution. Postoperative second-degree type 2/third-degree heart block, an unexpected but potential outcome of surgery. Postoperative paroxysmal atrial fibrillation, an unexpected but potential out come of surgery. Postoperative leukocytosis, without fever and no obvious signs of infection. Postoperative constipation. The patient was seen today 10/12/2019 at her bedside in the intensive care unit. Patient is currently sitting up to the bedside chair in the intensive care unit, she is in no acute apparent distress. She is awake, alert and oriented 3 and reports that this is the best she has felt since her surgery. Currently denies any complaints of pain or shortness of breath. Yesterday 10/11/2019 she had continued complaints of constipation and was given lactulose and a mineral o il enema with good results. The patient was also having some urinary retention requiring intermittent straight catheterization, and she was also seen by Dr. Miller from urology. The patient remains afebrile, is hemodynamically stable and is currently on no inotropic pressure support. Hemoglobin was 6.5 yesterday and she received 1 unit of packed red blood cells. Lab results this morning show a WBC count of 19.8, hemoglobin 8.2, hematocrit 27.0, platelets 342, BUN 55, creatinine 1.78 and a CRP level of 165. Infectious disease is following the patient for her elevated WBC count and she was started on Unasyn for empiric coverage and is also on oral nystatin swish and swallow and Eraxis for oral thrush. Bedside telemetry showing normal sinus rhythm with left bundle branch block heart rate 70 bpm. Her biventricular ICD placement is currently on hold due to her elevated WBC count. The patient ambulated from her room to the shower this morning and back to her room without difficulty and minimal assistance from nursing staff. Oxygen saturations are 99% on 2 L nasal cannula and she is achieving 1250 mL on her incentive spirometry. Objective - Vital Signs Vital signs: Vital Signs Temp 98.6 F 10/12/19 04:00 Pulse 70 10/12/19 06:00 Resp 26 H 10/12/19 06:00 BP 102/74 10/12/19 06:00 Pulse Ox 94 L 10/12/19 06:00 Intake & Output 10/11/19 10/12/19 10/12/19 18:59 06:59 18:59 Intake Total 720 320 20 Output Total 400 300 150 Balance 320 20 -130 Weight 92.2 kg 92.5 kg Intake: IV 360 320 20 0.9 120 220 20 Ampicillin-Sulbactam 3 gm 100 100 In Sodium Chloride 0.9% 100 ml @ 200 mls/hr IVPB Q6HR [facility] Rx#:[id number] Anidulafungin 200 mg In 130 Sodium Chloride 0.9% 200 ml @ 84 mls/hr IVPB ONCE ONE Rx#:[id number] Sodium Chloride 0.9% 1, 10 000 ml @ 50 mls/hr IV . Q20H [facility] Rx#:[id number] Oral 50 Blood Product 310 Rc As-3 Unit 310 [id number] Output: Urine 400 300 150 Other: Voiding Method Bedside Commode Bedside Commode # Voids 1 0 1 # Bowel Movements 1 1 1 ABP, PAP, CO, CI - Last Documented Arterial Blood Pressure 130/42 Pulmonary Artery Pressure 46/22 Cardiac Output 4.6 Cardiac Index 2.6 - Exam This is a pleasant 68-year-old female patient who currently sitting up to the bedside chair in the intensive care unit. She is in no apparent acute distress, she is awake, alert and oriented 3. Oxygen saturation are 99 % on 2 L nasal cannula. - Constitutional General appearance: Present: cooperative, morbidly obese, no acute distress - EENT Eyes: Absent: scleral icterus ENT: Present: hearing grossly normal, thrush (Resolving) - Neck Neck: Absent: lymphadenopathy, stridor - Respiratory Details: Lung sounds are essentially clear to her bilateral upper lobes, diminished bilat eral bases. No wheezes, crackles or rhonchi. Respirations are symmetrical and nonlabored. Oxygen saturation is 99% on 2 L nasal cannula. Achieving 1250 mL on her incentive spirometry with much encouragement. - Cardiovascular Details: Regular rhythm and rate. S1 and S2 present, negative for S3, gallop or murmur. Sternum is stable. Bedside telemetry is showing normal sinus rhythm with left bundle branch block heart rate 70 bpm. Atrial and ventricular epicardial pacemaker wires were placed and connected to a backup pacemaker generator on a VVI 50. Heart hugger is in place and she is demonstrating appropriate use with encouragement. Knee-high KARTHIKEYAN hose and sequential compression devices in place to bilateral lower extremities. - Gastrointestinal Gastrointestinal Comment(s): Abdomen is soft, nontender nondistended. Active bowel sounds present all 4 abdominal quadrants. No guarding or rigidity. No organomegaly appreciated. Tolerating oral intake. Bowel movement yesterday 10/12/2019. - Genitourinary Genitourinary Comment(s): Continued urinary retention with postvoid residual this morning 640 mL. - Integumentary Integumentary Comment(s): Skin is warm and dry. No clubbing or cyanosis is present. No rash present. Midline sternal incision is clean, dry and approximated. No drainage or redness is present. Exofin dressing is clean, dry and in place. Gauze dressing is clean, dry and place. - Neurologic Neurologic: Present: CNII-XII intact - Musculoskeletal Musculoskeletal: Present: gait normal, generalized weakness, strength equal bilaterally - Psychiatric Psychiatric: Present: A&O x's 3, appropriate affect, intact judgment & insight - Allied health notes Allied health notes reviewed: nursing - Labs CBC & Chem 7: 10/12/19 04:12 10/12/19 04:12 Labs: Abnormal Lab Results - Last 24 Hours (Table) 10/11/19 10/11/19 10/11/19 Range/Units 06:35 11:51 12:10 WBC 21.7 H (3.8-10.6) k/uL RBC 2.87 L (3.80-5.40) m/uL Hgb 8.4 L D (11.4-16.0) gm/dL Hct 26.1 L (34.0-46.0) % MCHC (31.0-37.0) g/dL RDW 18.9 H (11.5-15.5) % Neutrophils # (1.3-7.7) k/uL Chloride (98-107) mmol/L Carbon Dioxide (22-30) mmol/L BUN (7-17) mg/dL Creatinine (0.52-1.04) mg/dL Glucose (74-99) mg/dL POC Glucose (mg/dL) 105 H (75-99) mg/dL ALT (4-34) U/L C-Reactive Protein (<10.0) mg/L Total Protein (6.3-8.2) g/dL Albumin (3.5-5.0) g/dL Crossmatch See Detail 10/11/19 10/11/19 10/12/19 Range/Units 16:58 22:11 04:12 WBC 19.8 H (3.8-10.6) k/uL RBC 2.90 L (3.80-5.40) m/uL Hgb 8.2 L (11.4-16.0) gm/dL Hct 27.0 L (34.0-46.0) % MCHC 30.2 L (31.0-37.0) g/dL RDW 19.5 H (11.5-15.5) % Neutrophils # 16.5 H (1.3-7.7) k/uL Chloride (98-107) mmol/L Carbon Dioxide (22-30) mmol/L BUN (7-17) mg/dL Creatinine (0.52-1.04) mg/dL Glucose (74-99) mg/dL POC Glucose (mg/dL) 103 H 106 H (75-99) mg/dL ALT (4-34) U/L C-Reactive Protein (<10.0) mg/L Total Protein (6.3-8.2) g/dL Albumin (3.5-5.0) g/dL Crossmatch 10/12/19 10/12/19 Range/Units 04:12 06:19 WBC (3.8-10.6) k/uL RBC (3.80-5.40) m/uL Hgb (11.4-16.0) gm/dL Hct (34.0-46.0) % MCHC (31.0-37.0) g/dL RDW (11.5-15.5) % Neutrophils # (1.3-7.7) k/uL Chloride 109 H (98-107) mmol/L Carbon Dioxide 19 L (22-30) mmol/L BUN 55 H (7-17) mg/dL Creatinine 1.78 H (0.52-1.04) mg/dL Glucose 65 L (74-99) mg/dL POC Glucose (mg/dL) 69 L (75-99) mg/dL ALT 35 H (4-34) U/L C-Reactive Protein 165.1 H (<10.0) mg/L Total Protein 5.7 L (6.3-8.2) g/dL Albumin 3.0 L (3.5-5.0) g/dL Crossmatch Microbiology - Last 24 Hours (Table) 10/10/19 09:31 Blood Culture - Preliminary Blood No Growth after 24 hours 10/10/19 09:45 Blood Culture - Preliminary Blood No Growth after 24 hours Assessment and Plan Assessment: 1. Single-vessel coronary artery disease, status post single vessel coronary artery bypass grafting REYES to the left anterior descending coronary artery 2. Severe functional mitral valve regurgitation, status post mitral valve repair using a reduction annuloplasty with a 28 mm physio-II ring 3. Mild tricuspid valve regurgitation 4. Acute on chronic systolic heart failure, with a preoperative ejection fraction of 35-40% 5. History of coronary artery disease with previous stent placement to her left anterior descending coronary artery in 2017 6. Hypertension 7. Dyslipidemia 8. Poorly controlled insulin-dependent diabetes mellitus with a preoperative hemoglobin A1c of 10.7% 8. Ischemic cardiomyopathy 9. Pulmonary hypertension, likely related to valvular disease 10. Stage III chronic kidney disease with a baseline creatinine of 1.5 11. Obstructive sleep apnea 12. Preoperative urinary tract infection of Klebsiella pneumoniae, treated 13. Morbid obesity 14. Postoperative acute blood loss anemia 15. Postoperative second-degree type 2/third-degree heart block, an unexpected but potential outcome of surgery 16. Postoperative paroxysmal atrial fibrillation, an unexpected but potential outcome of surgery 17. Postoperative leukocytosis, without fever and no obvious signs of infection 18. Postoperative urinary retention 19. Postoperative constipation Plan: 1. Continue aspirin, statin, Plavix, and beta anaid. 2. Encourage incentive spirometry 10 times every hour while awake. 3. Bronchodilators per pulmonology management. 4. Increase activity, out of bed for all meals. PT/OT/cardiac rehab following. 5. Will monitor daily labs and chest x-rays. Electrolyte replacement per protocol. 6. Pain controlled current medication regimen. Avoid NSAIDs due to the patient's renal function. 7. Insulin management per primary care service. 8. Biventricular ICD placement on hold at this time due to her elevated white count. Dr. Kendall from cardiology is following. 9. Place Hinkle catheter for continued urinary retention and postvoid residual greater than 600 this morning. 10. Continue Cozaar 25 mg by mouth daily at noon for afterload reduction and increase Aldactone to 25 mg by mouth daily. 11. Continue amiodarone 400 mg by mouth twice a day for atrial fibrillation prophylaxis. 12. General surgery was consulted yesterday for her constipation. 13. Continue antibiotic, managed by Dr. Ocasio from infectious disease. 14. Dr. Miller from urology consult noted and appreciated. 15. Blood culture showed no growth after 24 hours. 16. Keep atrial and ventricular epicardial pacemaker wires in place and connected to bedside pacemaker generator on a VVI 50. 18. More recommendations to follow based on patient's clinical course. Time with Patient: Greater than 30
[2019-10-12] MEDS: IPRATROPIUM-ALBUTEROL 3 ML NEB INHALATION SCH ×4 (08:31→20:07)
[2019-10-12] MEDS ORDERED: SPIRONOLACTONE 25 MG TAB PO SCH (09:00)
--- NOTE | 2019-10-12 09:03 | P.PN ---
Subjective Progress Note Date: 10/12/19 Principal diagnosis: Status post CABG, mitral valve repair, postoperative day #7 68-year-old of Dr. Moore, with past medical history of coronary artery disease with previous stenting of the LAD in 2017, hypertension, hyperlipidemia, insulin-dependent diabetes mellitus, morbid obesity, stage III chronic kidney disease, pulmonary hypertension, family history of hypertension and diabetes. Patient was hospitalized last November 2018 when she presented with complaints of severe, constant, sharp chest pain with left arm radiation. Patient had echocardiogram that showed a moderately impaired LV function with EF of 35-40%, mild aortic regurgitation, mild mitral annular calcification and moderate to severe mitral regurgitation. There was evidence of severe pulmonary hyperten aniyah and moderate tricuspid regurg. Patient went on to have cardiac catheterization that showed LAD stenosis of 70% in the proximal portion. [place] showed EF of 35-40%, severe mitral regurgitation, with a dilated annulus and poor coaptation of the mitral leaflets and moderate to severe tricuspid regu rgitation. She was referred to CT surgery for surgical evaluation, and it took her several months to obtain dental clearance, and optimize her diabetes. Today on 10/03/2019 patient had a one-vessel bypass with REYES to LAD, and mitral valve repair, his occlusion of the left atrial appendage. She is seen in the postoperative period in the intensive care unit, she is intubated, sedated on mechanical ventilator, current vent settings assist control mode with a rate of 16, tidal vital 350, FiO2 50% and PEEP of 8. Current drips include 0.9 normal saline at a rate of 50, Primacor at 0.3 mics per kilo per minute, levo fed at 0.04 mics per kilo per minute, insulin drip, and Diprivan at 20 mics per kilo per minute. PA pressure is 48/27, CVP 13, cardiac output and index are 4.6 and 2.6 respectively, AV wires in place, patient is on VVI Mode and is currently pacing at 100%. 2 mediastinal chest tubes with 130 mL of sanguinous output, left pleural and right pleural with 120 and 50 ML of sanguinous output respectively. Postop blood work shows a white blood cell count of 12.3, hemoglobin of 8.7, sodium is 136, the rest of electrolytes are within normal limits, BUN 62 and creatinine is 1.74. Patient was reevaluated today on 10/04/19, patient was extubated around 4 AM this morning. He tolerated the extubation quite well. Presently on IV fluid at 50 mL per hour. Patient has intermittent episodes of confusion. Remains on Primacor at 0. one 5 mcg/kg/m. Patient is paced with VVI pacemaker at 50 bpm. Her cardiac index is 2.8, cardiac output is 5 CVP is 10. Chest x-ray showed minimal atelectasis at the bases. Patient had REYES to LAD, mitral valve repair and she again she is postoperative day #1. Patient is on 6 L high flow nasal cannula. O2 saturations 98%. Achieving 500 mL on her incentive spirometer. She has noted some surgical type of pain at the side of her chest tube insertion, and mostly when taking a deep breath. Denies shortness of breath. Mediastinal right and left pleural chest tubes remain in place. On continuous wall suction. No air leak. Draining thin serosanguineous drainage with the 130 mL output in the last 8 hours and 300 mL output since surgery from the mediastinal chest tubes. Patient was reevaluated today on 10/05/19, patient remains sitting in bed, doing well, no specific complaints. She is oriented [address] mostly [address] and place. Not oriented to time. Denies any complaints, she has some vague chest pain upon taking a deep breath. She is hemodynamically stable, not requiring any pressors. Her cardiac index is 2.6, cardiac output is 4.6. CVP is 14. Chest x-ray showed minimal atelectasis at the bases especially at the left base. Patient remains on 4 L nasal cannula, and O2 saturations 96%. She is achieving about 500 MLS her incentive spirometer. Her mediastinal left and right pleural chest tubes remained in place, no air leak noted. Drainage was noted, amount is becoming less and less over the last 2 days. She had a T-max of 99.7. Otherwise the patient is doing great. She does seem to be globally weak Patient was reevaluated today on 10/06/19, remains in the ICU, patient is sitting in a recliner. Denies any shortness of breath, no cough no wheezing, presently she has sinus rhythm and a second-degree AV block, hemodynamically stable, not requiring any pressors and at night she went into controlled atrial fib rillation. Placed on amiodarone and she remains on protocol this morning. Dr. Tavarez was consulted regarding her arrhythmia. He is recommending switching patient to oral amiodarone. Low-dose beta blockers and possibly eventually placed the patient back on her Coreg twice a day. No plans at least at this point to place a permanent pacer. He will assess the patient on outpatient basis chest x-ray today showed mostly left basilar atelectasis. Reevaluated today on 11/03/19, patient is doing quite well. Remains in the ICU, in no distress, denies any shortness of breath or pain. Heart rate is in the low 60s and 70s, patient is in atrial fibrillation. Hemodynamically stable. And she is doing better with incentive spirometry. Chest x-ray continues to show minimal left basilar atelectasis. Reevaluated today on 10/08/19, patient is doing fairly well, asymptomatic, chest x-ray is showing improvement, continues to have issues related to her intermittent episodes of cardiac arrhythmia. Patient is not requiring any inotropes. She is hemodynamically stable. Patient is presently in atrial fibrillation, she is on 2 L nasal cannula. And she is being considered for AICD placement next Thursday. Patient was reevaluated today on 10/09/19, remains in the ICU, but the patient is doing great. Sitting at a bedside chair, awake oriented 3, basically asymptomatic. Chest x-ray seems to be reassuring. Telemetry shows atrial fibrillation with left bundle branch block, rate is 84. O2 saturations 95% on 2 L. Doing much better with incentive spirometer. On 10/10/2019 patient is seen in follow-up in the intensive care unit, she is awake and alert, in no acute distress, she is resting comfortably in bed, she is currently on 2 L of oxygen, her pulse ox is 9200%, vital signs are stable, she is afebrile, she is in sinus mechanism on the monitor, with a rate of 62. No acute events overnight, her chest tubes have been discontinued, her AV wires are in place connected to external pacemaker with backup rate of 50, intrinsic rhythm is sinus, with a rate of 62. Patient has been nothing by mouth since midnight, she is scheduled for pacemaker/AICD placement today, she denies any pulmonary complaints, denies any shortness of breath, her pain is under good control, lung sounds are clear to auscultation, patient is working on incentive spirometer, effort to the 750 ML. Today's chest x-ray has been reviewed showing subsegmental areas of consolidation bilaterally that are stable in appearance and likely related to postoperative atelectasis. These labs have been reviewed showing white blood cell, 17.1, hemoglobin of 7.2, electrolytes are within normal limits, BUN of 55 and creatinine is 1.76. Patient has been tolerating ambulation in the hallway. On 10/11/2019 patient seen in follow-up in the intensive care unit, she is resting in bed, in no acute distress, she is on 2 L of oxygen pulse ox of 97%, she has been afebrile, hemodynamically patient is stable, sinus rhythm on mo nitor, AV wires connected to external pacemaker with backup rate of 50. Yesterday patient's pacemaker/AICD placement was delayed related to leukocytosis. Today's labs have been reviewed and with blood cell count has trended further up to 20.8, hemoglobin is 6.5, platelet count is 325, sodium is 141, potassium is 4.5, chloride is 108, CO2 is 24, B1 is 60 and creatinine is 1.71. Patient denies any shortness of breath, she is working on incentive spirometer, her effort today is about 750 ML. Lung sounds are positive for bibasilar crackles, no rhonchi no wheezing, patient will nonproductive cough. Urinalysis was sent yesterday and results show no evidence of infection. His chest x-ray shows left basilar atelectasis, no evidence of consolidation or pneumonia. Cultures have been sent and pending. Rashes disease has been consulted, and patient has been placed on Eraxis, and oral nystatin. On 10/12/2019 patient seen in follow-up in the intensive care unit, today she is awake and alert, she sitting up in the recliner, in no acute distress, she is on 2 L of oxygen the pulse ox of 96%, denies any specific complaints, she is working incentive spirometer, achieving 750 on it today. Lung sounds are clear, no rhonchi, no wheezing. She has been tolerating ambulation. No complaints of nausea vomiting or diarrhea, abdomen is soft, nontender. Patient is hemodynamically stable, in sinus mechanism with a controlled rate. No fever or chills, his labs have been reviewed, showing with the toco 919.8, hemoglobin of 8.2, platelet count 342, sodium is 137, potassium is 4.4, chloride is 109, CO2 is 19, B1 55 and creatinine 1.78. Urine culture is negative, blood cultures are negative thus far showing no growth at the 24-hour abilio. Still unclear the source of leukocytosis, ID service is following, patient is on oral nystatin and Eraxis. No evidence of oropharyngeal thrush. Midsternal incision clean dry and intact, Objective - Vital Signs Vital signs: Vital Signs Temp 98.6 F 10/12/19 04:00 Pulse 69 10/12/19 08:46 Resp 26 H 10/12/19 06:00 BP 102/74 10/12/19 06:00 Pulse Ox 94 L 10/12/19 06:00 Intake & Output 10/11/19 10/12/19 10/12/19 18:59 06:59 18:59 Intake Total 720 320 20 Output Total 400 800 150 Balance 320 -480 -130 Weight 92.2 kg 92.5 kg Intake: IV 360 320 20 0.9 120 220 20 Ampicillin-Sulbactam 3 gm 100 100 In Sodium Chloride 0.9% 100 ml @ 200 mls/hr IVPB Q6HR [facility] Rx#:[id number] Anidulafungin 200 mg In 130 Sodium Chloride 0.9% 200 ml @ 84 mls/hr IVPB ONCE ONE Rx#:[id number] Sodium Chloride 0.9% 1, 10 000 ml @ 50 mls/hr IV . Q20H [facility] Rx#:[id number] Oral 50 Blood Product 310 Rc As-3 Unit 310 [id number] Output: Urine 400 300 150 Post Void Residual 500 Other: Voiding Method Bedside Commode Bedside Commode # Voids 1 0 1 # Bowel Movements 1 1 1 ABP, PAP, CO, CI - Last Documented Arterial Blood Pressure 130/42 Pulmonary Artery Pressure 46/22 Cardiac Output 4.6 Cardiac Index 2.6 - Exam GENERAL EXAM: Alert, very pleasant, 68-year-old female, on 2 L of oxygen with pulse ox of 97%, comfortable in no apparent distress. HEAD: Normocephalic/atraumatic. EYES: Normal reaction of pupils, equal size. Conjunctiva pink, sclera white. NOSE: Clear with pink turbinates. THROAT: No erythema or exudates. NECK: No masses, no JVD, no thyroid enlargement, no adenopathy. CHEST: No chest wall deformity. Symmetrical expansion. Midsternal incision, clean dry and intact, chest tube sites are clean dry and intact, AV wires in place, connected to an external pacemaker with a backup rate of 50, intrinsic rhythm is sinus rhythm with a right lung base clinic with a rate of 62 BPM LUNGS: Equal air entry with no crackles, wheeze, rhonchi or dullness. CVS: Regular rate and rhythm, normal S1 and S2, no gallops, no murmurs, no rubs ABDOMEN: Soft, nontender. No hepatosplenomegaly, normal bowel sounds, no guarding or rigidity. EXTREMITIES: No clubbing, no edema, no cyanosis, 2+ pulses and upper and lower extremities. MUSCULOSKELETAL: Muscle strength and tone normal. SPINE: No scoliosis or deformity SKIN: No rashes CENTRAL NERVOUS SYSTEM: Alert and oriented -3. No focal deficits, tone is normal in all 4 extremities. PSYCHIATRIC: Alert and oriented -3. Appropriate affect. Intact judgment and insight. - Labs CBC & Chem 7: 10/12/19 04:12 10/12/19 04:12 Labs: Abnormal Lab Results - Last 24 Hours (Table) 10/11/19 10/11/19 10/11/19 Range/Units 06:35 11:51 12:10 WBC 21.7 H (3.8-10.6) k/uL RBC 2.87 L (3.80-5.40) m/uL Hgb 8.4 L D (11.4-16.0) gm/dL Hct 26.1 L (34.0-46.0) % MCHC (31.0-37.0) g/dL RDW 18.9 H (11.5-15.5) % Neutrophils # (1.3-7.7) k/uL Chloride (98-107) mmol/L Carbon Dioxide (22-30) mmol/L BUN (7-17) mg/dL Creatinine (0.52-1.04) mg/dL Glucose (74-99) mg/dL POC Glucose (mg/dL) 105 H (75-99) mg/dL ALT (4-34) U/L C-Reactive Protein (<10.0) mg/L Total Protein (6.3-8.2) g/dL Albumin (3.5-5.0) g/dL Crossmatch See Detail 10/11/19 10/11/19 10/12/19 Range/Units 16:58 22:11 04:12 WBC 19.8 H (3.8-10.6) k/uL RBC 2.90 L (3.80-5.40) m/uL Hgb 8.2 L (11.4-16.0) gm/dL Hct 27.0 L (34.0-46.0) % MCHC 30.2 L (31.0-37.0) g/dL RDW 19.5 H (11.5-15.5) % Neutrophils # 16.5 H (1.3-7.7) k/uL Chloride (98-107) mmol/L Carbon Dioxide (22-30) mmol/L BUN (7-17) mg/dL Creatinine (0.52-1.04) mg/dL Glucose (74-99) mg/dL POC Glucose (mg/dL) 103 H 106 H (75-99) mg/dL ALT (4-34) U/L C-Reactive Protein (<10.0) mg/L Total Protein (6.3-8.2) g/dL Albumin (3.5-5.0) g/dL Crossmatch 10/12/19 10/12/19 Range/Units 04:12 06:19 WBC (3.8-10.6) k/uL RBC (3.80-5.40) m/uL Hgb (11.4-16.0) gm/dL Hct (34.0-46.0) % MCHC (31.0-37.0) g/dL RDW (11.5-15.5) % Neutrophils # (1.3-7.7) k/uL Chloride 109 H (98-107) mmol/L Carbon Dioxide 19 L (22-30) mmol/L BUN 55 H (7-17) mg/dL Creatinine 1.78 H (0.52-1.04) mg/dL Glucose 65 L (74-99) mg/dL POC Glucose (mg/dL) 69 L (75-99) mg/dL ALT 35 H (4-34) U/L C-Reactive Protein 165.1 H (<10.0) mg/L Total Protein 5.7 L (6.3-8.2) g/dL Albumin 3.0 L (3.5-5.0) g/dL Crossmatch Microbiology - Last 24 Hours (Table) 10/10/19 09:31 Blood Culture - Preliminary Blood No Growth after 24 hours 10/10/19 09:45 Blood Culture - Preliminary Blood No Growth after 24 hours Assessment and Plan Plan: Assessment: #1. Coronary artery disease, severe mitral regurgitation, status post 1 vessel bypass REYES to LAD, and mitral valve repair, left atrial appendage exclusion, postoperative day 9 #2. Leukocytosis, unspecified, rule out infectious process, but cultures are pending, patient is afebrile, urinalysis without any sign of infection, chest x- ray showing cardiomegaly, possible left basilar atelectasis, right lung is clear #3. Chronic congestive heart failure, systolic in nature #4. Post-op of cardiac arrhythmia, presently in sinus mechanism with right bundle branch block, and placement of pacemaker/AICD #5. Acute blood loss anemia, expected outcome of bypass and mitral valve repair surgery #6 Chronic kidney disease #7. Recent history of urinary tract infection, with urine culture positive for Klebsiella pneumonia treated with ciprofloxacin #8. Normal preop spirometry with FEV1 of 92% of predicted #9. History of diabetes mellitus, poorly controlled #10. Hypertension #11. Hyperlipidemia #12. Previous stenting of the LAD 2017 #13. Ischemic cardiomyopathy with LV function of 35-40% #14. Pulmonary hypertension likely related to valvular heart disease #15. Family history of hypertension and diabetes Plan: Continue current medical management, blood cultures are negative, urinalysis is without sign of infection, ID service is following, patient continues on a combination of nystatin and eRAXIS, no clear source of leukocytosis, patient has been afebrile, hemodynamically stable. Acute events overnight, continue encouraging deep breathing and coughing. Will await further recommendations in terms of pacemaker placement or whether he will be on hold for now. We'll continue to closely follow. I performed a history & physical examination of the patient and discussed their management with my nurse practitioner, Ashlee Elaine. I reviewed the nurse practitioner's note and agree with the documented findings and plan of care. Lung sounds are positive for diminished breath sounds. The findings and the impression was discussed with the patient. I attest to the documentation by the nurse practitioner. Time with Patient: Less than 30
--- NOTE | 2019-10-12 11:39 | PN ---
PROGRESS NOTE Mrs. Mcmillan was seen yesterday for urine retention. This was associated with fecal impaction. The patient is 8 days status post coronary artery bypass graft and mitral valve revision. She is unable to void. Historically, she was not having any problems prior to this. It was my impression that due to her mental and physical state of weakness as well as the impaction, this was why she could not urinate. My recommendation was to leave the Hinkle catheter indwelling until the bowels are moving regularly and she is ambulatory. I think the in and out catheter will create more trauma and greater risk for infection. I would recommend leaving the catheter in for at least another 24-48 hours if she is improved today. When she is ambulatory, moving her bowels and feels well, then I think it would be reasonable to remove the catheter. Please contact me for further request. HIEU / SALMA: [id number] /
[2019-10-12] MEDS ORDERED: FERROUS SULFATE 325 MG TAB PO SCH (12:30)
[2019-10-12 12:32] LABS: Glucose,Whole Blood 115 mg/dL (75-99)
[2019-10-12] MEDS: LOSARTAN 25 MG TAB PO SCH (12:44)
--- NOTE | 2019-10-12 13:12 | P.PN ---
Subjective 68 years old female with past medical history of coronary artery disease, heart failure status post stent placement, diabetes mellitus, GERD, hypertension, hyperlipidemia, sleep apnea on CPAP/BiPAP, hypothyroidism. She is a status post 1 vessel bypass surgery and today postop day #1. She also got extubated today and currently she is on nasal cannula at 4 L/m was saturating 95-98%, patient denies chest pain or dyspnea except as surgical site which is expected. Rest of Vitas looks stable. Labs reviewed showed mild leukocytosis of 12 K, INR is normal, sugar controlled, creatinine 1.9 (baseline 1.4-2.0) Chest x-ray: Improved radiation Patient is currently on aspirin, metoprolol, oral levothyroxine, Protonix 10/05/2019 Patient remains in the ICU with no chest pain or dyspnea. However today her blood pressure dropped with physical therapy session went down to 80/40, patient brought back on lying position in the chair, she was fully awake and oriented however she looked pale with no chest pain or dyspnea. Recheck blood pressure show improvement, please see records. Progressive vitals are stable. Sugar controlled 141-152 today her chest tube and swelling Came out 10/06/2019 Patient is awake and alert, looks tired but she denies chest pain or dyspnea and vitals are stable. Sugar controlled and WBC is trending down to 11.6 K. Creatinine down to 1.7. Patient was on insulin drip which could be stopped, patient is eating. Resume her Levemir 15 units twice a day (was 22 units at home) and 3 units with meals (was 6 units at home), keep insulin sliding scale. Cardiology team also following the case today. 10/07/2019 Patient is up in chair, no dizziness, blood pressure is a stable at 117/66. No postural symptoms. She was sitting and eating in bed with no difficulty. She still have some pain in the surgical site which is expected. Mild Leukocytosis of 12.4 K. Creatinine 1.8 him at baseline. Sugar control, continue with same regimen 10/08/19 Patient is in chair, no chest pain, no dizziness. Breathing quietly. Vitas looks stable and blood pressure 109/63, heart rate is 77 beats per minute which is sinus. She is eating well and tolerating that well however she has constipation and ask for some laxative WBC is 11.4 K,, creatinine at baseline 1.7 Dr. Coppola evaluated patient for possible inpatient rehab, patient agrees Patient may be considered for transfer to general medical floor 10/09/2019 Patient lying comfortable in bed, no chest pain or dyspnea, she is tolerating diet well. Vitals are stable. WBC is trending down to 13 K, hemoglobin 7.3, creatinine is improving to 1.6. Chest x-ray: subsegmental areas of consolidation by laboratory are stable, related to postoperative atelectasis Patient has been having periods of bradycardia with core shaper evaluated patient and found her with bradycardia, periods of A. fib and with left bundle branch block and prolonged [place] interval, with planning for placement of AICD device on Thursday Patient remains in the ICU for now 10/10/2019 Patient will be going for permanent pacemaker and AICD placement today patient had any of of around 20%. Patient does have leukocytosis. Patient was a evaluated by infectious disease no fever at this time. Patient was started on antifungal medications by infectious disease 10/11/2019 Patient was having severe constipation and some additional risk and urine patient was started on lactulose and mineral oil enema 10/12/2019 Patient is cost patient resolved after manual disimpaction. Creatinine remained stable leukocytosis improving. Constitutional: Denied any fatigue denied any fever. Cardio vascular: denied any chest pain, palpitations Gastrointestinal denied any nausea vomiting Pulmonary: Denied any shortness of breath cough Neurologic denied any new focal deficits All inpatient medications were reviewed and appropriate changes in these medications as dictated in the interval history and assessment and plan. Objective - Vital Signs Vital signs: Vital Signs Temp 97.7 F 10/12/19 08:00 Pulse 60 10/12/19 12:00 Resp 14 10/12/19 12:00 BP 127/54 10/12/19 12:00 Pulse Ox 96 10/12/19 09:48 Intake & Output 10/11/19 10/12/19 10/12/19 18:59 06:59 18:59 Intake Total 720 320 320 Output Total 400 800 897 Balance 320 480 577 Weight 92.2 kg 92.5 kg Intake: IV 360 320 320 0.9 120 220 120 Ampicillin-Sulbactam 3 gm 100 100 100 In Sodium Chloride 0.9% 100 ml @ 200 mls/hr IVPB Q6HR [facility] Rx#:[id number] Anidulafungin 100 mg In 100 Sodium Chloride 0.9% 100 ml @ 84 mls/hr IVPB DAILY [facility] Rx#:[id number] Anidulafungin 200 mg In 130 Sodium Chloride 0.9% 200 ml @ 84 mls/hr IVPB ONCE ONE Rx#:[id number] Sodium Chloride 0.9% 1, 10 000 ml @ 50 mls/hr IV . Q20H [facility] Rx#:[id number] Oral 50 Blood Product 310 Rc As-3 Unit 310 [id number] Output: Urine 400 300 897 Post Void Residual 500 Other: Voiding Method Bedside Commode Bedside Commode Bedside Commode # Voids 1 0 1 # Bowel Movements 1 1 1 ABP, PAP, CO, CI - Last Documented Arterial Blood Pressure 130/42 Pulmonary Artery Pressure 46/22 Cardiac Output 4.6 Cardiac Index 2.6 - Exam GENERAL: The patient is alert and oriented x3, not in any acute distress. Well developed, well nourished. HEENT: Pupils are round and equally reacting to light. EOMI. No scleral icterus. No conjunctival pallor. Normocephalic, atraumatic. No pharyngeal erythema. No thyromegaly. -CARDIOVASCULAR: S1 and S2 present. No murmurs, rubs, or gallops. Sternal wound is in a dressing PULMONARY: Chest is clear to auscultation, no wheezing or crackles. ABDOMEN: Soft, nontender, nondistended, normoactive bowel sounds. No palpable organomegaly. MUSCULOSKELETAL: No joint swelling or deformity. EXTREMITIES: No cyanosis, clubbing, or pedal edema. NEUROLOGICAL: Gross neurological examination did not reveal any focal deficits. SKIN: No rashes. No petechiae - Labs CBC & Chem 7: 10/12/19 04:12 10/12/19 04:12 Labs: Abnormal Lab Results - Last 24 Hours (Table) 10/11/19 10/11/19 10/12/19 Range/Units 16:58 22:11 04:12 WBC 19.8 H (3.8-10.6) k/uL RBC 2.90 L (3.80-5.40) m/uL Hgb 8.2 L (11.4-16.0) gm/dL Hct 27.0 L (34.0-46.0) % MCHC 30.2 L (31.0-37.0) g/dL RDW 19.5 H (11.5-15.5) % Neutrophils # 16.5 H (1.3-7.7) k/uL Chloride (98-107) mmol/L Carbon Dioxide (22-30) mmol/L BUN (7-17) mg/dL Creatinine (0.52-1.04) mg/dL Glucose (74-99) mg/dL POC Glucose (mg/dL) 103 H 106 H (75-99) mg/dL ALT (4-34) U/L C-Reactive Protein (<10.0) mg/L Total Protein (6.3-8.2) g/dL Albumin (3.5-5.0) g/dL 10/12/19 10/12/19 10/12/19 Range/Units 04:12 06:19 12:30 WBC (3.8-10.6) k/uL RBC (3.80-5.40) m/uL Hgb (11.4-16.0) gm/dL Hct (34.0-46.0) % MCHC (31.0-37.0) g/dL RDW (11.5-15.5) % Neutrophils # (1.3-7.7) k/uL Chloride 109 H (98-107) mmol/L Carbon Dioxide 19 L (22-30) mmol/L BUN 55 H (7-17) mg/dL Creatinine 1.78 H (0.52-1.04) mg/dL Glucose 65 L (74-99) mg/dL POC Glucose (mg/dL) 69 L 115 H (75-99) mg/dL ALT 35 H (4-34) U/L C-Reactive Protein 165.1 H (<10.0) mg/L Total Protein 5.7 L (6.3-8.2) g/dL Albumin 3.0 L (3.5-5.0) g/dL Microbiology - Last 24 Hours (Table) 10/10/19 09:31 Blood Culture - Preliminary Blood No Growth after 48 hours 10/10/19 09:45 Blood Culture - Preliminary Blood No Growth after 48 hours Assessment and Plan Plan: coronary artery disease, status post 1 vessel bypass surgery Cardiac arrhythmia with periods of A. fib, bradycardia, left bundle branch block and Hypertension Diabetes mellitus Hyperlipidemia chronic kidney disease, stage III -Congestive heart failure chronic systolic dysfunction EF of around 20% with some acute exacerbation: Patient is going for pacemaker placement today History of coronary artery disease, status post stent placement GERD -severe constipation: Further management as mentioned above were those measures doesn't help patient will be started on GoLYTELY Severe mitral regurgitation, severe tricuspid regurgitation Severe pulmonary hypertension Hypothyroidism Sleep apnea on CPAP/BiPAP chronic
--- NOTE | 2019-10-12 14:09 | P.PN ---
Subjective Progress Note Date: 10/12/19 This is a 68-year-old female with history of single-vessel coronary artery disease and mitral regurgitation, status post bypass surgery and mitral valve repair. Patient also has underlying atrial fibrillation with left bundle-branch block pattern. Patient developed bradycardia after she was treated with IV amiodarone. Patient is off amiodarone at this time. She is a small dose of beta anaid. Her heart rate is controlled without any significant bradyarrhythmias. Patient is sitting up in the chair and seems to be stable. Complain some mild chest pain but no shortness of breath. Lungs show some diminished breath sounds at bases and few rhonchi. Heart is irregular. Overall patient's critical status seemed to be stable. We'll continue current medical therapy. Increase activity and possible transfer to telemetry unit. Continue monitoring for any significant bradyarrhythmias. 10/08/2019: This patient seemed to be much stable. Patient is back in sinus rhythm. Denies any significant chest pain or shortness of breath. Tolerating activity. No other arrhythmias. She is only on beta anaid. Lungs sound clear. Heart is regular. Patient urine output is good with a negative balance of more than a liter. Patient could be transferred to telemetry unit. Hopefully discharge within next 24-48 hours 10/09/2019:his 68-year-old female is status post bypass surgery and mitral valve repair. Seemed to be feeling better. Complains of mild soreness in the chest from her incisions. Denies any significant shortness of breath. Continues to use temporary pacemaker. She is scheduled to have AICD and by ventricle pacemaker tomorrow. Patient doesn't have underlying left bundle-branch block. All LV function is impaired. Otherwise, systemic clinically stable. Continue current medical therapy. He had 10/10/2019: This patient was scheduled to have AICD with biventricular pace maker. However, patient developed signs of sepsis with white count elevation. The procedure was canceled for today. Patient is being treated with antibiotics. Patient is still in sinus rhythm with intermittent atrial fibrillation. With the evidence of sinus pauses and Mobitz type I block. We'll continue to monitor her closely. Patient still has a pacemaker wires. If she needs to wait for a long time, patient may need external temporary pacemaker. 10/11/2019: This patient continues to have white count elevation. No fever. No definite source of infection. Chest x-ray doesn't show any evidence of pneumonia. Patient continues to have bradycardia and using pacemaker intermittently. Patient is waiting to have AICD biventricular a speckled placement by Dr. sutton. Waiting for the reports of the blood cultures. Meanwhile, continue current medical therapy. Patient is also receiving blood transfusion for anemia. 10/12/2019: This patient seemed to be relatively stable. Denies any chest pain or shortness of breath, mostly maintaining sinus rhythm. Still has white count elevation. She is being treated for oral thrush. Discussed with infectious disease specialist. He thinks there is no evidence of sepsis. May proceed with ICD with biventricular pacemaker implantation. Will discuss with. Objective - Vital Signs Vital signs: Vital Signs Temp 98.1 F 10/12/19 12:00 Pulse 65 10/12/19 13:00 Resp 16 10/12/19 13:00 BP 127/61 10/12/19 13:00 Pulse Ox 93 L 10/12/19 13:00 Intake & Output 10/11/19 10/12/19 10/12/19 18:59 06:59 18:59 Intake Total 720 320 340 Output Total 400 800 972 Balance 320 -480 -632 Weight 92.2 kg 92.5 kg Intake: IV 360 320 340 0.9 120 220 140 Ampicillin-Sulbactam 3 gm 100 100 100 In Sodium Chloride 0.9% 100 ml @ 200 mls/hr IVPB Q6HR [facility] Rx#:[id number] Anidulafungin 100 mg In 100 Sodium Chloride 0.9% 100 ml @ 84 mls/hr IVPB DAILY [facility] Rx#:[id number] Anidulafungin 200 mg In 130 Sodium Chloride 0.9% 200 ml @ 84 mls/hr IVPB ONCE ONE Rx#:[id number] Sodium Chloride 0.9% 1, 10 000 ml @ 50 mls/hr IV . Q20H [facility] Rx#:[id number] Oral 50 Blood Product 310 Rc As-3 Unit 310 [id number] Output: Urine 400 300 972 Post Void Residual 500 Other: Voiding Method Bedside Commode Bedside Commode Bedside Commode # Voids 1 0 1 # Bowel Movements 1 1 1 ABP, PAP, CO, CI - Last Documented Arterial Blood Pressure 130/42 Pulmonary Artery Pressure 46/22 Cardiac Output 4.6 Cardiac Index 2.6 - Exam GENERAL EXAM: Patient is alert and oriented and doesn't appear to be in any acute distress HEENT: Normocephalic. Normal reaction of pupils, equal size, normal range of extraocular motion. No erythema or exudates in the throat. NECK: No masses, no nuchal rigidity. CHEST: No chest wall deformity. LUNGS: Diminished breath sounds at bases HEART: S1 and S2 normal. Regular rhythm ABDOMEN: No hepatosplenomegaly, normal bowel sounds, no guarding or rigidity. SKIN: No rashes CENTRAL NERVOUS SYSTEM: No focal deficits. EXTREMITIES: No cyanosis, clubbing or edema. - Labs CBC & Chem 7: 10/12/19 04:12 10/12/19 04:12 Labs: Abnormal Lab Results - Last 24 Hours (Table) 10/11/19 10/11/19 10/12/19 Range/Units 16:58 22:11 04:12 WBC 19.8 H (3.8-10.6) k/uL RBC 2.90 L (3.80-5.40) m/uL Hgb 8.2 L (11.4-16.0) gm/dL Hct 27.0 L (34.0-46.0) % MCHC 30.2 L (31.0-37.0) g/dL RDW 19.5 H (11.5-15.5) % Neutrophils # 16.5 H (1.3-7.7) k/uL Chloride (98-107) mmol/L Carbon Dioxide (22-30) mmol/L BUN (7-17) mg/dL Creatinine (0.52-1.04) mg/dL Glucose (74-99) mg/dL POC Glucose (mg/dL) 103 H 106 H (75-99) mg/dL ALT (4-34) U/L C-Reactive Protein (<10.0) mg/L Total Protein (6.3-8.2) g/dL Albumin (3.5-5.0) g/dL 10/12/19 10/12/19 10/12/19 Range/Units 04:12 06:19 12:30 WBC (3.8-10.6) k/uL RBC (3.80-5.40) m/uL Hgb (11.4-16.0) gm/dL Hct (34.0-46.0) % MCHC (31.0-37.0) g/dL RDW (11.5-15.5) % Neutrophils # (1.3-7.7) k/uL Chloride 109 H (98-107) mmol/L Carbon Dioxide 19 L (22-30) mmol/L BUN 55 H (7-17) mg/dL Creatinine 1.78 H (0.52-1.04) mg/dL Glucose 65 L (74-99) mg/dL POC Glucose (mg/dL) 69 L 115 H (75-99) mg/dL ALT 35 H (4-34) U/L C-Reactive Protein 165.1 H (<10.0) mg/L Total Protein 5.7 L (6.3-8.2) g/dL Albumin 3.0 L (3.5-5.0) g/dL Microbiology - Last 24 Hours (Table) 10/10/19 09:31 Blood Culture - Preliminary Blood No Growth after 48 hours 10/10/19 09:45 Blood Culture - Preliminary Blood No Growth after 48 hours Assessment and Plan (1) Status post aorto-coronary artery bypass graft Current Visit: Yes Status: Acute Code(s): Z95.1 - PRESENCE OF AORTOCORONARY BYPASS GRAFT SNOMED Code(s): 783241645 (2) Status post mitral valve repair Current Visit: Yes Status: Acute Code(s): Z98.890 - OTHER SPECIFIED POSTPRO CEDURAL STATES SNOMED Code(s): 132167667 (3) Left bundle branch block Current Visit: Yes Status: Acute Code(s): I44.7 - LEFT BUNDLE-BRANCH BLOCK, UNSPECIFIED SNOMED Code(s): 19733874 (4) Atrial fibrillation Current Visit: Yes Status: Acute Code(s): I48.91 - UNSPECIFIED ATRIAL FIBRILLATION SNOMED Code(s): 82841073 (5) Bradycardia Current Visit: Yes Status: Acute Code(s): R00.1 - BRADYCARDIA, UNSPECIFIED SNOMED Code(s): 95418346 Plan: Continue with blood transfusion. Continue workup for possible sepsis. Waiting for AICD biventricular pacemaker implantation .Will discuss with
--- NOTE | 2019-10-12 14:44 | P.GSCN ---
History of Present Illness Consult date: 10/12/19 Reason for Consult: Fecal impaction History of present illness: Is a 15-year-old female in the CICU. Patient apparently developed abdominal pa in distention. She is noted to have fecal impaction. The nurses attempted to perform digital disimpaction yesterday however there unsuccessful. Past Medical History Past Medical History: Coronary Artery Disease (CAD), Chest Pain / Angina, Heart Failure, Diabetes Mellitus, Eye Disorder, GERD/Reflux, Hyperlipidemia, Hypertension, Myocardial Infarction (NH), Renal Disease, Sleep Apnea/CPAP/BIPAP, Thyroid Disorder Additional Past Medical History / Comment(s): Right cataract, Not using CPAP, admission in June for CHF exacerbation Last Myocardial Infarction Date:: 03/31/2015 History of Any Multi-Drug Resistant Organisms: None Reported Past Surgical History: Breast Surgery, Heart Catheterization, Heart Catheterization With Stent Additional Past Surgical History / Comment(s): Left breast bx-neg, buttocks sx- pt stated:" they told me I had gangrene and had sx to remove", lt cataract, several cardiac cath's.-most recent 2018 Past Anesthesia/Blood Transfusion Reactions: No Reported Reaction Date of Last Stent Placement:: 2016 Smoking Status: Never smoker - Past Family History Father Family Medical History: Unable to Obtain Additional Family Medical History / Comment(s): Father from motor vehicle accident Mother Family Medical History: Diabetes Mellitus, Hypertension Medications and Allergies Home Medications Medication Instructions Recorded Confirmed Type Aspirin 81 mg PO DAILY #1 chewable 06/05/15 09/29/19 Rx Multivitamins, Thera [Multivitamin 1 tab PO DAILY 07/02/15 09/29/19 History (formulary)] Atorvastatin [Lipitor] 80 mg PO HS 08/01/15 09/29/19 History Isosorbide Mononitrate ER [Imdur] 30 mg PO DAILY 08/01/15 09/29/19 History Levothyroxine Sodium [Synthroid] 75 mcg PO DAILY 05/01/16 09/29/19 History Citalopram Hydrobromide [CeleXA] 20 mg PO DAILY tab 08/14/16 09/29/19 Rx Meclizine [Antivert] 12.5 mg PO BID PRN 11/18/16 09/29/19 History Pantoprazole [Protonix] 40 mg PO DAILY 07/25/17 09/29/19 History Allopurinol [Zyloprim] 300 mg PO DAILY 11/26/18 09/29/19 History Carvedilol [Coreg] 6.25 mg PO BID 11/26/18 09/29/19 History Nitroglycerin Sl Tabs [Nitrostat] 0.4 mg SUBLINGUAL Q5M PRN 11/26/18 09/29/19 History Ferrous Sulfate [Iron (65 MG 325 mg PO BID 06/29/19 09/29/19 History Elemental)] INSULIN LISPRO (HumaLOG) [humaLOG] 6 units SQ BID 06/29/19 09/29/19 History Magnesium Oxide [Mag-Ox] 400 mg PO DAILY 06/29/19 09/29/19 History Furosemide [Lasix] 60 mg PO DAILY #60 tablet 07/01/19 09/29/19 Rx Spironolactone [Aldactone] 25 mg PO DAILY #30 tablet 07/01/19 09/29/19 Rx Insulin Detemir (Levemir) [Levemir] 22 unit SQ BID 09/29/19 10/03/19 History Metolazone [Zaroxolyn] 2.5 mg PO DAILY 09/29/19 09/29/19 History amLODIPine [Norvasc] 10 mg PO DAILY 09/29/19 09/29/19 History Allergies Allergy/AdvReac Type Severity Reaction Status Date / Time No Known Allergies Allergy Verified 10/03/19 06:31 Surgical - Exam Vital Signs Temp Pulse Resp BP Pulse Ox 97 F L 79 16 147/78 97 10/03/19 06:11 10/03/19 06:11 10/03/19 06:11 10/03/19 06:11 10/03/19 06:11 - General well developed, no distress - Eyes PERRL - ENT normal pinna - Neck no masses - Respiratory normal expansion - Cardiovascular Rhythm: regular - Abdomen Abdomen: soft, non tender Results - Labs 10/12/19 04:12 10/12/19 04:12 Abnormal Lab Results - Last 24 Hours (Table) 10/11/19 10/11/19 10/12/19 Range/Units 16:58 22:11 04:12 WBC 19.8 H (3.8-10.6) k/uL RBC 2.90 L (3.80-5.40) m/uL Hgb 8.2 L (11.4-16.0) gm/dL Hct 27.0 L (34.0-46.0) % MCHC 30.2 L (31.0-37.0) g/dL RDW 19.5 H (11.5-15.5) % Neutrophils # 16.5 H (1.3-7.7) k/uL Chloride (98-107) mmol/L Carbon Dioxide (22-30) mmol/L BUN (7-17) mg/dL Creatinine (0.52-1.04) mg/dL Glucose (74-99) mg/dL POC Glucose (mg/dL) 103 H 106 H (75-99) mg/dL ALT (4-34) U/L C-Reactive Protein (<10.0) mg/L Total Protein (6.3-8.2) g/dL Albumin (3.5-5.0) g/dL 10/12/19 10/12/19 10/12/19 Range/Units 04:12 06:19 12:30 WBC (3.8-10.6) k/uL RBC (3.80-5.40) m/uL Hgb (11.4-16.0) gm/dL Hct (34.0-46.0) % MCHC (31.0-37.0) g/dL RDW (11.5-15.5) % Neutrophils # (1.3-7.7) k/uL Chloride 109 H (98-107) mmol/L Carbon Dioxide 19 L (22-30) mmol/L BUN 55 H (7-17) mg/dL Creatinine 1.78 H (0.52-1.04) mg/dL Glucose 65 L (74-99) mg/dL POC Glucose (mg/dL) 69 L 115 H (75-99) mg/dL ALT 35 H (4-34) U/L C-Reactive Protein 165.1 H (<10.0) mg/L Total Protein 5.7 L (6.3-8.2) g/dL Albumin 3.0 L (3.5-5.0) g/dL Microbiology - Last 24 Hours (Table) 10/10/19 09:31 Blood Culture - Preliminary Blood No Growth after 48 hours 10/10/19 09:45 Blood Culture - Preliminary Blood No Growth after 48 hours Diabetes panel 10/12/19 Range/Units 04:12 Sodium 137 (137-145) mmol/L Potassium 4.4 (3.5-5.1) mmol/L Chloride 109 H (98-107) mmol/L Carbon Dioxide 19 L (22-30) mmol/L BUN 55 H (7-17) mg/dL Creatinine 1.78 H (0.52-1.04) mg/dL Glucose 65 L (74-99) mg/dL Calcium 9.1 (8.4-10.2) mg/dL AST 24 (14-36) U/L ALT 35 H (4-34) U/L Alkaline Phosphatase 75 (38-126) U/L Total Protein 5.7 L (6.3-8.2) g/dL Albumin 3.0 L (3.5-5.0) g/dL Calcium panel 10/12/19 Range/Units 04:12 Calcium 9.1 (8.4-10.2) mg/dL Albumin 3.0 L (3.5-5.0) g/dL Pituitary panel 10/12/19 Range/Units 04:12 Sodium 137 (137-145) mmol/L Potassium 4.4 (3.5-5.1) mmol/L Chloride 109 H (98-107) mmol/L Carbon Dioxide 19 L (22-30) mmol/L BUN 55 H (7-17) mg/dL Creatinine 1.78 H (0.52-1.04) mg/dL Glucose 65 L (74-99) mg/dL Calcium 9.1 (8.4-10.2) mg/dL Adrenal panel 10/12/19 Range/Units 04:12 Sodium 137 (137-145) mmol/L Potassium 4.4 (3.5-5.1) mmol/L Chloride 109 H (98-107) mmol/L Carbon Dioxide 19 L (22-30) mmol/L BUN 55 H (7-17) mg/dL Creatinine 1.78 H (0.52-1.04) mg/dL Glucose 65 L (74-99) mg/dL Calcium 9.1 (8.4-10.2) mg/dL Total Bilirubin 0.9 (0.2-1.3) mg/dL AST 24 (14-36) U/L ALT 35 H (4-34) U/L Alkaline Phosphatase 75 (38-126) U/L Total Protein 5.7 L (6.3-8.2) g/dL Albumin 3.0 L (3.5-5.0) g/dL Assessment and Plan Assessment: The patient was given soapsuds enemas last night. Patient had a large bowel movement this morning. She is passing gas. Patient's fecal impaction has resolved. She will resume diet.
--- NOTE | 2019-10-12 16:03 | PN ---
PROGRESS NOTE DATE OF SERVICE: 10/12/2019 REASON FOR FOLLOWUP: Leukocytosis. INTERVAL HISTORY: The patient is currently afebrile. The patient is breathing comfortably. Denies having any chest pain. Minimal cough. No abdominal pain. Did have a bowel movement, though. No urinary symptoms. PHYSICAL EXAMINATION: Blood pressure 127/56, pulse of 63, temperature 97.7. She is 96% on 2 L nasal cannula. General description is an elderly female up in the chair in no distress. RESPIRATORY SYSTEM: Unlabored breathing with decreased breath sounds at the base. No wheeze. HEART: S1, S2. Regular rate and rhythm. ABDOMEN: Soft. No tenderness. LABS: Hemoglobin 8.1, white count 19.8, BUN of 55, creatinine 1.78. DIAGNOSTIC IMPRESSION AND PLAN: Patient with leukocytosis which is likely multifactorial in this patient who did have significant constipation with concern for possible abdominal source plus/minus oral thrush. Patient to continue with nystatin swish and swallow and Unasyn. White count is showing a downward trend. Culture has been negative so far. She should be able to go for the pacemaker placement if needed, as the patient is currently not bacteremic. MMODL / IJN: [id number] /
[2019-10-12 16:54] LABS: Glucose,Whole Blood 102 mg/dL (75-99)
[2019-10-12 21:47] LABS: Glucose,Whole Blood 128 mg/dL (75-99)
[2019-10-13 05:05] LABS: Anisocytosis Slight; Basophils % (A) 0 %; Eosinophils # (A) 0.6 k/uL (0-0.7); Eosinophils % (A) 5 %; HCT 24.4 % (34.0-46.0); HGB 7.7 gm/dL (11.4-16.0); Hypochromasia Slight; Lymphocytes # (A) 1.9 k/uL (1.0-4.8); Lymphocytes % (A) 15 %; MCH 28.7 pg (25.0-35.0); MCHC 31.5 g/dL (31.0-37.0); MCV 91.3 fL (80.0-100.0); Mean Platelet Volume 7.4; Monocytes # (A) 0.7 k/uL (0-1.0); Monocytes % (A) 5 %; Neutrophils # (A) 9.7 k/uL (1.3-7.7); Neutrophils % (A) 75 %; Platelet Count 374 k/uL (150-450); RBC 2.67 m/uL (3.80-5.40)
[2019-10-13] MEDS: AMPICILLIN-SULBACTAM 3 GM in SODIUM CHLORIDE 0.9% 100 ML IVPB SCH ×2 (05:58→11:56)
[2019-10-13] MEDS: AMIODARONE 200 MG TAB PO SCH ×3 (05:59→21:09)
[2019-10-13] MEDS: INSULIN ASPART (NovoLOG) 100 UNIT/ML VIAL SQ SCH ×7 (05:59→21:02)
[2019-10-13] MEDS: INSULIN DETEMIR (LEVEMIR) 100 UNIT/ML SYR SQ SCH ×3 (05:59→21:02)
[2019-10-13] MEDS: HEPARIN SODIUM,PORCINE 5,000 UNIT/ML 1 ML VIAL SQ SCH ×3 (05:59→17:00)
[2019-10-13] MEDS: METOPROLOL TARTRATE 12.5 MG TAB PO SCH ×3 (06:00→21:09)
[2019-10-13] MEDS: SENNOSIDES-DOCUSATE SODIUM 1 EACH TAB PO SCH ×2 (06:00→21:09)
[2019-10-13] MEDS: NYSTATIN 100,000 UNIT/ML SUSP 500,000 UNIT/5 ML CUP PO SCH ×5 (06:00→21:09)
[2019-10-13 06:07] LABS: Albumin 2.7 g/dL (3.5-5.0); Calcium 8.7 mg/dL (8.4-10.2); Potassium 3.9 mmol/L (3.5-5.1); Total Bilirubin 0.7 mg/dL (0.2-1.3); Total Protein 5.1 g/dL (6.3-8.2)
[2019-10-13 06:36] LABS: C Reactive Protein 129.8 mg/L (<10.0)
[2019-10-13 06:48] LABS: Glucose,Whole Blood 79 mg/dL (75-99)
[2019-10-13] MEDS: PANTOPRAZOLE 40 MG TABLET PO SCH (07:08)
[2019-10-13] MEDS: LEVOTHYROXINE 75 MCG TAB PO SCH (07:08)
[2019-10-13] MEDS: IPRATROPIUM-ALBUTEROL 3 ML NEB INHALATION SCH ×4 (07:21→20:00)
--- NOTE | 2019-10-13 07:48 | P.PN ---
Subjective Progress Note Date: 10/13/19 Principal diagnosis: Single vessel coronary artery disease, severe functional mitral valve regurgitation with mild tricuspid valve regurgitation and heart failure. Past medical history significant for hypertension, coronary artery disease with previous stent placement to her proximal left anterior descending coronary artery in 2017, hyperlipidemia, insulin-dependent diabetes mellitus poorly controlled with a preoperative hemoglobin A1c of 10.7%, morbid obesity, stage III chronic kidney disease with a baseline creatinine of 1.5, obstructive sleep apnea, pulmonary hypertension and preoperative urinary tract infection of Klebsiella pneumoniae which was treated. POD #4 single coronary artery bypass grafting using the left internal mammary artery to left anterior descending coronary artery, mitral valve repair using a reduction annuloplasty with a 28 mm Physio-II ring, exclusion of the left atrial appendage using a 45 mm Atriclip, intraoperative graft flow measurements using the [employer] sytem, intraoperative epi-aortic scanning and transesophageal echocardiogram. Postoperative acute blood loss anemia, expected outcome secondary to cardiopulmonary bypass and hemodilution. Postoperative paroxysmal controlled atrial fibrillation, unexpected but common occurrence after open heart surgery Postoperative second-degree type 2/third-degree heart block, an unexpected but potential outcome of surgery. Postoperative leukocytosis, without fever and no obvious signs of infection. Postoperative constipation. The patient is currently sitting in the chair in the intensive care unit in no acute distress. Denies pain, shortness of breath. She is awake, oriented x 3 and following commands. She is NSR with a left bundle branch block, rate in the 60s. Hemodynamically stable. She is complaining of "butt pain" and her abdomen is feeling better since having bowel movements yesterday. Objective - Vital Signs Vital signs: Vital Signs Temp 99 F 10/13/19 04:00 Pulse 67 10/13/19 07:00 Resp 18 10/13/19 07:00 BP 132/85 10/13/19 07:00 Pulse Ox 95 10/13/19 07:00 Intake & Output 10/12/19 10/13/19 10/13/19 18:59 06:59 18:59 Intake Total 380 0 Output Total 1129 292 60 Balance -749 -292 -60 Intake: IV 380 0 0.9 180 0 Ampicillin-Sulbactam 3 gm 100 In Sodium Chloride 0.9% 100 ml @ 200 mls/hr IVPB Q6HR [facility] Rx#:[id number] Anidulafungin 100 mg In 100 Sodium Chloride 0.9% 100 ml @ 84 mls/hr IVPB DAILY [facility] Rx#:[id number] Output: Urine 1129 292 60 Other: Voiding Method Indwelling Catheter Indwelling Catheter # Voids 1 # Bowel Movements 1 ABP, PAP, CO, CI - Last Documented Arterial Blood Pressure 130/42 Pulmonary Artery Pressure 46/22 Cardiac Output 4.6 Cardiac Index 2.6 - Constitutional General appearance: Present: cooperative, no acute distress, obese - Respiratory Details: Lung sounds are essentially clear to her bilateral upper lobes, diminished bilateral bases. No wheezes, crackles or rhonchi. Respirations are symmetrical and nonlabored. She is 93-96% on room air. She achieves 1000 mL on incentive spirometry - Cardiovascular Details: Regular rhythm and rate. S1 and S2 present, negative for S3, gallop or murmur. Sternum is stable. Bedside telemetry is showing normal sinus rhythm with left bundle branch block heart rate 60s bpm. Atrial and ventricular epicardial pacemaker wires were placed and connected to a backup pacemaker generator on a VVI 50. Heart hugger is in place and she is demonstrating appropriate use with encouragement. Knee-high KARTHIKEYAN hose and sequential compression devices in place to bilateral lower extremities. - Gastrointestinal Gastrointestinal Comment(s): Abdomen is soft, nontender nondistended. Active bowel sounds present all 4 abdominal quadrants. No guarding or rigidity. No organomegaly appreciated. Tolerating oral intake. Disimpacted 10/12/2019. Bowel movement yesterday 10/12/2019. - Integumentary Integumentary Comment(s): Urinary catheter in place, reinserted yesterday 10/12/2019 for urinary retention. Urine clear and yellow, no sediment. - Neurologic Neurologic: Present: CNII-XII intact - Musculoskeletal Musculoskeletal: Present: gait normal, generalized weakness, strength equal bilaterally - Psychiatric Psychiatric: Present: A&O x's 3, appropriate affect, intact judgment & insight - Labs CBC & Chem 7: 10/13/19 04:43 10/13/19 04:43 Labs: Abnormal Lab Results - Last 24 Hours (Table) 09/29/19 10/03/19 10/03/19 Range/Units 09:00 08:53 10:21 WBC (3.8-10.6) k/uL RBC (3.80-5.40) m/uL Hgb (11.4-16.0) gm/dL Hct (34.0-46.0) % RDW (11.5-15.5) % Neutrophils # (1.3-7.7) k/uL ABG pH 7.33 L 7.28 L (7.35-7.45) ABG pO2 >420 H 152 H (83-108) mmHg ABG Total CO2 (19-24) mmol/L ABG O2 Saturation 99.9 H 98.7 H (94-97) % ABG Hematocrit (34.0-46.0) % ABG Sodium (135-146) mmol/L ABG Potassium (3.4-4.5) mmol/L ABG Ionized Calcium (4.5-5.3) mg/dL ABG Glucose 267 H 208 H (75-99) mg/dL ABG Lactic Acid 1.8 H (0.5-1.6) mmol/L Hemoglobin (11.4-16.0) gm/dL Chloride (98-107) mmol/L Carbon Dioxide (22-30) mmol/L BUN (7-17) mg/dL Creatinine (0.52-1.04) mg/dL POC Glucose (mg/dL) (75-99) mg/dL C-Reactive Protein (<10.0) mg/L Total Protein (6.3-8.2) g/dL Albumin (3.5-5.0) g/dL Arterial Blood Potassium (3.4-4.5) mmol/L Arterial Blood Glucose 267 H 208 H (75-99) mg/dL Crossmatch See Detail 10/03/19 10/03/19 10/03/19 Range/Units 11:13 11:56 13:03 WBC (3.8-10.6) k/uL RBC (3.80-5.40) m/uL Hgb (11.4-16.0) gm/dL Hct (34.0-46.0) % RDW (11.5-15.5) % Neutrophils # (1.3-7.7) k/uL ABG pH 7.34 L (7.35-7.45) ABG pO2 >420 H 315 H 315 H (83-108) mmHg ABG Total CO2 25 H (19-24) mmol/L ABG O2 Saturation 100.0 H 99.7 H 99.8 H (94-97) % ABG Hematocrit 25 L 24 L 22 L (34.0-46.0) % ABG Sodium 134 L 132 L (135-146) mmol/L ABG Potassium 3.3 L (3.4-4.5) mmol/L ABG Ionized Calcium 4.2 L 4.4 L (4.5-5.3) mg/dL ABG Glucose 165 H 259 H 222 H (75-99) mg/dL ABG Lactic Acid 1.8 H 2.0 H 2.8 H* (0.5-1.6) mmol/L Hemoglobin 8.0 L 7.8 L 7.3 L (11.4-16.0) gm/dL Chloride (98-107) mmol/L Carbon Dioxide (22-30) mmol/L BUN (7-17) mg/dL Creatinine (0.52-1.04) mg/dL POC Glucose (mg/dL) (75-99) mg/dL C-Reactive Protein (<10.0) mg/L Total Protein (6.3-8.2) g/dL Albumin (3.5-5.0) g/dL Arterial Blood Potassium 3.3 L (3.4-4.5) mmol/L Arterial Blood Glucose 165 H 259 H 222 H (75-99) mg/dL Crossmatch 10/03/19 10/06/19 10/11/19 Range/Units 14:25 01:50 06:35 WBC (3.8-10.6) k/uL RBC (3.80-5.40) m/uL Hgb (11.4-16.0) gm/dL Hct (34.0-46.0) % RDW (11.5-15.5) % Neutrophils # (1.3-7.7) k/uL ABG pH 7.34 L (7.35-7.45) ABG pO2 366 H (83-108) mmHg ABG Total CO2 (19-24) mmol/L ABG O2 Saturation 99.6 H (94-97) % ABG Hematocrit 25 L (34.0-46.0) % ABG Sodium (135-146) mmol/L ABG Potassium 3.3 L (3.4-4.5) mmol/L ABG Ionized Calcium (4.5-5.3) mg/dL ABG Glucose 184 H (75-99) mg/dL ABG Lactic Acid 1.8 H (0.5-1.6) mmol/L Hemoglobin 8.3 L (11.4-16.0) gm/dL Chloride 109 H (98-107) mmol/L Carbon Dioxide (22-30) mmol/L BUN 51 H (7-17) mg/dL Creatinine 1.72 H (0.52-1.04) mg/dL POC Glucose (mg/dL) (75-99) mg/dL C-Reactive Protein (<10.0) mg/L Total Protein 5.6 L (6.3-8.2) g/dL Albumin 3.1 L (3.5-5.0) g/dL Arterial Blood Potassium 3.3 L (3.4-4.5) mmol/L Arterial Blood Glucose 184 H (75-99) mg/dL Crossmatch See Detail 10/12/19 10/12/19 10/12/19 Range/Units 12:30 16:52 21:36 WBC (3.8-10.6) k/uL RBC (3.80-5.40) m/uL Hgb (11.4-16.0) gm/dL Hct (34.0-46.0) % RDW (11.5-15.5) % Neutrophils # (1.3-7.7) k/uL ABG pH (7.35-7.45) ABG pO2 (83-108) mmHg ABG Total CO2 (19-24) mmol/L ABG O2 Saturation (94-97) % ABG Hematocrit (34.0-46.0) % ABG Sodium (135-146) mmol/L ABG Potassium (3.4-4.5) mmol/L ABG Ionized Calcium (4.5-5.3) mg/dL ABG Glucose (75-99) mg/dL ABG Lactic Acid (0.5-1.6) mmol/L Hemoglobin (11.4-16.0) gm/dL Chloride (98-107) mmol/L Carbon Dioxide (22-30) mmol/L BUN (7-17) mg/dL Creatinine (0.52-1.04) mg/dL POC Glucose (mg/dL) 115 H 102 H 128 H (75-99) mg/dL C-Reactive Protein (<10.0) mg/L Total Protein (6.3-8.2) g/dL Albumin (3.5-5.0) g/dL Arterial Blood Potassium (3.4-4.5) mmol/L Arterial Blood Glucose (75-99) mg/dL Crossmatch 10/13/19 10/13/19 Range/Units 04:43 04:43 WBC 13.0 H (3.8-10.6) k/uL RBC 2.67 L (3.80-5.40) m/uL Hgb 7.7 L (11.4-16.0) gm/dL Hct 24.4 L (34.0-46.0) % RDW 19.0 H (11.5-15.5) % Neutrophils # 9.7 H (1.3-7.7) k/uL ABG pH (7.35-7.45) ABG pO2 (83-108) mmHg ABG Total CO2 (19-24) mmol/L ABG O2 Saturation (94-97) % ABG Hematocrit (34.0-46.0) % ABG Sodium (135-146) mmol/L ABG Potassium (3.4-4.5) mmol/L ABG Ionized Calcium (4.5-5.3) mg/dL ABG Glucose (75-99) mg/dL ABG Lactic Acid (0.5-1.6) mmol/L Hemoglobin (11.4-16.0) gm/dL Chloride 109 H (98-107) mmol/L Carbon Dioxide 20 L (22-30) mmol/L BUN 54 H (7-17) mg/dL Creatinine 1.94 H (0.52-1.04) mg/dL POC Glucose (mg/dL) (75-99) mg/dL C-Reactive Protein 129.8 H (<10.0) mg/L Total Protein 5.1 L (6.3-8.2) g/dL Albumin 2.7 L (3.5-5.0) g/dL Arterial Blood Potassium (3.4-4.5) mmol/L Arterial Blood Glucose (75-99) mg/dL Crossmatch Microbiology - Last 24 Hours (Table) 10/03/19 08:22 Urine Culture - Final Urine,Voided 10/10/19 09:31 Blood Culture - Preliminary Blood No Growth after 48 hours 10/10/19 09:45 Blood Culture - Preliminary Blood No Growth after 48 hours Assessment and Plan Assessment: 1. Single-vessel coronary artery disease, status post single vessel coronary artery bypass grafting REYES to the left anterior descending coronary artery 2. Severe functional mitral valve regurgitation, status post mitral valve repai r using a reduction annuloplasty with a 28 mm physio-II ring 3. Mild tricuspid valve regurgitation 4. Acute on chronic systolic heart failure, with a preoperative ejection fraction of 35-40% 5. History of coronary artery disease with previous stent placement to her left anterior descending coronary artery in 2017 6. Hypertension 7. Dyslipidemia 8. Poorly controlled insulin-dependent diabetes mellitus with a preoperative hemoglobin A1c of 10.7% 8. Ischemic cardiomyopathy 9. Pulmonary hypertension, likely related to valvular disease 10. Stage III chronic kidney disease with a baseline creatinine of 1.5 11. Obstructive sleep apnea 12. Preoperative urinary tract infection of Klebsiella pneumoniae, treated 13. Morbid obesity 14. Postoperative acute blood loss anemia 15. Postoperative second-degree type 2/third-degree heart block, an unexpected but potential outcome of surgery 16. Postoperative paroxysmal atrial fibrillation, an unexpected but potential outcome of surgery 17. Postoperative leukocytosis, without fever and no obvious signs of infection 18. Postoperative urinary retention 19. Postoperative constipation Plan: 1. Continue aspirin, statin, Plavix, and beta anaid. 2. Encourage incentive spirometry 10 times every hour while awake. 3. Bronchodilators per pulmonology management. 4. Increase activity, out of bed for all meals ambulate minimum 4 x daily. PT/OT/cardiac rehab following. 5. Will monitor daily labs and chest x-rays. Electrolyte replacement per protocol. 6. Pain controlled current medication regimen. Avoid NSAIDs due to the patient's renal function. 7. Insulin management per primary care service. 8. Biventricular ICD placement okay per infectious disease, may place when okay with Dr. Kendall. 9. Dr. Miller from urology consult noted, continue Hinkle catheter for urinary retention for 24-48 hours per urology recommendation 10. Continue Cozaar 25 mg by mouth daily at noon for afterload reduction and increase Aldactone to 25 mg by mouth daily. 11. Continue amiodarone 400 mg by mouth twice a day for atrial fibrillation prophylaxis. 12. General surgery was consulted yesterday for her constipation, recs appreciated. Bowel regimine per gen surg. 13. Continue antibiotic, managed by Dr. Ocasio from infectious disease, blood culture showed no growth after 24 hours. 14. Keep atrial and ventricular epicardial pacemaker wires in place and connected to bedside pacemaker generator on a VVI 50. 15. More recommendations to follow based on patient's clinical course. Time with Patient: Greater than 30
[2019-10-13] MEDS ORDERED: POTASSIUM CHLORIDE ER 20 MEQ TAB.ER PO SCH (08:00)
[2019-10-13] MEDS: ASPIRIN 325 MG TAB PO SCH (08:37)
[2019-10-13] MEDS: SPIRONOLACTONE 25 MG TAB PO SCH (08:38)
[2019-10-13] MEDS: CITALOPRAM HYDROBROMIDE 20 MG TAB PO SCH (08:38)
[2019-10-13] MEDS: allopurinoL 300 MG TAB PO SCH (08:38)
[2019-10-13] MEDS: CLOPIDOGREL 75 MG TAB PO SCH (08:38)
[2019-10-13] MEDS: ATORVASTATIN 40 MG TAB PO SCH (08:38)
--- NOTE | 2019-10-13 08:45 | P.PN ---
Subjective Progress Note Date: 10/13/19 Principal diagnosis: Status post CABG, mitral valve repair, postoperative day #7 68-year-old of Dr. Moore, with past medical history of coronary artery disease with previous stenting of the LAD in 2017, hypertension, hyperlipidemia, insulin-dependent diabetes mellitus, morbid obesity, stage III chronic kidney disease, pulmonary hypertension, family history of hypertension and diabetes. Patient was hospitalized last November 2018 when she presented with complaints of severe, constant, sharp chest pain with left arm radiation. Patient had echocardiogram that showed a moderately impaired LV function with EF of 35-40%, mild aortic regurgitation, mild mitral annular calcification and moderate to severe mitral regurgitation. There was evidence of severe pulmonary hyperten aniyah and moderate tricuspid regurg. Patient went on to have cardiac catheterization that showed LAD stenosis of 70% in the proximal portion. [place] showed EF of 35-40%, severe mitral regurgitation, with a dilated annulus and poor coaptation of the mitral leaflets and moderate to severe tricuspid regu rgitation. She was referred to CT surgery for surgical evaluation, and it took her several months to obtain dental clearance, and optimize her diabetes. Today on 10/03/2019 patient had a one-vessel bypass with REYES to LAD, and mitral valve repair, his occlusion of the left atrial appendage. She is seen in the postoperative period in the intensive care unit, she is intubated, sedated on mechanical ventilator, current vent settings assist control mode with a rate of 16, tidal vital 350, FiO2 50% and PEEP of 8. Current drips include 0.9 normal saline at a rate of 50, Primacor at 0.3 mics per kilo per minute, levo fed at 0.04 mics per kilo per minute, insulin drip, and Diprivan at 20 mics per kilo per minute. PA pressure is 48/27, CVP 13, cardiac output and index are 4.6 and 2.6 respectively, AV wires in place, patient is on VVI Mode and is currently pacing at 100%. 2 mediastinal chest tubes with 130 mL of sanguinous output, left pleural and right pleural with 120 and 50 ML of sanguinous output respectively. Postop blood work shows a white blood cell count of 12.3, hemoglobin of 8.7, sodium is 136, the rest of electrolytes are within normal limits, BUN 62 and creatinine is 1.74. Patient was reevaluated today on 10/04/19, patient was extubated around 4 AM this morning. He tolerated the extubation quite well. Presently on IV fluid at 50 mL per hour. Patient has intermittent episodes of confusion. Remains on Primacor at 0. one 5 mcg/kg/m. Patient is paced with VVI pacemaker at 50 bpm. Her cardiac index is 2.8, cardiac output is 5 CVP is 10. Chest x-ray showed minimal atelectasis at the bases. Patient had REYES to LAD, mitral valve repair and she again she is postoperative day #1. Patient is on 6 L high flow nasal cannula. O2 saturations 98%. Achieving 500 mL on her incentive spirometer. She has noted some surgical type of pain at the side of her chest tube insertion, and mostly when taking a deep breath. Denies shortness of breath. Mediastinal right and left pleural chest tubes remain in place. On continuous wall suction. No air leak. Draining thin serosanguineous drainage with the 130 mL output in the last 8 hours and 300 mL output since surgery from the mediastinal chest tubes. Patient was reevaluated today on 10/05/19, patient remains sitting in bed, doing well, no specific complaints. She is oriented [address] mostly [address] and [address]. Not oriented to time. Denies any complaints, she has some vague chest pain upon taking a deep breath. She is hemodynamically stable, not requiring any pressors. Her cardiac index is 2.6, cardiac output is 4.6. CVP is 14. Chest x-ray showed minimal atelectasis at the bases especially at the left base. Patient remains on 4 L nasal cannula, and O2 saturations 96%. She is achieving about 500 MLS her incentive spirometer. Her mediastinal left and right pleural chest tubes remained in place, no air leak noted. Drainage was noted, amount is becoming less and less over the last 2 days. She had a T-max of 99.7. Otherwise the patient is doing great. She does seem to be globally weak Patient was reevaluated today on 10/06/19, remains in the ICU, patient is sitting in a recliner. Denies any shortness of breath, no cough no wheezing, presently she has sinus rhythm and a second-degree AV block, hemodynamically stable, not requiring any pressors and at night she went into controlled atrial fib rillation. Placed on amiodarone and she remains on protocol this morning. Dr. Tavarez was consulted regarding her arrhythmia. He is recommending switching patient to oral amiodarone. Low-dose beta blockers and possibly eventually placed the patient back on her Coreg twice a day. No plans at least at this point to place a permanent pacer. He will assess the patient on outpatient basis chest x-ray today showed mostly left basilar atelectasis. Reevaluated today on 11/03/19, patient is doing quite well. Remains in the ICU, in no distress, denies any shortness of breath or pain. Heart rate is in the low 60s and 70s, patient is in atrial fibrillation. Hemodynamically stable. And she is doing better with incentive spirometry. Chest x-ray continues to show minimal left basilar atelectasis. Reevaluated today on 10/08/19, patient is doing fairly well, asymptomatic, chest x-ray is showing improvement, continues to have issues related to her intermittent episodes of cardiac arrhythmia. Patient is not requiring any inotropes. She is hemodynamically stable. Patient is presently in atrial fibrillation, she is on 2 L nasal cannula. And she is being considered for AICD placement next Thursday. Patient was reevaluated today on 10/09/19, remains in the ICU, but the patient is doing great. Sitting at a bedside chair, awake oriented 3, basically asymptomatic. Chest x-ray seems to be reassuring. Telemetry shows atrial fibrillation with left bundle branch block, rate is 84. O2 saturations 95% on 2 L. Doing much better with incentive spirometer. On 10/10/2019 patient is seen in follow-up in the intensive care unit, she is awake and alert, in no acute distress, she is resting comfortably in bed, she is currently on 2 L of oxygen, her pulse ox is 9200%, vital signs are stable, she is afebrile, she is in sinus mechanism on the monitor, with a rate of 62. No acute events overnight, her chest tubes have been discontinued, her AV wires are in place connected to external pacemaker with backup rate of 50, intrinsic rhythm is sinus, with a rate of 62. Patient has been nothing by mouth since midnight, she is scheduled for pacemaker/AICD placement today, she denies any pulmonary complaints, denies any shortness of breath, her pain is under good control, lung sounds are clear to auscultation, patient is working on incentive spirometer, effort to the 750 ML. Today's chest x-ray has been reviewed showing subsegmental areas of consolidation bilaterally that are stable in appearance and likely related to postoperative atelectasis. These labs have been reviewed showing white blood cell, 17.1, hemoglobin of 7.2, electrolytes are within normal limits, BUN of 55 and creatinine is 1.76. Patient has been tolerating ambulation in the hallway. On 10/11/2019 patient seen in follow-up in the intensive care unit, she is resting in bed, in no acute distress, she is on 2 L of oxygen pulse ox of 97%, she has been afebrile, hemodynamically patient is stable, sinus rhythm on mo nitor, AV wires connected to external pacemaker with backup rate of 50. Yesterday patient's pacemaker/AICD placement was delayed related to leukocytosis. Today's labs have been reviewed and with blood cell count has trended further up to 20.8, hemoglobin is 6.5, platelet count is 325, sodium is 141, potassium is 4.5, chloride is 108, CO2 is 24, B1 is 60 and creatinine is 1.71. Patient denies any shortness of breath, she is working on incentive spirometer, her effort today is about 750 ML. Lung sounds are positive for bibasilar crackles, no rhonchi no wheezing, patient will nonproductive cough. Urinalysis was sent yesterday and results show no evidence of infection. His chest x-ray shows left basilar atelectasis, no evidence of consolidation or pneumonia. Cultures have been sent and pending. Rashes disease has been consulted, and patient has been placed on Eraxis, and oral nystatin. On 10/12/2019 patient seen in follow-up in the intensive care unit, today she is awake and alert, she sitting up in the recliner, in no acute distress, she is on 2 L of oxygen the pulse ox of 96%, denies any specific complaints, she is working incentive spirometer, achieving 750 on it today. Lung sounds are clear, no rhonchi, no wheezing. She has been tolerating ambulation. No complaints of nausea vomiting or diarrhea, abdomen is soft, nontender. Patient is hemodynamically stable, in sinus mechanism with a controlled rate. No fever or chills, his labs have been reviewed, showing with the toco 919.8, hemoglobin of 8.2, platelet count 342, sodium is 137, potassium is 4.4, chloride is 109, CO2 is 19, B1 55 and creatinine 1.78. Urine culture is negative, blood cultures are negative thus far showing no growth at the 24-hour abilio. Still unclear the source of leukocytosis, ID service is following, patient is on oral nystatin and Eraxis. No evidence of oropharyngeal thrush. Midsternal incision clean dry and intact On 10/13/2019 patient seen in follow-up in the intensive care unit, today is postoperative day 9, status post 1 vessel bypass, mitral valve repair. Patient is awake and alert, oriented 3, she is in no acute distress. She is on room air, her pulse ox is 95%, hemodynamically stable, sinus rhythm on the monitor. He wires in place, connected to external pacemaker with a backup rate. No shortness of breath, lung sounds are clear, midsternal incisions clean dry and intact, chest tube sites are clean dry and intact. Patient is working on incentive spirometer, achieving 1000 ml today. No new chest x-ray today. Today's labs show white blood cell trending further down, down to 13.0, hemoglobin is 7.7, platelet count was 373, sodium is 137, potassium 3.9, ch loride is 109, CO2 is 20, BUN is 54, and creatinine is 1.94. Abdomen is soft, patient is passing bowel movements, surgical consultation was obtained regarding constipation and fecal impaction patient was given soapsuds enemas and started passing large bowel movements. Tolerating Oral diet, no nausea no vomiting. Objective - Vital Signs Vital signs: Vital Signs Temp 99 F 10/13/19 04:00 Pulse 67 10/13/19 07:36 Resp 18 10/13/19 07:00 BP 132/85 10/13/19 07:00 Pulse Ox 95 10/13/19 07:00 Intake & Output 10/12/19 10/13/19 10/13/19 18:59 06:59 18:59 Intake Total 380 0 Output Total 1129 292 60 Balance -749 -292 -60 Weight 86.7 kg Intake: IV 380 0 0.9 180 0 Ampicillin-Sulbactam 3 gm 100 In Sodium Chloride 0.9% 100 ml @ 200 mls/hr IVPB Q6HR [facility] Rx#:[id number] Anidulafungin 100 mg In 100 Sodium Chloride 0.9% 100 ml @ 84 mls/hr IVPB DAILY [facility] Rx#:[id number] Output: Urine 1129 292 60 Other: Voiding Method Indwelling Catheter Indwelling Catheter # Voids 1 # Bowel Movements 1 ABP, PAP, CO, CI - Last Documented Arterial Blood Pressure 130/42 Pulmonary Artery Pressure 46/22 Cardiac Output 4.6 Cardiac Index 2.6 - Exam GENERAL EXAM: Alert, very pleasant, 68-year-old female, on room air with pulse ox of 95%, comfortable in no apparent distress. HEAD: Normocephalic/atraumatic. EYES: Normal reaction of pupils, equal size. Conjunctiva pink, sclera white. NOSE: Clear with pink turbinates. THROAT: No erythema or exudates. NECK: No masses, no JVD, no thyroid enlargement, no adenopathy. CHEST: No chest wall deformity. Symmetrical expansion. Midsternal incision, clean dry and intact, chest tube sites are clean dry and intact, AV wires in place, connected to an external pacemaker with a backup rate of 50, intrinsic rhythm is sinus rhythm with a right lung base clinic with a rate of 62 BPM LUNGS: Equal air entry with no crackles, wheeze, rhonchi or dullness. CVS: Regular rate and rhythm, normal S1 and S2, no gallops, no murmurs, no rubs ABDOMEN: Soft, nontender. No hepatosplenomegaly, normal bowel sounds, no guarding or rigidity. EXTREMITIES: No clubbing, no edema, no cyanosis, 2+ pulses and upper and lower extremities. MUSCULOSKELETAL: Muscle strength and tone normal. SPINE: No scoliosis or deformity SKIN: No rashes CENTRAL NERVOUS SYSTEM: Alert and oriented -3. No focal deficits, tone is n ormal in all 4 extremities. PSYCHIATRIC: Alert and oriented -3. Appropriate affect. Intact judgment and insight. - Labs CBC & Chem 7: 10/13/19 04:43 10/13/19 04:43 Labs: Abnormal Lab Results - Last 24 Hours (Table) 09/29/19 10/03/19 10/03/19 Range/Units 09:00 08:53 10:21 WBC (3.8-10.6) k/uL RBC (3.80-5.40) m/uL Hgb (11.4-16.0) gm/dL Hct (34.0-46.0) % RDW (11.5-15.5) % Neutrophils # (1.3-7.7) k/uL ABG pH 7.33 L 7.28 L (7.35-7.45) ABG pO2 >420 H 152 H (83-108) mmHg ABG Total CO2 (19-24) mmol/L ABG O2 Saturation 99.9 H 98.7 H (94-97) % ABG Hematocrit (34.0-46.0) % ABG Sodium (135-146) mmol/L ABG Potassium (3.4-4.5) mmol/L ABG Ionized Calcium (4.5-5.3) mg/dL ABG Glucose 267 H 208 H (75-99) mg/dL ABG Lactic Acid 1.8 H (0.5-1.6) mmol/L Hemoglobin (11.4-16.0) gm/dL Chloride (98-107) mmol/L Carbon Dioxide (22-30) mmol/L BUN (7-17) mg/dL Creatinine (0.52-1.04) mg/dL POC Glucose (mg/dL) (75-99) mg/dL C-Reactive Protein (<10.0) mg/L Total Protein (6.3-8.2) g/dL Albumin (3.5-5.0) g/dL Arterial Blood Potassium (3.4-4.5) mmol/L Arterial Blood Glucose 267 H 208 H (75-99) mg/dL Crossmatch See Detail 10/03/19 10/03/19 10/03/19 Range/Units 11:13 11:56 13:03 WBC (3.8-10.6) k/uL RBC (3.80-5.40) m/uL Hgb (11.4-16.0) gm/dL Hct (34.0-46.0) % RDW (11.5-15.5) % Neutrophils # (1.3-7.7) k/uL ABG pH 7.34 L (7.35-7.45) ABG pO2 >420 H 315 H 315 H (83-108) mmHg ABG Total CO2 25 H (19-24) mmol/L ABG O2 Saturation 100.0 H 99.7 H 99.8 H (94-97) % ABG Hematocrit 25 L 24 L 22 L (34.0-46.0) % ABG Sodium 134 L 132 L (135-146) mmol/L ABG Potassium 3.3 L (3.4-4.5) mmol/L ABG Ionized Calcium 4.2 L 4.4 L (4.5-5.3) mg/dL ABG Glucose 165 H 259 H 222 H (75-99) mg/dL ABG Lactic Acid 1.8 H 2.0 H 2.8 H* (0.5-1.6) mmol/L Hemoglobin 8.0 L 7.8 L 7.3 L (11.4-16.0) gm/dL Chloride (98-107) mmol/L Carbon Dioxide (22-30) mmol/L BUN (7-17) mg/dL Creatinine (0.52-1.04) mg/dL POC Glucose (mg/dL) (75-99) mg/dL C-Reactive Protein (<10.0) mg/L Total Protein (6.3-8.2) g/dL Albumin (3.5-5.0) g/dL Arterial Blood Potassium 3.3 L (3.4-4.5) mmol/L Arterial Blood Glucose 165 H 259 H 222 H (75-99) mg/dL Crossmatch 10/03/19 10/06/19 10/11/19 Range/Units 14:25 01:50 06:35 WBC (3.8-10.6) k/uL RBC (3.80-5.40) m/uL Hgb (11.4-16.0) gm/dL Hct (34.0-46.0) % RDW (11.5-15.5) % Neutrophils # (1.3-7.7) k/uL ABG pH 7.34 L (7.35-7.45) ABG pO2 366 H (83-108) mmHg ABG Total CO2 (19-24) mmol/L ABG O2 Saturation 99.6 H (94-97) % ABG Hematocrit 25 L (34.0-46.0) % ABG Sodium (135-146) mmol/L ABG Potassium 3.3 L (3.4-4.5) mmol/L ABG Ionized Calcium (4.5-5.3) mg/dL ABG Glucose 184 H (75-99) mg/dL ABG Lactic Acid 1.8 H (0.5-1.6) mmol/L Hemoglobin 8.3 L (11.4-16.0) gm/dL Chloride 109 H (98-107) mmol/L Carbon Dioxide (22-30) mmol/L BUN 51 H (7-17) mg/dL Creatinine 1.72 H (0.52-1.04) mg/dL POC Glucose (mg/dL) (75-99) mg/dL C-Reactive Protein (<10.0) mg/L Total Protein 5.6 L (6.3-8.2) g/dL Albumin 3.1 L (3.5-5.0) g/dL Arterial Blood Potassium 3.3 L (3.4-4.5) mmol/L Arterial Blood Glucose 184 H (75-99) mg/dL Crossmatch See Detail 10/12/19 10/12/19 10/12/19 Range/Units 12:30 16:52 21:36 WBC (3.8-10.6) k/uL RBC (3.80-5.40) m/uL Hgb (11.4-16.0) gm/dL Hct (34.0-46.0) % RDW (11.5-15.5) % Neutrophils # (1.3-7.7) k/uL ABG pH (7.35-7.45) ABG pO2 (83-108) mmHg ABG Total CO2 (19-24) mmol/L ABG O2 Saturation (94-97) % ABG Hematocrit (34.0-46.0) % ABG Sodium (135-146) mmol/L ABG Potassium (3.4-4.5) mmol/L ABG Ionized Calcium (4.5-5.3) mg/dL ABG Glucose (75-99) mg/dL ABG Lactic Acid (0.5-1.6) mmol/L Hemoglobin (11.4-16.0) gm/dL Chloride (98-107) mmol/L Carbon Dioxide (22-30) mmol/L BUN (7-17) mg/dL Creatinine (0.52-1.04) mg/dL POC Glucose (mg/dL) 115 H 102 H 128 H (75-99) mg/dL C-Reactive Protein (<10.0) mg/L Total Protein (6.3-8.2) g/dL Albumin (3.5-5.0) g/dL Arterial Blood Potassium (3.4-4.5) mmol/L Arterial Blood Glucose (75-99) mg/dL Crossmatch 10/13/19 10/13/19 Range/Units 04:43 04:43 WBC 13.0 H (3.8-10.6) k/uL RBC 2.67 L (3.80-5.40) m/uL Hgb 7.7 L (11.4-16.0) gm/dL Hct 24.4 L (34.0-46.0) % RDW 19.0 H (11.5-15.5) % Neutrophils # 9.7 H (1.3-7.7) k/uL ABG pH (7.35-7.45) ABG pO2 (83-108) mmHg ABG Total CO2 (19-24) mmol/L ABG O2 Saturation (94-97) % ABG Hematocrit (34.0-46.0) % ABG Sodium (135-146) mmol/L ABG Potassium (3.4-4.5) mmol/L ABG Ionized Calcium (4.5-5.3) mg/dL ABG Glucose (75-99) mg/dL ABG Lactic Acid (0.5-1.6) mmol/L Hemoglobin (11.4-16.0) gm/dL Chloride 109 H (98-107) mmol/L Carbon Dioxide 20 L (22-30) mmol/L BUN 54 H (7-17) mg/dL Creatinine 1.94 H (0.52-1.04) mg/dL POC Glucose (mg/dL) (75-99) mg/dL C-Reactive Protein 129.8 H (<10.0) mg/L Total Protein 5.1 L (6.3-8.2) g/dL Albumin 2.7 L (3.5-5.0) g/dL Arterial Blood Potassium (3.4-4.5) mmol/L Arterial Blood Glucose (75-99) mg/dL Crossmatch Microbiology - Last 24 Hours (Table) 10/03/19 08:22 Urine Culture - Final Urine,Voided 10/10/19 09:31 Blood Culture - Preliminary Blood No Growth after 48 hours 10/10/19 09:45 Blood Culture - Preliminary Blood No Growth after 48 hours Assessment and Plan Plan: Assessment: #1. Coronary artery disease, severe mitral regurgitation, status post 1 vessel bypass REYES to LAD, and mitral valve repair, left atrial appendage exclusion, postoperative day 10 #2. Leukocytosis, unspecified, rule out infectious process, but cultures are pending, patient is afebrile, urinalysis without any sign of infection, chest x- ray showing cardiomegaly, possible left basilar atelectasis, right lung is clear. Improving on today's labs, down to 13.0 on 10/13/2019 #3. Chronic congestive heart failure, systolic in nature #4. Post-op of cardiac arrhythmia, presently in sinus mechanism with right bundle branch block, and awaiting placement of pacemaker/AICD #5. Acute blood loss anemia, expected outcome of bypass and mitral valve repair surgery #6 Chronic kidney disease #7. Recent history of urinary tract infection, with urine culture positive for Klebsiella pneumonia treated with ciprofloxacin #8. Normal preop spirometry with FEV1 of 92% of predicted #9. History of diabetes mellitus, poorly controlled #10. Hypertension #11. Hyperlipidemia #12. Previous stenting of the LAD 2016 #13. Ischemic cardiomyopathy with LV function of 35-40% #14. Pulmonary hypertension likely related to valvular heart disease #15. Family history of hypertension and diabetes Plan: Continue current medical treatment, white blood cell count is further down trending, no fever or chills, hemodynamically dynamically patient remains stable, no specific complaints, she is passing large bowel movements, tolerating oral diet. Empiric antibiotic coverage with Unasyn was added, Eraxis DC'ed, ID service is following. No arrhythmias. Coverage deep breathing and coughing, encourage incentive spirometry use. We'll continue to monitor in intensive care unit I performed a history & physical examination of the patient and discussed their management with my nurse practitioner, Ashlee Elaine. I reviewed the nurse practitioner's note and agree with the documented findings and plan of care. Lung sounds are positive for diminished breath sounds. The findings and the impression was discussed with the patient. I attest to the documentation by the nurse practitioner. Time with Patient: Less than 30
--- NOTE | 2019-10-13 09:58 | P.PN ---
Subjective Progress Note Date: 10/13/19 This is a 68-year-old female with history of single-vessel coronary artery disease and mitral regurgitation, status post bypass surgery and mitral valve repair. Patient also has underlying atrial fibrillation with left bundle-branch block pattern. Patient developed bradycardia after she was treated with IV amiodarone. Patient is off amiodarone at this time. She is a small dose of beta anaid. Her heart rate is controlled without any significant bradyarrhythmias. Patient is sitting up in the chair and seems to be stable. Complain some mild chest pain but no shortness of breath. Lungs show some diminished breath sounds at bases and few rhonchi. Heart is irregular. Overall patient's critical status seemed to be stable. We'll continue current medical therapy. Increase activity and possible transfer to telemetry unit. Continue monitoring for any significant bradyarrhythmias. 10/08/2019: This patient seemed to be much stable. Patient is back in sinus rhythm. Denies any significant chest pain or shortness of breath. Tolerating activity. No other arrhythmias. She is only on beta anaid. Lungs sound clear. Heart is regular. Patient urine output is good with a negative balance of more than a liter. Patient could be transferred to telemetry unit. Hopefully discharge within next 24-48 hours 10/09/2019:his 68-year-old female is status post bypass surgery and mitral valve repair. Seemed to be feeling better. Complains of mild soreness in the chest from her incisions. Denies any significant shortness of breath. Continues to use temporary pacemaker. She is scheduled to have AICD and by ventricle pacemaker tomorrow. Patient doesn't have underlying left bundle-branch block. All LV function is impaired. Otherwise, systemic clinically stable. Continue current medical therapy. He had 10/10/2019: This patient was scheduled to have AICD with biventricular pace maker. However, patient developed signs of sepsis with white count elevation. The procedure was canceled for today. Patient is being treated with antibiotics. Patient is still in sinus rhythm with intermittent atrial fibrillation. With the evidence of sinus pauses and Mobitz type I block. We'll continue to monitor her closely. Patient still has a pacemaker wires. If she needs to wait for a long time, patient may need external temporary pacemaker. 10/11/2019: This patient continues to have white count elevation. No fever. No definite source of infection. Chest x-ray doesn't show any evidence of pneumonia. Patient continues to have bradycardia and using pacemaker intermittently. Patient is waiting to have AICD biventricular a speckled placement by Dr. kendall. Waiting for the reports of the blood cultures. Meanwhile, continue current medical therapy. Patient is also receiving blood transfusion for anemia. 10/12/2019: This patient seemed to be relatively stable. Denies any chest pain or shortness of breath, mostly maintaining sinus rhythm. Still has white count elevation. She is being treated for oral thrush. Discussed with infectious disease specialist. He thinks there is no evidence of sepsis. May proceed with ICD with biventricular pacemaker implantation. Will discuss with 10/13/2019: This patient continued to be stable. Hemoglobin is about 7.2. White count is coming down. No fever. ID specialist thinks that patient could go to the pacemaker insertion. I conveyed the message to Dr. Kendall. Continue current medical therapy. Dr. Kendall. We'll decide about ICD. Increase activity as tolerated Objective - Vital Signs Vital signs: Vital Signs Temp 99 F 10/13/19 04:00 Pulse 67 10/13/19 07:36 Resp 18 10/13/19 07:00 BP 132/85 10/13/19 07:00 Pulse Ox 95 10/13/19 07:00 Intake & Output 10/12/19 10/13/19 10/13/19 18:59 06:59 18:59 Intake Total 380 0 240 Output Total 1129 292 135 Balance -749 -292 105 Weight 86.7 kg Intake: IV 380 0 0.9 180 0 Ampicillin-Sulbactam 3 gm 100 In Sodium Chloride 0.9% 100 ml @ 200 mls/hr IVPB Q6HR [facility] Rx#:[id number] Anidulafungin 100 mg In 100 Sodium Chloride 0.9% 100 ml @ 84 mls/hr IVPB DAILY [facility] Rx#:[id number] Oral 240 Output: Urine 1129 292 135 Other: Voiding Method Indwelling Catheter Indwelling Catheter Indwelling Catheter # Voids 1 # Bowel Movements 1 ABP, PAP, CO, CI - Last Documented Arterial Blood Pressure 130/42 Pulmonary Artery Pressure 46/22 Cardiac Output 4.6 Cardiac Index 2.6 - Exam GENERAL EXAM: Patient is alert and oriented and doesn't appear to be in any acute distress HEENT: Normocephalic. Normal reaction of pupils, equal size, normal range of extraocular motion. No erythema or exudates in the throat. NECK: No masses, no nuchal rigidity. CHEST: No chest wall deformity. LUNGS: Diminished breath sounds at bases HEART: S1 and S2 normal. Regular rhythm ABDOMEN: No hepatosplenomegaly, normal bowel sounds, no guarding or rigidity. SKIN: No rashes CENTRAL NERVOUS SYSTEM: No focal deficits. EXTREMITIES: No cyanosis, clubbing or edema. - Labs CBC & Chem 7: 10/13/19 04:43 10/13/19 04:43 Labs: Abnormal Lab Results - Last 24 Hours (Table) 09/29/19 10/03/19 10/03/19 Range/Units 09:00 08:53 10:21 WBC (3.8-10.6) k/uL RBC (3.80-5.40) m/uL Hgb (11.4-16.0) gm/dL Hct (34.0-46.0) % RDW (11.5-15.5) % Neutrophils # (1.3-7.7) k/uL ABG pH 7.33 L 7.28 L (7.35-7.45) ABG pO2 >420 H 152 H (83-108) mmHg ABG Total CO2 (19-24) mmol/L ABG O2 Saturation 99.9 H 98.7 H (94-97) % ABG Hematocrit (34.0-46.0) % ABG Sodium (135-146) mmol/L ABG Potassium (3.4-4.5) mmol/L ABG Ionized Calcium (4.5-5.3) mg/dL ABG Glucose 267 H 208 H (75-99) mg/dL ABG Lactic Acid 1.8 H (0.5-1.6) mmol/L Hemoglobin (11.4-16.0) gm/dL Chloride (98-107) mmol/L Carbon Dioxide (22-30) mmol/L BUN (7-17) mg/dL Creatinine (0.52-1.04) mg/dL POC Glucose (mg/dL) (75-99) mg/dL C-Reactive Protein (<10.0) mg/L Total Protein (6.3-8.2) g/dL Albumin (3.5-5.0) g/dL Arterial Blood Potassium (3.4-4.5) mmol/L Arterial Blood Glucose 267 H 208 H (75-99) mg/dL Crossmatch See Detail 10/03/19 10/03/19 10/03/19 Range/Units 11:13 11:56 13:03 WBC (3.8-10.6) k/uL RBC (3.80-5.40) m/uL Hgb (11.4-16.0) gm/dL Hct (34.0-46.0) % RDW (11.5-15.5) % Neutrophils # (1.3-7.7) k/uL ABG pH 7.34 L (7.35-7.45) ABG pO2 >420 H 315 H 315 H (83-108) mmHg ABG Total CO2 25 H (19-24) mmol/L ABG O2 Saturation 100.0 H 99.7 H 99.8 H (94-97) % ABG Hematocrit 25 L 24 L 22 L (34.0-46.0) % ABG Sodium 134 L 132 L (135-146) mmol/L ABG Potassium 3.3 L (3.4-4.5) mmol/L ABG Ionized Calcium 4.2 L 4.4 L (4.5-5.3) mg/dL ABG Glucose 165 H 259 H 222 H (75-99) mg/dL ABG Lactic Acid 1.8 H 2.0 H 2.8 H* (0.5-1.6) mmol/L Hemoglobin 8.0 L 7.8 L 7.3 L (11.4-16.0) gm/dL Chloride (98-107) mmol/L Carbon Dioxide (22-30) mmol/L BUN (7-17) mg/dL Creatinine (0.52-1.04) mg/dL POC Glucose (mg/dL) (75-99) mg/dL C-Reactive Protein (<10.0) mg/L Total Protein (6.3-8.2) g/dL Albumin (3.5-5.0) g/dL Arterial Blood Potassium 3.3 L (3.4-4.5) mmol/L Arterial Blood Glucose 165 H 259 H 222 H (75-99) mg/dL Crossmatch 10/03/19 10/06/19 10/11/19 Range/Units 14:25 01:50 06:35 WBC (3.8-10.6) k/uL RBC (3.80-5.40) m/uL Hgb (11.4-16.0) gm/dL Hct (34.0-46.0) % RDW (11.5-15.5) % Neutrophils # (1.3-7.7) k/uL ABG pH 7.34 L (7.35-7.45) ABG pO2 366 H (83-108) mmHg ABG Total CO2 (19-24) mmol/L ABG O2 Saturation 99.6 H (94-97) % ABG Hematocrit 25 L (34.0-46.0) % ABG Sodium (135-146) mmol/L ABG Potassium 3.3 L (3.4-4.5) mmol/L ABG Ionized Calcium (4.5-5.3) mg/dL ABG Glucose 184 H (75-99) mg/dL ABG Lactic Acid 1.8 H (0.5-1.6) mmol/L Hemoglobin 8.3 L (11.4-16.0) gm/dL Chloride 109 H (98-107) mmol/L Carbon Dioxide (22-30) mmol/L BUN 51 H (7-17) mg/dL Creatinine 1.72 H (0.52-1.04) mg/dL POC Glucose (mg/dL) (75-99) mg/dL C-Reactive Protein (<10.0) mg/L Total Protein 5.6 L (6.3-8.2) g/dL Albumin 3.1 L (3.5-5.0) g/dL Arterial Blood Potassium 3.3 L (3.4-4.5) mmol/L Arterial Blood Glucose 184 H (75-99) mg/dL Crossmatch See Detail 10/12/19 10/12/19 10/12/19 Range/Units 12:30 16:52 21:36 WBC (3.8-10.6) k/uL RBC (3.80-5.40) m/uL Hgb (11.4-16.0) gm/dL Hct (34.0-46.0) % RDW (11.5-15.5) % Neutrophils # (1.3-7.7) k/uL ABG pH (7.35-7.45) ABG pO2 (83-108) mmHg ABG Total CO2 (19-24) mmol/L ABG O2 Saturation (94-97) % ABG Hematocrit (34.0-46.0) % ABG Sodium (135-146) mmol/L ABG Potassium (3.4-4.5) mmol/L ABG Ionized Calcium (4.5-5.3) mg/dL ABG Glucose (75-99) mg/dL ABG Lactic Acid (0.5-1.6) mmol/L Hemoglobin (11.4-16.0) gm/dL Chloride (98-107) mmol/L Carbon Dioxide (22-30) mmol/L BUN (7-17) mg/dL Creatinine (0.52-1.04) mg/dL POC Glucose (mg/dL) 115 H 102 H 128 H (75-99) mg/dL C-Reactive Protein (<10.0) mg/L Total Protein (6.3-8.2) g/dL Albumin (3.5-5.0) g/dL Arterial Blood Potassium (3.4-4.5) mmol/L Arterial Blood Glucose (75-99) mg/dL Crossmatch 10/13/19 10/13/19 Range/Units 04:43 04:43 WBC 13.0 H (3.8-10.6) k/uL RBC 2.67 L (3.80-5.40) m/uL Hgb 7.7 L (11.4-16.0) gm/dL Hct 24.4 L (34.0-46.0) % RDW 19.0 H (11.5-15.5) % Neutrophils # 9.7 H (1.3-7.7) k/uL ABG pH (7.35-7.45) ABG pO2 (83-108) mmHg ABG Total CO2 (19-24) mmol/L ABG O2 Saturation (94-97) % ABG Hematocrit (34.0-46.0) % ABG Sodium (135-146) mmol/L ABG Potassium (3.4-4.5) mmol/L ABG Ionized Calcium (4.5-5.3) mg/dL ABG Glucose (75-99) mg/dL ABG Lactic Acid (0.5-1.6) mmol/L Hemoglobin (11.4-16.0) gm/dL Chloride 109 H (98-107) mmol/L Carbon Dioxide 20 L (22-30) mmol/L BUN 54 H (7-17) mg/dL Creatinine 1.94 H (0.52-1.04) mg/dL POC Glucose (mg/dL) (75-99) mg/dL C-Reactive Protein 129.8 H (<10.0) mg/L Total Protein 5.1 L (6.3-8.2) g/dL Albumin 2.7 L (3.5-5.0) g/dL Arterial Blood Potassium (3.4-4.5) mmol/L Arterial Blood Glucose (75-99) mg/dL Crossmatch Microbiology - Last 24 Hours (Table) 10/03/19 08:22 Urine Culture - Final Urine,Voided 10/10/19 09:31 Blood Culture - Preliminary Blood No Growth after 48 hours 10/10/19 09:45 Blood Culture - Preliminary Blood No Growth after 48 hours Assessment and Plan (1) Status post aorto-coronary artery bypass graft Current Visit: Yes Status: Acute Code(s): Z95.1 - PRESENCE OF AORTOCORONARY BYPASS GRAFT SNOMED Code(s): 868832271 (2) Status post mitral valve repair Current Visit: Yes Status: Acute Code(s): Z98.890 - OTHER SPECIFIED POSTPROCEDURAL STATES SNOMED Code(s): 437542235 (3) Left bundle branch block Current Visit: Yes Status: Acute Code(s): I44.7 - LEFT BUNDLE-BRANCH BLOCK, UNSPECIFIED SNOMED Code(s): 55890894 (4) Atrial fibrillation Current Visit: Yes Status: Acute Code(s): I48.91 - UNSPECIFIED ATRIAL FIBRILLATION SNOMED Code(s): 77526343 (5) Bradycardia Current Visit: Yes Status: Acute Code(s): R00.1 - BRADYCARDIA, UNSPECIFIED SNOMED Code(s): 41806839 Plan: Continue current management. We will discuss with Dr. Kendall. Actually a message was sent to him to evaluate the patient for ICD insertion
[2019-10-13] MEDS ORDERED: ceFAZolin 1,000 MG in SODIUM CHLORIDE 0.9% IRRIGATIO 250 ML IRRIGATION ONE ×2 (11:44→18:30)
[2019-10-13] MEDS ORDERED: SODIUM CHLORIDE 0.9% 1,000 ML IV SCH ×2 (11:45)
--- NOTE | 2019-10-13 11:58 | P.PN ---
Progress Note - Text Progress Note Date: 10/13/19 Patient signed diet. She's had problems. She has no abdominal complaint. On exam vital signs are stable. Abdomen soft. Post disimpaction of fecal impaction. Patient is doing well. No surgical intervention is planned.
[2019-10-13 12:00] LABS: Glucose,Whole Blood 92 mg/dL (75-99)
[2019-10-13] MEDS: LOSARTAN 25 MG TAB PO SCH (12:29)
--- NOTE | 2019-10-13 16:49 | P.PN ---
Subjective 68 years old female with past medical history of coronary artery disease, heart failure status post stent placement, diabetes mellitus, GERD, hypertension, hyperlipidemia, sleep apnea on CPAP/BiPAP, hypothyroidism. She is a status post 1 vessel bypass surgery and today postop day #1. She also got extubated today and currently she is on nasal cannula at 4 L/m was saturating 95-98%, patient denies chest pain or dyspnea except as surgical site which is expected. Rest of Vitas looks stable. Labs reviewed showed mild leukocytosis of 12 K, INR is normal, sugar controlled, creatinine 1.9 (baseline 1.4-2.0) Chest x-ray: Improved radiation Patient is currently on aspirin, metoprolol, oral levothyroxine, Protonix 10/05/2019 Patient remains in the ICU with no chest pain or dyspnea. However today her blood pressure dropped with physical therapy session went down to 80/40, patient brought back on lying position in the chair, she was fully awake and oriented however she looked pale with no chest pain or dyspnea. Recheck blood pressure show improvement, please see records. Progressive vitals are stable. Sugar controlled 141-152 today her chest tube and swelling Came out 10/06/2019 Patient is awake and alert, looks tired but she denies chest pain or dyspnea and vitals are stable. Sugar controlled and WBC is trending down to 11.6 K. Creatinine down to 1.7. Patient was on insulin drip which could be stopped, patient is eating. Resume her Levemir 15 units twice a day (was 22 units at home) and 3 units with meals (was 6 units at home), keep insulin sliding scale. Cardiology team also following the case today. 10/07/2019 Patient is up in chair, no dizziness, blood pressure is a stable at 117/66. No postural symptoms. She was sitting and eating in bed with no difficulty. She still have some pain in the surgical site which is expected. Mild Leukocytosis of 12.4 K. Creatinine 1.8 him at baseline. Sugar control, continue with same regimen 10/08/19 Patient is in chair, no chest pain, no dizziness. Breathing quietly. Vitas looks stable and blood pressure 109/63, heart rate is 77 beats per minute which is sinus. She is eating well and tolerating that well however she has constipation and ask for some laxative WBC is 11.4 K,, creatinine at baseline 1.7 Dr. Coppola evaluated patient for possible inpatient rehab, patient agrees Patient may be considered for transfer to general medical floor 10/09/2019 Patient lying comfortable in bed, no chest pain or dyspnea, she is tolerating diet well. Vitals are stable. WBC is trending down to 13 K, hemoglobin 7.3, creatinine is improving to 1.6. Chest x-ray: subsegmental areas of consolidation by laboratory are stable, related to postoperative atelectasis Patient has been having periods of bradycardia with manager filter evaluated patient and found her with bradycardia, periods of A. fib and with left bundle branch block and prolonged MI interval, with planning for placement of AICD device on Thursday Patient remains in the ICU for now 10/10/2019 Patient will be going for permanent pacemaker and AICD placement today patient had any of of around 20%. Patient does have leukocytosis. Patient was a evaluated by infectious disease no fever at this time. Patient was started on antifungal medications by infectious disease 10/11/2019 Patient was having severe constipation and some additional risk and urine patient was started on lactulose and mineral oil enema 10/12/2019 Patient is cost patient resolved after manual disimpaction. Creatinine remained stable leukocytosis improving. 10/13/2019 No significant overnight events. Patient will undergo pacemaker placement his creatinine is bit worse. White blood cell count improved Constitutional: Denied any fatigue denied any fever. Cardio vascular: denied any chest pain, palpitations Gastrointestinal denied any nausea vomiting Pulmonary: Denied any shortness of breath cough Neurologic denied any new focal deficits All inpatient medications were reviewed and appropriate changes in these medications as dictated in the interval history and assessment and plan. Objective - Vital Signs Vital signs: Vital Signs Temp 98.3 F 10/13/19 12:00 Pulse 63 10/13/19 15:00 Resp 21 10/13/19 15:00 BP 94/53 10/13/19 15:00 Pulse Ox 91 L 10/13/19 15:00 Intake & Output 10/12/19 10/13/19 10/13/19 18:59 06:59 18:59 Intake Total 380 0 500 Output Total 1129 292 430 Balance -749 -292 70 Weight 86.7 kg Intake: IV 380 0 100 0.9 180 0 Ampicillin-Sulbactam 3 gm 100 100 In Sodium Chloride 0.9% 100 ml @ 200 mls/hr IVPB Q6HR [facility] Rx#:[id number] Anidulafungin 100 mg In 100 Sodium Chloride 0.9% 100 ml @ 84 mls/hr IVPB DAILY [facility] Rx#:[id number] Intake, IV Titration 150 Amount Sodium Chloride 0.9% 1, 150 000 ml @ 50 mls/hr IV . Q20H [facility] Rx#:[id number] Oral 250 Output: Urine 1129 292 430 Other: Voiding Method Indwelling Catheter Indwelling Catheter Indwelling Catheter # Voids 1 # Bowel Movements 1 ABP, PAP, CO, CI - Last Documented Arterial Blood Pressure 130/42 Pulmonary Artery Pressure 46/22 Cardiac Output 4.6 Cardiac Index 2.6 - Exam GENERAL: The patient is alert and oriented x3, not in any acute distress. Well developed, well nourished. HEENT: Pupils are round and equally reacting to light. EOMI. No scleral icterus. No conjunctival pallor. Normocephalic, atraumatic. No pharyngeal erythema. No t hyromegaly. -CARDIOVASCULAR: S1 and S2 present. No murmurs, rubs, or gallops. Sternal wound is in a dressing PULMONARY: Chest is clear to auscultation, no wheezing or crackles. ABDOMEN: Soft, nontender, nondistended, normoactive bowel sounds. No palpable organomegaly. MUSCULOSKELETAL: No joint swelling or deformity. EXTREMITIES: No cyanosis, clubbing, or pedal edema. NEUROLOGICAL: Gross neurological examination did not reveal any focal deficits. SKIN: No rashes. No petechiae - Labs CBC & Chem 7: 10/13/19 04:43 10/13/19 04:43 Labs: Abnormal Lab Results - Last 24 Hours (Table) 09/29/19 10/03/19 10/03/19 Range/Units 09:00 08:53 10:21 WBC (3.8-10.6) k/uL RBC (3.80-5.40) m/uL Hgb (11.4-16.0) gm/dL Hct (34.0-46.0) % RDW (11.5-15.5) % Neutrophils # (1.3-7.7) k/uL ABG pH 7.33 L 7.28 L (7.35-7.45) ABG pO2 >420 H 152 H (83-108) mmHg ABG Total CO2 (19-24) mmol/L ABG O2 Saturation 99.9 H 98.7 H (94-97) % ABG Hematocrit (34.0-46.0) % ABG Sodium (135-146) mmol/L ABG Potassium (3.4-4.5) mmol/L ABG Ionized Calcium (4.5-5.3) mg/dL ABG Glucose 267 H 208 H (75-99) mg/dL ABG Lactic Acid 1.8 H (0.5-1.6) mmol/L Hemoglobin (11.4-16.0) gm/dL Chloride (98-107) mmol/L Carbon Dioxide (22-30) mmol/L BUN (7-17) mg/dL Creatinine (0.52-1.04) mg/dL POC Glucose (mg/dL) (75-99) mg/dL C-Reactive Protein (<10.0) mg/L Total Protein (6.3-8.2) g/dL Albumin (3.5-5.0) g/dL Arterial Blood Potassium (3.4-4.5) mmol/L Arterial Blood Glucose 267 H 208 H (75-99) mg/dL Crossmatch See Detail 10/03/19 10/03/19 10/03/19 Range/Units 11:13 11:56 13:03 WBC (3.8-10.6) k/uL RBC (3.80-5.40) m/uL Hgb (11.4-16.0) gm/dL Hct (34.0-46.0) % RDW (11.5-15.5) % Neutrophils # (1.3-7.7) k/uL ABG pH 7.34 L (7.35-7.45) ABG pO2 >420 H 315 H 315 H (83-108) mmHg ABG Total CO2 25 H (19-24) mmol/L ABG O2 Saturation 100.0 H 99.7 H 99.8 H (94-97) % ABG Hematocrit 25 L 24 L 22 L (34.0-46.0) % ABG Sodium 134 L 132 L (135-146) mmol/L ABG Potassium 3.3 L (3.4-4.5) mmol/L ABG Ionized Calcium 4.2 L 4.4 L (4.5-5.3) mg/dL ABG Glucose 165 H 259 H 222 H (75-99) mg/dL ABG Lactic Acid 1.8 H 2.0 H 2.8 H* (0.5-1.6) mmol/L Hemoglobin 8.0 L 7.8 L 7.3 L (11.4-16.0) gm/dL Chloride (98-107) mmol/L Carbon Dioxide (22-30) mmol/L BUN (7-17) mg/dL Creatinine (0.52-1.04) mg/dL POC Glucose (mg/dL) (75-99) mg/dL C-Reactive Protein (<10.0) mg/L Total Protein (6.3-8.2) g/dL Albumin (3.5-5.0) g/dL Arterial Blood Potassium 3.3 L (3.4-4.5) mmol/L Arterial Blood Glucose 165 H 259 H 222 H (75-99) mg/dL Crossmatch 10/03/19 10/06/19 10/11/19 Range/Units 14:25 01:50 06:35 WBC (3.8-10.6) k/uL RBC (3.80-5.40) m/uL Hgb (11.4-16.0) gm/dL Hct (34.0-46.0) % RDW (11.5-15.5) % Neutrophils # (1.3-7.7) k/uL ABG pH 7.34 L (7.35-7.45) ABG pO2 366 H (83-108) mmHg ABG Total CO2 (19-24) mmol/L ABG O2 Saturation 99.6 H (94-97) % ABG Hematocrit 25 L (34.0-46.0) % ABG Sodium (135-146) mmol/L ABG Potassium 3.3 L (3.4-4.5) mmol/L ABG Ionized Calcium (4.5-5.3) mg/dL ABG Glucose 184 H (75-99) mg/dL ABG Lactic Acid 1.8 H (0.5-1.6) mmol/L Hemoglobin 8.3 L (11.4-16.0) gm/dL Chloride 109 H (98-107) mmol/L Carbon Dioxide (22-30) mmol/L BUN 51 H (7-17) mg/dL Creatinine 1.72 H (0.52-1.04) mg/dL POC Glucose (mg/dL) (75-99) mg/dL C-Reactive Protein (<10.0) mg/L Total Protein 5.6 L (6.3-8.2) g/dL Albumin 3.1 L (3.5-5.0) g/dL Arterial Blood Potassium 3.3 L (3.4-4.5) mmol/L Arterial Blood Glucose 184 H (75-99) mg/dL Crossmatch See Detail 10/12/19 10/12/19 10/13/19 Range/Units 16:52 21:36 04:43 WBC 13.0 H (3.8-10.6) k/uL RBC 2.67 L (3.80-5.40) m/uL Hgb 7.7 L (11.4-16.0) gm/dL Hct 24.4 L (34.0-46.0) % RDW 19.0 H (11.5-15.5) % Neutrophils # 9.7 H (1.3-7.7) k/uL ABG pH (7.35-7.45) ABG pO2 (83-108) mmHg ABG Total CO2 (19-24) mmol/L ABG O2 Saturation (94-97) % ABG Hematocrit (34.0-46.0) % ABG Sodium (135-146) mmol/L ABG Potassium (3.4-4.5) mmol/L ABG Ionized Calcium (4.5-5.3) mg/dL ABG Glucose (75-99) mg/dL ABG Lactic Acid (0.5-1.6) mmol/L Hemoglobin (11.4-16.0) gm/dL Chloride (98-107) mmol/L Carbon Dioxide (22-30) mmol/L BUN (7-17) mg/dL Creatinine (0.52-1.04) mg/dL POC Glucose (mg/dL) 102 H 128 H (75-99) mg/dL C-Reactive Protein (<10.0) mg/L Total Protein (6.3-8.2) g/dL Albumin (3.5-5.0) g/dL Arterial Blood Potassium (3.4-4.5) mmol/L Arterial Blood Glucose (75-99) mg/dL Crossmatch 10/13/19 Range/Units 04:43 WBC (3.8-10.6) k/uL RBC (3.80-5.40) m/uL Hgb (11.4-16.0) gm/dL Hct (34.0-46.0) % RDW (11.5-15.5) % Neutrophils # (1.3-7.7) k/uL ABG pH (7.35-7.45) ABG pO2 (83-108) mmHg ABG Total CO2 (19-24) mmol/L ABG O2 Saturation (94-97) % ABG Hematocrit (34.0-46.0) % ABG Sodium (135-146) mmol/L ABG Potassium (3.4-4.5) mmol/L ABG Ionized Calcium (4.5-5.3) mg/dL ABG Glucose (75-99) mg/dL ABG Lactic Acid (0.5-1.6) mmol/L Hemoglobin (11.4-16.0) gm/dL Chloride 109 H (98-107) mmol/L Carbon Dioxide 20 L (22-30) mmol/L BUN 54 H (7-17) mg/dL Creatinine 1.94 H (0.52-1.04) mg/dL POC Glucose (mg/dL) (75-99) mg/dL C-Reactive Protein 129.8 H (<10.0) mg/L Total Protein 5.1 L (6.3-8.2) g/dL Albumin 2.7 L (3.5-5.0) g/dL Arterial Blood Potassium (3.4-4.5) mmol/L Arterial Blood Glucose (75-99) mg/dL Crossmatch Microbiology - Last 24 Hours (Table) 10/10/19 09:31 Blood Culture - Preliminary Blood No Growth after 72 hours 10/10/19 09:45 Blood Culture - Preliminary Blood No Growth after 72 hours 10/03/19 08:22 Urine Culture - Final Urine,Voided Assessment and Plan Plan: coronary artery disease, status post 1 vessel bypass surgery Cardiac arrhythmia with periods of A. fib, bradycardia, left bundle branch block and Hypertension Diabetes mellitus Hyperlipidemia chronic kidney disease, stage III -Congestive heart failure chronic systolic dysfunction EF of around 20% with some acute exacerbation: Patient is going for pacemaker placement today History of coronary artery disease, status post stent placement GERD -severe constipation: Further management as mentioned above were those measures doesn't help patient will be started on GoLYTELY Severe mitral regurgitation, severe tricuspid regurgitation Severe pulmonary hypertension Hypothyroidism Sleep apnea on CPAP/BiPAP chronic
[2019-10-13] MEDS ORDERED: LIDOCAINE 1% INJ 10MG/ML (20 ML MDV) ONE (17:02)
[2019-10-13] MEDS ORDERED: PROPOFOL 10 MG/ML 20 ML VIAL IV ONE (17:52)
[2019-10-13] MEDS ORDERED: MIDAZOLAM 2 MG/2 ML VIAL ONE (17:52)
[2019-10-13] MEDS ORDERED: fentaNYL (PF) 50 MCG/ML 2 ML AMP ONE (17:52)
[2019-10-13] MEDS ORDERED: IV FLUID CONTINUATION 200 ML IV ONE (18:06)
[2019-10-13] MEDS ORDERED: IOPAMIDOL-250 50ML BTL IV ONE (18:11)
[2019-10-13] MEDS ORDERED: ACETAMINOPHEN IV (For NPO) 1,000 MG in EMPTY BAG 1 BAG IVPB ONE (18:25)
[2019-10-13] MEDS ORDERED: HYDROcodone/APAP 5-325MG 1 EACH TAB PO PRN (18:25)
[2019-10-13] MEDS ORDERED: ACETAMINOPHEN TAB 325 MG TAB PO PRN (18:25)
--- NOTE | 2019-10-13 18:25 | P.PN ---
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% Severe mitral regurgitation status post repair Status post single vessel coronary artery bypass grafting for LAD stenosis Underlying left bundle branch block pattern at baseline Postoperative bradycardia with sinus pauses and intermittent AV node Wenckebach block Continues to use [place] pacemaker Paroxysmal atrial fibrillation Congestive heart failure systolic class 2-3 Plan In view of recurrent bradycardia requiring pacing, we'll proceed with a biventricular ICD in the postoperative state, today White count is improved, afebrile patient is doing well and stable Maximize beta blockers thereafter
[2019-10-13] MEDS ORDERED: VANCOMYCIN 1,000 MG in SODIUM CHLORIDE 0.9% 250 ML IVPB STA (18:28)
[2019-10-13] MEDS ORDERED: LIDOCAINE 1% INJ 10MG/ML (20 ML MDV) SQ ONE ×2 (18:42→19:00)
[2019-10-13 21:02] LABS: Glucose,Whole Blood 64 mg/dL (75-99)
[2019-10-13 21:53] LABS: Glucose,Whole Blood 99 mg/dL (75-99)
--- NOTE | 2019-10-13 22:33 | PN ---
PROGRESS NOTE DATE OF SERVICE: 10/13/2019 REASON FOR FOLLOWUP: Leukocytosis. INTERVAL HISTORY: The patient is currently afebrile. The patient is breathing more comfortably. The patient denies having any chest pain or cough. No nausea, no vomiting. Denies abdominal pain or diarrhea. PHYSICAL EXAMINATION: On examination, blood pressure 116/73 with a pulse of 59, temperature 98. She is 97% on 2 L nasal cannula. General description is an elderly female up in the chair in no distress. RESPIRATORY SYSTEM: Unlabored breathing with decreased breath sounds at the bases. No wheeze. HEART: S1, S2. Regular rate and rhythm. ABDOMEN: Soft. No tenderness. LABS: Hemoglobin 7.7, white count 13, BUN of 54, creatinine 1.94. Blood culture has been negative. DIAGNOSTIC IMPRESSION AND PLAN: Patient with leukocytosis which is multifactorial in this patient who did have oral thrush and possible abdominal source, as the patient had significant constipation which seems to have . White count is showing a downward trend with the Unasyn and the nystatin swish and swallow; to continue and monitor clinical course closely. MMODL / IJN: [id number] /
[2019-10-13 23:40] LABS: Glucose,Whole Blood 102 mg/dL (75-99)
--- NOTE | 2019-10-13 23:54 | PCN ---
PROCEDURE NOTE Cony Mcmillan is a 68-year-old female who underwent a biventricular ICD today. Please see my progress note for the indication dictated separately. The patient was brought to the EP lab in a fasting state. Written informed consent was obtained prior to procedure. The left shoulder area was prepped and draped as per protocol and 1% lidocaine was used for local anesthesia. A 4 cm incision was made parallel to the deltopectoral groove, about 1.5 cm medial to it. The incision was carried down to the level of the pectoralis muscle. A subfascial pocket was made. Hemostasis was assured. The left axillary vein was accessed at 3 separate points under fluoroscopy and via appropriately-sized introducer sheaths. Three leads were positioned. The atrial lead was screwed in the right atrial appendage stump. P-waves 1.9 mV, pacing threshold 1.25 V at 0.5 milliseconds, pacing impedance of 450 ohms. Ten volt test negative. The ICD lead was positioned in the RV apex. R-waves 11.7 mV, pacing threshold 0.25 V at 0.5 milliseconds, pacing impedance of 450 ohms. Ten volt test was negative. The LV lead was positioned in the lateral vein. The coronary sinus was accessed and the lateral vein was easily selected with coronary sinus catheter and went in easily into the lateral vein. However, the thresholds all along the vein were high. The lead was stable, but when the sheath was removed, the lead dislodged. Therefore, a new sheath was placed and this was a [employer] sheath and an 86 cm lead was placed in the anterior vein. The thresholds again were high. The best threshold was from the tip of the lead to the RV coil (B1-RVC) which was 2.9 V at 0.5 milliseconds, pacing impedance of 430 ohms, high-voltage impedance 45 ohms. With AV sync, the QRS narrowed to about 135 milliseconds. All leads secured to the underlying pectoralis fascia using 2 nonabsorbable sutures. Pocket was irrigated with antibiotic solution. Leads were connected to the generator (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 The device was programmed to MADIT-RIT programming with appropriate antitachycardia pacing, cardioversion and defibrillation. The morphology was turned on and pacing at DDDR 50 to 130 ppm. The patient tolerated the procedure well without any acute complications. EXTENDED DURATION OF THE PROCEDURE: The procedure duration was extended because of dislodgement of the lead during sheath removal and we had to reaccess the coronary sinus catheter, place a new sheath and a new lead and this time we targeted the anterior vein. Upon sheath removal, the leads remained stable here. MMODL / IJN: [id number] /
[2019-10-14] MEDS: HEPARIN SODIUM,PORCINE 5,000 UNIT/ML 1 ML VIAL SQ SCH ×4 (00:06→23:37)
[2019-10-14] MEDS: AMPICILLIN-SULBACTAM 3 GM in SODIUM CHLORIDE 0.9% 100 ML IVPB SCH ×3 (00:06→23:37)
[2019-10-14 04:53] LABS: Anisocytosis Slight; HCT 23.7 % (34.0-46.0); HGB 7.1 gm/dL (11.4-16.0); Hypochromasia Moderate; MCH 27.7 pg (25.0-35.0); MCHC 29.9 g/dL (31.0-37.0); MCV 92.8 fL (80.0-100.0); Macrocytosis Slight; Mean Platelet Volume 7.2; Platelet Count 326 k/uL (150-450); RBC 2.56 m/uL (3.80-5.40); RDW 19.1 % (11.5-15.5)
[2019-10-14 05:19] LABS: Calcium 8.5 mg/dL (8.4-10.2); Potassium 4.1 mmol/L (3.5-5.1)
[2019-10-14] MEDS: INSULIN ASPART (NovoLOG) 100 UNIT/ML VIAL SQ SCH ×6 (06:12→20:41)
[2019-10-14] MEDS: LEVOTHYROXINE 75 MCG TAB PO SCH (06:13)
[2019-10-14 06:30] LABS: Glucose,Whole Blood 104 mg/dL (75-99)
[2019-10-14] MEDS: PANTOPRAZOLE 40 MG TABLET PO SCH (06:52)
[2019-10-14] MEDS: IPRATROPIUM-ALBUTEROL 3 ML NEB INHALATION SCH ×4 (07:35→20:06)
[2019-10-14] MEDS: NYSTATIN 100,000 UNIT/ML SUSP 500,000 UNIT/5 ML CUP PO SCH ×4 (08:01→20:51)
[2019-10-14] MEDS: ASPIRIN 325 MG TAB PO SCH (08:01)
[2019-10-14] MEDS: CITALOPRAM HYDROBROMIDE 20 MG TAB PO SCH (08:01)
[2019-10-14] MEDS: CLOPIDOGREL 75 MG TAB PO SCH (08:01)
[2019-10-14] MEDS: AMIODARONE 200 MG TAB PO SCH ×2 (08:01→08:32)
[2019-10-14] MEDS: allopurinoL 300 MG TAB PO SCH (08:01)
[2019-10-14] MEDS: INSULIN DETEMIR (LEVEMIR) 100 UNIT/ML SYR SQ SCH ×2 (08:02→20:52)
[2019-10-14] MEDS: SPIRONOLACTONE 25 MG TAB PO SCH (08:02)
[2019-10-14] MEDS: ATORVASTATIN 40 MG TAB PO SCH (08:02)
[2019-10-14] MEDS: ACETAMINOPHEN TAB 500 MG TAB PO PRN ×2 (08:03→15:26)
[2019-10-14] MEDS: METOPROLOL TARTRATE 12.5 MG TAB PO SCH (08:03)
--- NOTE | 2019-10-14 08:07 | P.PN ---
Subjective Progress Note Date: 10/14/19 Principal diagnosis: Single vessel coronary artery disease, severe functional mitral valve regurgitation with mild tricuspid valve regurgitation and heart failure. Past medical history significant for hypertension, coronary artery disease with previous stent placement to her proximal left anterior descending coronary artery in 2017, hyperlipidemia, insulin-dependent diabetes mellitus poorly controlled with a preoperative hemoglobin A1c of 10.7%, morbid obesity, stage III chronic kidney disease with a baseline creatinine of 1.5, obstructive sleep apnea, pulmonary hypertension and preoperative urinary tract infection of Klebsiella pneumoniae which was treated. POD #11 single coronary artery bypass grafting using the left internal mammary artery to left anterior descending coronary artery, mitral valve repair using a reduction annuloplasty with a 28 mm Physio-II ring, exclusion of the left atrial appendage using a 45 mm Atriclip, intraoperative graft flow measurements using the Polyera sytem, intraoperative epi-aortic scanning and transesophageal echocardiogram. Postoperative acute blood loss anemia, expected outcome secondary to cardiopulmonary bypass and hemodilution. Postoperative paroxysmal controlled atrial fibrillation, unexpected but common occurrence after open heart surgery Postoperative second-degree type 2/third-degree heart block, an unexpected but potential outcome of surgery. Postoperative leukocytosis, without fever and no obvious signs of infection. Postoperative constipation, unexpected Postoperative acute urinary retention, unexpected POD #[address] [employer] permanent pacemaker with ICD by Dr. Kendall The patient is currently sitting in the chair in the intensive care unit in no acute distress. Denies significant pain, does admit to some soreness in her chest, denies shortness of breath. She is awake, oriented x 3 and following commands. She went for pacemaker/ICD placement yesterday. Currently 100% ventricular paced, hemodynamically stable. Requiring very low-dose oxygen of 1 L to keep her oxygen saturation in the 90s, otherwise pulse ox 87-88% on room air at rest. Her Hinkle catheter was removed last night per urology recommendations as she had ambulated multiple times in the hallway yesterday and was moving her bowels per urology's recommendations, however she has been unable to void since removal last night. Bladder scan this morning revealed residual 260 mL of urine. Patient did have small bowel movement this morning Objective - Vital Signs Vital signs: Vital Signs Temp 98 F 10/14/19 04:00 Pulse 59 L 10/14/19 07:00 Resp 23 10/14/19 07:00 BP 109/43 10/14/19 07:00 Pulse Ox 89 L 10/14/19 07:00 Intake & Output 10/13/19 10/14/19 10/14/19 18:59 06:59 18:59 Intake Total 1000 220 550 Output Total 430 270 0 Balance 570 -50 550 Weight 96.3 kg Intake: IV 600 100 550 ACETAMINOPHEN IV (For NPO 100 ) 1,000 mg In Empty Bag 1 bag @ 400 mls/hr IVPB ONCE ONE Rx#:[id number] Ampicillin-Sulbactam 3 gm 100 In Sodium Chloride 0.9% 100 ml @ 200 mls/hr IVPB Q6HR [facility] Rx#:[id number] Sodium Chloride 0.9% 1, 550 000 ml @ 50 mls/hr IV . Q20H [facility] Rx#:[id number] ceFAZolin 2 gm In Sodium 0 0 Chloride 0.9% 50 ml @ 100 mls/hr IVPB ONCE ONE Rx# :[id number] Intake, IV Titration 150 Amount Sodium Chloride 0.9% 1, 150 000 ml @ 50 mls/hr IV . Q20H [facility] Rx#:[id number] Oral 250 120 Output: Urine 430 270 0 Other: Voiding Method Indwelling Catheter Indwelling Catheter ABP, PAP, CO, CI - Last Documented Arterial Blood Pressure 130/42 Pulmonary Artery Pressure 46/22 Cardiac Output 4.6 Cardiac Index 2.6 - Constitutional General appearance: Present: cooperative, no acute distress, obese - Respiratory Details: Lung sounds are essentially clear to her bilateral upper lobes, diminished bilateral bases. Respirations are even, nonlabored. Oxygen saturation 87-89% on room air, mid 90s on 1 L nasal cannula. She achieves 1000 mL on incentive spirometry, strong nonproductive cough - Cardiovascular Details: S1, S2 present. Regular rate and rhythm, 100% ventricular paced on telemetry. Sternum stable. A/V epicardial pacemaker wires present, grounded. Palpable peripheral pulses bilaterally. No edema present. No Apparent tenderness noted. Heart hugger in place with patient demonstrating appropriate use. Antiembolism stockings, SCDs present. - Gastrointestinal Gastrointestinal Comment(s): Abdomen soft, nontender, nondistended. Active bowel sounds present 4 quadrants. Tolerating diet. Positive small bowel movement this morning. - Genitourinary Genitourinary Comment(s): Hinkle discontinued last night, patient unable to void this morning, bladder scan revealed 260 mL residual - Integumentary Integumentary Comment(s): Skin is warm and dry with evidence of good perfusion. Anterior chest incision well approximated and covered with dry intact dressing, left upper chest ICD site dressing dry and intact. - Neurologic Neurologic: Present: CNII-XII intact - Musculoskeletal Musculoskeletal: Present: gait normal, strength equal bilaterally - Psychiatric Psychiatric: Present: A&O x's 3, appropriate affect - Allied health notes Allied health notes reviewed: nursing - Labs CBC & Chem 7: 10/14/19 04:27 10/14/19 04:27 Labs: Abnormal Lab Results - Last 24 Hours (Table) 10/13/19 10/13/19 10/14/19 Range/Units 21:00 23:39 04:27 WBC 11.0 H (3.8-10.6) k/uL RBC 2.56 L (3.80-5.40) m/uL Hgb 7.1 L (11.4-16.0) gm/dL Hct 23.7 L (34.0-46.0) % MCHC 29.9 L (31.0-37.0) g/dL RDW 19.1 H (11.5-15.5) % Chloride (98-107) mmol/L Carbon Dioxide (22-30) mmol/L BUN (7-17) mg/dL Creatinine (0.52-1.04) mg/dL Glucose (74-99) mg/dL POC Glucose (mg/dL) 64 L 102 H (75-99) mg/dL C-Reactive Protein (<10.0) mg/L 10/14/19 10/14/19 Range/Units 04:27 06:12 WBC (3.8-10.6) k/uL RBC (3.80-5.40) m/uL Hgb (11.4-16.0) gm/dL Hct (34.0-46.0) % MCHC (31.0-37.0) g/dL RDW (11.5-15.5) % Chloride 111 H (98-107) mmol/L Carbon Dioxide 21 L (22-30) mmol/L BUN 51 H (7-17) mg/dL Creatinine 2.02 H (0.52-1.04) mg/dL Glucose 69 L (74-99) mg/dL POC Glucose (mg/dL) 104 H (75-99) mg/dL C-Reactive Protein 72.0 H (<10.0) mg/L Microbiology - Last 24 Hours (Table) 10/10/19 09:31 Blood Culture - Preliminary Blood No Growth after 72 hours 10/10/19 09:45 Blood Culture - Preliminary Blood No Growth after 72 hours - Imaging and Cardiology Chest x-ray: image reviewed Assessment and Plan Assessment: 1. Single-vessel coronary artery disease, status post single vessel coronary artery bypass grafting REYES to the left anterior descending coronary artery 2. Severe functional mitral valve regurgitation, status post mitral valve repair using a reduction annuloplasty with a 28 mm physio-II ring 3. Mild tricuspid valve regurgitation 4. Acute on chronic systolic heart failure, with a preoperative ejection fraction of 35-40%, postoperative EF 25-30%, status post [employer] permanent pacemaker with ICD 5. History of coronary artery disease with previous stent placement to her left anterior descending coronary artery in 2017 6. Hypertension 7. Dyslipidemia 8. Poorly controlled insulin-dependent diabetes mellitus with a preoperative hemoglobin A1c of 10.7% 8. Ischemic cardiomyopathy 9. Pulmonary hypertension, likely related to valvular disease 10. Stage III chronic kidney disease with a baseline creatinine of 1.5 11. Obstructive sleep apnea 12. Preoperative urinary tract infection of Klebsiella pneumoniae, treated 13. Morbid obesity 14. Postoperative acute blood loss anemia 15. Postoperative second-degree type 2/third-degree heart block, an unexpected but potential outcome of surgery 16. Postoperative paroxysmal atrial fibrillation, an unexpected but potential outcome of surgery 17. Postoperative leukocytosis, without fever and no obvious signs of infection 18. Postoperative urinary retention 19. Postoperative constipation Plan: 1. Continue aspirin, statin, Plavix, and beta anaid. Beta anaid change to metoprolol succinate [address] Kendall. Continue Cozaar, Aldactone 2. Continue amiodarone 400 mg by mouth daily for [address] Kendall. 3. Wean O2 as tolerated. Encourage incentive spirometry 10 times every hour while awake. 4. Bronchodilators per pulmonology management. 5. Increase activity, out of bed for all meals, ambulate minimum 4 x daily. PT/OT/cardiac rehab following. 6. Will monitor daily labs and chest x-rays. Electrolyte replacement per protocol. 7. Pain controlled current medication regimen. Avoid NSAIDs due to the patient's renal function. 8. Insulin management per primary care service. 9. Will discontinue epicardial pacemaker wires, patient remained on bedrest for 1 hour post-removal 10. Dr. Miller from urology consult noted, Hinkle discontinued last night per urology recommendations as patient was ambulating and was stooling 11. Continue antibiotic, managed by Dr. Ocasio from infectious disease, blood culture showed no growth after 72 hours. 12. Anticipate discharge today versus tomorrow, IPR versus home dependent on need for IV antibiotics, Hinkle catheter, oxygen. Patient may need closer monitoring than can be given at home 13. More recommendations to follow Time with Patient: Greater than 30
--- NOTE | 2019-10-14 08:20 | XR ---
EXAMINATION TYPE: XR chest 2V DATE OF EXAM: 10/14/2019 COMPARISON: Prior chest x-ray 10/11/2019 HISTORY: Lead placement check TECHNIQUE: Frontal and lateral views of the chest are obtained. FINDINGS: Patient is post median sternotomy. There is a generator in the left pectoral region which has been placed in the interval, there are leads in right atrium and ventricle, coronary sinus level. Patient is post atrial appendage clipping placement and cardiac valve replacement. Patient is rotate d. There is no pneumothorax or pleural effusion. There are overlying artifacts. Patchy basilar densit y likely represents subsegmental atelectatic change. There are epicardial pacing leads. IMPRESSION: Basilar atelectasis, leads as described
--- NOTE | 2019-10-14 08:28 | P.PN ---
Subjective Progress Note Date: 10/14/19 Principal diagnosis: Status post CABG, mitral valve repair, postoperative day #7 68-year-old of Dr. Moore, with past medical history of coronary artery disease with previous stenting of the LAD in 2017, hypertension, hyperlipidemia, insulin-dependent diabetes mellitus, morbid obesity, stage III chronic kidney disease, pulmonary hypertension, family history of hypertension and diabetes. Patient was hospitalized last November 2018 when she presented with complaints of severe, constant, sharp chest pain with left arm radiation. Patient had echocardiogram that showed a moderately impaired LV function with EF of 35-40%, mild aortic regurgitation, mild mitral annular calcification and moderate to severe mitral regurgitation. There was evidence of severe pulmonary hyperten aniyah and moderate tricuspid regurg. Patient went on to have cardiac catheterization that showed LAD stenosis of 70% in the proximal portion. [place] showed EF of 35-40%, severe mitral regurgitation, with a dilated annulus and poor coaptation of the mitral leaflets and moderate to severe tricuspid regu rgitation. She was referred to CT surgery for surgical evaluation, and it took her several months to obtain dental clearance, and optimize her diabetes. Today on 10/03/2019 patient had a one-vessel bypass with REYES to LAD, and mitral valve repair, his occlusion of the left atrial appendage. She is seen in the postoperative period in the intensive care unit, she is intubated, sedated on mechanical ventilator, current vent settings assist control mode with a rate of 16, tidal vital 350, FiO2 50% and PEEP of 8. Current drips include 0.9 normal saline at a rate of 50, Primacor at 0.3 mics per kilo per minute, levo fed at 0.04 mics per kilo per minute, insulin drip, and Diprivan at 20 mics per kilo per minute. PA pressure is 48/27, CVP 13, cardiac output and index are 4.6 and 2.6 respectively, AV wires in place, patient is on VVI Mode and is currently pacing at 100%. 2 mediastinal chest tubes with 130 mL of sanguinous output, left pleural and right pleural with 120 and 50 ML of sanguinous output respectively. Postop blood work shows a white blood cell count of 12.3, hemoglobin of 8.7, sodium is 136, the rest of electrolytes are within normal limits, BUN 62 and creatinine is 1.74. Patient was reevaluated today on 10/04/19, patient was extubated around 4 AM this morning. He tolerated the extubation quite well. Presently on IV fluid at 50 mL per hour. Patient has intermittent episodes of confusion. Remains on Primacor at 0. one 5 mcg/kg/m. Patient is paced with VVI pacemaker at 50 bpm. Her cardiac index is 2.8, cardiac output is 5 CVP is 10. Chest x-ray showed minimal atelectasis at the bases. Patient had REYES to LAD, mitral valve repair and she again she is postoperative day #1. Patient is on 6 L high flow nasal cannula. O2 saturations 98%. Achieving 500 mL on her incentive spirometer. She has noted some surgical type of pain at the side of her chest tube insertion, and mostly when taking a deep breath. Denies shortness of breath. Mediastinal right and left pleural chest tubes remain in place. On continuous wall suction. No air leak. Draining thin serosanguineous drainage with the 130 mL output in the last 8 hours and 300 mL output since surgery from the mediastinal chest tubes. Patient was reevaluated today on 10/05/19, patient remains sitting in bed, doing well, no specific complaints. She is oriented [address] mostly [address] and [address]. Not oriented to time. Denies any complaints, she has some vague chest pain upon taking a deep breath. She is hemodynamically stable, not requiring any pressors. Her cardiac index is 2.6, cardiac output is 4.6. CVP is 14. Chest x-ray showed minimal atelectasis at the bases especially at the left base. Patient remains on 4 L nasal cannula, and O2 saturations 96%. She is achieving about 500 MLS her incentive spirometer. Her mediastinal left and right pleural chest tubes remained in place, no air leak noted. Drainage was noted, amount is becoming less and less over the last 2 days. She had a T-max of 99.7. Otherwise the patient is doing great. She does seem to be globally weak Patient was reevaluated today on 10/06/19, remains in the ICU, patient is sitting in a recliner. Denies any shortness of breath, no cough no wheezing, presently she has sinus rhythm and a second-degree AV block, hemodynamically stable, not requiring any pressors and at night she went into controlled atrial fib rillation. Placed on amiodarone and she remains on protocol this morning. Dr. Tavarez was consulted regarding her arrhythmia. He is recommending switching patient to oral amiodarone. Low-dose beta blockers and possibly eventually placed the patient back on her Coreg twice a day. No plans at least at this point to place a permanent pacer. He will assess the patient on outpatient basis chest x-ray today showed mostly left basilar atelectasis. Reevaluated today on 11/03/19, patient is doing quite well. Remains in the ICU, in no distress, denies any shortness of breath or pain. Heart rate is in the low 60s and 70s, patient is in atrial fibrillation. Hemodynamically stable. And she is doing better with incentive spirometry. Chest x-ray continues to show minimal left basilar atelectasis. Reevaluated today on 10/08/19, patient is doing fairly well, asymptomatic, chest x-ray is showing improvement, continues to have issues related to her intermittent episodes of cardiac arrhythmia. Patient is not requiring any inotropes. She is hemodynamically stable. Patient is presently in atrial fibrillation, she is on 2 L nasal cannula. And she is being considered for AICD placement next Thursday. Patient was reevaluated today on 10/09/19, remains in the ICU, but the patient is doing great. Sitting at a bedside chair, awake oriented 3, basically asymptomatic. Chest x-ray seems to be reassuring. Telemetry shows atrial fibrillation with left bundle branch block, rate is 84. O2 saturations 95% on 2 L. Doing much better with incentive spirometer. On 10/10/2019 patient is seen in follow-up in the intensive care unit, she is awake and alert, in no acute distress, she is resting comfortably in bed, she is currently on 2 L of oxygen, her pulse ox is 9200%, vital signs are stable, she is afebrile, she is in sinus mechanism on the monitor, with a rate of 62. No acute events overnight, her chest tubes have been discontinued, her AV wires are in place connected to external pacemaker with backup rate of 50, intrinsic rhythm is sinus, with a rate of 62. Patient has been nothing by mouth since midnight, she is scheduled for pacemaker/AICD placement today, she denies any pulmonary complaints, denies any shortness of breath, her pain is under good control, lung sounds are clear to auscultation, patient is working on incentive spirometer, effort to the 750 ML. Today's chest x-ray has been reviewed showing subsegmental areas of consolidation bilaterally that are stable in appearance and likely related to postoperative atelectasis. These labs have been reviewed showing white blood cell, 17.1, hemoglobin of 7.2, electrolytes are within normal limits, BUN of 55 and creatinine is 1.76. Patient has been tolerating ambulation in the hallway. On 10/11/2019 patient seen in follow-up in the intensive care unit, she is resting in bed, in no acute distress, she is on 2 L of oxygen pulse ox of 97%, she has been afebrile, hemodynamically patient is stable, sinus rhythm on mo nitor, AV wires connected to external pacemaker with backup rate of 50. Yesterday patient's pacemaker/AICD placement was delayed related to leukocytosis. Today's labs have been reviewed and with blood cell count has trended further up to 20.8, hemoglobin is 6.5, platelet count is 325, sodium is 141, potassium is 4.5, chloride is 108, CO2 is 24, B1 is 60 and creatinine is 1.71. Patient denies any shortness of breath, she is working on incentive spirometer, her effort today is about 750 ML. Lung sounds are positive for bibasilar crackles, no rhonchi no wheezing, patient will nonproductive cough. Urinalysis was sent yesterday and results show no evidence of infection. His chest x-ray shows left basilar atelectasis, no evidence of consolidation or pneumonia. Cultures have been sent and pending. Rashes disease has been consulted, and patient has been placed on Eraxis, and oral nystatin. On 10/12/2019 patient seen in follow-up in the intensive care unit, today she is awake and alert, she sitting up in the recliner, in no acute distress, she is on 2 L of oxygen the pulse ox of 96%, denies any specific complaints, she is working incentive spirometer, achieving 750 on it today. Lung sounds are clear, no rhonchi, no wheezing. She has been tolerating ambulation. No complaints of nausea vomiting or diarrhea, abdomen is soft, nontender. Patient is hemodynamically stable, in sinus mechanism with a controlled rate. No fever or chills, his labs have been reviewed, showing with the toco 919.8, hemoglobin of 8.2, platelet count 342, sodium is 137, potassium is 4.4, chloride is 109, CO2 is 19, B1 55 and creatinine 1.78. Urine culture is negative, blood cultures are negative thus far showing no growth at the 24-hour abilio. Still unclear the source of leukocytosis, ID service is following, patient is on oral nystatin and Eraxis. No evidence of oropharyngeal thrush. Midsternal incision clean dry and intact On 10/13/2019 patient seen in follow-up in the intensive care unit, today is postoperative day 9, status post 1 vessel bypass, mitral valve repair. Patient is awake and alert, oriented 3, she is in no acute distress. She is on room air, her pulse ox is 95%, hemodynamically stable, sinus rhythm on the monitor. He wires in place, connected to external pacemaker with a backup rate. No shortness of breath, lung sounds are clear, midsternal incisions clean dry and intact, chest tube sites are clean dry and intact. Patient is working on incentive spirometer, achieving 1000 ml today. No new chest x-ray today. Today's labs show white blood cell trending further down, down to 13.0, hemoglobin is 7.7, platelet count was 373, sodium is 137, potassium 3.9, ch loride is 109, CO2 is 20, BUN is 54, and creatinine is 1.94. Abdomen is soft, patient is passing bowel movements, surgical consultation was obtained regarding constipation and fecal impaction patient was given soapsuds enemas and started passing large bowel movements. Tolerating Oral diet, no nausea no vomiting. On 10/14/2019 patient is seen in follow-up in the intensive care unit, today is postoperative day 10, status post 1 vessel bypass, and mitral valve repair. Patient is up in the recliner, denies any acute distress, she is on 2 L of supplemental oxygen with a pulse ox of 97%, yesterday she went for insertion of permanent pacemaker/AICD, tolerated procedure well, currently is in paced rhythm on a monitor, at a rate of 65 BPM. Hemodynamically patient remains stable, left upper chest incision is covered with a surgical dressing, soft. Patient denies any shortness of breath, lung sounds are clear to auscultation. Today's chest x-ray shows basilar atelectasis. No fever or chills, vital signs have been stable overnight, no acute complaints, today's labs have been reviewed, white blood cell is to trend down, down to 11 on today's labs, hemoglobin is 7.1, sodium is 139, potassium is 4.1, chloride is 111, CO2 is 21, BUN is 51, creatinine is 2.02. Nausea vomiting or diarrhea, patient is tolerating oral intake. So far urine and blood cultures have been negative. Currently on Unasyn for empiric antibiotic coverage, ID service is following. 1 dose of vancomycin was given as well. Objective - Vital Signs Vital signs: Vital Signs Temp 98.1 F 10/14/19 08:00 Pulse 65 10/14/19 08:00 Resp 12 10/14/19 08:00 BP 109/43 10/14/19 08:00 Pulse Ox 97 10/14/19 08:00 Intake & Output 10/13/19 10/14/19 10/14/19 18:59 06:59 18:59 Intake Total 1000 220 790 Output Total 430 270 0 Balance 570 -50 790 Weight 96.3 kg Intake: IV 600 100 550 ACETAMINOPHEN IV (For NPO 100 ) 1,000 mg In Empty Bag 1 bag @ 400 mls/hr IVPB ONCE ONE Rx#:[id number] Ampicillin-Sulbactam 3 gm 100 In Sodium Chloride 0.9% 100 ml @ 200 mls/hr IVPB Q6HR [facility] Rx#:[id number] Sodium Chloride 0.9% 1, 550 000 ml @ 50 mls/hr IV . Q20H [facility] Rx#:[id number] ceFAZolin 2 gm In Sodium 0 0 Chloride 0.9% 50 ml @ 100 mls/hr IVPB ONCE ONE Rx# :[id number] Intake, IV Titration 150 Amount Sodium Chloride 0.9% 1, 150 000 ml @ 50 mls/hr IV . Q20H [facility] Rx#:[id number] Oral 250 120 240 Output: Urine 430 270 0 Other: Voiding Method Indwelling Catheter Indwelling Catheter ABP, PAP, CO, CI - Last Documented Arterial Blood Pressure 130/42 Pulmonary Artery Pressure 46/22 Cardiac Output 4.6 Cardiac Index 2.6 - Exam GENERAL EXAM: Alert, very pleasant, 68-year-old female, on 2 L of oxygen a pulse ox of 97%, comfortable in no apparent distress. HEAD: Normocephalic/atraumatic. EYES: Normal reaction of pupils, equal size. Conjunctiva pink, sclera white. NOSE: Clear with pink turbinates. THROAT: No erythema or exudates. NECK: No masses, no JVD, no thyroid enlargement, no adenopathy. CHEST: No chest wall deformity. Symmetrical expansion. Midsternal incision, clean dry and intact, chest tube sites are clean dry and intact, left upper chest permanent pacemaker AICD incision is clean dry and intact LUNGS: Equal air entry with no crackles, wheeze, rhonchi or dullness. CVS: Regular rate and rhythm, normal S1 and S2, no gallops, no murmurs, no rubs ABDOMEN: Soft, nontender. No hepatosplenomegaly, normal bowel sounds, no guarding or rigidity. EXTREMITIES: No clubbing, no edema, no cyanosis, 2+ pulses and upper and lower extremities. MUSCULOSKELETAL: Muscle strength and tone normal. SPINE: No scoliosis or deformity SKIN: No rashes CENTRAL NERVOUS SYSTEM: Alert and oriented -3. No focal deficits, tone is normal in all 4 extremities. PSYCHIATRIC: Alert and oriented -3. Appropriate affect. Intact judgment and insight. - Labs CBC & Chem 7: 10/14/19 04:27 10/14/19 04:27 Labs: Abnormal Lab Results - Last 24 Hours (Table) 10/13/19 10/13/19 10/14/19 Range/Units 21:00 23:39 04:27 WBC 11.0 H (3.8-10.6) k/uL RBC 2.56 L (3.80-5.40) m/uL Hgb 7.1 L (11.4-16.0) gm/dL Hct 23.7 L (34.0-46.0) % MCHC 29.9 L (31.0-37.0) g/dL RDW 19.1 H (11.5-15.5) % Chloride (98-107) mmol/L Carbon Dioxide (22-30) mmol/L BUN (7-17) mg/dL Creatinine (0.52-1.04) mg/dL Glucose (74-99) mg/dL POC Glucose (mg/dL) 64 L 102 H (75-99) mg/dL C-Reactive Protein (<10.0) mg/L 10/14/19 10/14/19 Range/Units 04:27 06:12 WBC (3.8-10.6) k/uL RBC (3.80-5.40) m/uL Hgb (11.4-16.0) gm/dL Hct (34.0-46.0) % MCHC (31.0-37.0) g/dL RDW (11.5-15.5) % Chloride 111 H (98-107) mmol/L Carbon Dioxide 21 L (22-30) mmol/L BUN 51 H (7-17) mg/dL Creatinine 2.02 H (0.52-1.04) mg/dL Glucose 69 L (74-99) mg/dL POC Glucose (mg/dL) 104 H (75-99) mg/dL C-Reactive Protein 72.0 H (<10.0) mg/L Microbiology - Last 24 Hours (Table) 10/10/19 09:31 Blood Culture - Preliminary Blood No Growth after 72 hours 10/10/19 09:45 Blood Culture - Preliminary Blood No Growth after 72 hours Assessment and Plan Plan: Assessment: #1. Coronary artery disease, severe mitral regurgitation, status post 1 vessel bypass REYES to LAD, and mitral valve repair, left atrial appendage exclusion, postoperative day 10 #2. Leukocytosis, unspecified, rule out infectious process, but cultures are pending, patient is afebrile, urinalysis without any sign of infection, chest x- ray showing cardiomegaly, possible left basilar atelectasis, right lung is clear. Improving on today's labs, down to 13.0 on 10/13/2019. Continues to improve on today's labs on 10/14/2019 #3. Chronic congestive heart failure, systolic in nature #4. Post-op of cardiac arrhythmia, status post permanent pacemaker AICD placement, postoperative day #1 #5. Acute blood loss anemia, expected outcome of bypass and mitral valve repair surgery #6 Chronic kidney disease #7. Recent history of urinary tract infection, with urine culture positive for Klebsiella pneumonia treated with ciprofloxacin #8. Normal preop spirometry with FEV1 of 92% of predicted #9. History of diabetes mellitus, poorly controlled #10. Hypertension #11. Hyperlipidemia #12. Previous stenting of the LAD 2017 #13. Ischemic cardiomyopathy with LV function of 35-40% #14. Pulmonary hypertension likely related to valvular heart disease #15. Family history of hypertension and diabetes Plan: Today's chest x-ray has been reviewed, showing basilar atelectasis. Hemodynamic patient is stable, no acute events overnight, she is in paced rhythm on the monitor, no shortness of breath, she is working on incentive spirometer, antibiotics per ID service recommendations, white blood cell count is improving, no fever or chills, no specific complaints, encourage ambulation. Anticipate transfer to inpatient rehabilitation center today. I performed a history & physical examination of the patient and discussed their management with my nurse practitioner, Ashlee Elaine. I reviewed the nurse practitioner's note and agree with the documented findings and plan of care. Lung sounds are positive for diminished breath sounds. The findings and the impression was discussed with the patient. I attest to the documentation by the nurse practitioner. Time with Patient: Less than 30
[2019-10-14] MEDS ORDERED: METOPROLOL TARTRATE 12.5 MG TAB PO STA (08:29)
[2019-10-14] MEDS: polyethylene glycoL 3350 17 GM POWD.PACK PO SCH (09:30)
[2019-10-14 12:10] LABS: Glucose,Whole Blood 193 mg/dL (75-99)
[2019-10-14] MEDS: LOSARTAN 25 MG TAB PO SCH (12:19)
--- NOTE | 2019-10-14 14:02 | P.PN ---
Subjective 68 years old female with past medical history of coronary artery disease, heart failure status post stent placement, diabetes mellitus, GERD, hypertension, hyperlipidemia, sleep apnea on CPAP/BiPAP, hypothyroidism. She is a status post 1 vessel bypass surgery and today postop day #1. She also got extubated today and currently she is on nasal cannula at 4 L/m was saturating 95-98%, patient denies chest pain or dyspnea except as surgical site which is expected. Rest of Vitas looks stable. Labs reviewed showed mild leukocytosis of 12 K, INR is normal, sugar controlled, creatinine 1.9 (baseline 1.4-2.0) Chest x-ray: Improved radiation Patient is currently on aspirin, metoprolol, oral levothyroxine, Protonix 10/05/2019 Patient remains in the ICU with no chest pain or dyspnea. However today her blood pressure dropped with physical therapy session went down to 80/40, patient brought back on lying position in the chair, she was fully awake and oriented however she looked pale with no chest pain or dyspnea. Recheck blood pressure show improvement, please see records. Progressive vitals are stable. Sugar controlled 141-152 today her chest tube and swelling Came out 10/06/2019 Patient is awake and alert, looks tired but she denies chest pain or dyspnea and vitals are stable. Sugar controlled and WBC is trending down to 11.6 K. Creatinine down to 1.7. Patient was on insulin drip which could be stopped, patient is eating. Resume her Levemir 15 units twice a day (was 22 units at home) and 3 units with meals (was 6 units at home), keep insulin sliding scale. Cardiology team also following the case today. 10/07/2019 Patient is up in chair, no dizziness, blood pressure is a stable at 117/66. No postural symptoms. She was sitting and eating in bed with no difficulty. She still have some pain in the surgical site which is expected. Mild Leukocytosis of 12.4 K. Creatinine 1.8 him at baseline. Sugar control, continue with same regimen 10/08/19 Patient is in chair, no chest pain, no dizziness. Breathing quietly. Vitas looks stable and blood pressure 109/63, heart rate is 77 beats per minute which is sinus. She is eating well and tolerating that well however she has constipation and ask for some laxative WBC is 11.4 K,, creatinine at baseline 1.7 Dr. Coppola evaluated patient for possible inpatient rehab, patient agrees Patient may be considered for transfer to general medical floor 10/09/2019 Patient lying comfortable in bed, no chest pain or dyspnea, she is tolerating diet well. Vitals are stable. WBC is trending down to 13 K, hemoglobin 7.3, creatinine is improving to 1.6. Chest x-ray: subsegmental areas of consolidation by laboratory are stable, related to postoperative atelectasis Patient has been having periods of bradycardia with armament repairer evaluated patient and found her with bradycardia, periods of A. fib and with left bundle branch block and prolonged AK interval, with planning for placement of AICD device on Thursday Patient remains in the ICU for now 10/10/2019 Patient will be going for permanent pacemaker and AICD placement today patient had any of of around 20%. Patient does have leukocytosis. Patient was a evaluated by infectious disease no fever at this time. Patient was started on antifungal medications by infectious disease 10/11/2019 Patient was having severe constipation and some additional risk and urine patient was started on lactulose and mineral oil enema 10/12/2019 Patient is cost patient resolved after manual disimpaction. Creatinine remained stable leukocytosis improving. 10/13/2019 No significant overnight events. Patient will undergo pacemaker placement his creatinine is bit worse. White blood cell count improved 10/14/2019 Patient has an AICD and pacemaker placed as today overall she is clinically doing well but has creatinine is slowly going up patient is low on losartan and Aldactone probably this can be held temporarily.. Patient is presently on Unasyn, and fundus were discontinued. Constitutional: Denied any fatigue denied any fever. Cardio vascular: denied any chest pain, palpitations Gastrointestinal denied any nausea vomiting Pulmonary: Denied any shortness of breath cough Neurologic denied any new focal deficits All inpatient medications were reviewed and appropriate changes in these medications as dictated in the interval history and assessment and plan. Objective - Vital Signs Vital signs: Vital Signs Temp 98.1 F 10/14/19 12:00 Pulse 61 10/14/19 12:00 Resp 16 10/14/19 12:00 BP 120/51 10/14/19 12:00 Pulse Ox 98 10/14/19 12:00 Intake & Output 10/13/19 10/14/19 10/14/19 18:59 06:59 18:59 Intake Total 7877 035 7202 Output Total 430 270 0 Balance 570 -50 1250 Weight 96.3 kg Intake: IV 600 100 650 ACETAMINOPHEN IV (For NPO 100 ) 1,000 mg In Empty Bag 1 bag @ 400 mls/hr IVPB ONCE ONE Rx#:[id number] Ampicillin-Sulbactam 3 gm 100 In Sodium Chloride 0.9% 100 ml @ 200 mls/hr IVPB Q12H [facility] Rx#:[id number] Ampicillin-Sulbactam 3 gm 100 In Sodium Chloride 0.9% 100 ml @ 200 mls/hr IVPB Q6HR [facility] Rx#:[id number] Sodium Chloride 0.9% 1, 550 000 ml @ 50 mls/hr IV . Q20H [facility] Rx#:[id number] ceFAZolin 2 gm In Sodium 0 0 Chloride 0.9% 50 ml @ 100 mls/hr IVPB ONCE ONE Rx# :[id number] Intake, IV Titration 150 Amount Sodium Chloride 0.9% 1, 150 000 ml @ 50 mls/hr IV . Q20H [facility] Rx#:[id number] Oral 250 120 600 Output: Urine 430 270 0 Other: Voiding Method Indwelling Catheter Indwelling Catheter # Voids 1 ABP, PAP, CO, CI - Last Documented Arterial Blood Pressure 130/42 Pulmonary Artery Pressure 46/22 Cardiac Output 4.6 Cardiac Index 2.6 - Exam GENERAL: The patient is alert and oriented x3, not in any acute distress. Well developed, well nourished. HEENT: Pupils are round and equally reacting to light. EOMI. No scleral icterus. No conjunctival pallor. Normocephalic, atraumatic. No pharyngeal erythema. No thyromegaly. -CARDIOVASCULAR: S1 and S2 present. No murmurs, rubs, or gallops. Sternal wound is in a dressing PULMONARY: Chest is clear to auscultation, no wheezing or crackles. ABDOMEN: Soft, nontender, nondistended, normoactive bowel sounds. No palpable organomegaly. MUSCULOSKELETAL: No joint swelling or deformity. EXTREMITIES: No cyanosis, clubbing, or pedal edema. NEUROLOGICAL: Gross neurological examination did not reveal any focal deficits. SKIN: No rashes. No petechiae - Labs CBC & Chem 7: 10/14/19 04:27 10/14/19 04:27 Labs: Abnormal Lab Results - Last 24 Hours (Table) 10/13/19 10/13/19 10/14/19 Range/Units 21:00 23:39 04:27 WBC 11.0 H (3.8-10.6) k/uL RBC 2.56 L (3.80-5.40) m/uL Hgb 7.1 L (11.4-16.0) gm/dL Hct 23.7 L (34.0-46.0) % MCHC 29.9 L (31.0-37.0) g/dL RDW 19.1 H (11.5-15.5) % Chloride (98-107) mmol/L Carbon Dioxide (22-30) mmol/L BUN (7-17) mg/dL Creatinine (0.52-1.04) mg/dL Glucose (74-99) mg/dL POC Glucose (mg/dL) 64 L 102 H (75-99) mg/dL C-Reactive Protein (<10.0) mg/L 10/14/19 10/14/19 10/14/19 Range/Units 04:27 06:12 12:09 WBC (3.8-10.6) k/uL RBC (3.80-5.40) m/uL Hgb (11.4-16.0) gm/dL Hct (34.0-46.0) % MCHC (31.0-37.0) g/dL RDW (11.5-15.5) % Chloride 111 H (98-107) mmol/L Carbon Dioxide 21 L (22-30) mmol/L BUN 51 H (7-17) mg/dL Creatinine 2.02 H (0.52-1.04) mg/dL Glucose 69 L (74-99) mg/dL POC Glucose (mg/dL) 104 H 193 H (75-99) mg/dL C-Reactive Protein 72.0 H (<10.0) mg/L Microbiology - Last 24 Hours (Table) 10/10/19 09:31 Blood Culture - Preliminary Blood No Growth after 96 hours 10/10/19 09:45 Blood Culture - Preliminary Blood No Growth after 96 hours Assessment and Plan Plan: coronary artery disease, status post 1 vessel bypass surgery Cardiac arrhythmia with periods of A. fib, bradycardia, left bundle branch block Hypertension Diabetes mellitus Hyperlipidemia chronic kidney disease, stage III : Acute kidney injury with the present serum creatinine of 2 secondary to congestive heart failure -Congestive heart failure chronic systolic dysfunction EF of around 20% with some acute exacerbation: Patient is status post pacemaker placement History of coronary artery disease, status post stent placement GERD -severe constipation: Further management as mentioned above were those measures doesn't help patient will be started on GoLYTELY Severe mitral regurgitation, severe tricuspid regurgitation Severe pulmonary hypertension Hypothyroidism Sleep apnea on CPAP/BiPAP chronic
--- NOTE | 2019-10-14 14:03 | P.PN ---
Subjective Progress Note Date: 10/14/19 The patient is doing much better. She is ambulating. Her bowels are moving. The catheters removed. Her most recent residual was over 300 but then she voided about 200. I would keep an eye on her residuals. As long as it remains less than 200 I would not do anything. She is on Unasyn. I probably obtain a urinalysis and culture in the morning if she continues to void. Objective - Vital Signs Vital signs: Vital Signs Temp 98.1 F 10/14/19 12:00 Pulse 61 10/14/19 12:00 Resp 16 10/14/19 12:00 BP 120/51 10/14/19 12:00 Pulse Ox 98 10/14/19 12:00 Intake & Output 10/13/19 10/14/19 10/14/19 18:59 06:59 18:59 Intake Total 3697 489 7292 Output Total 430 270 0 Balance 570 -50 1250 Weight 96.3 kg Intake: IV 600 100 650 ACETAMINOPHEN IV (For NPO 100 ) 1,000 mg In Empty Bag 1 bag @ 400 mls/hr IVPB ONCE ONE Rx#:[id number] Ampicillin-Sulbactam 3 gm 100 In Sodium Chloride 0.9% 100 ml @ 200 mls/hr IVPB Q12H [facility] Rx#:[id number] Ampicillin-Sulbactam 3 gm 100 In Sodium Chloride 0.9% 100 ml @ 200 mls/hr IVPB Q6HR [facility] Rx#:[id number] Sodium Chloride 0.9% 1, 550 000 ml @ 50 mls/hr IV . Q20H [facility] Rx#:[id number] ceFAZolin 2 gm In Sodium 0 0 Chloride 0.9% 50 ml @ 100 mls/hr IVPB ONCE ONE Rx# :[id number] Intake, IV Titration 150 Amount Sodium Chloride 0.9% 1, 150 000 ml @ 50 mls/hr IV . Q20H [facility] Rx#:[id number] Oral 250 120 600 Output: Urine 430 270 0 Other: Voiding Method Indwelling Catheter Indwelling Catheter # Voids 1 ABP, PAP, CO, CI - Last Documented Arterial Blood Pressure 130/42 Pulmonary Artery Pressure 46/22 Cardiac Output 4.6 Cardiac Index 2.6 - Labs CBC & Chem 7: 10/14/19 04:27 10/14/19 04:27 Labs: Abnormal Lab Results - Last 24 Hours (Table) 10/13/19 10/13/19 10/14/19 Range/Units 21:00 23:39 04:27 WBC 11.0 H (3.8-10.6) k/uL RBC 2.56 L (3.80-5.40) m/uL Hgb 7.1 L (11.4-16.0) gm/dL Hct 23.7 L (34.0-46.0) % MCHC 29.9 L (31.0-37.0) g/dL RDW 19.1 H (11.5-15.5) % Chloride (98-107) mmol/L Carbon Dioxide (22-30) mmol/L BUN (7-17) mg/dL Creatinine (0.52-1.04) mg/dL Glucose (74-99) mg/dL POC Glucose (mg/dL) 64 L 102 H (75-99) mg/dL C-Reactive Protein (<10.0) mg/L 10/14/19 10/14/19 10/14/19 Range/Units 04:27 06:12 12:09 WBC (3.8-10.6) k/uL RBC (3.80-5.40) m/uL Hgb (11.4-16.0) gm/dL Hct (34.0-46.0) % MCHC (31.0-37.0) g/dL RDW (11.5-15.5) % Chloride 111 H (98-107) mmol/L Carbon Dioxide 21 L (22-30) mmol/L BUN 51 H (7-17) mg/dL Creatinine 2.02 H (0.52-1.04) mg/dL Glucose 69 L (74-99) mg/dL POC Glucose (mg/dL) 104 H 193 H (75-99) mg/dL C-Reactive Protein 72.0 H (<10.0) mg/L Microbiology - Last 24 Hours (Table) 10/10/19 09:31 Blood Culture - Preliminary Blood No Growth after 96 hours 10/10/19 09:45 Blood Culture - Preliminary Blood No Growth after 96 hours
--- NOTE | 2019-10-14 15:01 | P.PN ---
Subjective Progress Note Date: 10/14/19 This is a 68-year-old female with history of single-vessel coronary artery disease and mitral regurgitation, status post bypass surgery and mitral valve repair. Patient also has underlying atrial fibrillation with left bundle-branch block pattern. Patient developed bradycardia after she was treated with IV amiodarone. Patient is off amiodarone at this time. She is a small dose of beta anaid. Her heart rate is controlled without any significant bradyarrhythmias. Patient is sitting up in the chair and seems to be stable. Complain some mild chest pain but no shortness of breath. Lungs show some diminished breath sounds at bases and few rhonchi. Heart is irregular. Overall patient's critical status seemed to be stable. We'll continue current medical therapy. Increase activity and possible transfer to telemetry unit. Continue monitoring for any significant bradyarrhythmias. 10/08/2019: This patient seemed to be much stable. Patient is back in sinus rhythm. Denies any significant chest pain or shortness of breath. Tolerating activity. No other arrhythmias. She is only on beta anaid. Lungs sound clear. Heart is regular. Patient urine output is good with a negative balance of more than a liter. Patient could be transferred to telemetry unit. Hopefully discharge within next 24-48 hours 10/09/2019:his 68-year-old female is status post bypass surgery and mitral valve repair. Seemed to be feeling better. Complains of mild soreness in the chest from her incisions. Denies any significant shortness of breath. Continues to use temporary pacemaker. She is scheduled to have AICD and by ventricle pacemaker tomorrow. Patient doesn't have underlying left bundle-branch block. All LV function is impaired. Otherwise, systemic clinically stable. Continue current medical therapy. He had 10/10/2019: This patient was scheduled to have AICD with biventricular pace maker. However, patient developed signs of sepsis with white count elevation. The procedure was canceled for today. Patient is being treated with antibiotics. Patient is still in sinus rhythm with intermittent atrial fibrillation. With the evidence of sinus pauses and Mobitz type I block. We'll continue to monitor her closely. Patient still has a pacemaker wires. If she needs to wait for a long time, patient may need external temporary pacemaker. 10/11/2019: This patient continues to have white count elevation. No fever. No definite source of infection. Chest x-ray doesn't show any evidence of pneumonia. Patient continues to have bradycardia and using pacemaker intermittently. Patient is waiting to have AICD biventricular a speckled placement by Dr. kendall. Waiting for the reports of the blood cultures. Meanwhile, continue current medical therapy. Patient is also receiving blood transfusion for anemia. 10/12/2019: This patient seemed to be relatively stable. Denies any chest pain or shortness of breath, mostly maintaining sinus rhythm. Still has white count elevation. She is being treated for oral thrush. Discussed with infectious disease specialist. He thinks there is no evidence of sepsis. May proceed with ICD with biventricular pacemaker implantation. Will discuss with 10/13/2019: This patient continued to be stable. Hemoglobin is about 7.2. White count is coming down. No fever. ID specialist thinks that patient could go to the pacemaker insertion. I conveyed the message to Dr. Kendall. Continue current medical therapy. Dr. Kendall. We'll decide about ICD. Increase activity as tolerated. 10/14/2019: Patient is stable. Had ICD with biventricular pacemaker implantation yesterday. Tolerated the procedure well. The site looks good. Patient's hemoglobin is slightly lower. Creatinine is slightly high at. Patient is otherwise, denies any ischemic chest pain or shortness of breath. Patient is having some difficulty voiding. Neurology is following. Continue current medical therapy Objective - Vital Signs Vital signs: Vital Signs Temp 98.1 F 10/14/19 12:00 Pulse 55 L 10/14/19 14:00 Resp 12 10/14/19 14:00 BP 129/61 10/14/19 14:00 Pulse Ox 98 10/14/19 12:00 Intake & Output 10/13/19 10/14/19 10/14/19 18:59 06:59 18:59 Intake Total 8360 856 9351 Output Total 430 270 0 Balance 570 -50 1250 Weight 96.3 kg Intake: IV 600 100 650 ACETAMINOPHEN IV (For NPO 100 ) 1,000 mg In Empty Bag 1 bag @ 400 mls/hr IVPB ONCE ONE Rx#:[id number] Ampicillin-Sulbactam 3 gm 100 In Sodium Chloride 0.9% 100 ml @ 200 mls/hr IVPB Q12H [facility] Rx#:[id number] Ampicillin-Sulbactam 3 gm 100 In Sodium Chloride 0.9% 100 ml @ 200 mls/hr IVPB Q6HR [facility] Rx#:[id number] Sodium Chloride 0.9% 1, 550 000 ml @ 50 mls/hr IV . Q20H [facility] Rx#:[id number] ceFAZolin 2 gm In Sodium 0 0 Chloride 0.9% 50 ml @ 100 mls/hr IVPB ONCE ONE Rx# :[id number] Intake, IV Titration 150 Amount Sodium Chloride 0.9% 1, 150 000 ml @ 50 mls/hr IV . Q20H [facility] Rx#:[id number] Oral 250 120 600 Output: Urine 430 270 0 Other: Voiding Method Indwelling Catheter Indwelling Catheter # Voids 1 # Bowel Movements 1 ABP, PAP, CO, CI - Last Documented Arterial Blood Pressure 130/42 Pulmonary Artery Pressure 46/22 Cardiac Output 4.6 Cardiac Index 2.6 - Exam GENERAL EXAM: Patient is alert and oriented and doesn't appear to be in any acute distress HEENT: Normocephalic. Normal reaction of pupils, equal size, normal range of extraocular motion. No erythema or exudates in the throat. NECK: No masses, no nuchal rigidity. CHEST: No chest wall deformity. LUNGS: Diminished breath sounds at bases HEART: S1 and S2 normal. Regular rhythm ABDOMEN: No hepatosplenomegaly, normal bowel sounds, no guarding or rigidity. SKIN: No rashes CENTRAL NERVOUS SYSTEM: No focal deficits. EXTREMITIES: No cyanosis, clubbing or edema. - Labs CBC & Chem 7: 10/14/19 04:27 10/14/19 04:27 Labs: Abnormal Lab Results - Last 24 Hours (Table) 10/13/19 10/13/19 10/14/19 Range/Units 21:00 23:39 04:27 WBC 11.0 H (3.8-10.6) k/uL RBC 2.56 L (3.80-5.40) m/uL Hgb 7.1 L (11.4-16.0) gm/dL Hct 23.7 L (34.0-46.0) % MCHC 29.9 L (31.0-37.0) g/dL RDW 19.1 H (11.5-15.5) % Chloride (98-107) mmol/L Carbon Dioxide (22-30) mmol/L BUN (7-17) mg/dL Creatinine (0.52-1.04) mg/dL Glucose (74-99) mg/dL POC Glucose (mg/dL) 64 L 102 H (75-99) mg/dL C-Reactive Protein (<10.0) mg/L 10/14/19 10/14/19 10/14/19 Range/Units 04:27 06:12 12:09 WBC (3.8-10.6) k/uL RBC (3.80-5.40) m/uL Hgb (11.4-16.0) gm/dL Hct (34.0-46.0) % MCHC (31.0-37.0) g/dL RDW (11.5-15.5) % Chloride 111 H (98-107) mmol/L Carbon Dioxide 21 L (22-30) mmol/L BUN 51 H (7-17) mg/dL Creatinine 2.02 H (0.52-1.04) mg/dL Glucose 69 L (74-99) mg/dL POC Glucose (mg/dL) 104 H 193 H (75-99) mg/dL C-Reactive Protein 72.0 H (<10.0) mg/L Microbiology - Last 24 Hours (Table) 10/10/19 09:31 Blood Culture - Preliminary Blood No Growth after 96 hours 10/10/19 09:45 Blood Culture - Preliminary Blood No Growth after 96 hours Assessment and Plan (1) Status post aorto-coronary artery bypass graft Current Visit: Yes Status: Acute Code(s): Z95.1 - PRESENCE OF AORTOCORONARY BYPASS GRAFT SNOMED Code(s): 120348252 (2) Status post mitral valve repair Current Visit: Yes Status: Acute Code(s): Z98.890 - OTHER SPECIFIED POSTPROCEDURAL STATES SNOMED Code(s): 180463362 (3) Left bundle branch block Current Visit: Yes Status: Acute Code(s): I44.7 - LEFT BUNDLE-BRANCH BLOCK, UNSPECIFIED SNOMED Code(s): 33974013 (4) Atrial fibrillation Current Visit: Yes Status: Acute Code(s): I48.91 - UNSPECIFIED ATRIAL FIBRILLATION SNOMED Code(s): 69425059 (5) Bradycardia Current Visit: Yes Status: Acute Code(s): R00.1 - BRADYCARDIA, UNSPECIFIED SNOMED Code(s): 04494742 Plan: Continue current medical therapy. Increase activity. Follow BMP. The patient may need rehabilitation
--- NOTE | 2019-10-14 16:25 | PN ---
PROGRESS NOTE DATE OF SERVICE: 10/14/2019 REASON FOR FOLLOWUP: Leukocytosis. INTERVAL HISTORY: The patient is currently afebrile. The patient is breathing comfortably. The patient denies having any chest pain or shortness of breath or cough. Patient is status post biventricular ICD placement yesterday. Patient tolerated the procedure. No vomiting or any diarrhea. PHYSICAL EXAMINATION: Blood pressure 129/61, pulse 65, temperature 98.1. She is 98% on 2 L nasal cannula. General description is an elderly female up in the chair in no distress. RESPIRATORY SYSTEM: Unlabored breathing with decreased breath sounds at the base. No wheeze. HEART: S1, S2. Regular rate and rhythm. ABDOMEN: Soft. No tenderness. LABS: Hemoglobin 7.9, white count 11,000, BUN of 51, creatinine 2.02. DIAGNOSTIC IMPRESSION AND PLAN: 1. Patient with leukocytosis which is multifactorial in this patient who did have significant constipation, possible abdominal source. Overall improvement with Unasyn; to continue, finishing therapy with oral Augmentin. 2. Oral thrush. Continue with nystatin swish and swallow for about a week. MMODL / IJN: [id number] /
[2019-10-14 17:27] LABS: Glucose,Whole Blood 130 mg/dL (75-99)
[2019-10-14 19:39] LABS: Appearance,Urine Clear (Clear); Bacteria,Urine Rare /hpf; Bilirubin,Urine Negative (Negative); Blood,Urine Negative (Negative); Color,Urine Yellow; Glucose,Urine (UA) Negative (Negative); Ketones,Urine Trace (Negative); Leukocyte Esterase,Urine Trace (Negative); Mucus,Urine Rare /hpf; Nitrite,Urine Negative (Negative); Protein,Urine Negative (Negative); RBC,Urine 1 /hpf (0-5); Specific Gravity,Urine 1.022 (1.001-1.035); Squamous Epithelial Cell,Urine 1 /hpf (0-4); Urobilinogen,Urine <2.0 mg/dL (<2.0); WBC,Urine 5 /hpf (0-5)
[2019-10-14 20:05] LABS: Glucose,Whole Blood 78 mg/dL (75-99)
[2019-10-14] MEDS: SENNOSIDES-DOCUSATE SODIUM 1 EACH TAB PO SCH (20:51)
[2019-10-15 06:21] LABS: Anisocytosis Slight; HCT 23.3 % (34.0-46.0); HGB 7.1 gm/dL (11.4-16.0); Hypochromasia Moderate; MCH 28.3 pg (25.0-35.0); MCHC 30.5 g/dL (31.0-37.0); MCV 92.9 fL (80.0-100.0); Mean Platelet Volume 7.2; Platelet Count 340 k/uL (150-450); RBC 2.51 m/uL (3.80-5.40); RDW 18.8 % (11.5-15.5); WBC 12.4 k/uL (3.8-10.6)
[2019-10-15 06:29] LABS: Calcium 8.8 mg/dL (8.4-10.2); Potassium 4.3 mmol/L (3.5-5.1)
[2019-10-15 06:45] LABS: Glucose,Whole Blood 69 mg/dL (75-99)
[2019-10-15] MEDS: INSULIN ASPART (NovoLOG) 100 UNIT/ML VIAL SQ SCH ×2 (06:54)
[2019-10-15] MEDS: PANTOPRAZOLE 40 MG TABLET PO SCH (07:01)
[2019-10-15] MEDS: LEVOTHYROXINE 75 MCG TAB PO SCH (07:01)
[2019-10-15 07:19] LABS: Glucose,Whole Blood 73 mg/dL (75-99)
[2019-10-15] MEDS: IPRATROPIUM-ALBUTEROL 3 ML NEB INHALATION SCH ×2 (08:17→11:54)
[2019-10-15 08:18] LABS: Glucose,Whole Blood 90 mg/dL (75-99)
[2019-10-15] MEDS: INSULIN DETEMIR (LEVEMIR) 100 UNIT/ML SYR SQ SCH (08:30)
[2019-10-15] MEDS: HEPARIN SODIUM,PORCINE 5,000 UNIT/ML 1 ML VIAL SQ SCH (08:49)
[2019-10-15] MEDS: ASPIRIN 325 MG TAB PO SCH (08:49)
[2019-10-15] MEDS: CITALOPRAM HYDROBROMIDE 20 MG TAB PO SCH (08:50)
[2019-10-15] MEDS: CLOPIDOGREL 75 MG TAB PO SCH (08:50)
[2019-10-15] MEDS: AMIODARONE 200 MG TAB PO SCH (08:50)
[2019-10-15] MEDS: ATORVASTATIN 40 MG TAB PO SCH (08:50)
[2019-10-15] MEDS ORDERED: METOPROLOL SUCCINATE (ER) 25 MG TAB.ER.24H PO SCH (09:00)
[2019-10-15] MEDS ORDERED: allopurinoL 100 MG TAB PO SCH (09:00)
[2019-10-15] MEDS: polyethylene glycoL 3350 17 GM POWD.PACK PO SCH (09:42)
[2019-10-15] MEDS: SPIRONOLACTONE 25 MG TAB PO SCH (09:42)
[2019-10-15] MEDS: NYSTATIN 100,000 UNIT/ML SUSP 500,000 UNIT/5 ML CUP PO SCH (09:42)
--- NOTE | 2019-10-15 10:16 | P.DS ---
Providers Date of admission: 10/03/19 05:49 Expected date of discharge: 10/15/19 Attending physician: Madai Sawant Consults: 10/03/19 15:05 Consult Physician Routine Consulting Provider: Abimbola Chaudhry Consult Reason/Comments: Process Equipment Operator Consult: post cardiac surgery Do you want consulting provider notified?: Yes Consult Physician Routine Consulting Provider: Fausto Nagy Consult Reason/Comments: Manager Bakery Consult: post cardiac surgery Do you want consulting provider notified?: Yes 10/03/19 16:03 Consult Physician Routine Consulting Provider: Inna Neumann Consult Reason/Comments: medical managment; [facility] patient Do you want consulting provider notified?: Yes 10/06/19 09:11 Consult Physician Routine Consulting Provider: Hamlet Kendall Consult Reason/Comments: 3rd degree block after open heart Do you want consulting provider notified?: Yes 10/06/19 10:44 Consult Physician Routine Consulting Provider: Jonnathan Walsh Consult Reason/Comments: IPR Do you want consulting provider notified?: Yes 10/10/19 09:44 Consult Physician Routine Consulting Provider: Curt Ocasio Consult Reason/Comments: elevated WBC Do you want consulting provider notified?: Yes 10/11/19 07:26 Consult Physician Routine Consulting Provider: Earl Miller Consult Reason/Comments: urine retention Do you want consulting provider notified?: Yes 10/11/19 17:21 Consult Physician Urgent Consulting Provider: Ajay Fernandes Consult Reason/Comments: bowel impaction Do you want consulting provider notified?: Yes Primary care physician: Eduin Moore Hospital Course: FINAL DIAGNOSIS: 1. Single-vessel coronary artery disease 2. Severe functional mitral valve regurgitation with mild tricuspid valve regurgitation and chronic systolic heart failure 3. History of hypertension 4. History of coronary artery disease with previous stent placement to the proximal LAD in 2017 5. History of hyperlipidemia 6. Poorly controlled insulin-dependent diabetes mellitus with preoperative hemoglobin A1c 10.7% 7. Morbid obesity 8. Stage III chronic kidney disease with baseline creatinine 1.5 9. Obstructive sleep apnea 10. Pulmonary hypertension 11. Preoperative urinary tract infection with Klebsiella pneumoniae, treated 12. Postoperative acute blood loss anemia 13. Postoperative paroxysmal controlled atrial fibrillation as well as third-degree heart block 14. Postoperative leukocytosis without fever or obvious signs of infection 15. Postoperative constipation 16. Postoperative acute urinary retention PRINCIPAL PROCEDURE: 1. Single coronary artery bypass grafting using the left internal mammary artery to the left anterior descending coronary artery 2. Mitral valve repair using a reduction annuloplasty with a 28 mm Physio-2 ring 3. Exclusion of the left atrial appendage using a 45 mm AtriClip 4. Intraoperative graft flow measurements using the Medistim system 5. Intraoperative epi-aortic scanning and transesophageal echocardiogram 6. Placement of [employer] [place] permanent pacemaker with ICD HISTORY OF PRESENT ILLNESS: This is a 68-year-old female who follows on an outpatient basis Dr. Moore for primary care and Dr. Nagy for cardiology. She presented to [facility] on 11/26/2018 with complaints of chest pain, she received cardiac workup including transthoracic echocardiogram demonstrating moderately impaired left ventricular systolic function with ejection fraction 35-40%, mild aortic regurgitation, mild mitral annular calcification with moderate to severe mitral regurgitation, and moderate tricuspid regurgitation with severe pulmonary hypertension. She was found to be negative for myocardial infarction and was released with follow-up with cardiology. She was recommended to undergo outpatient heart catheterization and transesophageal echocardiogram by Dr. Nagy. Heart catheterization demonstrated proximal LAD stenosis of 70%. Transesophageal echocardiogram confirmed left ventricular systolic dysfunction with ejection fraction 35-40%, left atrial enlargement, severe mitral regurgitation with a dilated annulus and poor coaptation of the mitral leaflets, and moderate to severe tricuspid regurgitation. Consultation was placed to Dr. Sawant from cardiothoracic surgery. She was recommended to undergo coronary artery bypass surgery as well as mitral valve repair. The usual perioperative course was discussed in detail with the patient and her family, all risks and benefits were explained, all questions were answered, and consent was obtained to proceed with surgery. The patient was discharged to home on maximal medical therapy to return as an outpatient for surgery after obtaining dental clearance and addressing her blood sugar control. It did take quite some time to receive dental clearance. HOSPITAL COURSE: The patient was brought to the hospital on 10/03/2019, taken to the preoperative area, prepared in the usual fashion, and subsequently taken to the operating room where Dr. Sawant performed 1 vessel CABG with mitral valve repair. Upon completion of surgery the patient was transferred to the cardiovascular intensive care unit where she was recovered, monitored hemodyn amically, and where she progressed to cardiac rehabilitation phase 1. She was extubated, all lines, tubes, and drips were discontinued when appropriate. The patient did have third-degree heart block after surgery and eventually developed controlled atrial fibrillation with bradycardia. In addition, she developed leukocytosis, was very constipated, and had acute urinary retention. She was seen by infectious disease as well as urology. The source of her leukocytosis was felt to be multifactorial, her white blood cell count did trend down after being started on IV Unasyn, and her Hinkle was removed and replaced several times as the patient was unable to void without significant residual. She was eventually taken for permanent pacemaker placement with ICD, Hinkle catheter to be left in per urology. Transfer orders were placed for 3 S. cardiac stepdown unit, however there was no bed availability and the patient remained on ICU as a stepdown patient until discharge. Her oxygen was titrated down, she continued to work with physical and occupational therapy, she was tolerating oral diet, her pain was controlled, and she was ready to be discharged to [facility] inpatient rehab on postoperative day #12 with consultation to cardiology, infectious disease, and urology to follow. She received written and verbal instruction regarding her medications, activity restrictions, signs and symptoms requiring physician notification, and follow-up appointments. COMPLICATIONS: The patient experienced postoperative acute blood loss anemia with transfusion of 1 unit packed red blood cells, paroxysmal controlled atrial fibrillation as well as third-degree heart block with placement of permanent pacemaker, leukocytosis, constipation, acute urinary retention with replacement of Hinkle catheter Patient Condition at Discharge: Stable Plan - Discharge Summary Discharge Rx Participant: Yes New Discharge Prescriptions: New Aspirin 325 mg PO DAILY tab Amoxicillin/Potassium Clav [Augmentin 500-125 Tablet] 1 tab PO Q12HR #14 tab Amiodarone [Cordarone] 400 mg PO DAILY 30 Days tab Losartan [Cozaar] 25 mg PO DAILY@1200 tab Bisacodyl [Dulcolax] 10 mg RECTAL DAILY PRN supp PRN Reason: Constipation Ipratropium-Albuterol Nebulize [Duoneb 0.5 mg-3 mg/3 ml Soln] 3 ml INHALATION RT-QID ml Ipratropium-Albuterol Nebulize [Duoneb 0.5 mg-3 mg/3 ml Soln] 3 ml INHALATION RT-Q2H PRN ml PRN Reason: Shortness Of Breath Or Wheezing Heparin Sodium,Porcine [Heparin Sodium] 5,000 unit SQ Q8HR vial Insulin Detemir (Levemir) [Levemir] 15 unit SQ HS syr Atorvastatin [Lipitor] 40 mg PO DAILY tab Polyethylene Glycol 3350 [Miralax] 17 gm PO DAILY powd.pack Nystatin 100,000 Unit/ml Susp [Mycostatin Oral Susp] 500,000 unit PO QID 7 Days ml INSULIN ASPART (NovoLOG) [NovoLOG (formulary)] 0 unit SQ ACHS vial Clopidogrel [Plavix] 75 mg PO DAILY tab Sennosides-Docusate Sodium [Senokot-S] 2 each PO HS tab Metoprolol Succinate (ER) [Toprol XL] 25 mg PO DAILY tab.er.24h Acetaminophen Tab [Tylenol] 1,000 mg PO Q6HR PRN tab PRN Reason: Fever And/ Or Pain Continue Multivitamins, Thera [Multivitamin (formulary)] 1 tab PO DAILY Levothyroxine Sodium [Synthroid] 75 mcg PO DAILY Citalopram Hydrobromide [CeleXA] 20 mg PO DAILY tab Pantoprazole [Protonix] 40 mg PO DAILY Allopurinol [Zyloprim] 300 mg PO DAILY Spironolactone [Aldactone] 25 mg PO DAILY #30 tablet Discontinued Aspirin 81 mg PO DAILY #1 chewable Atorvastatin [Lipitor] 80 mg PO HS Isosorbide Mononitrate ER [Imdur] 30 mg PO DAILY Meclizine [Antivert] 12.5 mg PO BID PRN PRN Reason: Vertigo Carvedilol [Coreg] 6.25 mg PO BID Nitroglycerin Sl Tabs [Nitrostat] 0.4 mg SUBLINGUAL Q5M PRN PRN Reason: Chest Pain INSULIN LISPRO (HumaLOG) [humaLOG] 6 units SQ BID Magnesium Oxide [Mag-Ox] 400 mg PO DAILY Ferrous Sulfate [Iron (65 MG Elemental)] 325 mg PO BID Furosemide [Lasix] 60 mg PO DAILY #60 tablet amLODIPine [Norvasc] 10 mg PO DAILY Metolazone [Zaroxolyn] 2.5 mg PO DAILY Insulin Detemir (Levemir) [Levemir] 22 unit SQ BID Discharge Medication List Multivitamins, Thera [Multivitamin (formulary)] 1 tab PO DAILY 07/02/15 [History] Levothyroxine Sodium [Synthroid] 75 mcg PO DAILY 05/01/16 [History] Citalopram Hydrobromide [CeleXA] 20 mg PO DAILY tab 08/14/16 [Rx] Pantoprazole [Protonix] 40 mg PO DAILY 07/25/17 [History] Allopurinol [Zyloprim] 300 mg PO DAILY 11/26/18 [History] Spironolactone [Aldactone] 25 mg PO DAILY #30 tablet 07/01/19 [Rx] Acetaminophen Tab [Tylenol] 1,000 mg PO Q6HR PRN tab 10/15/19 [Rx] Amiodarone [Cordarone] 400 mg PO DAILY 30 Days tab 10/15/19 [Rx] Amoxicillin/Potassium Clav [Augmentin 500-125 Tablet] 1 tab PO Q12HR #14 tab 10/15/19 [Rx] Aspirin 325 mg PO DAILY tab 10/15/19 [Rx] Atorvastatin [Lipitor] 40 mg PO DAILY tab 10/15/19 [Rx] Bisacodyl [Dulcolax] 10 mg RECTAL DAILY PRN supp 10/15/19 [Rx] Clopidogrel [Plavix] 75 mg PO DAILY tab 10/15/19 [Rx] Heparin Sodium,Porcine [Heparin Sodium] 5,000 unit SQ Q8HR vial 10/15/19 [Rx] INSULIN ASPART (NovoLOG) [NovoLOG (formulary)] 0 unit SQ ACHS vial 10/15/19 [Rx] Insulin Detemir (Levemir) [Levemir] 15 unit SQ HS syr 10/15/19 [Rx] Ipratropium-Albuterol Nebulize [Duoneb 0.5 mg-3 mg/3 ml Soln] 3 ml INHALATION RT-Q2H PRN ml 10/15/19 [Rx] Ipratropium-Albuterol Nebulize [Duoneb 0.5 mg-3 mg/3 ml Soln] 3 ml INHALATION RT-QID ml 10/15/19 [Rx] Losartan [Cozaar] 25 mg PO DAILY@1200 tab 10/15/19 [Rx] Metoprolol Succinate (ER) [Toprol XL] 25 mg PO DAILY tab.er.24h 10/15/19 [Rx] Nystatin 100,000 Unit/ml Susp [Mycostatin Oral Susp] 500,000 unit PO QID 7 Days ml 10/15/19 [Rx] Polyethylene Glycol 3350 [Miralax] 17 gm PO DAILY powd.pack 10/15/19 [Rx] Sennosides-Docusate Sodium [Senokot-S] 2 each PO HS tab 10/15/19 [Rx] Follow up Appointment(s)/Referral(s): Abimbola Chaudhry MD [STAFF PHYSICIAN] - 1 Week (Please call for appointment upon discharge from [facility]) [facility],Cardiac [NON-STAFF] - 4 Weeks (You will receive a phone call 4- 6 weeks after surgery for evaluation for cardiac rehab) Madai Sawant MD [STAFF PHYSICIAN] - 4 Weeks (Office will call patient with appointment date/time) [facility], [NON-STAFF] - 1-2 Days Eduin Moore MD [Primary Care Provider] - 1 Week (sees Jeanne CHOWDARY; Please call for appointment upon discharge from [facility] ) Fausto Nagy MD [STAFF PHYSICIAN] - 1 Week (Please call for appointment upon discharge from [facility]; Device clinic follow-up in one week post discharge Stop amiodarone after 4 weeks) Ambulatory/Diagnostic Orders: Complete Blood Count w/diff [LAB.AMB] Time Frame: 3 Days, Location: None Selected Comprehensive Metabolic Panel [LAB.AMB] Time Frame: 3 Days, Location: None Selected Activity/Diet/Wound Care/Special Instructions: CONSULTS AT [facility] INPATIENT REHAB: 1. Dr. Nagy for cardiology 2. Dr. Miller for urology 3. Dr. Ocasio for infectious disease ABSOLUTELY NO NARCOTICS TO BE GIVEN TO PATIENT UNLESS CLEARED BY CARDIAC SURGERY (Patient has received no narcotics since 10/04/19) LABS TO BE DRAWN IN 3 DAYS, THEN PER PROTOCOL DISCHARGE INSTRUCTIONS: 1. No driving for 4 weeks, or until physician gives their ok. 2. The patient should sleep in their own bed, no medical bed needed. 3. Stairs are not an issue. If the bedroom is upstairs, it is advised that the patient go up at night and down in the morning for the first week. Go slowly, using handrail and take 1 step at a time. 4. KARTHIKEYAN hose are to be worn for 30 days or until physician discontinues. 5. Heart hugger is to be worn 100% of the time until physician discontinues.(except when showering) 6. No lifting, pushing, or pulling more than 10 pounds for 12 weeks. The physician will advise of any restriction changes. 7. The patient is expected to continue the prescribed walking program. 8. Continue pain control per as needed orders. 9. Continue with incentive spirometry and splinting/heart hugger until otherwise directed by the physician. 10. Must shower daily using liquid antibacterial soap and a separate white washcloth for each individual incision. 11. Routine sternal incision care. No powders, lotions, ointments on incisions. No dressings are necessary on incisions unless they are draining. Dermabond tape is to remain on sternal incision until surgeon follow-up. 12. Please call surgeon/SECURITY INVESTIGATOR for temp greater than 101 F or purulent drainage from incisions. 13. A Red armband has been placed on the patient. It should be worn for 30 days post surgery and will be removed by the cardiac surgeons. If an ER visit is necessary, please make sure the number on the Red armband is called. 14. You have been referred to and are expected to begin Cardiac Rehab in approximately 4-6 weeks. UPON DISCHARGE FROM [facility]: HOME HEALTH SERVICES TO PROVIDE: RN SKILLED HOME CARE SERVICES FOR POST-OP SURGICAL PATIENTS WITH THE FOLLOWING: Coronary Artery Bypass Surgery (CABG), Mitral Valve Replacement/Repair ( MVR), Aortic Valve Replacement/Repair (AVR) RN TO CONTINUE EDUCATION FROM ``ROAD TO A HEALTH HEART PATIENT EDUCATION MANUAL (GIVEN TO PATIENT IN THE HOSPITAL) MEDICATION RECONCILIATION WITH EDUCATION NEEDED ON FIRST HOME VISIT EMPHASIZE IMPORTANCE OF WEARING BREAST SUPPORT/HEART HUGGER ENCOURAGE USE OF INCENTIVE SPIROMETER 10 X EVERY HOUR WHILE AWAKE ENCOURAGE UTILIZATION OF LOWER EXTREMITY COMPRESSION STOCKINGS/KARTHIKEYAN HOSE and ELEVATE LEGS ABOVE LEVEL OF HEART WHILE AT REST. ENCOURAGE AMBULATION 3-5x/day INCREASING TOLERATES, WHILE AVOIDING EXTREMES IN TEMPERATURE FREQUENCY: RN TO OPEN THE PATIENT WITHIN 24 HOURS OF DISCHARGE FROM INPATIENT REHAB WITH [place]HE[place] [facility] [place] VISIT 2-3 X A WEEK FOR 4 WEEKS ESTABLISHED BY PATIENT NEEDS. LABORATORY: CBC, CMP TO BE DRAWN ON THE THIRD DAY HOME, (RAN STAT) FAX RESULTS TO [phone]. TELEHEALTH PARAMETERS: WEIGHT: NOTIFY MD OF WEIGHT GAIN OF 2 LBS IN 24 HOURS OR 5 LBS IN ONE WEEK HR: NOTIFY MD OF HR <55 BPM OR HR>100 BPM BP: NOTIFY MD IF BP <90/55 OR BP>140/100 O2 SAT: NOTIFY MD IF PO2<93% ON ROOM AIR SEND TELEHEALTH REPORT TO CLEAN UP SUPERVISOR AND CARDIOVASCULAR SURGEON THE FIRST WEEK OF CARE AND THEN BI-WEEKLY. PLEASE ADDITIONALLY COMMUNICATE ANY ABNORMALS AND NEW FINDINGS TO THE SURGEONS OFFICE. For any questions or concerns please call computer methods analyst Rachel @ or Don @ PATIENT EDUCATION MATERIAL Instructions following a heart rhythm device implant. 1. Keep dressing DRY for 5 DAYS. You may cover the area with Saran or Cling Wrap, prior to a shower. 2. The dressing will be removed in the Device Clinic at [facility]. Absorbable sutures were used to close the wound. 3. Avoid raising the left arm above the shoulder level. 4 week restriction 4. Avoid arm movements, like backscratching, rubbing the head, or pulling on a cord. 4 weeks restriction 5. Gentle range of motion movements of the shoulder, closest to the incision should be performed to avoid a frozen shoulder. (Pendulum exercises of the shoulder) 6. The opposite arm may be used freely. 7. Avoid driving for 7 days. 8. Avoid activities such as golfing, swimming, weed whacking, lifting more than 10 pounds weight, bowling, gymnastics and weight training/lifting. (6 weeks restriction) 9. Activities such as wood chopping with an axe, pull-ups in the gymnasium, power lifting, arc-welding, being close to home induction cooktops will always be a problem. 10. Arm sling is only a reminder not to raise the arm above the head. You do not need to keep the arm completely immobilized. Your free to move the arm and use it and for normal activities. In case of any problems, please call [facility] [place], @ [phone], Attention: Device Clinic Device clinic follow-up in 5 days Follow-up with primary hammer smith in 2 weeks Discharge Disposition: DC/TRNS INTERMEDIATE CARE FAC
--- NOTE | 2019-10-15 10:33 | P.PN ---
Subjective Progress Note Date: 10/15/19 Principal diagnosis: Status post CABG, mitral valve repair, postoperative day #8, status post AICD placement postoperative day #2 The patient is seen today 10/15/2019 in follow-up in the intensive care unit. She is currently sitting up in a chair at the bedside. She is postoperative day #11 status post 1 vessel bypass, mitral valve repair. She had also undergone a AICD placement and is postoperative day #2. She is awake and alert in no acute distress. Currently on room air with O2 saturation in the 90s. Blood and urine cultures revealed no growth. White count 12.4. Hemoglobin 7.1. Sodium 137. Potassium 4.3. Chloride 109. CO2 21. Creatinine 2.12. She is currently on Unasyn. Remains on bronchodilators. Amiodarone. The plan is to transfer to inpatient rehabilitation possibly later today. Objective - Vital Signs Vital signs: Vital Signs Temp 98.5 F 10/15/19 04:00 Pulse 66 10/15/19 08:30 Resp 13 10/15/19 08:00 BP 143/59 10/15/19 08:00 Pulse Ox 93 L 10/15/19 08:00 Intake & Output 10/14/19 10/15/19 10/15/19 18:59 06:59 18:59 Intake Total 1250 850 480 Output Total 350 850 225 Balance 900 0 255 Weight 95.1 kg Intake: IV 650 100 Ampicillin-Sulbactam 3 gm 100 100 In Sodium Chloride 0.9% 100 ml @ 200 mls/hr IVPB Q12H [facility] Rx#:[id number] Sodium Chloride 0.9% 1, 550 000 ml @ 50 mls/hr IV . Q20H [facility] Rx#:[id number] ceFAZolin 2 gm In Sodium 0 Chloride 0.9% 50 ml @ 100 mls/hr IVPB ONCE ONE Rx# :[id number] Oral 600 750 480 Output: Urine 0 850 225 Post Void Residual 350 Other: Voiding Method Toilet Indwelling Catheter Indwelling Catheter Bedside Commode # Voids 1 1 # Bowel Movements 1 2 ABP, PAP, CO, CI - Last Documented Arterial Blood Pressure 130/42 Pulmonary Artery Pressure 46/22 Cardiac Output 4.6 Cardiac Index 2.6 - Exam GENERAL EXAM: Alert, very pleasant, 68-year-old female, on room air, comfortable in no apparent distress. HEAD: Normocephalic/atraumatic. EYES: Normal reaction of pupils, equal size. Conjunctiva pink, sclera white. NOSE: Clear with pink turbinates. THROAT: No erythema or exudates. NECK: No masses, no JVD, no thyroid enlargement, no adenopathy. CHEST: No chest wall deformity. Symmetrical expansion. Midsternal incision, clean dry and intact, chest tube sites are clean dry and intact, left upper chest permanent pacemaker AICD incision is clean dry and intact LUNGS: Equal air entry with faint crackles in the posterior bases. CVS: Regular rate and rhythm, normal S1 and S2, no gallops, no murmurs, no rubs ABDOMEN: Soft, nontender. No hepatosplenomegaly, normal bowel sounds, no guarding or rigidity. EXTREMITIES: No clubbing, no edema, no cyanosis, 2+ pulses and upper and lower extremities. MUSCULOSKELETAL: Muscle strength and tone normal. SPINE: No scoliosis or deformity SKIN: No rashes CENTRAL NERVOUS SYSTEM: No focal deficits, tone is normal in all 4 extremities. PSYCHIATRIC: Alert and oriented -3. Appropriate affect. Intact judgment and insight. - Labs CBC & Chem 7: 10/15/19 05:27 10/15/19 05:27 Labs: Abnormal Lab Results - Last 24 Hours (Table) 10/14/19 10/14/19 10/14/19 Range/Units 12:09 17:25 19:05 WBC (3.8-10.6) k/uL RBC (3.80-5.40) m/uL Hgb (11.4-16.0) gm/dL Hct (34.0-46.0) % MCHC (31.0-37.0) g/dL RDW (11.5-15.5) % Chloride (98-107) mmol/L Carbon Dioxide (22-30) mmol/L BUN (7-17) mg/dL Creatinine (0.52-1.04) mg/dL Glucose (74-99) mg/dL POC Glucose (mg/dL) 193 H 130 H (75-99) mg/dL Urine Ketones Trace H (Negative) Ur Leukocyte Esterase Trace H (Negative) Urine Bacteria Rare H (None) /hpf Urine Mucus Rare H (None) /hpf 10/15/19 10/15/19 10/15/19 Range/Units 05:27 05:27 06:43 WBC 12.4 H (3.8-10.6) k/uL RBC 2.51 L (3.80-5.40) m/uL Hgb 7.1 L (11.4-16.0) gm/dL Hct 23.3 L (34.0-46.0) % MCHC 30.5 L (31.0-37.0) g/dL RDW 18.8 H (11.5-15.5) % Chloride 109 H (98-107) mmol/L Carbon Dioxide 21 L (22-30) mmol/L BUN 52 H (7-17) mg/dL Creatinine 2.12 H (0.52-1.04) mg/dL Glucose 58 L (74-99) mg/dL POC Glucose (mg/dL) 69 L (75-99) mg/dL Urine Ketones (Negative) Ur Leukocyte Esterase (Negative) Urine Bacteria (None) /hpf Urine Mucus (None) /hpf 10/15/19 Range/Units 06:59 WBC (3.8-10.6) k/uL RBC (3.80-5.40) m/uL Hgb (11.4-16.0) gm/dL Hct (34.0-46.0) % MCHC (31.0-37.0) g/dL RDW (11.5-15.5) % Chloride (98-107) mmol/L Carbon Dioxide (22-30) mmol/L BUN (7-17) mg/dL Creatinine (0.52-1.04) mg/dL Glucose (74-99) mg/dL POC Glucose (mg/dL) 73 L (75-99) mg/dL Urine Ketones (Negative) Ur Leukocyte Esterase (Negative) Urine Bacteria (None) /hpf Urine Mucus (None) /hpf Microbiology - Last 24 Hours (Table) 10/10/19 09:31 Blood Culture - Preliminary Blood No Growth after 96 hours 10/10/19 09:45 Blood Culture - Preliminary Blood No Growth after 96 hours Assessment and Plan Assessment: #1. Coronary artery disease, severe mitral regurgitation, status post 1 vessel bypass REYES to LAD, and mitral valve repair, left atrial appendage exclusion, postoperative day number 11 #2. Leukocytosis, unspecified, rule out infectious process, but cultures are pending, patient is afebrile, urinalysis without any sign of infection, chest x- ray showing cardiomegaly, possible left basilar atelectasis, right lung is clear. WBC 12.4 today. #3. Chronic congestive heart failure, systolic in nature #4. Post-op of cardiac arrhythmia, status post permanent pacemaker AICD placement, postoperative day #2 #5. Acute blood loss anemia, expected outcome of bypass and mitral valve repair surgery #6 Chronic kidney disease #7. Recent history of urinary tract infection, with urine culture positive for Klebsiella pneumonia treated with ciprofloxacin #8. Normal preop spirometry with FEV1 of 92% of predicted #9. History of diabetes mellitus, poorly controlled #10. Hypertension #11. Hyperlipidemia #12. Previous stenting of the LAD 2016 #13. Ischemic cardiomyopathy with LV function of 35-40% #14. Pulmonary hypertension likely related to valvular heart disease #15. Family history of hypertension and diabetes Plan: The patient was seen and evaluated by Dr. Gordon Lobo for transfer out of the ICU today Stable for transfer to inpatient rehab Continue to work with the incentive spirometer Continue bronchodilators We will continue to follow I, the cosigning physician, performed a history & physical examination of the patient. Lungs sounds with faint crackles in the posterior bases. Maintaining good O2 saturations in the 90s on room air. I discussed the assessment and plan of care with my nurse practitioner, Kaye Jaquez. I attest to the above note as d ictated by her.
[2019-10-15 12:16] VITALS: PULSE 60
[2019-10-15 12:41] VITALS: BP 152/63; RESP 20; TEMP 98.9
--- NOTE | 2019-10-15 13:26 | PN ---
PROGRESS NOTE 68-year-old lady that is admitted to hospital for bypass surgery and mitral valve repair, had a prolonged hospital course from confusion. This morning, she is feeling better. Has underlying atrial fibrillation. The patient underwent ICD with biventricular pacemaker and she is being discharged home today. On exam, comfortable at rest. Vital signs are stable. Chest exam reveals good air entry bilaterally. Heart exam reveals first and second heart sounds and a systolic murmur at the apex. Abdomen is soft. Exam of extremities reveals mild edema. Peripheral pulses are felt. Patient is currently on aspirin, Lipitor, Plavix, Cozaar, Toprol-XL, Aldactone, and DuoNeb. Labs show that the hemoglobin is 7.1, potassium is 4.3, BUN is 52, creatinine is 2.1. ASSESSMENT: 1. Coronary artery disease status post coronary artery bypass grafting. 2. Mitral regurgitation status post mitral valve repair, status post Bi-V AICD. PLAN: The patient is stable for discharge. Will follow up with me in a week's time. HIEU / SALMA: [id number] /
--- NOTE | 2019-10-15 14:15 | P.PN ---
Subjective 68 years old female with past medical history of coronary artery disease, heart failure status post stent placement, diabetes mellitus, GERD, hypertension, hyperlipidemia, sleep apnea on CPAP/BiPAP, hypothyroidism. She is a status post 1 vessel bypass surgery and today postop day #1. She also got extubated today and currently she is on nasal cannula at 4 L/m was saturating 95-98%, patient denies chest pain or dyspnea except as surgical site which is expected. Rest of Vitas looks stable. Labs reviewed showed mild leukocytosis of 12 K, INR is normal, sugar controlled, creatinine 1.9 (baseline 1.4-2.0) Chest x-ray: Improved radiation Patient is currently on aspirin, metoprolol, oral levothyroxine, Protonix 10/05/2019 Patient remains in the ICU with no chest pain or dyspnea. However today her blood pressure dropped with physical therapy session went down to 80/40, patient brought back on lying position in the chair, she was fully awake and oriented however she looked pale with no chest pain or dyspnea. Recheck blood pressure show improvement, please see records. Progressive vitals are stable. Sugar controlled 141-152 today her chest tube and swelling Came out 10/06/2019 Patient is awake and alert, looks tired but she denies chest pain or dyspnea and vitals are stable. Sugar controlled and WBC is trending down to 11.6 K. Creatinine down to 1.7. Patient was on insulin drip which could be stopped, patient is eating. Resume her Levemir 15 units twice a day (was 22 units at home) and 3 units with meals (was 6 units at home), keep insulin sliding scale. Cardiology team also following the case today. 10/07/2019 Patient is up in chair, no dizziness, blood pressure is a stable at 117/66. No postural symptoms. She was sitting and eating in bed with no difficulty. She still have some pain in the surgical site which is expected. Mild Leukocytosis of 12.4 K. Creatinine 1.8 him at baseline. Sugar control, continue with same regimen 10/08/19 Patient is in chair, no chest pain, no dizziness. Breathing quietly. Vitas looks stable and blood pressure 109/63, heart rate is 77 beats per minute which is sinus. She is eating well and tolerating that well however she has constipation and ask for some laxative WBC is 11.4 K,, creatinine at baseline 1.7 Dr. Coppola evaluated patient for possible inpatient rehab, patient agrees Patient may be considered for transfer to general medical floor 10/09/2019 Patient lying comfortable in bed, no chest pain or dyspnea, she is tolerating diet well. Vitals are stable. WBC is trending down to 13 K, hemoglobin 7.3, creatinine is improving to 1.6. Chest x-ray: subsegmental areas of consolidation by laboratory are stable, related to postoperative atelectasis Patient has been having periods of bradycardia with supervisor wound evaluated patient and found her with bradycardia, periods of A. fib and with left bundle branch block and prolonged NC interval, with planning for placement of AICD device on Thursday Patient remains in the ICU for now 10/10/2019 Patient will be going for permanent pacemaker and AICD placement today patient had any of of around 20%. Patient does have leukocytosis. Patient was a evaluated by infectious disease no fever at this time. Patient was started on antifungal medications by infectious disease 10/11/2019 Patient was having severe constipation and some additional risk and urine patient was started on lactulose and mineral oil enema 10/12/2019 Patient is cost patient resolved after manual disimpaction. Creatinine remained stable leukocytosis improving. 10/13/2019 No significant overnight events. Patient will undergo pacemaker placement his creatinine is bit worse. White blood cell count improved 10/14/2019 Patient has an AICD and pacemaker placed as today overall she is clinically doing well but has creatinine is slowly going up patient is low on losartan and Aldactone probably this can be held temporarily.. Patient is presently on Unasyn, and fundus were discontinued. 10/14/2019 Patient is clinically doing well is being discharged to inpatient rehabilitation I will follow her at inpatient rehabilitation. Constitutional: Denied any fatigue denied any fever. Cardio vascular: denied any chest pain, palpitations Gastrointestinal denied any nausea vomiting Pulmonary: Denied any shortness of breath cough Neurologic denied any new focal deficits All inpatient medications were reviewed and appropriate changes in these medications as dictated in the interval history and assessment and plan. Objective - Vital Signs Vital signs: Vital Signs Temp 98.9 F 10/15/19 12:00 Pulse 60 10/15/19 12:15 Resp 20 10/15/19 12:00 BP 152/63 10/15/19 12:00 Pulse Ox 96 10/15/19 12:00 Intake & Output 10/14/19 10/15/19 10/15/19 18:59 06:59 18:59 Intake Total 1250 850 480 Output Total 350 850 500 Balance 900 0 -20 Weight 95.1 kg Intake: IV 650 100 Ampicillin-Sulbactam 3 gm 100 100 In Sodium Chloride 0.9% 100 ml @ 200 mls/hr IVPB Q12H [facility] Rx#:[id number] Sodium Chloride 0.9% 1, 550 000 ml @ 50 mls/hr IV . Q20H [facility] Rx#:[id number] ceFAZolin 2 gm In Sodium 0 Chloride 0.9% 50 ml @ 100 mls/hr IVPB ONCE ONE Rx# :[id number] Oral 600 750 480 Output: Urine 0 850 500 Post Void Residual 350 Other: Voiding Method Toilet Indwelling Catheter Indwelling Catheter Bedside Commode # Voids 1 1 # Bowel Movements 1 2 ABP, PAP, CO, CI - Last Documented Arterial Blood Pressure 130/42 Pulmonary Artery Pressure 46/22 Cardiac Output 4.6 Cardiac Index 2.6 - Exam GENERAL: The patient is alert and oriented x3, not in any acute distress. Well developed, well nourished. HEENT: Pupils are round and equally reacting to light. EOMI. No scleral icterus. No conjunctival pallor. Normocephalic, atraumatic. No pharyngeal erythema. No thyromegaly. -CARDIOVASCULAR: S1 and S2 present. No murmurs, rubs, or gallops. Sternal wound is in a dressing PULMONARY: Chest is clear to auscultation, no wheezing or crackles. ABDOMEN: Soft, nontender, nondistended, normoactive bowel sounds. No palpable organomegaly. MUSCULOSKELETAL: No joint swelling or deformity. EXTREMITIES: No cyanosis, clubbing, or pedal edema. NEUROLOGICAL: Gross neurological examination did not reveal any focal deficits. SKIN: No rashes. No petechiae - Labs CBC & Chem 7: 10/15/19 05:27 10/15/19 05:27 Labs: Abnormal Lab Results - Last 24 Hours (Table) 10/14/19 10/14/19 10/15/19 Range/Units 17:25 19:05 05:27 WBC 12.4 H (3.8-10.6) k/uL RBC 2.51 L (3.80-5.40) m/uL Hgb 7.1 L (11.4-16.0) gm/dL Hct 23.3 L (34.0-46.0) % MCHC 30.5 L (31.0-37.0) g/dL RDW 18.8 H (11.5-15.5) % Chloride (98-107) mmol/L Carbon Dioxide (22-30) mmol/L BUN (7-17) mg/dL Creatinine (0.52-1.04) mg/dL Glucose (74-99) mg/dL POC Glucose (mg/dL) 130 H (75-99) mg/dL Urine Ketones Trace H (Negative) Ur Leukocyte Esterase Trace H (Negative) Urine Bacteria Rare H (None) /hpf Urine Mucus Rare H (None) /hpf 10/15/19 10/15/19 10/15/19 Range/Units 05:27 06:43 06:59 WBC (3.8-10.6) k/uL RBC (3.80-5.40) m/uL Hgb (11.4-16.0) gm/dL Hct (34.0-46.0) % MCHC (31.0-37.0) g/dL RDW (11.5-15.5) % Chloride 109 H (98-107) mmol/L Carbon Dioxide 21 L (22-30) mmol/L BUN 52 H (7-17) mg/dL Creatinine 2.12 H (0.52-1.04) mg/dL Glucose 58 L (74-99) mg/dL POC Glucose (mg/dL) 69 L 73 L (75-99) mg/dL Urine Ketones (Negative) Ur Leukocyte Esterase (Negative) Urine Bacteria (None) /hpf Urine Mucus (None) /hpf Microbiology - Last 24 Hours (Table) 10/10/19 09:45 Blood Culture - Preliminary Blood No Growth after 120 hours 10/10/19 09:31 Blood Culture - Preliminary Blood No Growth after 120 hours Assessment and Plan Plan: coronary artery disease, status post 1 vessel bypass surgery Cardiac arrhythmia with periods of A. fib, bradycardia, left bundle branch block Hypertension Diabetes mellitus and patient blood sugars were low cutting down the long-acting insulin as well as female in slight patient is being discharged today Hyperlipidemia chronic kidney disease, stage III : Acute kidney injury with the present serum creatinine of 2 secondary to congestive heart failure -Congestive heart failure chronic systolic dysfunction EF of around 20% with some acute exacerbation: Patient is status post pacemaker placement History of coronary artery disease, status post stent placement GERD -severe constipation: Resolved Severe mitral regurgitation, severe tricuspid regurgitation Severe pulmonary hypertension Hypothyroidism Sleep apnea on CPAP/BiPAP chronic
[2019-10-15] MEDS ORDERED: INSULIN DETEMIR (LEVEMIR) 100 UNIT/ML SYR SQ SCH (21:00)
--- NOTE | 2019-10-17 10:32 | CDI ---
Documentation Clarification Form Date: 10/17/19 From: Angelica Judd CCS Phone: If you have a question about this query, please contact Dorothea Núñez, It Portfolio Manager at [phone] between 8am and 5pm. Admit Date: 10/03/19 Discharge Date:10/15/19 Patient Name: Cony Mcmillan Visit Number: [id number] ATTENTION: The Clinical Documentation Specialists (CDI) and [facility] Coding Staff appreciate your assistance in clarifying documentation. Please respond to the clarification below the line at the bottom and electronically sign. The CDI & [facility] Coding staff will review the response and follow-up if needed. Please note: Queries are made part of the Legal Health Record. If you have any questions, please contact the author of this message via ITS. Dear Dr. Sawant, Discharge Summary documents: Poorly controlled insulin-dependent diabetes mellitus with preoperative hemoglobin A1c 10.7% PN and Consult document: History of diabetes mellitus, poorly controlled History/Risk Factors: CAD, HTN, CKD, CHF, Morbid obesity Clinical Indicators: Poorly controlled DM Glucose: 146, 156, 65, 58 Treatment: Novolog 10 units SQ, Levemir 15 unit SQ, HumuLIN 100 unit IV ONCE In order to capture the severity of Illness and necessary documentation specificity, please clarify: DM Type 2 uncontrolled with hyperglycemia DM Type 2 uncontrolled with hypoglycemia Other, please specify Unable to Determine type 2 uncontrolled with hyperglycemia MTDD
== END 2019-10-15 12:49 | DRG 219 ==
LOC: 2ORMAIN 05:49 → 2SICU 14:58
PROVIDERS: ADMIT Surgery; ATTEND Surgery
PROC: 5A1221Z Performance of Cardiac Output, Continuous (ICD-10-PCS; principal; 2019-10-03 08:00)
PROC: 02UG0JZ Supplement Mitral Valve with Synthetic Substitute, Open Approach (ICD-10-PCS; principal; 2019-10-03 08:00)
PROC: 02L70CK Occlusion of Left Atrial Appendage with Extraluminal Device, Open Approach (ICD-10-PCS; principal; 2019-10-03 08:00)
PROC: 02100Z9 Bypass Coronary Artery, One Artery from Left Internal Mammary, Open Approach (ICD-10-PCS; principal; 2019-10-03 08:00)
PROC: 30233N1 Transfusion of Nonautologous Red Blood Cells into Peripheral Vein, Percutaneous Approach (ICD-10-PCS; 2019-10-11)
PROC: 02HL3KZ Insertion of Defibrillator Lead into Left Ventricle, Percutaneous Approach (ICD-10-PCS; 2019-10-13 14:50)
PROC: 02H63KZ Insertion of Defibrillator Lead into Right Atrium, Percutaneous Approach (ICD-10-PCS; 2019-10-13 14:50)
PROC: 0JH609Z Insertion of Cardiac Resynchronization Defibrillator Pulse Generator into Chest Subcutaneous Tissue and Fascia, Open Approach (ICD-10-PCS; 2019-10-13 14:50)
DX: T82.855A Stenosis of coronary artery stent, initial encounter (principal); I50.23 Acute on chronic systolic (congestive) heart failure; I13.0 Hypertensive heart and chronic kidney disease with heart failure and stage 1 through stage 4 chronic kidney disease, or unspecified chronic kidney disease; J98.11 Atelectasis; D62 Acute posthemorrhagic anemia; N39.0 Urinary tract infection, site not specified; I45.2 Bifascicular block; I44.2 Atrioventricular block, complete; N17.9 Acute kidney failure, unspecified; B37.0 Candidal stomatitis; N18.3 Chronic kidney disease, stage 3 (moderate); E66.01 Morbid (severe) obesity due to excess calories; E11.22 Type 2 diabetes mellitus with diabetic chronic kidney disease; I25.10 Atherosclerotic heart disease of native coronary artery without angina pectoris; I27.29 Other secondary pulmonary hypertension; Z68.38 Body mass index [BMI] 38.0-38.9, adult; Z79.4 Long term (current) use of insulin; K56.41 Fecal impaction; I48.0 Paroxysmal atrial fibrillation; I08.1 Rheumatic disorders of both mitral and tricuspid valves; K21.9 Gastro-esophageal reflux disease without esophagitis; R00.1 Bradycardia, unspecified; R41.0 Disorientation, unspecified; R33.8 Other retention of urine; B96.1 Klebsiella pneumoniae [K. pneumoniae] as the cause of diseases classified elsewhere; T46.2X5A Adverse effect of other antidysrhythmic drugs, initial encounter; I25.5 Ischemic cardiomyopathy; E11.65 Type 2 diabetes mellitus with hyperglycemia; E03.9 Hypothyroidism, unspecified; G47.33 Obstructive sleep apnea (adult) (pediatric); E78.5 Hyperlipidemia, unspecified; M81.0 Age-related osteoporosis without current pathological fracture; Z79.899 Other long term (current) drug therapy; Y83.1 Surgical operation with implant of artificial internal device as the cause of abnormal reaction of the patient, or of later complication, without mention of misadventure at the time of the procedure; I25.2 Old myocardial infarction; Z79.82 Long term (current) use of aspirin; Z79.890 Hormone replacement therapy; Z98.41 Cataract extraction status, right eye; Z95.5 Presence of coronary angioplasty implant and graft; Z98.890 Other specified postprocedural states; Z82.49 Family history of ischemic heart disease and other diseases of the circulatory system; Z83.3 Family history of diabetes mellitus
CPT/HCPCS: 33225; 33249; 70450; 71045; 71046; 72125; 80048; 80053; 81001; 81003; 82330; 82805; 83735; 85025; 85027; 85520; 85610; 85730; 86140; 86850; 86891; 86900; 86901; 86920; 87040; 87086; 93306; 94002; 94003; 94640

== ENCOUNTER → 2020-05-04 | Outpatient (CLI) | payer MEDICARE ==
[2020-05-04 14:01] LABS: Appearance,Urine Clear (Clear); Bilirubin,Urine Negative (Negative); Blood,Urine Negative (Negative); Color,Urine Light Yellow; Glucose,Urine (UA) Negative (Negative); Ketones,Urine Negative (Negative); Leukocyte Esterase,Urine Negative (Negative); Mucus,Urine Rare /hpf; Nitrite,Urine Negative (Negative); Protein,Urine 2+ (Negative); RBC,Urine 3 /hpf (0-5); Specific Gravity,Urine 1.006 (1.001-1.035); Urobilinogen,Urine <2.0 mg/dL (<2.0); WBC,Urine 1 /hpf (0-5)
[2020-05-04 14:07] LABS: Anisocytosis Slight; Basophils % (A) 0 %; Eosinophils # (A) 0.1 k/uL (0-0.7); Eosinophils % (A) 2 %; HCT 35.7 % (34.0-46.0); HGB 11.3 gm/dL (11.4-16.0); Hypochromasia Slight; Lymphocytes # (A) 1.3 k/uL (1.0-4.8); Lymphocytes % (A) 17 %; MCH 29.4 pg (25.0-35.0); MCHC 31.7 g/dL (31.0-37.0); MCV 92.7 fL (80.0-100.0); Mean Platelet Volume 7.5; Monocytes # (A) 0.5 k/uL (0-1.0); Monocytes % (A) 6 %; Neutrophils # (A) 5.8 k/uL (1.3-7.7); Neutrophils % (A) 75 %; Platelet Count 173 k/uL (150-450); RBC 3.85 m/uL (3.80-5.40); RDW 18.4 % (11.5-15.5); WBC 7.8 k/uL (3.8-10.6)
[2020-05-04 14:15] LABS: Creatinine,Urine Random 11.3 mg/dL; Protein/Creatinine Ratio,Urine 11.858
[2020-05-04 21:51] LABS: % Iron Saturation 14.1 (12.00-45.00); African American GFR (CKD) 48.1 (60.0-200.0); BUN/Creat Ratio 16.15 Ratio (12.00-20.00); Calcium 9.4 mg/dL (8.7-10.3); Non-African American GFR(CKD) 41.5 (60.0-200.0); Potassium 4.6 mmol/L (3.5-5.5); Uric Acid 3.9 mg/dL (2.9-7.7)
[2020-05-04 21:59] LABS: Ferritin 117.5 ng/mL (10.0-291.0)
== END | disposition home or self-care (01) ==
LOC: LABWHC1 12:56
PROVIDERS: ATTEND Internal Medicine Nephrology
DX: N25.81 Secondary hyperparathyroidism of renal origin (principal); N18.32 Chronic kidney disease, stage 3b
CPT/HCPCS: 36415; 80048; 81001; 82040; 82306; 82570; 82728; 83540; 83550; 83970; 84100; 84156; 84550; 85025

== ENCOUNTER → 2020-06-29 | Outpatient (CLI) | payer MEDICARE ==
[2020-06-29 13:56] LABS: Appearance,Urine Clear (Clear); Bacteria,Urine Rare /hpf; Bilirubin,Urine Negative (Negative); Blood,Urine Trace (Negative); Color,Urine Light Yellow; Glucose,Urine (UA) Negative (Negative); Ketones,Urine Negative (Negative); Leukocyte Esterase,Urine Negative (Negative); Mucus,Urine Rare /hpf; Nitrite,Urine Negative (Negative); PH, Urine 6.5 (5.0-8.0); Protein,Urine 2+ (Negative); RBC,Urine 1 /hpf (0-5); Specific Gravity,Urine 1.008 (1.001-1.035); Squamous Epithelial Cell,Urine <1 /hpf (0-4); Urobilinogen,Urine <2.0 mg/dL (<2.0); WBC,Urine 4 /hpf (0-5)
[2020-06-29 13:59] LABS: Creatinine,Urine Random 18.2 mg/dL; Protein/Creatinine Ratio,Urine 8.956
[2020-06-29 23:28] LABS: Basophils # (A) 0.01 X 10*3/uL (0.00-0.10); Basophils % (A) 0.1 %; Eosinophils % (A) 1.1 %; HCT 33.9 % (37.2-46.3); HGB 10.5 g/dL (12.0-15.0); Lymphocytes # (A) 1.21 X 10*3/uL (0.90-5.00); Lymphocytes % (A) 13.5 %; MCH 30.3 pg (27.0-32.0); Mean Platelet Volume 10.6 fL (9.5-12.2); Monocytes # (A) 0.52 X 10*3/uL (0.20-1.00); Monocytes % (A) 5.8 %; Neutrophils # (A) 7.07 X 10*3/uL (1.80-7.70); Neutrophils % (A) 78.8 %; Platelet Count 237 X 10*3/uL (140-440); RBC 3.46 X 10*6/uL (4.10-5.20); RDW 16.5 % (11.5-14.5); WBC 8.97 X 10*3/uL (4.50-10.00)
[2020-06-30 01:04] LABS: % Iron Saturation 12.8 (12.00-45.00); African American GFR (CKD) 37.4 (60.0-200.0); Albumin 4.2 g/dL (3.80-4.90); Anion Gap 10.6 mmol/L (4.00-12.00); BUN/Creat Ratio 28.13 Ratio (12.00-20.00); Calcium 9.7 mg/dL (8.7-10.3); Carbon Dioxide 28.4 mmol/L (21.6-31.8); Magnesium 1.8 mg/dL (1.5-2.4); Non-African American GFR(CKD) 32.3 (60.0-200.0); Phosphorus 3.7 mg/dL (2.4-5.1); Potassium 4.4 mmol/L (3.5-5.5); Uric Acid 4.7 mg/dL (2.9-7.7)
[2020-06-30 01:12] LABS: Ferritin 119.7 ng/mL (10.0-291.0)
== END | disposition home or self-care (01) ==
LOC: LABWHC1 12:07
PROVIDERS: ATTEND Internal Medicine Nephrology
DX: E61.1 Iron deficiency (principal); N18.32 Chronic kidney disease, stage 3b; D63.1 Anemia in chronic kidney disease; E55.9 Vitamin D deficiency, unspecified; N25.81 Secondary hyperparathyroidism of renal origin; M10.9 Gout, unspecified; N39.0 Urinary tract infection, site not specified; R80.9 Proteinuria, unspecified
CPT/HCPCS: 36415; 80048; 81001; 82040; 82570; 82728; 83540; 83550; 83735; 83970; 84100; 84156; 84550; 85025

== ENCOUNTER → 2020-08-07 | Outpatient (CLI) | payer MEDICARE ==
[2020-08-07 15:41] LABS: Appearance,Urine Clear (Clear); Bilirubin,Urine Negative (Negative); Blood,Urine Negative (Negative); Color,Urine Light Yellow; Glucose,Urine (UA) Negative (Negative); Ketones,Urine Negative (Negative); Leukocyte Esterase,Urine Negative (Negative); Mucus,Urine Rare /hpf; Nitrite,Urine Negative (Negative); Protein,Urine 2+ (Negative); RBC,Urine 2 /hpf (0-5); Specific Gravity,Urine 1.007 (1.001-1.035); Urobilinogen,Urine <2.0 mg/dL (<2.0); WBC,Urine 2 /hpf (0-5)
[2020-08-07 22:11] LABS: HCT 34.4 % (37.2-46.3); HGB 10.5 g/dL (12.0-15.0); MCH 30.4 pg (27.0-32.0); MCHC 30.5 g/dL (32.0-37.0); MCV 99.7 fL (80.0-97.0); Mean Platelet Volume 10.4 fL (9.5-12.2); Platelet Count 216 X 10*3/uL (140-440); RBC 3.45 X 10*6/uL (4.10-5.20); RDW 16.1 % (11.5-14.5); WBC 7.82 X 10*3/uL (4.50-10.00)
[2020-08-08 05:30] LABS: African American GFR (CKD) 37.4 (60.0-200.0); Anion Gap 10.1 mmol/L (4.00-12.00); BUN/Creat Ratio 20.63 Ratio (12.00-20.00); Calcium 9.4 mg/dL (8.7-10.3); Carbon Dioxide 29.9 mmol/L (21.6-31.8); Non-African American GFR(CKD) 32.3 (60.0-200.0); Phosphorus 4.7 mg/dL (2.4-5.1); Potassium 4.8 mmol/L (3.5-5.5)
== END | disposition home or self-care (01) ==
LOC: LABWHC1 14:07
PROVIDERS: ATTEND Nurse Practitioner Family
DX: N18.32 Chronic kidney disease, stage 3b (principal)
CPT/HCPCS: 36415; 80048; 81001; 83970; 84100; 85027

== ENCOUNTER → 2020-09-20 | Outpatient (CLI) | payer MEDICARE ==
--- NOTE | 2020-09-20 15:58 | XR ---
EXAMINATION TYPE: XR chest 2V DATE OF EXAM: 09/20/2020 COMPARISON: 10/14/2019 HISTORY: Cough TECHNIQUE: Frontal and lateral views of the chest are obtained. FINDINGS: The lungs are grossly clear. Cardiac silhouette is unchanged in size with postoperative changes and AICD. IMPRESSION: No significant change since the prior exam.
== END | disposition home or self-care (01) ==
LOC: RADXRMAIN 15:30
PROVIDERS: ATTEND Physician Assistant
DX: R05 Cough (principal)
CPT/HCPCS: 71046

== ENCOUNTER → 2020-10-08 | Outpatient (CLI) | payer MEDICARE ==
--- NOTE | 2020-10-08 15:21 | XR ---
EXAMINATION TYPE: XR chest 2V DATE OF EXAM: 10/08/2020 COMPARISON: Chest x-ray 09/20/2020 HISTORY: Cough, shortness of breath and chest pain TECHNIQUE: Frontal and lateral views of the chest are obtained. FINDINGS: Cardiac mediastinal silhouette is stable. Patient is post median sternotomy and left atria l appendage clip placement, mitral valve replacement. Generator is present in the left pectoral regio n, there are leads in the right atrium and ventricle, coronary sinus. There is no evident pneumothora x or pleural effusion. The patient is rotated. Surgical clips present in the upper abdomen. IMPRESSION: No acute cardiopulmonary process. Stable findings.
--- NOTE | 2020-10-11 10:47 | MM ---
Reason for exam: screening (asymptomatic). Last mammogram was performed 2 years and 7 months ago. History: Patient is postmenopausal. Benign left mammotome panel of the left breast, February 16, 2006. Physical Findings: A clinical breast exam by your physician is recommended on an annual basis and results should be correlated with mammographic findings. MG Screening Mammo w CAD Bilateral CC and MLO view(s) were taken. Prior study comparison: February 16, 2018, bilateral MG screening mammo w CAD. The breast tissue is heterogeneously dense. This may lower the sensitivity of mammography. There are benign appearing round vascular calcifications bilaterally. Previous mammotome biopsy in the left breast. There is no discrete abnormality. New left axillary pacemaker. ASSESSMENT: Benign, BI-RAD 2 RECOMMENDATION: Routine screening mammogram of both breasts in 1 year.
== END | disposition home or self-care (01) ==
LOC: RADMAMWWP 14:37
PROVIDERS: ATTEND Pediatrics
DX: Z12.31 Encounter for screening mammogram for malignant neoplasm of breast (principal); R05 Cough
CPT/HCPCS: 71046; 77067

== ENCOUNTER 2021-02-10 15:11 | Inpatient (IN) | payer MEDICARE ==
[2021-02-10] MEDS ORDERED: ACETAMINOPHEN TAB 500 MG TAB PO STA (15:38)
[2021-02-10] MEDS ORDERED: IBUPROFEN 600 MG TAB PO STA (15:40)
[2021-02-10] MEDS: SODIUM CHLORIDE 0.9% 500 ML 500 ML IV SCH (15:55)
--- NOTE | 2021-02-10 15:55 | ED ---
General Adult HPI - General Chief complaint: Chest Pain Stated complaint: Weakness Time Seen by Provider: 02/10/21 15:24 Source: patient, family, RN notes reviewed Mode of arrival: wheelchair Limitations: no limitations - History of Present Illness Initial comments: 20-year-old female with a complicated past medical history presents to the emergency room for a chief complaint of cough. Patient has had a cough for the last couple days. States she is also congested and has had fevers and body aches. States she has some upper abdominal pain with coughing. Patient has no other complaints at this time including shortness of breath, chest pain, nausea or vomiting, headache, or visual changes. - Related Data Home Medications Medication Instructions Recorded Confirmed Pantoprazole [Protonix] 40 mg PO DAILY 07/25/17 02/10/21 allopurinoL [Zyloprim] 300 mg PO DAILY 11/26/18 02/10/21 Ergocalciferol [Vitamin D2 (1250 1,250 mcg PO WE 02/10/21 02/10/21 Mcg = 39119 Iu)] Furosemide [Lasix] 40 mg PO DAILY 02/10/21 02/10/21 Insulin Detemir (Levemir) [Levemir] 10 unit SQ HS 02/10/21 02/10/21 Isosorbide Mononitrate ER [Imdur] 30 mg PO DAILY 02/10/21 02/10/21 Levothyroxine Sodium [Synthroid] 150 mcg PO DAILY 02/10/21 02/10/21 Previous Rx's Medication Instructions Recorded Citalopram Hydrobromide [CeleXA] 20 mg PO DAILY tab 08/14/16 Atorvastatin [Lipitor] 40 mg PO DAILY tab 10/15/19 Clopidogrel [Plavix] 75 mg PO DAILY tab 10/15/19 Metoprolol Succinate (ER) [Toprol 25 mg PO DAILY tab.er.24h 10/15/19 XL] Allergies Allergy/AdvReac Type Severity Reaction Status Date / Time No Known Allergies Allergy Verified 02/10/21 16:51 Review of Systems ROS Statement: Those systems with pertinent positive or pertinent negative responses have been documented in the HPI. ROS Other: All systems not noted in ROS Statement are negative. Past Medical History Past Medical History: Coronary Artery Disease (CAD), Chest Pain / Angina, Heart Failure, Diabetes Mellitus, Eye Disorder, Hyperlipidemia, Hypertension, Myocardi al Infarction (OR), Renal Disease, Sleep Apnea/CPAP/BIPAP, Thyroid Disorder Additional Past Medical History / Comment(s): Right cataract. CAD with Stent to Proximal LAD 03/31/2015. Not using CPAP, Recent admit w/ CP, UTI. Cardiac stent to proximal LAD 2016 Last Myocardial Infarction Date:: 03/31/2015 History of Any Multi-Drug Resistant Organisms: None Reported Past Surgical History: Breast Surgery, Heart Catheterization, Heart Catheterization With Stent Additional Past Surgical History / Comment(s): Left breast bx-neg, buttocks sx- pt stated:" they told me I had gangrene and had sx to remove", lt cataract, Heart Cath 11/18/16. Past Anesthesia/Blood Transfusion Reactions: No Reported Reaction Date of Last Stent Placement:: 2014 Past Psychological History: No Psychological Hx Reported Smoking Status: Never smoker Past Alcohol Use History: None Reported Past Drug Use History: None Reported - Past Family History Father Family Medical History: Unable to Obtain Additional Family Medical History / Comment(s): Father from motor vehicle accident Mother Family Medical History: Diabetes Mellitus, Hypertension General Exam Limitations: no limitations General appearance: alert, in no apparent distress Head exam: Present: atraumatic Eye exam: Present: normal appearance, PERRL, EOMI. Absent: scleral icterus, conjunctival injection ENT exam: Present: normal exam, mucous membranes moist Neck exam: Present: normal inspection, full ROM. Absent: tenderness Respiratory exam: Present: normal lung sounds bilaterally. Absent: respiratory distress, wheezes Cardiovascular Exam: Present: regular rate, normal rhythm, normal heart sounds GI/Abdominal exam: Present: soft, normal bowel sounds. Absent: distended, tenderness Course Vital Signs 02/10/21 02/10/21 02/10/21 15:18 15:38 16:00 Temperature 101.6 F H Pulse Rate 69 71 Pulse Rate [ 82 Fitting Room Inspector ] Respiratory 22 18 Rate Blood Pressure 111/56 120/43 O2 Sat by Pulse 91 L 94 L Oximetry EKG Findings - EKG Comments: EKG Findings:: Ventricular paced rhythm, ventricular rate is 74, CT interval 154, QRS 158 Medical Decision Making - Medical Decision Making Patient presents hypoxic on room air and 90%. She is febrile with a temperature of 101.6. CBC does show leukocytosis. Lactic acid is slightly elevated 2.2 however no hypotension. We will treat with fluids. Chest x-ray shows right lower lobe pneumonia. This was confirmed at 1642. Patient was started on Rocephin and azithromycin. Patient is also very dehydrated. Will be admitted for treatment of pneumonia. EKG nonischemic however patient was complaining of pleuritic chest pain. I suspect this is secondary to pneumonia. We will trend troponin however at this time will defer to medicine whether they will want to consult cardiology. - Lab Data Result diagrams: 02/10/21 15:55 02/10/21 15:55 Lab Results 02/10/21 02/10/21 02/10/21 Range/Units 15:48 15:55 15:55 WBC 14.9 H (3.8-10.6) k/uL RBC 3.40 L (3.80-5.40) m/uL Hgb 10.7 L (11.4-16.0) gm/dL Hct 32.6 L (34.0-46.0) % MCV 95.9 (80.0-100.0) fL MCH 31.3 (25.0-35.0) pg MCHC 32.7 (31.0-37.0) g/dL RDW 13.3 (11.5-15.5) % Plt Count 220 (150-450) k/uL MPV 8.0 Neutrophils % 91 % Lymphocytes % 5 % Monocytes % 3 % Eosinophils % 0 % Basophils % 0 % Neutrophils # 13.5 H (1.3-7.7) k/uL Lymphocytes # 0.8 L (1.0-4.8) k/uL Monocytes # 0.5 (0-1.0) k/uL Eosinophils # 0.0 (0-0.7) k/uL Basophils # 0.0 (0-0.2) k/uL PT 10.7 (9.0-12.0) sec INR 1.0 (<1.2) APTT 28.9 (22.0-30.0) sec Sodium (137-145) mmol/L Potassium (3.5-5.1) mmol/L Chloride (98-107) mmol/L Carbon Dioxide (22-30) mmol/L Anion Gap mmol/L BUN (7-17) mg/dL Creatinine (0.52-1.04) mg/dL Est GFR (CKD-EPI)AfAm (>60 ml/min/1.73 sqM) Est GFR (CKD-EPI)NonAf (>60 ml/min/1.73 sqM) Glucose (74-99) mg/dL Plasma Lactic Acid Tye (0.7-2.0) mmol/L Calcium (8.4-10.2) mg/dL Total Bilirubin (0.2-1.3) mg/dL AST (14-36) U/L ALT (4-34) U/L Alkaline Phosphatase (38-126) U/L Troponin I (0.000-0.034) ng/mL Total Protein (6.3-8.2) g/dL Albumin (3.5-5.0) g/dL Coronavirus (PCR) Not Detected (Not Detectd) 02/10/21 02/10/21 02/10/21 Range/Units 15:55 15:55 15:55 WBC (3.8-10.6) k/uL RBC (3.80-5.40) m/uL Hgb (11.4-16.0) gm/dL Hct (34.0-46.0) % MCV (80.0-100.0) fL MCH (25.0-35.0) pg MCHC (31.0-37.0) g/dL RDW (11.5-15.5) % Plt Count (150-450) k/uL MPV Neutrophils % % Lymphocytes % % Monocytes % % Eosinophils % % Basophils % % Neutrophils # (1.3-7.7) k/uL Lymphocytes # (1.0-4.8) k/uL Monocytes # (0-1.0) k/uL Eosinophils # (0-0.7) k/uL Basophils # (0-0.2) k/uL PT (9.0-12.0) sec INR (<1.2) APTT (22.0-30.0) sec Sodium 133 L (137-145) mmol/L Potassium 4.1 (3.5-5.1) mmol/L Chloride 99 (98-107) mmol/L Carbon Dioxide 23 (22-30) mmol/L Anion Gap 11 mmol/L BUN 60 H (7-17) mg/dL Creatinine 2.87 H (0.52-1.04) mg/dL Est GFR (CKD-EPI)AfAm 18 (>60 ml/min/1.73 sqM) Est GFR (CKD-EPI)NonAf 16 (>60 ml/min/1.73 sqM) Glucose 174 H (74-99) mg/dL Plasma Lactic Acid Tye 2.2 H* (0.7-2.0) mmol/L Calcium 8.4 (8.4-10.2) mg/dL Total Bilirubin 1.4 H (0.2-1.3) mg/dL AST 30 (14-36) U/L ALT 14 (4-34) U/L Alkaline Phosphatase 103 (38-126) U/L Troponin I <0.012 (0.000-0.034) ng/mL Total Protein 6.0 L (6.3-8.2) g/dL Albumin 3.0 L (3.5-5.0) g/dL Coronavirus (PCR) (Not Detectd) Disposition Clinical Impression: Pneumonia, Dehydration, Hypoxia, Fever, Leukocytosis Disposition: ADMITTED IP TO THIS HOSP Referrals: Eduin Moore MD [Primary Care Provider] - 1-2 days Time of Disposition: 17:35
[2021-02-10 16:16] LABS: Basophils % (A) 0 %; Eosinophils % (A) 0 %; HCT 32.6 % (34.0-46.0); HGB 10.7 gm/dL (11.4-16.0); Lymphocytes # (A) 0.8 k/uL (1.0-4.8); Lymphocytes % (A) 5 %; MCH 31.3 pg (25.0-35.0); MCHC 32.7 g/dL (31.0-37.0); MCV 95.9 fL (80.0-100.0); Monocytes # (A) 0.5 k/uL (0-1.0); Monocytes % (A) 3 %; Neutrophils # (A) 13.5 k/uL (1.3-7.7); Neutrophils % (A) 91 %; Platelet Count 220 k/uL (150-450); RDW 13.3 % (11.5-15.5); WBC 14.9 k/uL (3.8-10.6)
[2021-02-10 16:25] LABS: Partial Thromboplastin Time 28.9 sec (22.0-30.0); Prothrombin Time 10.7 sec (9.0-12.0)
[2021-02-10 16:26] LABS: Calcium 8.4 mg/dL (8.4-10.2); Potassium 4.1 mmol/L (3.5-5.1); Total Bilirubin 1.4 mg/dL (0.2-1.3)
--- NOTE | 2021-02-10 16:45 | XR ---
EXAMINATION TYPE: XR chest 2V DATE OF EXAM: 02/10/2021 COMPARISON: 10/08/2020 HISTORY: Fever TECHNIQUE: 2 views FINDINGS: There is some airspace infiltrate right lower lobe. The left lung is fairly clear. Heart is enlarged. There is left axillary pacemaker. There are sternal wires. IMPRESSION: There is right lower lobe pneumonia which is new compared to old exam. No heart failure s een.
--- NOTE | 2021-02-10 17:02 | US ---
EXAMINATION TYPE: US gallbladder DATE OF EXAM: 02/10/2021 COMPARISON: CT 2018 CLINICAL HISTORY: pain. ruq pain EXAM MEASUREMENTS: Liver Length: 15.0 cm Gallbladder Wall: not seen, presumed surgically absent CBD: up to 1.4 cm near pancreas head Right Kidney: 10.8 x 5.2 x 6.4 cm Pancreas: Obscured by bowel gas Liver: wnl Gallbladder: presumed surgically absent due to CT report, patient and family have no recollection of it being removed. Evidence for sonographic Hannah's sign: No CBD: dilated up to 1.4 cm near pancreas head. Right Kidney: No hydronephrosis or masses seen IMPRESSION: No focal liver defect. Intrahepatic bile ducts do not appear dilated but the common bile duct is larg e. There is apparent cholecystectomy.
[2021-02-10] MEDS ORDERED: cefTRIAXone IN SWFI 1,000 MG/10 ML SYRINGE IVP STA (17:10)
[2021-02-10] MEDS ORDERED: AZITHROMYCIN 500 MG in SODIUM CHLORIDE 0.9% 250 ML IVPB STA (17:10)
[2021-02-10] MEDS ORDERED: PNEUMONIA PROTOCOL UTILIZED 1 EACH MISC PO PRN (17:35)
[2021-02-10] MEDS ORDERED: ACETAMINOPHEN TAB 325 MG TAB PO PRN (17:37)
[2021-02-10] MEDS: SODIUM CHLORIDE 0.9% 1,000 ML IV SCH ×2 (18:43→21:38)
[2021-02-10 21:07] LABS: Glucose,Whole Blood 215 mg/dL (75-99)
[2021-02-10] MEDS: INSULIN ASPART (NovoLOG) 100 UNIT/ML VIAL SQ SCH (21:36)
[2021-02-11 05:29] LABS: Appearance,Urine Cloudy (Clear); Bacteria,Urine Many /hpf; Bilirubin,Urine Negative (Negative); Blood,Urine Negative (Negative); Color,Urine Yellow; Glucose,Urine (UA) Negative (Negative); Hyaline Casts,Urine 12 /lpf (0-2); Ketones,Urine Negative (Negative); Leukocyte Esterase,Urine Moderate (Negative); Mucus,Urine Rare /hpf; Nitrite,Urine Negative (Negative); Protein,Urine 1+ (Negative); RBC,Urine 4 /hpf (0-5); Specific Gravity,Urine 1.017 (1.001-1.035); Squamous Epithelial Cell,Urine 14 /hpf (0-4); Urobilinogen,Urine <2.0 mg/dL (<2.0); WBC,Urine 25 /hpf (0-5)
[2021-02-11 07:30] LABS: Glucose,Whole Blood 139 mg/dL (75-99)
--- NOTE | 2021-02-11 08:25 | XR ---
EXAMINATION TYPE: XR chest 1V portable DATE OF EXAM: 02/11/2021 COMPARISON: Chest x-ray 02/10/2021 HISTORY: Pneumonia TECHNIQUE: Single frontal view of the chest is obtained. FINDINGS: There is a generator in the left pectoral region, leads are present in the right atrium, r ight ventricle, coronary sinus. Patient is post median sternotomy and cardiac valve replacement, left atrial appendage clip placement. The heart is enlarged. There is no evident pneumothorax or pleural effusion. Airspace disease persists at the right lung base. IMPRESSION: Findings are similar to prior exam. Correlate for pneumonia
[2021-02-11] MEDS: METOPROLOL SUCCINATE (ER) 25 MG TAB.ER.24H PO SCH (08:41)
[2021-02-11] MEDS: ISOSORBIDE MONONITRATE ER 30 MG TAB.ER.24H PO SCH (08:41)
[2021-02-11] MEDS: PANTOPRAZOLE 40 MG TABLET PO SCH (08:41)
[2021-02-11] MEDS: allopurinoL 100 MG TAB PO SCH (08:41)
[2021-02-11] MEDS: LEVOTHYROXINE 75 MCG TAB PO SCH (08:41)
[2021-02-11] MEDS: ATORVASTATIN 40 MG TAB PO SCH (08:41)
[2021-02-11] MEDS: CLOPIDOGREL 75 MG TAB PO SCH (08:42)
[2021-02-11] MEDS: CITALOPRAM HYDROBROMIDE 20 MG TAB PO SCH (08:42)
[2021-02-11] MEDS: INSULIN ASPART (NovoLOG) 100 UNIT/ML VIAL SQ SCH ×3 (08:42→16:59)
[2021-02-11] MEDS ORDERED: FUROSEMIDE 40 MG TAB PO SCH (09:00)
[2021-02-11 11:51] LABS: Glucose,Whole Blood 94 mg/dL (75-99)
[2021-02-11] MEDS: SODIUM CHLORIDE 0.9% 1,000 ML IV SCH ×2 (14:28→17:00)
[2021-02-11 16:43] LABS: Glucose,Whole Blood 121 mg/dL (75-99)
[2021-02-11] MEDS: AZITHROMYCIN 500 MG in SODIUM CHLORIDE 0.9% 250 ML IVPB SCH (16:56)
--- NOTE | 2021-02-11 18:34 | P.HPIM ---
History of Present Illness H&P Date: 02/11/21 Chief Complaint: Cough History of presenting complaint: This is a pleasant 70-year-old patient of Dr. Moore. Chronic stable medical conditions include coronary artery disease with stent/bypass, diabetes, hypertension, hyperlipidemia, hypothyroid, obstructive sleep apnea does not use CPAP. stent to LAD in 2017. Mitral valve repair for severe mitral regurgitation Patient presents with increasing shortness of breath edema some chills. No cough. No sore throat. No headache. Edema is significant. Always uses 3 pillows. Patient now presents with to 3 days of cough that is dry. Decreased appetite. Fever. Dizzy diet. Rundown. No wheezing. No chest pain Review of systems: GEN.: Tired, decreased appetite, fever EYES: None HEENT: None NECK: None RESPIRATORY: As above] CARDIOVASCULAR: No chest pain GASTROINTESTINAL: Occasional diarrhea GENITOURINARY: None MUSCULOSKELETAL: None LYMPHATICS: None HEMATOLOGICAL: None PSYCHIATRY: None NEUROLOGICAL: Anxious Past medical history to include: Coronary artery disease with stent/bypass, mitral valve repair, CHF, diabetes, hyperlipidemia, hypertension, obstructive sleep apnea does not use CPAP, hypothyroid, Social history: Lives with . No smoking or alcohol Physical examination: VITAL SIGNS: 101.6, 69, 22, 111/56, 91% room air GENERAL: BMI 30.2, reclining in bed, awake, tired EYES: Pupils equal. Conjunctiva normal. HEENT: External appearance of nose and ears normal, oral cavity grossly normal. NECK: JVD possibly raise; masses not palpable. HEART: First and second heart sounds are normal; some edema LUNGS: Respiratory rate increased; decreased breath sounds. Basal crackles ABDOMEN: Soft, nontender, liver spleen not palpable, no masses palpable. PSYCH: [Alert and oriented x3; mood and affect tired NEUROLOGICAL: Cranial nerves grossly intact; no facial asymmetry, power and s ensation grossly intact. LYMPHATICS: No lymph nodes palpable in the axilla and neck Investigations White count 14.9 hemoglobin 10.7 platelets 220 2133 potassium 4.1 BUN 60 creatinine 2.87 Lactic acid venous 2.2, repeat 1.3 Troponin I less than 0.0123 UA positive for leukoesterase, obesity 25 squamous epithelial cells 14 bacteria many. Coronavirus [PCR]: Not injected EKG tracing personally reviewed by dc-ventricular pacemaker. Chest x-ray film personally reviewed by me-right lower lobe infiltrate Previous labs: BUN 33 creatinine 1.6 on July 2020 Assessment and plan: -Right lower lobe pneumonia, suspect gram-negative organism Patient received ceftriaxone in the ER. Was just cefepime 1 g every 12. --chronic congestive heart failure exacerbation from systolic dysfunction EF 35- 40%, from underlying coronary artery disease, Follow clinically -Moderate to severe tricuspid regurgitation, nontraumatic Follow clinically -Coronary artery with stent/bypass Toprol-XL, Lipitor 40 mg -Diabetes mellitus type 2, uncontrolled with hyperglycemia Subcu Levemir. Follow Accu-Cheks -Essential hypertension Toprol-XL 25 mg a day -Chronic kidney disease stage III from nephrosclerosis and diabetic nephropathy Creatinine was 1.6 August of this year -Acute kidney injury combination of ATN from sepsis and prerenal from decreased oral intake IV fluids. Follow labs -Hyperlipidemia 40 mg Lipitor daily -Hypothyroid Synthroid 150 g daily -Obstructive status sleep apnea does not use CPAP -Obesity BMI 30.2 IV cefepime. Home medications resumed. Normal saline. Follow labs. Diet as tolerated. Given the complexity and severity of patient's condition expect the patient to be in the hospital at least for 2 overnights Past Medical History Past Medical History: Coronary Artery Disease (CAD), Chest Pain / Angina, Heart Failure, Diabetes Mellitus, Eye Disorder, Hyperlipidemia, Hypertension, Myocardial Infarction (PA), Renal Disease, Sleep Apnea/CPAP/BIPAP, Thyroid Disorder Additional Past Medical History / Comment(s): Right cataract. CAD with Stent to Proximal LAD 03/31/2015. Haven't been wearing. Recent admit w/ CP, UTI. Cardiac stent to proximal LAD 2016 Last Myocardial Infarction Date:: 03/31/2015 History of Any Multi-Drug Resistant Organisms: None Reported Past Surgical History: Breast Surgery, Heart Catheterization, Heart Catheteriza tion With Stent, Pacemaker Additional Past Surgical History / Comment(s): Left breast bx-neg, buttocks sx- pt stated:" they told me I had gangrene and had sx to remove", lt cataract, Heart Cath 11/18/16. Past Anesthesia/Blood Transfusion Reactions: No Reported Reaction Date of Last Stent Placement:: 2014 Past Psychological History: No Psychological Hx Reported Additional Psychological History / Comment(s): Pt resides with her spouse and 2 adult children. Pt is independent. Smoking Status: Never smoker Past Alcohol Use History: None Reported Past Drug Use History: None Reported - Past Family History Father Family Medical History: Unable to Obtain Additional Family Medical History / Comment(s): Father from motor vehicle accident Mother Family Medical History: Diabetes Mellitus, Hypertension Medications and Allergies Home Medications Medication Instructions Recorded Confirmed Type Citalopram Hydrobromide [CeleXA] 20 mg PO DAILY tab 08/14/16 02/10/21 Rx Pantoprazole [Protonix] 40 mg PO DAILY 07/25/17 02/10/21 History allopurinoL [Zyloprim] 300 mg PO DAILY 11/26/18 02/10/21 History Atorvastatin [Lipitor] 40 mg PO DAILY tab 10/15/19 02/10/21 Rx Clopidogrel [Plavix] 75 mg PO DAILY tab 10/15/19 02/10/21 Rx Metoprolol Succinate (ER) [Toprol 25 mg PO DAILY tab.er.24h 10/15/19 02/10/21 Rx XL] Ergocalciferol [Vitamin D2 (1250 1,250 mcg PO WE 02/10/21 02/10/21 History Mcg = 29456 Iu)] Furosemide [Lasix] 40 mg PO DAILY 02/10/21 02/10/21 History Insulin Detemir (Levemir) [Levemir] 10 unit SQ HS 02/10/21 02/10/21 History Isosorbide Mononitrate ER [Imdur] 30 mg PO DAILY 02/10/21 02/10/21 History Levothyroxine Sodium [Synthroid] 150 mcg PO DAILY 02/10/21 02/10/21 History Allergies Allergy/AdvReac Type Severity Reaction Status Date / Time No Known Allergies Allergy Verified 02/10/21 16:51 Physical Exam Vitals: Vital Signs Temp Pulse Pulse Pulse Resp BP BP 02/11/21 09:12 02/11/21 07:11 97.9 F 61 18 132/78 02/11/21 02:49 97.9 F 61 103/58 02/10/21 20:00 62 02/10/21 18:40 99.5 F 64 18 115/50 02/10/21 17:54 98.4 F 18 110/63 02/10/21 16:00 71 18 120/43 02/10/21 15:38 82 02/10/21 15:18 101.6 F H 69 22 111/56 Pulse Ox 02/11/21 09:12 91 L 02/11/21 07:11 99 02/11/21 02:49 91 L 02/10/21 20:00 98 02/10/21 18:40 97 02/10/21 17:54 02/10/21 16:00 94 L 02/10/21 15:38 02/10/21 15:18 91 L Intake and Output 02/10/21 02/11/21 02/11/21 22:59 06:59 14:59 Other: # Voids 1 # Bowel Movements 1 Weight 83.461 kg Results CBC & Chem 7: 02/10/21 15:55 02/10/21 15:55 Labs: Abnormal Lab Results - Last 24 Hours (Table) 02/10/21 02/10/21 02/10/21 Range/Units 15:38 15:55 15:55 WBC 14.9 H (3.8-10.6) k/uL RBC 3.40 L (3.80-5.40) m/uL Hgb 10.7 L (11.4-16.0) gm/dL Hct 32.6 L (34.0-46.0) % Neutrophils # 13.5 H (1.3-7.7) k/uL Lymphocytes # 0.8 L (1.0-4.8) k/uL Sodium 133 L (137-145) mmol/L BUN 60 H (7-17) mg/dL Creatinine 2.87 H (0.52-1.04) mg/dL Glucose 174 H (74-99) mg/dL POC Glucose (mg/dL) (75-99) mg/dL Plasma Lactic Acid Tye (0.7-2.0) mmol/L Total Bilirubin 1.4 H (0.2-1.3) mg/dL Total Protein 6.0 L (6.3-8.2) g/dL Albumin 3.0 L (3.5-5.0) g/dL Urine Appearance Cloudy H (Clear) Urine Protein 1+ H (Negative) Ur Leukocyte Esterase Moderate H (Negative) Urine WBC 25 H (0-5) /hpf Ur Squamous Epith Cells 14 H (0-4) /hpf Urine Bacteria Many H (None) /hpf Hyaline Casts 12 H (0-2) /lpf Urine Mucus Rare H (None) /hpf 02/10/21 02/10/21 02/11/21 Range/Units 15:55 21:04 07:29 WBC (3.8-10.6) k/uL RBC (3.80-5.40) m/uL Hgb (11.4-16.0) gm/dL Hct (34.0-46.0) % Neutrophils # (1.3-7.7) k/uL Lymphocytes # (1.0-4.8) k/uL Sodium (137-145) mmol/L BUN (7-17) mg/dL Creatinine (0.52-1.04) mg/dL Glucose (74-99) mg/dL POC Glucose (mg/dL) 215 H 139 H (75-99) mg/dL Plasma Lactic Acid Tye 2.2 H* (0.7-2.0) mmol/L Total Bilirubin (0.2-1.3) mg/dL Total Protein (6.3-8.2) g/dL Albumin (3.5-5.0) g/dL Urine Appearance (Clear) Urine Protein (Negative) Ur Leukocyte Esterase (Negative) Urine WBC (0-5) /hpf Ur Squamous Epith Cells (0-4) /hpf Urine Bacteria (None) /hpf Hyaline Casts (0-2) /lpf Urine Mucus (None) /hpf Thrombosis Risk Factor Assmnt - Choose All That Apply Each Factor Represents 1 point: Obesity (BMI >25), Serious lung disease incl. pneumonia (< 1month) Each Risk Factor Represents 2 Points: Age 61-74 years Other congenital or acquired thrombophilia - If yes, enter type in comment: No Thrombosis Risk Factor Assessment Total Risk Factor Score: 4 Thrombosis Risk Factor Assessment Level: Moderate Risk
[2021-02-11] MEDS ORDERED: CEFEPIME 2 GM in SODIUM CHLORIDE 0.9% 100 ML IVPB SCH (21:00)
[2021-02-11 21:15] LABS: Glucose,Whole Blood 117 mg/dL (75-99)
[2021-02-11] MEDS: CEFEPIME 1 GM in SODIUM CHLORIDE 0.9% 50 ML IVPB SCH (21:30)
[2021-02-12] MEDS: INSULIN ASPART (NovoLOG) 100 UNIT/ML VIAL SQ SCH ×5 (00:08→21:00)
[2021-02-12] MEDS: SODIUM CHLORIDE 0.9% 1,000 ML IV SCH ×3 (03:00→16:51)
[2021-02-12 06:50] LABS: African American GFR (CKD) 27 (>60 ml/min/1.73 sqM); Anion Gap 9 mmol/L; Blood Urea Nitrogen 52 mg/dL (7-17); Calcium 8.7 mg/dL (8.4-10.2); Carbon Dioxide 22 mmol/L (22-30); Chloride 112 mmol/L (98-107); Glucose 90 mg/dL (74-99); Non-African American GFR(CKD) 23 (>60 ml/min/1.73 sqM); Potassium 3.7 mmol/L (3.5-5.1); Sodium 143 mmol/L (137-145)
[2021-02-12 06:56] LABS: Glucose,Whole Blood 84 mg/dL (75-99)
[2021-02-12] MEDS: LEVOTHYROXINE 75 MCG TAB PO SCH (08:12)
[2021-02-12] MEDS: ATORVASTATIN 40 MG TAB PO SCH (09:50)
[2021-02-12] MEDS: CITALOPRAM HYDROBROMIDE 20 MG TAB PO SCH (09:50)
[2021-02-12] MEDS: PANTOPRAZOLE 40 MG TABLET PO SCH (09:50)
[2021-02-12] MEDS: allopurinoL 100 MG TAB PO SCH (09:51)
[2021-02-12] MEDS: METOPROLOL SUCCINATE (ER) 25 MG TAB.ER.24H PO SCH (09:51)
[2021-02-12] MEDS: ISOSORBIDE MONONITRATE ER 30 MG TAB.ER.24H PO SCH (09:51)
[2021-02-12] MEDS: CLOPIDOGREL 75 MG TAB PO SCH (09:52)
[2021-02-12] MEDS: AZITHROMYCIN 500 MG in SODIUM CHLORIDE 0.9% 250 ML IVPB SCH (10:03)
[2021-02-12 11:34] LABS: Glucose,Whole Blood 117 mg/dL (75-99)
[2021-02-12] MEDS: CEFEPIME 1 GM in SODIUM CHLORIDE 0.9% 50 ML IVPB SCH ×2 (11:49→21:54)
[2021-02-12 16:34] LABS: Glucose,Whole Blood 101 mg/dL (75-99)
--- NOTE | 2021-02-12 17:04 | P.PN ---
Progress Note - Text Progress Note Date: 02/12/21 Chief Complaint: Cough History of presenting complaint: This is a pleasant 70-year-old patient of Dr. Moore. Chronic stable medical conditions include coronary artery disease with stent/bypass, diabetes, hypertension, hyperlipidemia, hypothyroid, obstructive sleep apnea does not use CPAP. stent to LAD in 2017. Mitral valve repair for severe mitral regurgitation Patient presents with increasing shortness of breath edema some chills. No cough. No sore throat. No headache. Edema is significant. Always uses 3 pillows. presents with to 3 days of cough that is dry. Decreased appetite. Fever. Dizzy diet. Rundown. No wheezing. No chest pain Admitted with right lower lobe pneumonia, ATN from sepsis. Started IV fluids, IV cefepime. 02/12/2021: Feels a bit better. Poor taste. Decreased appetite.. Dry cough. No fever. COVID PCR ordered. Put in isolation. Continue IV cefepime. Blood cultures coming back positive. Contaminant with Staphylococcus epidermidis. Review of systems: Was done for constitutional, cardiovascular, GI, pulmonary. relevant finding as above Active Medications Acetaminophen (Acetaminophen Tab 325 Mg Tab) 650 mg PO Q6H PRN PRN Reason: Fever Allopurinol (Allopurinol 100 Mg Tab) 200 mg PO DAILY [facility] Last Admin: 02/12/21 09:51 Dose: 200 mg Documented by: Atorvastatin Calcium (Atorvastatin 40 Mg Tab) 40 mg PO DAILY [facility] Last Admin: 02/12/21 09:50 Dose: 40 mg Documented by: Citalopram Hydrobromide (Citalopram Hydrobromide 20 Mg Tab) 20 mg PO DAILY [facility] Last Admin: 02/12/21 09:50 Dose: 20 mg Documented by: Clopidogrel Bisulfate (Clopidogrel 75 Mg Tab) 75 mg PO DAILY [facility] Last Admin: 02/12/21 09:52 Dose: 75 mg Documented by: Ergocalciferol (Ergocalciferol 1,250 Mcg (50,000 Iu) Capsule) 1,250 mcg PO WE [facility] Sodium Chloride (Saline 0.9%) 1,000 mls @ 50 mls/hr IV .Q20H [facility] Last Admin: 02/12/21 16:51 Dose: Not Given Documented by: Azithromycin 500 mg/ Sodium (Chloride) 250 mls @ 250 mls/hr IVPB DAILY [facility] Stop: 02/14/21 09:59 Last Admin: 02/12/21 10:03 Dose: 250 mls/hr Documented by: Cefepime HCl 1 gm/ Sodium (Chloride) 50 mls @ 12.5 mls/hr IVPB Q12HR [facility] Last Admin: 02/12/21 11:49 Dose: 12.5 mls/hr Documented by: Insulin Aspart (Insulin Aspart (Novolog) 100 Unit/Ml Vial) 0 unit SQ ACHS [facility]; Protocol Last Admin: 02/12/21 16:51 Dose: Not Given Documented by: Isosorbide Mononitrate (Isosorbide Mononitrate Er 30 Mg Tab.Er.24h) 30 mg PO DAILY [facility] Last Admin: 02/12/21 09:51 Dose: 30 mg Documented by: Levothyroxine Sodium (Levothyroxine 75 Mcg Tab) 150 mcg PO DAILY@0730 [facility] Last Admin: 02/12/21 08:12 Dose: 150 mcg Documented by: Metoprolol Succinate (Metoprolol Succinate (Er) 25 Mg Tab.Er.24h) 25 mg PO DAILY [facility] Last Admin: 02/12/21 09:51 Dose: 25 mg Documented by: Miscellaneous Information (Pneumonia Protocol Utilized 1 Each Misc) 1 each PO ONCE PRN PRN Reason: Per Protocol Pantoprazole Sodium (Pantoprazole 40 Mg Tablet) 40 mg PO DAILY [facility] Last Admin: 02/12/21 09:50 Dose: 40 mg Documented by: Past medical history to include: Coronary artery disease with stent/bypass, mitral valve repair, CHF, diabetes, hyperlipidemia, hypertension, obstructive sleep apnea does not use CPAP, hypothyroid, Social history: Lives with . No smoking or alcohol Physical examination: VITAL SIGNS: Afebrile, 69, 20, 132/79, 100% on 2 L GENERAL: Reclining in bed, more awake less tired EYES: Pupils equal. Conjunctiva normal. HEENT: External appearance of nose and ears normal, oral cavity grossly normal. NECK: JVD possibly raise; masses not palpable. HEART: First and second heart sounds are normal; some edema LUNGS: Respiratory rate increased; decreased breath sounds. Basal crackles ABDOMEN: Soft, nontender, liver spleen not palpable, no masses palpable. PSYCH: [Alert and oriented x3; mood and affect tired Investigations February 12: Potassium 3.7 BUN 52 creatinine 2.1 White count 14.9 hemoglobin 10.7 platelets 220 2133 potassium 4.1 BUN 60 creatinine 2.87 Lactic acid venous 2.2, repeat 1.3 Troponin I less than 0.0123 UA positive for leukoesterase, obesity 25 squamous epithelial cells 14 bacteria many. Coronavirus [PCR]: Not injected EKG tracing personally reviewed by me-ventricular pacemaker. Chest x-ray film personally reviewed by me-right lower lobe infiltrate Previous labs: BUN 33 creatinine 1.6 on July 2020 Assessment and plan: -Right lower lobe pneumonia, suspect gram-negative organism cefepime 1 g every 12. DC Zithromax. --chronic congestive heart failure exacerbation from systolic dysfunction EF 35- 40%, from underlying coronary artery disease, Follow clinically -Moderate to severe tricuspid regurgitation, nontraumatic Follow clinically -Coronary artery with stent/bypass Toprol-XL, Lipitor 40 mg -Diabetes mellitus type 2, uncontrolled with hyperglycemia Subcu Levemir. Follow Accu-Cheks -Essential hypertension Toprol-XL 25 mg a day -Chronic kidney disease stage III from nephrosclerosis and diabetic nephropathy Creatinine was 1.6 August of this year -Acute kidney injury combination of ATN from sepsis and prerenal from decreased oral intake: Slow to respond Decrease IV fluids to 50 mL an hour. Follow labs -Hyperlipidemia 40 mg Lipitor daily -Hypothyroid Synthroid 150 g daily -Obstructive status sleep apnea does not use CPAP -Obesity BMI 30.2 IV cefepime. DC Zithromax. IV fluids to 50 mL an hour. Have the patient sit up in a chair. Encourage oral intake. Repeat labs. Check for influenza AB/COVID with PCR. Placed in isolation. Discussed with patient and nurse. Total time spent today about 40 minutes with over 20 minutes of discussion.
[2021-02-12 20:59] LABS: Glucose,Whole Blood 113 mg/dL (75-99)
[2021-02-12] MEDS: ENOXAPARIN 40 MG/0.4 ML SYRINGE SQ SCH (21:53)
[2021-02-13] MEDS ORDERED: METOPROLOL TARTRATE 25 MG TAB PO ONE
[2021-02-13] MEDS ORDERED: amLODIPine 5 MG TAB PO ONE
[2021-02-13] MEDS: SODIUM CHLORIDE 0.9% 1,000 ML IV SCH (00:31)
[2021-02-13 07:06] LABS: Basophils % (A) 0 %; Eosinophils # (A) 0.1 k/uL (0-0.7); Eosinophils % (A) 2 %; HCT 30.2 % (34.0-46.0); HGB 9.6 gm/dL (11.4-16.0); Lymphocytes # (A) 1.1 k/uL (1.0-4.8); Lymphocytes % (A) 21 %; MCH 31.3 pg (25.0-35.0); MCHC 31.6 g/dL (31.0-37.0); MCV 99.1 fL (80.0-100.0); Monocytes # (A) 0.3 k/uL (0-1.0); Monocytes % (A) 6 %; Neutrophils # (A) 3.5 k/uL (1.3-7.7); Neutrophils % (A) 68 %; Platelet Count 266 k/uL (150-450); RBC 3.05 m/uL (3.80-5.40); RDW 13.5 % (11.5-15.5); WBC 5.2 k/uL (3.8-10.6)
[2021-02-13 07:08] LABS: Glucose,Whole Blood 112 mg/dL (75-99)
[2021-02-13 07:21] LABS: African American GFR (CKD) 43 (>60 ml/min/1.73 sqM); Anion Gap 7 mmol/L; Blood Urea Nitrogen 30 mg/dL (7-17); Carbon Dioxide 24 mmol/L (22-30); Chloride 114 mmol/L (98-107); Glucose 110 mg/dL (74-99); Non-African American GFR(CKD) 37 (>60 ml/min/1.73 sqM); Potassium 3.7 mmol/L (3.5-5.1); Sodium 145 mmol/L (137-145)
[2021-02-13] MEDS: INSULIN ASPART (NovoLOG) 100 UNIT/ML VIAL SQ SCH ×4 (07:22→20:48)
[2021-02-13] MEDS: CEFEPIME 1 GM in SODIUM CHLORIDE 0.9% 50 ML IVPB SCH (08:34)
[2021-02-13] MEDS: CLOPIDOGREL 75 MG TAB PO SCH (08:42)
[2021-02-13] MEDS: ENOXAPARIN 40 MG/0.4 ML SYRINGE SQ SCH (08:42)
[2021-02-13] MEDS: ISOSORBIDE MONONITRATE ER 30 MG TAB.ER.24H PO SCH (08:42)
[2021-02-13] MEDS: allopurinoL 100 MG TAB PO SCH (08:42)
[2021-02-13] MEDS: PANTOPRAZOLE 40 MG TABLET PO SCH (08:42)
[2021-02-13] MEDS: ATORVASTATIN 40 MG TAB PO SCH (08:42)
[2021-02-13] MEDS: CITALOPRAM HYDROBROMIDE 20 MG TAB PO SCH (08:43)
[2021-02-13] MEDS: LEVOTHYROXINE 75 MCG TAB PO SCH (08:43)
[2021-02-13] MEDS: METOPROLOL SUCCINATE (ER) 25 MG TAB.ER.24H PO SCH (08:43)
[2021-02-13] MEDS ORDERED: ERGOCALCIFEROL 1,250 MCG (50,000 IU) CAPSULE PO SCH (09:00)
[2021-02-13 10:15] LABS: C Reactive Protein 20.8 mg/dL (<1.0)
[2021-02-13] MEDS ORDERED: METOPROLOL TARTRATE 25 MG TAB PO STA (11:33)
[2021-02-13 11:47] LABS: Glucose,Whole Blood 109 mg/dL (75-99)
[2021-02-13] MEDS: CHLORTHALIDONE 25 MG TAB PO SCH (12:30)
--- NOTE | 2021-02-13 13:30 | P.PN ---
Progress Note - Text Progress Note Date: 02/13/21 Chief Complaint: Cough History of presenting complaint: This is a pleasant 70-year-old patient of Dr. Moore. Chronic stable medical conditions include coronary artery disease with stent/bypass, diabetes, hypertension, hyperlipidemia, hypothyroid, obstructive sleep apnea does not use CPAP. stent to LAD in 2017. Mitral valve repair for severe mitral regurgitation Patient presents with increasing shortness of breath edema some chills. No cough. No sore throat. No headache. Edema is significant. Always uses 3 pillows. presents with to 3 days of cough that is dry. Decreased appetite. Fever. Dizzy diet. Rundown. No wheezing. No chest pain Admitted with right lower lobe pneumonia, ATN from sepsis. Started IV fluids, IV cefepime. 02/12/2021: Feels a bit better. Poor taste. Decreased appetite.. Dry cough. No fever. COVID PCR ordered. Put in isolation. Continue IV cefepime. Blood cultures coming back positive. Contaminant with Staphylococcus epidermidis. 02/13/2021: Breathing better. Awaiting COVID 19 PCR results. Renal function improving. IV fluids at 50 mL an hour. We'll stop that tonight. IV cefepime. Does not have much of her taste. Decreased appetite. Blood pressures running in systolics 180. Amlodipine 5 mg added. Change Lopressor to 50 mg twice a day. Review of systems: Was done for constitutional, cardiovascular, GI, pulmonary. relevant finding as above Active Medications Acetaminophen (Acetaminophen Tab 325 Mg Tab) 650 mg PO Q6H PRN PRN Reason: Fever Allopurinol (Allopurinol 100 Mg Tab) 200 mg PO DAILY [facility] Last Admin: 02/13/21 08:42 Dose: 200 mg Documented by: Amlodipine Besylate (Amlodipine 5 Mg Tab) 5 mg PO [facility] Atorvastatin Calcium (Atorvastatin 40 Mg Tab) 40 mg PO DAILY [facility] Last Admin: 02/13/21 08:42 Dose: 40 mg Documented by: Chlorthalidone (Chlorthalidone 25 Mg Tab) 25 mg PO DAILY [facility] Last Admin: 02/13/21 12:30 Dose: 25 mg Documented by: Citalopram Hydrobromide (Citalopram Hydrobromide 20 Mg Tab) 20 mg PO DAILY [facility] Last Admin: 02/13/21 08:43 Dose: 20 mg Documented by: Clopidogrel Bisulfate (Clopidogrel 75 Mg Tab) 75 mg PO DAILY [facility] Last Admin: 02/13/21 08:42 Dose: 75 mg Documented by: Enoxaparin Sodium (Enoxaparin 40 Mg/0.4 Ml Syringe) 40 mg SQ DAILY [facility] Last Admin: 02/13/21 08:42 Dose: 40 mg Documented by: Ergocalciferol (Ergocalciferol 1,250 Mcg (50,000 Iu) Capsule) 1,250 mcg PO WE [facility] Last Admin: 02/13/21 08:43 Dose: 1,250 mcg Documented by: Sodium Chloride (Saline 0.9%) 1,000 mls @ 50 mls/hr IV .Q20H [facility] Last Admin: 02/13/21 00:31 Dose: 50 mls/hr Documented by: Cefepime HCl 1 gm/ Sodium (Chloride) 50 mls @ 12.5 mls/hr IVPB Q12HR [facility] Last Admin: 02/13/21 08:34 Dose: 12.5 mls/hr Documented by: Insulin Aspart (Insulin Aspart (Novolog) 100 Unit/Ml Vial) 0 unit SQ ACHS [facility]; Protocol Last Admin: 02/13/21 11:56 Dose: Not Given Documented by: Isosorbide Mononitrate (Isosorbide Mononitrate Er 30 Mg Tab.Er.24h) 30 mg PO DAILY [facility] Last Admin: 02/13/21 08:42 Dose: 30 mg Documented by: Levothyroxine Sodium (Levothyroxine 75 Mcg Tab) 150 mcg PO DAILY@0730 [facility] Last Admin: 02/13/21 08:43 Dose: 150 mcg Documented by: Metoprolol Tartrate (Metoprolol Tartrate 50 Mg Tab) 50 mg PO BID [facility] Miscellaneous Information (Pneumonia Protocol Utilized 1 Each Misc) 1 each PO ONCE PRN PRN Reason: Per Protocol Pantoprazole Sodium (Pantoprazole 40 Mg Tablet) 40 mg PO DAILY [facility] Last Admin: 02/13/21 08:42 Dose: 40 mg Documented by: Past medical history to include: Coronary artery disease with stent/bypass, mitral valve repair, CHF, diabetes, hyperlipidemia, hypertension, obstructive sleep apnea does not use CPAP, hypothyroid, Social history: Lives with . No smoking or alcohol Physical examination: VITAL SIGNS: 98.3, 63, 18, 188/75, 97% room air GENERAL: Reclining in bed, awake, comfortable EYES: Pupils equal. Conjunctiva normal. HEENT: External appearance of nose and ears normal, oral cavity grossly normal. NECK: JVD possibly raise; masses not palpable. HEART: First and second heart sounds are normal; some edema LUNGS: Respiratory rate increased; decreased breath sounds. ABDOMEN: Soft, nontender, liver spleen not palpable, no masses palpable. PSYCH: [Alert and oriented x3; mood and affect tired Investigations February 13: White count 5.2 hemoglobin 9.6 d-dimer 1.8 date potassium 3.7 BUN 30 creatinine 1.4 to CRP 20.8 February 12: Potassium 3.7 BUN 52 creatinine 2.1 White count 14.9 hemoglobin 10.7 platelets 220 2133 potassium 4.1 BUN 60 creatinine 2.87 Lactic acid venous 2.2, repeat 1.3 Troponin I less than 0.0123 UA positive for leukoesterase, obesity 25 squamous epithelial cells 14 bacteria many. Coronavirus [PCR]: Not injected EKG tracing personally reviewed by me-ventricular pacemaker. Chest x-ray film personally reviewed by me-right lower lobe infiltrate Previous labs: BUN 33 creatinine 1.6 on July 2020 Assessment and plan: -Right lower lobe pneumonia, suspect gram-negative organism: Improving cefepime 1 g every 12. --chronic congestive heart failure exacerbation from systolic dysfunction EF 35- 40%, from underlying coronary artery disease, chronic stable Follow clinically -Moderate to severe tricuspid regurgitation, nontraumatic Follow clinically -Coronary artery with stent/bypass Toprol-XL, Lipitor 40 mg -Diabetes mellitus type 2, uncontrolled with hyperglycemia Subcu Levemir. Follow Accu-Cheks -Essential hypertension: Uncontrolled Start amlodipine 5 mg daily. Chlorthalidone 25 mg day. Lopressor 50 mg twice a day. DC Toprol-XL -Chronic kidney disease stage III from nephrosclerosis and diabetic nephropathy Creatinine was 1.6 August of this year -Acute kidney injury combination of ATN from sepsis and prerenal from decreased oral intake: Slow to respond Admission creatinine 2.87. Today 1.42. DC IV fluids later today. -Hyperlipidemia 40 mg Lipitor daily -Hypothyroid Synthroid 150 g daily -Obstructive status sleep apnea does not use CPAP -Obesity BMI 30.2 IV cefepime. DC IV fluids this evening. Add amlodipine 5 mg daily. Lopressor 50 mg twice a day. Stop Toprol-XL. Chlorthalidone 25 mg by mouth daily. Pending results of: 19 PCR. Pulse ox 97% room air. Increase activity.
[2021-02-13 16:48] LABS: Glucose,Whole Blood 146 mg/dL (75-99)
[2021-02-13 20:37] LABS: Glucose,Whole Blood 143 mg/dL (75-99)
[2021-02-13] MEDS: METOPROLOL TARTRATE 50 MG TAB PO SCH (20:48)
[2021-02-13] MEDS: CEFEPIME 2 GM in SODIUM CHLORIDE 0.9% 100 ML IVPB SCH (20:48)
[2021-02-13] MEDS ORDERED: amLODIPine 5 MG TAB PO SCH (21:00)
[2021-02-14 07:27] LABS: Glucose,Whole Blood 103 mg/dL (75-99)
[2021-02-14] MEDS: INSULIN ASPART (NovoLOG) 100 UNIT/ML VIAL SQ SCH ×4 (07:28→20:32)
[2021-02-14] MEDS: METOPROLOL TARTRATE 50 MG TAB PO SCH (07:33)
[2021-02-14] MEDS: LEVOTHYROXINE 75 MCG TAB PO SCH (07:33)
[2021-02-14] MEDS: PANTOPRAZOLE 40 MG TABLET PO SCH (07:33)
[2021-02-14] MEDS: ISOSORBIDE MONONITRATE ER 30 MG TAB.ER.24H PO SCH (07:33)
[2021-02-14] MEDS: ATORVASTATIN 40 MG TAB PO SCH (07:33)
[2021-02-14] MEDS: CHLORTHALIDONE 25 MG TAB PO SCH (07:33)
[2021-02-14] MEDS: allopurinoL 100 MG TAB PO SCH (07:33)
[2021-02-14] MEDS: CLOPIDOGREL 75 MG TAB PO SCH (07:34)
[2021-02-14] MEDS: ENOXAPARIN 40 MG/0.4 ML SYRINGE SQ SCH (07:34)
[2021-02-14] MEDS: CITALOPRAM HYDROBROMIDE 20 MG TAB PO SCH (07:34)
[2021-02-14] MEDS: CEFEPIME 2 GM in SODIUM CHLORIDE 0.9% 100 ML IVPB SCH (07:43)
[2021-02-14] MEDS ORDERED: METOPROLOL TARTRATE 25 MG TAB PO STA (11:27)
[2021-02-14 11:35] LABS: Glucose,Whole Blood 170 mg/dL (75-99)
[2021-02-14] MEDS ORDERED: LABETALOL 200 MG TAB PO STA (11:35)
[2021-02-14] MEDS: amLODIPine 5 MG TAB PO SCH ×2 (11:55→20:31)
[2021-02-14 12:35] LABS: HCT 32.8 % (34.0-46.0); HGB 10.7 gm/dL (11.4-16.0); MCH 31.8 pg (25.0-35.0); MCHC 32.6 g/dL (31.0-37.0); MCV 97.4 fL (80.0-100.0); Mean Platelet Volume 7.6; Platelet Count 356 k/uL (150-450); RBC 3.37 m/uL (3.80-5.40); WBC 7.6 k/uL (3.8-10.6)
[2021-02-14 12:50] LABS: African American GFR (CKD) 54 (>60 ml/min/1.73 sqM); Anion Gap 9 mmol/L; Blood Urea Nitrogen 20 mg/dL (7-17); Calcium 9.3 mg/dL (8.4-10.2); Carbon Dioxide 24 mmol/L (22-30); Chloride 110 mmol/L (98-107); Glucose 167 mg/dL (74-99); Non-African American GFR(CKD) 47 (>60 ml/min/1.73 sqM); Potassium 4.2 mmol/L (3.5-5.1); Sodium 143 mmol/L (137-145)
--- NOTE | 2021-02-14 14:33 | P.PN ---
Progress Note - Text Progress Note Date: 02/14/21 Chief Complaint: Cough History of presenting complaint: This is a pleasant 70-year-old patient of Dr. Moore. Chronic stable medical conditions include coronary artery disease with stent/bypass, diabetes, hypertension, hyperlipidemia, hypothyroid, obstructive sleep apnea does not use CPAP. stent to LAD in 2017. Mitral valve repair for severe mitral regurgitation Patient presents with increasing shortness of breath edema some chills. No cough. No sore throat. No headache. Edema is significant. Always uses 3 pillows. presents with to 3 days of cough that is dry. Decreased appetite. Fever. Dizzy diet. Rundown. No wheezing. No chest pain Admitted with right lower lobe pneumonia, ATN from sepsis. Started IV fluids, IV cefepime. 02/12/2021: Feels a bit better. Poor taste. Decreased appetite.. Dry cough. No fever. COVID PCR ordered. Put in isolation. Continue IV cefepime. Blood cultures coming back positive. Contaminant with Staphylococcus epidermidis. 02/13/2021: Breathing better. Awaiting COVID 19 PCR results. Renal function improving. IV fluids at 50 mL an hour. We'll stop that tonight. IV cefepime. Does not have much of her taste. Decreased appetite. Blood pressures running in systolics 180. Amlodipine 5 mg added. Change Lopressor to 50 mg twice a day. 02/14/2021: Breathing stable. Blood pressure is running r high. Lopressor discontinued. Increase amlodipine to 5 mg twice a day. Labetalol 300 mg twice a day. Discussed with patient. Review of systems: Was done for constitutional, cardiovascular, GI, pulmonary. relevant finding as above Active Medications Acetaminophen (Acetaminophen Tab 325 Mg Tab) 650 mg PO Q6H PRN PRN Reason: Fever Allopurinol (Allopurinol 100 Mg Tab) 200 mg PO DAILY [facility] Last Admin: 02/14/21 07:33 Dose: 200 mg Documented by: Amlodipine Besylate (Amlodipine 5 Mg Tab) 5 mg PO BID [facility] Last Admin: 02/14/21 11:55 Dose: 5 mg Documented by: Atorvastatin Calcium (Atorvastatin 40 Mg Tab) 40 mg PO DAILY [facility] Last Admin: 02/14/21 07:33 Dose: 40 mg Documented by: Cefdinir (Cefdinir 300 Mg Cap) 300 mg PO BID [facility] Chlorthalidone (Chlorthalidone 25 Mg Tab) 25 mg PO DAILY [facility] Last Admin: 02/14/21 07:33 Dose: 25 mg Documented by: Citalopram Hydrobromide (Citalopram Hydrobromide 20 Mg Tab) 20 mg PO DAILY [facility] Last Admin: 02/14/21 07:34 Dose: 20 mg Documented by: Clopidogrel Bisulfate (Clopidogrel 75 Mg Tab) 75 mg PO DAILY [facility] Last Admin: 02/14/21 07:34 Dose: 75 mg Documented by: Enoxaparin Sodium (Enoxaparin 40 Mg/0.4 Ml Syringe) 40 mg SQ DAILY [facility] Last Admin: 02/14/21 07:34 Dose: 40 mg Documented by: Ergocalciferol (Ergocalciferol 1,250 Mcg (50,000 Iu) Capsule) 1,250 mcg PO WE [facility] Last Admin: 02/13/21 08:43 Dose: 1,250 mcg Documented by: Insulin Aspart (Insulin Aspart (Novolog) 100 Unit/Ml Vial) 0 unit SQ [facility]; Protocol Last Admin: 02/14/21 11:55 Dose: 2 unit Documented by: Isosorbide Mononitrate (Isosorbide Mononitrate Er 30 Mg Tab.Er.24h) 30 mg PO DAILY [facility] Last Admin: 02/14/21 07:33 Dose: 30 mg Documented by: Labetalol HCl (Labetalol 100 Mg Tab) 300 mg PO BID [facility] Levothyroxine Sodium (Levothyroxine 75 Mcg Tab) 150 mcg PO DAILY@0730 [facility] Last Admin: 02/14/21 07:33 Dose: 150 mcg Documented by: Metoprolol Tartrate (Metoprolol Tartrate 25 Mg Tab) 75 mg PO BID [facility] Miscellaneous Information (Pneumonia Protocol Utilized 1 Each [facility]) 1 each PO ONCE PRN PRN Reason: Per Protocol Pantoprazole Sodium (Pantoprazole 40 Mg Tablet) 40 mg PO DAILY [facility] Last Admin: 02/14/21 07:33 Dose: 40 mg Documented by: Past medical history to include: Coronary artery disease with stent/bypass, mitral valve repair, CHF, diabetes, hyperlipidemia, hypertension, obstructive sleep apnea does not use CPAP, hypothyroid, Social history: Lives with . No smoking or alcohol Physical examination: VITAL SIGNS: 99.6, 65, 16, 186/80, 95% room air GENERAL: Reclining in bed, awake, comfortable EYES: Pupils equal. Conjunctiva normal. HEENT: External appearance of nose and ears normal, oral cavity grossly normal. NECK: JVD possibly raise; masses not palpable. HEART: First and second heart sounds are normal; some edema LUNGS: Respiratory rate increased; decreased breath sounds. ABDOMEN: Soft, nontender, liver spleen not palpable, no masses palpable. PSYCH: [Alert and oriented x3; mood and affect tired Investigations February 14: WBC 7.60 globin 10.7 potassium 4.2 BUN 20 creatinine 1.17 February 13: White count 5.2 hemoglobin 9.6 d-dimer 1.8 date potassium 3.7 BUN 30 creatinine 1.4 to CRP 20.8 February 12: Potassium 3.7 BUN 52 creatinine 2.1 White count 14.9 hemoglobin 10.7 platelets 220 2133 potassium 4.1 BUN 60 creatinine 2.87 Lactic acid venous 2.2, repeat 1.3 Troponin I less than 0.0123 UA positive for leukoesterase, obesity 25 squamous epithelial cells 14 bacteria many. Coronavirus [PCR]: Not injected EKG tracing personally reviewed by me-ventricular pacemaker. Chest x-ray film personally reviewed by me-right lower lobe infiltrate Previous labs: BUN 33 creatinine 1.6 on July 2020 Assessment and plan: -Right lower lobe pneumonia, suspect gram-negative organism: Improving cefepime 1 g every 12. Change to Omnicef 300 twice a day. --chronic congestive heart failure exacerbation from systolic dysfunction EF 35- 40%, from underlying coronary artery disease, chronic stable Follow clinically -Moderate to severe tricuspid regurgitation, nontraumatic Follow clinically -Coronary artery with stent/bypass Labetalol 300 mg twice a day, Lipitor 40 mg -Diabetes mellitus type 2, uncontrolled with hyperglycemia Subcu Levemir. Follow Accu-Cheks -Essential hypertension: Uncontrolled Increase amlodipine 5 mg bid. Chlorthalidone 25 mg day. Add labetalol 300 mg twice a day -Chronic kidney disease stage III from nephrosclerosis and diabetic nephropathy Creatinine was 1.6 August of this year -Acute kidney injury combination of ATN from sepsis and prerenal from decreased oral intake: Slow to respond Admission creatinine 2.87. Today 1.42. DC IV fluids later today. -Hyperlipidemia 40 mg Lipitor daily -Hypothyroid Synthroid 150 g daily -Obstructive status sleep apnea does not use CPAP -Obesity BMI 30.2 Increase amlodipine to 5 mg twice a day. Stop Lopressor. Labetalol 300 mg twice a day. DC IV cefepime. Omnicef 300 mg twice a day. Discussed with patient.
[2021-02-14 16:59] LABS: Glucose,Whole Blood 216 mg/dL (75-99)
[2021-02-14 20:29] LABS: Glucose,Whole Blood 223 mg/dL (75-99)
[2021-02-14] MEDS: METOPROLOL TARTRATE 25 MG TAB PO SCH (20:31)
[2021-02-14] MEDS: CEFDINIR 300 MG CAP PO SCH (20:32)
[2021-02-14] MEDS: LABETALOL 100 MG TAB PO SCH (22:16)
[2021-02-15 07:17] LABS: Glucose,Whole Blood 122 mg/dL (75-99)
[2021-02-15] MEDS: INSULIN ASPART (NovoLOG) 100 UNIT/ML VIAL SQ SCH ×2 (07:21→12:38)
[2021-02-15] MEDS: ISOSORBIDE MONONITRATE ER 30 MG TAB.ER.24H PO SCH (07:28)
[2021-02-15] MEDS: ATORVASTATIN 40 MG TAB PO SCH (07:28)
[2021-02-15] MEDS: CEFDINIR 300 MG CAP PO SCH (07:28)
[2021-02-15] MEDS: CHLORTHALIDONE 25 MG TAB PO SCH (07:28)
[2021-02-15] MEDS: allopurinoL 100 MG TAB PO SCH (07:28)
[2021-02-15] MEDS: ENOXAPARIN 40 MG/0.4 ML SYRINGE SQ SCH (07:29)
[2021-02-15] MEDS: LEVOTHYROXINE 75 MCG TAB PO SCH (07:29)
[2021-02-15] MEDS: PANTOPRAZOLE 40 MG TABLET PO SCH (07:29)
[2021-02-15] MEDS: CLOPIDOGREL 75 MG TAB PO SCH (07:29)
[2021-02-15] MEDS: amLODIPine 5 MG TAB PO SCH (07:29)
[2021-02-15] MEDS: CITALOPRAM HYDROBROMIDE 20 MG TAB PO SCH (07:29)
[2021-02-15] MEDS: LABETALOL 100 MG TAB PO SCH (07:30)
[2021-02-15 09:01] VITALS: TEMP 98
[2021-02-15 09:19] VITALS: BP 129/69; PULSE 50; RESP 20
[2021-02-15] MEDS: METOPROLOL TARTRATE 25 MG TAB PO SCH (11:10)
[2021-02-15 11:13] LABS: Glucose,Whole Blood 184 mg/dL (75-99)
--- NOTE | 2021-02-15 15:40 | P.DS ---
Providers Date of admission: 02/10/21 17:12 Expected date of discharge: 02/15/21 Attending physician: Johnny Capone Primary care physician: Eduin Moore [facility] Hospital Course: Chief Complaint: Cough History of presenting complaint: This is a pleasant 70-year-old patient of Dr. Moore. Chronic stable medical conditions include coronary artery disease with stent/bypass, diabetes, hypertension, hyperlipidemia, hypothyroid, obstructive sleep apnea does not use CPAP. stent to LAD in 2017. Mitral valve repair for severe mitral regurgitation Patient presents with increasing shortness of breath edema some chills. No cough. No sore throat. No headache. Edema is significant. Always uses 3 pillows. presents with to 3 days of cough that is dry. Decreased appetite. Fever. Dizzy diet. Rundown. No wheezing. No chest pain Admitted with right lower lobe pneumonia, ATN from sepsis. Started IV fluids, IV cefepime. COVID PCR negative. Admission creatinine was 2.89. Creatinine did drop down to 1.17. Blood pressure medications were adjusted for blood pressure. Today: Care was discussed with the patient. Questions answered. He'll be sent home on increased dose of Lopressor and amlodipine. 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 Complete a short course of Omnicef Discussion and discharge planning more than 35 minutes Past medical history to include: Coronary artery disease with stent/bypass, mitral valve repair, CHF, diabetes, hyperlipidemia, hypertension, obstructive sleep apnea does not use CPAP, hypothyroid, Social history: Lives with . No smoking or alcohol Physical examination: VITAL SIGNS: 98, 55, 20, 129/60, 91% on room air GENERAL: Reclining in bed, awake, comfortable EYES: Pupils equal. Conjunctiva normal. HEENT: External appearance of nose and ears normal, oral cavity grossly normal. NECK: JVD possibly raise; masses not palpable. HEART: First and second heart sounds are normal; some edema LUNGS: Respiratory rate increased; decreased breath sounds. ABDOMEN: Soft, nontender, liver spleen not palpable, no masses palpable. PSYCH: [Alert and oriented x3; mood and affect tired Investigations February 15: White count 7.6-year-old globin 10.7 platelets 356 potassium 4.2 BUN 20 creatinine 1.17 White count 14.9 hemoglobin 10.7 platelets 220 2133 potassium 4.1 BUN 60 creatinine 2.87 Lactic acid venous 2.2, repeat 1.3 Troponin I less than 0.0123 UA positive for leukoesterase, obesity 25 squamous epithelial cells 14 bacteria many. Coronavirus [PCR]: Not injected EKG tracing personally reviewed by me-ventricular pacemaker. Chest x-ray film personally reviewed by me-right lower lobe infiltrate Previous labs: BUN 33 creatinine 1.6 on July 2020 Assessment and plan: -Right lower lobe pneumonia, suspect gram-negative organism: Improving cefepime 1 g every 12. Omnicef 300 twice a day.: A days --chronic congestive heart failure exacerbation from systolic dysfunction EF 35- 40%, from underlying coronary artery disease, chronic stable Resume Lasix 40 mg a day. -Moderate to severe tricuspid regurgitation, nontraumatic Follow clinically -Coronary artery with stent/bypass Labetalol 300 mg twice a day, Lipitor 40 mg -Diabetes mellitus type 2, uncontrolled with hyperglycemia Subcu Levemir. Follow Accu-Cheks -Essential hypertension: Uncontrolled amlodipine 5 mg bid. Lasix 40 mg a day.. Lopressor 100 mg twice a day -Chronic kidney disease stage III from nephrosclerosis and diabetic nephropathy Creatinine was 1.6 August of this year -Acute kidney injury combination of ATN from sepsis and prerenal from decreased oral intake: Slow to respond Admission creatinine 2.87. now 1.17. -Hyperlipidemia 40 mg Lipitor daily -Hypothyroid Synthroid 150 g daily -Obstructive status sleep apnea does not use CPAP -Obesity BMI 30.2 Disposition: Home Patient Condition at Discharge: Fair Plan - Discharge Summary Discharge Rx Participant: No New Discharge Prescriptions: New Chlorthalidone [Hygroton] 25 mg PO DAILY #30 tab Metoprolol Tartrate [Lopressor] 100 mg PO BID #60 tab amLODIPine [Norvasc] 10 mg PO HS #30 tablet Cefdinir [Omnicef] 300 mg PO BID #6 cap Continue Citalopram Hydrobromide [CeleXA] 20 mg PO DAILY tab Pantoprazole [Protonix] 40 mg PO DAILY allopurinoL [Zyloprim] 300 mg PO DAILY Atorvastatin [Lipitor] 40 mg PO DAILY tab Clopidogrel [Plavix] 75 mg PO DAILY tab Ergocalciferol [Vitamin D2 (1250 Mcg = 71876 Iu)] 1,250 mcg PO WE Levothyroxine Sodium [Synthroid] 150 mcg PO DAILY Insulin Detemir (Levemir) [Levemir] 10 unit SQ HS Isosorbide Mononitrate ER [Imdur] 30 mg PO DAILY Discontinued Metoprolol Succinate (ER) [Toprol XL] 25 mg PO DAILY tab.er.24h Furosemide [Lasix] 40 mg PO DAILY Discharge Medication List Citalopram Hydrobromide [CeleXA] 20 mg PO DAILY tab 08/14/16 [Rx] Pantoprazole [Protonix] 40 mg PO DAILY 07/25/17 [History] allopurinoL [Zyloprim] 300 mg PO DAILY 11/26/18 [History] Atorvastatin [Lipitor] 40 mg PO DAILY tab 10/15/19 [Rx] Clopidogrel [Plavix] 75 mg PO DAILY tab 10/15/19 [Rx] Ergocalciferol [Vitamin D2 (1250 Mcg = 56734 Iu)] 1,250 mcg PO WE 02/10/21 [History] Insulin Detemir (Levemir) [Levemir] 10 unit SQ HS 02/10/21 [History] Isosorbide Mononitrate ER [Imdur] 30 mg PO DAILY 02/10/21 [History] Levothyroxine Sodium [Synthroid] 150 mcg PO DAILY 02/10/21 [History] Cefdinir [Omnicef] 300 mg PO BID #6 cap 02/15/21 [Rx] Chlorthalidone [Hygroton] 25 mg PO DAILY #30 tab 02/15/21 [Rx] Metoprolol Tartrate [Lopressor] 100 mg PO BID #60 tab 02/15/21 [Rx] amLODIPine [Norvasc] 10 mg PO HS #30 tablet 02/15/21 [Rx] Follow up Appointment(s)/Referral(s): Eduin Moore MD [Primary Care Provider] - 1-2 days Fausto Nagy MD [STAFF PHYSICIAN] - 02/19/21 9:45 am (STRESS TEST ) Patient Instructions/Handouts: How to Take a Blood Pressure (DC), Chronic Hypertension (DC) Discharge Disposition: HOME SELF-CARE
== END 2021-02-15 13:18 | disposition home or self-care (01) | DRG 871 ==
LOC: EC 15:11 → 4SSUR 17:12
PROVIDERS: ADMIT Hospitalist; ATTEND Hospitalist
DX: A41.9 Sepsis, unspecified organism (principal); J15.6 Pneumonia due to other Gram-negative bacteria; I50.23 Acute on chronic systolic (congestive) heart failure; N17.0 Acute kidney failure with tubular necrosis; I13.0 Hypertensive heart and chronic kidney disease with heart failure and stage 1 through stage 4 chronic kidney disease, or unspecified chronic kidney disease; E03.9 Hypothyroidism, unspecified; E11.65 Type 2 diabetes mellitus with hyperglycemia; N18.30 Chronic kidney disease, stage 3 unspecified; E66.9 Obesity, unspecified; Z68.30 Body mass index [BMI] 30.0-30.9, adult; E78.5 Hyperlipidemia, unspecified; E86.0 Dehydration; G47.33 Obstructive sleep apnea (adult) (pediatric); I25.10 Atherosclerotic heart disease of native coronary artery without angina pectoris; I25.2 Old myocardial infarction; I08.1 Rheumatic disorders of both mitral and tricuspid valves; R09.02 Hypoxemia; Z20.822 Contact with and (suspected) exposure to COVID-19; Z78.9 Other specified health status; Z79.02 Long term (current) use of antithrombotics/antiplatelets; Z79.4 Long term (current) use of insulin; Z79.890 Hormone replacement therapy; Z79.899 Other long term (current) drug therapy; Z82.49 Family history of ischemic heart disease and other diseases of the circulatory system; Z83.3 Family history of diabetes mellitus; Z95.5 Presence of coronary angioplasty implant and graft; E11.22 Type 2 diabetes mellitus with diabetic chronic kidney disease
CPT/HCPCS: 36415; 71045; 71046; 76705; 80048; 80053; 81001; 83605; 84145; 84484; 85025; 85027; 85379; 85610; 85730; 86140; 87040; 87086; 87635; 93005; 96361; 96365; 96375; 99285

== ENCOUNTER → 2021-02-22 | Outpatient (CLI) | payer MEDICARE ==
--- NOTE | 2021-02-22 14:26 | XR ---
EXAMINATION TYPE: XR chest 2V DATE OF EXAM: 02/22/2021 COMPARISON: Chest x-ray 02/11/2021 HISTORY: J 18.9 TECHNIQUE: Frontal and lateral views of the chest are obtained. FINDINGS: There is persistent abnormal attenuation at the right lung base, blunting the right costop hrenic angle, obscured right hemidiaphragm. Heart remains enlarged. Generators present in the left pe ctoral region, there are leads in right atrium, right ventricle, coronary sinus. No evident pneumotho rax. Patient is post median sternotomy, left atrial appendage clip placement, mitral valve replacemen t. The osseous structures are intact. IMPRESSION: Basilar effusion and associated atelectasis, correlate to exclude pneumonia
== END | disposition home or self-care (01) ==
LOC: RADXRMAIN 12:08
PROVIDERS: ATTEND Physician Assistant
DX: J90 Pleural effusion, not elsewhere classified (principal); J98.11 Atelectasis
CPT/HCPCS: 71046

== ENCOUNTER → 2021-03-25 | Outpatient (CLI) | payer MEDICARE ==
--- NOTE | 2021-03-25 12:24 | XR ---
EXAMINATION TYPE: XR chest 2V DATE OF EXAM: 03/25/2021 COMPARISON: 02/22/2021 TECHNIQUE: PA and lateral views submitted. HISTORY: Cough FINDINGS: Postsurgical change and cardiac device. Diffuse interstitial pattern with right-sided consolidation a nd pleural effusion. Hypertrophic and degenerative changes spine. IMPRESSION: 1. Right lower lobe infiltrate and small effusion correlate for pneumonia versus CHF.
--- NOTE | 2021-03-25 12:25 | XR ---
EXAMINATION TYPE: XR tibia fibula LT DATE OF EXAM: 03/25/2021 COMPARISON: NONE HISTORY: Pain TECHNIQUE: Two views are submitted. FINDINGS: The osseous structures are intact. The joint spaces are preserved. Vascular calcifications noted. T here is calcaneal spurs noted. IMPRESSION: 1. No acute osseous abnormality.
== END | disposition home or self-care (01) ==
LOC: RADXRMAIN 11:54
PROVIDERS: ATTEND Physician Assistant
DX: R91.8 Other nonspecific abnormal finding of lung field (principal); J90 Pleural effusion, not elsewhere classified
CPT/HCPCS: 71046

== ENCOUNTER → 2021-06-04 | Outpatient (CLI) | payer MEDICARE ==
--- NOTE | 2021-06-04 15:10 | CT ---
EXAMINATION TYPE: CT brain wo con DATE OF EXAM: 06/04/2021 COMPARISON: CT dated 10/08/2019 HISTORY: Dizziness, sense of falling CT DLP: 981.7 mGycm Automated exposure control for dose reduction was used. TECHNIQUE: CT scan of the brain is performed without IV contrast administration. FINDINGS: Partial empty sella, with ballooning of the sella turcica. Left pontine hypodensity, possibly artifac tual. No acute intracranial hemorrhage. No gross acute cortical infarct. No midline shift, herniation or ventriculectomy. Unremarkable monahan-white matter differentiation, basal cisterns and CP angles. No gross space-occupyin g lesion, vasogenic edema or mass effect. No gross orbital abnormality. Clear visualized paranasal sinuses and mastoid air cells. Osteopenia. IMPRESSION: No acute intracranial abnormality or gross space-occupying lesion by this nonenhanced CT scan. Incide ntal findings as described above.
--- NOTE | 2021-06-05 11:28 | P.ARTDOP ---
Arterial Doppler LOWER EXTREMITY ARTERIAL DOPPLER: DATE OF SERVICE: 06/04/2021 Reason for study: Bilateral pedal edema. Doppler waveforms: Multiphasic bilaterally throughout. Digital waveforms are excellent.. Pulse volume recording: []. Pressure gradients: None. Ankle-brachial indices: Cannot occlude. Toe brachial indices: 0.85 on the right, 0.77 on the left Impression: Normal perfusion pattern. Inability to occlude ankles could be related to calcific wall disease or significant edema. Neither is of hemodynamic significance..
== END | disposition home or self-care (01) ==
LOC: RADUSWWP 13:47
PROVIDERS: ATTEND Pediatrics
DX: R51.9 Headache, unspecified (principal); I73.9 Peripheral vascular disease, unspecified
CPT/HCPCS: 70450; 93922

== ENCOUNTER 2021-06-11 13:11 | Inpatient (IN) | payer MEDICARE ==
[2021-06-11] MEDS ORDERED: FUROSEMIDE 10 MG/ML 4 ML VIAL IV STA (13:16)
--- NOTE | 2021-06-11 13:21 | ED ---
General Adult HPI - General Stated complaint: MELISA Time Seen by Provider: 06/11/21 13:11 Source: patient, RN notes reviewed, old records reviewed - History of Present Illness Initial comments: This is a 70-year-old female presents emergency department with past medical history significant for congestive heart failure. Patient comes in today complaining shortness of breath which is been getting worse last 2 days. Patient states she also has had an increased cough and some sputum production. Patient states she's gotten a COVID vaccine Motrin a but did not get the posterior. Patient states her swelling in the legs arms is a little worse than normal. Patient denies any chest pain or palpitations. Patient denies any abdo vito pain patient denies nausea vomiting diarrhea. Patient denies any fevers. Patient denies any headache patient denies lightheadedness or dizziness. Paramedics state that the patient's pulse ox was in the 80s and doctor's office today. Patient on arrival is on room air and she is at 87% and this is after she received treatments in the ambulance. - Related Data Home Medications Medication Instructions Recorded Confirmed Pantoprazole [Protonix] 40 mg PO DAILY 07/25/17 06/11/21 allopurinoL [Zyloprim] 300 mg PO DAILY 11/26/18 06/11/21 Ergocalciferol [Vitamin D2 (1250 1,250 mcg PO WE 02/10/21 06/11/21 Mcg = 97086 Iu)] Insulin Detemir (Levemir) [Levemir] 10 unit SQ HS 02/10/21 06/11/21 Isosorbide Mononitrate ER [Imdur] 30 mg PO DAILY 02/10/21 06/11/21 Magnesium Oxide [Razo] 500 mg PO DAILY 06/11/21 06/11/21 Metoprolol Tartrate [Lopressor] 100 mg PO BID-W/MEALS 06/11/21 06/11/21 Multivit/Folic Acid/Vit K1 1 tab PO DAILY 06/11/21 06/11/21 [One-A-Day Women's 50 Plus Tab] amLODIPine [Norvasc] 5 mg PO DAILY 06/11/21 06/11/21 hydrALAZINE HCL [Apresoline] 50 mg PO TID-W/MEALS 06/11/21 06/11/21 lisinopriL [Zestril] 5 mg PO DAILY 06/11/21 06/11/21 Previous Rx's Medication Instructions Recorded Citalopram Hydrobromide [CeleXA] 20 mg PO DAILY tab 08/14/16 Atorvastatin [Lipitor] 40 mg PO DAILY tab 10/15/19 Clopidogrel [Plavix] 75 mg PO DAILY tab 10/15/19 Furosemide [Lasix] 40 mg PO DAILY #1 tablet 02/15/21 Allergies Allergy/AdvReac Type Severity Reaction Status Date / Time No Known Allergies Allergy Verified 06/11/21 15:21 Review of Systems ROS Statement: Those systems with pertinent positive or pertinent negative responses have been documented in the HPI. ROS Other: All systems not noted in ROS Statement are negative. Past Medical History Past Medical History: Coronary Artery Disease (CAD), Chest Pain / Angina, Heart Failure, Diabetes Mellitus, Eye Disorder, Hyperlipidemia, Hypertension, Myocardial Infarction ([place]), Renal Disease, Sleep Apnea/CPAP/BIPAP, Thyroid Disorder Additional Past Medical History / Comment(s): Right cataract. CAD with Stent to Proximal LAD 03/31/2015. Haven't been wearing. Recent admit w/ CP, UTI. Cardiac stent to proximal LAD 2016 Last Myocardial Infarction Date:: 03/31/2015 History of Any Multi-Drug Resistant Organisms: None Reported Past Surgical History: Breast Surgery, Heart Catheterization, Heart Catheterization With Stent, Pacemaker Additional Past Surgical History / Comment(s): Left breast bx-neg, buttocks sx- pt stated:" they told me I had gangrene and had sx to remove", lt cataract, Heart Cath 11/18/16. Past Anesthesia/Blood Transfusion Reactions: No Reported Reaction Date of Last Stent Placement:: 2014 Past Psychological History: No Psychological Hx Reported Additional Psychological History / Comment(s): Pt resides with her spouse and 2 adult children. Pt is independent. Smoking Status: Never smoker Past Alcohol Use History: None Reported Past Drug Use History: None Reported - Past Family History Father Family Medical History: Unable to Obtain Additional Family Medical History / Comment(s): Father from motor vehicle accident Mother Family Medical History: Diabetes Mellitus, Hypertension General Exam - General Exam Comments Initial Comments: GENERAL: Patient is well-developed and well-nourished. Patient is nontoxic and well- hydrated and is in mild distress. ENT: Neck is soft and supple. No significant lymphadenopathy is noted. Oropharynx is clear. Moist mucous membranes. Neck has full range of motion without eliciting any pain. EYES: The sclera were anicteric and conjunctiva were pink and moist. Extraocular movements were intact and pupils were equal round and reactive to light. Eyelids were unremarkable. PULMONARY: Unlabored respirations. Patient has bilateral crackles worse on the right than the left. Patient also has expiratory wheezing. CARDIOVASCULAR: There is a regular rate and rhythm without any murmurs gallops or rubs. ABDOMEN: Soft and nontender with normal bowel sounds. SKIN: Skin is clear with no lesions or rashes and otherwise unremarkable. NEUROLOGIC: Patient is alert and oriented x3. Cranial nerves II through XII are grossly intact. Motor and sensory are also intact. Normal speech, volume and content. Symmetrical smile. MUSCULOSKELETAL: Normal extremities with adequate strength and full range of motion. Patient has 2+ edema bilateral she does have some edema in her arms as well. LYMPHATICS: No significant lymphadenopathy is noted PSYCHIATRIC: Normal psychiatric evaluation. Course Vital Signs 06/11/21 06/11/21 06/11/21 13:20 13:22 13:30 Temperature 97.8 F Pulse Rate 51 L Respiratory 24 34 H Rate Blood Pressure 140/67 O2 Sat by Pulse 87 L 95 Oximetry 06/11/21 06/11/21 06/11/21 14:00 14:15 16:40 Temperature Pulse Rate 49 L 49 L Respiratory 22 20 Rate Blood Pressure 134/76 143/90 150/96 O2 Sat by Pulse 96 95 Oximetry Medical Decision Making - Medical Decision Making EKG shows a paced rhythm at 49 bpm IA interval is 222 QRS is 156 QT intervals 549 QTC is 521. Patient's EKG shows no ST segment elevation or depression. Chest x-ray shows congestive heart failure. - Lab Data Result diagrams: 06/11/21 14:11 06/11/21 14:11 Lab Results 06/11/21 06/11/21 06/11/21 Range/Units 13:49 14:11 14:11 WBC 6.4 (3.8-10.6) k/uL RBC 3.93 (3.80-5.40) m/uL Hgb 12.1 (11.4-16.0) gm/dL Hct 38.2 (34.0-46.0) % MCV 97.1 (80.0-100.0) fL MCH 30.9 (25.0-35.0) pg MCHC 31.8 (31.0-37.0) g/dL RDW 16.5 H (11.5-15.5) % Plt Count 215 (150-450) k/uL MPV 8.7 Neutrophils % 75 % Lymphocytes % 12 % Monocytes % 9 % Eosinophils % 2 % Basophils % 0 % Neutrophils # 4.8 (1.3-7.7) k/uL Lymphocytes # 0.8 L (1.0-4.8) k/uL Monocytes # 0.6 (0-1.0) k/uL Eosinophils # 0.1 (0-0.7) k/uL Basophils # 0.0 (0-0.2) k/uL Hypochromasia Slight Anisocytosis Slight PT 11.4 (9.0-12.0) sec INR 1.1 (<1.2) APTT 23.1 (22.0-30.0) sec Sodium (137-145) mmol/L Potassium (3.5-5.1) mmol/L Chloride (98-107) mmol/L Carbon Dioxide (22-30) mmol/L Anion Gap mmol/L BUN (7-17) mg/dL Creatinine (0.52-1.04) mg/dL Est GFR (CKD-EPI)AfAm (>60 ml/min/1.73 sqM) Est GFR (CKD-EPI)NonAf (>60 ml/min/1.73 sqM) Glucose (74-99) mg/dL Plasma Lactic Acid Tye (0.7-2.0) mmol/L Calcium (8.4-10.2) mg/dL Magnesium (1.6-2.3) mg/dL Total Bilirubin (0.2-1.3) mg/dL AST (14-36) U/L ALT (4-34) U/L Alkaline Phosphatase (38-126) U/L Troponin I (0.000-0.034) ng/mL Total Protein (6.3-8.2) g/dL Albumin (3.5-5.0) g/dL Coronavirus (PCR) Not Detected (Not Detectd) 06/11/21 06/11/21 06/11/21 Range/Units 14:11 14:11 14:11 WBC (3.8-10.6) k/uL RBC (3.80-5.40) m/uL Hgb (11.4-16.0) gm/dL Hct (34.0-46.0) % MCV (80.0-100.0) fL MCH (25.0-35.0) pg MCHC (31.0-37.0) g/dL RDW (11.5-15.5) % Plt Count (150-450) k/uL MPV Neutrophils % % Lymphocytes % % Monocytes % % Eosinophils % % Basophils % % Neutrophils # (1.3-7.7) k/uL Lymphocytes # (1.0-4.8) k/uL Monocytes # (0-1.0) k/uL Eosinophils # (0-0.7) k/uL Basophils # (0-0.2) k/uL Hypochromasia Anisocytosis PT (9.0-12.0) sec INR (<1.2) APTT (22.0-30.0) sec Sodium 140 (137-145) mmol/L Potassium 4.9 (3.5-5.1) mmol/L Chloride 110 H (98-107) mmol/L Carbon Dioxide 16 L (22-30) mmol/L Anion Gap 14 mmol/L BUN 41 H (7-17) mg/dL Creatinine 2.16 H (0.52-1.04) mg/dL Est GFR (CKD-EPI)AfAm 26 (>60 ml/min/1.73 sqM) Est GFR (CKD-EPI)NonAf 22 (>60 ml/min/1.73 sqM) Glucose 119 H (74-99) mg/dL Plasma Lactic Acid Tye 0.9 (0.7-2.0) mmol/L Calcium 9.0 (8.4-10.2) mg/dL Magnesium 2.3 (1.6-2.3) mg/dL Total Bilirubin 1.1 (0.2-1.3) mg/dL AST 40 H (14-36) U/L ALT 12 (4-34) U/L Alkaline Phosphatase 84 (38-126) U/L Troponin I 0.016 (0.000-0.034) ng/mL Total Protein 7.6 (6.3-8.2) g/dL Albumin 4.1 (3.5-5.0) g/dL Coronavirus (PCR) (Not Detectd) Disposition Clinical Impression: Systolic congestive heart failure Disposition: ADMITTED IP TO THIS HOSP Referrals: Eduin Moore MD [Primary Care Provider] - 1-2 days Time of Disposition: 17:08
[2021-06-11 14:43] LABS: Albumin 4.1 g/dL (3.5-5.0); Magnesium 2.3 mg/dL (1.6-2.3); Total Bilirubin 1.1 mg/dL (0.2-1.3); Total Protein 7.6 g/dL (6.3-8.2)
--- NOTE | 2021-06-11 14:43 | XR ---
EXAMINATION TYPE: XR chest 2V DATE OF EXAM: 06/11/2021 COMPARISON: Chest x-ray dated 03/25/2021 HISTORY: Difficulty breathing, dyspnea TECHNIQUE: Frontal and lateral views of the chest are obtained. FINDINGS: Patient is post median sternotomy, left atrial appendage clip placement, mitral valve repl acement. Generators present in left pectoral region, there are leads in the right atrium and ventricl e, coronary sinus. No evident pneumothorax. There is been interval development of patchy density with in the right lung. Perihilar vascular indistinctness is noted. The heart remains enlarged. Blunting o f the right costophrenic angle persists. IMPRESSION: Correlate for congestive heart failure, pneumonia.
[2021-06-11 14:57] LABS: Potassium 4.9 mmol/L (3.5-5.1)
[2021-06-11 15:20] LABS: Anisocytosis Slight; Basophils % (A) 0 %; Eosinophils # (A) 0.1 k/uL (0-0.7); Eosinophils % (A) 2 %; HCT 38.2 % (34.0-46.0); HGB 12.1 gm/dL (11.4-16.0); Hypochromasia Slight; Lymphocytes # (A) 0.8 k/uL (1.0-4.8); Lymphocytes % (A) 12 %; MCH 30.9 pg (25.0-35.0); MCHC 31.8 g/dL (31.0-37.0); MCV 97.1 fL (80.0-100.0); Mean Platelet Volume 8.7; Monocytes # (A) 0.6 k/uL (0-1.0); Monocytes % (A) 9 %; Neutrophils # (A) 4.8 k/uL (1.3-7.7); Neutrophils % (A) 75 %; Platelet Count 215 k/uL (150-450); RBC 3.93 m/uL (3.80-5.40); RDW 16.5 % (11.5-15.5); WBC 6.4 k/uL (3.8-10.6)
[2021-06-11 15:24] LABS: INR 1.1 (<1.2); Partial Thromboplastin Time 23.1 sec (22.0-30.0); Prothrombin Time 11.4 sec (9.0-12.0)
[2021-06-11] MEDS ORDERED: NITROGLYCERIN OINT 1 INCH/GM PACKET TOPICAL SCH (18:00)
[2021-06-11 20:15] LABS: Influenza A Not Detected (Not Detectd); Influenza B Not Detected (Not Detectd)
--- NOTE | 2021-06-11 20:53 | P.HPIM ---
History of Present Illness H&P Date: 06/11/21 Chief Complaint: Short of breath History of presenting complaint: This is a pleasant 70-year-old patient of Dr. Moore. Chronic stable medical conditions include coronary artery disease with stent/bypass, diabetes, hypertension, hyperlipidemia, hypothyroid, obstructive sleep apnea does not use CPAP. stent to LAD in 2017. Mitral valve repair for severe mitral regurgitat ion Patient with 3 days not associated becoming increasingly short of breath. Congested cough. Chills. Noted some increasing swelling of lower extremity. Not really expectorating any phlegm. Tired rundown. Decreased appetite. Review of systems: GEN.: Tired, decreased appetite, chills EYES: None HEENT: None NECK: None RESPIRATORY: As above] CARDIOVASCULAR: No chest pain GASTROINTESTINAL: None GENITOURINARY: None MUSCULOSKELETAL: None LYMPHATICS: None HEMATOLOGICAL: None PSYCHIATRY: None NEUROLOGICAL: Anxious Past medical history to include: Coronary artery disease with stent/bypass, mitral valve repair, CHF, diabetes, hyperlipidemia, hypertension, obstructive sleep apnea does not use CPAP, hypothyroid, Social history: Lives with . No smoking or alcohol Physical examination: VITAL SIGNS: 97.8, 51, 34, 140/67, 87% on room air GENERAL: BMI 37.4, laying in bed, awake, short of breath. EYES: Pupils equal. Conjunctiva normal. HEENT: External appearance of nose and ears normal, oral cavity grossly normal. NECK: JVD possibly raised; masses not palpable. HEART: First and second heart sounds are normal; some edema. LUNGS: Respiratory rate increased; right basal coarse crackles. ABDOMEN: Soft, mild distention nontender, liver spleen not palpable, no masses palpable. PSYCH: Alert and oriented x3; mood and affect normall. MUSCULOSKELETAL:No Clubbing/cyanosis;muscles-grossly intact. Evidence of OA NEUROLOGICAL: Cranial nerves grossly intact; no facial asymmetry, power and sensation grossly intact. LYMPHATICS: No lymph nodes palpable in the axilla and neck Investigations White count 6.4 hemoglobin 12.1 platelets 215 pressure 4.9 bicarb 16 BUN 41 c reatinine 2.16 COVID-19: PCR: Detected Influenza type A type B RSV: Not detected EKG tracing personally reviewed by me-AV paced rhythm. Rate 50 Chest x-ray film personally reviewed by me-right basilar infiltrate Assessment and plan: -Right lower lobe pneumonia, suspect gram-negative organism: IV ceftriaxone 1 g every 12 -COVID-19 positive Vitamin C vitamin D zinc, dexamethasone -Acute hypoxic respiratory failure secondary to COVID-19 and pneumonia Supplement oxygen --Acute on chronic congestive heart failure exacerbation from systolic dysfunction EF 35-40%, from underlying coronary artery disease, IV Lasix -Moderate to severe tricuspid regurgitation, nontraumatic Follow clinically -Coronary artery with stent/bypass Metoprolol 100 mg twice a day, Lipitor 40 mg -Diabetes mellitus type 2, uncontrolled with hyperglycemia Subcu Levemir. Follow Accu-Cheks -Essential hypertension: Uncontrolled amlodipine 5 mg bid. Lasix 40 mg a day.. Lopressor 100 mg twice a day -Chronic kidney disease stage III from nephrosclerosis and diabetic nephropathy Creatinine was 1.6 August of this year -Acute kidney injury combination of ATN from pneumonia Admission creatinine 2.16. -Hyperlipidemia 40 mg Lipitor daily -Acute metabolic acidosis from chronic kidney disease Sodium bicarbonate -Hypothyroid Synthroid 150 g daily -Obstructive status sleep apnea does not use CPAP -Obesity BMI 37.4 IV ceftriaxone 1 g every 12, dexamethasone, vitamin C vitamin D, zinc. Patient to receive IV Lasix in the ER. Follow labs closely. Consultation to ID. Add sodium bicarbonate. Past Medical History Past Medical History: Coronary Artery Disease (CAD), Chest Pain / Angina, Heart Failure, Diabetes Mellitus, Eye Disorder, Hyperlipidemia, Hypertension, My ocardial Infarction ([place]), Renal Disease, Sleep Apnea/CPAP/BIPAP, Thyroid Disorder Additional Past Medical History / Comment(s): Right cataract. CAD with Stent to Proximal LAD 03/31/2015. Haven't been wearing. Recent admit w/ CP, UTI. Cardiac stent to proximal LAD 2016 Last Myocardial Infarction Date:: 03/31/2015 History of Any Multi-Drug Resistant Organisms: None Reported Past Surgical History: Breast Surgery, Heart Catheterization, Heart Catheterization With Stent, Pacemaker Additional Past Surgical History / Comment(s): Left breast bx-neg, buttocks sx- pt stated:" they told me I had gangrene and had sx to remove", lt cataract, Heart Cath 11/18/16. Past Anesthesia/Blood Transfusion Reactions: No Reported Reaction Date of Last Stent Placement:: 2014 Past Psychological History: No Psychological Hx Reported Additional Psychological History / Comment(s): Pt resides with her spouse and 2 adult children. Pt is independent. Smoking Status: Never smoker Past Alcohol Use History: None Reported Past Drug Use History: None Reported - Past Family History Father Family Medical History: Unable to Obtain Additional Family Medical History / Comment(s): Father from motor vehicle accident Mother Family Medical History: Diabetes Mellitus, Hypertension Medications and Allergies Home Medications Medication Instructions Recorded Confirmed Type Citalopram Hydrobromide [CeleXA] 20 mg PO DAILY tab 08/14/16 06/11/21 Rx Pantoprazole [Protonix] 40 mg PO DAILY 07/25/17 06/11/21 History allopurinoL [Zyloprim] 300 mg PO DAILY 11/26/18 06/11/21 History Atorvastatin [Lipitor] 40 mg PO DAILY tab 10/15/19 06/11/21 Rx Clopidogrel [Plavix] 75 mg PO DAILY tab 10/15/19 06/11/21 Rx Ergocalciferol [Vitamin D2 (1250 1,250 mcg PO WE 02/10/21 06/11/21 History Mcg = 66583 Iu)] Insulin Detemir (Levemir) [Levemir] 10 unit SQ HS 02/10/21 06/11/21 History Isosorbide Mononitrate ER [Imdur] 30 mg PO DAILY 02/10/21 06/11/21 History Furosemide [Lasix] 40 mg PO DAILY #1 tablet 02/15/21 06/11/21 Rx Magnesium Oxide [Razo] 500 mg PO DAILY 06/11/21 06/11/21 History Metoprolol Tartrate [Lopressor] 100 mg PO BID-W/MEALS 06/11/21 06/11/21 History Multivit/Folic Acid/Vit K1 1 tab PO DAILY 06/11/21 06/11/21 History [One-A-Day Women's 50 Plus Tab] amLODIPine [Norvasc] 5 mg PO DAILY 06/11/21 06/11/21 History hydrALAZINE HCL [Apresoline] 50 mg PO TID-W/MEALS 06/11/21 06/11/21 History lisinopriL [Zestril] 5 mg PO DAILY 06/11/21 06/11/21 History Allergies Allergy/AdvReac Type Severity Reaction Status Date / Time No Known Allergies Allergy Verified 06/11/21 15:21 Physical Exam Vitals: Vital Signs Temp Pulse Resp BP Pulse Ox 06/11/21 19:21 50 L 18 175/89 95 06/11/21 16:40 49 L 20 150/96 95 06/11/21 14:15 143/90 06/11/21 14:00 49 L 22 134/76 96 06/11/21 13:30 97.8 F 95 06/11/21 13:22 34 H 06/11/21 13:20 51 L 24 140/67 87 L Intake and Output 06/11/21 06/11/21 06/11/21 06:59 14:59 22:59 Other: Weight 89.811 kg Results CBC & Chem 7: 06/11/21 14:11 06/11/21 14:11 Labs: Abnormal Lab Results - Last 24 Hours (Table) 06/11/21 06/11/21 06/11/21 Range/Units 14:11 14:11 19:27 RDW 16.5 H (11.5-15.5) % Lymphocytes # 0.8 L (1.0-4.8) k/uL Chloride 110 H (98-107) mmol/L Carbon Dioxide 16 L (22-30) mmol/L BUN 41 H (7-17) mg/dL Creatinine 2.16 H (0.52-1.04) mg/dL Glucose 119 H (74-99) mg/dL AST 40 H (14-36) U/L SARS-CoV-2 (PCR) Detected A (Not Detectd)
[2021-06-11] MEDS: INSULIN ASPART (NovoLOG) 100 UNIT/ML VIAL SQ SCH (21:48)
[2021-06-11] MEDS: INSULIN DETEMIR (LEVEMIR) 100 UNIT/ML SYR SQ SCH (21:48)
[2021-06-11 21:51] LABS: Glucose,Whole Blood 96 mg/dL (75-99)
[2021-06-11] MEDS ORDERED: FUROSEMIDE 10 MG/ML 4 ML VIAL IV SCH (22:00)
[2021-06-11] MEDS: SODIUM BICARBONATE TAB 650 MG TAB PO SCH (22:01)
[2021-06-11] MEDS: dexAMETHasone 2 MG TAB PO SCH (22:01)
[2021-06-11] MEDS: ZINC SULFATE 220 MG CAP PO SCH (22:02)
[2021-06-11] MEDS: ENOXAPARIN 30 MG/0.3 ML SYRINGE SQ SCH (22:02)
[2021-06-11] MEDS: ASCORBIC ACID 500 MG TAB PO SCH (22:02)
[2021-06-11] MEDS: SODIUM CHLORIDE 0.9% 1,000 ML IV SCH (23:04)
[2021-06-12 06:49] LABS: Glucose,Whole Blood 135 mg/dL (75-99)
[2021-06-12] MEDS: INSULIN ASPART (NovoLOG) 100 UNIT/ML VIAL SQ SCH ×4 (06:56→20:39)
[2021-06-12 07:16] LABS: Anisocytosis Slight; Basophils % (A) 0 %; Eosinophils % (A) 0 %; HCT 34.4 % (34.0-46.0); HGB 10.9 gm/dL (11.4-16.0); Hypochromasia Moderate; Lymphocytes # (A) 0.4 k/uL (1.0-4.8); Lymphocytes % (A) 7 %; MCH 31.2 pg (25.0-35.0); MCHC 31.5 g/dL (31.0-37.0); MCV 98.8 fL (80.0-100.0); Macrocytosis Slight; Mean Platelet Volume 7.5; Monocytes # (A) 0.1 k/uL (0-1.0); Monocytes % (A) 2 %; Neutrophils % (A) 90 %; Platelet Count 214 k/uL (150-450); RBC 3.48 m/uL (3.80-5.40); RDW 16.3 % (11.5-15.5); WBC 5.5 k/uL (3.8-10.6)
[2021-06-12 07:26] LABS: Albumin 3.4 g/dL (3.5-5.0); Calcium 8.3 mg/dL (8.4-10.2); Potassium 4.5 mmol/L (3.5-5.1); Total Bilirubin 0.6 mg/dL (0.2-1.3); Total Protein 6.5 g/dL (6.3-8.2)
[2021-06-12 08:13] LABS: Glucose,Whole Blood 153 mg/dL (75-99)
[2021-06-12 08:56] LABS: C Reactive Protein 3.5 mg/dL (<1.0)
[2021-06-12] MEDS ORDERED: ERGOCALCIFEROL 1,250 MCG (50,000 IU) CAPSULE PO SCH (09:00)
[2021-06-12] MEDS ORDERED: FUROSEMIDE 40 MG TAB PO SCH (09:00)
--- NOTE | 2021-06-12 09:46 | P.CRDCN ---
History of Present Illness History of present illness: Known coronary artery disease status post CABG with REYES to LAD severe mitral regurgitation status post mitral valve repair cardiomyopathy status post AICD history of atrial fibrillation status post left atrial appendage occlusion comes to Hospital with worsening shortness of breath bilateral leg edema and weight gain. Her clinical presentation is consistent with an acute exacerbation of chronic systolic heart failure. Her symptoms have been getting progressively worse over the last few weeks and have gotten particularly worse over the last 48 hours. She has both orthopnea and PND. She denies chest pain. At the time of my evaluation she is received IV Lasix with some improvement in his symptoms. Her BNP is elevated at 5190 troponin is negative EKG shows paced rhythm. Her coronary bypass test is positive Constitutional: Denies chills. Denies fever. Complains of fatigue and tiredness Eyes: Denies blurred vision. Denies pain. Ears, nose, mouth and throat: Denies headache. Denies sore throat. Cardiovascular: Denies chest pain. Significant for shortness of breath and bilateral leg edema. Respiratory: Denies cough. Gastrointestinal: Denies abdominal pain. Denies diarrhea. Denies nausea. Denies vomiting. Musculoskeletal: Denies myalgias. Integumentary: Denies pruritus. Denies rash. Neurological: Denies numbness. Denies weakness. Psychiatric: Denies anxiety. Denies depression. Endocrine: Denies fatigue. Denies weight change. Genitourinary: Denies burning, hematuria, frequency of urination. Hematological: No anemia or excess bleeding. General: The patient is awake and alert, in no distress, and does not appear acutely ill. Skin: Skin is warm and dry and no rashes or lesions are noted. Eye: Pupils are equal, round and reactive to light, extra-ocular movements are intact; there is normal conjunctiva bilaterally. Ears, nose, mouth and throat: There are moist mucous membranes and no oral lesions. Neck: The neck is supple, there is no tenderness or JVD. Cardiovascular: There is a regular rate and rhythm. Systolic murmur at the apex, rub or gallop is appreciated. Respiratory: Patient has bilateral wheezes and diminished air entry. Gastrointestinal: Soft, non-distended, non-tender abdomen without masses or organomegaly noted. There is no rebound or guarding present. Bowel sounds are unremarkable. Back: There is no tenderness to palpation in the midline. There is no obvious deformity. Musculoskeletal: Normal ROM, no tenderness, There is no pedal edema. There is no calf tenderness or swelling. Extremities: Bilateral 2+ edema Vascular: Femoral pulse is normal. Posterior tibial pulses are normal .Dorsalis pedis is palpable. Neurological: CN II-XII intact. There are no obvious motor or sensory deficits. Speech is normal. Psychiatric: Cooperative, appropriate mood & affect, normal judgment. Assessment and plan: Acute exacerbation of chronic systolic heart failure CAD status post CABG Cardima apathy status post AICD Chronic renal insufficiency Coronavirus infection I will treat the patient with IV Lasix I will obtain a 2-D echo I will give nebulizers Past Medical History Past Medical History: Coronary Artery Disease (CAD), Chest Pain / Angina, Heart Failure, Diabetes Mellitus, Eye Disorder, Hyperlipidemia, Hypertension, Myocardial Infarction ([place]), Renal Disease, Sleep Apnea/CPAP/BIPAP, Thyroid Disorder Additional Past Medical History / Comment(s): Right cataract, CAD with stent to proximal LAD 03/31/2015, stent to proximal LAD 2016 Last Myocardial Infarction Date:: 03/31/2015 History of Any Multi-Drug Resistant Organisms: None Reported Past Surgical History: Breast Surgery, Heart Catheterization, Heart Catheterization With Stent, Pacemaker Additional Past Surgical History / Comment(s): Left breast bx-neg, buttocks sx- pt stated:" they told me I had gangrene and had sx to remove", lt cataract, Heart Cath 11/18/16. Past Anesthesia/Blood Transfusion Reactions: No Reported Reaction Date of Last Stent Placement:: 2014 Type of Cardiac Device: Permanent Pacemaker Device Placement Date:: Unknown Past Psychological History: No Psychological Hx Reported Smoking Status: Never smoker Past Alcohol Use History: None Reported Past Drug Use History: None Reported - Past Family History Father Family Medical History: Unable to Obtain Additional Family Medical History / Comment(s): Father from motor vehicle accident Mother Family Medical History: Diabetes Mellitus, Hypertension Medications and Allergies Home Medications Medication Instructions Recorded Confirmed Type Citalopram Hydrobromide [CeleXA] 20 mg PO DAILY tab 08/14/16 06/11/21 Rx Pantoprazole [Protonix] 40 mg PO DAILY 07/25/17 06/11/21 History allopurinoL [Zyloprim] 300 mg PO DAILY 11/26/18 06/11/21 History Atorvastatin [Lipitor] 40 mg PO DAILY tab 10/15/19 06/11/21 Rx Clopidogrel [Plavix] 75 mg PO DAILY tab 10/15/19 06/11/21 Rx Ergocalciferol [Vitamin D2 (1250 1,250 mcg PO WE 02/10/21 06/11/21 History Mcg = 26782 Iu)] Insulin Detemir (Levemir) [Levemir] 10 unit SQ HS 02/10/21 06/11/21 History Isosorbide Mononitrate ER [Imdur] 30 mg PO DAILY 02/10/21 06/11/21 History Furosemide [Lasix] 40 mg PO DAILY #1 tablet 02/15/21 06/11/21 Rx Magnesium Oxide [Razo] 500 mg PO DAILY 06/11/21 06/11/21 History Metoprolol Tartrate [Lopressor] 100 mg PO BID-W/MEALS 06/11/21 06/11/21 History Multivit/Folic Acid/Vit K1 1 tab PO DAILY 06/11/21 06/11/21 History [One-A-Day Women's 50 Plus Tab] amLODIPine [Norvasc] 5 mg PO DAILY 06/11/21 06/11/21 History hydrALAZINE HCL [Apresoline] 50 mg PO TID-W/MEALS 06/11/21 06/11/21 History lisinopriL [Zestril] 5 mg PO DAILY 06/11/21 06/11/21 History Allergies Allergy/AdvReac Type Severity Reaction Status Date / Time No Known Allergies Allergy Verified 06/11/21 15:21 Physical Exam Vitals: Vital Signs Temp Pulse Pulse Resp BP BP Pulse Ox 06/12/21 04:00 98.0 F 57 L 20 138/54 97 06/12/21 00:00 97.9 F 56 L 20 136/78 94 L 06/11/21 20:00 97.8 F 53 L 20 148/81 93 L 06/11/21 19:21 50 L 18 175/89 95 06/11/21 16:40 49 L 20 150/96 95 06/11/21 14:15 143/90 06/11/21 14:00 49 L 22 134/76 96 06/11/21 13:30 97.8 F 95 06/11/21 13:22 34 H 03/08/22 13:20 51 L 24 140/67 87 L Intake and Output 06/11/21 06/12/21 06/12/21 22:59 06:59 14:59 Intake Total 10 Output Total 1000 400 Balance -990 -400 Intake: IV 10 Invasive Line 1 10 Output: Urine 1000 400 Other: Voiding Method Indwelling Catheter Indwelling Catheter Weight 89.811 kg Results 06/12/21 06:50 06/12/21 06:50 Cardiac Enzymes 06/11/21 06/11/21 06/12/21 Range/Units 14:11 14:11 06:50 AST 40 H 27 (14-36) U/L Lactate Dehydrogenase 624 H (313-618) U/L Troponin I 0.016 (0.000-0.034) ng/mL Coagulation 06/11/21 Range/Units 14:11 PT 11.4 (9.0-12.0) sec APTT 23.1 (22.0-30.0) sec CBC 06/11/21 06/12/21 Range/Units 14:11 06:50 WBC 6.4 5.5 (3.8-10.6) k/uL RBC 3.93 3.48 L (3.80-5.40) m/uL Hgb 12.1 10.9 L (11.4-16.0) gm/dL Hct 38.2 34.4 (34.0-46.0) % Plt Count 215 214 (150-450) k/uL Comprehensive Metabolic Panel 06/11/21 06/12/21 Range/Units 14:11 06:50 Sodium 140 137 (137-145) mmol/L Potassium 4.9 4.5 (3.5-5.1) mmol/L Chloride 110 H 110 H (98-107) mmol/L Carbon Dioxide 16 L 20 L (22-30) mmol/L BUN 41 H 41 H (7-17) mg/dL Creatinine 2.16 H 2.06 H (0.52-1.04) mg/dL Glucose 119 H 136 H (74-99) mg/dL Calcium 9.0 8.3 L (8.4-10.2) mg/dL AST 40 H 27 (14-36) U/L ALT 12 10 (4-34) U/L Alkaline Phosphatase 84 83 (38-126) U/L Total Protein 7.6 6.5 (6.3-8.2) g/dL Albumin 4.1 3.4 L (3.5-5.0) g/dL Current Medications Generic Name Dose Route Start Last Admin Trade Name Freq PRN Reason Stop Dose Admin Allopurinol 300 mg 06/12/21 09:00 Allopurinol 300 Mg Tab PO DAILY [facility] Amlodipine Besylate 5 mg 06/12/21 09:00 Amlodipine 5 Mg Tab PO DAILY [facility] Ascorbic Acid 500 mg 06/11/21 21:00 06/11/21 22:02 Ascorbic Acid 500 Mg Tab PO 500 mg BID [facility]ELIA Administration Atorvastatin Calcium 40 mg 06/12/21 09:00 Atorvastatin 40 Mg Tab PO DAILY [facility] Citalopram Hydrobromide 20 mg 06/12/21 09:00 Citalopram Hydrobromide 20 Mg Tab PO DAILY [facility] Clopidogrel Bisulfate 75 mg 06/12/21 09:00 Clopidogrel 75 Mg Tab PO DAILY [facility] Dexamethasone 6 mg 06/11/21 20:45 06/11/21 22:01 Dexamethasone 2 Mg Tab PO 6 mg DAILY [facility]ELIA Administration Enoxaparin Sodium 30 mg 06/11/21 21:00 06/11/21 22:02 Enoxaparin 30 Mg/0.3 Ml Syringe SQ 30 mg HS [facility] Administration Ergocalciferol 1,250 mcg 06/12/21 09:00 Ergocalciferol 1,250 Mcg (50,000 Iu) Capsule PO [facility] Ceftriaxone Sodium 1 gm/ 50 mls @ 100 mls/hr 06/11/21 21:00 06/11/21 22:02 Sodium Chloride IVPB 100 mls/hr Q12HR [facility]ELIA Administration Protocol Sodium Chloride 1,000 mls @ 50 mls/hr 06/11/21 21:00 06/11/21 23:04 Saline 0.9% IV 50 mls/hr .Q20H EVELIA Administration Insulin Aspart 0 unit 06/11/21 21:00 06/12/21 06:56 Insulin Aspart (Novolog) 100 Unit/Ml Vial SQ 1 unit ACHS [facility] Administration Protocol Insulin Detemir 10 unit 06/11/21 21:00 06/11/21 21:48 Insulin Detemir (Levemir) 100 Unit/Ml Syr SQ Not Given HS [facility]ELIA Isosorbide Mononitrate 30 mg 06/12/21 09:00 Isosorbide Mononitrate Er 30 Mg Tab.Er.24h PO DAILY [facility] Magnesium Oxide 400 mg 06/12/21 09:00 Magnesium Oxide 400 Mg Tab PO DAILY [facility] Metoprolol Tartrate 100 mg 06/12/21 07:30 Metoprolol Tartrate 50 Mg Tab PO BID-W/MEALS [facility] Multivitamins 1 each 06/12/21 09:00 Multivitamins, Thera 1 Each Tab PO DAILY [facility] Pantoprazole Sodium 40 mg 06/12/21 09:00 Pantoprazole 40 Mg Tablet PO DAILY [facility] Sodium Bicarbonate 650 mg 06/11/21 22:00 06/11/21 22:01 Sodium Bicarbonate Tab 650 Mg Tab PO 650 mg TID [facility] Administration Zinc Sulfate 220 mg 06/11/21 20:45 06/11/21 22:02 Zinc Sulfate 220 Mg Cap PO 220 mg DAILY [facility] Administration Intake and Output 06/11/21 06/12/21 06/12/21 22:59 06:59 14:59 Intake Total 10 Output Total 1000 400 Balance -990 -400 Intake: IV 10 Invasive Line 1 10 Output: Urine 1000 400 Other: Voiding Method Indwelling Catheter Indwelling Catheter Weight 89.811 kg 06/12/21 06:50 06/12/21 06:50
[2021-06-12] MEDS ORDERED: ACETAMINOPHEN TAB 500 MG TAB PO PRN (09:55)
[2021-06-12] MEDS: ISOSORBIDE MONONITRATE ER 30 MG TAB.ER.24H PO SCH (10:15)
[2021-06-12] MEDS: allopurinoL 300 MG TAB PO SCH (10:15)
[2021-06-12] MEDS: PANTOPRAZOLE 40 MG TABLET PO SCH (10:15)
[2021-06-12] MEDS: METOPROLOL TARTRATE 50 MG TAB PO SCH ×2 (10:15→18:13)
[2021-06-12] MEDS: SODIUM BICARBONATE TAB 650 MG TAB PO SCH ×3 (10:15→20:36)
[2021-06-12] MEDS: MAGNESIUM OXIDE 400 MG TAB PO SCH (10:15)
[2021-06-12] MEDS: amLODIPine 5 MG TAB PO SCH (10:15)
[2021-06-12] MEDS: MULTIVITAMINS, THERA 1 EACH TAB PO SCH (10:16)
[2021-06-12] MEDS: dexAMETHasone 2 MG TAB PO SCH (10:16)
[2021-06-12] MEDS: ASCORBIC ACID 500 MG TAB PO SCH ×2 (10:16→20:36)
[2021-06-12] MEDS: ATORVASTATIN 40 MG TAB PO SCH (10:16)
[2021-06-12] MEDS: CLOPIDOGREL 75 MG TAB PO SCH (10:16)
[2021-06-12] MEDS: CITALOPRAM HYDROBROMIDE 20 MG TAB PO SCH (10:17)
[2021-06-12] MEDS: ZINC SULFATE 220 MG CAP PO SCH (10:17)
--- NOTE | 2021-06-12 11:00 | ECHOF ---
Referral Reason:CHF MEASUREMENTS -------- HEIGHT: 154.9 cm WEIGHT: 89.8 kg BP: 157/62 RVIDd: 3.9 cm (< 3.3) IVSd: 1.1 cm (0.6 - 1.1) LVIDd: 4.7 cm (3.9 - 5.3) LVPWd: 1.1 cm (0.6 - 1.1) IVSs: 1.5 cm LVIDs: 3.9 cm LVPWs: 1.7 cm LA Diam: 3.5 cm (2.7 - 3.8) LAESV Index (A-L): 32.60 ml/m Ao Diam: 3.4 cm (2.0 - 3.7) AV Cusp: 1.8 cm (1.5 - 2.6) MV EXCURSION: 12.907 mm (> 18.000) MV EF SLOPE: 27 mm/s (70 - 150) EPSS: 0.6 cm MV E Ashwin: 1.91 m/s MV DecT: 465 ms MV A Ashwin: 1.20 m/s MV E/A Ratio: 1.59 AV maxP.55 mmHg AV meanP.33 mmHg RAP: 15.00 mmHg RVSP: 59.82 mmHg FINDINGS -------- Paced rhythm. This was a technically adequate study. The left ventricular size is normal. There is borderline concentric left ventricular hypertrophy. Overall left ventricular systolic function is normal with, an EF between 60 - 65 %. The right ventricle is moderately enlarged. LA is midly dilated 29-33ml/m2. The right atrium is normal in size. Interatrial and interventricular septum intact. There is mild aortic valve sclerosis. There is mild aortic stenosis present. Peak/mean gradient a cross the Aortic Valve is 11.55mmHg / 6.33mmHg. The mitral valve leaflets are mildly thickened. Mild mitral annular calcification present. There is trace to mild mitral regurgitation. The peak and mean MV gradients are 16.22mmHg 5.16mmHg as me asured by doppler. MV Repair. Moderate tricuspid regurgitation present. There is severe pulmonary hypertension. The right ventr icular systolic pressure, as measured by Doppler, is 59.82mmHg. Trace/mild (physiologic) pulmonic regurgitation. The aortic root size is normal. The inferior vena cava is dilated with no significant inspiratory collapse which is consistent estima robert right atrial pressure of >15 mmHg. There is no pericardial effusion. Pleural Effusion with Fibrin. CONCLUSIONS -------- 1. The left ventricular size is normal. 2. There is borderline concentric left ventricular hypertrophy. 3. Overall left ventricular systolic function is normal with, an EF between 60 - 65 %. 4. The right ventricle is moderately enlarged. 5. LA is midly dilated 29-33ml/m2. 6. There is mild aortic valve sclerosis. 7. There is mild aortic stenosis present. 8. Peak/mean gradient across the Aortic Valve is 11.55mmHg / 6.33mmHg. 9. The mitral valve leaflets are mildly thickened. 10. Mild mitral annular calcification present. 11. There is trace to mild mitral regurgitation. 12. The peak and mean MV gradients are 16.22mmHg 5.16mmHg as measured by doppler. 13. MV Repair. 14. Moderate tricuspid regurgitation present. 15. There is severe pulmonary hypertension. 16. The right ventricular systolic pressure, as measured by Doppler, is 59.82mmHg. 17. Trace/mild (physiologic) pulmonic regurgitation. 18. The inferior vena cava is dilated with no significant inspiratory collapse which is consistent es timated right atrial pressure of >15 mmHg. 19. There is no pericardial effusion. 20. Pleural Effusion with Fibrin. PROJECT SYSTEMS ENGINEER: Noni Cagle RDCS
[2021-06-12] MEDS ORDERED: ALBUTEROL NEBULIZED 2.5 MG/3 ML INHALATION SCH (12:00)
[2021-06-12 12:04] LABS: Glucose,Whole Blood 184 mg/dL (75-99)
[2021-06-12] MEDS: ALBUTEROL HFA INHALER INHALATION SCH ×4 (12:18→23:53)
--- NOTE | 2021-06-12 14:59 | P.PN ---
Progress Note - Text Progress Note Date: 06/12/21 Chief Complaint: Short of breath History of presenting complaint: This is a pleasant 70-year-old patient of Dr. Moore. Chronic stable medical conditions include coronary artery disease with stent/bypass, diabetes, hypertension, hyperlipidemia, hypothyroid, obstructive sleep apnea does not use CPAP. stent to LAD in 2017. Mitral valve repair for severe mitral regurgitation Patient with 3 days not associated becoming increasingly short of breath. Congested cough. Chills. Noted some increasing swelling of lower extremity. Not really expectorating any phlegm. Tired rundown. Decreased appetite. Admitted with right lower lobe pneumonia, COVID-19, some CHF exacerbation, acute hypoxic respiratory failure. IV ceftriaxone. Dexamethasone. Oxygen June 12: Reclining in bed. Tired. Not much of an appetite. Having fevers. IV ceftriaxone. Started and IV Lasix per cardiology for CHF. Congested cough Active Medications Acetaminophen (Acetaminophen Tab 500 Mg Tab) 500 mg PO Q6HR PRN PRN Reason: Fever and/ or Pain Last Admin: 06/12/21 10:16 Dose: 500 mg Documented by: Albuterol Sulfate (Albuterol Hfa Inhaler) 2 puff INHALATION RT-Q4H [facility] Last Admin: 06/12/21 12:18 Dose: 2 puff Documented by: Allopurinol (Allopurinol 300 Mg Tab) 300 mg PO DAILY [facility] Last Admin: 06/12/21 10:15 Dose: 300 mg Documented by: Amlodipine Besylate (Amlodipine 5 Mg Tab) 5 mg PO DAILY [facility] Last Admin: 06/12/21 10:15 Dose: 5 mg Documented by: Ascorbic Acid (Ascorbic Acid 500 Mg Tab) 500 mg PO BID [facility] Last Admin: 06/12/21 10:16 Dose: 500 mg Documented by: Atorvastatin Calcium (Atorvastatin 40 Mg Tab) 40 mg PO DAILY [facility] Last Admin: 06/12/21 10:16 Dose: 40 mg Documented by: Citalopram Hydrobromide (Citalopram Hydrobromide 20 Mg Tab) 20 mg PO DAILY [facility] Last Admin: 06/12/21 10:17 Dose: 20 mg Documented by: Clopidogrel Bisulfate (Clopidogrel 75 Mg Tab) 75 mg PO DAILY [facility] Last Admin: 06/12/21 10:16 Dose: 75 mg Documented by: Dexamethasone (Dexamethasone 2 Mg Tab) 6 mg PO DAILY [facility] Last Admin: 06/12/21 10:16 Dose: 6 mg Documented by: Enoxaparin Sodium (Enoxaparin 30 Mg/0.3 Ml Syringe) 30 mg SQ HS [facility] Last Admin: 06/11/21 22:02 Dose: 30 mg Documented by: Ergocalciferol (Ergocalciferol 1,250 Mcg (50,000 Iu) Capsule) 1,250 mcg PO WE [facility] Last Admin: 06/12/21 10:26 Dose: 1,250 mcg Documented by: Furosemide (Furosemide 10 Mg/Ml 4 Ml Vial) 40 mg IV Q8HR [facility] Ceftriaxone Sodium 1 gm/ (Sodium Chloride) 50 mls @ 100 mls/hr IVPB Q12HR [facility]; Protocol Last Admin: 06/12/21 10:17 Dose: 100 mls/hr Documented by: Sodium Chloride (Saline 0.9%) 1,000 mls @ 50 mls/hr IV .Q20H [facility] Last Admin: 06/11/21 23:04 Dose: 50 mls/hr Documented by: Insulin Aspart (Insulin Aspart (Novolog) 100 Unit/Ml Vial) 0 unit SQ [facility]; Protocol Last Admin: 06/12/21 13:11 Dose: Not Given Documented by: Insulin Detemir (Insulin Detemir (Levemir) 100 Unit/Ml Syr) 10 unit SQ [facility] Last Admin: 06/11/21 21:48 Dose: Not Given Documented by: Isosorbide Mononitrate (Isosorbide Mononitrate Er 30 Mg Tab.Er.24h) 30 mg PO DAILY [facility] Last Admin: 06/12/21 10:15 Dose: 30 mg Documented by: Magnesium Oxide (Magnesium Oxide 400 Mg Tab) 400 mg PO DAILY [facility] Last Admin: 06/12/21 10:15 Dose: 400 mg Documented by: Metoprolol Tartrate (Metoprolol Tartrate 50 Mg Tab) 100 mg PO BID-W/MEALS [facility] Last Admin: 06/12/21 10:15 Dose: 100 mg Documented by: Multivitamins (Multivitamins, Thera 1 Each Tab) 1 each PO DAILY [facility] Last Admin: 06/12/21 10:16 Dose: 1 each Documented by: Pantoprazole Sodium (Pantoprazole 40 Mg Tablet) 40 mg PO DAILY [facility] Last Admin: 06/12/21 10:15 Dose: 40 mg Documented by: Sodium Bicarbonate (Sodium Bicarbonate Tab 650 Mg Tab) 650 mg PO TID [facility] Last Admin: 06/12/21 10:15 Dose: 650 mg Documented by: Zinc Sulfate (Zinc Sulfate 220 Mg Cap) 220 mg PO DAILY [facility] Last Admin: 06/12/21 10:17 Dose: 220 mg Documented by: Past medical history to include: Coronary artery disease with stent/bypass, mitral valve repair, CHF, diabetes, hyperlipidemia, hypertension, obstructive sleep apnea does not use CPAP, hypothyroid, Social history: Lives with . No smoking or alcohol Physical examination: VITAL SIGNS: 100.1, 60, 18, 163/78, 93% on 4 L GENERAL: laying in bed, awake, short of breath. LUNGS: Respiratory rate increased; right basal coarse crackles. PSYCH: Alert and oriented x3; mood and affect normall. NEUROLOGICAL: Cranial nerves grossly intact; no facial asymmetry, moving all 4 limbs Rest of exam per cardiology and nursing Investigations June 12: White count [age]-year-old woman 10.9 platelets 214 potassium 4.5. 41 creatinine 2.06 Pro-calcitonin 0.11 White count 6.4 hemoglobin 12.1 platelets 215 pressure 4.9 bicarb 16 BUN 41 creatinine 2.16 COVID-19: PCR: Detected Influenza type A type B RSV: Not detected EKG tracing personally reviewed by me-AV paced rhythm. Rate 50 Chest x-ray film personally reviewed by me-right basilar infiltrate Assessment and plan: -Right lower lobe pneumonia, suspect gram-negative organism: IV ceftriaxone 1 g every 12 -COVID-19 positive Vitamin C vitamin D zinc, dexamethasone -Acute hypoxic respiratory failure secondary to COVID-19 and pneumonia Supplement oxygen --Acute on chronic congestive heart failure exacerbation from systolic dysfunction EF 35-40%, from underlying coronary artery disease, IV Lasix -Moderate to severe tricuspid regurgitation, nontraumatic Follow clinically -Coronary artery with stent/bypass Metoprolol 100 mg twice a day, Lipitor 40 mg -Diabetes mellitus type 2, uncontrolled with hyperglycemia Subcu Levemir. Follow Accu-Cheks -Essential hypertension: Uncontrolled amlodipine 5 mg bid. Lasix 40 mg a day.. Lopressor 100 mg twice a day -Chronic kidney disease stage III from nephrosclerosis and diabetic nephropathy Creatinine was 1.6 August of this year -Acute kidney injury combination of ATN from pneumonia Admission creatinine 2.16. -Hyperlipidemia 40 mg Lipitor daily -Acute metabolic acidosis from chronic kidney disease Sodium bicarbonate -Hypothyroid Synthroid 150 g daily -Obstructive status sleep apnea does not use CPAP -Obesity BMI 37.4 IV ceftriaxone 1 g every 12, dexamethasone, vitamin C vitamin D, zinc. IV Lasix. Follow with cardiology and ID.
[2021-06-12] MEDS: FUROSEMIDE 10 MG/ML 4 ML VIAL IV SCH ×2 (18:13→23:22)
[2021-06-12] MEDS: SODIUM CHLORIDE 0.9% 1,000 ML IV SCH (18:13)
[2021-06-12 18:42] LABS: Glucose,Whole Blood 269 mg/dL (75-99)
[2021-06-12 19:38] LABS: Glucose,Whole Blood 279 mg/dL (75-99)
[2021-06-12] MEDS: ENOXAPARIN 30 MG/0.3 ML SYRINGE SQ SCH (20:39)
[2021-06-12] MEDS: INSULIN DETEMIR (LEVEMIR) 100 UNIT/ML SYR SQ SCH (20:40)
--- NOTE | 2021-06-12 23:46 | P.CONS ---
History of Present Illness - Reason for Consult Consult date: 06/12/21 Pneumonia Requesting physician: Johnny Capone - Chief Complaint Shortness of breath x 2 days - History of Present Illness Patient is a 70-year female with a past medical his significant for congestive heart failure presenting to the ER yesterday afternoon for evaluation of increasing shortness of breath that has been getting worse for the last 2 days before presentation to the hospital patient is complaining of shortness of breath on minimal exertion and even at rest the patient also have a cough moderate intensity with occasional sputum production no hemoptysis patient denies having any chest pain patient denies having any nausea or vomiting no abdominal pain he did have some diarrhea patient on presentation to the hospital was afebrile she did have low-grade fever 100.1 F today, patient was hypoxic with O2 sats of 87% on room air and is currently 94% on 4 L nasal cannula patient did have normal white count with lymphopenia D-dimer was normal he did have elevated BUN and creatinine with a creatinine clearance less than 30 liver enzymes are normal CRP was 3.5 procalcitonin 0.11 blood culture has been obtained which is currently pending patient did have a chest x-ray correlate for congestive heart failure and pneumonia patient was admitted to the hospital infectious disease was consulted for further management of antibiotic therapy Review of Systems Positive point has been mentioned in the HPI rest of the systems are negative Past Medical History Past Medical History: Coronary Artery Disease (CAD), Chest Pain / Angina, Heart Failure, Diabetes Mellitus, Eye Disorder, Hyperlipidemia, Hypertension, Myocardial Infarction (PR), Renal Disease, Sleep Apnea/CPAP/BIPAP, Thyroid Disorder Additional Past Medical History / Comment(s): Right cataract, CAD with stent to proximal LAD 03/31/2015, stent to proximal LAD 2016 Last Myocardial Infarction Date:: 03/31/2015 History of Any Multi-Drug Resistant Organisms: None Reported Past Surgical History: Breast Surgery, Heart Catheterization, Heart Catheterization With Stent, Pacemaker Additional Past Surgical History / Comment(s): Left breast bx-neg, buttocks sx- pt stated:" they told me I had gangrene and had sx to remove", lt cataract, Heart Cath 11/18/16. Past Anesthesia/Blood Transfusion Reactions: No Reported Reaction Date of Last Stent Placement:: 2014 Type of Cardiac Device: Permanent Pacemaker Device Placement Date:: Unknown Past Psychological History: Depression Smoking Status: Never smoker Past Alcohol Use History: None Reported Past Drug Use History: None Reported - Past Family History Father Family Medical History: Unable to Obtain Additional Family Medical History / Comment(s): Father from motor vehicle accident Mother Family Medical History: Diabetes Mellitus, Hypertension Medications and Allergies Home Medications Medication Instructions Recorded Confirmed Type Citalopram Hydrobromide [CeleXA] 20 mg PO DAILY tab 08/14/16 06/11/21 Rx Pantoprazole [Protonix] 40 mg PO DAILY 07/25/17 06/11/21 History allopurinoL [Zyloprim] 300 mg PO DAILY 11/26/18 06/11/21 History Atorvastatin [Lipitor] 40 mg PO DAILY tab 10/15/19 06/11/21 Rx Clopidogrel [Plavix] 75 mg PO DAILY tab 10/15/19 06/11/21 Rx Ergocalciferol [Vitamin D2 (1250 1,250 mcg PO WE 02/10/21 06/11/21 History Mcg = 75860 Iu)] Insulin Detemir (Levemir) [Levemir] 10 unit SQ HS 02/10/21 06/11/21 History Isosorbide Mononitrate ER [Imdur] 30 mg PO DAILY 02/10/21 06/11/21 History Furosemide [Lasix] 40 mg PO DAILY #1 tablet 02/15/21 06/11/21 Rx Magnesium Oxide [Razo] 500 mg PO DAILY 06/11/21 06/11/21 History Metoprolol Tartrate [Lopressor] 100 mg PO BID-W/MEALS 06/11/21 06/11/21 History Multivit/Folic Acid/Vit K1 1 tab PO DAILY 06/11/21 06/11/21 History [One-A-Day Women's 50 Plus Tab] amLODIPine [Norvasc] 5 mg PO DAILY 06/11/21 06/11/21 History hydrALAZINE HCL [Apresoline] 50 mg PO TID-W/MEALS 06/11/21 06/11/21 History lisinopriL [Zestril] 5 mg PO DAILY 06/11/21 06/11/21 History Allergies Allergy/AdvReac Type Severity Reaction Status Date / Time No Known Allergies Allergy Verified 06/11/21 15:21 Physical Exam Vitals: Vital Signs Temp Pulse Pulse Resp BP BP Pulse Ox 06/12/21 09:37 100.1 F H 60 18 163/78 93 L 06/12/21 04:00 98.0 F 57 L 20 138/54 97 06/12/21 00:00 97.9 F 56 L 20 136/78 94 L 06/11/21 20:00 97.8 F 53 L 20 148/81 93 L 06/11/21 19:21 50 L 18 175/89 95 06/11/21 16:40 49 L 20 150/96 95 06/11/21 14:15 143/90 06/11/21 14:00 49 L 22 134/76 96 06/11/21 13:30 97.8 F 95 06/11/21 13:22 34 H 06/11/21 13:20 51 L 24 140/67 87 L Intake and Output 06/11/21 06/12/21 06/12/21 22:59 06:59 14:59 Intake Total 10 Output Total 1000 400 Balance -990 -400 Intake: IV 10 Invasive Line 1 10 Output: Urine 1000 400 Other: Voiding Method Indwelling Catheter Indwelling Catheter Weight 89.811 kg GENERAL DESCRIPTION: An elderly female lying in bed, no distress. No tachypnea or accessory muscle of respiration use. HEENT: Shows Pallor , no scleral icterus. Oral mucous membrane is dry. No pharyngeal erythema or thrush NECK: Trachea central, no thyromegaly. LUNGS: Unlabored breathing. Coarse breath sounds bilaterally HEART: S1, S2, regular rate and rhythm. No loud murmur ABDOMEN: Soft, no tenderness , guarding or rigidity, no organomegaly EXTREMITIES: No edema of feet. SKIN: No rash, no masses palpable. NEUROLOGICAL: The patient is awake, alert, oriented x3, mood and affect normal. Results CBC & Chem 7: 06/12/21 06:50 06/12/21 06:50 Labs: Abnormal Lab Results - Last 24 Hours (Table) 06/11/21 06/11/21 06/11/21 Range/Units 14:11 14:11 14:11 RBC (3.80-5.40) m/uL Hgb (11.4-16.0) gm/dL RDW 16.5 H (11.5-15.5) % Lymphocytes # 0.8 L (1.0-4.8) k/uL Chloride 110 H (98-107) mmol/L Carbon Dioxide 16 L (22-30) mmol/L BUN 41 H (7-17) mg/dL Creatinine 2.16 H (0.52-1.04) mg/dL Glucose 119 H (74-99) mg/dL POC Glucose (mg/dL) (75-99) mg/dL Calcium (8.4-10.2) mg/dL AST 40 H (14-36) U/L Lactate Dehydrogenase (313-618) U/L C-Reactive Protein (<1.0) mg/dL Albumin (3.5-5.0) g/dL Procalcitonin 0.11 H (0.02-0.09) ng/mL SARS-CoV-2 (PCR) (Not Detectd) 06/11/21 06/12/21 06/12/21 Range/Units 19:27 06:47 06:50 RBC 3.48 L (3.80-5.40) m/uL Hgb 10.9 L (11.4-16.0) gm/dL RDW 16.3 H (11.5-15.5) % Lymphocytes # 0.4 L (1.0-4.8) k/uL Chloride (98-107) mmol/L Carbon Dioxide (22-30) mmol/L BUN (7-17) mg/dL Creatinine (0.52-1.04) mg/dL Glucose (74-99) mg/dL POC Glucose (mg/dL) 135 H (75-99) mg/dL Calcium (8.4-10.2) mg/dL AST (14-36) U/L Lactate Dehydrogenase (313-618) U/L C-Reactive Protein (<1.0) mg/dL Albumin (3.5-5.0) g/dL Procalcitonin (0.02-0.09) ng/mL SARS-CoV-2 (PCR) Detected A (Not Detectd) 06/12/21 06/12/21 Range/Units 06:50 08:11 RBC (3.80-5.40) m/uL Hgb (11.4-16.0) gm/dL RDW (11.5-15.5) % Lymphocytes # (1.0-4.8) k/uL Chloride 110 H (98-107) mmol/L Carbon Dioxide 20 L (22-30) mmol/L BUN 41 H (7-17) mg/dL Creatinine 2.06 H (0.52-1.04) mg/dL Glucose 136 H (74-99) mg/dL POC Glucose (mg/dL) 153 H (75-99) mg/dL Calcium 8.3 L (8.4-10.2) mg/dL AST (14-36) U/L Lactate Dehydrogenase 624 H (313-618) U/L C-Reactive Protein 3.5 H (<1.0) mg/dL Albumin 3.4 L (3.5-5.0) g/dL Procalcitonin (0.02-0.09) ng/mL SARS-CoV-2 (PCR) (Not Detectd) Assessment and Plan (1) COVID-19 Current Visit: Yes Status: Acute Code(s): U07.1 - COVID-19 SNOMED Code(s): 773270457 Plan: 1patient presented to hospital with increasing shortness of breath and cough which is likely multifactorial in this patient who do have a history of congestive heart failure with a chest x-ray has been suggestive mostly of CHF rather than the groundglass opacities typically seen with a COVID-19 infection however the patient did have a positive testing and did have a possible component of COVID-19 infection. 2patient with renal insufficiency with a creatinine clearance less than 30, not an ideal candidate for remdesivir and the patient is not sick enough to require Baricitinab 3-patient to continue with the dexamethasone Lovenox zinc and ascorbic acid. 4droplet isolation and respiratory support We will follow on clinical condition and cultures to further adjust medication if needed Thank you for this consultation will follow this patient along with you Time with Patient: Greater than 30
[2021-06-12] MEDS ORDERED: HALOPERIDOL LACTATE 5 MG/ML 1 ML VIAL IM PRN (23:55)
[2021-06-13] MEDS: ALBUTEROL HFA INHALER INHALATION SCH ×6 (03:59→23:23)
[2021-06-13 06:28] LABS: Glucose,Whole Blood 204 mg/dL (75-99)
[2021-06-13] MEDS: INSULIN ASPART (NovoLOG) 100 UNIT/ML VIAL SQ SCH ×4 (06:34→21:35)
[2021-06-13] MEDS: METOPROLOL TARTRATE 50 MG TAB PO SCH ×2 (06:34→17:42)
[2021-06-13 09:25] LABS: Calcium 8.1 mg/dL (8.4-10.2); Potassium 4.4 mmol/L (3.5-5.1)
[2021-06-13] MEDS: MAGNESIUM OXIDE 400 MG TAB PO SCH (09:31)
[2021-06-13] MEDS: PANTOPRAZOLE 40 MG TABLET PO SCH (09:31)
[2021-06-13] MEDS: dexAMETHasone 2 MG TAB PO SCH (09:31)
[2021-06-13] MEDS: CLOPIDOGREL 75 MG TAB PO SCH (09:31)
[2021-06-13] MEDS: ATORVASTATIN 40 MG TAB PO SCH (09:31)
[2021-06-13] MEDS: SODIUM BICARBONATE TAB 650 MG TAB PO SCH ×3 (09:31→20:26)
[2021-06-13] MEDS: CITALOPRAM HYDROBROMIDE 20 MG TAB PO SCH (09:31)
[2021-06-13] MEDS: ISOSORBIDE MONONITRATE ER 30 MG TAB.ER.24H PO SCH (09:32)
[2021-06-13] MEDS: ASCORBIC ACID 500 MG TAB PO SCH ×2 (09:32→20:26)
[2021-06-13] MEDS: MULTIVITAMINS, THERA 1 EACH TAB PO SCH (09:32)
[2021-06-13] MEDS: amLODIPine 5 MG TAB PO SCH (09:32)
[2021-06-13] MEDS: ZINC SULFATE 220 MG CAP PO SCH (09:32)
[2021-06-13] MEDS: allopurinoL 300 MG TAB PO SCH (09:32)
[2021-06-13] MEDS: FUROSEMIDE 10 MG/ML 4 ML VIAL IV SCH ×2 (09:32→20:25)
[2021-06-13 12:27] LABS: Glucose,Whole Blood 187 mg/dL (75-99)
[2021-06-13 12:31] VITALS: BMI 37.4
--- NOTE | 2021-06-13 13:28 | P.PN ---
Subjective This is a 70 year old female with a past medical history of known coronary artery disease status post CABG with REYES to LAD, severe mitral regurgitation status post mitral valve repair, ischemic cardiomyopathy status post AICD, history of paroxysmal atrial fibrillation status post left atrial appendage occlusion, chronic kidney disease,. She follows with Dr. Nagy. We are consulted for congestive heart failure. Patient comes to Hospital with worsening shortness of breath bilateral leg edema and weight gain. She also endorses symptoms of cough, sputum production. Her symptoms have been getting progressively worse over the last few weeks and have gotten particularly worse over the last 48 hours. On admission, she was also found to be Covid19 positive. She was started on IV Lasix 40 mg every 8 hours on admission. Echocardiogram revealed an EF of 6065%, mild aortic stenosis with a peak/mean gradient of 11 mmHg/6mmHg, trace to mild mitral regurgitation, mitral valve repair, moderate tricuspid regurgitation, severe pulmonary hypertension with RVSP of 60 mmHg, pleural effusion, no pericardial effusion. 06/13/2021 Patient seen and examined at bedside, she denies any shortness of breath, appears short of breath on exam. Her lower extremity edema has improved 1+ bilaterally. She continues to have a cough with sputum production. No chest pain. Telemetry reviewed patient is a-v paced on the monitor. She's currently maintained on amlodipine 5 mg daily, atorvastatin 40 mg daily, Plavix 75 mg daily, IV Lasix 40 mg every 8 hours, Imdur 30 mg daily, metoprolol tartrate 100 mg twice a day Blood pressure 129/60, heart rate 50, afebrile, saturations 96% on 4 L nasal cannula Labs: Sodium 138, potassium 4.4, BUN 51, serum creatinine 2.2 GENERAL: Well-appearing, well-nourished and in no acute distress. NECK: Supple without JVD or thyromegaly. LUNGS: Breath sounds rhonchi to auscultation bilaterally. Respiration equal and unlabored. No wheezes, rales or rhonchi. HEART: Regular rate and rhythm, S1 and S2 heard. EXTREMITIES: Normal range of motion, 1+ bilateral pitting edema. No clubbing or cyanosis. Peripheral pulses intact. ASSESSMENT Acute on chronic heart failure with preserved ejection fraction COVID-19 Infection Coronary artery disease status post CABG with REYES to LAD Severe mitral regurgitation status post prior mitral valve repair History of Ischemic cardiomyopathy status post AICD History of paroxysmal atrial fibrillation status post left atrial appendage occlusion Chronic kidney disease PLAN Decrease IV Lasix 40mg BID Monitor I's and O's, renal function and electrolytes Continue amlodipine 5 mg daily, atorvastatin 40 mg daily, Plavix 75 mg daily, Imdur, metoprolol Infectious disease following for covid-19 infection Further recommendations based on clinical course Nurse Practitioner note has been reviewed, I agree with a documented findings and plan of care. Patient was seen and examined. Objective - Vital Signs Vital signs: Vital Signs Temp 98.6 F 06/12/21 14:58 Pulse 54 L 06/12/21 14:58 Resp 18 06/12/21 14:58 BP 151/65 06/12/21 12:13 Pulse Ox 93 L 06/12/21 12:13 Intake & Output 06/11/21 06/12/21 06/12/21 18:59 06:59 18:59 Intake Total 10 Output Total 1400 Balance -1390 Weight 89.811 kg 89.811 kg Intake: IV 10 Invasive Line 1 10 Output: Urine 1400 Other: Voiding Method Indwelling Catheter - Labs CBC & Chem 7: 06/12/21 06:50 06/13/21 07:56 Labs: Abnormal Lab Results - Last 24 Hours (Table) 06/11/21 06/11/21 06/12/21 Range/Units 14:11 19:27 06:47 RBC (3.80-5.40) m/uL Hgb (11.4-16.0) gm/dL RDW (11.5-15.5) % Lymphocytes # (1.0-4.8) k/uL Chloride (98-107) mmol/L Carbon Dioxide (22-30) mmol/L BUN (7-17) mg/dL Creatinine (0.52-1.04) mg/dL Glucose (74-99) mg/dL POC Glucose (mg/dL) 135 H (75-99) mg/dL Calcium (8.4-10.2) mg/dL Lactate Dehydrogenase (313-618) U/L C-Reactive Protein (<1.0) mg/dL Albumin (3.5-5.0) g/dL Procalcitonin 0.11 H (0.02-0.09) ng/mL SARS-CoV-2 (PCR) Detected A (Not Detectd) 06/12/21 06/12/21 06/12/21 Range/Units 06:50 06:50 08:11 RBC 3.48 L (3.80-5.40) m/uL Hgb 10.9 L (11.4-16.0) gm/dL RDW 16.3 H (11.5-15.5) % Lymphocytes # 0.4 L (1.0-4.8) k/uL Chloride 110 H (98-107) mmol/L Carbon Dioxide 20 L (22-30) mmol/L BUN 41 H (7-17) mg/dL Creatinine 2.06 H (0.52-1.04) mg/dL Glucose 136 H (74-99) mg/dL POC Glucose (mg/dL) 153 H (75-99) mg/dL Calcium 8.3 L (8.4-10.2) mg/dL Lactate Dehydrogenase 624 H (313-618) U/L C-Reactive Protein 3.5 H (<1.0) mg/dL Albumin 3.4 L (3.5-5.0) g/dL Procalcitonin (0.02-0.09) ng/mL SARS-CoV-2 (PCR) (Not Detectd) 06/12/21 Range/Units 12:00 RBC (3.80-5.40) m/uL Hgb (11.4-16.0) gm/dL RDW (11.5-15.5) % Lymphocytes # (1.0-4.8) k/uL Chloride (98-107) mmol/L Carbon Dioxide (22-30) mmol/L BUN (7-17) mg/dL Creatinine (0.52-1.04) mg/dL Glucose (74-99) mg/dL POC Glucose (mg/dL) 184 H (75-99) mg/dL Calcium (8.4-10.2) mg/dL Lactate Dehydrogenase (313-618) U/L C-Reactive Protein (<1.0) mg/dL Albumin (3.5-5.0) g/dL Procalcitonin (0.02-0.09) ng/mL SARS-CoV-2 (PCR) (Not Detectd)
--- NOTE | 2021-06-13 15:27 | P.PN ---
Progress Note - Text Progress Note Date: 06/13/21 Chief Complaint: Short of breath History of presenting complaint: This is a pleasant 70-year-old patient of Dr. Moore. Chronic stable medical conditions include coronary artery disease with stent/bypass, diabetes, hypertension, hyperlipidemia, hypothyroid, obstructive sleep apnea does not use CPAP. stent to LAD in 2017. Mitral valve repair for severe mitral regurgitation Patient with 3 days not associated becoming increasingly short of breath. Congested cough. Chills. Noted some increasing swelling of lower extremity. Not really expectorating any phlegm. Tired rundown. Decreased appetite. Admitted with right lower lobe pneumonia, COVID-19, some CHF exacerbation, acute hypoxic respiratory failure. IV ceftriaxone. Dexamethasone. Oxygen June 12: Reclining in bed. Tired. Not much of an appetite. Having fevers. IV ceftriaxone. Started and IV Lasix per cardiology for CHF. Congested cough June 13: Patient was hallucinating last night. With agitation. Had to be given 1 dose of Haldol 5 mg. More restful this morning. Sleepy. Had about 50% of her lunch. Lasix decreased to IV 40 twice a day per cardiology. On dexamethasone Active Medications Acetaminophen (Acetaminophen Tab 500 Mg Tab) 500 mg PO Q6HR PRN PRN Reason: Fever and/ or Pain Last Admin: 06/12/21 10:16 Dose: 500 mg Documented by: Albuterol Sulfate (Albuterol Hfa Inhaler) 2 puff INHALATION RT-Q4H [facility] Last Admin: 06/13/21 12:15 Dose: 2 puff Documented by: Allopurinol (Allopurinol 300 Mg Tab) 300 mg PO DAILY [facility] Last Admin: 06/13/21 09:32 Dose: 300 mg Documented by: Amlodipine Besylate (Amlodipine 5 Mg Tab) 5 mg PO DAILY [facility] [place] Last Admin: 06/13/21 09:32 Dose: 5 mg Documented by: Ascorbic Acid (Ascorbic Acid 500 Mg Tab) 500 mg PO BID [facility] [place] Last Admin: 06/13/21 09:32 Dose: 500 mg Documented by: Atorvastatin Calcium (Atorvastatin 40 Mg Tab) 40 mg PO DAILY [facility] [place] Last Admin: 06/13/21 09:31 Dose: 40 mg Documented by: Citalopram Hydrobromide (Citalopram Hydrobromide 20 Mg Tab) 20 mg PO DAILY [facility] [place] Last Admin: 06/13/21 09:31 Dose: 20 mg Documented by: Clopidogrel Bisulfate (Clopidogrel 75 Mg Tab) 75 mg PO DAILY [facility] [place] Last Admin: 06/13/21 09:31 Dose: 75 mg Documented by: Dexamethasone (Dexamethasone 2 Mg Tab) 6 mg PO DAILY [facility] Last Admin: 06/13/21 09:31 Dose: 6 mg Documented by: Enoxaparin Sodium (Enoxaparin 30 Mg/0.3 Ml Syringe) 30 mg SQ HS [facility] Last Admin: 06/12/21 20:39 Dose: 30 mg Documented by: Ergocalciferol (Ergocalciferol 1,250 Mcg (50,000 Iu) Capsule) 1,250 mcg PO WE [facility] Last Admin: 06/12/21 10:26 Dose: 1,250 mcg Documented by: Furosemide (Furosemide 10 Mg/Ml 4 Ml Vial) 40 mg IV Q12HR [facility] Ceftriaxone Sodium 1 gm/ (Sodium Chloride) 50 mls @ 100 mls/hr IVPB Q12HR [facility]; Protocol Last Admin: 06/13/21 09:32 Dose: 100 mls/hr Documented by: Sodium Chloride (Saline 0.9%) 1,000 mls @ 50 mls/hr IV .Q20H [facility] Last Admin: 06/12/21 18:13 Dose: 50 mls/hr Documented by: Insulin Aspart (Insulin Aspart (Novolog) 100 Unit/Ml Vial) 0 unit SQ [facility]; Protocol Last Admin: 06/13/21 12:36 Dose: 5 unit Documented by: Insulin Detemir (Insulin Detemir (Levemir) 100 Unit/Ml Syr) 10 unit SQ HS [facility] [place] Last Admin: 06/12/21 20:40 Dose: 10 unit Documented by: Isosorbide Mononitrate (Isosorbide Mononitrate Er 30 Mg Tab.Er.24h) 30 mg PO DAILY [facility] Last Admin: 06/13/21 09:32 Dose: 30 mg Documented by: Magnesium Oxide (Magnesium Oxide 400 Mg Tab) 400 mg PO DAILY [facility] [place] Last Admin: 06/13/21 09:31 Dose: 400 mg Documented by: Metoprolol Tartrate (Metoprolol Tartrate 50 Mg Tab) 100 mg PO BID-W/MEALS [facility] [place] Last Admin: 06/13/21 06:34 Dose: 100 mg Documented by: Multivitamins (Multivitamins, Thera 1 Each Tab) 1 each PO DAILY [facility] [place] Last Admin: 06/13/21 09:32 Dose: 1 each Documented by: Pantoprazole Sodium (Pantoprazole 40 Mg Tablet) 40 mg PO DAILY [facility] [place] Last Admin: 06/13/21 09:31 Dose: 40 mg Documented by: Sodium Bicarbonate (Sodium Bicarbonate Tab 650 Mg Tab) 650 mg PO TID [facility] Last Admin: 06/13/21 09:31 Dose: 650 mg Documented by: Zinc Sulfate (Zinc Sulfate 220 Mg Cap) 220 mg PO DAILY [facility] [place] Last Admin: 06/13/21 09:32 Dose: 220 mg Documented by: Past medical history to include: Coronary artery disease with stent/bypass, mitral valve repair, CHF, diabetes, hyperlipidemia, hypertension, obstructive sleep apnea does not use CPAP, hypothyroid, Social history: Lives with . No smoking or alcohol Physical examination: VITAL SIGNS: 98, 51, 18, 134/62, 97% on 4 L GENERAL: laying in bed, sleepy, tired. LUNGS: Respiratory rate increased; PSYCH: Unable to assess, sleepy NEUROLOGICAL: Cranial nerves grossly intact; no facial asymmetry, moving all 4 limbs Rest of exam per cardiology and nursing Investigations June 13: Potassium 4.4 bicarb 19 BUN 51 creatinine 2.27 June 12: White count [age]-year-old woman 10.9 platelets 214 potassium 4.5. 41 creatinine 2.06 Pro-calcitonin 0.11 White count 6.4 hemoglobin 12.1 platelets 215 pressure 4.9 bicarb 16 BUN 41 creatinine 2.16 COVID-19: PCR: Detected Influenza type A type B RSV: Not detected EKG tracing personally reviewed by me-AV paced rhythm. Rate 50 Chest x-ray film personally reviewed by me-right basilar infiltrate Assessment and plan: -Right lower lobe pneumonia, suspect gram-negative organism: IV ceftriaxone 1 g every 12 -COVID-19 positive Vitamin C vitamin D zinc, dexamethasone -Acute hypoxic respiratory failure secondary to COVID-19 and pneumonia: Was told respond On 4 L nasal cannula -Acute metabolic encephalopathy/delirium from pneumonia COVID-19 --Acute on chronic congestive heart failure exacerbation from systolic dysfunction EF 35-40%, from underlying coronary artery disease, IV Lasix 40 mg twice a day -Moderate to severe tricuspid regurgitation, nontraumatic Follow clinically -Coronary artery with stent/bypass Metoprolol 100 mg twice a day, Lipitor 40 mg -Diabetes mellitus type 2, uncontrolled with hyperglycemia Subcu Levemir. Follow Accu-Cheks -Essential hypertension: Uncontrolled amlodipine 5 mg bid. Lasix 40 mg a day.. Lopressor 100 mg twice a day -Chronic kidney disease stage III from nephrosclerosis and diabetic nephropathy Creatinine was 1.6 August of this year -Acute kidney injury combination of ATN from pneumonia Admission creatinine 2.16. -Hyperlipidemia 40 mg Lipitor daily -Acute metabolic acidosis from chronic kidney disease Sodium bicarbonate -Hypothyroid Synthroid 150 g daily -Obstructive status sleep apnea does not use CPAP -Obesity BMI 37.4 IV ceftriaxone 1 g every 12, dexamethasone, IV Lasix cutback to 40 every 12.. Follow with cardiology and ID.
[2021-06-13 16:58] LABS: Glucose,Whole Blood 194 mg/dL (75-99)
[2021-06-13] MEDS: SODIUM CHLORIDE 0.9% 1,000 ML IV SCH (17:49)
[2021-06-13] MEDS: ENOXAPARIN 30 MG/0.3 ML SYRINGE SQ SCH (20:25)
[2021-06-13 20:47] LABS: Glucose,Whole Blood 227 mg/dL (75-99)
[2021-06-13] MEDS: INSULIN DETEMIR (LEVEMIR) 100 UNIT/ML SYR SQ SCH (21:35)
--- NOTE | 2021-06-13 23:35 | P.PN ---
Subjective Progress Note Date: 06/13/21 Principal diagnosis: covid 19 infection Patient is a 70 year female with a past medical history significant for congestive heart failure in this patient presented to hospital with increasing shortness of breath and also noticed to have a positive covid test. On today's evaluation that is 06/13/2021 the patient denies having any fever or any chills, the patient is breathing more comfortably, patient denies having any chest pain no worsening cough or sputum production no abdominal pain or diarrhea Objective - Vital Signs Vital signs: Vital Signs Temp 99.2 F 06/13/21 15:48 Pulse 50 L 06/13/21 15:48 Resp 18 06/13/21 15:48 BP 130/62 06/13/21 15:48 Pulse Ox 96 06/13/21 15:48 Intake & Output 06/13/21 06/13/21 06/14/21 06:59 18:59 06:59 Intake Total 236 Output Total 0 750 Balance 0 -514 Weight 89.811 kg Intake: Oral 236 Output: Urine 0 750 Other: Voiding Method Indwelling Catheter Indwelling Catheter # Bowel Movements 1 - Exam GENERAL DESCRIPTION: An elderly female lying in bed in no distress RESPIRATORY SYSTEM: Unlabored breathing , decreased breath sounds at bases HEART: S1 S2 regular rate and rhythm , ABDOMEN: Soft , no tenderness EXTREMITIES: No edema feet - Labs CBC & Chem 7: 06/12/21 06:50 06/13/21 07:56 Labs: Abnormal Lab Results - Last 24 Hours (Table) 06/13/21 06/13/21 06/13/21 Range/Units 06:26 07:56 07:56 Chloride 113 H (98-107) mmol/L Carbon Dioxide 19 L (22-30) mmol/L BUN 51 H (7-17) mg/dL Creatinine 2.27 H (0.52-1.04) mg/dL Glucose 199 H (74-99) mg/dL POC Glucose (mg/dL) 204 H (75-99) mg/dL Calcium 8.1 L (8.4-10.2) mg/dL Procalcitonin 0.11 H (0.02-0.09) ng/mL 06/13/21 06/13/21 06/13/21 Range/Units 12:22 16:54 20:46 Chloride (98-107) mmol/L Carbon Dioxide (22-30) mmol/L BUN (7-17) mg/dL Creatinine (0.52-1.04) mg/dL Glucose (74-99) mg/dL POC Glucose (mg/dL) 187 H 194 H 227 H (75-99) mg/dL Calcium (8.4-10.2) mg/dL Procalcitonin (0.02-0.09) ng/mL Microbiology - Last 24 Hours (Table) 06/11/21 14:13 Blood Culture - Preliminary Blood No Growth after 48 hours 06/11/21 13:55 Blood Culture - Preliminary Blood No Growth after 48 hours Assessment and Plan (1) COVID-19 Current Visit: Yes Status: Acute Code(s): U07.1 - COVID-19 SNOMED Code(s): 158502657 Plan: 1patient presented to hospital with increasing shortness of breath and cough w hich is likely multifactorial in this patient who do have a history of congestive heart failure with a chest x-ray has been suggestive mostly of CHF rather than the groundglass opacities typically seen with a COVID-19 infection however the patient did have a positive testing and did have a possible component of COVID-19 infection. Patient seemed Overall Clinical Improvement 2patient with renal insufficiency with a creatinine clearance less than 30, not an ideal candidate for remdesivir and the patient is not sick enough to require Baricitinab 3-patient to continue with the dexamethasone Lovenox zinc and ascorbic acid. 4droplet isolation and respiratory support Time with Patient: Less than 30
[2021-06-14] MEDS: ALBUTEROL HFA INHALER INHALATION SCH ×5 (03:27→21:44)
[2021-06-14 06:08] LABS: Glucose,Whole Blood 193 mg/dL (75-99)
[2021-06-14] MEDS: INSULIN ASPART (NovoLOG) 100 UNIT/ML VIAL SQ SCH ×4 (06:23→20:39)
[2021-06-14] MEDS: METOPROLOL TARTRATE 50 MG TAB PO SCH ×2 (06:23→17:14)
[2021-06-14 07:38] LABS: Anisocytosis Slight; Basophils % (A) 0 %; Eosinophils % (A) 0 %; HCT 33.4 % (34.0-46.0); HGB 10.3 gm/dL (11.4-16.0); Hypochromasia Moderate; Lymphocytes # (A) 0.5 k/uL (1.0-4.8); Lymphocytes % (A) 7 %; MCH 30.2 pg (25.0-35.0); MCHC 30.9 g/dL (31.0-37.0); MCV 97.7 fL (80.0-100.0); Mean Platelet Volume 7.5; Monocytes # (A) 0.4 k/uL (0-1.0); Monocytes % (A) 6 %; Neutrophils # (A) 6.3 k/uL (1.3-7.7); Neutrophils % (A) 86 %; Platelet Count 222 k/uL (150-450); RBC 3.42 m/uL (3.80-5.40); RDW 16.2 % (11.5-15.5); WBC 7.4 k/uL (3.8-10.6)
[2021-06-14 08:03] LABS: Calcium 8.2 mg/dL (8.4-10.2); Potassium 4.2 mmol/L (3.5-5.1)
[2021-06-14] MEDS: CLOPIDOGREL 75 MG TAB PO SCH (09:48)
[2021-06-14] MEDS: SODIUM BICARBONATE TAB 650 MG TAB PO SCH ×3 (09:48→20:46)
[2021-06-14] MEDS: MAGNESIUM OXIDE 400 MG TAB PO SCH (09:48)
[2021-06-14] MEDS: amLODIPine 5 MG TAB PO SCH (09:48)
[2021-06-14] MEDS: dexAMETHasone 2 MG TAB PO SCH (09:48)
[2021-06-14] MEDS: MULTIVITAMINS, THERA 1 EACH TAB PO SCH (09:48)
[2021-06-14] MEDS: CITALOPRAM HYDROBROMIDE 20 MG TAB PO SCH (09:48)
[2021-06-14] MEDS: ATORVASTATIN 40 MG TAB PO SCH (09:48)
[2021-06-14] MEDS: ISOSORBIDE MONONITRATE ER 30 MG TAB.ER.24H PO SCH (09:48)
[2021-06-14] MEDS: ASCORBIC ACID 500 MG TAB PO SCH ×2 (09:48→20:46)
[2021-06-14] MEDS: allopurinoL 300 MG TAB PO SCH (09:48)
[2021-06-14] MEDS: FUROSEMIDE 10 MG/ML 4 ML VIAL IV SCH (09:49)
[2021-06-14] MEDS: PANTOPRAZOLE 40 MG TABLET PO SCH (09:56)
[2021-06-14] MEDS: ZINC SULFATE 220 MG CAP PO SCH (09:56)
[2021-06-14 11:58] LABS: Glucose,Whole Blood 247 mg/dL (75-99)
--- NOTE | 2021-06-14 13:25 | P.PN ---
Subjective This is a 70 year old female with a past medical history of known coronary artery disease status post CABG with REYES to LAD, severe mitral regurgitation status post mitral valve repair, ischemic cardiomyopathy status post AICD, history of paroxysmal atrial fibrillation status post left atrial appendage occlusion, chronic kidney disease,. She follows with Dr. Nagy. We are consulted for congestive heart failure. Patient comes to Hospital with worsening shortness of breath bilateral leg edema and weight gain. She also endorses symptoms of cough, sputum production. Her symptoms have been getting progressively worse over the last few weeks and have gotten particularly worse over the last 48 hours. On admission, she was also found to be Covid19 positive. She was started on IV Lasix 40 mg every 8 hours on admission. Echocardiogram revealed an EF of 6065%, mild aortic stenosis with a peak/mean gradient of 11 mmHg/6mmHg, trace to mild mitral regurgitation, mitral valve repair, moderate tricuspid regurgitation, severe pulmonary hypertension with RVSP of 60 mmHg, pleural effusion, no pericardial effusion. 06/14/2021 Patient seen and examined at bedside, she denies any shortness of breath, appears short of breath on exam. Her lower extremity edema has improved 1+ bilaterally. She continues to have a cough with sputum production. No chest pain. Telemetry reviewed patient is a-v paced on the monitor. Worsening renal function today. She has been weaned to 3L nasal cannula She's currently maintained on amlodipine 5 mg daily, atorvastatin 40 mg daily, Plavix 75 mg daily, IV Lasix 40 mg every 8 hours, Imdur 30 mg daily, metoprolol tartrate 100 mg twice a day Blood pressure 144/68, heart rate 50, afebrile, saturations 94% on 3 L nasal cannula Labs: Sodium 141, potassium 4.2, BUN 55, serum creatinine 2.47 GENERAL: Well-appearing, well-nourished and in no acute distress. NECK: Supple without JVD or thyromegaly. LUNGS: Breath sounds rhonchi to auscultation bilaterally. Respiration equal and unlabored. No wheezes, rales or rhonchi. HEART: Regular rate and rhythm, S1 and S2 heard. EXTREMITIES: Normal range of motion, 1+ bilateral pitting edema. No clubbing or cyanosis. Peripheral pulses intact. ASSESSMENT Acute on chronic heart failure with preserved ejection fraction COVID-19 Infection Coronary artery disease status post CABG with REYES to LAD Severe mitral regurgitation status post prior mitral valve repair History of Ischemic cardiomyopathy status post AICD History of paroxysmal atrial fibrillation status post left atrial appendage occlusion Chronic kidney disease PLAN Transition to PO Lasix Monitor I's and O's, renal function and electrolytes Continue amlodipine 5 mg daily, atorvastatin 40 mg daily, Plavix 75 mg daily, Imdur, metoprolol Infectious disease following for covid-19 infection Further recommendations based on clinical course Nurse Practitioner note has been reviewed, I agree with a documented findings and plan of care. Patient was seen and examined. Objective - Vital Signs Vital signs: Vital Signs Temp 97.8 F 06/14/21 09:49 Pulse 50 L 06/14/21 09:49 Resp 18 06/14/21 09:49 BP 172/75 06/14/21 09:49 Pulse Ox 94 L 06/14/21 03:47 Intake & Output 06/13/21 06/14/21 06/14/21 18:59 06:59 18:59 Intake Total 236 590 118 Output Total 750 Balance -514 590 118 Weight 89.811 kg 99 kg Intake: Intake, IV Titration 350 Amount Sodium Chloride 0.9% 1, 300 000 ml @ 50 mls/hr IV . Q20H [facility] Rx#:[id number] cefTRIAXone 1 gm In 50 Sodium Chloride 0.9% 50 ml @ 100 mls/hr IVPB Q12HR [facility] Rx#:[id number] Oral 236 240 118 Output: Urine 750 Other: Voiding Method Indwelling Catheter Indwelling Catheter Indwelling Catheter - Labs CBC & Chem 7: 06/14/21 07:18 06/14/21 07:18 Labs: Abnormal Lab Results - Last 24 Hours (Table) 06/13/21 06/13/21 06/13/21 Range/Units 07:56 16:54 20:46 RBC (3.80-5.40) m/uL Hgb (11.4-16.0) gm/dL Hct (34.0-46.0) % MCHC (31.0-37.0) g/dL RDW (11.5-15.5) % Lymphocytes # (1.0-4.8) k/uL Chloride (98-107) mmol/L Carbon Dioxide (22-30) mmol/L BUN (7-17) mg/dL Creatinine (0.52-1.04) mg/dL Glucose (74-99) mg/dL POC Glucose (mg/dL) 194 H 227 H (75-99) mg/dL Calcium (8.4-10.2) mg/dL Procalcitonin 0.11 H (0.02-0.09) ng/mL 06/14/21 06/14/21 06/14/21 Range/Units 06:07 07:18 07:18 RBC 3.42 L (3.80-5.40) m/uL Hgb 10.3 L (11.4-16.0) gm/dL Hct 33.4 L (34.0-46.0) % MCHC 30.9 L (31.0-37.0) g/dL RDW 16.2 H (11.5-15.5) % Lymphocytes # 0.5 L (1.0-4.8) k/uL Chloride (98-107) mmol/L Carbon Dioxide (22-30) mmol/L BUN (7-17) mg/dL Creatinine (0.52-1.04) mg/dL Glucose (74-99) mg/dL POC Glucose (mg/dL) 193 H (75-99) mg/dL Calcium (8.4-10.2) mg/dL Procalcitonin 0.10 H (0.02-0.09) ng/mL 06/14/21 06/14/21 Range/Units 07:18 11:56 RBC (3.80-5.40) m/uL Hgb (11.4-16.0) gm/dL Hct (34.0-46.0) % MCHC (31.0-37.0) g/dL RDW (11.5-15.5) % Lymphocytes # (1.0-4.8) k/uL Chloride 113 H (98-107) mmol/L Carbon Dioxide 21 L (22-30) mmol/L BUN 55 H (7-17) mg/dL Creatinine 2.47 H (0.52-1.04) mg/dL Glucose 173 H (74-99) mg/dL POC Glucose (mg/dL) 247 H (75-99) mg/dL Calcium 8.2 L (8.4-10.2) mg/dL Procalcitonin (0.02-0.09) ng/mL Microbiology - Last 24 Hours (Table) 06/11/21 14:13 Blood Culture - Preliminary Blood No Growth after 48 hours 06/11/21 13:55 Blood Culture - Preliminary Blood No Growth after 48 hours
--- NOTE | 2021-06-14 14:19 | P.PN ---
Progress Note - Text Progress Note Date: 06/14/21 Chief Complaint: Short of breath History of presenting complaint: This is a pleasant 70-year-old patient of Dr. Moore. Chronic stable medical conditions include coronary artery disease with stent/bypass, diabetes, hypertension, hyperlipidemia, hypothyroid, obstructive sleep apnea does not use CPAP. stent to LAD in 2017. Mitral valve repair for severe mitral regurgitation Patient with 3 days not associated becoming increasingly short of breath. Congested cough. Chills. Noted some increasing swelling of lower extremity. Not really expectorating any phlegm. Tired rundown. Decreased appetite. Admitted with right lower lobe pneumonia, COVID-19, some CHF exacerbation, acute hypoxic respiratory failure. IV ceftriaxone. Dexamethasone. Oxygen June 12: Reclining in bed. Tired. Not much of an appetite. Having fevers. IV ceftriaxone. Started and IV Lasix per cardiology for CHF. Congested cough June 13: Patient was hallucinating last night. With agitation. Had to be given 1 dose of Haldol 5 mg. More restful this morning. Sleepy. Had about 50% of her lunch. Lasix decreased to IV 40 twice a day per cardiology. On dexamethasone June 14: Laying in bed. Feeling much better. Breathing better. Decreased cough. Oral intake better. Labs the patient sit up in a chair. IV Lasix discontinued. Active Medications Acetaminophen (Acetaminophen Tab 500 Mg Tab) 500 mg PO Q6HR PRN PRN Reason: Fever and/ or Pain Last Admin: 06/12/21 10:16 Dose: 500 mg Documented by: Albuterol Sulfate (Albuterol Hfa Inhaler) 2 puff INHALATION RT-Q4H [facility] Last Admin: 06/14/21 11:37 Dose: 2 puff Documented by: Allopurinol (Allopurinol 300 Mg Tab) 300 mg PO DAILY [facility] Last Admin: 06/14/21 09:48 Dose: 300 mg Documented by: Amlodipine Besylate (Amlodipine 5 Mg Tab) 5 mg PO DAILY [facility] Last Admin: 06/14/21 09:48 Dose: 5 mg Documented by: Ascorbic Acid (Ascorbic Acid 500 Mg Tab) 500 mg PO BID [facility] Last Admin: 06/14/21 09:48 Dose: 500 mg Documented by: Atorvastatin Calcium (Atorvastatin 40 Mg Tab) 40 mg PO DAILY [facility] Last Admin: 06/14/21 09:48 Dose: 40 mg Documented by: Citalopram Hydrobromide (Citalopram Hydrobromide 20 Mg Tab) 20 mg PO DAILY [facility] Last Admin: 06/14/21 09:48 Dose: 20 mg Documented by: Clopidogrel Bisulfate (Clopidogrel 75 Mg Tab) 75 mg PO DAILY [facility] Last Admin: 06/14/21 09:48 Dose: 75 mg Documented by: Dexamethasone (Dexamethasone 2 Mg Tab) 6 mg PO DAILY [facility] Last Admin: 06/14/21 09:48 Dose: 6 mg Documented by: Enoxaparin Sodium (Enoxaparin 30 Mg/0.3 Ml Syringe) 30 mg SQ HS [facility] Last Admin: 06/13/21 20:25 Dose: 30 mg Documented by: Ergocalciferol (Ergocalciferol 1,250 Mcg (50,000 Iu) Capsule) 1,250 mcg PO WE [facility] Last Admin: 06/12/21 10:26 Dose: 1,250 mcg Documented by: Furosemide (Furosemide 40 Mg Tab) 40 mg PO DAILY [facility] Ceftriaxone Sodium 1 gm/ (Sodium Chloride) 50 mls @ 100 mls/hr IVPB Q12HR [facility]; Protocol Last Admin: 06/14/21 09:49 Dose: 100 mls/hr Documented by: Sodium Chloride (Saline 0.9%) 1,000 mls @ 50 mls/hr IV .Q20H [facility] Last Admin: 06/13/21 17:49 Dose: 50 mls/hr Documented by: Insulin Aspart (Insulin Aspart (Novolog) 100 Unit/Ml Vial) 0 unit SQ [facility]; Protocol Last Admin: 06/14/21 13:26 Dose: 8 unit Documented by: Insulin Detemir (Insulin Detemir (Levemir) 100 Unit/Ml Syr) 10 unit SQ [facility] Last Admin: 06/13/21 21:35 Dose: 10 unit Documented by: Isosorbide Mononitrate (Isosorbide Mononitrate Er 30 Mg Tab.Er.24h) 30 mg PO DAILY [facility] Last Admin: 06/14/21 09:48 Dose: 30 mg Documented by: Magnesium Oxide (Magnesium Oxide 400 Mg Tab) 400 mg PO DAILY [facility] Last Admin: 06/14/21 09:48 Dose: 400 mg Documented by: Metoprolol Tartrate (Metoprolol Tartrate 50 Mg Tab) 100 mg PO BID-W/MEALS [facility] Last Admin: 06/14/21 06:23 Dose: 100 mg Documented by: Multivitamins (Multivitamins, Thera 1 Each Tab) 1 each PO DAILY [facility] Last Admin: 06/14/21 09:48 Dose: 1 each Documented by: Pantoprazole Sodium (Pantoprazole 40 Mg Tablet) 40 mg PO DAILY [facility] Last Admin: 06/14/21 09:56 Dose: 40 mg Documented by: Sodium Bicarbonate (Sodium Bicarbonate Tab 650 Mg Tab) 650 mg PO TID [facility] Last Admin: 06/14/21 09:48 Dose: 650 mg Documented by: Zinc Sulfate (Zinc Sulfate 220 Mg Cap) 220 mg PO DAILY [facility] Last Admin: 06/14/21 09:56 Dose: 220 mg Documented by: Past medical history to include: Coronary artery disease with stent/bypass, mitral valve repair, CHF, diabetes, hyperlipidemia, hypertension, obstructive sleep apnea does not use CPAP, hypothyroid, Social history: Lives with . No smoking or alcohol Physical examination: VITAL SIGNS: 97.5, 61, 18, 156/91, 94% on 3 L GENERAL: laying in bed, more comfortable LUNGS: Respiratory rate normal PSYCH: AO 3, mood and affect normal NEUROLOGICAL: Cranial nerves grossly intact; no facial asymmetry, moving all 4 limbs Rest of exam per cardiology and nursing Investigations June 13: Potassium 4.4 bicarb 19 BUN 51 creatinine 2.27 June 12: White count [age]-year-old woman 10.9 platelets 214 potassium 4.5. 41 creatinine 2.06 Pro-calcitonin 0.11 White count 6.4 hemoglobin 12.1 platelets 215 pressure 4.9 bicarb 16 BUN 41 creatinine 2.16 COVID-19: PCR: Detected Influenza type A type B RSV: Not detected EKG tracing personally reviewed by me-AV paced rhythm. Rate 50 Chest x-ray film personally reviewed by me-right basilar infiltrate Assessment and plan: -Right lower lobe pneumonia, suspect gram-negative organism:, Improving IV ceftriaxone 1 g every 12. Changed to Omnicef -COVID-19 positive Vitamin C vitamin D zinc, dexamethasone -Acute hypoxic respiratory failure secondary to COVID-19 and pneumonia: Slow improvement On 3 L nasal cannula -Acute metabolic encephalopathy/delirium from pneumonia COVID-19: Back to --Acute on chronic congestive heart failure exacerbation from systolic dysfunction EF 35-40%, from underlying coronary artery disease, : Improving IV Lasix 40 mg twice a day. Changed to by mouth Lasix 40 mg daily -Moderate to severe tricuspid regurgitation, nontraumatic Follow clinically -Coronary artery with stent/bypass Metoprolol 100 mg twice a day, Lipitor 40 mg -Diabetes mellitus type 2, uncontrolled with hyperglycemia, secondary to steroids Increase Subcu Levemir to 18 units. Follow Accu-Cheks -Essential hypertension: Uncontrolled amlodipine 5 mg bid. Lasix 40 mg a day.. Lopressor 100 mg twice a day -Chronic kidney disease stage III from nephrosclerosis and diabetic nephropathy Creatinine was 1.6 August of this year -Acute kidney injury combination of ATN from pneumonia Admission creatinine 2.16. Currently 2.47. -Hyperlipidemia 40 mg Lipitor daily -Acute metabolic acidosis from chronic kidney disease Sodium bicarbonate -Hypothyroid Synthroid 150 g daily -Obstructive status sleep apnea does not use CPAP -Obesity BMI 37.4 Changed to Omnicef, dexamethasone, Lasix changed to by mouth... Follow with cardiology and ID. hence patient sit up in a chair. Hopefully discharge in next 24 hours.
--- NOTE | 2021-06-14 15:56 | P.PN ---
Subjective Progress Note Date: 06/14/21 Principal diagnosis: covid 19 infection Patient is a 70 year female with a past medical history significant for congestive heart failure in this patient presented to hospital with increasing shortness of breath and also noticed to have a positive covid test. On today's evaluation that is 06/14/2021 the patient remains to be afebrile, the patient is breathing more comfortably on nasal cannula oxygen, patient denies having any chest pain no worsening cough or sputum production , the patient denies abdominal pain or diarrhea Objective - Vital Signs Vital signs: Vital Signs Temp 97.8 F 06/14/21 09:49 Pulse 50 L 06/14/21 09:49 Resp 18 06/14/21 09:49 BP 172/75 06/14/21 09:49 Pulse Ox 94 L 06/14/21 03:47 Intake & Output 06/13/21 06/14/21 06/14/21 18:59 06:59 18:59 Intake Total 236 590 118 Output Total 750 Balance -514 590 118 Weight 89.811 kg 99 kg Intake: Intake, IV Titration 350 Amount Sodium Chloride 0.9% 1, 300 000 ml @ 50 mls/hr IV . Q20H [facility] Rx#:[id number] cefTRIAXone 1 gm In 50 Sodium Chloride 0.9% 50 ml @ 100 mls/hr IVPB Q12HR [facility] Rx#:[id number] Oral 236 240 118 Output: Urine 750 Other: Voiding Method Indwelling Catheter Indwelling Catheter Indwelling Catheter - Exam GENERAL DESCRIPTION: An elderly female lying in bed in no distress RESPIRATORY SYSTEM: Unlabored breathing , decreased intensity of breath sounds HEART: S1 S2 regular rate and rhythm , ABDOMEN: Soft , no tenderness EXTREMITIES: No edema feet - Labs CBC & Chem 7: 06/14/21 07:18 06/14/21 07:18 Labs: Abnormal Lab Results - Last 24 Hours (Table) 06/13/21 06/13/21 06/13/21 Range/Units 07:56 16:54 20:46 RBC (3.80-5.40) m/uL Hgb (11.4-16.0) gm/dL Hct (34.0-46.0) % MCHC (31.0-37.0) g/dL RDW (11.5-15.5) % Lymphocytes # (1.0-4.8) k/uL Chloride (98-107) mmol/L Carbon Dioxide (22-30) mmol/L BUN (7-17) mg/dL Creatinine (0.52-1.04) mg/dL Glucose (74-99) mg/dL POC Glucose (mg/dL) 194 H 227 H (75-99) mg/dL Calcium (8.4-10.2) mg/dL Procalcitonin 0.11 H (0.02-0.09) ng/mL 06/14/21 06/14/21 06/14/21 Range/Units 06:07 07:18 07:18 RBC 3.42 L (3.80-5.40) m/uL Hgb 10.3 L (11.4-16.0) gm/dL Hct 33.4 L (34.0-46.0) % MCHC 30.9 L (31.0-37.0) g/dL RDW 16.2 H (11.5-15.5) % Lymphocytes # 0.5 L (1.0-4.8) k/uL Chloride (98-107) mmol/L Carbon Dioxide (22-30) mmol/L BUN (7-17) mg/dL Creatinine (0.52-1.04) mg/dL Glucose (74-99) mg/dL POC Glucose (mg/dL) 193 H (75-99) mg/dL Calcium (8.4-10.2) mg/dL Procalcitonin 0.10 H (0.02-0.09) ng/mL 06/14/21 06/14/21 Range/Units 07:18 11:56 RBC (3.80-5.40) m/uL Hgb (11.4-16.0) gm/dL Hct (34.0-46.0) % MCHC (31.0-37.0) g/dL RDW (11.5-15.5) % Lymphocytes # (1.0-4.8) k/uL Chloride 113 H (98-107) mmol/L Carbon Dioxide 21 L (22-30) mmol/L BUN 55 H (7-17) mg/dL Creatinine 2.47 H (0.52-1.04) mg/dL Glucose 173 H (74-99) mg/dL POC Glucose (mg/dL) 247 H (75-99) mg/dL Calcium 8.2 L (8.4-10.2) mg/dL Procalcitonin (0.02-0.09) ng/mL Microbiology - Last 24 Hours (Table) 06/11/21 14:13 Blood Culture - Preliminary Blood No Growth after 48 hours 06/11/21 13:55 Blood Culture - Preliminary Blood No Growth after 48 hours Assessment and Plan (1) COVID-19 Current Visit: Yes Status: Acute Code(s): U07.1 - COVID-19 SNOMED Code(s): 562941605 Plan: 1patient presented to hospital with increasing shortness of breath and cough which is likely multifactorial in this patient who do have a history of congestive heart failure with a chest x-ray has been suggestive mostly of CHF rather than the groundglass opacities typically seen with a COVID-19 infection however the patient did have a positive testing and did have a possible component of COVID-19 infection. Patient continued to show slow clinical improvement 2 patient to continue with the dexamethasone Lovenox zinc and ascorbic acid. 3droplet isolation and respiratory support Time with Patient: Less than 30
[2021-06-14 16:29] LABS: Glucose,Whole Blood 222 mg/dL (75-99)
[2021-06-14] MEDS: SODIUM CHLORIDE 0.9% 1,000 ML IV SCH (18:10)
[2021-06-14 20:03] LABS: Glucose,Whole Blood 173 mg/dL (75-99)
[2021-06-14] MEDS: INSULIN DETEMIR (LEVEMIR) 100 UNIT/ML SYR SQ SCH (20:46)
[2021-06-14] MEDS: ENOXAPARIN 30 MG/0.3 ML SYRINGE SQ SCH (20:46)
[2021-06-14] MEDS ORDERED: CEFDINIR 300 MG CAP PO SCH (21:00)
[2021-06-15] MEDS: ALBUTEROL HFA INHALER INHALATION SCH ×6 (00:43→20:39)
[2021-06-15 06:10] LABS: Glucose,Whole Blood 110 mg/dL (75-99)
[2021-06-15] MEDS: SODIUM CHLORIDE 0.9% 1,000 ML IV SCH (06:35)
[2021-06-15] MEDS: METOPROLOL TARTRATE 50 MG TAB PO SCH ×2 (06:37→17:09)
[2021-06-15] MEDS: INSULIN ASPART (NovoLOG) 100 UNIT/ML VIAL SQ SCH ×4 (06:37→20:53)
[2021-06-15] MEDS: CLOPIDOGREL 75 MG TAB PO SCH (09:01)
[2021-06-15] MEDS: dexAMETHasone 2 MG TAB PO SCH (09:01)
[2021-06-15] MEDS: CITALOPRAM HYDROBROMIDE 20 MG TAB PO SCH (09:01)
[2021-06-15] MEDS: amLODIPine 5 MG TAB PO SCH (09:01)
[2021-06-15] MEDS: FUROSEMIDE 40 MG TAB PO SCH (09:01)
[2021-06-15] MEDS: ASCORBIC ACID 500 MG TAB PO SCH ×2 (09:01→19:46)
[2021-06-15] MEDS: MULTIVITAMINS, THERA 1 EACH TAB PO SCH (09:01)
[2021-06-15] MEDS: allopurinoL 300 MG TAB PO SCH (09:01)
[2021-06-15] MEDS: MAGNESIUM OXIDE 400 MG TAB PO SCH (09:01)
[2021-06-15] MEDS: ISOSORBIDE MONONITRATE ER 30 MG TAB.ER.24H PO SCH (09:01)
[2021-06-15] MEDS: SODIUM BICARBONATE TAB 650 MG TAB PO SCH ×3 (09:01→19:47)
[2021-06-15] MEDS: ATORVASTATIN 40 MG TAB PO SCH (09:01)
[2021-06-15] MEDS: ZINC SULFATE 220 MG CAP PO SCH (09:01)
[2021-06-15] MEDS: PANTOPRAZOLE 40 MG TABLET PO SCH (09:06)
[2021-06-15 09:23] LABS: Calcium 8.6 mg/dL (8.4-10.2)
[2021-06-15 09:25] LABS: Potassium 4.4 mmol/L (3.5-5.1)
[2021-06-15 11:47] LABS: Glucose,Whole Blood 101 mg/dL (75-99)
--- NOTE | 2021-06-15 13:07 | P.PN ---
Subjective Patient is feeling better. She is less short of breath. Does not have chest pain. Leg edema has improved. On exam heart rate is 60 bpm afebrile blood pressure is 150 was 70 respirators 18 O2 sat is 96% on 2 L there is a jugular venous distention chest exam reveals bilateral rhonchi heart exam reveals first and second heart sounds no gallop is an extremities reveals 1+ pitting edema Labs show potassium of 4.4 BN is 52 creatinine is 1.9 Assessment and plan: Congestive heart failure exacerbation Coronavirus infection with "with pneumonia Coronary artery disease status post CABG Patient will continue oral Lasix and rest of her therapies Objective - Vital Signs Vital signs: Vital Signs Temp 98.1 F 06/15/21 12:11 Pulse 61 06/15/21 12:11 Resp 18 06/15/21 12:12 BP 157/60 06/15/21 12:11 Pulse Ox 96 06/15/21 12:12 Intake & Output 06/14/21 06/15/21 06/15/21 18:59 06:59 18:59 Intake Total 838 740 118 Output Total 500 200 Balance 338 540 118 Intake: Intake, IV Titration 500 Amount Sodium Chloride 0.9% 1, 500 000 ml @ 50 mls/hr IV . Q20H [facility] Rx#:[id number] Oral 838 240 118 Output: Urine 500 200 Other: Voiding Method Indwelling Catheter Indwelling Catheter Indwelling Catheter # Bowel Movements 0 - Labs CBC & Chem 7: 06/14/21 07:18 06/15/21 08:50 Labs: Abnormal Lab Results - Last 24 Hours (Table) 06/14/21 06/14/21 06/15/21 Range/Units 16:26 19:59 06:09 Chloride (98-107) mmol/L BUN (7-17) mg/dL Creatinine (0.52-1.04) mg/dL POC Glucose (mg/dL) 222 H 173 H 110 H (75-99) mg/dL 06/15/21 06/15/21 Range/Units 08:50 11:45 Chloride 113 H (98-107) mmol/L BUN 52 H (7-17) mg/dL Creatinine 1.99 H (0.52-1.04) mg/dL POC Glucose (mg/dL) 101 H (75-99) mg/dL Microbiology - Last 24 Hours (Table) 06/11/21 14:13 Blood Culture - Preliminary Blood No Growth after 72 hours 06/11/21 13:55 Blood Culture - Preliminary Blood No Growth after 72 hours
[2021-06-15 16:53] LABS: Glucose,Whole Blood 201 mg/dL (75-99)
--- NOTE | 2021-06-15 17:27 | XR ---
EXAMINATION TYPE: XR chest 1V portable DATE OF EXAM: 06/15/2021 COMPARISON: 06/11/2021 HISTORY: Short of breath TECHNIQUE: FINDINGS: Heart is enlarged. There is mild pulmonary congestion. There is left axillary pacemaker. Th ere are sternal wires. There is slight blunting of the costophrenic angles. IMPRESSION: There is evidence for some mild heart failure which is improved compared to last exam. Th ere is decreased right pleural effusion.
[2021-06-15] MEDS: ENOXAPARIN 30 MG/0.3 ML SYRINGE SQ SCH (19:47)
[2021-06-15] MEDS: CEFDINIR 300 MG CAP PO SCH (19:47)
[2021-06-15 20:13] LABS: Glucose,Whole Blood 264 mg/dL (75-99)
--- NOTE | 2021-06-15 20:16 | PN ---
PROGRESS NOTE DATE OF SERVICE: 06/15/2021 This 70-year-old woman who was admitted with right lower lobe pneumonia is being closely monitored. The patient also is Covid positive. No chest pain. Occasional cough. PHYSICAL EXAMINATION: Pulse is 61, blood pressure 115/60, respiration 18. HEENT: Conjunctivae normal. CARDIOVASCULAR SYSTEM: S1/S2. RESPIRATORY: Few rhonchi and crackles. ABDOMEN: Soft, nontender. NERVOUS SYSTEM: No focal deficits. LABS: Sodium 142, creatinine 1.9. Other labs are noted. ASSESSMENT: 1. Acute right lower lobe pneumonia. 2. Covid-19 positive. 3. Acute hypoxic respiratory failure. 4. Congestive heart failure acute exacerbation with acute on chronic systolic dysfunction, ejection fraction 35-40%. RECOMMENDATIONS: Recommend to continue current management, continue symptomatic treatment. Continue with diuretics. Continue with antibiotics. Closely monitor with multiple consultants and further recommendations to follow. Repeat labs in the morning. MMODL / IJN: [id number] /
[2021-06-15] MEDS: INSULIN DETEMIR (LEVEMIR) 100 UNIT/ML SYR SQ SCH (20:26)
--- NOTE | 2021-06-15 22:03 | P.PN ---
Subjective Progress Note Date: 06/15/21 Principal diagnosis: covid 19 infection Patient is a 70 year female with a past medical history significant for congestive heart failure in this patient presented to hospital with increasing shortness of breath and also noticed to have a positive covid test. On today's evaluation that is 06/15/2021 the patient is afebrile, the patient is breathing comfortably on nasal cannula oxygen, patient denies having any chest pain , the patient did have minimal dry cough , the patient denies abdominal pain or diarrhea Objective - Vital Signs Vital signs: Vital Signs Temp 98.1 F 06/15/21 12:11 Pulse 61 06/15/21 12:11 Resp 18 06/15/21 14:58 BP 157/60 06/15/21 12:11 Pulse Ox 96 06/15/21 12:12 Intake & Output 06/14/21 06/15/21 06/15/21 18:59 06:59 18:59 Intake Total 838 740 118 Output Total 500 200 Balance 338 540 118 Intake: Intake, IV Titration 500 Amount Sodium Chloride 0.9% 1, 500 000 ml @ 50 mls/hr IV . Q20H [facility] Rx#:[id number] Oral 838 240 118 Output: Urine 500 200 Other: Voiding Method Indwelling Catheter Indwelling Catheter Indwelling Catheter # Voids 3 # Bowel Movements 0 - Exam GENERAL DESCRIPTION: An elderly female lying in bed in no distress RESPIRATORY SYSTEM: Unlabored breathing , decreased intensity of breath sounds HEART: S1 S2 regular rate and rhythm , ABDOMEN: Soft , no tenderness EXTREMITIES: No edema feet - Labs CBC & Chem 7: 06/14/21 07:18 06/15/21 08:50 Labs: Abnormal Lab Results - Last 24 Hours (Table) 06/14/21 06/14/21 06/15/21 Range/Units 16:26 19:59 06:09 Chloride (98-107) mmol/L BUN (7-17) mg/dL Creatinine (0.52-1.04) mg/dL POC Glucose (mg/dL) 222 H 173 H 110 H (75-99) mg/dL 06/15/21 06/15/21 Range/Units 08:50 11:45 Chloride 113 H (98-107) mmol/L BUN 52 H (7-17) mg/dL Creatinine 1.99 H (0.52-1.04) mg/dL POC Glucose (mg/dL) 101 H (75-99) mg/dL Microbiology - Last 24 Hours (Table) 06/11/21 14:13 Blood Culture - Preliminary Blood No Growth after 96 hours 06/11/21 13:55 Blood Culture - Preliminary Blood No Growth after 96 hours Assessment and Plan (1) COVID-19 Current Visit: Yes Status: Acute Code(s): U07.1 - COVID-19 SNOMED Code(s): 483552789 Plan: 1patient presented to hospital with increasing shortness of breath and cough which is likely multifactorial in this patient who do have a history of congestive heart failure with a chest x-ray has been suggestive mostly of CHF rather than the groundglass opacities typically seen with a COVID-19 infection however the patient did have a positive testing and did have a possible component of COVID-19 infection. Patient did have slow clinical improvement 2 patient is currently covered with the dexamethasone Lovenox zinc and ascorbic acid. 3droplet isolation and respiratory support Time with Patient: Less than 30
[2021-06-16] MEDS: ALBUTEROL HFA INHALER INHALATION SCH ×6 (00:18→19:24)
[2021-06-16 06:14] LABS: Glucose,Whole Blood 186 mg/dL (75-99)
[2021-06-16] MEDS: SODIUM CHLORIDE 0.9% 1,000 ML IV SCH (06:29)
[2021-06-16] MEDS: METOPROLOL TARTRATE 50 MG TAB PO SCH ×2 (06:32→16:54)
[2021-06-16] MEDS: INSULIN ASPART (NovoLOG) 100 UNIT/ML VIAL SQ SCH ×4 (06:32→20:21)
[2021-06-16] MEDS: MAGNESIUM OXIDE 400 MG TAB PO SCH (07:45)
[2021-06-16] MEDS: FUROSEMIDE 40 MG TAB PO SCH (07:45)
[2021-06-16] MEDS: ASCORBIC ACID 500 MG TAB PO SCH ×2 (07:45→20:21)
[2021-06-16] MEDS: MULTIVITAMINS, THERA 1 EACH TAB PO SCH (07:45)
[2021-06-16] MEDS: ZINC SULFATE 220 MG CAP PO SCH (07:46)
[2021-06-16] MEDS: amLODIPine 5 MG TAB PO SCH (07:46)
[2021-06-16] MEDS: CLOPIDOGREL 75 MG TAB PO SCH (07:46)
[2021-06-16] MEDS: PANTOPRAZOLE 40 MG TABLET PO SCH (07:46)
[2021-06-16] MEDS: dexAMETHasone 2 MG TAB PO SCH (07:46)
[2021-06-16] MEDS: ATORVASTATIN 40 MG TAB PO SCH ×2 (07:46→20:21)
[2021-06-16] MEDS: CITALOPRAM HYDROBROMIDE 20 MG TAB PO SCH (07:47)
[2021-06-16] MEDS: allopurinoL 300 MG TAB PO SCH (07:47)
[2021-06-16] MEDS: SODIUM BICARBONATE TAB 650 MG TAB PO SCH ×3 (07:47→20:22)
[2021-06-16] MEDS: ISOSORBIDE MONONITRATE ER 30 MG TAB.ER.24H PO SCH (07:47)
[2021-06-16 09:36] LABS: Anisocytosis Slight; Basophils % (A) 0 %; Eosinophils % (A) 0 %; HCT 36.8 % (34.0-46.0); HGB 11.2 gm/dL (11.4-16.0); Hypochromasia Marked; Lymphocytes # (A) 0.9 k/uL (1.0-4.8); Lymphocytes % (A) 11 %; MCH 29.9 pg (25.0-35.0); MCHC 30.5 g/dL (31.0-37.0); MCV 97.9 fL (80.0-100.0); Macrocytosis Slight; Monocytes # (A) 0.5 k/uL (0-1.0); Monocytes % (A) 6 %; Neutrophils # (A) 6.6 k/uL (1.3-7.7); Neutrophils % (A) 79 %; Platelet Count 254 k/uL (150-450); RBC 3.76 m/uL (3.80-5.40); RDW 16.5 % (11.5-15.5); WBC 8.3 k/uL (3.8-10.6)
[2021-06-16 09:54] LABS: Albumin 3.3 g/dL (3.5-5.0); Calcium 8.5 mg/dL (8.4-10.2); Potassium 4.5 mmol/L (3.5-5.1); Total Bilirubin 0.7 mg/dL (0.2-1.3); Total Protein 6.4 g/dL (6.3-8.2)
[2021-06-16 11:45] LABS: Glucose,Whole Blood 202 mg/dL (75-99)
--- NOTE | 2021-06-16 12:47 | P.PN ---
Subjective Patient is getting better. She is only needing 2 L of nasal O2. She is more awake and alert. Denies chest pain. She is currently receiving albuterol inhaler. On exam comfortable at rest vital signs are stable there is a jugular venous distention chest exam reveals bilateral rhonchi heart exam reveals first and second heart sounds no gallop no murmur abdomen is soft exam extremities did not reveal any edema per for pulses are felt Labs show that the BUN/creatinine are elevated Assessment and plan: covid pneumonia CAD status post CABG CHF exacerbation Continue by mouth Lasix inhaler steroids and rest of her medications Objective - Vital Signs Vital signs: Vital Signs Temp 98.9 F 06/16/21 08:00 Pulse 62 06/16/21 08:00 Resp 20 06/16/21 08:00 BP 174/77 06/16/21 08:00 Pulse Ox 94 L 06/16/21 08:00 Intake & Output 06/15/21 06/16/21 06/16/21 17:59 06:59 18:59 Intake Total 100 Output Total 1300 Balance -1200 Intake: Oral 100 Blood Product Output: Urine 1300 Other: Voiding Method Indwelling Catheter # Voids - Labs CBC & Chem 7: 06/16/21 08:47 06/16/21 08:47 Labs: Abnormal Lab Results - Last 24 Hours (Table) 06/15/21 06/15/21 06/15/21 Range/Units 11:45 16:51 19:56 RBC (3.80-5.40) m/uL Hgb (11.4-16.0) gm/dL MCHC (31.0-37.0) g/dL RDW (11.5-15.5) % Lymphocytes # (1.0-4.8) k/uL Chloride (98-107) mmol/L BUN (7-17) mg/dL Creatinine (0.52-1.04) mg/dL Glucose (74-99) mg/dL POC Glucose (mg/dL) 101 H 201 H 264 H (75-99) mg/dL AST (14-36) U/L Albumin (3.5-5.0) g/dL 06/16/21 06/16/21 06/16/21 Range/Units 06:13 08:47 08:47 RBC 3.76 L (3.80-5.40) m/uL Hgb 11.2 L (11.4-16.0) gm/dL MCHC 30.5 L (31.0-37.0) g/dL RDW 16.5 H (11.5-15.5) % Lymphocytes # 0.9 L (1.0-4.8) k/uL Chloride 110 H (98-107) mmol/L BUN 52 H (7-17) mg/dL Creatinine 1.70 H (0.52-1.04) mg/dL Glucose 191 H (74-99) mg/dL POC Glucose (mg/dL) 186 H (75-99) mg/dL AST 42 H (14-36) U/L Albumin 3.3 L (3.5-5.0) g/dL 06/16/21 Range/Units 11:44 RBC (3.80-5.40) m/uL Hgb (11.4-16.0) gm/dL MCHC (31.0-37.0) g/dL RDW (11.5-15.5) % Lymphocytes # (1.0-4.8) k/uL Chloride (98-107) mmol/L BUN (7-17) mg/dL Creatinine (0.52-1.04) mg/dL Glucose (74-99) mg/dL POC Glucose (mg/dL) 202 H (75-99) mg/dL AST (14-36) U/L Albumin (3.5-5.0) g/dL Microbiology - Last 24 Hours (Table) 06/11/21 14:13 Blood Culture - Preliminary Blood No Growth after 96 hours 06/11/21 13:55 Blood Culture - Preliminary Blood No Growth after 96 hours
[2021-06-16] MEDS: hydrALAZINE HCL 25 MG TAB PO SCH ×2 (16:54→20:22)
[2021-06-16 16:59] LABS: Glucose,Whole Blood 201 mg/dL (75-99)
--- NOTE | 2021-06-16 18:44 | PN ---
PROGRESS NOTE DATE OF SERVICE: 06/16/2021 This 70-year-old woman who was admitted with acute left lower lobe pneumonia also had COVID infection. The patient is on broad-spectrum IV antibiotics. The most recent chest x-ray, which was reviewed personally by me, showed still some increased markings on the right hemisphere. PHYSICAL EXAMINATION: Pulse 70, blood pressure 172/73, respiration 20. HEENT: Conjunctivae normal. NECK: No jugular venous distention. CARDIOVASCULAR: S1, S2 muffled. RESPIRATION: Breath sounds diminished at the bases. Scattered rhonchi. ABDOMEN: Soft. NERVOUS SYSTEM: No focal deficit. LABS: Creatinine 1.70. ASSESSMENT: 1. Acute right lower lobe pneumonia. 2. COVID-19 positive. 3. Acute hypoxic respiratory failure. 4. Congestive heart failure, acute exacerbation, with acute on chronic systolic dysfunction, ejection fraction 35% to 40%. RECOMMENDATIONS AND DISCUSSION: I recommend to continue current medications, continue with the monitoring, symptomatic treatment. See orders for further details. Adjust blood pressure medications. Further recommendations to follow. MMODL / IJN: [id number] /
[2021-06-16 20:06] LABS: Glucose,Whole Blood 196 mg/dL (75-99)
[2021-06-16] MEDS: CEFDINIR 300 MG CAP PO SCH (20:21)
[2021-06-16] MEDS: INSULIN DETEMIR (LEVEMIR) 100 UNIT/ML SYR SQ SCH (20:21)
[2021-06-16] MEDS: ENOXAPARIN 30 MG/0.3 ML SYRINGE SQ SCH (20:22)
[2021-06-17] MEDS: ALBUTEROL HFA INHALER INHALATION SCH ×5 (01:05→16:37)
[2021-06-17 06:13] LABS: Glucose,Whole Blood 69 mg/dL (75-99)
[2021-06-17] MEDS: INSULIN ASPART (NovoLOG) 100 UNIT/ML VIAL SQ SCH ×2 (06:19→12:31)
[2021-06-17 06:27] LABS: Glucose,Whole Blood 72 mg/dL (75-99)
[2021-06-17] MEDS: METOPROLOL TARTRATE 50 MG TAB PO SCH (06:31)
[2021-06-17 07:56] LABS: Calcium 8.9 mg/dL (8.4-10.2); Potassium 4.1 mmol/L (3.5-5.1)
[2021-06-17 09:00] LABS: Anisocytosis Slight; Basophils % (A) 0 %; Eosinophils % (A) 0 %; HGB 11.8 gm/dL (11.4-16.0); Hypochromasia Slight; Lymphocytes % (A) 9 %; MCH 29.5 pg (25.0-35.0); MCHC 30.4 g/dL (31.0-37.0); MCV 97.2 fL (80.0-100.0); Mean Platelet Volume 7.7; Monocytes # (A) 0.6 k/uL (0-1.0); Monocytes % (A) 5 %; Neutrophils # (A) 9.2 k/uL (1.3-7.7); Neutrophils % (A) 84 %; Platelet Count 261 k/uL (150-450); RBC 4.02 m/uL (3.80-5.40); RDW 16.4 % (11.5-15.5)
[2021-06-17] MEDS ORDERED: amLODIPine 10 MG TAB PO SCH (09:00)
[2021-06-17] MEDS: ZINC SULFATE 220 MG CAP PO SCH (09:24)
[2021-06-17] MEDS: CITALOPRAM HYDROBROMIDE 20 MG TAB PO SCH (09:24)
[2021-06-17] MEDS: ATORVASTATIN 40 MG TAB PO SCH (09:24)
[2021-06-17] MEDS: allopurinoL 300 MG TAB PO SCH (09:24)
[2021-06-17] MEDS: hydrALAZINE HCL 25 MG TAB PO SCH (09:24)
[2021-06-17] MEDS: PANTOPRAZOLE 40 MG TABLET PO SCH (09:24)
[2021-06-17] MEDS: FUROSEMIDE 40 MG TAB PO SCH (09:24)
[2021-06-17] MEDS: MULTIVITAMINS, THERA 1 EACH TAB PO SCH (09:24)
[2021-06-17] MEDS: ASCORBIC ACID 500 MG TAB PO SCH (09:24)
[2021-06-17] MEDS: ISOSORBIDE MONONITRATE ER 30 MG TAB.ER.24H PO SCH (09:24)
[2021-06-17] MEDS: SODIUM BICARBONATE TAB 650 MG TAB PO SCH (09:24)
[2021-06-17] MEDS: MAGNESIUM OXIDE 400 MG TAB PO SCH (09:25)
[2021-06-17] MEDS: CLOPIDOGREL 75 MG TAB PO SCH (09:25)
[2021-06-17] MEDS: dexAMETHasone 2 MG TAB PO SCH (09:25)
[2021-06-17 11:51] LABS: Glucose,Whole Blood 96 mg/dL (75-99)
[2021-06-17 12:33] VITALS: BP 167/73; TEMP 97.4
--- NOTE | 2021-06-17 12:42 | P.PN ---
Subjective Progress Note Date: 06/16/21 Principal diagnosis: covid 19 infection Patient is a 70 year female with a past medical history significant for congestive heart failure in this patient presented to hospital with increasing shortness of breath and also noticed to have a positive covid test. On today's evaluation that is 06/16/2021 the patient remains to be afebrile, the patient is breathing comfortably on nasal cannula oxygen, patient denies chest pain , the patient did have minimal dry cough , the patient denies abdominal pain or diarrhea Objective - Vital Signs Vital signs: Vital Signs Temp 99.2 F 06/16/21 12:00 Pulse 62 06/16/21 13:59 Resp 20 06/16/21 13:59 BP 165/72 06/16/21 12:00 Pulse Ox 93 L 06/16/21 12:00 Intake & Output 06/15/21 06/16/21 06/16/21 17:59 06:59 18:59 Intake Total 200 Output Total 1300 Balance -1100 Intake: Oral 200 Blood Product Output: Urine 1300 Other: Voiding Method Indwelling Catheter # Voids - Exam GENERAL DESCRIPTION: An elderly female lying in bed in no distress RESPIRATORY SYSTEM: Unlabored breathing , decreased intensity of breath sounds HEART: S1 S2 regular rate and rhythm , ABDOMEN: Soft , no tenderness EXTREMITIES: No edema feet - Labs CBC & Chem 7: 06/17/21 06:14 06/17/21 06:14 Labs: Abnormal Lab Results - Last 24 Hours (Table) 06/15/21 06/15/21 06/16/21 Range/Units 16:51 19:56 06:13 RBC (3.80-5.40) m/uL Hgb (11.4-16.0) gm/dL MCHC (31.0-37.0) g/dL RDW (11.5-15.5) % Lymphocytes # (1.0-4.8) k/uL Chloride (98-107) mmol/L BUN (7-17) mg/dL Creatinine (0.52-1.04) mg/dL Glucose (74-99) mg/dL POC Glucose (mg/dL) 201 H 264 H 186 H (75-99) mg/dL AST (14-36) U/L Albumin (3.5-5.0) g/dL 06/16/21 06/16/21 06/16/21 Range/Units 08:47 08:47 11:44 RBC 3.76 L (3.80-5.40) m/uL Hgb 11.2 L (11.4-16.0) gm/dL MCHC 30.5 L (31.0-37.0) g/dL RDW 16.5 H (11.5-15.5) % Lymphocytes # 0.9 L (1.0-4.8) k/uL Chloride 110 H (98-107) mmol/L BUN 52 H (7-17) mg/dL Creatinine 1.70 H (0.52-1.04) mg/dL Glucose 191 H (74-99) mg/dL POC Glucose (mg/dL) 202 H (75-99) mg/dL AST 42 H (14-36) U/L Albumin 3.3 L (3.5-5.0) g/dL Microbiology - Last 24 Hours (Table) 06/11/21 14:13 Blood Culture - Preliminary Blood No Growth after 96 hours 06/11/21 13:55 Blood Culture - Preliminary Blood No Growth after 96 hours Assessment and Plan (1) COVID-19 Current Visit: Yes Status: Acute Code(s): U07.1 - COVID-19 SNOMED Code(s): 083550673 Plan: 1patient presented to hospital with increasing shortness of breath and cough which is likely multifactorial in this patient who do have a history of congestive heart failure with a chest x-ray has been suggestive mostly of CHF rather than the groundglass opacities typically seen with a COVID-19 infection however the patient did have a positive testing and did have a possible co mponent of COVID-19 infection. Patient did have slow clinical improvement 2 patient to continue with the dexamethasone Lovenox zinc and ascorbic acid. 3droplet isolation and respiratory support Time with Patient: Less than 30
--- NOTE | 2021-06-17 12:43 | P.PN ---
Subjective Progress Note Date: 06/17/21 Principal diagnosis: covid 19 infection Patient is a 70 year female with a past medical history significant for congestive heart failure in this patient presented to hospital with increasing shortness of breath and also noticed to have a positive covid test. On today's evaluation that is 06/17/2021 the patient denies any fever or any chills, the patient is breathing comfortably on 2 L nasal cannula oxygen, patient denies chest pain , the patient did have minimal dry cough , the patient denies abdominal pain or diarrhea Objective - Vital Signs Vital signs: Vital Signs Temp 97.4 F L 06/17/21 08:00 Pulse 59 L 06/17/21 08:00 Resp 19 06/17/21 03:38 BP 167/73 06/17/21 08:00 Pulse Ox 96 06/17/21 08:00 Intake & Output 06/16/21 06/17/21 06/17/21 18:59 06:59 18:59 Intake Total 320 540 118 Output Total 2300 300 Balance -1980 540 -182 Intake: Oral 320 540 118 Output: Urine 2300 300 Other: Voiding Method Indwelling Catheter Indwelling Catheter - Exam GENERAL DESCRIPTION: An elderly female lying in bed in no distress RESPIRATORY SYSTEM: Unlabored breathing , decreased intensity of breath sounds HEART: S1 S2 regular rate and rhythm , ABDOMEN: Soft , no tenderness EXTREMITIES: No edema feet - Labs CBC & Chem 7: 06/17/21 06:14 06/17/21 06:14 Labs: Abnormal Lab Results - Last 24 Hours (Table) 06/16/21 06/16/21 06/17/21 Range/Units 16:57 20:03 06:07 WBC (3.8-10.6) k/uL MCHC (31.0-37.0) g/dL RDW (11.5-15.5) % Neutrophils # (1.3-7.7) k/uL Chloride (98-107) mmol/L BUN (7-17) mg/dL Creatinine (0.52-1.04) mg/dL Glucose (74-99) mg/dL POC Glucose (mg/dL) 201 H 196 H 69 L (75-99) mg/dL 06/17/21 06/17/21 06/17/21 Range/Units 06:14 06:14 06:24 WBC 11.0 H (3.8-10.6) k/uL MCHC 30.4 L (31.0-37.0) g/dL RDW 16.4 H (11.5-15.5) % Neutrophils # 9.2 H (1.3-7.7) k/uL Chloride 109 H (98-107) mmol/L BUN 47 H (7-17) mg/dL Creatinine 1.68 H (0.52-1.04) mg/dL Glucose 61 L (74-99) mg/dL POC Glucose (mg/dL) 72 L (75-99) mg/dL Microbiology - Last 24 Hours (Table) 06/11/21 13:55 Blood Culture - Preliminary Blood No Growth after 120 hours 06/11/21 14:13 Blood Culture - Preliminary Blood No Growth after 120 hours Assessment and Plan (1) COVID-19 Current Visit: Yes Status: Acute Code(s): U07.1 - COVID-19 SNOMED Code(s): 700550042 Plan: 1patient presented to hospital with increasing shortness of breath and cough which is likely multifactorial in this patient who do have a history of congestive heart failure with a chest x-ray has been suggestive mostly of CHF rather than the groundglass opacities typically seen with a COVID-19 infection however the patient did have a positive testing and did have a possible component of COVID-19 infection. 2 patient seemed to have shown overall clinical improvement and will continue with the dexamethasone Lovenox zinc and ascorbic acid. 3droplet isolation and respiratory support Time with Patient: Less than 30
[2021-06-17 13:28] VITALS: RESP 18
[2021-06-17 13:57] VITALS: PULSE 62
[2021-06-17 16:29] LABS: Glucose,Whole Blood 177 mg/dL (75-99)
== END 2021-06-17 17:02 | disposition home or self-care (01) | DRG 291 ==
LOC: EC 13:11 → 3SCARD 17:49
PROVIDERS: ADMIT Hospitalist; ATTEND Hospitalist
DX: I13.0 Hypertensive heart and chronic kidney disease with heart failure and stage 1 through stage 4 chronic kidney disease, or unspecified chronic kidney disease (principal); I50.23 Acute on chronic systolic (congestive) heart failure; U07.1 COVID-19; J12.82 Pneumonia due to coronavirus disease 2019; J96.01 Acute respiratory failure with hypoxia; N17.0 Acute kidney failure with tubular necrosis; G93.41 Metabolic encephalopathy; J15.6 Pneumonia due to other Gram-negative bacteria; E87.2 Acidosis; Z68.41 Body mass index [BMI] 40.0-44.9, adult; I48.0 Paroxysmal atrial fibrillation; I27.20 Pulmonary hypertension, unspecified; I08.2 Rheumatic disorders of both aortic and tricuspid valves; E11.36 Type 2 diabetes mellitus with diabetic cataract; E11.22 Type 2 diabetes mellitus with diabetic chronic kidney disease; E11.65 Type 2 diabetes mellitus with hyperglycemia; N18.30 Chronic kidney disease, stage 3 unspecified; Z79.4 Long term (current) use of insulin; E66.9 Obesity, unspecified; D72.810 Lymphocytopenia; I25.10 Atherosclerotic heart disease of native coronary artery without angina pectoris; I25.5 Ischemic cardiomyopathy; E78.5 Hyperlipidemia, unspecified; G47.33 Obstructive sleep apnea (adult) (pediatric); T38.0X5A Adverse effect of glucocorticoids and synthetic analogues, initial encounter; I25.2 Old myocardial infarction; E03.9 Hypothyroidism, unspecified; F32.A Depression, unspecified; H26.9 Unspecified cataract; Z79.02 Long term (current) use of antithrombotics/antiplatelets; Z79.899 Other long term (current) drug therapy; Z95.1 Presence of aortocoronary bypass graft; Z95.2 Presence of prosthetic heart valve; Z95.810 Presence of automatic (implantable) cardiac defibrillator; Z95.5 Presence of coronary angioplasty implant and graft; Z87.2 Personal history of diseases of the skin and subcutaneous tissue; Z98.42 Cataract extraction status, left eye; Z87.440 Personal history of urinary (tract) infections; Z98.890 Other specified postprocedural states; Z71.3 Dietary counseling and surveillance; Z83.3 Family history of diabetes mellitus; Z82.49 Family history of ischemic heart disease and other diseases of the circulatory system
CPT/HCPCS: 36415; 71045; 71046; 80048; 80053; 83605; 83615; 83735; 83880; 84145; 84484; 85025; 85379; 85610; 85730; 86140; 87040; 87635; 87636; 93005; 93306; 94640; 94760; 96365; 96366; 96372; 96375; 99285

== ENCOUNTER → 2021-06-20 | Outpatient (CLI) | payer MEDICARE ==
[2021-06-20 22:57] LABS: Basophils # (A) 0.01 X 10*3/uL (0.00-0.10); Basophils % (A) 0.1 %; Eosinophils # (A) 0.18 X 10*3/uL (0.04-0.35); Eosinophils % (A) 1.6 %; HCT 39.3 % (37.2-46.3); Immature Grans, Automated 0.5 %; Lymphocytes # (A) 1.53 X 10*3/uL (0.90-5.00); Lymphocytes % (A) 13.6 %; MCH 29.1 pg (27.0-32.0); MCHC 30.5 g/dL (32.0-37.0); MCV 95.4 fL (80.0-97.0); Mean Platelet Volume 10.4 fL (9.5-12.2); Monocytes # (A) 1.07 X 10*3/uL (0.20-1.00); Monocytes % (A) 9.5 %; NRBC Per 100 WBC 0 /100 WBCS (0.0-0.0); Neutrophils # (A) 8.42 X 10*3/uL (1.80-7.70); Neutrophils % (A) 74.7 %; Platelet Count 265 X 10*3/uL (140-440); RBC 4.12 X 10*6/uL (4.10-5.20); RDW 16.1 % (11.5-14.5); WBC 11.27 X 10*3/uL (4.50-10.00)
[2021-06-21 00:53] LABS: African American GFR (CKD) 40.2 (60.0-200.0); Anion Gap 14.7 mmol/L (10.00-18.00); BUN/Creat Ratio 19.53 Ratio (12.00-20.00); Blood Urea Nitrogen 29.3 mg/dL (9.0-27.0); Calcium 9.1 mg/dL (8.7-10.3); Carbon Dioxide 23.3 mmol/L (20.0-27.5); Non-African American GFR(CKD) 34.7 (60.0-200.0); Potassium 4.5 mmol/L (3.5-5.5)
== END | disposition home or self-care (01) ==
LOC: LABWHC1 15:02
PROVIDERS: ATTEND Registered Nurse
DX: D64.9 Anemia, unspecified (principal); R79.89 Other specified abnormal findings of blood chemistry
CPT/HCPCS: 36415; 80048; 85025

== ENCOUNTER 2024-10-09 14:35 | Observation (INO) | payer MEDICARE ==
[2024-10-09] MEDS: ASPIRIN 81 MG PO STA (14:55)
[2024-10-09] MEDS: NITROGLYCERIN OINT 1 INCH/GM PACKET TOPICAL STA (15:05)
[2024-10-09 15:10] LABS: Basophils # (A) 0.02 10*3/uL (0.00-0.10); Basophils % (A) 0.2 %; Eosinophils # (A) 0.10 10*3/uL (0.04-0.35); Eosinophils % (A) 1.1 %; HCT 34.2 % (37.2-46.3); HGB 11.6 g/dL (12.0-15.0); Lymphocytes # (A) 1.93 10*3/uL (0.90-5.00); Lymphocytes % (A) 21.9 %; MCH 31.4 pg (27.0-32.0); MCHC 33.9 g/dL (32.0-37.0); MCV 92.4 fL (80.0-97.0); Monocytes # (A) 0.69 10*3/uL (0.20-1.00); Monocytes % (A) 7.8 %; Neutrophils # (A) 6.05 10*3/uL (1.80-7.70); Neutrophils % (A) 68.5 %; Platelet Count 189 10*3/uL (140-440); RBC 3.70 10*6/uL (4.10-5.20); RDW 14.5 % (11.5-14.5); WBC 8.83 10*3/uL (4.50-10.00)
[2024-10-09 15:19] LABS: INR 0.9 (<1.2); Partial Thromboplastin Time 29.5 sec (22.0-30.0); Prothrombin Time 10.4 sec (10.0-12.5)
[2024-10-09 15:21] LABS: ALT 16 U/L (4-34); AST 24 U/L (14-36); African American GFR (CKD) 21 (>60 ml/min/1.73 sqM); Albumin 3.7 g/dL (3.5-5.0); Alkaline Phosphatase 80 U/L (38-126); Anion Gap 8 mmol/L; Blood Urea Nitrogen 41 mg/dL (7-17); Calcium 9.1 mg/dL (8.4-10.2); Carbon Dioxide 22 mmol/L (22-30); Chloride 111 mmol/L (98-107); Glucose 104 mg/dL (74-99); Magnesium 2.7 mg/dL (1.6-2.3); Non-African American GFR(CKD) 18 (>60 ml/min/1.73 sqM); Potassium 3.8 mmol/L (3.5-5.1); Sodium 141 mmol/L (137-145); Total Protein 5.9 g/dL (6.3-8.2)
--- NOTE | 2024-10-09 15:56 | ED ---
General Adult HPI - General Chief complaint: Chest Pain Stated complaint: Chest pain, weakness Time Seen by Provider: 10/09/24 14:40 Source: patient, EMS, RN notes reviewed, old records reviewed Mode of arrival: EMS Limitations: no limitations - History of Present Illness Initial comments: This is a 73-year-old female who presents to the emergency department complaining of chest pain. Patient states she has had 3 stents placed in the past. Patient states her chest pain started 2 days ago and has been persistent since. Patient denies any radiation of the pain. Patient states she is short of breath. Patient also states for about a week she has been feeling a little dizzy but 2 days ago is when the chest pain started. Patient denies any fever chills or cough. Patient denies any headache patient denies numbness weakness. - Related Data Home Medications Medication Instructions Recorded Confirmed Pantoprazole [Protonix] 40 mg PO DAILY 07/25/17 05/31/22 allopurinoL [Zyloprim] 300 mg PO DAILY 11/26/18 05/31/22 Ergocalciferol [Vitamin D2 (1250 1,250 mcg PO WE 02/10/21 05/31/22 Mcg = 01602 Iu)] Isosorbide Mononitrate ER [Imdur] 30 mg PO DAILY 02/10/21 05/31/22 Magnesium Oxide [Razo] 500 mg PO DAILY 06/11/21 05/31/22 Multivit/Folic Acid/Vit K1 1 tab PO DAILY 06/11/21 05/31/22 [One-A-Day Women's 50 Plus Tab] Atorvastatin [Lipitor] 80 mg PO HS 05/31/22 05/31/22 Citalopram Hydrobromide [CeleXA] 10 mg PO HS 05/31/22 05/31/22 Insulin Detemir (Levemir) [Levemir] 30 unit SQ DAILY 05/31/22 05/31/22 Levothyroxine Sodium [Euthyrox] 175 mcg PO DAILY 05/31/22 05/31/22 Previous Rx's Medication Instructions Recorded amLODIPine [Norvasc] 10 mg PO DAILY 30 Days #60 tab 06/17/21 hydrALAZINE HCL [Apresoline] 25 mg PO TID 30 Days #90 tab 06/17/21 Dapagliflozin Propanediol [Farxiga] 10 mg PO DAILY #30 tab 06/05/22 Furosemide [Lasix] 20 mg PO DAILY@1500 #30 tab 06/05/22 Furosemide [Lasix] 40 mg PO DAILY #0 06/05/22 Metoprolol Tartrate [Lopressor] 75 mg PO BID-W/MEALS #120 tab 06/05/22 Allergies Allergy/AdvReac Type Severity Reaction Status Date / Time No Known Allergies Allergy Verified 10/09/24 14:43 Review of Systems ROS Statement: Those systems with pertinent positive or pertinent negative responses have been documented in the HPI. ROS Other: All systems not noted in ROS Statement are negative. Past Medical History Past Medical History: Coronary Artery Disease (CAD), Chest Pain / Angina, Heart Failure, Diabetes Mellitus, Eye Disorder, Hyperlipidemia, Hypertension, Myocardial Infarction ([place]), Renal Disease, Sleep Apnea/CPAP/BIPAP, Thyroid Disorder Additional Past Medical History / Comment(s): Right cataract, CAD with stent to proximal LAD 03/31/2015, stent to proximal LAD 2016 Last Myocardial Infarction Date:: 03/31/2015 History of Any Multi-Drug Resistant Organisms: None Reported Past Surgical History: Breast Surgery, Heart Catheterization, Heart Catheterization With Stent, Pacemaker Additional Past Surgical History / Comment(s): buttocks sx-pt stated:" they told me I had gangrene and had sx to remove", lt cataract, Heart Cath 11/18/16. Past Anesthesia/Blood Transfusion Reactions: No Reported Reaction Additional Past Anesthesia/Blood Transfusion Reaction / Comment(s): confused post anethesia became agressive not sure cause Date of Last Stent Placement:: 2014 Type of Cardiac Device: Permanent Pacemaker Device Placement Date:: Unknown Past Psychological History: Depression Smoking Status: Never smoker Past Alcohol Use History: None Reported Past Drug Use History: None Reported - Past Family History Father Family Medical History: Unable to Obtain Additional Family Medical History / Comment(s): Father from motor vehicle accident Mother Family Medical History: Diabetes Mellitus, Hypertension General Exam - General Exam Comments Initial Comments: GENERAL: Patient is well-developed and well-nourished. Patient is nontoxic and well- hydrated and is in mild distress. ENT: Neck is soft and supple. No significant lymphadenopathy is noted. Oropharynx is clear. Moist mucous membranes. Neck has full range of motion without eliciting any pain. EYES: The sclera were anicteric and conjunctiva were pink and moist. Extraocular movements were intact and pupils were equal round and reactive to light. Eyelids were unremarkable. PULMONARY: Unlabored respirations. Good breath sounds bilaterally. No audible rales rhon chi or wheezing was noted. CARDIOVASCULAR: There is a regular rate and rhythm without any murmurs gallops or rubs. ABDOMEN: Soft and nontender with normal bowel sounds. SKIN: Skin is clear with no lesions or rashes and otherwise unremarkable. NEUROLOGIC: Patient is alert and oriented x3. Cranial nerves II through XII are grossly intact. Motor and sensory are also intact. Normal speech, volume and content. Symmetrical smile. MUSCULOSKELETAL: Normal extremities with adequate strength and full range of motion. LYMPHATICS: No significant lymphadenopathy is noted PSYCHIATRIC: Normal psychiatric evaluation. Limitations: no limitations Course Vital Signs 10/09/24 10/09/24 14:37 16:41 Temperature 98.0 F Pulse Rate 68 66 Respiratory 18 16 Rate Blood Pressure 113/59 131/71 O2 Sat by Pulse 97 95 Oximetry Medical Decision Making - Medical Decision Making EKG is interpreted by myself. EKG shows a paced rhythm at 66 bpm SD interval 165 QRS 131 QT interval is 468 QTc is 481. Patient's EKG shows no ST segment elevation Was pt. sent in by a medical professional or institution (, PA, DIRECTOR RECORDS MANAGEMENT, urgent care, hospital, or [facility]...) When possible be specific @ -No Did you speak to anyone other than the patient for history (EMS, parent, family, police, friend...)? What history was obtained from this source @ -No Did you review nursing and triage notes (agree or disagree)? Why? @ -I reviewed and agree with nursing and triage notes Were old charts reviewed (outside hosp., previous admission, EMS record, old EKG, old radiological studies, urgent care reports/EKG's, [facility] records)? Report findings @ -No old charts were reviewed Differential Diagnosis? @ -Differential Chest Pain: Stable Angina, Unstable Angina, STEMI, NSTEMI Aortic Dissection, Pneumothorax, Musculoskeletal, Esophageal Spasm GERD, Cholecystitis, Pancreatitis, Zoster, this is not meant to be an all-inclusive list. EKG interpreted by me (3pts min.). @ -As above X-rays interpreted by me (1pt min.). @ -Chest x-ray shows no acute abnormality CT interpreted by me (1pt min.). @ -None done U/S interpreted by me (1pt. min.). @ -None done What testing was considered but not performed or refused? (CT, X-rays, U/S, labs)? Why? @ -None What meds were considered but not given or refused? Why? @ -None Did you discuss the management of the patient with other professionals (professionals i.e. DrJackelyn, PA, DIRECTOR RECORDS MANAGEMENT, lab, RT, psych nurse, social staff worker, recruitment consultant, teacher, air antisubmarine officer, caseworker protective services)? Give summary @ -I spoke with [facility] physicians agreed to admit the patient admitted the patient wrote admitting orders Was smoking cessation discussed for >3mins.? @ -No Was critical care preformed (if so, how long)? @ -No Were there social determinants of health that impacted care today? How? (Homelessness, low income, unemployed, alcoholism, drug addiction, transportation, low edu. Level, literacy, decrease access to med. care, custodial, rehab)? @ -No Was there de-escalation of care discussed even if they declined (Discuss DNR or withdrawal of care, Hospice)? DNR status @ -No What co-morbidities impacted this encounter? (DM, HTN, Smoking, COPD, CAD, Ca ncer, CVA, ARF, Chemo, Hep., AIDS, mental health diagnosis, sleep apnea, morbid obesity)? @ -None Was patient admitted / discharged? Hospital course, mention meds given and route, prescriptions, significant lab abnormalities, going to OR and other pertinent info. @ -Patient stated that the Nitropaste did reduce her pain. [facility] the patient wrote a bitting orders Undiagnosed new problem with uncertain prognosis? @ -No Drug Therapy requiring intensive monitoring for toxicity (Heparin, Nitro, Insulin, Cardizem)? @ -No Were any procedures done? @ -No Diagnosis/symptom? @ -Chest pain Acute, or Chronic, or Acute on Chronic? @ -Acute Uncomplicated (without systemic symptoms) or Complicated (systemic symptoms)? @ -Complicated Side effects of treatment? @ -No Exacerbation, Progression, or Severe Exacerbation? @ -No Poses a threat to life or bodily function? How? (Chest pain, [place], [place], pneumonia, PE, COPD, DKA, ARF, appy, cholecystitis, CVA, Diverticulitis, Homicidal, Suicidal, threat to staff... and all critical care pts) @ -Yes this could lead to an [place] and endorgan dysfunction - Lab Data Result diagrams: 10/09/24 15:00 10/09/24 15:00 Lab Results 10/09/24 10/09/24 10/09/24 Range/Units 15:00 15:00 15:00 WBC 8.83 (4.50-10.00) 10*3/uL RBC 3.70 L (4.10-5.20) 10*6/uL Hgb 11.6 L (12.0-15.0) g/dL Hct 34.2 L (37.2-46.3) % MCV 92.4 (80.0-97.0) fL MCH 31.4 (27.0-32.0) pg MCHC 33.9 (32.0-37.0) g/dL Plt Count 189 (140-440) 10*3/uL MPV 10.9 (9.5-12.2) fL Immature Gran % (Auto) 0.5 % Neutrophils % 68.5 % Lymphocytes % 21.9 % Monocytes % 7.8 % Eosinophils % 1.1 % Basophils % 0.2 % Immature Gran # 0.04 (0.00-0.04) 10*3/uL Neutrophils # 6.05 (1.80-7.70) 10*3/uL Lymphocytes # 1.93 (0.90-5.00) 10*3/uL Monocytes # 0.69 (0.20-1.00) 10*3/uL Eosinophils # 0.10 (0.04-0.35) 10*3/uL Basophils # 0.02 (0.00-0.10) 10*3/uL PT 10.4 (10.0-12.5) sec INR 0.9 (<1.2) APTT 29.5 (22.0-30.0) sec Sodium 141 (137-145) mmol/L Potassium 3.8 (3.5-5.1) mmol/L Chloride 111 H (98-107) mmol/L Carbon Dioxide 22 (22-30) mmol/L Anion Gap 8 mmol/L BUN 41 H (7-17) mg/dL Creatinine 2.56 H (0.52-1.04) mg/dL Est GFR (CKD-EPI)AfAm 21 (>60 ml/min/1.73 sqM) Est GFR (CKD-EPI)NonAf 18 (>60 ml/min/1.73 sqM) Glucose 104 H (74-99) mg/dL Calcium 9.1 (8.4-10.2) mg/dL Magnesium 2.7 H (1.6-2.3) mg/dL Total Bilirubin 0.7 (0.2-1.3) mg/dL AST 24 (14-36) U/L ALT 16 (4-34) U/L Alkaline Phosphatase 80 (38-126) U/L Troponin I (0.000-0.034) ng/mL Total Protein 5.9 L (6.3-8.2) g/dL Albumin 3.7 (3.5-5.0) g/dL 10/09/24 Range/Units 15:00 WBC (4.50-10.00) 10*3/uL RBC (4.10-5.20) 10*6/uL Hgb (12.0-15.0) g/dL Hct (37.2-46.3) % MCV (80.0-97.0) fL MCH (27.0-32.0) pg MCHC (32.0-37.0) g/dL Plt Count (140-440) 10*3/uL MPV (9.5-12.2) fL Immature Gran % (Auto) % Neutrophils % % Lymphocytes % % Monocytes % % Eosinophils % % Basophils % % Immature Gran # (0.00-0.04) 10*3/uL Neutrophils # (1.80-7.70) 10*3/uL Lymphocytes # (0.90-5.00) 10*3/uL Monocytes # (0.20-1.00) 10*3/uL Eosinophils # (0.04-0.35) 10*3/uL Basophils # (0.00-0.10) 10*3/uL PT (10.0-12.5) sec INR (<1.2) APTT (22.0-30.0) sec Sodium (137-145) mmol/L Potassium (3.5-5.1) mmol/L Chloride (98-107) mmol/L Carbon Dioxide (22-30) mmol/L Anion Gap mmol/L BUN (7-17) mg/dL Creatinine (0.52-1.04) mg/dL Est GFR (CKD-EPI)AfAm (>60 ml/min/1.73 sqM) Est GFR (CKD-EPI)NonAf (>60 ml/min/1.73 sqM) Glucose (74-99) mg/dL Calcium (8.4-10.2) mg/dL Magnesium (1.6-2.3) mg/dL Total Bilirubin (0.2-1.3) mg/dL AST (14-36) U/L ALT (4-34) U/L Alkaline Phosphatase (38-126) U/L Troponin I <0.012 (0.000-0.034) ng/mL Total Protein (6.3-8.2) g/dL Albumin (3.5-5.0) g/dL Disposition Clinical Impression: Chest pain Disposition: ADMITTED IP TO THIS [facility] Referrals: Eduin Moore MD [Primary Care Provider] - 1-2 days Time of Disposition: 17:13
[2024-10-09 16:42] VITALS: RESP 16
--- NOTE | 2024-10-09 16:45 | XR ---
EXAMINATION TYPE: XR chest 2V DATE OF EXAM: 10/09/2024 3:20 PM CLINICAL INDICATION:Female, 73 years old with history of Chest Pain; [facility] COMPARISON: Chest radiograph 06/03/2022 TECHNIQUE: XR chest 2V Frontal view of the chest. FINDINGS: Lungs/Pleura: There is no evidence of pleural effusion or pneumothorax. Chronic senescent parenchyma l changes. Pulmonary vascularity: Unremarkable. Heart/mediastinum: Cardiomediastinal silhouette is unremarkable. Multiple lead cardiac conduction dev ice overlying the left hemithorax with lead tips projecting over the right ventricle and right atrium . Musculoskeletal: No acute osseous pathology. Midline sternotomy wires and surgical clips project over the mediastinum. IMPRESSION: Chronic changes without acute process. [facility], , 10/09/2024 4:43 PM
[2024-10-09] MEDS ORDERED: NITROGLYCERIN SL TABS 0.4 MG TAB SUBLINGUAL PRN (17:15)
[2024-10-09] MEDS ORDERED: DEXTROSE 50% SYRINGE 50 ML IVP PRN ×2 (17:40)
[2024-10-09 18:25] LABS: Glucose,Whole Blood 102 mg/dL (70-110)
[2024-10-09] MEDS: INSULIN LISPRO (HumaLOG) 100 UNIT/ML 10 mL VL SQ SCH (18:27)
[2024-10-09] MEDS: METOPROLOL TARTRATE 25 MG TAB PO SCH (18:31)
[2024-10-09 20:23] LABS: Glucose,Whole Blood 116 mg/dL (70-110)
[2024-10-09] MEDS: ATORVASTATIN 80 MG TAB PO SCH (20:55)
[2024-10-09] MEDS: FUROSEMIDE 40 MG TAB PO SCH (20:55)
[2024-10-09] MEDS: NITROGLYCERIN OINT 1 INCH/GM PACKET TOPICAL SCH (20:56)
[2024-10-09] MEDS ORDERED: CITALOPRAM HYDROBROMIDE 10 MG TAB PO SCH (21:00)
[2024-10-10 05:38] LABS: Glucose,Whole Blood 99 mg/dL (70-110)
[2024-10-10] MEDS: LEVOTHYROXINE 100 MCG TAB PO SCH (06:16)
[2024-10-10] MEDS ORDERED: LEVOTHYROXINE 88 MCG TAB PO SCH (06:30)
[2024-10-10] MEDS ORDERED: FUROSEMIDE 40 MG TAB PO SCH (09:00)
[2024-10-10 09:20] LABS: Glucose,Whole Blood 91 mg/dL (70-110)
[2024-10-10] MEDS: INSULIN GLARGINE (LANTUS) 100 UNIT/ML SYR SQ SCH (09:26)
[2024-10-10] MEDS: DAPAGLIFLOZIN PROPANEDIOL 10 MG TABLET PO SCH (09:28)
[2024-10-10] MEDS: PANTOPRAZOLE 40 MG TABLET PO SCH (09:28)
[2024-10-10] MEDS: ASPIRIN 325 MG TAB PO SCH (09:28)
[2024-10-10] MEDS: ISOSORBIDE MONONITRATE ER 30 MG TAB.ER.24H PO SCH (09:28)
[2024-10-10] MEDS: amLODIPine 10 MG TAB PO SCH (09:28)
[2024-10-10] MEDS: METOPROLOL TARTRATE 25 MG TAB PO SCH (09:28)
[2024-10-10] MEDS: MULTIVITAMINS, THERA 1 EACH TAB PO SCH (09:28)
[2024-10-10 10:56] LABS: Cholesterol 75.00 mg/dL (0.00-200.00); HDL Cholesterol 32.00 mg/dL (40.00-60.00); LDL Cholesterol,Calculated 21.0 mg/dL (0.0-131.0); Triglycerides 110.00 mg/dL (0.00-149.00); VLDL Calculation 22.00 mg/dL (5.00-40.00)
--- NOTE | 2024-10-10 12:03 | P.CRDCN ---
History of Present Illness Consult date: 10/10/24 Consult reason: chest pain History of present illness: This is a 73-year-old female patient of Dr. Kristina Nagy with past medical history of coronary artery disease status post CABG, paroxysmal atrial fibrillation, sick sinus syndrome status post permanent pacemaker, mitral regurgitation, s/p mitral valve repair. We have been asked to evaluate the patient for chest pain. Patient was last seen in the office on 08/03/[address] Kristina Nagy. At that time, plan was to repeat echocardiogram which has not yet been done. Patient gives history of developing chest pain and dizziness that started about 3 weeks ago. The pain was intermittent and started about 2 weeks ago. -EKG: Paced rhythm. -Chest x-ray: No acute process. -Laboratory studies: Troponin negative x 3. BUN 41, creatinine 2.56, hemoglobin 11.6. Triglycerides 110, cholesterol 75, LDL 21. -Home cardiac medications according to office notes: Amlodipine 10 mg daily, aspirin 81 mg daily, atorvastatin 80 mg daily, Farxiga 10 mg daily, Lasix 40 mg daily, hydralazine 25 mg 3 times daily, Imdur 30 mg daily, magnesium oxide 500 mg daily, metoprolol tartrate 25 mg twice daily, rosuvastatin 40 mg daily, patient is also on Ozempic. -Lexiscan Cardiolite stress test performed on 01/20/2024 in the office revealed inconclusive EKG part of the stress test due to baseline EKG abnormalities. Normal myocardial perfusion and function. -Echocardiogram performed in the office on 01/09/2024 revealed EF 55%, mild left ventricular hypertrophy, mild aortic regurgitation. Mitral valve prosthesis with normal function. Moderate tricuspid regurgitation. PASP 47 mmHg. Mild pulmonic regurgitation. P -Biventricular ICD, [facility], 10/13/2019. -CABG 01/03/[address] Sawant with single-vessel CABG using left internal mammary artery to the left anterior descending artery and mitral valve repair. Review Of Systems: At the time of my exam: CONSTITUTIONAL: Denies fever or chills. HEENT: Denies blurred vision, vision changes, or eye pain. Denies hemoptysis CARDIOVASCULAR: Denies chest pain. Denies orthopnea. Denies PND. Denies palpitations RESPIRATORY: Denies shortness of breath. GASTROINTESTINAL: Denies abdominal pain. Denies nausea or vomiting. HEMATOLOGIC: Denies bleeding disorders. GENITOURINARY: Denies any blood in urine. SKIN: Denies puritis. Denies rash. Physical examination: Gen: This is 73-year-old female in no acute distress VS: reviewed HEENT: Head is atraumatic, normocephalic. Pupils equal, round. Sclerae is anicteric. NECK: Supple. No JVD. LUNGS: Clear to auscultation. No wheezes or rhonchi. No intercostal retractions. HEART: Regular rate and rhythm. No murmur. ABDOMEN: Soft No tenderness. EXTREMITIES: No pedal edema. No calf tenderness. NEUROLOGICAL: Patient is awake, alert and oriented x3. Assessment: Atypical chest pain, acute coronary syndrome ruled out History of coronary artery disease with previous CABG Paroxysmal atrial fibrillation not on anticoagulation due to risk of bleeding Sick sinus syndrome status post ICD Mitral regurgitation status post mitral valve repair Home Plan: Resume patient's home cardiac medications Interrogate ICD No need to repeat echocardiogram at this time Plan for medical management Further recommendations to follow based upon clinical course Thank you kindly for this consultation. Nurse practitioner note has been reviewed, I agree with documented findings and plan of care. Patient was seen and examined. Past Medical History Past Medical History: Coronary Artery Disease (CAD), Chest Pain / Angina, Heart Failure, Diabetes Mellitus, Eye Disorder, Hyperlipidemia, Hypertension, Myocardial Infarction ([place]), Renal Disease, Sleep Apnea/CPAP/BIPAP, Thyroid Disorder Additional Past Medical History / Comment(s): Right cataract, CAD with stent to proximal LAD 03/31/2015, stent to proximal LAD 2016. pt is unsure if she has 1 or 2 stents Last Myocardial Infarction Date:: 03/31/2015 History of Any Multi-Drug Resistant Organisms: None Reported Past Surgical History: Breast Surgery, Heart Catheterization, Heart Catheterization With Stent, Pacemaker Additional Past Surgical History / Comment(s): buttocks sx-pt stated:" they told me I had gangrene and had sx to remove", lt cataract, Heart Cath 11/18/16. Past Anesthesia/Blood Transfusion Reactions: No Reported Reaction Additional Past Anesthesia/Blood Transfusion Reaction / Comment(s): confused post anethesia became agressive not sure cause Date of Last Stent Placement:: 2014 Type of Cardiac Device: Permanent Pacemaker Device Placement Date:: Unknown Past Psychological History: Depression Additional Psychological History / Comment(s): Pt resides with her spouse and 2 adult children. Pt is independent. Smoking Status: Never smoker Past Alcohol Use History: None Reported Past Drug Use History: None Reported - Past Family History Father Family Medical History: Unable to Obtain Additional Family Medical History / Comment(s): Father from motor vehicle accident Mother Family Medical History: Diabetes Mellitus, Hypertension Medications and Allergies Home Medications Medication Instructions Recorded Confirmed Type Pantoprazole [Protonix] 40 mg PO DAILY 07/25/17 10/09/24 History allopurinoL [Zyloprim] 300 mg PO BID 11/26/18 10/09/24 History Ergocalciferol [Vitamin D2 (1250 1,250 mcg PO WE 02/10/21 10/09/24 History Mcg = 67177 Iu)] Isosorbide Mononitrate ER [Imdur] 30 mg PO DAILY 02/10/21 10/09/24 History Magnesium Oxide [Razo] 500 mg PO DAILY 06/11/21 10/09/24 History Multivit/Folic Acid/Vit K1 1 tab PO DAILY 06/11/21 10/09/24 History [One-A-Day Women's 50 Plus Tab] Dapagliflozin Propanediol [Farxiga] 10 mg PO DAILY #30 tab 06/05/22 10/09/24 Rx Furosemide [Lasix] 40 mg PO BID 10/09/24 10/09/24 History Levothyroxine Sodium [Synthroid] 200 mcg PO DAILY 10/09/24 10/09/24 History Metoprolol Tartrate [Lopressor] 75 mg PO DIRECTED 10/09/24 10/09/24 History Rosuvastatin Calcium [Crestor] 40 mg PO DAILY 10/09/24 10/09/24 History Semaglutide [Ozempic] 0.5 mg SQ DIRECTED 10/09/24 10/09/24 History amLODIPine [Norvasc] 10 mg PO DAILY 10/09/24 10/09/24 History hydrALAZINE HCL [Apresoline] 25 mg PO TID-W/MEALS 10/09/24 10/09/24 History Allergies Allergy/AdvReac Type Severity Reaction Status Date / Time No Known Allergies Allergy Verified 10/09/24 18:24 Physical Exam Vitals: Vital Signs Temp Pulse Pulse Resp BP BP Pulse Ox 10/10/24 07:09 98.3 F 61 16 104/61 96 10/10/24 00:59 98.1 F 64 16 104/63 100 10/09/24 20:00 97.7 F 63 16 123/74 98 10/09/24 19:35 68 16 104/51 94 L 10/09/24 18:29 64 16 113/60 97 10/09/24 16:41 66 16 131/71 95 10/09/24 14:37 98.0 F 68 18 113/59 97 Intake and Output 10/09/24 10/10/24 10/10/24 22:59 06:59 14:59 Other: # Voids 1 2 Weight 65.771 kg Results 10/09/24 15:00 10/09/24 15:00 Cardiac Enzymes 10/09/24 10/09/24 10/09/24 Range/Units 15:00 15:00 17:21 AST 24 (14-36) U/L Troponin I <0.012 <0.012 (0.000-0.034) ng/mL 10/09/24 Range/Units 20:46 AST (14-36) U/L Troponin I <0.012 (0.000-0.034) ng/mL Coagulation 10/09/24 Range/Units 15:00 PT 10.4 (10.0-12.5) sec APTT 29.5 (22.0-30.0) sec CBC 10/09/24 Range/Units 15:00 WBC 8.83 (4.50-10.00) 10*3/uL RBC 3.70 L (4.10-5.20) 10*6/uL Hgb 11.6 L (12.0-15.0) g/dL Hct 34.2 L (37.2-46.3) % Plt Count 189 (140-440) 10*3/uL Comprehensive Metabolic Panel 10/09/24 Range/Units 15:00 Sodium 141 (137-145) mmol/L Potassium 3.8 (3.5-5.1) mmol/L Chloride 111 H (98-107) mmol/L Carbon Dioxide 22 (22-30) mmol/L BUN 41 H (7-17) mg/dL Creatinine 2.56 H (0.52-1.04) mg/dL Glucose 104 H (74-99) mg/dL Calcium 9.1 (8.4-10.2) mg/dL AST 24 (14-36) U/L ALT 16 (4-34) U/L Alkaline Phosphatase 80 (38-126) U/L Total Protein 5.9 L (6.3-8.2) g/dL Albumin 3.7 (3.5-5.0) g/dL Current Medications Generic Name Dose Route Start Last Admin Trade Name Freq PRN Reason Stop Dose Admin Allopurinol 300 mg 10/09/24 21:00 10/09/24 20:55 Allopurinol 300 Mg Tab PO 300 mg BID [facility] Administration Amlodipine Besylate 10 mg 10/10/24 09:00 Amlodipine 10 Mg Tab PO DAILY [facility] Aspirin 325 mg 10/10/24 09:00 Aspirin 325 Mg Tab PO DAILY [facility] Atorvastatin Calcium 80 mg 10/09/24 21:00 10/09/24 20:55 Atorvastatin 80 Mg Tab PO 80 mg HS [facility] Administration Dapagliflozin 10 mg 10/10/24 09:00 Dapagliflozin Propanediol 10 Mg Tablet PO DAILY [facility] Dextrose/Water 25 ml 10/09/24 17:40 Dextrose 50% Syringe 50 Ml IVP PER PROTOCOL PRN Hypoglycemia Protocol Dextrose/Water 50 ml 10/09/24 17:40 Dextrose 50% Syringe 50 Ml IVP PER PROTOCOL PRN Hypoglycemia Protocol Furosemide 40 mg 10/09/24 21:00 10/09/24 20:55 Furosemide 40 Mg Tab PO 40 mg BID@0900,1600 [facility] Administration Insulin Glargine 24 unit 10/10/24 07:00 Insulin Glargine (Lantus) 100 Unit/Ml Syr SQ DAILY@0700 [facility] Insulin Human Lispro 0 unit 10/09/24 17:40 10/10/24 05:44 Insulin Lispro (Humalog) 100 Unit/Ml 10 Ml Vl SQ Not Given AC-TID [facility] Protocol Isosorbide Mononitrate 30 mg 10/10/24 09:00 Isosorbide Mononitrate Er 30 Mg Tab.Er.24h PO DAILY [facility] Levothyroxine Sodium 200 mcg 10/10/24 06:30 10/10/24 06:16 Levothyroxine 100 Mcg Tab PO 200 mcg 0630 [facility] Administration Metoprolol Tartrate 75 mg 10/10/24 09:00 Metoprolol Tartrate 25 Mg Tab PO DAILY [facility] Multivitamins 1 each 10/10/24 09:00 Multivitamins, Thera 1 Each Tab PO DAILY [facility] Nitroglycerin 0.4 mg 10/09/24 17:15 Nitroglycerin Sl Tabs 0.4 Mg Tab SUBLINGUAL Q5M PRN Chest Pain Nitroglycerin 1 inch 10/09/24 21:00 10/10/24 05:43 Nitroglycerin Oint 1 Inch/Gm Packet TOPICAL Not Given Q6H [facility] Pantoprazole Sodium 40 mg 10/10/24 09:00 Pantoprazole 40 Mg Tablet PO DAILY [facility] Intake and Output 10/09/24 10/10/24 10/10/24 22:59 06:59 14:59 Other: # Voids 1 2 Weight 65.771 kg 10/09/24 15:00 10/09/24 15:00
[2024-10-10 12:23] LABS: Glucose,Whole Blood 97 mg/dL (70-110)
[2024-10-10 17:17] LABS: Glucose,Whole Blood 110 mg/dL (70-110)
--- NOTE | 2024-10-10 18:13 | P.HPIM ---
History of Present Illness H&P Date: 10/09/24 Chief Complaint: Chest pressure History of presenting complaint: This is a pleasant 71-year-old patient of Dr. Moore. Chronic medical conditions include coronary artery disease with stent/bypass, diabetes, hypertension, hyperlipidemia, hypothyroid, obstructive sleep apnea does not use CPAP. stent to LAD in 2016. Mitral valve repair for severe mitral regurgitation Patient presents to ER accompanied by and daughter. For 2 days she has been feeling dizzy lightheaded. Feels like she could be fainting. Chest pressure. Some nausea. Decreased appetite. No fever no chills. No edema. Review of systems: GEN.: Tired decreased appetite EYES: None HEENT: None NECK: None RESPIRATORY: None CARDIOVASCULAR: [As above GASTROINTESTINAL: None GENITOURINARY: None MUSCULOSKELETAL: None LYMPHATICS: None HEMATOLOGICAL: None PSYCHIATRY: None NEUROLOGICAL: None Past medical history to include: Coronary artery disease with stent/bypass, mitral valve repair, CHF, diabetes, hyperlipidemia, hypertension, obstructive sleep apnea does not use CPAP, hypothyroid, Social history: Lives with . No smoking or alcohol Physical examination: VITAL SIGNS: 98, 68, 18, 131/71, 95% room air GENERAL: [BMI 24.9 sitting up in bed awake not in distress. EYES: Pupils equal. Conjunctiva reinaldo l. HEENT: External appearance of nose and ears normal, oral cavity grossly normal. NECK: JVD not raised; masses not palpable. HEART: First and second heart sounds are normal; no edema. LUNGS: Respiratory rate normal; clear to auscultation. ABDOMEN: Soft, nontender, liver spleen not palpable, no masses palpable. PSYCH: Alert and oriented x3; mood and affect reinaldo l. MUSCULOSKELETAL:No Clubbing/cyanosis;muscles-grossly intact NEUROLOGICAL: Cranial nerves grossly intact; no facial asymmetry, power and sensation grossly intact. LYMPHATICS: No lymph nodes palpable in the axilla and neck Investigations October 09: White count 8.8 hemoglobin 11.6 platelets 189 sodium 141 potassium 3.8 BUN 41 creatinine 2.56 Troponin I less than 0.012 June 2022 creatinine 2.13 Assessment and plan: -Anterior chest wall pain and the patient known coronary artery disease. Off and on for 3 days. Troponin negative. Telemetry. Consult cardiology. -- chronic congestive heart failure from diastolic dysfunction EF 50%, from underlying coronary artery disease, oral Lasix -Moderate to severe tricuspid regurgitation, nontraumatic Follow clinically -Coronary artery with stent/bypass Metoprolol 75 mg twice a day, Lipitor 80 mg -Diabetes mellitus type 2, chronically on insulin Accu-Cheks with sliding scale - Anemia likely of chronic kidney disease - Pacemaker - Depression Celexa -Essential hypertension: amlodipine 10 mg daily. . Lopressor 75 mg twice a day -Chronic kidney disease stage III from nephrosclerosis and diabetic nephropathy -Hyperlipidemia 80 mg Lipitor daily -Hypothyroid Synthroid 175 g daily -Obstructive status sleep apnea does not use CPAP -Full code Discussed with the patient and daughter at the bedside. Past Medical History Past Medical History: Coronary Artery Disease (CAD), Chest Pain / Angina, Heart Failure, Diabetes Mellitus, Eye Disorder, Hyperlipidemia, Hypertension, Myocardial Infarction ([place]), Renal Disease, Sleep Apnea/CPAP/BIPAP, Thyroid Disorder Additional Past Medical History / Comment(s): Right cataract, CAD with stent to proximal LAD 03/31/2015, stent to proximal LAD 2016 Last Myocardial Infarction Date:: 03/31/2015 History of Any Multi-Drug Resistant Organisms: None Reported Past Surgical History: Breast Surgery, Heart Catheterization, Heart Catheteri zation With Stent, Pacemaker Additional Past Surgical History / Comment(s): buttocks sx-pt stated:" they told me I had gangrene and had sx to remove", lt cataract, Heart Cath 11/18/16. Past Anesthesia/Blood Transfusion Reactions: No Reported Reaction Additional Past Anesthesia/Blood Transfusion Reaction / Comment(s): confused post anethesia became agressive not sure cause Date of Last Stent Placement:: 2014 Type of Cardiac Device: Permanent Pacemaker Device Placement Date:: Unknown Past Psychological History: Depression Smoking Status: Never smoker Past Alcohol Use History: None Reported Past Drug Use History: None Reported - Past Family History Father Family Medical History: Unable to Obtain Additional Family Medical History / Comment(s): Father from motor vehicle accident Mother Family Medical History: Diabetes Mellitus, Hypertension Medications and Allergies Home Medications Medication Instructions Recorded Confirmed Type Pantoprazole [Protonix] 40 mg PO DAILY 07/25/17 10/09/24 History allopurinoL [Zyloprim] 300 mg PO BID 11/26/18 10/09/24 History Ergocalciferol [Vitamin D2 (1250 1,250 mcg PO WE 02/10/21 10/09/24 History Mcg = 56731 Iu)] Isosorbide Mononitrate ER [Imdur] 30 mg PO DAILY 02/10/21 10/09/24 History Magnesium Oxide [Razo] 500 mg PO DAILY 06/11/21 10/09/24 History Multivit/Folic Acid/Vit K1 1 tab PO DAILY 06/11/21 10/09/24 History [One-A-Day Women's 50 Plus Tab] Dapagliflozin Propanediol [Farxiga] 10 mg PO DAILY #30 tab 06/05/22 10/09/24 Rx Furosemide [Lasix] 40 mg PO BID 10/09/24 10/09/24 History Levothyroxine Sodium [Synthroid] 200 mcg PO DAILY 10/09/24 10/09/24 History Metoprolol Tartrate [Lopressor] 75 mg PO DAILY 10/09/24 10/10/24 History Rosuvastatin Calcium [Crestor] 40 mg PO DAILY 10/09/24 10/09/24 History Semaglutide [Ozempic] 0.5 mg SQ DIRECTED 10/09/24 10/09/24 History amLODIPine [Norvasc] 10 mg PO DAILY 10/09/24 10/09/24 History hydrALAZINE HCL [Apresoline] 25 mg PO TID-W/MEALS 10/09/24 10/09/24 History Allergies Allergy/AdvReac Type Severity Reaction Status Date / Time No Known Allergies Allergy Verified 10/09/24 18:24 Physical Exam Vitals: Vital Signs Temp Pulse Resp BP Pulse Ox 10/09/24 16:41 66 16 131/71 95 10/09/24 14:37 98.0 F 68 18 113/59 97 Intake and Output 10/09/24 10/09/24 10/09/24 06:59 14:59 22:59 Other: Weight 65.771 kg Results CBC & Chem 7: 10/09/24 15:00 10/09/24 15:00 Labs: Abnormal Lab Results - Last 24 Hours (Table) 10/09/24 10/09/24 Range/Units 15:00 15:00 RBC 3.70 L (4.10-5.20) 10*6/uL Hgb 11.6 L (12.0-15.0) g/dL Hct 34.2 L (37.2-46.3) % Chloride 111 H (98-107) mmol/L BUN 41 H (7-17) mg/dL Creatinine 2.56 H (0.52-1.04) mg/dL Glucose 104 H (74-99) mg/dL Magnesium 2.7 H (1.6-2.3) mg/dL Total Protein 5.9 L (6.3-8.2) g/dL
--- NOTE | 2024-10-10 18:24 | P.PN ---
Progress Note - Text Progress Note Date: 10/10/24 Chief Complaint: Chest pressure History of presenting complaint: This is a pleasant 71-year-old patient of Dr. Moore. Chronic medical conditions include coronary artery disease with stent/bypass, diabetes, hypertension, hyperlipidemia, hypothyroid, obstructive sleep apnea does not use CPAP. stent to LAD in 2017. Mitral valve repair for severe mitral regurgitation Patient presents to ER accompanied by and daughter. For 2 days she has been feeling dizzy lightheaded. Feels like she could be fainting. Chest pressure. Some nausea. Decreased appetite. No fever no chills. No edema. October 10: Patient seen by me this morning. Overnight for no further chest pain. Per nurse later seen by cardiology. Patient Accu-Cheks have been running well. Her Lantus that was reordered as a home medication was discovered that she active does not take the same. Hence it is being discontinued. She did not take it this morning. Did tell the patient sit up in a chair and increase activity. Active Medications Allopurinol (Allopurinol 300 Mg Tab) 300 mg PO BID [facility] Last Admin: 10/10/24 09:28 Dose: 300 mg Amlodipine Besylate (Amlodipine 10 Mg Tab) 10 mg PO DAILY [facility] Last Admin: 10/10/24 09:28 Dose: 10 mg Aspirin (Aspirin 325 Mg Tab) 325 mg PO DAILY [facility] Last Admin: 10/10/24 09:28 Dose: 325 mg Atorvastatin Calcium (Atorvastatin 80 Mg Tab) 80 mg PO HS [facility] Last Admin: 10/09/24 20:55 Dose: 80 mg Dapagliflozin (Dapagliflozin Propanediol 10 Mg Tablet) 10 mg PO DAILY [facility] Last Admin: 10/10/24 09:28 Dose: 10 mg Dextrose/Water (Dextrose 50% Syringe 50 Ml) 25 ml IVP PER PROTOCOL PRN; Protocol PRN Reason: Hypoglycemia Dextrose/Water (Dextrose 50% Syringe 50 Ml) 50 ml IVP PER PROTOCOL PRN; Protocol PRN Reason: Hypoglycemia Enoxaparin Sodium (Enoxaparin 40 Mg/0.4 Ml Syringe) 40 mg SQ DAILY [facility] Furosemide (Furosemide 40 Mg Tab) 40 mg PO BID@0900,1600 [facility] Last Admin: 10/10/24 16:07 Dose: 40 mg Insulin Human Lispro (Insulin Lispro (Humalog) 100 Unit/Ml 10 Ml Vl) 0 unit SQ AC-TID [facility]; Protocol Last Admin: 10/10/24 18:06 Dose: Not Given Isosorbide Mononitrate (Isosorbide Mononitrate Er 30 Mg Tab.Er.24h) 30 mg PO DAILY [facility] Last Admin: 10/10/24 09:28 Dose: 30 mg Levothyroxine Sodium (Levothyroxine 100 Mcg Tab) 200 mcg PO 0630 [facility] Last Admin: 10/10/24 06:16 Dose: 200 mcg Metoprolol Tartrate (Metoprolol Tartrate 25 Mg Tab) 75 mg PO DAILY [facility] Last Admin: 10/10/24 09:28 Dose: 75 mg Multivitamins (Multivitamins, Thera 1 Each Tab) 1 each PO DAILY [facility] Last Admin: 10/10/24 09:28 Dose: 1 each Nitroglycerin (Nitroglycerin Sl Tabs 0.4 Mg Tab) 0.4 mg SUBLINGUAL Q5M PRN PRN Reason: Chest Pain Pantoprazole Sodium (Pantoprazole 40 Mg Tablet) 40 mg PO DAILY [facility] Last Admin: 10/10/24 09:28 Dose: 40 mg Past medical history to include: Coronary artery disease with stent/bypass, mitral valve repair, CHF, diabetes, hyperlipidemia, hypertension, obstructive sleep apnea does not use CPAP, hypothyroid, Social history: Lives with . No smoking or alcohol Physical examination: VITAL SIGNS: 97.8, 59, 16, 100/60, 95% room air GENERAL: Resting in bed EYES: Pupils equal. Conjunctiva reinaldo l. HEENT: External appearance of nose and ears normal, oral cavity grossly normal. NECK: JVD not raised; masses not palpable. HEART: First and second heart sounds are normal; no edema. LUNGS: Respiratory rate normal; clear to auscultation. ABDOMEN: Soft, nontender, liver spleen not palpable, no masses palpable. PSYCH: Alert and oriented x3; mood and affect reinaldo l. MUSCULOSKELETAL:No Clubbing/cyanosis;muscles-grossly intact Investigations October 09: White count 8.8 hemoglobin 11.6 platelets 189 sodium 141 potassium 3.8 BUN 41 creatinine 2.56 Troponin I less than 0.012 June 2022 creatinine 2.13 Assessment and plan: -Anterior chest wall pain and the patient known coronary artery disease. Off and on for 3 days. Troponin negative. Telemetry. Cardiology following -- chronic congestive heart failure from diastolic dysfunction EF 50%, from underlying coronary artery disease, oral Lasix -Moderate to severe tricuspid regurgitation, nontraumatic Follow clinically -Coronary artery with stent/bypass Metoprolol 75 mg a day, Lipitor 80 mg -Diabetes mellitus type 2, controlled orally Patient not on insulin. Home medications been revised - Anemia likely of chronic kidney disease - Pacemaker - Depression Celexa -Essential hypertension: amlodipine 10 mg daily. . Lopressor 75 mg a day -Chronic kidney disease stage III from nephrosclerosis and diabetic nephropathy -Hyperlipidemia 80 mg Lipitor daily -Hypothyroid Synthroid 175 g daily -Obstructive status sleep apnea does not use CPAP -Full code Discussed with the patient and daughter at the bedside. Past Medical History Past Medical History: Coronary Artery Disease (CAD), Chest Pain / Angina, Heart Failure, Diabetes Mellitus, Eye Disorder, Hyperlipidemia, Hypertension, Myocardial Infarction ([place]), Renal Disease, Sleep Apnea/CPAP/BIPAP, Thyroid Disorder Additional Past Medical History / Comment(s): Right cataract, CAD with stent to proximal LAD 03/31/2015, stent to proximal LAD 2016 Last Myocardial Infarction Date:: 03/31/2015 History of Any Multi-Drug Resistant Organisms: None Reported Past Surgical History: Breast Surgery, Heart Catheterization, Heart Catheterization With Stent, Pacemaker Additional Past Surgical History / Comment(s): buttocks sx-pt stated:" they told me I had gangrene and had sx to remove", lt cataract, Heart Cath 11/18/16. Past Anesthesia/Blood Transfusion Reactions: No Reported Reaction Additional Past Anesthesia/Blood Transfusion Reaction / Comment(s): confused post anethesia became agressive not sure cause Date of Last Stent Placement:: 2014 Type of Cardiac Device: Permanent Pacemaker Device Placement Date:: Unknown Past Psychological History: Depression Smoking Status: Never smoker Past Alcohol Use History: None Reported Past Drug Use History: None Reported
[2024-10-10] MEDS: ENOXAPARIN 40 MG/0.4 ML SYRINGE SQ SCH (18:32)
[2024-10-10 20:10] LABS: Glucose,Whole Blood 94 mg/dL (70-110)
[2024-10-11 06:03] LABS: Glucose,Whole Blood 91 mg/dL (70-110)
[2024-10-11 07:32] VITALS: TEMP 98.1
[2024-10-11 09:40] VITALS: BP 110/70; PULSE 50
--- NOTE | 2024-10-11 10:06 | P.PN ---
Subjective Progress Note Date: 10/11/24 Consult reason: chest pain History of present illness: This is a 73-year-old female patient of Dr. Krisitna Nagy with past medical history of coronary artery disease status post CABG, paroxysmal atrial fibrillation, sick sinus syndrome status post permanent pacemaker, mitral regurgitation, s/p mitral valve repair. We have been asked to evaluate the patient for chest pain. Patient was last seen in the office on 08/03/[address] Kristina Nagy. At that time, plan was to repeat echocardiogram which has not yet been done. Patient gives history of developing chest pain and dizziness that started about 3 weeks ago. The pain was intermittent and started about 2 weeks ago. -EKG: Paced rhythm. -Chest x-ray: No acute process. -Laboratory studies: Troponin negative x 3. BUN 41, creatinine 2.56, hemoglobin 11.6. Triglycerides 110, cholesterol 75, LDL 21. -Home cardiac medications according to office notes: Amlodipine 10 mg daily, aspirin 81 mg daily, atorvastatin 80 mg daily, Farxiga 10 mg daily, Lasix 40 mg daily, hydralazine 25 mg 3 times daily, Imdur 30 mg daily, magnesium oxide 500 mg daily, metoprolol tartrate 25 mg twice daily, rosuvastatin 40 mg daily, patient is also on Ozempic. -Lexiscan Cardiolite stress test performed on 01/20/2024 in the office revealed inconclusive EKG part of the stress test due to baseline EKG abnormalities. Normal myocardial perfusion and function. -Echocardiogram performed in the office on 01/09/2024 revealed EF 55%, mild left ventricular hypertrophy, mild aortic regurgitation. Mitral valve prosthesis with normal function. Moderate tricuspid regurgitation. PASP 47 mmHg. Mild pulmonic regurgitation. -Biventricular ICD, [facility], 10/13/2019. -CABG 01/03/[address] Sawant with single-vessel CABG using left internal mammary artery to the left anterior descending artery and mitral valve repair. 10/11/2024 Patient seen and examined. No complaints of chest pain. Interrogation of device reviewed by Dr. Kendall. Only 1 brief episode of A-fib in 1 very brief episode of NSVT both only lasting a few seconds. Blood pressure 110/70, heart rate 50, pulse ox 96% on room air. Patient had recent Lizbet scan that was normal as well as echocardiogram as above. Physical examination: Gen: This is 73-year-old female in no acute distress VS: reviewed HEENT: Head is atraumatic, normocephalic. Pupils equal, round. Sclerae is anicteric. NECK: Supple. No JVD. LUNGS: Clear to auscultation. No wheezes or rhonchi. No intercostal retractions. HEART: Regular rate and rhythm. No murmur. ABDOMEN: Soft No tenderness. EXTREMITIES: No pedal edema. No calf tenderness. NEUROLOGICAL: Patient is awake, alert and oriented x3. Assessment: Atypical chest pain, acute coronary syndrome ruled out History of coronary artery disease with previous CABG Paroxysmal atrial fibrillation not on anticoagulation due to risk of bleeding Sick sinus syndrome status post ICD Mitral regurgitation status post mitral valve repair Plan: Continue patient's home cardiac medications Patient is cleared for discharge from cardiology and will follow-up with Dr. Kristina Nagy in 2 weeks. Nurse practitioner note has been reviewed, I agree with documented findings and plan of care. Patient was seen and examined. Objective - Vital Signs Vital signs: Vital Signs Temp 98.1 F 10/11/24 07:00 Pulse 59 L 10/11/24 07:00 Resp 16 10/11/24 07:00 BP 110/62 10/11/24 07:00 Pulse Ox 96 10/11/24 07:00 FiO2 Intake & Output 10/10/24 10/11/24 10/11/24 18:59 06:59 18:59 Intake Total 240 540 Balance 240 540 Intake: Oral 240 540 Other: Voiding Method Toilet Toilet # Voids 3 2 - Labs CBC & Chem 7: 10/09/24 15:00 10/09/24 15:00 Labs: Abnormal Lab Results - Last 24 Hours (Table) 10/10/24 Range/Units 06:23 HDL Cholesterol 32.00 L (40.00-60.00) mg/dL
--- NOTE | 2024-10-11 14:30 | P.DS ---
Providers Date of admission: 10/09/24 17:16 Expected date of discharge: 10/11/24 Attending physician: Johnny Capone Consults: 10/09/24 17:15 Consult Physician Urgent Consulting Provider: [facility] Consult Reason/Comments: Chest pain Do you want consulting provider notified?: Yes Primary care physician: Eduin Moore [facility] Course: Chief Complaint: Chest pressure History of presenting complaint: This is a pleasant 71-year-old patient of Dr. Moore. Chronic medical conditions include coronary artery disease with stent/bypass, diabetes, hypertension, hyperlipidemia, hypothyroid, obstructive sleep apnea does not use CPAP. stent to LAD in 2017. Mitral valve repair for severe mitral regurgitation Patient presents to ER accompanied by and daughter. For 2 days she has been feeling dizzy lightheaded. Feels like she could be fainting. Chest pressure. Some nausea. Decreased appetite. No fever no chills. No edema. October 10: Patient seen by me this morning. Overnight for no further chest pain. Per nurse later seen by cardiology. Patient Accu-Cheks have been running well. Her Lantus that was reordered as a home medication was discovered that she active does not take the same. Hence it is being discontinued. She did not take it this morning. Did tell the patient sit up in a chair and increase activity. October 11: Seen by cardiology. No further symptoms. No further changes. Patient to follow-up with Dr. Prabhjot Nagy, cardiology outpatient. Hydralazine was discontinued because of blood pressure on the lower side. At Past medical history to include: Coronary artery disease with stent/bypass, mitral valve repair, CHF, diabetes, hyperlipidemia, hypertension, obstructive sleep apnea does not use CPAP, hypothyroid, Social history: Lives with . No smoking or alcohol Physical examination: VITAL SIGNS: 98.1, 59, 16, 110 x 62, 96% room air GENERAL: Resting in bed EYES: Pupils equal. Conjunctiva reinaldo l. HEENT: External appearance of nose and ears normal, oral cavity grossly normal. NECK: JVD not raised; masses not palpable. HEART: First and second heart sounds are normal; no edema. LUNGS: Respiratory rate normal; clear to auscultation. ABDOMEN: Soft, nontender, liver spleen not palpable, no masses palpable. PSYCH: Alert and oriented x3; mood and affect reinaldo l. MUSCULOSKELETAL:No Clubbing/cyanosis;muscles-grossly intact Investigations October 09: White count 8.8 hemoglobin 11.6 platelets 189 sodium 141 potassium 3.8 BUN 41 creatinine 2.56 Troponin I less than 0.012 June 2022 creatinine 2.13 Assessment and plan: -Anterior chest wall pain and the patient known coronary artery disease. Off and on for 3 days. Troponin negative. Telemetry. Seen by Dr. Hamlet Kendall from cardiology. No further intervention. Follow-up with Dr. Prabhjot Nagy outpatient -- chronic congestive heart failure from diastolic dysfunction EF 50%, from underlying coronary artery disease, oral Lasix -Moderate to severe tricuspid regurgitation, nontraumatic Follow clinically -Coronary artery with stent/bypass Metoprolol 75 mg a day, Lipitor 80 mg -Diabetes mellitus type 2, controlled orally Patient not on insulin. Home medications been revised - Anemia likely of chronic kidney disease - Pacemaker - Depression Celexa -Essential hypertension: amlodipine 10 mg daily. . Lopressor 75 mg a day Hydralazine was discontinued as blood pressure running bit on the lower side. -Chronic kidney disease stage III from nephrosclerosis and diabetic nephropathy -Hyperlipidemia 80 mg Lipitor daily -Hypothyroid Synthroid 175 g daily -Obstructive status sleep apnea does not use CPAP -Full code Dispo patient Home Past Medical History Past Medical History: Coronary Artery Disease (CAD), Chest Pain / Angina, Heart Failure, Diabetes Mellitus, Eye Disorder, Hyperlipidemia, Hypertension, Myocardial Infarction (ID), Renal Disease, Sleep Apnea/CPAP/BIPAP, Thyroid Disorder Additional Past Medical History / Comment(s): Right cataract, CAD with stent to proximal LAD 03/31/2015, stent to proximal LAD 2016 Last Myocardial Infarction Date:: 03/31/2015 History of Any Multi-Drug Resistant Organisms: None Reported Past Surgical History: Breast Surgery, Heart Catheterization, Heart Catheterization With Stent, Pacemaker Additional Past Surgical History / Comment(s): buttocks sx-pt stated:" they told me I had gangrene and had sx to remove", lt cataract, Heart Cath 11/18/16. Past Anesthesia/Blood Transfusion Reactions: No Reported Reaction Additional Past Anesthesia/Blood Transfusion Reaction / Comment(s): confused post anethesia became agressive not sure cause Date of Last Stent Placement:: 2014 Type of Cardiac Device: Permanent Pacemaker Device Placement Date:: Unknown Past Psychological History: Depression Smoking Status: Never smoker Past Alcohol Use History: None Reported Past Drug Use History: None Reported Plan - Discharge Summary New Discharge Prescriptions: New Aspirin 81 mg PO DAILY #1 tab Continue Pantoprazole [Protonix] 40 mg PO DAILY allopurinoL [Zyloprim] 300 mg PO BID Ergocalciferol [Vitamin D2 (1250 Mcg = 92980 Iu)] 1,250 mcg PO WE Dapagliflozin Propanediol [Farxiga] 10 mg PO DAILY #30 tab amLODIPine [Norvasc] 10 mg PO DAILY Levothyroxine Sodium [Synthroid] 200 mcg PO DAILY Rosuvastatin Calcium [Crestor] 40 mg PO DAILY Isosorbide Mononitrate ER [Imdur] 30 mg PO DAILY Multivit/Folic Acid/Vit K1 [One-A-Day Women's 50 Plus Tab] 1 tab PO DAILY Furosemide [Lasix] 40 mg PO BID Metoprolol Tartrate [Lopressor] 75 mg PO DAILY Semaglutide [Ozempic] 0.5 mg SQ DIRECTED Discontinued hydrALAZINE HCL [Apresoline] 25 mg PO TID-W/MEALS No Action Magnesium Oxide [Razo] 500 mg PO DAILY Discharge Medication List Pantoprazole [Protonix] 40 mg PO DAILY 07/25/17 [History] allopurinoL [Zyloprim] 300 mg PO BID 11/26/18 [History] Ergocalciferol [Vitamin D2 (1250 Mcg = 71376 Iu)] 1,250 mcg PO WE 02/10/21 [History] Isosorbide Mononitrate ER [Imdur] 30 mg PO DAILY 02/10/21 [History] Magnesium Oxide [Razo] 500 mg PO DAILY 06/11/21 [History] Multivit/Folic Acid/Vit K1 [One-A-Day Women's 50 Plus Tab] 1 tab PO DAILY 06/11/21 [History] Dapagliflozin Propanediol [Farxiga] 10 mg PO DAILY #30 tab 06/05/22 [Rx] Furosemide [Lasix] 40 mg PO BID 10/09/24 [History] Levothyroxine Sodium [Synthroid] 200 mcg PO DAILY 10/09/24 [History] Metoprolol Tartrate [Lopressor] 75 mg PO DAILY 10/09/24 [History] Rosuvastatin Calcium [Crestor] 40 mg PO DAILY 10/09/24 [History] Semaglutide [Ozempic] 0.5 mg SQ DIRECTED 10/09/24 [History] amLODIPine [Norvasc] 10 mg PO DAILY 10/09/24 [History] Aspirin 81 mg PO DAILY #1 tab 10/11/24 [Rx] Follow up Appointment(s)/Referral(s): Eduin Moore MD [Primary Care Provider] - 1-2 days Fausto Nagy MD [STAFF PHYSICIAN] - 10/28/24 2:15 pm Discharge Disposition: HOME SELF-CARE
[2024-10-12 09:26] LABS: Glucose,Whole Blood 118 mg/dL (70-110)
== END 2024-10-11 13:42 | disposition home or self-care (01) ==
LOC: EC 14:35 → 6NMEDSUR 17:16
PROVIDERS: ADMIT Hospitalist; ATTEND Hospitalist
DX: R07.89 Other chest pain (principal); I48.0 Paroxysmal atrial fibrillation; I25.10 Atherosclerotic heart disease of native coronary artery without angina pectoris; D63.1 Anemia in chronic kidney disease; E11.22 Type 2 diabetes mellitus with diabetic chronic kidney disease; I13.0 Hypertensive heart and chronic kidney disease with heart failure and stage 1 through stage 4 chronic kidney disease, or unspecified chronic kidney disease; I50.32 Chronic diastolic (congestive) heart failure; N18.30 Chronic kidney disease, stage 3 unspecified; E78.5 Hyperlipidemia, unspecified; I49.5 Sick sinus syndrome; I08.1 Rheumatic disorders of both mitral and tricuspid valves; G47.33 Obstructive sleep apnea (adult) (pediatric); F32.A Depression, unspecified; E03.9 Hypothyroidism, unspecified; I25.2 Old myocardial infarction; Z95.2 Presence of prosthetic heart valve; Z95.5 Presence of coronary angioplasty implant and graft; Z95.810 Presence of automatic (implantable) cardiac defibrillator; Z79.899 Other long term (current) drug therapy; Z79.4 Long term (current) use of insulin; Z79.890 Hormone replacement therapy; Z79.84 Long term (current) use of oral hypoglycemic drugs; Z79.82 Long term (current) use of aspirin
CPT/HCPCS: 96372 ×2; 99285; 36415; 93005; 80061; 80053; 83735; 84484; 85025; 85610; 85730; 71046; G0378 ×3; J1650 ×2